=== PATIENT | female | born 1955 | race Caucasian/White ===

== ENCOUNTER 2020-03-01 13:52 | Inpatient (IN) | payer SELFPAY ==
--- NOTE | 2020-03-01 15:54 | CT_ITS ---
EXAMINATION: CT ABDOMEN AND PELVIS WITHOUT CONTRAST CLINICAL INFORMATION: Left-sided abdominal pain/flank pain. COMPARISON: None. TECHNIQUE: Multidetector volumetric imaging was performed from the superior aspect of the liver through the pubic symphysis. Sagittal and coronal reformatted images were obtained on the technologist's workstation. Lack of intravenous and oral contrast limits visceral evaluation. This CT examination was performed using dose optimization techniques as appropriate, variously including the following: *Automated exposure control *Adjustment of mA and/or kV according to patient size (this includes techniques or standardized protocols for targeted exams where dose is matched to indication/reason for exam; i.e. extremities or head) *Use of iterative reconstruction technique DLP: 430.12 mGy-cm FINDINGS: LUNG BASES: The visualized lung bases are unremarkable. LIVER, GALLBLADDER, AND BILIARY TREE: No hepatic abnormality. Status post cholecystectomy. PANCREAS: Unremarkable. SPLEEN: Unremarkable. ADRENAL GLANDS: Unremarkable. KIDNEYS AND URETERS: Mild left renal pelvicaliectasis is seen no left ureterectasis. No left nephrolithiasis. Small noncalcified fluid attenuation cysts are seen. A loss prevention representative exophytic cyst off of the upper pole measures 1.9 cm (image 43, series 5). The right kidney shows a 0.6 cm calculus in the upper pole. The right ureter is unremarkable. BLADDER: Incompletely distended without focal abnormality. GASTROINTESTINAL TRACT: The stomach is a very small hiatal hernia. The small bowel is unremarkable. The appendix is not visualized, but no evidence for acute inflammatory process in the right lower quadrant. The proximal descending colon shows a short segment of mural thickening with mild pericolonic infiltrative changes. No focal air or fluid collection is seen. The distal colon is unremarkable. ABDOMINAL WALL: No significant hernia is appreciated. LYMPH NODES: Normal. VASCULAR: Unremarkable. PELVIC VISCERA: Unremarkable. Mild free fluid is seen OSSEOUS STRUCTURES: L5-S1 mild degenerative disc disease. No suspicious abnormality. CT/CT abdomen pelvis wo con IMPRESSION: 1. Short segment mural thickening and pericolonic infiltrative changes in the proximal descending colon most consistent with acute diverticulitis or short segment colitis as a definitive diverticulum is not seen. 2. Mild left pelvocaliectasis without obstructing abnormality could be secondary to left ureteropelvic junction stenosis. Left renal cysts demonstrate benign features. Nonobstructing right upper pole intrarenal calculus. 3. Mild free fluid in the pelvis is presumed secondary to the colonic findings. 4. Very small hiatal hernia.
--- NOTE | 2020-03-01 15:58 | ED_ITS ---
HPI - Abdominal Pain General Chief Complaint: General Medical Stated Complaint: UTI Time Seen by Provider: 03/01/20 15:54 Source: patient Mode of arrival: ambulatory Limitations: no limitations History of Present Illness HPI narrative: 64-year-old female who reports that she has a history of diet- controlled diabetes presents ambulatory via triage from [facility] urgent care where she was referred from with a complaint of left-sided flank pain for the past couple of days prior to that she has had some dysuria with clotting of the urine and did notice very mild hematuria couple days ago. States he has had chi lls and subjective fever. States she does have remote history of UTI in the distant past but no history of frequent UTI. She denies any other symptoms. No vaginal discharge. No nausea vomiting or diarrhea. No recent travel or sick contacts. No URI symptoms. No chest pain or shortness of breath. States her pain has gotten progressively worse that trigger her to seek care today and pain is in the left side abdomen/flank. MD elicited complaint: flank pain Pertinent past history: past UTI Onset (ago): day(s) Pain Consistency: constant Location: L flank Severity: moderate Radiation: none Migration to: no migration Exacerbating factors: nothing Relieving factors: nothing Associated symptoms: denies other symptoms Related Data Home Medications Medication Instructions Recorded Confirmed No Known Home Meds 03/01/20 03/01/20 Allergies Allergy/AdvReac Type Severity Reaction Status Date / Time demerol Allergy Unknown swelling Uncoded 12/25/18 00:00 From DEMEROL Allergy Unknown UNKNOWN Uncoded 01/23/20 16:15 Review of Systems Review of Systems Constitutional: No Weight loss, Subjective Fever, Chills, No Night Sweats, No Fatigue, No Malaise ENT/Mouth: No Hearing loss, No Ear Pain, No Nasal Congestion, No Sinus Pain, No Hoarseness, No sore throat, No Rhinorrhea, No Swallowing Difficulty Eyes: No Eye Pain, No Swelling, No Redness, No Foreign Body, No Discharge, No Vision Changes Cardiovascular: No Chest Pain, No SOB, No Dyspnea on Exertion, No Orthopnea, No Edema, No Palpitations Respiratory: No Cough, No Sputum, No Wheezing, No Smoke Exposure, No Dyspnea Gastrointestinal: No Nausea, No Vomiting, No Diarrhea, No Constipation, + abdo vandana Pain, No Hematochezia, No Melena Genitourinary: no irregular bleeding, + Dysuria, No Urinary Frequency, No Hematuria, No Urinary Incontinence, No Urgency, + Flank Pain, No Urinary Flow Changes, No Hesitancy Musculoskeletal: No joint pain, No Myalgias, No Joint Swelling Skin: No Skin Lesions, No rash Neuro: No Weakness, No Numbness, No Paresthesias, No Loss of Consciousness, No Dizziness, No Headache Psych: No Anxiety/Panic, No Social Issues Heme/Lymph: No Bruising, No Bleeding,No Lymphadenopathy Endocrine: No Polyuria, No Polydipsia, No Temperature Intolerance Yes all other systems are reviewed and are negative Physical Exam Vital Signs: Vital Signs: Vital Signs Temp Pulse Resp BP Pulse Ox 03/01/20 19:51 99.9 F 104 H 15 135/60 98 03/01/20 18:35 99.1 F 03/01/20 16:07 100.0 F 118 H 16 135/61 98 Body Mass Index 24.0 Reviewed Const: General: cooperative and healthy appearing; No acute distress or intoxicated appearing Nutritional Appearance: average body habitus Orientation/consciousness: patient oriented x3 HENMT: Head: Yes normal to inspection Ears: hearing grossly normal bilaterally Eyes: General: appearance normal, both eyes and all related structures Visual Nieves: normal visual nieves by confrontation Neck: Neck: Yes normal visual inspection and No tender Thyroid: Thyroid normal Chest: Chest palpation & inspection: normal inspection of the chest Resp: Effort & Inspection: normal respiratory effort Cardio: Jugular venous distension: no JVD GI: Other: no peritonitis/ TTP Inspection: Yes normal to inspection Percussion: Yes normal to percussion Auscultation: normal bowel sounds : General: Yes CVA tenderness ( left-sided mild ) Back/Spine/Pelvis: Back: CVA tenderness ( left-sided mild ) Skin: General skin exam: no rashes or lesions noted Neuro: General: patient oriented x3 Extrem: General: Yes normal to inspection Course Course Course Narrative: 1600 interview 64-year-old female with history of dietary controlled diabetes presenting with dysuria and now left flank pain with subjective fever and chills for past 5 days referred from the urgent care. Hemodynamically stable. Afebrile / non tachy. will need labs, UA, abdominal CT r/o renal calculi/ obstructive process. Differential diagnosis include but not limited to urinary tract infection, renal calculi, hydro, pyelonephritis, urosepsis though not evident at this time. Lactic acid as well as blood cultures were also ordered. Reevaluation(s) Reevaluation #1: UA overtly infected. CT consistent with acute diverticulitis. No leukocytosis /no lactic acidosis. Low-grade temp. She was given ceftriaxone already. Given Flagyl case discussed with hospitalist for admission. Consultations Consultation #1: Hospitalist MDM - Abdominal Pain Differential Diagnosis Differential diagnosis: Likely abdominal pain, calculus of kidney, diverticulitis, gastroenteritis and renal colic; Unlikely aortic dissection, acute appendicitis, bowel perforation, constipation, endometriosis, gastritis, mesenteric ischemia, ovarian cyst, pancreatitis, peptic ulcer disease and small bowel obstruction Lab Data Result diagrams: 03/01/20 16:18 03/01/20 16:18 Labs: Lab Results 03/01/20 03/01/20 03/01/20 Range/Units 16:18 16:18 16:18 WBC 6.5 (4.8-10.8) X10*3/uL RBC 4.09 L (4.20-5.50) X10*6/uL Hgb 12.6 (12.0-16.0) g/dl Hct 37.5 (37-47) % MCV 91.7 (80-98) fL MCH 30.8 (27.0-33.0) pg MCHC 33.6 (31.0-35.0) g/dl RDW 11.9 (11.0-16.0) % Plt Count 89 L (160-400) X10*3/uL MPV 10.8 (9.4-12.3) fL Immature Gran % (Auto) 0.3 (0.0-0.4) % Neut % (Auto) 90.6 H (45-73) % Lymph % (Auto) 2.8 L (20-40) % [place] % (Auto) 6.3 (2-11) % Eos % (Auto) 0.0 (0-4) % Baso % (Auto) 0.0 (0-2) % Lymph # (Auto) 0.2 L (1.2-4.9) X10*3/uL [place] # (Auto) 0.4 (0.1-1.2) X10*3/uL Eos # (Auto) 0.0 (0.0-0.4) X10*3/uL Baso # (Auto) 0.0 (0.0-0.2) X10*3/uL Abs Immat Gran (auto) 0.02 (0.00-0.03) X10*3/uL Absolute Neuts (auto) 5.9 (2.0-8.3) X10*3/uL Absolute Nucleated RBC 0.000 (0.0-0.012) X10*3/uL Nucleated RBC % (auto) 0.0 (0.0-0.2) /100WBC Smear Tech's Comments VERIFIED Sodium 134 L (135-145) mmol/L Potassium 3.9 (3.3-5.1) mmol/l Chloride 97 (96-108) mmol/L Carbon Dioxide 21 L (22-29) mmol/L Anion Gap 20 (12-20) BUN 15 (9-16) mg/dL Creatinine 0.98 (0.5-1.4) mg/dL Estim Creat Clear Calc 50.1 Estimated GFR 57 Random Glucose 305 H (60-115) mg/dL Lactic Acid (0.5-2.0) mmol/L Calcium 9.3 (8.4-10.2) mg/dL Total Bilirubin 1.0 (0.0-1.0) mg/dL AST 27 (5-31) U/L ALT 17 (0-31) U/L Alkaline Phosphatase 92 (39-117) U/L Total Protein 6.8 (6.5-8.0) g/dL Albumin 4.0 (3.5-5.0) g/dL Urine Color YELLOW Urine Appearance CLOUDY Urine pH 5.5 (5.0-8.0) Ur Specific [place] >= 1.030 H (1.005-1.025) Urine Protein 2+ H (NEG-TRACE) MG/DL Urine Glucose (UA) 500 H (NEG) MG/DL Urine Ketones >=80 (NEG) MG/DL Urine Blood 2+ H (NEG) Urine Nitrite POS H (NEG) Ur Leukocyte Esterase NEG (NEG) Urine RBC 30-49 H (0) /HPF Urine WBC 15-29 H (0-4) /HPF Ur Squamous Epith Cells 2+ /LPF Urine Bacteria 2+ /LPF Coronavirus (PCR) (Negative) 03/01/20 03/01/20 Range/Units 16:53 19:18 WBC (4.8-10.8) X10*3/uL RBC (4.20-5.50) X10*6/uL Hgb (12.0-16.0) g/dl Hct (37-47) % MCV (80-98) fL MCH (27.0-33.0) pg MCHC (31.0-35.0) g/dl RDW (11.0-16.0) % Plt Count (160-400) X10*3/uL MPV (9.4-12.3) fL Immature Gran % (Auto) (0.0-0.4) % Neut % (Auto) (45-73) % Lymph % (Auto) (20-40) % [place] % (Auto) (2-11) % Eos % (Auto) (0-4) % Baso % (Auto) (0-2) % Lymph # (Auto) (1.2-4.9) X10*3/uL [place] # (Auto) (0.1-1.2) X10*3/uL Eos # (Auto) (0.0-0.4) X10*3/uL Baso # (Auto) (0.0-0.2) X10*3/uL Abs Immat Gran (auto) (0.00-0.03) X10*3/uL Absolute Neuts (auto) (2.0-8.3) X10*3/uL Absolute Nucleated RBC (0.0-0.012) X10*3/uL Nucleated RBC % (auto) (0.0-0.2) /100WBC Smear Tech's Comments Sodium (135-145) mmol/L Potassium (3.3-5.1) mmol/l Chloride (96-108) mmol/L Carbon Dioxide (22-29) mmol/L Anion Gap (12-20) BUN (9-16) mg/dL Creatinine (0.5-1.4) mg/dL Estim Creat Clear Calc Estimated GFR Random Glucose (60-115) mg/dL Lactic Acid 1.6 (0.5-2.0) mmol/L Calcium (8.4-10.2) mg/dL Total Bilirubin (0.0-1.0) mg/dL AST (5-31) U/L ALT (0-31) U/L Alkaline Phosphatase (39-117) U/L Total Protein (6.5-8.0) g/dL Albumin (3.5-5.0) g/dL Urine Color Urine Appearance Urine pH (5.0-8.0) Ur Specific [place] (1.005-1.025) Urine Protein (NEG-TRACE) MG/DL Urine Glucose (UA) (NEG) MG/DL Urine Ketones (NEG) MG/DL Urine Blood (NEG) Urine Nitrite (NEG) Ur Leukocyte Esterase (NEG) Urine RBC (0) /HPF Urine WBC (0-4) /HPF Ur Squamous Epith Cells /LPF Urine Bacteria /LPF Coronavirus (PCR) NEGATIVE (Negative) Discharge Plan Discharge Clinical Impression: Diverticulitis, UTI (urinary tract infection), Diabetes Patient Disposition: Admitted As Inpatient Prescriptions: No Action No Known Home Meds RF: 0 PMFSH Past Medical History Attestation statement: The following information was validated with the patient. Medical History (Updated 03/01/20 @ 21:00 by Lee Engle NP) Diabetes Family History Family History (Updated 03/01/20 @ 19:49 by Stacy Villanueva NP) Father Pancreatic cancer Social History Social History (Updated 03/01/20 @ 19:49 by Stacy Villanueva NP) Household Members: Spouse and Children Smoked in Last 30 Days: No Use of substances other than those prescribed or required for medical reasons: No Advance Directives: No Advance Directives Information Provided: Yes
[2020-03-01 16:07] VITALS: BP 135/61; PULSE 118; RESP 16; TEMP 37.8; O2SAT 98; BMI 24.0
[2020-03-01 16:32] LABS: MANUAL DIFF FLAG SCAN; Mean Corpuscular HGB Conc 33.6 g/dl (31.0-35.0); Mean Corpuscular Hemoglobin 30.8 pg (27.0-33.0); Mean Corpuscular Volume 91.7 fL (80-98); PLT CLUMP 1; Red Cell Distribution Width 11.9 % (11.0-16.0); SCAN SMEAR FLAG 1
[2020-03-01 16:34] LABS: Hematocrit 37.5 % (37-47); Hemoglobin 12.6 g/dl (12.0-16.0); Imm Gran Abs Auto 0.02 X10*3/uL (0.00-0.03); Imm Gran Pct Auto 0.3 % (0.0-0.4); Lymphocytes Absolute Auto 0.2 X10*3/uL (1.2-4.9); Lymphocytes Percent Auto 2.8 % (20-40); Mean Platelet Volume 10.8 fL (9.4-12.3); Monocytes Absolute Auto 0.4 X10*3/uL (0.1-1.2); Monocytes Percent Auto 6.3 % (2-11); Neutrophils Absolute Auto 5.9 X10*3/uL (2.0-8.3); Neutrophils Percent Auto 90.6 % (45-73); Red Blood Count 4.09 X10*6/uL (4.20-5.50); White Blood Count 6.5 X10*3/uL (4.8-10.8)
[2020-03-01 16:40] LABS: Glucose Urine UA 500 MG/DL (NEG); Leukocyte Esterase Urine NEG (NEG); Nitrite Urine POS (NEG); PH 5.5 (5.0-8.0); Specific Gravity - Urine >= 1.030 (1.005-1.025); Urine Blood 2+ (NEG); Urine Ketones >=80 MG/DL (NEG); Urine Protein 2+ MG/DL (NEG-TRACE)
[2020-03-01 16:43] LABS: Appearance Urine CLOUDY; Color Urine YELLOW
[2020-03-01 16:50] LABS: Platelet Count 89 X10*3/uL (160-400)
[2020-03-01 16:51] LABS: SLIDE REVIEW VERIFIED
[2020-03-01 16:56] LABS: RBC Urine 30-49 /HPF (0)
[2020-03-01 16:57] LABS: Bacteria Urine 2+ /LPF; Squamous Epithelial Cell Urine 2+ /LPF
[2020-03-01] MEDS: 0.9 % Sodium Chloride 500 ML 1000 ML IV (17:01)
[2020-03-01] MEDS: Acetaminophen 325 MG TABLET 650 MG PO ×2 (17:06→22:16)
[2020-03-01 17:22] LABS: Alanine Aminotransferase 17 U/L (0-31); Alkaline Phosphatase 92 U/L (39-117); Anion Gap 20 (12-20); Aspartate Amino Transferase 27 U/L (5-31); Blood Urea Nitrogen 15 mg/dL (9-16); Calcium 9.3 mg/dL (8.4-10.2); Carbon Dioxide 21 mmol/L (22-29); Chloride 97 mmol/L (96-108); Creatinine Clr Calc Pharmacy 50.1; Estimated Glomerular Filt Rate 57; Glucose Random 305 mg/dL (60-115); Potassium 3.9 mmol/l (3.3-5.1); Sodium 134 mmol/L (135-145); Total Protein 6.8 g/dL (6.5-8.0)
[2020-03-01 17:25] LABS: Lactic Acid 1.6 mmol/L (0.5-2.0)
[2020-03-01] MEDS: cefTRIAXone sodium 1 GM in 0.9 % Sodium Chloride 50 ML IV (17:32)
[2020-03-01 18:35] VITALS: TEMP 37.3
--- NOTE | 2020-03-01 19:43 | PM.IMHP ---
History of Present Illness Date of Service: 03/01/20 <Stacy Villanueva NP - Last Filed: 03/01/20 19:55> Chief Complaint: Abdominal pain <Stacy Villanueva NP - Last Filed: 03/01/20 19:55> 64-year-old woman presenting to the ER with complaints of abdominal pain. She reports she has had abdominal pain for the last 4 days with nausea, vomiting but denies diarrhea. She reported that she has felt unwell with poor appetite and developed fever and chills at home. She denied any recent travel or improperly cooked foods or any history of IBD. Abdominal CT is showing acute diverticulitis. She is not noted to have elevated white blood cell count , she had a low-grade temperature of a 100.0 degrees. Urinalysis was positive. She was given IV fluids, Tylenol, Rocephin while in the ER. She will be admitted for further management treatment of acute diverticulitis and UTI. <Stacy Villanueva NP - Last Filed: 03/01/20 19:55> Review of Systems Review of Systems: Reports fever and poor appetite respiratory denies any shortness of breath coverage production cardiovascular is adjustment of any PND or edema gastrointestinal see above genitourinary reports hematuria musculoskeletal denies any joint pain or swelling neuropsych denies any weakness or seizures all other systems reviewed are negative <DIGNA Miller Last Filed: 03/01/20 19:55> [facility] Medical History: Medical History Diabetes History of cellulitis <DIGNA Miller Last Filed: 03/01/20 19:55> Functional capacity: independent ambulation <Stacy Villanueva NP - Last Filed: 03/01/20 19:55> Family History: Family History Father Pancreatic cancer Mother NHL (non-Hodgkin's lymphoma) <DIGNA Miller Last Filed: 03/01/20 19:55> Surgical History: Surgical History H/O tubal ligation Hx of tonsillectomy S/P cholecystectomy (~1988) S/P right knee arthroscopy (~2002) <DIGNA Miller Last Filed: 03/01/20 19:55> Social History: Social History Household Members: Spouse and Children Housing: House Smoking Status: Never smoker Second Hand Smoke Exposure: No service: No Current occupational status: unemployed and previously employed 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 <Stacy Villanueva NP - Last Filed: 03/01/20 19:55> Meds Allergies/Adverse reactions: Allergies Allergy/AdvReac Type Severity Reaction Status Date / Time demerol Allergy Unknown swelling Uncoded 12/25/18 00:00 From DEMEROL Allergy Unknown UNKNOWN Uncoded 01/23/20 16:15 <Stacy Villanueva NP - Last Filed: 03/01/20 19:55> Physical Exam Vital Signs and Narrative: Vital Signs: Last Vital Signs Temp 99.1 F 03/01/20 18:35 Pulse 118 H 03/01/20 16:07 Resp 16 03/01/20 16:07 BP 135/61 03/01/20 16:07 Pulse Ox 98 03/01/20 16:07 Body Mass Index 24.0 <Stacy Villanueva NP - Last Filed: 03/01/20 19:55> Appearing in no acute distress head is normocephalic atraumatic eyes pupils are PERRLA sclera is anicteric mouth throat mucous membranes are intact and moist neck is supple no lymphadenopathy, no JVD noted lung sounds are clear to auscultation heart regular rate rhythm, clear S1, S2 positive bowel sounds. lower abdominal pain neuro patient is alert x3, no focal deficits <Stacy Villanueva NP - Last Filed: 03/01/20 19:55> Results Labs Labs: Laboratory Tests 03/01/20 03/01/20 03/01/20 16:18 16:18 16:18 WBC 6.5 RBC 4.09 L Hgb 12.6 Hct 37.5 MCV 91.7 MCH 30.8 MCHC 33.6 RDW 11.9 Plt Count 89 L MPV 10.8 Immature Gran % (Auto) 0.3 Neut % (Auto) 90.6 H Lymph % (Auto) 2.8 L [place] % (Auto) 6.3 Eos % (Auto) 0.0 Baso % (Auto) 0.0 Lymph # (Auto) 0.2 L [place] # (Auto) 0.4 Eos # (Auto) 0.0 Baso # (Auto) 0.0 Abs Immat Gran (auto) 0.02 Absolute Neuts (auto) 5.9 Absolute Nucleated RBC 0.000 Nucleated RBC % (auto) 0.0 Smear Tech's Comments VERIFIED Sodium 134 L Potassium 3.9 Chloride 97 Carbon Dioxide 21 L Anion Gap 20 BUN 15 Creatinine 0.98 Estim Creat Clear Calc 50.1 Estimated GFR 57 Random Glucose 305 H Lactic Acid Calcium 9.3 Total Bilirubin 1.0 AST 27 ALT 17 Alkaline Phosphatase 92 Total Protein 6.8 Albumin 4.0 Urine Color YELLOW Urine Appearance CLOUDY Urine pH 5.5 Ur Specific [place] >= 1.030 H Urine Protein 2+ H Urine Glucose (UA) 500 H Urine Ketones >=80 Urine Blood 2+ H Urine Nitrite POS H Ur Leukocyte Esterase NEG Urine RBC 30-49 H Urine WBC 15-29 H Ur Squamous Epith Cells 2+ Urine Bacteria 2+ 03/01/20 16:53 WBC RBC Hgb Hct MCV MCH MCHC RDW Plt Count MPV Immature Gran % (Auto) Neut % (Auto) Lymph % (Auto) [place] % (Auto) Eos % (Auto) Baso % (Auto) Lymph # (Auto) [place] # (Auto) Eos # (Auto) Baso # (Auto) Abs Immat Gran (auto) Absolute Neuts (auto) Absolute Nucleated RBC Nucleated RBC % (auto) Smear Tech's Comments Sodium Potassium Chloride Carbon Dioxide Anion Gap BUN Creatinine Estim Creat Clear Calc Estimated GFR Random Glucose Lactic Acid 1.6 Calcium Total Bilirubin AST ALT Alkaline Phosphatase Total Protein Albumin Urine Color Urine Appearance Urine pH Ur Specific [place] Urine Protein Urine Glucose (UA) Urine Ketones Urine Blood Urine Nitrite Ur Leukocyte Esterase Urine RBC Urine WBC Ur Squamous Epith Cells Urine Bacteria <Stacy Villanueva NP - Last Filed: 03/01/20 19:55> Assessment and Plan (1) Diverticulitis: Problem details: Most likely diverticultis rather than UTI but hematuria concerning <Stacy Villanueva NP - Last Filed: 03/01/20 19:55> Status: Acute <Stacy Villanueva NP - Last Filed: 03/01/20 19:55> (2) UTI (urinary tract infection): Status: Acute <Stacy Villanueva NP - Last Filed: 03/01/20 19:55> (3) Diabetes: Status: Acute <Stacy Villanueva NP - Last Filed: 03/01/20 19:55> 64-year-old woman admitted with acute diverticulitis and urinary tract infection. She has no history of diverticulitis in the past. She reports that she only has a history of diabetes. Acute diverticulitis. GI consultation, IV fluids, clears for now. Will treat with Rocephin and Flagyl for now. UTI. Continue Rocephin, follow urine cultures. Diabetes mellitus. Sliding scale, clear diet for now and advance to ADA diet /Vegan diet DVT prophylaxis with heparin Case discussed with Dr. Collier Full code <Stacy Villanueva NP - Last Filed: 03/01/20 19:55>
[2020-03-01 19:51] VITALS: BP 135/60; PULSE 104; RESP 15; TEMP 37.7; O2SAT 98
[2020-03-01] MEDS: metroNIDAZOLE/NS 500 MG/100 ML PIGGYBACK 100 MG IV (20:01)
[2020-03-01 20:18] LABS: SARS COV2 PCR INHOUSE NEGATIVE (Negative)
[2020-03-01] MEDS: ondansetron HCL 4 MG/2 ML VIAL IVPUSH (20:55)
[2020-03-01] MEDS: Morphine Sulfate 4 MG/ML CARTRIDGE IVPUSH (20:55)
--- NOTE | 2020-03-01 21:04 | PC.NURSE ---
{Report called to give to floor. Glenn Zimmerman will call back for report
[2020-03-01 22:07] VITALS: BP 132/60; PULSE 132; RESP 18; TEMP 38.8; O2SAT 94
[2020-03-01 22:11] LABS: Glucose, Whole Blood 255 mg/dL (60-115)
[2020-03-01] MEDS: 0.9 % Sodium Chloride 1,000 ML 100 ML IVCONT (22:17)
[2020-03-01] MEDS: Heparin Sodium,Porcine 5,000 UNIT/ML VIAL 5000 UNIT SUBCUT (22:17)
[2020-03-01 22:35] VITALS: BP 132/60; PULSE 134; RESP 18; TEMP 38.8; O2SAT 94
[2020-03-01 23:47] VITALS: BP 111/49; PULSE 100; RESP 19; TEMP 37.9; O2SAT 96
[2020-03-02] MEDS: metroNIDAZOLE/NS 500 MG/100 ML PIGGYBACK 100 MG IV ×3 (03:46→19:23)
[2020-03-02 03:54] VITALS: BP 117/56; PULSE 99; RESP 18; TEMP 37.4; O2SAT 96
[2020-03-02] MEDS: Acetaminophen 325 MG TABLET 650 MG PO ×3 (04:18→19:23)
[2020-03-02 06:13] LABS: PLT CLUMP 1; Red Cell Distribution Width 11.9 % (11.0-16.0)
[2020-03-02 06:15] LABS: Hematocrit 30.8 % (37-47); Hemoglobin 10.1 g/dl (12.0-16.0); Mean Corpuscular HGB Conc 32.8 g/dl (31.0-35.0); Mean Corpuscular Hemoglobin 30.1 pg (27.0-33.0); Mean Corpuscular Volume 91.7 fL (80-98); Mean Platelet Volume 10.8 fL (9.4-12.3); Platelet Count 77 X10*3/uL (160-400); Red Blood Count 3.36 X10*6/uL (4.20-5.50); White Blood Count 4.6 X10*3/uL (4.8-10.8)
[2020-03-02 06:39] LABS: Anion Gap 17 (12-20); Blood Urea Nitrogen 16 mg/dL (9-16); Calcium 8.2 mg/dL (8.4-10.2); Carbon Dioxide 21 mmol/L (22-29); Chloride 101 mmol/L (96-108); Creatinine Clr Calc Pharmacy 66.3; Estimated Glomerular Filt Rate > 60; Glucose Random 236 mg/dL (60-115); Potassium 3.5 mmol/l (3.3-5.1); Sodium 135 mmol/L (135-145)
[2020-03-02 07:40] LABS: Band Neutrophils Percent 12 % (3-5); Lymphocytes Percent Manual 1 % (20-40); Metamyelocytes Percent 1 %; Monocytes Absolute Manual 0.3 X10*3/uL (0.0-1.2); Monocytes Percent Manual 7 % (2-11); Neutrophils Absolute Manual 4.2 X10*3/uL (2.2-7.9); Neutrophils Percent Manual 79 % (45-73); Platelet Estimate DECREASED (NORMAL); Platelet Morphology Comment NORMAL
[2020-03-02 07:41] LABS: RBC Morphology NORMAL
[2020-03-02] MEDS: Heparin Sodium,Porcine 5,000 UNIT/ML VIAL 5000 UNIT SUBCUT ×2 (07:46→21:16)
[2020-03-02] MEDS: 0.9 % Sodium Chloride 1,000 ML 100 ML IVCONT ×2 (07:46→16:26)
--- NOTE | 2020-03-02 07:48 | P.CNGI_ITS ---
History of Present Illness Data of Consult Service Date: 03/02/20 Requesting physician: Stacy Villanueva Primary Care Provider: MD WILL Coto Reason for consult: Diverticulitis 64 YF with DM seen at [facility] on 03/01/20 with 3 day hx of left flank pain and dysurea. Abd pain was accompanied by decreased appetite, nausea and an episode of vomiting on 02/28/[address] scan showed: 1. Short segment mural thickening and pericolonic infiltrative changes in the proximal descending colon most consistent with acute diverticulitis or short segment colitis as a definitive diverticulum is not seen. 2. Mild left pelvocaliectasis without obstructing abnormality could be secondary to left ureteropelvic junction stenosis. Left renal cysts demonstrate benign features. Nonobstructing right upper pole intrarenal calculus. 3. Mild free fluid in the pelvis is presumed secondary to the colonic findings. 4. Very small hiatal hernia. Pt was started on IV antibiotics and admitted for further management. She notes improvement in abd pain from 02/14 on admission to 08/15 today. She complains of heartburn and odynophagia since yesterday. Patient admits to taking ibuprofen p.r.n. for a back pain. Patient denies major cardiac or pulmonary problems. She notes some snoring but denies obstructive sleep apnea. She denies problems with anesthesia in the past. Review of Systems Constitutional: Constitutional: Reports fever(s), Denies headache(s) and Denies weight loss Eyes: Eyes: Denies eye discharge and Denies irritation ENT: Reports Normal hearing present, Denies dysphagia, Denies dizziness, Denie s headache(s) and Reports odynophagia Cardiovascular: Cardiovascular: Reports chest pain, Denies leg edema and Denies dyspnea on exertion Respiratory: Respiratory: Denies cough and Denies dyspnea on exertion Gastrointestinal: Gastrointestinal: Reports abdominal pain, Denies change in bowel habits, Denies dysphagia, Reports heartburn, Reports diarrhea, Reports nausea, Reports odynophagia and Reports vomiting Genitourinary: Genitourinary: Denies difficulty voiding, Reports dysuria and Reports flank pain Musculoskeletal: Musculoskeletal: Denies back pain and Denies arthralgias Integumentary/Breasts: Skin/Breast: Denies pruritus, Denies rash and Denies jaundice Neurologic: Reports Normal hearing present, Denies Abnormal speech present, Denies dizziness, Denies headache(s) and Denies seizure-like activity Psychiatric: Psychiatric: Denies anxiety, Denies depression and Denies panic attacks Endocrine: Endocrine: Denies cold intolerance, Denies flushing and Denies heat intolerance Hematologic/Lymphatic: Hematologic/Lymphatic: Denies easy bleeding and Denies easy bruising PMFSH Past Medical History Medical History Diabetes History of cellulitis Functional capacity: independent ambulation Family History Family History Father Pancreatic cancer Mother NHL (non-Hodgkin's lymphoma) Surgical History Surgical History H/O tubal ligation Hx of tonsillectomy S/P cholecystectomy (~1988) S/P right knee arthroscopy (~2002) Social History Social History Household Members: Spouse and Children Housing: House Smoking Status: Never smoker Second Hand Smoke Exposure: No service: No Current occupational status: unemployed and previously employed 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 Allergy/AdvReac Type Severity Reaction Status Date / Time demerol Allergy Unknown swelling Uncoded 12/25/18 00:00 From DEMEROL Allergy Unknown UNKNOWN Uncoded 01/23/20 16:15 Physical Exam Vital Signs: Vital Signs: Vital Signs Temp Pulse Resp BP Pulse Ox 03/02/20 03:54 99.3 F 99 18 117/56 L 96 03/01/20 23:47 100.2 F 100 19 111/49 L 96 03/01/20 22:35 101.9 F H 134 H 18 132/60 94 03/01/20 22:07 101.9 F H 132 H 18 132/60 94 03/01/20 19:51 99.9 F 104 H 15 135/60 98 03/01/20 18:35 99.1 F 03/01/20 16:07 100.0 F 118 H 16 135/61 98 Body Mass Index 24.0 Const: General: no acute distress and ill appearing Nutritional Appearance: average body habitus Orientation/consciousness: patient oriented x3 Eyes: General: appearance normal, both eyes and all related structures Neck: Neck: Yes normal visual inspection Resp: Auscultation: clear to auscultation bilaterally Cardio: Rhythm: regular rhythm Heart sounds: S1 normal heart sound present, S2 normal heart sound present and no murmurs GI: Palpation (GI): Tenderness to palpation present (GI) (LLQ and lt flank) Auscultation: normal bowel sounds Rectal Exam - Female: deferred Neuro: General: patient oriented x3 Cranial nerves: Yes Normal hearing present Speech: No Abnormal speech present Results Labs CBC & Chem 7: 03/04/20 06:09 03/05/20 05:38 Labs: Short CBC 03/01/20 03/02/20 Range/Units 16:18 05:35 WBC 6.5 4.6 L (4.8-10.8) X10*3/uL Hgb 12.6 10.1 L (12.0-16.0) g/dl Hct 37.5 30.8 L (37-47) % Plt Count 89 L 77 L (160-400) X10*3/uL BMP 03/01/20 03/02/20 16:18 05:35 Sodium 134 L 135 Potassium 3.9 3.5 Chloride 97 101 Carbon Dioxide 21 L 21 L BUN 15 16 Creatinine 0.98 0.74 Calcium 9.3 8.2 L Liver Function 03/01/20 Range/Units 16:18 Total Bilirubin 1.0 (0.0-1.0) mg/dL AST 27 (5-31) U/L ALT 17 (0-31) U/L Alkaline Phosphatase 92 (39-117) U/L Albumin 4.0 (3.5-5.0) g/dL Urine 03/01/20 Range/Units 16:18 Urine Color YELLOW Urine Appearance CLOUDY Urine pH 5.5 (5.0-8.0) Ur Specific Trout >= 1.030 H (1.005-1.025) Urine Protein 2+ H (NEG-TRACE) MG/DL Urine Glucose (UA) 500 H (NEG) MG/DL Microbiology Microbiology Results: Microbiology 03/01/20 16:18 Blood - Venous Blood Culture - Preliminary 03/01/20 16:53 Blood - Venous Blood Culture - Preliminary Assessment and Plan (1) Diverticulitis: Problem details: Most likely diverticultis rather than UTI but hematuria concerning Status: Acute (2) UTI (urinary tract infection): Status: Acute 64 YF from [facility] ([facility]) with DM admitted with fever, LLQ/left flank pain, nausea and vomiting. Lab evaluation showed UTI and preliminary blood culture results showed Gram-negative rods - likely bacteremia from UTI. Abdominal CT scan showed changes in the descending colon suggestive of diverticulitis. Patient notes improvement in her abdominal pain. Pt denies past evaluation with a colonoscopy. She complains of heartburn and odynophagia. RECOMMENDATIONS: 1. Continue IV antibiotics until abdominal pain improves. 2. Start PO Omeprazole for heartburn and odynophagia - order placed. 3. Pt will be scheduled for an EGD and Colonoscopy as an outpatient in 5-6 weeks (after diverticulitis resolves)
[2020-03-02 07:52] VITALS: BP 118/57; PULSE 88; RESP 18; TEMP 36.8; O2SAT 96
[2020-03-02 07:56] LABS: Glucose, Whole Blood 213 mg/dL (60-115)
--- NOTE | 2020-03-02 08:36 | MHC.CM.PN ---
pt lives c her in their home. she reports that she is independent but if she needs help then her can help her, this will include a ride home at dc. pt denies the need for vna at this time. pt is presenting c no insurance, a ref. has been made to financial svcs. for this . dc plan is home no svcs. cm to cont. to follow.
[2020-03-02 12:00] VITALS: BP 131/63; PULSE 95; RESP 20; TEMP 37.7; O2SAT 96
[2020-03-02 12:07] LABS: Glucose, Whole Blood 190 mg/dL (60-115)
[2020-03-02 15:32] VITALS: BP 118/57; PULSE 84; RESP 18; TEMP 36.9; O2SAT 96
--- NOTE | 2020-03-02 15:44 | HO.PM.IMPN ---
Subjective Subjective Date of Service: 03/02/20 Interval History: patient seen and examined at bedside patient reported abdominal pain Physical Exam Vital Signs: Vital Signs: Vital Signs Temp Pulse Resp BP Pulse Ox 03/02/20 15:32 98.5 F 84 18 118/57 L 96 03/02/20 12:00 99.9 F 95 20 131/63 96 03/02/20 07:52 98.2 F 88 18 118/57 L 96 03/02/20 03:54 99.3 F 99 18 117/56 L 96 03/01/20 23:47 100.2 F 100 19 111/49 L 96 03/01/20 22:35 101.9 F H 134 H 18 132/60 94 03/01/20 22:07 101.9 F H 132 H 18 132/60 94 03/01/20 19:51 99.9 F 104 H 15 135/60 98 03/01/20 18:35 99.1 F 03/01/20 16:07 100.0 F 118 H 16 135/61 98 Body Mass Index 24.0 Appearing in no acute distress neck is supple no lymphadenopathy, no JVD noted lung sounds are clear to auscultation heart regular rate rhythm, clear S1, S2 positive bowel sounds. lower abdominal tenderness neuro patient is alert x3, no focal deficits Objective Data Current Medications Generic Name Dose Route Start Last Admin Trade Name Christa PRN Reason Stop Dose Admin Acetaminophen 650 mg 03/01/20 21:17 03/02/20 12:20 Acetaminophen 325 Mg Tablet PO 650 mg Q6H PRN Administration Pain, Mild (Pain Scale 1-3) Heparin Sodium (Porcine) 5,000 unit 03/01/20 21:17 03/02/20 07:46 Heparin Sodium,Porcine 5,000 Unit/Ml Vial SUBCUT 5,000 unit Q12H KHRIS Administration Sodium Chloride 1,000 mls @ 100 mls/hr 03/01/20 21:17 03/02/20 07:46 Ns IVCONT 100 mls/hr .Q10H KHRIS Administration Ceftriaxone Sodium 1 gm/ 50 mls @ 100 mls/hr 03/01/20 17:00 03/01/20 21:29 Sodium Chloride IV Not Given Q24H KHRIS Metronidazole 500 mg in 100 mls @ 100 mls/hr 03/02/20 04:00 03/02/20 13:26 Flagyl IV Infused Q8H KHRIS Infusion Insulin Human Lispro 0 unit 03/02/20 07:30 03/02/20 12:13 Insulin Lispro 100 Unit/Ml 3 Ml Vial SUBCUT Not Given QIDACHS [facility] Protocol Ondansetron HCl 4 mg 03/01/20 21:17 Ondansetron Hcl 4 Mg/2 Ml Vial IVPUSH Q8H PRN Nausea and Vomiting Sodium Chloride 3 ml 03/02/20 00:00 03/02/20 15:27 0.9 % Sodium Chloride Flush 3 Ml Syringe IVFLUSH Not Given QSHIFT [facility] Labs CBC & Chem 7: 03/02/20 05:35 03/02/20 05:35 Microbiology Microbiology Results: Microbiology 03/01/20 17:00 Urine clean catch - Clean Catch Midstream Urine Culture - Final 03/01/20 16:18 Blood - Venous Blood Culture - Preliminary 03/01/20 16:53 Blood - Venous Blood Culture - Preliminary Assessment and Plan (1) Diverticulitis: Status: Acute (2) UTI (urinary tract infection): Status: Acute (3) Diabetes: Status: Acute Assessment and Plan: 64-year-old woman admitted with acute diverticulitis and urinary tract infection. She has no history of diverticulitis in the past. She reports that she only has a history of diabetes. Acute diverticulitis. still complaining of abdominal pain continue Rocephin and Flagyl continue IV fluid continue clear liquids UTI. Continue Rocephin, follow urine cultures. Diabetes mellitus. continue Sliding scale monitor blood glucose DVT prophylaxis with heparin
[2020-03-02] MEDS: cefTRIAXone sodium 1 GM in 0.9 % Sodium Chloride 50 ML IV (16:26)
[2020-03-02 16:28] LABS: Glucose, Whole Blood 212 mg/dL (60-115)
[2020-03-02 19:15] VITALS: BP 123/57; PULSE 94; RESP 20; TEMP 37.9; O2SAT 95
[2020-03-02] MEDS: ondansetron HCL 4 MG/2 ML VIAL IVPUSH (19:23)
[2020-03-02 21:45] LABS: Glucose, Whole Blood 232 mg/dL (60-115)
[2020-03-02 23:52] VITALS: BP 128/61; PULSE 90; RESP 19; TEMP 37.5; O2SAT 94
[2020-03-03] MEDS: 0.9 % Sodium Chloride 1,000 ML 100 ML IVCONT ×2 (03:00→12:13)
[2020-03-03 03:06] VITALS: BP 131/61; PULSE 88; RESP 19; TEMP 37.2; O2SAT 96
[2020-03-03] MEDS: metroNIDAZOLE/NS 500 MG/100 ML PIGGYBACK 100 MG IV ×3 (03:33→20:30)
[2020-03-03] MEDS: Omeprazole 20 MG CAPSULE.DR PO ×2 (05:30→17:01)
[2020-03-03 07:28] VITALS: BP 145/67; PULSE 82; RESP 18; TEMP 37.3; O2SAT 95
[2020-03-03 07:29] LABS: Glucose, Whole Blood 183 mg/dL (60-115)
[2020-03-03] MEDS: Insulin Lispro 100 UNIT/ML 3 ML VIAL SUBCUT ×3 (07:36→17:02)
[2020-03-03] MEDS: Heparin Sodium,Porcine 5,000 UNIT/ML VIAL 5000 UNIT SUBCUT ×2 (07:36→20:30)
[2020-03-03] MEDS: 0.9 % Sodium Chloride Flush 3 ML SYRINGE IVFLUSH ×2 (07:37→17:01)
[2020-03-03 11:44] LABS: Glucose, Whole Blood 180 mg/dL (60-115)
[2020-03-03 12:00] VITALS: BP 137/62; PULSE 82; RESP 20; TEMP 37.6; O2SAT 96
[2020-03-03 15:38] VITALS: BP 127/60; PULSE 77; RESP 18; TEMP 37.3; O2SAT 95
[2020-03-03 16:36] LABS: Glucose, Whole Blood 215 mg/dL (60-115)
[2020-03-03] MEDS: cefTRIAXone sodium 1 GM in 0.9 % Sodium Chloride 50 ML IV (17:01)
--- NOTE | 2020-03-03 17:03 | P.PNIM_ITS ---
Subjective Subjective Date of Service: 03/03/20 Interval History: UTI Review of Systems denies any abd pain or sob or chest pains Physical Exam Vital Signs: Vital Signs: Vital Signs Temp Pulse Resp BP Pulse Ox 03/03/20 15:38 99.1 F 77 18 127/60 95 03/03/20 12:00 99.6 F 82 20 137/62 96 03/03/20 07:28 99.1 F 82 18 145/67 H 95 03/03/20 03:06 98.9 F 88 19 131/61 96 03/02/20 23:52 99.5 F 90 19 128/61 94 03/02/20 19:15 100.3 F 94 20 123/57 L 95 Body Mass Index 24.0 Physical exam: Cvs: rrr, [id number] , no murmur res: clear to auscultation ,no rhonchii or wheezing abd: no rebound or guarding ,nt, bs present. ext pulses present , no cyanosis neuro: axo3 , nonfocal. Objective Data Current Medications Generic Name Dose Route Start Last Admin Trade Name Rashaunq PRN Reason Stop Dose Admin Acetaminophen 650 mg 03/01/20 21:17 03/02/20 19:23 Acetaminophen 325 Mg Tablet PO 650 mg Q6H PRN Administration Pain, Mild (Pain Scale 1-3) Heparin Sodium (Porcine) 5,000 unit 03/01/20 21:17 03/03/20 07:36 Heparin Sodium,Porcine 5,000 Unit/Ml Vial SUBCUT 5,000 unit Q12H KHRIS Administration Sodium Chloride 1,000 mls @ 100 mls/hr 03/01/20 21:17 03/03/20 12:13 Ns IVCONT 100 mls/hr .Q10H KHRIS Administration Ceftriaxone Sodium 1 gm/ 50 mls @ 100 mls/hr 03/01/20 17:00 03/02/20 16:56 Sodium Chloride IV Infused Q24H KHRIS Infusion Metronidazole 500 mg in 100 mls @ 100 mls/hr 03/02/20 04:00 03/03/20 13:26 Flagyl IV Infused Q8H KHRIS Infusion Insulin Human Lispro 0 unit 03/02/20 07:30 03/03/20 12:12 Insulin Lispro 100 Unit/Ml 3 Ml Vial SUBCUT 2 unit QIDACHS KHRIS Administration Protocol Omeprazole 20 mg 03/03/20 06:30 03/03/20 05:30 Omeprazole 20 Mg Capsule. PO 20 mg BID@3564,1710 [facility] Administration Ondansetron HCl 4 mg 03/01/20 21:17 03/02/20 19:23 Ondansetron Hcl 4 Mg/2 Ml Vial IVPUSH 4 mg Q8H PRN Administration Nausea and Vomiting Ondansetron HCl 4 mg 03/03/20 10:16 Ondansetron Hcl 4 Mg/2 Ml Vial IVPUSH Q8H PRN Nausea Sodium Chloride 3 ml 03/02/20 00:00 03/03/20 07:37 0.9 % Sodium Chloride Flush 3 Ml Syringe IVFLUSH 3 ml QSHIFT [facility] Administration Labs CBC & Chem 7: 03/02/20 05:35 03/02/20 05:35 Microbiology Microbiology Results: Microbiology 03/01/20 16:53 Blood - Venous Blood Culture - Preliminary Gram negative constantine 03/01/20 16:18 Blood - Venous Blood Culture - Preliminary Gram negative constantine 03/01/20 17:00 Urine clean catch - Clean Catch Midstream Urine Culture - Final Assessment and Plan (1) Diverticulitis: Status: Acute (2) UTI (urinary tract infection): Status: Acute (3) Diabetes: Status: Acute Assessment and Plan: 64-year-old woman admitted with acute diverticulitis and urinary tract infection. She has no history of diverticulitis in the past. She reports that she only has a history of diabetes. 1.Acute diverticulitis. still complaining of abdominal pain continue Rocephin and Flagyl continue IV fluid continue clear liquids stool studies , advance diet to full liq 2.UTI. Continue Rocephin, follow urine cultures. 3.Diabetes mellitus. continue Sliding scale monitor blood glucose DVT prophylaxis with heparin
[2020-03-03 20:00] VITALS: BP 136/63; PULSE 80; RESP 20; TEMP 37.8; O2SAT 95
[2020-03-03 20:33] LABS: Glucose, Whole Blood 172 mg/dL (60-115)
[2020-03-03] MEDS: Acetaminophen 325 MG TABLET 650 MG PO (21:39)
[2020-03-03 23:17] VITALS: BP 125/53; PULSE 69; RESP 19; TEMP 36; O2SAT 96
[2020-03-04 03:21] VITALS: BP 112/57; PULSE 74; RESP 19; TEMP 36.7; O2SAT 95
[2020-03-04] MEDS: metroNIDAZOLE/NS 500 MG/100 ML PIGGYBACK 100 MG IV ×3 (04:27→20:48)
[2020-03-04] MEDS: Omeprazole 20 MG CAPSULE.DR PO ×2 (05:31→17:10)
[2020-03-04] MEDS: 0.9 % Sodium Chloride 1,000 ML 100 ML IVCONT ×3 (06:02→16:00)
[2020-03-04 06:42] LABS: Hematocrit 30.1 % (37-47); Hemoglobin 10.3 g/dl (12.0-16.0); Mean Corpuscular HGB Conc 34.2 g/dl (31.0-35.0); Mean Corpuscular Hemoglobin 30.7 pg (27.0-33.0); Mean Corpuscular Volume 89.6 fL (80-98); Mean Platelet Volume 10.1 fL (9.4-12.3); Platelet Count 109 X10*3/uL (160-400); Red Blood Count 3.36 X10*6/uL (4.20-5.50); Red Cell Distribution Width 11.8 % (11.0-16.0)
[2020-03-04 07:19] LABS: Glucose, Whole Blood 169 mg/dL (60-115)
[2020-03-04 07:34] VITALS: BP 143/71; PULSE 78; RESP 18; TEMP 36.8; O2SAT 95
[2020-03-04 08:03] LABS: Anion Gap 13 (12-20); Blood Urea Nitrogen 9 mg/dL (9-16); Calcium 7.6 mg/dL (8.4-10.2); Carbon Dioxide 25 mmol/L (22-29); Chloride 101 mmol/L (96-108); Creatinine Clr Calc Pharmacy 75.5; Estimated Glomerular Filt Rate > 60; Glucose Random 208 mg/dL (60-115); Potassium 2.7 mmol/l (3.3-5.1); Sodium 136 mmol/L (135-145)
[2020-03-04] MEDS: Insulin Lispro 100 UNIT/ML 3 ML VIAL SUBCUT ×4 (08:14→20:51)
[2020-03-04] MEDS: Heparin Sodium,Porcine 5,000 UNIT/ML VIAL 5000 UNIT SUBCUT ×2 (08:15→20:48)
--- NOTE | 2020-03-04 08:30 | MHC.CM.PN ---
dc plan is home no svcs at this time. cm to cont. to follow.
[2020-03-04 08:56] LABS: Magnesium 1.8 mg/dL (1.6-2.6)
[2020-03-04] MEDS: Potassium Chloride ER 20 MEQ TAB.ER.PRT PO ×2 (10:29→20:47)
[2020-03-04] MEDS: Potassium Chloride/H20 10 MEQ/100 ML PIGGYBACK 100 MEQ IV ×4 (10:30→13:44)
[2020-03-04 11:11] LABS: Glucose, Whole Blood 252 mg/dL (60-115)
[2020-03-04 11:21] VITALS: BP 150/75; PULSE 78; RESP 18; TEMP 36.4; O2SAT 97
[2020-03-04 15:57] VITALS: BP 141/68; PULSE 85; RESP 18; TEMP 36.4; O2SAT 98
[2020-03-04 16:27] LABS: Glucose, Whole Blood 196 mg/dL (60-115)
--- NOTE | 2020-03-04 17:10 | P.PNIM_ITS ---
Subjective Subjective Date of Service: 03/04/20 Interval History: Diverticulitis Review of Systems Still has abdominal pain , stool frequency improving Physical Exam Vital Signs: Vital Signs: Vital Signs Temp Pulse Resp BP Pulse Ox 03/04/20 15:57 97.6 F 85 18 141/68 H 98 03/04/20 11:21 97.6 F 78 18 150/75 H 97 03/04/20 07:34 98.2 F 78 18 143/71 H 95 03/04/20 03:21 98.0 F 74 19 112/57 L 95 03/03/20 23:17 96.8 F 69 19 125/53 L 96 03/03/20 20:00 100.0 F 80 20 136/63 95 Body Mass Index 24.0 Physical exam: Cvs: rrr, [id number] , no murmur res: clear to auscultation ,no rhonchii or wheezing abd: no rebound or guarding ,still has discomfort inleft lower abd, bs present. ext pulses present , no cyanosis neuro: axo3 , nonfocal. Objective Data Current Medications Generic Name Dose Route Start Last Admin Trade Name Freq PRN Reason Stop Dose Admin Acetaminophen 650 mg 03/01/20 21:17 03/03/20 21:39 Acetaminophen 325 Mg Tablet PO 650 mg Q6H PRN Administration Pain, Mild (Pain Scale 1-3) Heparin Sodium (Porcine) 5,000 unit 03/01/20 21:17 03/04/20 08:15 Heparin Sodium,Porcine 5,000 Unit/Ml Vial SUBCUT 5,000 unit Q12H KHRIS Administration Sodium Chloride 1,000 mls @ 100 mls/hr 03/01/20 21:17 03/04/20 16:00 Ns IVCONT 100 mls/hr .Q10H KHRIS Administration Ceftriaxone Sodium 1 gm/ 50 mls @ 100 mls/hr 03/01/20 17:00 03/03/20 17:33 Sodium Chloride IV Infused Q24H KHRIS Infusion Metronidazole 500 mg in 100 mls @ 100 mls/hr 03/02/20 04:00 03/04/20 14:46 Flagyl IV 100 mls/hr Q8H KHRIS Administration Insulin Human Lispro 0 unit 03/02/20 07:30 03/04/20 11:39 Insulin Lispro 100 Unit/Ml 3 Ml Vial SUBCUT 6 unit QIDACHS K[facility]IS Administration Protocol Omeprazole 20 mg 03/03/20 06:30 03/04/20 05:31 Omeprazole 20 Mg Capsule. PO 20 mg BID@0630,9900 [facility] Administration Ondansetron HCl 4 mg 03/01/20 21:17 03/02/20 19:23 Ondansetron Hcl 4 Mg/2 Ml Vial IVPUSH 4 mg Q8H PRN Administration Nausea and Vomiting Ondansetron HCl 4 mg 03/03/20 10:16 Ondansetron Hcl 4 Mg/2 Ml Vial IVPUSH Q8H PRN Nausea Potassium Chloride 20 meq 03/04/20 09:00 03/04/20 10:29 Potassium Chloride Er 20 Meq Tab.Er.Prt PO 20 meq BID KHRIS Administration Sodium Chloride 3 ml 03/02/20 00:00 03/04/20 08:16 0.9 % Sodium Chloride Flush 3 Ml Syringe IVFLUSH Not Given QSHIFT [facility] Labs CBC & Chem 7: 03/04/20 06:09 03/04/20 06:09 Microbiology Microbiology Results: Microbiology 03/01/20 16:53 Blood - Venous Blood Culture - Final Escherichia coli 03/01/20 16:18 Blood - Venous Blood Culture - Final Escherichia coli 03/01/20 17:00 Urine clean catch - Clean Catch Midstream Urine Culture - Final Assessment and Plan (1) Diverticulitis: Status: Acute (2) UTI (urinary tract infection): Status: Acute (3) Diabetes: Status: Acute Assessment and Plan: 64-year-old woman admitted with acute diverticulitis and urinary tract inf ection. She has no history of diverticulitis in the past. She reports that she only has a history of diabetes. 1.Acute diverticulitis. still complaining of abdominal pain continue Rocephin and Flagyl continue IV fluid continue clear liquids stool studies , advance diet to full liq GI saw the patient: Recommended to continue IV antibiotic, add omeprazole for heartburn, Outpatient need schedule for an EGD and Colonoscopy as an outpatient in 5-6 weeks (after diverticulitis resolves) 2.UTI. Continue Rocephin, Urine culture-E coli, blood culture 1/2 is E coli also id eval . 3.Diabetes mellitus. continue Sliding scale monitor blood glucose DVT prophylaxis with heparin
[2020-03-04] MEDS: cefTRIAXone sodium 1 GM in 0.9 % Sodium Chloride 50 ML IV (17:23)
[2020-03-04 17:44] LABS: OBS Int Ctl Valid YES; OBS1 NEG (NEG)
[2020-03-04 18:40] LABS: Leukocytes Stool Qualitative NEGATIVE (NEGATIVE)
[2020-03-04 19:26] VITALS: BP 128/64; PULSE 76; RESP 18; TEMP 36.8; O2SAT 96
[2020-03-04 20:51] LABS: Glucose, Whole Blood 211 mg/dL (60-115)
[2020-03-05] VITALS (7 sets, daily range): BP systolic 126–148; BP diastolic 63–70; PULSE 79–85; RESP 18–20; TEMP 36.6–37.5; O2SAT 94–97
[2020-03-05] MEDS: metroNIDAZOLE/NS 500 MG/100 ML PIGGYBACK 100 MG IV ×3 (04:03→21:23)
[2020-03-05] MEDS: Omeprazole 20 MG CAPSULE.DR PO ×2 (05:48→16:45)
[2020-03-05 06:55] LABS: Anion Gap 13 (12-20); Blood Urea Nitrogen 6 mg/dL (9-16); Calcium 7.6 mg/dL (8.4-10.2); Carbon Dioxide 26 mmol/L (22-29); Chloride 102 mmol/L (96-108); Creatinine Clr Calc Pharmacy 84.6; Estimated Glomerular Filt Rate > 60; Glucose Random 193 mg/dL (60-115); Potassium 3.3 mmol/l (3.3-5.1); Sodium 138 mmol/L (135-145)
[2020-03-05 08:24] LABS: Glucose, Whole Blood 172 mg/dL (60-115)
[2020-03-05] MEDS: Potassium Chloride ER 20 MEQ TAB.ER.PRT PO ×2 (09:04→21:23)
[2020-03-05] MEDS: Insulin Lispro 100 UNIT/ML 3 ML VIAL SUBCUT ×4 (09:04→21:24)
[2020-03-05] MEDS: Heparin Sodium,Porcine 5,000 UNIT/ML VIAL 5000 UNIT SUBCUT ×2 (09:04→21:23)
[2020-03-05] MEDS: 0.9 % Sodium Chloride Flush 3 ML SYRINGE IVFLUSH ×3 (09:05→21:24)
--- NOTE | 2020-03-05 14:05 | PM.DS ---
DS: Providers Provider Date of admission: 03/01/20 20:01 Primary care physician: None Physician Consults: 03/01/20 21:17 Consult to Gastroenterology Routine Consulting Provider: Master Fields Reason for consultation: acute diverticulitis Has provider been notified: No 03/04/20 17:14 Consult to Infectious Diseases Routine Consulting Provider: Luisana Chavez Reason for consultation: UTI/BACTEREMIA Has provider been notified: No DS: Diagnosis Discharge Diagnosis (1) Diverticulitis: Status: Acute Problem details: Most likely diverticultis rather than UTI but hematuria concerning (2) UTI (urinary tract infection): Status: Acute (3) Diabetes: Status: Acute DS: Summary Hospital Course Hospital Course: Date of service and discharge: 03/06/20. 64-year-old woman admitted with acute diverticulitis and urinary tract infection. She has no history of diverticulitis in the past. She reports that she only has a history of diabetes. 1.Acute diverticulitis. Patient was started on ceftriaxone and Flagyl -abdominal pain and diarrhea improved, Going home with Levaquin and Flagyl Seen by GI: Outpatient need schedule for an EGD and Colonoscopy as an outpatient in 5-6 weeks (after diverticulitis resolves): fu with Dr Master Fields. 2.UTI. Initially was patient started on Rocephin and subsequently her blood culture came back E coli sensitive to levofloxacin, discussed the case with ID Dr. Chavez and subsequently patient was flu switched to p.o. Levaquin upon discharge. In addition patient was seen by Urology : Recommended outpatient workup, patient will follow-up with Dr. smith outpatient, patient was given phone number of Dr. smith is clinic. Above management discussed with the patient in detail length she understand and in agreement with the above plan, time spent 50 minutes and 50% time spent on counseling. Significant findings: As above. Procedures performed: None. Treatment and response: As above. Complications: None. Time Spent with Patient Time attestation: Total time spent providing and/or coordinating discharge services: Physical Exam Vital Signs: Vital Signs: Vital Signs Temp Pulse Resp BP Pulse Ox 03/05/20 11:38 97.9 F 83 18 145/70 H 96 03/05/20 07:22 98.4 F 81 18 148/68 H 94 03/05/20 04:01 98.7 F 85 18 140/68 H 97 03/05/20 00:00 98.8 F 80 18 144/65 H 94 03/04/20 19:26 98.3 F 76 18 128/64 96 03/04/20 15:57 97.6 F 85 18 141/68 H 98 Body Mass Index 24.0 Physical exam: Cvs: rrr, [id number] , no murmur res: clear to auscultation ,no rhonchii or wheezing abd: no rebound or guarding ,nt, bs present. ext pulses present , no cyanosis neuro: axo3 , nonfocal. DS: Data Data Completed and Pending Labs on day of discharge: Labs from last 24 hours 03/05/20 03/05/20 03/04/20 07:21 05:38 20:42 Sodium 138 Potassium 3.3 D Chloride 102 Carbon Dioxide 26 Anion Gap 13 BUN 6 L Creatinine 0.58 Estim Creat Clear Calc 84.6 Estimated GFR > 60 POC Glucose 172 H 211 H Random Glucose 193 H Calcium 7.6 L Stool Occult Blood Stool Leukocytes, Qual 03/04/20 03/04/20 03/04/20 16:20 14:45 14:45 Sodium Potassium Chloride Carbon Dioxide Anion Gap BUN Creatinine Estim Creat Clear Calc Estimated GFR POC Glucose 196 H Random Glucose Calcium Stool Occult Blood NEG Stool Leukocytes, Qual NEGATIVE Preliminary micro results at discharge 03/04/20 14:45 Stool Culture - Preliminary Stool Culture in progress. Discharge Plan Discharge Patient Disposition: Home, Self-Care Referrals: Physician,None [Primary Care Provider] - Discharge Medications: New omeprazole 20 mg Capsule,Delayed Release(Dr/Ec) 20 mg PO DAILY Qty: 30 RF: 0 levofloxacin 500 mg tablet 500 mg PO DAILY Qty: 13 RF: 0 metronidazole [Flagyl] 500 mg tablet 500 mg PO BID Qty: 10 RF: 0 potassium citrate 10 mEq (1,080 mg) tablet extended release 10 meq PO DAILY Qty: 10 RF: 0 Discharge Orders: Discharge Order (Routine); Ordered 03/05/20 Ordered By: Kelechi Longoria Diet: diabetic diet Activity on Discharge: As tolerated Visit Report Forms: Patient Portal Discharge page Care Plan Goals: Patient was started on IV antibiotic for abdominal:: Infection seems improving, will switch her to p.o. levaquin/flagyl upon discharge, follow-up with PCP for further management and if continue to have symptom consider outpatient GI evaluation as per PCP. Diabetic: Her fingersticks are mostly in 170-200 range, monitor hemoglobin A1c with PCP and further management outpatient as per PCP. Currently her diet diabetes is diet controlled as per patient. she also has mild anemia and leukopenia//thrombocytopenia: Patient is to monitor CBC with PCP and further management as per PCP. Hypokalemia repleted and seems improved: Will add limited potassium supply, monitor renal function and electrolytes outpatient with PCP and further management according to PCP. Health Concerns: As above. Plan of Treatment: As above.
--- NOTE | 2020-03-05 14:27 | MHC.CM.PN ---
Patient will be discharged home today no services. Patient's will provide transportation.
[2020-03-05 16:24] LABS: Glucose, Whole Blood 218 mg/dL (60-115)
[2020-03-05] MEDS: cefTRIAXone sodium 1 GM in 0.9 % Sodium Chloride 50 ML IV (16:43)
[2020-03-05] MEDS: levoFLOXacin 500 MG TABLET PO (16:45)
--- NOTE | 2020-03-05 18:02 | HO.PM.IMPN ---
Subjective Subjective Date of Service: 03/05/20 Interval History: Patient abdominal discomfort seems improving, has bacteremia E coli, no fever Review of Systems Denies any abdominal pain or nausea vomiting or diarrhea Physical Exam Vital Signs: Vital Signs: Vital Signs Temp Pulse Resp BP Pulse Ox 03/05/20 15:14 98.9 F 80 18 133/63 97 03/05/20 11:38 97.9 F 83 18 145/70 H 96 03/05/20 07:22 98.4 F 81 18 148/68 H 94 03/05/20 04:01 98.7 F 85 18 140/68 H 97 03/05/20 00:00 98.8 F 80 18 144/65 H 94 03/04/20 19:26 98.3 F 76 18 128/64 96 Body Mass Index 24.0 Physical exam Cvs: rrr, [id number] , no murmur res: clear to auscultation ,no rhonchii or wheezing abd: no rebound or guarding ,nt, bs present. ext pulses present , no cyanosis neuro: axo3 , nonfocal. Objective Data Current Medications Generic Name Dose Route Start Last Admin Trade Name Freq PRN Reason Stop Dose Admin Acetaminophen 650 mg 03/01/20 21:17 03/03/20 21:39 Acetaminophen 325 Mg Tablet PO 650 mg Q6H PRN Administration Pain, Mild (Pain Scale 1-3) Heparin Sodium (Porcine) 5,000 unit 03/01/20 21:17 03/05/20 09:04 Heparin Sodium,Porcine 5,000 Unit/Ml Vial SUBCUT 5,000 unit Q12H KHRIS Administration Ceftriaxone Sodium 1 gm/ 50 mls @ 100 mls/hr 03/01/20 17:00 03/05/20 17:38 Sodium Chloride IV Infused Q24H KHRIS Infusion Metronidazole 500 mg in 100 mls @ 100 mls/hr 03/02/20 04:00 03/05/20 12:35 Flagyl IV Infused Q8H KHRIS Infusion Insulin Human Lispro 0 unit 03/02/20 07:30 03/05/20 16:44 Insulin Lispro 100 Unit/Ml 3 Ml Vial SUBCUT 4 unit QIDACHS KHRIS Administration Protocol Omeprazole 20 mg 03/03/20 06:30 03/05/20 16:45 Omeprazole 20 Mg Capsule. PO 20 mg BID@0630,1630 KHRIS Administration Ondansetron HCl 4 mg 03/01/20 21:17 03/02/20 19:23 Ondansetron Hcl 4 Mg/2 Ml Vial IVPUSH 4 mg Q8H PRN Administration Nausea and Vomiting Ondansetron HCl 4 mg 03/03/20 10:16 Ondansetron Hcl 4 Mg/2 Ml Vial IVPUSH Q8H PRN Nausea Potassium Chloride 20 meq 03/04/20 09:00 03/05/20 09:04 Potassium Chloride Er 20 Meq Tab.Er.Prt PO 20 meq BID KHRIS Administration Sodium Chloride 3 ml 03/02/20 00:00 03/05/20 16:44 0.9 % Sodium Chloride Flush 3 Ml Syringe IVFLUSH 3 ml QSHIFT KHRIS Administration Labs CBC & Chem 7: 03/04/20 06:09 03/05/20 05:38 Microbiology Microbiology Results: Microbiology 03/04/20 14:45 Stool Stool Culture - Preliminary Culture in progress. 03/01/20 16:53 Blood - Venous Blood Culture - Final Escherichia coli 03/01/20 16:18 Blood - Venous Blood Culture - Final Escherichia coli 03/01/20 17:00 Urine clean catch - Clean Catch Midstream Urine Culture - Final Assessment and Plan (1) Diverticulitis: Problem details: Most likely diverticultis rather than UTI but hematuria concerning Status: Acute (2) UTI (urinary tract infection): Status: Acute (3) Diabetes: Status: Acute Assessment and Plan: 64-year-old woman admitted with acute diverticulitis and urinary tract infection. She has no history of diverticulitis in the past. She reports that she only has a history of diabetes. 1.Acute diverticulitis. Patient abdominal pain improving Currently on IV ceftriaxone and Flagyl Blood culture growing E coli which are sensitive to cefazolin Id evaluation-receomed urology eval due to uti , question of hematuria GI saw the patient: Recommended to continue IV antibiotic, add omeprazole for heartburn, Outpatient need schedule for an EGD and Colonoscopy as an outpatient in 5-6 weeks (after diverticulitis resolves) 2.UTI. Continue Rocephin, Urine culture-E coli, blood culture 1/2 is E coli also id eval . 3.Diabetes mellitus. continue Sliding scale monitor blood glucose DVT prophylaxis with heparin
--- NOTE | 2020-03-05 18:38 | PC.NURSE ---
Discharge on hold per Dr Longoria. pending dr Chavez consult.
[2020-03-05 21:20] LABS: Glucose, Whole Blood 211 mg/dL (60-115)
[2020-03-06] MEDS: metroNIDAZOLE/NS 500 MG/100 ML PIGGYBACK 100 MG IV ×2 (03:52→12:19)
[2020-03-06 04:00] VITALS: BP 140/65; PULSE 78; RESP 20; TEMP 37.2; O2SAT 96
[2020-03-06] MEDS: Omeprazole 20 MG CAPSULE.DR PO ×2 (07:37→17:40)
[2020-03-06] MEDS: 0.9 % Sodium Chloride Flush 3 ML SYRINGE IVFLUSH ×2 (07:37→17:40)
[2020-03-06 08:00] VITALS: BP 155/70; PULSE 76; RESP 20; TEMP 36.9; O2SAT 98
[2020-03-06 08:27] LABS: Glucose, Whole Blood 174 mg/dL (60-115)
--- NOTE | 2020-03-06 08:27 | MHC.CM.PN ---
Patient will be discharged home today no services. Family will provide transportation.
[2020-03-06] MEDS: Heparin Sodium,Porcine 5,000 UNIT/ML VIAL 5000 UNIT SUBCUT (09:08)
[2020-03-06] MEDS: Insulin Lispro 100 UNIT/ML 3 ML VIAL SUBCUT ×3 (09:09→17:40)
[2020-03-06] MEDS: Potassium Chloride ER 20 MEQ TAB.ER.PRT PO (09:09)
[2020-03-06 11:57] LABS: Glucose, Whole Blood 233 mg/dL (60-115)
[2020-03-06 12:00] VITALS: BP 131/62; PULSE 93; RESP 20; TEMP 37.1; O2SAT 97
--- NOTE | 2020-03-06 12:46 | MHC.CM.PN ---
Patients discharge placed on hold r/t positive blood cultures. Patient's discharge plan was home no services. Patient might need home IV ABT therapy. Will continue to follow for follow up blood cultures. CM will continue to follow patient for discharge needs.
[2020-03-06 15:21] VITALS: BP 171/80; PULSE 82; RESP 16; TEMP 36.9; O2SAT 96
[2020-03-06 16:48] LABS: Glucose, Whole Blood 234 mg/dL (60-115)
--- NOTE | 2020-03-06 16:49 | W.PM.IDCN ---
History of Present Illness Data of Consult Service Date: 03/06/20 Requesting physician: Kelechi Longoria Primary Care Provider: None Physician HPI Reason for consult: bacteremia,E coli She has 6/10 abdominal pain for 2 days radiating from flank to back Review of Systems Constitutional: Constitutional: Denies headache(s) ENT: Reports Normal hearing present, Denies dizziness and Denies headache(s) Neurologic: Reports Normal hearing present, Denies Abnormal speech present, Denies dizziness, Denies headache(s) and Denies seizure-like activity PMFSH Past Medical History Medical History Diabetes History of cellulitis Functional capacity: independent ambulation Family History Family History Father Pancreatic cancer Mother NHL (non-Hodgkin's lymphoma) Surgical History Surgical History H/O tubal ligation Hx of tonsillectomy S/P cholecystectomy (~1988) S/P right knee arthroscopy (~2002) Social History Social History Household Members: Spouse and Children Housing: House Smoking Status: Never smoker Second Hand Smoke Exposure: No service: No Current occupational status: unemployed and previously employed 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 Allergy/AdvReac Type Severity Reaction Status Date / Time demerol Allergy Unknown swelling Uncoded 12/25/18 00:00 From DEMEROL Allergy Unknown UNKNOWN Uncoded 01/23/20 16:15 Physical Exam Vital Signs: Vital Signs: Vital Signs Temp Pulse Resp BP Pulse Ox 03/06/20 15:21 98.4 F 82 16 171/80 H 96 03/06/20 12:00 98.7 F 93 20 131/62 97 03/06/20 08:00 98.5 F 76 20 155/70 H 98 03/06/20 04:00 98.9 F 78 20 140/65 H 96 03/05/20 23:19 99.5 F 83 20 126/63 95 03/05/20 20:00 98.6 F 79 18 139/63 97 Body Mass Index 24.0 Const: General: cooperative Eyes: General: appearance normal, both eyes and all related structures Resp: Effort & Inspection: normal respiratory effort Cardio: Rate: regular rate Rhythm: regular rhythm GI: Palpation (GI): Tenderness to palpation present (GI) (LLQ) Neuro: Cranial nerves: Yes Normal hearing present Speech: No Abnormal speech present Assessment and Plan (1) Diverticulitis: Problem details: Most likely diverticultis rather than UTI but hematuria concerning Status: Acute Continue antibiotic Ceftin finish 14 d if sensitive F/U colonoscopy evaluate for possible fistula with Urology (2) Diabetes: Status: Acute Results Labs CBC & Chem 7: 03/04/20 06:09 03/05/20 05:38 Microbiology Microbiology Results: Microbiology 03/04/20 14:45 Stool Stool Culture - Preliminary Culture in progress. 03/01/20 16:53 Blood - Venous Blood Culture - Final Escherichia coli 03/01/20 16:18 Blood - Venous Blood Culture - Final Escherichia coli 03/01/20 17:00 Urine clean catch - Clean Catch Midstream Urine Culture - Final
--- NOTE | 2020-03-06 17:10 | PM.UROCN ---
History of Present Illness Consult details Narrative: 64-year-old woman presenting to the ER with complaints of abdominal pain. She reports she has had abdominal pain for the last 4 days with nausea, vomiting but denies diarrhea. She reported that she has felt unwell with poor appetite and developed fever and chills at home. She denied any recent travel or improperly cooked foods or any history of IBD. Abdominal CT is showing acute diverticulitis. She is not noted to have elevated white blood cell count , she had a low-grade temperature of a 100.0 degrees. Urinalysis was positive. - admit for diverticulitis - UC negative - on history no UTI or pneumouria - can d/c home Review of Systems Constitutional: Constitutional: Denies headache(s) ENT: Reports Normal hearing present, Denies dizziness and Denies headache(s) Neurologic: Reports Normal hearing present, Denies Abnormal speech present, Denies dizziness, Denies headache(s) and Denies seizure-like activity PMFSH Past Medical History Medical History Diabetes History of cellulitis Functional capacity: independent ambulation Family History Family History Father Pancreatic cancer Mother NHL (non-Hodgkin's lymphoma) Surgical History Surgical History H/O tubal ligation Hx of tonsillectomy S/P cholecystectomy (~1988) S/P right knee arthroscopy (~2002) Social History Social History Household Members: Spouse and Children Housing: House Do you presently have visiting nurse or other home services: No Smoking Status: Never smoker Smoked in Last 30 Days: No Second Hand Smoke Exposure: No Use of substances other than those prescribed or required for medical reasons: No Currently Displaying Signs/Symptoms of Drug Intoxication Withdrawal: No Have you been hit, kicked, punched, or otherwise hurt by someone within the past year? 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 Allergy/AdvReac Type Severity Reaction Status Date / Time demerol Allergy Unknown swelling Uncoded 12/25/18 00:00 From DEMEROL Allergy Unknown UNKNOWN Uncoded 01/23/20 16:15 Physical Exam Vital Signs: Vital Signs: Vital Signs Temp Pulse Resp BP Pulse Ox 03/06/20 15:21 98.4 F 82 16 171/80 H 96 03/06/20 12:00 98.7 F 93 20 131/62 97 03/06/20 08:00 98.5 F 76 20 155/70 H 98 03/06/20 04:00 98.9 F 78 20 140/65 H 96 03/05/20 23:19 99.5 F 83 20 126/63 95 03/05/20 20:00 98.6 F 79 18 139/63 97 Body Mass Index 24.0 Const: General: cooperative, healthy appearing, comfortable and no acute distress Nutritional Appearance: average body habitus Orientation/consciousness: oriented to person, oriented to place and oriented to time Eyes: General: appearance normal, both eyes and all related structures Chest: Chest palpation & inspection: normal inspection of the chest Resp: Effort & Inspection: normal respiratory effort Cardio: Rate: regular rate GI: Inspection: Yes normal to inspection Skin: Hair: normal Neuro: General: oriented to person, oriented to place and oriented to time Cranial nerves: Yes Normal hearing present Speech: No Abnormal speech present Extrem: General: Yes normal to inspection Results Labs Result diagrams: 03/04/20 06:09 03/05/20 05:38 Labs: Abnormal lab results 03/05/20 03/06/20 03/06/20 Range/Units 21:16 07:36 11:34 POC Glucose 211 H 174 H 233 H (60-115) mg/dL 03/06/20 Range/Units 16:42 POC Glucose 234 H (60-115) mg/dL Urine 03/01/20 Range/Units 16:18 Urine Color YELLOW Urine Appearance CLOUDY Urine pH 5.5 (5.0-8.0) Ur Specific [place] >= 1.030 H (1.005-1.025) Urine Protein 2+ H (NEG-TRACE) MG/DL Urine Glucose (UA) 500 H (NEG) MG/DL All other labs normal. Assessment and Plan (1) UTI (urinary tract infection): Status: Acute Fluids manage constipation
[2020-03-06] MEDS: levoFLOXacin 500 MG TABLET PO (17:41)
== END 2020-03-06 17:52 | disposition home or self-care (01) | DRG 392 ==
LOC: HO.ED 21:06 → HO.IMC 21:10
PROVIDERS: Internal Medicine; Nurse Practitioner Acute Care; Nurse Practitioner Primary Care; Admitting Provider Internal Medicine; Emergency Provider Emergency Medicine; Visit Provider Internal Medicine
DX: K57.92 Diverticulitis of intestine, part unspecified, without perforation or abscess without bleeding (principal); R78.81 Bacteremia; E11.9 Type 2 diabetes mellitus without complications; Z20.828 Contact with and (suspected) exposure to other viral communicable diseases; R31.9 Hematuria, unspecified; B96.20 Unspecified Escherichia coli [E. coli] as the cause of diseases classified elsewhere; Z88.5 Allergy status to narcotic agent; Z79.899 Other long term (current) drug therapy
CPT/HCPCS: 36415; 74176; 80048; 80053; 81001; 82272; 82947; 83605; 83735; 85007; 85025; 85027; 87040; 87045; 87046; 87077; 87086; 87186; 87635; 89055; 96365; 96367; 96375; 99285; J0696; J2270; J2405

== ENCOUNTER 2020-04-24 10:35 | Day surgery (SDC) | payer OTHER, SELFPAY ==
[2020-04-20 10:54] VITALS: BMI 24.0
--- NOTE | 2020-04-23 08:51 | HO.ANESPROP2 ---
Documented by User: Isha Carbajal 04/23/20 08:57 HPI - Anesthesia Eval Consult details Narrative: 64yo [place] for [place] Endoscopy [place] [facility] [place] with divertic PMFSH Past Medical History Medical History Diabetes History of cellulitis Hx of diverticulitis of colon Lab test negative for COVID-19 virus Family History Family History Father Pancreatic cancer Mother NHL (non-Hodgkin's lymphoma) Surgical History Surgical History H/O tubal ligation Hx of tonsillectomy S/P cholecystectomy (~1988) S/P right knee arthroscopy (~2002) Social History Social History Household Members: Spouse and Children Housing: House Smoking Status: Never smoker Second Hand Smoke Exposure: No Use of substances other than those prescribed or required for medical reasons: No Have you been hit, kicked, punched, or otherwise hurt by someone within the past year? 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 Allergy/AdvReac Type Severity Reaction Status Date / Time meperidine [From Demerol] Allergy Severe Swelling Verified 04/20/20 10:58 Home Medications Medication Instructions Recorded Confirmed Type No Known Home Meds 04/20/20 04/20/20 History Exam Exam Date and Time: April 23, 2020 0851 Height,Weight and Vital Signs: Height 5 ft 4 in Weight 63.503 kg Pertinent Lab Results Pertinent Lab Results: Laboratory Tests 03/04/20 03/05/20 06:09 05:38 WBC 3.0 L Hgb 10.3 L Hct 30.1 L Plt Count 109 L D Sodium 138 Potassium 3.3 D Chloride 102 Carbon Dioxide 26 BUN 6 L Creatinine 0.58 Plts chronically low. ? etiology Assessment and Plan Assessment Anesthesia Assessment: Chart Reviewed Documented by User: Za Krause 04/24/20 12:24 PMFSH Past Medical History Medical History Diabetes History of cellulitis Hx of diverticulitis of colon Lab test negative for COVID-19 virus Family History Family History Father Pancreatic cancer Mother NHL (non-Hodgkin's lymphoma) Surgical History Surgical History H/O tubal ligation Hx of tonsillectomy S/P cholecystectomy (~1988) S/P right knee arthroscopy (~2002) Social History Social History Household Members: Spouse and Children Housing: House Smoking Status: Never smoker Second Hand Smoke Exposure: No Use of substances other than those prescribed or required for medical reasons: No Have you been hit, kicked, punched, or otherwise hurt by someone within the past year? 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
[2020-04-24 11:41] VITALS: BP 146/68; PULSE 77; RESP 16; TEMP 36.9; O2SAT 100
[2020-04-24 11:43] LABS: Glucose, Whole Blood 190 mg/dL (60-115)
--- NOTE | 2020-04-24 12:11 | W.PM.OPN ---
Operative Note Operative Note Date of Service: 04/24/20 Narrative: Pre-op diagnosis: COLON CANCER SCREENING, RECENT EPISODE OF DIVERTICULITIS, HEARTBURN AND ODYNOPHAGIA Post-op diagnosis: other (Esophagitis, gastritis, colon polyp, diverticulosis) Procedure: FLEXIBLE TRANSORAL UPPER GASTROINTESTINAL ENDOSCOPY WITH BIOPSIES AND COLONOSCOPY TO CECUM WITH BIOPSIES UPPER ENDOSCOPY Consent: Indications for the procedure and potential complications of bleeding, perforation, reaction to medications and missed diagnosis were discussed with the patient and informed consent was obtained. Instrument: Olympus GIF H 190 mid size upper endoscope Monitoring: Vital signs and clinical assessment, continuous EKG monitoring, Pulse oximetry, Carbon Dioxide monitoring and blood pressure monitoring were done throughout the procedure. Procedure: The patient was placed in the left lateral decubitis position and pre-procedure medications were administered and a bite block was placed. The endoscope was inserted into the mouth and advanced under direct vision to the third part of duodenum. A careful inspection was made as the upper endoscope was withdrawn including a retroflexed examination of the proximal stomach; Findings and interventions are described below. Findings: Larynx: Normal Esophagus: Circular folds in the esophagus - biopsies obtained from proximal esophagus to check for EOE. GE junction at 36 cms with 1 cms focal area of erosions and ulcers at the GE junction.. Stomach: A 2 cms focal area of edematous folds with sub-mucosal hemorrhages in gastric body along lesser curvature - biopsies were obtained. Mild gastric erythema with antral erosions.. Biopsies were obtained. Grade 2 flap valve on retroflexed examination of the cardia. Duodenum: Normal bulb and descending duodenum Intervention: Biopsies as noted above COLONOSCOPY PROCEDURE NOTE Consent: Indications for the procedure and potential complications of bleeding, perforation, reaction to medications and missed diagnosis were discussed with the patient and informed consent was obtained. Instrument: Olympus PCF H 190 L variable stiffness pediatric colonoscope Monitoring: Vital signs and clinical assessment, intermittent blood pressure monitoring, continuous EKG monitoring, Pulse oximetry and Carbon Dioxide monitoring were done throughout the procedure. Colon withdrawl time was 15 minutes. Procedure: The patient was placed in the left lateral decubitis position and pre-procedure medications were administered. After a digital rectal examination of the ano-rectum, the video colonoscope was inserted into the rectum and advanced through the colon to the cecum. The colonoscope was slowly withdrawn in a retrograde panoramic fashion and the colon mucosa was carefully examined including a retroflexed view of the rectum. Findings and interventions are described below. Procedure Difficulty: LLQ pressure applied to intubate the transverse colon/cecum Findings: Terminal Ileum: Not evaluated Cecum: Normal Ascending Colon: Normal Transverse Colon: Normal Descending Colon: Moderate diverticulosis Sigmoid Colon: Moderate diverticulosis Rectum: A 4-5 mm sessile polyp removed with a cold biopsy Ano-rectum: Decreased anal sphincter tone Colon preparation: Good after some irrigation Impression and Post Procedure Diagnosis: Endoscopy Findings: ESOPHAGUS: Circular folds in the esophagus - biopsies obtained from proximal esophagus to check for EOE. GE junction at 36 cms with 1 cms focal area of erosions and ulcers at the GE junction.. STOMACH: A 2 cms focal area of edematous folds with submucosal hemorrhages in gastric body along lesser curvature - biopsies were obtained. Mild gastric erythema with antral erosions.. Biopsies were obtained. Colonoscopy Findings: One small polyp removed Moderate diverticulosis seen in the left colon Plan: Await pathology results Patient has an appointment on 05/14/20 in the GI Clinic with Master Fields M.D. Repeat Colonoscopy interval based on path results - in 5 years if polyp is adenomatous and 10 years if polyp is hyperplastic. Above findings were reviewed with the patient and GERD, colon polyps and diverticulosis handouts were given in the discharge area Surgeon: Master Fields MD Anesthesia: MAC (RU [place]) Estimated blood loss (mL): 0 Pathology: other (A. Gastric antrum, B. Gastric body, C. Proximal esophagus, D. Rt Colon, E. Left colon, F. rectal polyp) Condition: stable Disposition: PACU
--- NOTE | 2020-04-24 12:11 | MHC.SHP ---
Pre-Procedural Eval Section A The patient is an INPATIENT: No The History & Physical has been completed within 30 days and I have reviewed it.: No Section B Chief Complaint: gerd Details of Present Illness: screening, hx of diverticulitis, GERD, Odynphagia Relevant Family History (Specify if Yes): No Present Medications: see Short Stay Collaborative assessment Medical History: Significant History (Diabetes History of cellulitis) History of Previous Operations: Relevant previous surgery/procedure and date(s) (status post cholecystectomy) Allergies: Allergies Allergy/AdvReac Type Severity Reaction Status Date / Time meperidine [From Demerol] Allergy Severe Swelling Verified 04/20/20 10:58 Review of Systems Sugical H&P ROS: Negative: Constitution, Cardiovascular, Respiratory and Gastrointestinal Exam Surgical H&P Exam: Normal: Heart, Normal: Lungs, Normal: Extremities and Normal: Abdomen Plan Diagnosis/Plan: Unchanged I have reviewed the history and physical and performed a pertinent physical examination on my patient. No changes have occurred unless specified.
[2020-04-24 12:35] VITALS: BP 121/66; PULSE 71; RESP 14; O2SAT 100
[2020-04-24 13:20] VITALS: BP 102/52; PULSE 79; RESP 16; TEMP 35.9; O2SAT 99
[2020-04-24 13:35] VITALS: BP 121/66; PULSE 71; RESP 14; O2SAT 100
[2020-04-24 13:50] VITALS: BP 136/67; PULSE 78; RESP 14; TEMP 35.9; O2SAT 100
--- NOTE | 2020-04-24 14:29 | HO.POSTANES ---
Post Anesthesia Evaluation Post Anesthesia Evaluation Vital Signs: Vital Signs Temp Pulse Resp BP Pulse Ox 04/24/20 13:50 96.7 F L 78 14 136/67 100 04/24/20 13:35 71 14 121/66 100 04/24/20 13:20 96.6 F L 79 16 102/52 L 99 04/24/20 12:35 71 14 121/66 100 04/24/20 11:41 98.4 F 77 16 146/68 H 100 Anesthesia: Monitored Mental Status: Awake Pain Control: Satisfactory Nausea/Vomiting: None Hydration: Adequate Anesthesia-Related Issues: No Anes. Related Issues
== END 2020-04-24 14:46 | disposition home or self-care (01) ==
PROVIDERS: Visit Provider Internal Medicine Gastroenterology
PROC: (CPT 45380; principal; 2020-04-24 12:00)
DX: Z12.11 Encounter for screening for malignant neoplasm of colon (principal); K63.5 Polyp of colon; K57.30 Diverticulosis of large intestine without perforation or abscess without bleeding; R13.10 Dysphagia, unspecified; K21.00 Gastro-esophageal reflux disease with esophagitis, without bleeding; K29.70 Gastritis, unspecified, without bleeding
CPT/HCPCS: 45380; 43239; 82947; 88305; 88341; 88342; 88344; 88360

== ENCOUNTER → 2020-05-11 07:36 | Outpatient (BNV) | payer MEDICARE, OTHER, SELFPAY | PROVIDERS: PCP Internal Medicine; Referring Provider Internal Medicine Gastroenterology; Visit Provider Internal Medicine Medical Oncology | DX: C16.9 Malignant neoplasm of stomach, unspecified (principal) | CPT/HCPCS: 99202; 99204; 99212; 99213; 99214 ==

== ENCOUNTER 2020-05-11 09:27 | Outpatient (REF) | payer OTHER, SELFPAY ==
--- NOTE | 2020-05-11 09:33 | MM_ITS ---
EXAMINATION: MM SCREENING DIGITAL BREAST TOMOSYNTHESIS, BILATERAL CLINICAL INFORMATION: Screening. Asymptomatic. Age 64. Prior mammography performed over 30 [place] ago [place] The lifetime risk of breast cancer based on the Tyrer-Cuzick Model is 6%. COMPARISON: None (current study represents new baseline exam). TECHNIQUE: Digital breast tomosynthesis is performed in both the craniocaudal and mediolateral oblique views along with computer-aided detection (CAD). Synthesized 2D images are generated from the tomosynthesis. FINDINGS: The breasts are heterogeneously dense, which may obscure small masses (ACR BI-RADS breast composition Category c). There are scattered bilateral benign-appearing fibroglandular parenchymal asymmetries. There is no significant mass or architectural abnormality. No abnormal calcifications. This exam serves as new baseline. MM/MM tomosynthesis screening BI IMPRESSION: No mammographic evidence of malignancy. ASSESSMENT: BI-RADS 2: Benign RECOMMENDATION: Routine annual mammography screening. This patient's information was entered into a reminder system with a target due date for their next mammogram.
== END 2020-05-11 09:28 | disposition home or self-care (01) ==
LOC: HO.MAMMO 09:27
PROVIDERS: Absent Provider Internal Medicine Gastroenterology; PCP Internal Medicine; Visit Provider Internal Medicine Medical Oncology
DX: Z12.31 Encounter for screening mammogram for malignant neoplasm of breast (principal)
CPT/HCPCS: 77063; 77067

== ENCOUNTER → 2020-05-14 15:22 | Outpatient (BNVA) | payer OTHER, SELFPAY | PROVIDERS: PCP Internal Medicine; Visit Provider Internal Medicine Gastroenterology | DX: Z76.89 Persons encountering health services in other specified circumstances (principal) ==

== ENCOUNTER 2020-05-19 08:36 | Outpatient (REF) | payer OTHER, SELFPAY ==
--- NOTE | 2020-05-19 07:47 | PE_ITS ---
EXAMINATION: Fluorine-18 FDG PET/CT Scan CLINICAL INDICATION: Initial treatment management. Stomach cancer, initial staging. PROCEDURE: 72 minutes following the intravenous administration of 18.3 mCi of fluorine 18 FDG, images from the base of the skull to the mid thighs were obtained using a combined PET/CT scanner with CT scan based attenuation correction. No intravenous contrast was administered. No oral contrast was administered. Transverse, coronal, sagittal, and volume reconstruction projections were obtained. The patient's blood glucose as determined by a finger stick, was 245 mg/dl immediately prior to injection. Total CT exam dose-length product 290.66 mGy-cm * These CT images were obtained using dose optimization techniques as appropriate, variously including the following: Automated exposure control * Adjustment of mA and/or kV according to patient size (this includes techniques or standardized protocols for targeted exams where dose is matched to indication/reason for exam; i.e. extremities or head) * Use of iterative reconstruction technique COMPARISON: No previous PET/CT scan is available for comparison. The diagnostic CT scan of the abdomen and pelvis, dated 03/01/2020, is available for comparison. FINDINGS: (Slice numbers described in this report are numbered superiorly to inferiorly with slice #1 in the head) NECK AND VISUALIZED HEAD: No foci of abnormal FDG activity are noted. The distribution of FDG activity is physiological. There is no cervical lymphadenopathy. THORAX: There are no foci of abnormal FDG activity. No pulmonary nodules are visualized. There is no pleural or pericardial fluid or pneumothorax. There is no mediastinal, supraclavicular, or axillary lymphadenopathy. ABDOMEN AND PELVIS: No foci of abnormal FDG activity are present in the abdomen or pelvis. There is mild FDG activity present throughout the gastrointestinal tract without a suspicious focal component. There is diverticulosis without evidence of diverticulitis. The hollow viscera are otherwise unremarkable. The liver and spleen are unremarkable. The gallbladder has been resected and multiple metallic surgical clips are present in the gallbladder bed. There is a poorly delineated 1.6 cm exophytic cyst anterolaterally in the upper pole of the left kidney with no associated abnormal FDG activity, unchanged from and better visualized on the 03/01/2020 CT scan. A nonobstructing 0.6 cm calculus is present in the upper pole of the right kidney. The kidneys are otherwise unremarkable. The adrenal glands and pancreas are unremarkable. The pelvic organs are unremarkable. There is no retroperitoneal, mesenteric, pelvic or inguinal lymphadenopathy. MUSCULOSKELETAL: No foci of abnormal FDG activity are present in the osseous structures. There are mild degenerative changes in the spine, predominantly in the mid and lower thoracic spine. No suspicious sclerotic or lytic lesions are visualized. VASCULAR: Vascular calcifications including coronary are noted. PET/PET CT fusion skull to thigh IMPRESSION: No foci of abnormal FDG activity are visualized. There are no abnormalities visualized suspicious for metastatic or other malignant lesions.
== END 2020-05-19 08:37 | disposition home or self-care (01) ==
LOC: HO.PET 08:36
PROVIDERS: Visit Provider Internal Medicine Medical Oncology
DX: Z13.89 Encounter for screening for other disorder (principal)

== ENCOUNTER 2020-07-13 08:45 | Day surgery (SDC) | payer OTHER, SELFPAY ==
[2020-07-13] VITALS (9 sets, daily range): BP systolic 117–143; BP diastolic 50–80; PULSE 64–75; RESP 18–20; TEMP 36.6; O2SAT 99–100; BMI 23.1
--- NOTE | ~2020-07-13 | IR_ITS ---
PROCEDURE: IR INSERTION OF TUNNEL CATHETER CLINICAL INFORMATION: Gastric cancer. Needs long-term chemotherapy. COMPARISON: CT PET exam 05/19/2020. TECHNIQUE: Following explaining ultrasound and fluoroscopy-guided placement of a tunneled catheter procedure, benefits and risks, a written consent was obtained. Patient was placed supine on angiography table and preliminary ultrasound imaging was obtained. An optimal site was selected along the right anterolateral neck and marked. All elements of maximal sterile barrier technique followed including use of cap, mask, sterile gown, sterile gloves, a sterile full body drape and hand hygiene. Also followed skin preparation with 2% chlorhexidine for cutaneous antisepsis, and sterile ultrasound preparation with sterile gel and probe cover when applicable. The marked site was infiltrated with 1% lidocaine. Under sterile ultrasound guidance, a single wall needle was advanced through the skin and the right jugular vein was punctured anterolaterally. After obtaining venous return, a thin guidewire was advanced and placed in the SVC and needle withdrawn. A 5 Tajik sheath was subsequently advanced over the guidewire. Approximately 1 gauze length away from the right anterior neck incision, 1% lidocaine was injected along the right anterior chest wall. A small skin incision was performed along the anterior chest wall. Subcutaneous blunt dissection was performed along the anterior chest wall through the incision and a pocket was created. A trial was performed to place the port chamber. 1% lidocaine was then inserted subcutaneously from the right anterior chest wall through the right neck incision. A blunt tunneler attached to a catheter was then inserted subcutaneously from the chest wall incision to the right neck incision and the tunneler and catheter were pulled out. The four-chamber was then secured into the pocket and sutured with 3-0 nonabsorbable nylon sutures. Initially the catheter was connected to the port chamber and secured tightly. The port chamber was flushed with saline to ensure patency. The catheter was sized. At the neck, the 5 Tajik dilator and wire were removed and a 0.35 J-wire was introduced under fluoroscopy guidance into the IVC and the dilator removed. A 7 Tajik dilator with sheath was then introduced over the guidewire. The guidewire and the dilator was removed and precut catheter was then advanced through the peel-away sheath. As the peel-away sheath was removed, the catheter was advanced. Finally the catheter was secured to the right anterior neck incision. Under fluoroscopy, a single image was obtained to document position of the catheter. The skin incision along the right anterior neck and the right anterior chest wall was secured with 3-0 absorbable sutures. Steri-Strips were placed at both incisions followed by sterile dressing. Patient tolerated the procedure extremely well. Conscious sedation with IV Versed and fentanyl was administered during the exam for 30 minutes. FINDINGS: On initial ultrasound imaging, there is widely patent right jugular vein. Ultrasound and fluoroscopy-guided placement of a 6.6 Tajik long right tunneled catheter/PORT. The tip of the catheter lies in the [id number] SVC. It is ready for use. IR/IR cvc insert tunnel w prt/fish filleter IMPRESSION: Successful ultrasound and fluoroscopy-guided placement of 21 cm long 6.6 Tajik catheter with its tip in the [id number] SVC. FLUOROSCOPY TIME: 0.3 minutes. IMAGES: 1 image. DOSE AREA PRODUCT: 38.
--- NOTE | ~2020-07-13 | IR_ITS ---
PROCEDURE: IR INSERTION OF TUNNEL CATHETER CLINICAL INFORMATION: Gastric cancer. Needs long-term chemotherapy. COMPARISON: CT PET exam 05/19/2020. TECHNIQUE: Following explaining ultrasound and fluoroscopy-guided placement of a tunneled catheter procedure, benefits and risks, a written consent was obtained. Patient was placed supine on angiography table and preliminary ultrasound imaging was obtained. An optimal site was selected along the right anterolateral neck and marked. All elements of maximal sterile barrier technique followed including use of cap, mask, sterile gown, sterile gloves, a sterile full body drape and hand hygiene. Also followed skin preparation with 2% chlorhexidine for cutaneous antisepsis, and sterile ultrasound preparation with sterile gel and probe cover when applicable. The marked site was infiltrated with 1% lidocaine. Under sterile ultrasound guidance, a single wall needle was advanced through the skin and the right jugular vein was punctured anterolaterally. After obtaining venous return, a thin guidewire was advanced and placed in the SVC and needle withdrawn. A 5 Montenegrin sheath was subsequently advanced over the guidewire. Approximately 1 gauze length away from the right anterior neck incision, 1% lidocaine was injected along the right anterior chest wall. A small skin incision was performed along the anterior chest wall. Subcutaneous blunt dissection was performed along the anterior chest wall through the incision and a pocket was created. A trial was performed to place the port chamber. 1% lidocaine was then inserted subcutaneously from the right anterior chest wall through the right neck incision. A blunt tunneler attached to a catheter was then inserted subcutaneously from the chest wall incision to the right neck incision and the tunneler and catheter were pulled out. The four-chamber was then secured into the pocket and sutured with 3-0 nonabsorbable nylon sutures. Initially the catheter was connected to the port chamber and secured tightly. The port chamber was flushed with saline to ensure patency. The catheter was sized. At the neck, the 5 Montenegrin dilator and wire were removed and a 0.35 J-wire was introduced under fluoroscopy guidance into the IVC and the dilator removed. A 7 Montenegrin dilator with sheath was then introduced over the guidewire. The guidewire and the dilator was removed and precut catheter was then advanced through the peel-away sheath. As the peel-away sheath was removed, the catheter was advanced. Finally the catheter was secured to the right anterior neck incision. Under fluoroscopy, a single image was obtained to document position of the catheter. The skin incision along the right anterior neck and the right anterior chest wall was secured with 3-0 absorbable sutures. Steri-Strips were placed at both incisions followed by sterile dressing. Patient tolerated the procedure extremely well. Conscious sedation with IV Versed and fentanyl was administered during the exam for 30 minutes. FINDINGS: On initial ultrasound imaging, there is widely patent right jugular vein. Ultrasound and fluoroscopy-guided placement of a 6.6 Montenegrin long right tunneled catheter/PORT. The tip of the catheter lies in the [id number] SVC. It is ready for use. IR/IR us guide venous access IMPRESSION: Successful ultrasound and fluoroscopy-guided placement of 21 cm long 6.6 Montenegrin catheter with its tip in the ify-es-[id number] SVC. FLUOROSCOPY TIME: 0.3 minutes. IMAGES: 1 image. DOSE AREA PRODUCT: 38.
[2020-07-13 09:09] LABS: Glucose, Whole Blood 92 mg/dL (60-115)
[2020-07-13 09:21] LABS: Prothrombin Time 12.1 SEC (10.8-13.0)
[2020-07-13 09:24] LABS: Partial Thromboplastin Time 33.8 SEC (24.1-38.0)
== END 2020-07-13 15:38 | disposition home or self-care (01) ==
PROVIDERS: Radiology Diagnostic Radiology; PCP Internal Medicine; Visit Provider Radiology Diagnostic Radiology
DX: C16.9 Malignant neoplasm of stomach, unspecified (principal); Z80.0 Family history of malignant neoplasm of digestive organs; Z90.49 Acquired absence of other specified parts of digestive tract; E11.65 Type 2 diabetes mellitus with hyperglycemia; Z79.4 Long term (current) use of insulin; Z80.7 Family history of other malignant neoplasms of lymphoid, hematopoietic and related tissues
CPT/HCPCS: 36415; 36561; 76937; 82947; 85610; 85730; 99152; 99153; C1769; C1788; J0690; J1642; J2250; J3010

== ENCOUNTER 2020-07-20 09:17 | Outpatient (REF) | payer OTHER, SELFPAY ==
[2020-07-20 09:53] LABS: MANUAL DIFF FLAG NO
[2020-07-20 09:55] LABS: Basophils Percent Auto 0.3 % (0-2); Eosinophils Absolute Auto 0.1 X10*3/uL (0.0-0.4); Eosinophils Percent Auto 2.5 % (0-4); Hemoglobin 11.9 g/dl (12.0-16.0); Lymphocytes Absolute Auto 1.3 X10*3/uL (1.2-4.9); Lymphocytes Percent Auto 39.1 % (20-40); Mean Corpuscular HGB Conc 33.1 g/dl (31.0-35.0); Mean Corpuscular Hemoglobin 30.6 pg (27.0-33.0); Mean Corpuscular Volume 92.5 fL (80-98); Mean Platelet Volume 10.7 fL (9.4-12.3); Monocytes Absolute Auto 0.2 X10*3/uL (0.1-1.2); Monocytes Percent Auto 6.8 % (2-11); Neutrophils Absolute Auto 1.7 X10*3/uL (2.0-8.3); Neutrophils Percent Auto 51.3 % (45-73); Platelet Count 159 X10*3/uL (160-400); Red Blood Count 3.89 X10*6/uL (4.20-5.50); Red Cell Distribution Width 12.6 % (11.0-16.0); White Blood Count 3.2 X10*3/uL (4.8-10.8)
[2020-07-20 10:29] LABS: Alanine Aminotransferase 12 U/L (0-31); Albumin Level 4.6 g/dL (3.5-5.0); Alkaline Phosphatase 76 U/L (39-117); Anion Gap 12 (12-20); Aspartate Amino Transferase 18 U/L (5-31); Bilirubin Total 0.3 mg/dL (0.0-1.0); Blood Urea Nitrogen 15 mg/dL (9-16); Calcium 9.9 mg/dL (8.4-10.2); Carbon Dioxide 31 mmol/L (22-29); Chloride 102 mmol/L (96-108); Cholesterol 172 mg/dL; Estimated Glomerular Filt Rate > 60; Glucose Random 119 mg/dL (60-115); HDL Cholesterol 63 mg/dL; LDL Cholesterol Calculated 99 mg/dl; Potassium 3.9 mmol/L (3.3-5.1); Sodium 141 mmol/L (135-145); Total Protein 7.1 g/dL (6.5-8.0); Triglycerides 51 mg/dL
[2020-07-20 10:38] LABS: Free T4 (Free Thyroxine) 0.93 ng/dL (0.71-1.85); Thyroid Stimulating Hormone 1.93 uIU/mL (0.32-4.0)
[2020-07-20 10:50] LABS: Creatinine Urine 65.78 mg/dL; Microalbum/Creatinine Ratio Ur 16.7 ug/mg cr
[2020-07-20 11:02] LABS: Folate > 20.0 ng/mL (> or = 4.0); Vitamin B12 281 pg/mL (200-900)
== END 2020-07-20 09:18 | disposition home or self-care (01) ==
LOC: HO.LAB 09:17
PROVIDERS: PCP Internal Medicine; Visit Provider Internal Medicine
DX: E11.65 Type 2 diabetes mellitus with hyperglycemia (principal); E78.00 Pure hypercholesterolemia, unspecified
CPT/HCPCS: 36415; 80053; 80061; 82043; 82306; 82607; 82746; 84439; 84443; 85025

== ENCOUNTER → 2020-08-31 11:27 | Outpatient (BNVA) | payer OTHER, SELFPAY | PROVIDERS: PCP Internal Medicine; Visit Provider Internal Medicine ==

== ENCOUNTER 2020-10-19 08:51 | Outpatient (REF) | payer OTHER, SELFPAY ==
--- NOTE | ~2020-10-19 | CT_ITS ---
EXAMINATION: CT CHEST, ABDOMEN AND PELVIS WITH CONTRAST CLINICAL INFORMATION: Gastric CA. Status post chemotherapy. Preop. COMPARISON: PET/CT 05/20/2020. CT abdomen and pelvic exam 03/01/2020. TECHNIQUE: 5 mm thin and reformatted 3 mm thin sagittal and coronal images of chest, abdomen and pelvis were obtained following IV 100 mL Omnipaque 350. DLP 389 mGy-cm. FINDINGS: Chest: The lungs are well-expanded and clear of acute pneumonic process. There are no pulmonary nodules, mass or consolidation. No atelectatic changes seen. The thyroid lobes are symmetrical and normal. The central trachea and the bronchi are widely patent. Heart size and the great vessels are normal caliber. No abnormal sized mediastinal lymph nodes or mass seen. The thyroid lobes are symmetrical and normal. A right central venous port with its tip in distal SVC is noted. There is no pericardial effusion. There is no pleural effusion, thickening or calcification. The axilla and chest wall appear unremarkable. Abdomen and Pelvis: The liver is homogeneous in density, normal size and normal contour. There is mild attenuation seen but no focal lesion seen. No intrahepatic ductal dilatation. The gallbladder has been surgically removed. The spleen, pancreas and bilateral adrenal glands are unremarkable. A prominent pancreatic duct measuring 4 mm noted. Both kidneys are normal size, shape. There is mild lobulation along the anterior cortex lower pole left kidney. No radiopaque renal calculi or hydronephrosis seen. There are bilateral extrarenal kidney pelvises. The abdominal aorta is of normal caliber with mild atherosclerotic calcification. No retroperitoneal lymph nodes or mass seen. No abnormal retroperitoneal lymph nodes or mass seen. There is a moderate sized hiatal hernia. The stomach is nondistended and appears unremarkable. Oral contrast opacified small bowel loops are normal caliber. There is a large amount of stool in the colon without any significant distention. The appendix is not visualized, however, there is no inflammatory process in the right lower quadrant. The abdominal aorta is of normal caliber. No retroperitoneal lymph nodes seen. The abdominal wall appears unremarkable. Imaging through the pelvis reveals a distended urinary bladder. The uterus is anteverted. There is no free fluid. Small shotty bilateral inguinal lymph nodes seen measuring 7 mm on the right and 9 mm on the left. Bone windows reveal no lytic or sclerotic process. CT/CT abdomen pelvis w con IMPRESSION: Unremarkable CT chest with no pulmonary nodule or mass. Right central venous port tip is in the distal SVC. Moderate sized hiatal hernia. There is a large stool in the colon suggestive of severe constipation. No abnormal sized abdominal lymph nodes seen. Distended urinary bladder.
[2020-10-19] MEDS: iohexoL 350 MG/ML 100 ML INFUS..BTL IV (11:58)
== END 2020-10-19 08:52 | disposition home or self-care (01) ==
LOC: HO.CT 08:51
PROVIDERS: PCP Internal Medicine; Visit Provider Internal Medicine Medical Oncology
DX: C16.9 Malignant neoplasm of stomach, unspecified (principal)
CPT/HCPCS: 71260; 74177; Q9967

== ENCOUNTER → 2020-11-05 14:41 | Outpatient (BNVA) | payer OTHER, SELFPAY | PROVIDERS: PCP Internal Medicine; Referring Provider Internal Medicine; Visit Provider Internal Medicine Gastroenterology | DX: R13.10 Dysphagia, unspecified (principal); C16.9 Malignant neoplasm of stomach, unspecified; Z88.6 Allergy status to analgesic agent; Z79.4 Long term (current) use of insulin; Z79.899 Other long term (current) drug therapy | CPT/HCPCS: 99212 ==

== ENCOUNTER 2020-11-20 06:46 | Day surgery (SDC) | payer MEDICARE, OTHER, SELFPAY ==
--- NOTE | ~2020-11-20 | IR_ITS ---
PROCEDURE: REMOVAL OF OLD TUNNELED CATHETER. IR INSERTION OF NEW TUNNEL CATHETER CLINICAL INFORMATION: Exposure 4 chamber of the catheter to the skin. Needs to be removed. New insertion of port catheter for chemotherapy treatment. COMPARISON: I are insertion of tunneled catheter 07/25/2020. TECHNIQUE: Following explaining removal of existing tunneled catheter and insertion of a new tunneled catheter procedure, benefits and risk, a written consent was obtained from the patient. Patient was placed supine on fluoroscopy table in anterior neck and anterior chest wall was cleaned bilaterally in a usual sterile manner. 1% lidocaine was injected around the existing right anterior chest wall four-chamber. The port was dissected bluntly with 2 sutures were removed and the port was easily removed without complications. Absorbable 3 0 sutures were placed and the incision was closed. Sterile dressing applied post procedure. Preliminary ultrasound imaging was then performed from the left anterior neck and optimal site was selected and marked along the anterolateral neck. 1% lidocaine was injected at puncture site. Under sterile ultrasound guidance a single wall needle was advanced and left jugular vein was punctured. After observing venous return 18 guidewire was advanced and needle withdrawn. A 3 Kiswahili centimeters advanced over the guidewire. Both the guidewire and the dilator were anchored to the great with hemostats. Approximately 1 was length inferior and lateral to the neck incision 1% lidocaine was inserted. A small skin incision was performed and at small pocket was dissected bluntly. The port was trialed in and out of the pocket several times. The four-chamber was then: 2 the catheter and placed in the newly created pocket and anchored with 3 0 nonabsorbable nylon sutures on the right and left side of the Port. A blunt the liver at this the catheter was then inserted subcutaneously from the chest wall incision to the right neck incision with the common catheter pulled out. The catheter was sized to 28 cm. The guidewire placed along the left anterior neck was removed and a long. 0.035 J-wire was introduced under fluoroscopy advanced into the IVC and the dilator removed. A 7 Kiswahili dilator and sheath was advanced over the guidewire. The dilator and the guidewire was removed. A precut 5 Kiswahili catheter was then advanced through the peel-away sheath. The peel-away sheath was removed and the catheter was held in firmly in position second clinical research assistant. Both incisions were sutured with 430 absorbable sutures. Steri-Strips were applied at both incision sites. The port was accessed with a Gupta needle and flushed with heparinized saline. Conscious sedation was utilized during the exam. Patient tolerated procedure extremely well. All elements of maximal sterile barrier technique followed including use of cap, mask, sterile gown, sterile gloves, a sterile full body drape and hand hygiene. Also followed skin preparation with 2% chlorhexidine for cutaneous antisepsis, and sterile ultrasound preparation with sterile gel and probe cover when applicable. FINDINGS: Successful removal of right portacatheter with sutures placed along the anterior chest wall. Successful insertion of a left portacatheter under fluoroscopy and ultrasound guidance. The catheter is 28 cm long with its tip at the aortocaval junction. IR/IR us guide venous access IMPRESSION: Successful removal of right Port-A-Cath. Successful insertion of a left Port-A-Cath with its tip at the atrial caval junction. Bony FLUOROSCOPY TIME: 0.8 minutes. DOSE AREA PRODUCT: 82 cGy/CM2
--- NOTE | ~2020-11-20 | IR_ITS ---
PROCEDURE: REMOVAL OF OLD TUNNELED CATHETER. IR INSERTION OF NEW TUNNEL CATHETER CLINICAL INFORMATION: Exposure 4 chamber of the catheter to the skin. Needs to be removed. New insertion of port catheter for chemotherapy treatment. COMPARISON: I are insertion of tunneled catheter 07/25/2020. TECHNIQUE: Following explaining removal of existing tunneled catheter and insertion of a new tunneled catheter procedure, benefits and risk, a written consent was obtained from the patient. Patient was placed supine on fluoroscopy table in anterior neck and anterior chest wall was cleaned bilaterally in a usual sterile manner. 1% lidocaine was injected around the existing right anterior chest wall four-chamber. The port was dissected bluntly with 2 sutures were removed and the port was easily removed without complications. Absorbable 3 0 sutures were placed and the incision was closed. Sterile dressing applied post procedure. Preliminary ultrasound imaging was then performed from the left anterior neck and optimal site was selected and marked along the anterolateral neck. 1% lidocaine was injected at puncture site. Under sterile ultrasound guidance a single wall needle was advanced and left jugular vein was punctured. After observing venous return 18 guidewire was advanced and needle withdrawn. A 3 Sami centimeters advanced over the guidewire. Both the guidewire and the dilator were anchored to the great with hemostats. Approximately 1 was length inferior and lateral to the neck incision 1% lidocaine was inserted. A small skin incision was performed and at small pocket was dissected bluntly. The port was trialed in and out of the pocket several times. The four-chamber was then: 2 the catheter and placed in the newly created pocket and anchored with 3 0 nonabsorbable nylon sutures on the right and left side of the Port. A blunt the liver at this the catheter was then inserted subcutaneously from the chest wall incision to the right neck incision with the common catheter pulled out. The catheter was sized to 28 cm. The guidewire placed along the left anterior neck was removed and a long. 0.035 J-wire was introduced under fluoroscopy advanced into the IVC and the dilator removed. A 7 Sami dilator and sheath was advanced over the guidewire. The dilator and the guidewire was removed. A precut 5 Sami catheter was then advanced through the peel-away sheath. The peel-away sheath was removed and the catheter was held in firmly in position second assistant guest services manager. Both incisions were sutured with 430 absorbable sutures. Steri-Strips were applied at both incision sites. The port was accessed with a Gupta needle and flushed with heparinized saline. Conscious sedation was utilized during the exam. Patient tolerated procedure extremely well. All elements of maximal sterile barrier technique followed including use of cap, mask, sterile gown, sterile gloves, a sterile full body drape and hand hygiene. Also followed skin preparation with 2% chlorhexidine for cutaneous antisepsis, and sterile ultrasound preparation with sterile gel and probe cover when applicable. FINDINGS: Successful removal of right portacatheter with sutures placed along the anterior chest wall. Successful insertion of a left portacatheter under fluoroscopy and ultrasound guidance. The catheter is 28 cm long with its tip at the aortocaval junction. IR/IR cvc remove tunnel w prt/cytologist IMPRESSION: Successful removal of right Port-A-Cath. Successful insertion of a left Port-A-Cath with its tip at the atrial caval junction. Bony FLUOROSCOPY TIME: 0.8 minutes. DOSE AREA PRODUCT: 82 cGy/CM2
--- NOTE | ~2020-11-20 | IR_ITS ---
PROCEDURE: REMOVAL OF OLD TUNNELED CATHETER. IR INSERTION OF NEW TUNNEL CATHETER CLINICAL INFORMATION: Exposure 4 chamber of the catheter to the skin. Needs to be removed. New insertion of port catheter for chemotherapy treatment. COMPARISON: I are insertion of tunneled catheter 07/25/2020. TECHNIQUE: Following explaining removal of existing tunneled catheter and insertion of a new tunneled catheter procedure, benefits and risk, a written consent was obtained from the patient. Patient was placed supine on fluoroscopy table in anterior neck and anterior chest wall was cleaned bilaterally in a usual sterile manner. 1% lidocaine was injected around the existing right anterior chest wall four-chamber. The port was dissected bluntly with 2 sutures were removed and the port was easily removed without complications. Absorbable 3 0 sutures were placed and the incision was closed. Sterile dressing applied post procedure. Preliminary ultrasound imaging was then performed from the left anterior neck and optimal site was selected and marked along the anterolateral neck. 1% lidocaine was injected at puncture site. Under sterile ultrasound guidance a single wall needle was advanced and left jugular vein was punctured. After observing venous return 18 guidewire was advanced and needle withdrawn. A 3 Indonesian centimeters advanced over the guidewire. Both the guidewire and the dilator were anchored to the great with hemostats. Approximately 1 was length inferior and lateral to the neck incision 1% lidocaine was inserted. A small skin incision was performed and at small pocket was dissected bluntly. The port was trialed in and out of the pocket several times. The four-chamber was then: 2 the catheter and placed in the newly created pocket and anchored with 3 0 nonabsorbable nylon sutures on the right and left side of the Port. A blunt the liver at this the catheter was then inserted subcutaneously from the chest wall incision to the right neck incision with the common catheter pulled out. The catheter was sized to 28 cm. The guidewire placed along the left anterior neck was removed and a long. 0.035 J-wire was introduced under fluoroscopy advanced into the IVC and the dilator removed. A 7 Indonesian dilator and sheath was advanced over the guidewire. The dilator and the guidewire was removed. A precut 5 Indonesian catheter was then advanced through the peel-away sheath. The peel-away sheath was removed and the catheter was held in firmly in position second medical assistant float. Both incisions were sutured with 430 absorbable sutures. Steri-Strips were applied at both incision sites. The port was accessed with a Gupta needle and flushed with heparinized saline. Conscious sedation was utilized during the exam. Patient tolerated procedure extremely well. All elements of maximal sterile barrier technique followed including use of cap, mask, sterile gown, sterile gloves, a sterile full body drape and hand hygiene. Also followed skin preparation with 2% chlorhexidine for cutaneous antisepsis, and sterile ultrasound preparation with sterile gel and probe cover when applicable. FINDINGS: Successful removal of right portacatheter with sutures placed along the anterior chest wall. Successful insertion of a left portacatheter under fluoroscopy and ultrasound guidance. The catheter is 28 cm long with its tip at the aortocaval junction. IR/IR cvc insert tunnel w prt/cupola man IMPRESSION: Successful removal of right Port-A-Cath. Successful insertion of a left Port-A-Cath with its tip at the atrial caval junction. Bony FLUOROSCOPY TIME: 0.8 minutes. DOSE AREA PRODUCT: 82 cGy/CM2
[2020-11-20 07:09] VITALS: BMI 23.1
[2020-11-20 07:26] LABS: Glucose, Whole Blood 76 mg/dL (60-115)
[2020-11-20 07:37] LABS: MANUAL DIFF FLAG NO
[2020-11-20 07:39] LABS: Basophils Percent Auto 0.2 % (0-2); Eosinophils Percent Auto 0.2 % (0-4); Hematocrit 29.7 % (37-47); Hemoglobin 9.5 g/dl (12.0-16.0); Imm Gran Abs Auto 0.03 X10*3/uL (0.00-0.03); Imm Gran Pct Auto 0.5 % (0.0-0.4); Lymphocytes Absolute Auto 1.3 X10*3/uL (1.2-4.9); Lymphocytes Percent Auto 23.7 % (20-40); Mean Corpuscular Hemoglobin 30.6 pg (27.0-33.0); Mean Corpuscular Volume 95.8 fL (80-98); Mean Platelet Volume 9.8 fL (9.4-12.3); Monocytes Absolute Auto 0.4 X10*3/uL (0.1-1.2); Monocytes Percent Auto 7.7 % (2-11); Neutrophils Absolute Auto 3.8 X10*3/uL (2.0-8.3); Neutrophils Percent Auto 67.7 % (45-73); Platelet Count 160 X10*3/uL (160-400); Red Cell Distribution Width 15.5 % (11.0-16.0); White Blood Count 5.6 X10*3/uL (4.8-10.8)
[2020-11-20 07:44] LABS: Prothrombin Time 11.5 SEC (9.9-13.0)
[2020-11-20 07:46] LABS: Partial Thromboplastin Time 33.8 SEC (24.1-38.0)
[2020-11-20] MEDS: Lidocaine HCl 1 % MPF 5 ML VIAL SUBCUT (10:32)
[2020-11-20] MEDS: Heparin Sodium,Porcine Flush 500 UNIT/5 ML SYRINGE IVFLUSH (10:32)
[2020-11-20 10:45] VITALS: BP 138/64; PULSE 80; RESP 16; TEMP 36.6; O2SAT 97
[2020-11-20 11:00] VITALS: BP 142/72; PULSE 76; RESP 18; O2SAT 97
[2020-11-20] MEDS: Acetaminophen 325 MG TABLET 650 MG PO (11:02)
[2020-11-20] MEDS: oxyCODONE HCl Immed Release 5 MG TABLET PO (11:03)
[2020-11-20 11:30] VITALS: BP 122/58; PULSE 72; RESP 16; O2SAT 99
[2020-11-20 12:00] VITALS: BP 112/54; PULSE 80; RESP 18; O2SAT 100
[2020-11-20 12:45] VITALS: BP 117/59; PULSE 74; RESP 16; O2SAT 99
[2020-11-20 13:20] VITALS: BP 120/63; PULSE 79; RESP 18; TEMP 36.4; O2SAT 99
== END 2020-11-20 13:33 | disposition home or self-care (01) ==
PROVIDERS: PCP Internal Medicine; Visit Provider Radiology Diagnostic Radiology
DX: C16.2 Malignant neoplasm of body of stomach (principal); E11.65 Type 2 diabetes mellitus with hyperglycemia; K22.10 Ulcer of esophagus without bleeding; Z87.19 Personal history of other diseases of the digestive system; Z87.891 Personal history of nicotine dependence
CPT/HCPCS: 36415; 36561; 36590; 76937; 82947; 85025; 85610; 85730; C1769; C1788; J0690; J1642; J2250; J3010

== ENCOUNTER 2021-06-21 12:36 | Day surgery (SDC) | payer MEDICARE, SELFPAY ==
--- NOTE | 2021-06-18 13:09 | P.CONAN_ITS ---
Documented by User: Isha Carbajal NP 06/18/21 13:13 HPI - Anesthesia Eval Consult details Narrative: 65yo F for Upper Endoscopy and Colonoscopy Gastric cancer s/p total gastrectomy lymphadenectomy and omentectomy, Melyssa-en-Y reconstruction with end-to-side esophagojejunostomy(retro colic.) 12/2018 Current chemo (last 06/17/21) PRN opioids PMFSH Active Problems Active Problems: All Active Problems (Updated 02/01/21 @ 10:59 by June Cisneros MD) History of gastrectomy (Acute) History of gastrectomy (Acute) Loose bowel movements (Acute) Hypercholesterolemia (Acute) Coarse tremors (Acute) Type 2 diabetes mellitus with hyperglycemia (Acute) Diverticulitis (Acute) UTI (urinary tract infection) (Acute) Erosive esophagitis (Acute) Gastric cancer (Acute) Past Medical History Medical History History of cellulitis Hx of diverticulitis of colon Hypercholesterolemia Lab test negative for COVID-19 virus Type 2 diabetes mellitus with hyperglycemia Family History Family History Father Pancreatic cancer Mother NHL (non-Hodgkin's lymphoma) Maternal Grandfather Prostate cancer Maternal Grandmother Diabetes Heart disease Paternal Grandfather Diabetes Son Asthma Surgical History Surgical History H/O tubal ligation History of esophagogastroduodenoscopy (EGD) History of gastrectomy Hx of appendectomy Hx of colonoscopy Hx of tonsillectomy S/P cholecystectomy (~1988) S/P right knee arthroscopy (~2002) Social History Social History Household Members: Spouse and Children Housing: House Are you a primary intensive care ambulance paramedic to a significant other at home: No Do you presently have visiting nurse or other home services: No Alcohol intake: current Alcohol intake frequency: does not drink Patient Tobacco Use Status: Never used Tobacco Second Hand Smoke Exposure: No Use of substances other than those prescribed or required for medical reasons: No Are you DNR?: No Advance Directives: No Advance Directives Information Provided: Yes Advance Directives on File: No service: No Current occupational status: unemployed and previously employed 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 Allergy/AdvReac Type Severity Reaction Status Date / Time meperidine [From Demerol] Allergy Severe Swelling Verified 05/06/21 11:05 Home Medications Medication Instructions Recorded Confirmed Last Taken Type multivitamin 1 tab PO DAILY 05/11/20 06/10/21 Unknown History Exam Exam Date and Time: June 18, 2021 1309 Pertinent Lab Results Pertinent Lab Results: Laboratory Tests 06/17/21 06/17/21 09:00 09:00 WBC 3.4 L Hgb 9.4 L Hct 29.3 L Plt Count 187 D Sodium 138 Potassium 3.9 Chloride 104 Carbon Dioxide 28 BUN 9 Creatinine 0.54 Assessment and Plan Assessment Anesthesia Assessment: Chart Reviewed Documented by User: Laquita Rodriguez MD 06/21/21 15:12 [facility] Past Medical History Medical History History of cellulitis Hx of diverticulitis of colon Hypercholesterolemia Lab test negative for COVID-19 virus Type 2 diabetes mellitus with hyperglycemia Family History Family History Father Pancreatic cancer Mother NHL (non-Hodgkin's lymphoma) Maternal Grandfather Prostate cancer Maternal Grandmother Diabetes Heart disease Paternal Grandfather Diabetes Son Asthma Family history of problems with anesthesia: No Surgical History Surgical History H/O tubal ligation History of esophagogastroduodenoscopy (EGD) History of gastrectomy Hx of appendectomy Hx of colonoscopy Hx of tonsillectomy S/P cholecystectomy (~1988) S/P right knee arthroscopy (~2002) History of Problems with Anesthesia: No Social History Social History Household Members: Spouse and Children Housing: House Are you a primary intensive care ambulance paramedic to a significant other at home: No Do you presently have visiting nurse or other home services: No Alcohol intake: current Alcohol intake frequency: does not drink Patient Tobacco Use Status: Never used Tobacco Second Hand Smoke Exposure: No Use of substances other than those prescribed or required for medical reasons: No Are you DNR?: No Advance Directives: No Advance Directives Information Provided: Yes Advance Directives on File: No service: No Current occupational status: unemployed and previously employed 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 Allergy/AdvReac Type Severity Reaction Status Date / Time meperidine [From Demerol] Allergy Severe Swelling Verified 05/06/21 11:05 Home Medications Medication Instructions Recorded Confirmed Last Taken Type multivitamin 1 tab PO DAILY 05/11/20 06/10/21 Unknown History Exam Airway Mallampati Class: II TM Dist: >3cm Neck ROM: Full Denture: Upper and Lower Heart: rrr Lungs: cta Assessment and Plan Assessment Anesthesia Assessment: Anesthesia Plan Discussed and Chart Reviewed Final Anesthetic Review Family History of Problems with Anesthesia: No History of Problems with Anesthesia: No NPO: Yes ASA Class: III Final Preanesthetic Review: No Changes in Pt Med Stat, Meds/Allgs Chart Reviewed and Consent Obtained/Reviewed Patient Risk: Intermediate Procedure Risk: Intermediate Anesthetic Plan Anesthetic Plan: MAC: Disposition: Standard PACU
[2021-06-21 14:11] VITALS: BP 156/66; PULSE 75; RESP 16; TEMP 36.1; O2SAT 97; BMI 18.0
[2021-06-21] MEDS: Lactated Ringers 1,000 ML 100 ML IVCONT (14:30)
[2021-06-21 14:37] LABS: Glucose, Whole Blood 28 mg/dL (60-115)
[2021-06-21] MEDS: Dextrose 50 % 25 GM/50 ML SYRINGE IVPUSH (14:49)
--- NOTE | 2021-06-21 14:49 | PC.NURSE ---
Addendum entered by Pérez Javed RN 06/21/21 15:06: rechecked POC 144 @1505 Original Note: pt POC 28. pt A&Ox3 conversing with this RN. pt denies any dizziness/lightheadedness at this time. pt tremulous at baseline per pt. pt states blood sugar has been as low as 40-50's in the past. Dextrose 50% 25gm IVP given per hyperglycemia protocal and ordered by Dr. Villagomez. will recheck POC.
[2021-06-21 15:07] LABS: Glucose, Whole Blood 144 mg/dL (60-115)
--- NOTE | 2021-06-21 15:12 | P.HPSUR_ITS ---
Pre-Procedural Eval Section A Date of Service: 06/21/21 The patient is an INPATIENT: No The History & Physical has been completed within 30 days and I have reviewed it.: No Section B Chief Complaint: abdominal pain, wt loss, fU gastric cancer Details of Present Illness: FU gastric cancer Relevant Family History (Specify if Yes): Yes Present Medications: see Short Stay Collaborative assessment Medical History: Significant History (History of cellulitis Hx of diverticulitis of colon Hypercholesterolemia Lab test negative for COVID-19 virus Type 2 diabet es mellitus with hyperglycemia) History of Previous Operations: Relevant previous surgery/procedure and date(s) (H/O tubal ligation History of esophagogastroduodenoscopy (EGD) History of gastrectomy Hx of appendectomy Hx of colonoscopy Hx of tonsillectomy S/P cholecystectomy Onset Date: ~1988 S/P right knee arthroscopy Onset Date: ~2002) Allergies: Allergies Allergy/AdvReac Type Severity Reaction Status Date / Time meperidine [From Demerol] Allergy Severe Swelling Verified 05/06/21 11:05 Review of Systems Sugical H&P ROS: Negative: Constitution, Cardiovascular and Respiratory and Yes, Specify: Gastrointestinal (wt loss, dysphagia) Exam Surgical H&P Exam: Normal: Heart, Normal: Lungs, Normal: Extremities and Normal: Abdomen Plan Diagnosis/Plan: Unchanged I have reviewed the history and physical and performed a pertinent physical examination on my patient. No changes have occurred unless specified.
--- NOTE | 2021-06-21 15:24 | PM.OP ---
Brief Operative Note Date of Service: 06/21/21 Pre-op diagnosis: Abdominal pain, poor PO intake, dysphagia, wt loss. Pt is status post total gastrectomy with reconstruction, omentectomy, esophago-jejunostomy with Melyssa en Y reconstruction for Gastric cancer in 12/2020 Post-op diagnosis: same Procedure: FLEXIBLE TRANSORAL UPPER GASTROINTESTINAL ENDOSCOPY WITH BIOPSIES AND BALLOON DILATION OF ESOPHAGO-JEJUNAL ANASTOMOSIS Consent: Indications for the procedure and potential complications of bleeding, perforation, reaction to medications and missed diagnosis were discussed with the patient and informed consent was obtained. Instrument: Olympus GIF H 190 mid size upper endoscope Monitoring: Vital signs and clinical assessment, continuous EKG monitoring, Pulse oximetry, Carbon Dioxide monitoring and blood pressure monitoring were done throughout the procedure. Procedure: The patient was placed in the left lateral decubitis position and pre-procedure medications were administered and a bite block was placed. The endoscope was inserted into the mouth and advanced under direct vision to the third part of duodenum. A careful inspection was made as the upper endoscope was withdrawn including a retroflexed examination of the proximal stomach; Findings and interventions are described below. Findings: Larynx: Normal Esophagus: Tortuous esophagus with increased tertiary contractions without stricture or ring. Normal appearing anastomosis in the distal esophagus with a 2 cms patch of columner epithelium - biopsied. Empiric baloon dilation of esophago-jejunal anstomosis with an 18 mm (54F) CRE balloon x 60 seconds. Stomach: surgically removed Jejunum: Afferent and efferent limbs of melyssa loop were examined and appeared normal - jejunal biopsies were obtained to check for celiac sprue Intervention: Biopsies and baloon dilation as noted above Impression and Post Procedure Diagnosis: Endoscopy Findings: ESOPHAGUS: Tortuous esophagus with increased tertiary contractions without stricture or ring. Normal appearing anastomosis in the distal esophagus with a 2 cms patch of columner epithelium - biopsied. Empiric baloon dilation of esophago-jejunal anstomosis with an 18 mm (54F) CRE balloon x 60 seconds. JEJUNUM: Afferent and efferent limbs of melyssa loop were examined and appeared normal - jejunal biopsies were obtained to check for celiac sprue Plan: Await pathology results. Schedule a bariums swallow with SBFT to evaluated distal small bowel anastomosis. Patient has an appointment on 07/01/21 in the Oncology Clinic with Dr Cisneros. Above findings were reviewed with the patient. BIOPSIES SHOWED: A.? Small bowel, biopsy:? Small intestinal mucosa within normal limits; negative for celiac disease. B.? Anastomosis, biopsy: - Squamocolumnar mucosa with moderate chronic active inflammation. - Detached fragment of intestinal/intestinalized mucosa with active inflammation. Surgeon: Master Fields MD Anesthesia: MAC (Dr Ortiz) Was an Corporate Learning Consultant used for this Procedure?: No Corporate Learning Consultant: Danna Yates Estimated blood loss (mL): 0 Pathology: other (A. small bowel bxs, R/O celiac B. anastomosis bxs) Condition: stable Disposition: PACU
[2021-06-21 15:45] VITALS: BP 103/59; PULSE 71; RESP 16; TEMP 36.4; O2SAT 100
--- NOTE | 2021-06-21 15:45 | P.OP_ITS ---
Operative Note Operative Note Date of Service: 06/21/21 Narrative: Pre-op diagnosis: Abdominal pain, poor PO intake, dysphagia, wt loss. Pt is status post total gastrectomy with reconstruction, omentectomy, esophago- jejunostomy with Melyssa en Y reconstruction for Gastric cancer in 12/2020 Post-op diagnosis:?same Procedure: FLEXIBLE TRANSORAL UPPER GASTROINTESTINAL ENDOSCOPY WITH BIOPSIES AND BALLOON DILATION OF ESOPHAGO-JEJUNAL ANASTOMOSIS Consent:?Indications for the procedure and potential complications of bleeding, perforation, reaction to medications and missed diagnosis were discussed with the patient and informed consent was obtained. Instrument:?Olympus GIF H 190 mid size upper endoscope Monitoring: Vital signs and clinical assessment, continuous EKG monitoring, Pulse oximetry, Carbon Dioxide monitoring and blood pressure monitoring were done throughout the procedure. Procedure:?The patient was placed in the left lateral decubitis position and pre-procedure medications were administered and a bite block was placed. The endoscope was inserted into the mouth and advanced under direct vision to the third part of duodenum. A careful inspection was made as the upper endoscope was withdrawn including a retroflexed examination of the proximal stomach; Findings and interventions are described below. Findings: Larynx:? Normal Esophagus:? Tortuous esophagus with increased tertiary contractions without stricture or ring. Normal appearing anastomosis in the distal esophagus with a 2 cms patch of columner epithelium - biopsied.? Empiric baloon dilation of esophago-jejunal anstomosis with an 18 mm (54F) CRE balloon x 60 seconds. Stomach: surgically removed Jejunum: Afferent and efferent limbs of melyssa loop were examined and appeared normal - jejunal biopsies were obtained to check for celiac sprue Intervention: Biopsies and baloon dilation as noted above Impression and Post Procedure Diagnosis: Endoscopy Findings: ESOPHAGUS: Tortuous esophagus with increased tertiary contractions without stricture or ring. Normal appearing anastomosis in the distal esophagus with a 2 cms patch of columner epithelium - biopsied.? Empiric baloon dilation of esophago-jejunal anstomosis with an 18 mm (54F) CRE balloon x 60 seconds. JEJUNUM: Afferent and efferent limbs of melyssa loop were examined and appeared normal - jejunal biopsies were obtained to check for celiac sprue Plan: Await pathology results. Schedule a bariums swallow with SBFT to evaluated distal small bowel anastomosis. Patient has an appointment on 07/01/21 in the Oncology Clinic with Dr Cisneros. Repeat EGD in 6 months. Above findings were reviewed with the patient. BIOPSIES SHOWED: A.? Small bowel, biopsy:? Small intestinal mucosa within normal limits; negative for celiac disease. B.? Anastomosis, biopsy: - Squamocolumnar mucosa with moderate chronic active inflammation. - Detached fragment of intestinal/intestinalized mucosa with active inflammation. Surgeon: Master Fields MD Anesthesia:?MAC (Dr Ortiz) Was an Certified Surgical Technician used for this Procedure?:?No Certified Surgical Technician:?Danna Yates Estimated blood loss (mL):?0 Pathology:?other (A. small bowel bxs, R/O celiac? B. anastomosis bxs) Condition:?stable Disposition:?PACU
[2021-06-21 15:55] LABS: Glucose, Whole Blood 83 mg/dL (60-115)
[2021-06-21 16:00] VITALS: BP 119/65; PULSE 69; RESP 16; O2SAT 100
[2021-06-21 16:15] VITALS: BP 135/66; PULSE 70; RESP 16; TEMP 36.4; O2SAT 100
== END 2021-06-21 16:37 | disposition home or self-care (01) ==
PROVIDERS: PCP Internal Medicine; Visit Provider Internal Medicine Gastroenterology
PROC: 0DJ08ZZ Inspection of Upper Intestinal Tract, Via Natural or Artificial Opening Endoscopic (ICD-10-PCS; CPT 43235; principal; 2021-06-21 14:00)
DX: R10.9 Unspecified abdominal pain (principal); R63.8 Other symptoms and signs concerning food and fluid intake; R13.10 Dysphagia, unspecified; R63.4 Abnormal weight loss; K22.10 Ulcer of esophagus without bleeding; C16.2 Malignant neoplasm of body of stomach; Z90.3 Acquired absence of stomach [part of]; Z79.52 Long term (current) use of systemic steroids; Z79.899 Other long term (current) drug therapy; E78.00 Pure hypercholesterolemia, unspecified; E11.65 Type 2 diabetes mellitus with hyperglycemia; Z79.4 Long term (current) use of insulin; R19.5 Other fecal abnormalities; Z87.19 Personal history of other diseases of the digestive system; Z80.0 Family history of malignant neoplasm of digestive organs; Z80.7 Family history of other malignant neoplasms of lymphoid, hematopoietic and related tissues; Z87.891 Personal history of nicotine dependence
CPT/HCPCS: 43245; 43239; 82947; 88305; C1726

== ENCOUNTER 2021-07-12 08:46 | Outpatient (REF) | payer MEDICARE, SELFPAY ==
--- NOTE | ~2021-07-12 | CT_ITS ---
EXAMINATION: CT CHEST WITH CONTRAST CLINICAL INFORMATION: Gastric cancer. On chemotherapy. Assess response to treatment. COMPARISON: Previous chest CT October 2020. TECHNIQUE: Multidetector volumetric CT imaging of the chest was obtained after the administration of 85 mL of Omnipaque 350 intravenous contrast without immediate adverse reactions. Axial MIP volume rendering provided. Sagittal and coronal reformatted images were obtained. This CT examination was performed using dose optimization techniques as appropriate, variously including the following: *Automated exposure control *Adjustment of mA and/or kV according to patient size (this includes techniques or standardized protocols for targeted exams where dose is matched to indication/reason for exam; i.e. extremities or head) *Use of iterative reconstruction technique DLP: 91 mGy-cm FINDINGS: LUNGS: The lungs are clear. MEDIASTINUM: There are no enlarged hilar or mediastinal lymph nodes. The thyroid gland is unremarkable. The heart does not appear enlarged. There is no pericardial effusion. The thoracic aorta is normal in caliber. There is a left subclavian port with tip projecting over the SVC. The esophagus is slightly dilated and filled with oral contrast. Postsurgical changes of the distal esophagus/upper stomach. There is circumferential wall thickening seen in this region. There may be a small esophageal hernia. PLEURA: There is no pleural effusion. No pleural mass or thickening. AXILLA: No lymphadenopathy. UPPER ABDOMEN: See abdominal and pelvic CT report from the same day. OSSEOUS STRUCTURES: Unremarkable. CT/CT chest w con IMPRESSION: No evidence of metastatic disease. Distended contrast-filled stomach. Question postsurgical change to the distal esophagus/proximal stomach. There is circumferential wall thickening of the GE junction region. There may be a small esophageal hernia. Fleischner guidelines were followed.
--- NOTE | ~2021-07-12 | CT_ITS ---
EXAMINATION: CT ABDOMEN AND PELVIS WITH CONTRAST CLINICAL INFORMATION: Gastric cancer on chemotherapy. Assess response to treatment. COMPARISON: Previous CT of the abdomen and pelvis October 2020 TECHNIQUE: Multidetector volumetric images were obtained from the superior aspect of the liver through the pubic symphysis following administration 85 mL of Omnipaque 350 intravenous contrast. Sagittal and coronal reformatted images were obtained on the technologist's workstation. Oral contrast: Yes This CT examination was performed using dose optimization techniques as appropriate, variously including the following: *Automated exposure control *Adjustment of mA and/or kV according to patient size (this includes techniques or standardized protocols for targeted exams where dose is matched to indication/reason for exam; i.e. extremities or head) *Use of iterative reconstruction technique DLP: 195 mGy-cm FINDINGS: LUNG BASES: The visualized lung bases are unremarkable. LIVER, GALLBLADDER, AND BILIARY TREE: The liver is normal in size, shape, and attenuation. There are small calcifications in the liver. No focal hepatic lesion or biliary ductal dilatation is present. The gallbladder has been removed. PANCREAS: Unremarkable. SPLEEN: Unremarkable. ADRENAL GLANDS: Unremarkable. KIDNEYS AND URETERS: The kidneys are normal in size, shape, and attenuation. No hydronephrosis, hydroureter, or calculi seen. No perinephric stranding. BLADDER: Not optimally distended. GASTROINTESTINAL TRACT: There is stool throughout the colon suggestive of mild constipation. There is mild wall thickening of the cecum. Small and large bowel is otherwise unremarkable. There may be postsurgical changes to the stomach and esophageal hernia. No gastric mass is appreciated.. ABDOMINAL WALL: No significant hernia is appreciated. LYMPH NODES: Normal. VASCULAR: Unremarkable. PELVIC VISCERA: Unremarkable. OSSEOUS STRUCTURES: The bones may be osteopenic. There is degenerative changes at L5-S1 and the left hip joint. No focal bone lesion or fracture is seen. CT/CT abdomen pelvis w con IMPRESSION: Question postsurgical change to the stomach and small esophageal hernia. No definite mass appreciated. No enlarged lymph nodes. Stool throughout the colon suggestive of constipation. Question mild wall thickening or colitis of the cecum. Fleischner guidelines were followed.
[2021-07-12] MEDS: iohexoL 350 MG/ML 100 ML INFUS..BTL IV (11:35)
== END 2021-07-12 08:47 | disposition home or self-care (01) ==
LOC: HO.CT 08:46
PROVIDERS: Visit Provider Internal Medicine Medical Oncology
DX: C16.9 Malignant neoplasm of stomach, unspecified (principal)
CPT/HCPCS: 71260; 74177; Q9967

== ENCOUNTER → 2021-09-16 07:17 | Outpatient (BNVA) | payer MEDICARE, SELFPAY | PROVIDERS: PCP Internal Medicine; Referring Provider Internal Medicine Medical Oncology; Visit Provider Internal Medicine Gastroenterology | DX: K57.92 Diverticulitis of intestine, part unspecified, without perforation or abscess without bleeding (principal); K22.10 Ulcer of esophagus without bleeding; R13.14 Dysphagia, pharyngoesophageal phase; C16.9 Malignant neoplasm of stomach, unspecified; Z90.3 Acquired absence of stomach [part of] | CPT/HCPCS: 99212 ==

== ENCOUNTER 2021-09-21 11:27 | Day surgery (SDC) | payer MEDICARE, SELFPAY ==
--- NOTE | 2021-09-20 10:32 | P.CONAN_ITS ---
Documented by User: Isha Carbajal NP 09/20/21 10:34 HPI - Anesthesia Eval Consult details Narrative: 65yo F for Upper Endoscopy s/p EGD 06/2021 with MAC Gastric cancer s/p total gastrectomy lymphadenectomy and omentectomy, Melyssa-en-Y reconstruction with end-to-side esophagojejunostomy(retro colic.) 12/2018 Current chemo (last 06/17/21) PRN opioids PMFSH Active Problems Active Problems: All Active Problems (Updated 06/21/21 @ 16:05 by Master Fields MD) Dysphagia, pharyngoesophageal phase (Acute) History of gastrectomy (Acute) History of gastrectomy (Acute) Loose bowel movements (Acute) Hypercholesterolemia (Acute) Coarse tremors (Acute) Type 2 diabetes mellitus with hyperglycemia (Acute) Diverticulitis (Acute) UTI (urinary tract infection) (Acute) Erosive esophagitis (Acute) Gastric cancer (Acute) Past Medical History Medical History (Updated 06/21/21 @ 16:05 by Master Fields MD) History of cellulitis Hx of diverticulitis of colon Hypercholesterolemia Lab test negative for COVID-19 virus Type 2 diabetes mellitus with hyperglycemia Family History Family History Father Pancreatic cancer Mother NHL (non-Hodgkin's lymphoma) Maternal Grandfather Prostate cancer Maternal Grandmother Diabetes Heart disease Paternal Grandfather Diabetes Son Asthma Family history of problems with anesthesia: No Surgical History Surgical History H/O tubal ligation History of esophagogastroduodenoscopy (EGD) History of gastrectomy Hx of appendectomy Hx of colonoscopy Hx of tonsillectomy S/P cholecystectomy (~1988) S/P right knee arthroscopy (~2002) History of Problems with Anesthesia: No Social History Social History Household Members: Spouse and Children Housing: House Are you a primary skin care therapist to a significant other at home: No Do you presently have visiting nurse or other home services: No Alcohol intake: current Alcohol intake frequency: does not drink Patient Tobacco Use Status: Never used Tobacco Second Hand Smoke Exposure: No Are you DNR?: No Advance Directives: No Advance Directives Information Provided: Yes Recently lost weight without trying: Yes service: No Current occupational status: unemployed and previously employed 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 Allergy/AdvReac Type Severity Reaction Status Date / Time meperidine [From Demerol] Allergy Severe Swelling Verified 09/16/21 07:36 Home Medications Medication Instructions Recorded Confirmed Last Taken Type multivitamin 1 tab PO DAILY 05/11/20 06/10/21 Unknown History sucralfate 1 gram tablet 1 g PO TID 09/16/21 Unknown History Exam Exam Date and Time: September 20, 2021 1032 Pertinent Lab Results Pertinent Lab Results: Laboratory Tests 09/09/21 09/09/21 09:37 09:50 WBC 2.7 L Hgb 8.8 L Hct 27.8 L Plt Count 151 L Sodium 140 Potassium 3.6 Chloride 106 Carbon Dioxide 27 BUN 10 Creatinine 0.47 L Assessment and Plan Assessment Anesthesia Assessment: Chart Reviewed Final Anesthetic Review Family History of Problems with Anesthesia: No History of Problems with Anesthesia: No Documented by User: Hemanth Marquez MD 09/21/21 14:11 HPI - Anesthesia Eval Consult details Narrative: 65yo F for Upper Endoscopy s/p EGD 06/2021 with MAC Gastric cancer s/p total gastrectomy lymphadenectomy and omentectomy, Melyssa-en-Y reconstruction with end-to-side esophagojejunostomy(retro colic.) 12/2018 Current chemo (last 06/17/21) PRN opioids Preop BS 22; D5W given 500cc, f/u 72. Will plan to proceed and continue D5W intraop PMFSH Past Medical History Medical History (Updated 06/21/21 @ 16:05 by Master Fields MD) History of cellulitis Hx of diverticulitis of colon Hypercholesterolemia Lab test negative for COVID-19 virus Type 2 diabetes mellitus with hyperglycemia Family History Family History Father Pancreatic cancer Mother NHL (non-Hodgkin's lymphoma) Maternal Grandfather Prostate cancer Maternal Grandmother Diabetes Heart disease Paternal Grandfather Diabetes Son Asthma Family history of problems with anesthesia: No Surgical History Surgical History H/O tubal ligation History of esophagogastroduodenoscopy (EGD) History of gastrectomy Hx of appendectomy Hx of colonoscopy Hx of tonsillectomy S/P cholecystectomy (~1988) S/P right knee arthroscopy (~2002) History of Problems with Anesthesia: No Social History Social History Household Members: Spouse and Children Housing: House Are you a primary skin care therapist to a significant other at home: No Do you presently have visiting nurse or other home services: No Alcohol intake: current Alcohol intake frequency: does not drink Patient Tobacco Use Status: Never used Tobacco Second Hand Smoke Exposure: No Are you DNR?: No Advance Directives: No Advance Directives Information Provided: Yes Recently lost weight without trying: Yes service: No Current occupational status: unemployed and previously employed 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 Allergy/AdvReac Type Severity Reaction Status Date / Time meperidine [From Demerol] Allergy Severe Swelling Verified 09/16/21 07:36 Home Medications Medication Instructions Recorded Confirmed Last Taken Type multivitamin 1 tab PO DAILY 05/11/20 06/10/21 Unknown History sucralfate 1 gram tablet 1 g PO TID 09/16/21 Unknown History Exam Airway Mallampati Class: I TM Dist: >3cm Neck ROM: Full Loose/Missing/Broken Teeth: Yes Assessment and Plan Assessment Anesthesia Assessment: Anesthesia Plan Discussed Final Anesthetic Review Family History of Problems with Anesthesia: No History of Problems with Anesthesia: No NPO: Yes ASA Class: III Final Preanesthetic Review: No Changes in Pt Med Stat, Meds/Allgs Chart Reviewed, Consent Obtained/Reviewed and Anes Risks/Benef Reviewed Patient Risk: Low Procedure Risk: Low Anesthetic Plan Anesthetic Plan: MAC: Disposition: Standard PACU
[2021-09-21 11:48] VITALS: BMI 18.5
[2021-09-21 12:08] VITALS: BP 162/59; PULSE 66; RESP 18; TEMP 36.6; O2SAT 96
[2021-09-21] MEDS: Dextrose 5 % 500 ML IV ×2 (12:30→13:27)
--- NOTE | 2021-09-21 12:41 | PC.NURSE ---
prt poc at 1220 [address] farooq aware dextrose 500ml infuse now. started at 1230. pt a/o x3 sts had bs that low only feeling shaky neuros intact only took lantus last night
--- NOTE | 2021-09-21 12:42 | MHC.SHP ---
Pre-Procedural Eval Section A Date of Service: 09/21/21 Section B Chief Complaint: dysphagia,ulcer of esophagus w/o bleed Relevant Family History (Specify if Yes): No Relevant Social History: None Present Medications: see Short Stay Collaborative assessment Medical History: Significant History (History of cellulitis Hx of diverticulitis of colon Hypercholesterolemia Lab test negative for COVID-19 virus Type 2 diabetes mellitus with hyperglycemia) History of Previous Operations: Relevant previous surgery/procedure and date(s) (H/O tubal ligation History of esophagogastroduodenoscopy (EGD) History of gastrectomy Hx of appendectomy Hx of colonoscopy Hx of tonsillectomy S/P cholecystectomy (~1988) S/P right knee arthroscopy (~2002)) Allergies: Allergies Allergy/AdvReac Type Severity Reaction Status Date / Time meperidine [From Demerol] Allergy Severe Swelling Verified 09/16/21 07:36 Review of Systems Sugical H&P ROS: Negative: Constitution, Cardiovascular, Respiratory, Neurological, Psychiatric, Hem-Onc, Allergic/Immunologic, Gastrointestinal, Genitourinary, Musculoskeletal, Integumentary, Endocrine and Eyes/Ears/Nose/Throat Exam Surgical H&P Exam: Normal: HEENT, Normal: Heart, Normal: Lungs, Normal: Extremities, Normal: Abdomen, Normal: Skin and Normal: Neurological Plan Diagnosis/Plan: Unchanged I have reviewed the history and physical and performed a pertinent physical examination on my patient. No changes have occurred unless specified.
--- NOTE | 2021-09-21 12:48 | PC.NURSE ---
pt a/ox3 denies pain dr boateng at bedside and dr corey savage
--- NOTE | 2021-09-21 12:50 | PC.NURSE ---
bs 74 pt sts feeling better nad pwd a/ox3
--- NOTE | 2021-09-21 12:55 | PC.NURSE ---
pt sts not feeling shaky pwd denies dizziness will recheck bs again in 10mins anesthesia aware of recent poc
[2021-09-21 12:57] VITALS: BP 154/87; PULSE 67; RESP 19; TEMP 36.1; O2SAT 96
[2021-09-21 13:01] LABS: Glucose, Whole Blood 74 mg/dL (60-115)
[2021-09-21 13:01] LABS: Glucose, Whole Blood 22 mg/dL (60-115)
[2021-09-21 13:01] LABS: Glucose, Whole Blood 31 mg/dL (60-115)
--- NOTE | 2021-09-21 13:04 | PC.NURSE ---
repeat bs 54pt sts not feeling shaky tiger dr nicole
[2021-09-21 13:09] LABS: Glucose, Whole Blood 55 mg/dL (60-115)
[2021-09-21 13:18] VITALS: BP 154/74; PULSE 61; RESP 17; TEMP 36.1; O2SAT 96
--- NOTE | 2021-09-21 13:23 | PC.NURSE ---
bs 72 pt sts feeling no symptoms pwd nad no dizziness a/ox3 speaking in full sentences dr nicole aware no new orders
[2021-09-21 13:24] LABS: Glucose, Whole Blood 72 mg/dL (60-115)
--- NOTE | 2021-09-21 13:33 | PC.NURSE ---
2nd bag 500ml dextrose by dr nicole pt verbalized understanding of careplan nad
--- NOTE | 2021-09-21 13:54 | P.BOP_ITS ---
Brief Operative Note Date of Service: 09/21/21 Pre-op diagnosis: dysphagia Post-op diagnosis: same Procedure: see op note Surgeon: Albino Kay MD Anesthesia: MAC Was an Splicing Machine Operator Automatic used for this Procedure?: No Estimated blood loss (mL): 0 Condition: stable Disposition: PACU
--- NOTE | 2021-09-21 13:55 | W.PM.OPN ---
Operative Note Operative Note Date of Service: 09/21/21 Narrative: Procedure Description: EGD Indication: dysphagia Anesthesia: MAC FLEXIBLE TRANSORAL UPPER GASTROINTESTINAL ENDOSCOPY UPPER ENDOSCOPY Consent: Indications for the procedure and potential complications of bleeding, perforation, reaction to medications and missed diagnosis were discussed with the patient and informed consent was obtained. Instrument: Olympus GIF H 190 J mid size upper endoscope Monitoring: Vital signs and clinical assessment, continuous EKG monitoring, Pulse oximetry, Carbon Dioxide monitoring and blood pressure monitoring were done throughout the procedure. Procedure: The patient was placed in the left lateral decubitis position and pre-procedure medications were administered and a bite block was placed. The endoscope was inserted into the mouth and advanced under direct vision to the third part of duodenum. A careful inspection was made as the upper endoscope was withdrawn including a retroflexed examination of the proximal stomach; Findings and interventions are described below. Findings: Larynx:? Normal Esophagus:? Tortuous esophagus with minimal contractions with retained food noted. fibrotic ring noted at esophagojejunal anastomosis.? Empiric baloon dilation of esophago-jejunal anstomosis with an 19 mm CRE balloon with no tear noted. Upper esophagus then dilated to 18 mm with resistance felt and superficial tear noted with heme. Stomach: surgically removed Jejunum: Afferent and efferent limbs of jamse loop were examined and appeared normal. 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
[2021-09-21 14:05] VITALS: BP 134/77; PULSE 67; RESP 16; TEMP 36.1; O2SAT 100
[2021-09-21 14:19] VITALS: BP 133/65; PULSE 62; RESP 12; TEMP 36.6; O2SAT 100
[2021-09-21 14:34] VITALS: BP 138/71; PULSE 62; RESP 19; TEMP 36.2; O2SAT 98
[2021-09-21 14:41] LABS: Glucose, Whole Blood 85 mg/dL (60-115)
[2021-09-21 14:41] LABS: Glucose, Whole Blood 107 mg/dL (60-115)
== END 2021-09-21 15:27 | disposition home or self-care (01) ==
PROVIDERS: PCP Internal Medicine; Visit Provider Internal Medicine Gastroenterology
PROC: 0DJ08ZZ Inspection of Upper Intestinal Tract, Via Natural or Artificial Opening Endoscopic (ICD-10-PCS; CPT 43235; principal; 2021-09-21 13:40)
DX: R13.14 Dysphagia, pharyngoesophageal phase (principal); K22.2 Esophageal obstruction; K22.4 Dyskinesia of esophagus; Z87.19 Personal history of other diseases of the digestive system; Z90.3 Acquired absence of stomach [part of]; Z98.0 Intestinal bypass and anastomosis status; E78.00 Pure hypercholesterolemia, unspecified; E11.65 Type 2 diabetes mellitus with hyperglycemia; Z79.4 Long term (current) use of insulin; Z79.899 Other long term (current) drug therapy; Z88.8 Allergy status to other drugs, medicaments and biological substances; Z79.891 Long term (current) use of opiate analgesic; Z90.49 Acquired absence of other specified parts of digestive tract; Z86.19 Personal history of other infectious and parasitic diseases
CPT/HCPCS: 43249; 82947; C1726; J3300

== ENCOUNTER 2021-09-28 10:58 | Outpatient (REF) | payer MEDICARE, SELFPAY ==
--- NOTE | ~2021-09-28 | PE_ITS ---
EXAMINATION: Fluorine-18 FDG PET/CT Scan CLINICAL INDICATION: Subsequent treatment management. Gastric cancer, restaging. PROCEDURE: 58 minutes following the intravenous administration of 15.0 mCi of fluorine 18 FDG, images from the base of the skull to the mid thighs were obtained using a combined PET/CT scanner with CT scan based attenuation correction. No oral contrast was administered. No intravenous contrast was administered. Transverse, coronal, sagittal, and volume reconstruction projections were obtained. The patient's blood glucose as determined by a finger stick, was 41 mg/dl immediately prior to injection. Total CT exam dose-length product 214.56 mGy-cm * These CT images were obtained using dose optimization techniques as appropriate, variously including the following: Automated exposure control * Adjustment of mA and/or kV according to patient size (this includes techniques or standardized protocols for targeted exams where dose is matched to indication/reason for exam; i.e. extremities or head) * Use of iterative reconstruction technique COMPARISON: The previous PET CT scan dated 05/19/2020 is available for comparison. The diagnostic CT scan of the chest, abdomen, and pelvis, dated 07/12/2021, is available for comparison. FINDINGS: (Slice numbers described in this report are numbered superiorly to inferiorly with slice #1 in the head) NECK AND VISUALIZED HEAD: There is a focus of moderately increased FDG activity present in the right anterior lateral aspect of the tongue, SUVmax 6.3, slice 26/267, with no corresponding CT abnormality. There are no additional foci of abnormal FDG activity in the neck or visualized head. All the other activity appears physiological. There is no cervical lymphadenopathy. Some mucosal thickening is present in both maxillary sinuses with no associated abnormal FDG activity. THORAX: There are no foci of abnormal FDG activity. No pulmonary nodules are visualized. There is no pleural or pericardial fluid or pneumothorax. There is no mediastinal, supraclavicular, or axillary lymphadenopathy. A left-sided chest port with internal jugular catheter terminating in the superior vena cava is noted. This was not present on the 05/19/2020 prior PET/CT scan but was present on the more recent 07/12/2021 CT scan. There are postsurgical changes at the gastroesophageal junction with no associated abnormal FDG activity, and these were not present on 05/19/2020, but were present 07/12/2021. ABDOMEN AND PELVIS: There is diffuse FDG activity of varying intensities throughout the gastrointestinal tract, without a suspicious focal component and probably physiological. There is some diverticulosis without evidence of diverticulitis. The hollow viscera are otherwise unremarkable. The liver and spleen are unremarkable. The gallbladder has been resected and there are multiple metallic surgical clips present in the gallbladder bed. Additional calyx sutures are present in the left upper quadrant, with no suspicious foci of FDG activity associated with any of the suture lines. The kidneys, adrenal glands, and pancreas are unremarkable. The pelvic organs are unremarkable. There is no retroperitoneal, mesenteric, pelvic or inguinal lymphadenopathy. MUSCULOSKELETAL: There is diffusely increased activity in the bone marrow, likely due to bone marrow stimulating chemotherapy such as Neulasta. This is homogeneous without a suspicious focal component. There are no suspicious sclerotic or lytic lesions present. VASCULAR: Diffuse vascular calcifications including coronary are noted. PET/PET CT fusion skull to thigh IMPRESSION: 1. There is a focus of increased FDG activity in the right anterior aspect of the tongue with no associated CT abnormality. The finding is nonspecific, but was not present on the prior PET CT scan. This could be physiological muscular activity in the tongue, but the asymmetry and intensity is suspicious for a lesion at this site. Correlation with direct visualization is recommended for initial follow-up. This could also be further characterized with IV contrast enhanced CT scan of the neck soft tissues. 2. No other abnormalities suspicious for metastatic or other malignant lesions are noted. 3. Diffuse vascular calcifications including coronary.
== END 2021-09-28 10:59 | disposition home or self-care (01) ==
LOC: HO.PET 10:58
PROVIDERS: PCP Internal Medicine; Visit Provider Internal Medicine Medical Oncology
DX: Z13.89 Encounter for screening for other disorder (principal)

== ENCOUNTER → 2021-10-22 10:02 | Outpatient (BNVA) | payer MEDICARE, SELFPAY | PROVIDERS: PCP Internal Medicine; Visit Provider Internal Medicine Gastroenterology | DX: K14.0 Glossitis (principal); C16.9 Malignant neoplasm of stomach, unspecified; Z90.3 Acquired absence of stomach [part of] | CPT/HCPCS: 99212 ==

== ENCOUNTER 2022-02-16 15:39 | Inpatient (IN) | payer MEDICARE, SELFPAY ==
--- NOTE | ~2022-02-16 | FL_ITS ---
EXAMINATION: XR UPPER GI SERIES WITH SMALL BOWEL CLINICAL INFORMATION: SBO. COMPARISON: None. TECHNIQUE: Routine upper GI Gastrografin study was performed. Initially KUB was performed. FINDINGS: Initial KUB reveals minimal scattered stool in the left colon. There is an enteric tube in the proximal stomach. There are surgical amber in the right upper quadrant, likely from cholecystectomy and gastrectomy. There is a radiopaque metallic pin along the right mid abdomen, but its exact position is not known. Following oral administration of 50-50 dilution of Gastrografin there is normal propagation of bolus from the oral cavity through the pharynx, esophagus, into stomach without obstruction, narrowing or stricture. There is a total gastrectomy with esophageal small bowel end-to-side anastomosis. The tip of enteric tube appears to be in the distal esophagus. There is normal progression of Gastrografin through the proximal small bowel to the ileocecal junction by 30 minutes. No obstruction, narrowing or stricture seen. Visualized ascending colon is normal caliber. FLUOROSCOPY TIME: 4.3 minutes DOSE AREA PRODUCT: 31.357 uGy-m2 (microgray-meter squared) FL/FL upper GI small bowel IMPRESSION: KUB reveals a radiopaque pin anteverted L-shaped in the right mid abdomen. Its location is not known. There is enteric tube in the distal esophagus. Total gastrectomy changes are present. The esophagus appears widely patent. The end-to-side anastomosis of esophagus to small bowel is patent. There is normal progression of small bowel by 30 minutes to ileocecal junction. No obstruction, narrowing or stricture seen.
--- NOTE | ~2022-02-16 | CT_ITS ---
EXAMINATION: CT ABDOMEN AND PELVIS WITH CONTRAST CLINICAL INFORMATION: Reason for Exam COMPARISON: 07/12/2021 TECHNIQUE: Multidetector volumetric imaging was performed from the superior aspect of the liver through the pubic symphysis following administration of 100 mL Omnipaque 300 intravenous contrast. Sagittal and coronal reformatted images were obtained on the technologist workstation.. This CT examination was performed using dose optimization techniques as appropriate, variously including the following: *Automated exposure control *Adjustment of mA and/or kV according to patient size (this includes techniques or standardized protocols for targeted exams where dose is matched to indication/reason for exam; i.e. extremities or head) *Use of iterative reconstruction technique DLP: 327 mGy-cm FINDINGS: LUNG BASES: The visualized lung bases are unremarkable. Fluid is seen within the visualized distal esophagus LIVER, GALLBLADDER, AND BILIARY TREE: The liver is normal in size, shape, and attenuation. No focal hepatic lesion or biliary ductal dilatation is present. The gallbladder surgically absent. PANCREAS: Unremarkable. SPLEEN: Unremarkable. ADRENAL GLANDS: Mild fullness to the left adrenal gland but no discrete nodule KIDNEYS AND URETERS: The kidneys are normal in size, shape, and attenuation. No hydronephrosis, hydroureter, or calculi seen. No perinephric stranding. BLADDER: Unremarkable. GASTROINTESTINAL TRACT: Stool and air seen within the colon. Few scattered colonic diverticula are noted. I do not appreciate any colonic wall thickening or pericolonic inflammatory changes. Examination of the small bowel demonstrates a focal dilatation and small bowel stool in the proximal jejunum with a focal transition point in the left midabdomen near small bowel anastomotic staple line. Small bowel distal to this area is decompressed and postoperative changes in the stomach likely related to prior gastrectomy. ABDOMINAL WALL: No significant hernia is appreciated. LYMPHOVASCULAR STRUCTURES: No lymphadenopathy. The aorta is unremarkable. PELVIC VISCERA: Small fundal fibroid incidentally noted. Small volume of ascites in the dependent abdomen OSSEOUS STRUCTURES: Unremarkable. CT/CT abdomen pelvis w IV con IMPRESSION: Status post gastrectomy. There is dilatation to the proximal jejunal loops with small bowel stool up to a focal transition point in the region of small bowel anastomotic staple line in the left midabdomen. Bowel distal to this area is decompressed. Appearance would be consistent with an early or partial small bowel obstruction with stool and air still seen within the colon.
--- NOTE | ~2022-02-16 | XR_ITS ---
EXAMINATION: XR CHEST CLINICAL INFORMATION: Post NG tube COMPARISON: 07/12/2021 TECHNIQUE: Frontal view of the chest was obtained. FINDINGS: Enteric tube tip lies approximately 3 cm below the level of the hiatus. Left IJ port catheter tip lies in the region of the cavoatrial junction. Lung volumes are symmetric. No focal consolidation is seen. No evidence of pneumothorax, pleural effusion, or pulmonary edema. The cardiomediastinal contour is unremarkable. Excreted contrast material noted in the pelvicalyceal systems. No acute osseous findings are seen. XR/XR chest 1V IMPRESSION: Enteric tube tip extends approximately 3 cm below the level of the hiatus.
[2022-02-16 16:57] VITALS: BP 150/70; PULSE 72; RESP 16; TEMP 36.2; O2SAT 99; BMI 23.2
[2022-02-16 17:22] LABS: MANUAL DIFF FLAG NO
[2022-02-16 17:34] LABS: Basophils Percent Auto 0.2 % (0-2); Eosinophils Percent Auto 0.7 % (0-4); Hematocrit 37.6 % (37.0-47.0); Hemoglobin 12.4 g/dl (12.0-16.0); Imm Gran Abs Auto 0.02 X10*3/uL (0.00-0.03); Imm Gran Pct Auto 0.3 % (0.0-0.4); Lymphocytes Absolute Auto 1.1 X10*3/uL (1.2-4.9); Lymphocytes Percent Auto 17.9 % (20-40); Mean Corpuscular Hemoglobin 31.2 pg (27.0-33.0); Mean Corpuscular Volume 94.7 fL (80.0-98.0); Mean Platelet Volume 9.9 fL (9.4-12.3); Monocytes Absolute Auto 0.4 X10*3/uL (0.1-1.2); Monocytes Percent Auto 5.8 % (2-11); Neutrophils Absolute Auto 4.5 x10*3/uL (2.0-8.3); Neutrophils Percent Auto 75.1 % (45-73); Platelet Count 151 X10*3/uL (160-400); Red Blood Count 3.97 X10*6/uL (4.20-5.50); Red Cell Distribution Width 13.4 % (11.0-16.0)
[2022-02-16 17:42] LABS: Alanine Aminotransferase 17 U/L (0-31); Albumin Level 4.6 g/dL (3.5-5.0); Alkaline Phosphatase 123 U/L (39-117); Anion Gap 16 (12-20); Aspartate Amino Transferase 26 U/L (5-31); Bilirubin Total 0.7 mg/dL (0.0-1.0); Blood Urea Nitrogen 10 mg/dL (9-16); Calcium 9.9 mg/dL (8.4-10.2); Carbon Dioxide 30 mmol/L (22-29); Chloride 100 mmol/L (96-108); Creatinine Clr Calc Pharmacy 55.2; Estimated Glomerular Filt Rate > 60; Glucose Random 148 mg/dL (60-115); Lipase 9 U/L (8-78); Potassium 4.1 mmol/L (3.3-5.1); Sodium 142 mmol/L (135-145); Total Protein 7.1 g/dL (6.5-8.0)
--- NOTE | 2022-02-16 20:21 | ED_ITS ---
HPI - Abdominal Pain General Chief Complaint: Abdominal Pain Stated Complaint: Abdominal Pain Vomiting Time Seen by Provider: 02/16/22 20:01 Source: patient and family () Mode of arrival: ambulatory Limitations: no limitations History of Present Illness HPI narrative: 66-year-old female who presents emergency department for evaluation of abdominal pain and vomiting. The patient was diagnosed with stomach cancer 12/25/2020, she has had a gastrectomy and is receiving chemotherapy. She states that yesterday at 19:00 hours she developed a cramping sensation. She points to her umbilical area when asked to localize this pain. She states that the pain was 10/10. The pain was constant but waxes and wanes in intensity. The patient states that she had nausea and vomiting and after vomiting she did feel better. She states she took off code own but was not able to hold down secondary to vomiting. She states that she finally fell asleep at around 01:00 hours when she woke up this morning she continued to have abdominal pain and again tried to taking oxycodone but was able to hold down she states that her pain at the time of my evaluation was 6/10. Patient states that she has a bowel movement daily. Her last bowel movement was yesterday and she had no bowel movement today. Patient states that she has been having dysphagia and has had balloon dilatation of her esophagus twice in the past. She does not feel like food is stuck in her esophagus at this time but she believes that her esophagus getting narrow and needs to be dilated again. MD elicited complaint: abdominal pain Pertinent past history: other (Stomach cancer 12/2020, gastrectomy) Onset (ago): day(s) (2) Pain Consistency: constant (Waxes and wanes in intensity) Location: periumbilical Severity: severe Pain scale (0-10): 10 Quality: cramping Radiation: none Exacerbating factors: eating Relieving factors: nothing Associated symptoms: nausea and vomiting Related Data Home Medications Medication Instructions Recorded Confirmed multivitamin 1 tab PO DAILY 05/11/20 02/04/22 sucralfate 1 gram tablet 1 tab PO TID 11/05/21 02/04/22 Previous Rx's Medication Instructions Recorded pen needle, diabetic 31 gauge x #100 ea 06/15/2016 (BD Ultra-Fine Mini Pen Needle) insulin glargine 100 unit/mL (3 12 unit (0.12 mL) subcut QPM #15 mL 11/20/20 mL) subcutaneous pen (Lantus Solostar U-100 Insulin) pegfilgrastim-cbqv 6 mg/0.6 mL 6 mg (0.6 mL) subcut Q7D #4 mL 04/22/21 subcutaneous syringe (Udenyca) ondansetron 8 mg disintegrating 8 mg PO Q8H #60 tabs 07/15/21 tablet flash glucose scanning reader #1 ea 09/22/21 (FreeStyle Michele 14 Day [place]) zinc gluconate 50 mg tablet 50 mg PO DAILY #90 tabs 10/22/21 oxycodone 5 mg capsule 5 mg PO Q6H PRN Breakthrough Pain, 11/05/21 Moderate #60 caps oxycodone 5 mg tablet 5 mg PO Q6H PRN Breakthrough Pain, 02/04/22 Mild #60 tabs Allergies Allergy/AdvReac Type Severity Reaction Status Date / Time meperidine [From Demerol] Allergy Severe Swelling Verified 02/04/22 10:49 Review of Systems Review of Systems Yes all other systems are reviewed and are negative [facility] Past Medical History [facility] Narrative: Social history: Patient lives with her who is here in the emergency department with her. She denies tobacco, alcohol and drug use. Medical History History of cellulitis Hx of diverticulitis of colon Hypercholesterolemia Lab test negative for COVID-19 virus Type 2 diabetes mellitus with hyperglycemia Surgical History H/O tubal ligation History of esophagogastroduodenoscopy (EGD) History of gastrectomy Hx of appendectomy Hx of colonoscopy Hx of tonsillectomy S/P cholecystectomy (~1988) S/P right knee arthroscopy (~2002) Family History Family History Father Pancreatic cancer Mother NHL (non-Hodgkin's lymphoma) Maternal Grandfather Prostate cancer Maternal Grandmother Diabetes Heart disease Paternal Grandfather Diabetes Son Asthma Social History Social History Household Members: Spouse and Children Housing: House Are you a primary home care assistant to a significant other at home: No Do you presently have visiting nurse or other home services: No Alcohol intake: current Alcohol intake frequency: does not drink Patient Tobacco Use Status: Never used Tobacco Second Hand Smoke Exposure: No Advance Directives: No Advance Directives Information Provided: No service: No Current occupational status: unemployed and previously employed 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 Physical Exam ED Vital Signs: Vital Signs - 24 hr 02/16/22 16:57 Temperature 97.1 F Pulse Rate 72 Respiratory Rate 16 Blood Pressure 150/70 H Pulse Oximetry 99 Oxygen Delivery Method Room Air BMI result Body Mass Index 23.2 Const General: cooperative and no acute distress Orientation/consciousness: oriented to person and oriented to place Limitations: no limitations HENMT Head: Yes normal to inspection, Yes normocephalic and Yes atraumatic Ears: external ears normal General nose exam: Normal external nose present Face and sinus: Yes normal facial exam Mouth: Normal oral and palatal mucosa present Throat: Yes posterior oropharynx normal Eyes General: appearance normal, both eyes and all related structures Pupils: Equal, round and reactive pupils present Neck Neck: Yes normal visual inspection, Yes no lymphadenopathy, Yes trachea midline and Yes supple Chest Chest palpation & inspection: normal inspection of the chest and normal palpation of entire chest wall Resp Effort & Inspection: normal respiratory effort and able to speak in complete sentences Auscultation: clear to auscultation bilaterally Cardio Rate: regular rate Rhythm: regular rhythm Heart sounds: S1 normal heart sound present, S2 normal heart sound present and no murmurs GI Inspection: Yes normal to inspection Palpation (GI): Soft to palpation, Tenderness to palpation present (GI) in the epigastrum ([id number]) and periumbilically (Moderate) and no guarding Auscultation: Hyperactive bowel sounds present General: Yes no CVA tenderness Back/Spine/Pelvis Back: no CVA tenderness Skin General skin exam: no rashes or lesions noted Neuro General: oriented to person and oriented to place Cranial nerves: Yes CN's II-XII intact bilaterally and Yes Equal, round and reactive pupils present Cognition (Neuro): normal cognition Motor exam (neuro): 5/5 motor strength present throughout Extrem General: Yes normal to inspection Psych Appearance: grossly normal Speech and movement: Normal speech and movement present Affect: normal affect Attitude: cooperative Thought process: Normal thought process present Thought content: Normal thought content present Course Course Course Narrative: 66-year-old female with a history of gastric cancer diagnosed December 2020 status post gastrectomy who presents emergency department for evaluation of constant, cramp like abdominal pain x2 days associated with nausea and vomiting . Patient had a bowel movement yesterday but no bowel movement today. Patient's pain was severe and was 10/10. Vital signs revealed an elevated blood pressure of 150/70 otherwise were unremarkable. Patient's examination did reveal periumbilical and epigastric tenderness with hyperactive bowel sounds. At this time a concerned the patient may have a partial bowel obstruction as the cause of her symptoms. Laboratory evaluation was ordered from triage. I ordered a CT scan of the abdomen pelvis with IV contrast. Patient will be treated with morphine 4 mg IV, Zofran 4 mg IV and normal saline x1 L. Laboratory evaluation: WBC normal 6000 glucose elevated 148. CO2 elevated 30. Alk-phos elevated 123. 2131: At the end of my shift, the patient's CT scan of the abdomen pelvis reading is pending. The patient has just been medicated with the above medications. The patient's care was turned over to my colleague, Dr. Darya Keene. MDM - Abdominal Pain Lab Data Result diagrams: 02/16/22 17:18 02/16/22 17:18 Labs: Lab Results 02/16/22 02/16/22 Range/Units 17:18 17:18 WBC 6.0 (4.8-10.8) X10*3/uL RBC 3.97 L (4.20-5.50) X10*6/uL Hgb 12.4 D (12.0-16.0) g/dl Hct 37.6 (37.0-47.0) % MCV 94.7 (80.0-98.0) fL MCH 31.2 (27.0-33.0) pg MCHC 33.0 (31.0-35.0) g/dl RDW 13.4 (11.0-16.0) % Plt Count 151 L (160-400) X10*3/uL MPV 9.9 (9.4-12.3) fL Immature Gran % (Auto) 0.3 (0.0-0.4) % Neut % (Auto) 75.1 H (45-73) % Lymph % (Auto) 17.9 L (20-40) % [place] % (Auto) 5.8 (2-11) % Eos % (Auto) 0.7 (0-4) % Baso % (Auto) 0.2 (0-2) % Lymph # (Auto) 1.1 L (1.2-4.9) X10*3/uL [place] # (Auto) 0.4 (0.1-1.2) X10*3/uL Eos # (Auto) 0.0 (0.0-0.4) X10*3/uL Baso # (Auto) 0.0 (0.0-0.2) X10*3/uL Abs Immat Gran (auto) 0.02 (0.00-0.03) X10*3/uL Absolute Neuts (auto) 4.5 (2.0-8.3) x10*3/uL Absolute Nucleated RBC 0.000 (0.0-0.012) X10*3/uL Nucleated RBC % (auto) 0.0 (0.0-0.2) /100WBC Sodium 142 (135-145) mmol/L Potassium 4.1 (3.3-5.1) mmol/L Chloride 100 (96-108) mmol/L Carbon Dioxide 30 H (22-29) mmol/L Anion Gap 16 (12-20) BUN 10 (9-16) mg/dL Creatinine 0.72 (0.5-1.4) mg/dL Estim Creat Clear Calc 55.2 Estimated GFR > 60 Random Glucose 148 H (60-115) mg/dL Calcium 9.9 D (8.4-10.2) mg/dL Total Bilirubin 0.7 (0.0-1.0) mg/dL Direct Bilirubin 0.3 (0.0-0.5) mg/dL AST 26 (5-31) U/L ALT 17 (0-31) U/L Alkaline Phosphatase 123 H D (39-117) U/L Total Protein 7.1 (6.5-8.0) g/dL Albumin 4.6 (3.5-5.0) g/dL Lipase 9 (8-78) U/L Discharge Plan Discharge Clinical Impression: Abdominal pain, Nausea & vomiting Patient Disposition: Still a Patient Prescriptions: No Action Sptus Malloryostar U-100 Insulin 100 unit/mL (3 mL) insulin pen 12 unit subcut QPM Qty: 15 1RF (DME) FreeStyle Michele 14 Day [place] Misc See Rx Instructions .ROUTE .MEDSUPPLY Qty: 1 0RF Rx Instructions: As directed multivitamin Tablet 1 tab PO DAILY Udenyca 6 mg/0.6 mL Syringe 6 mg SUBCUT Q7D Qty: 4 6RF ondansetron 8 mg Tablet,Disintegrating 8 mg PO Q8H Qty: 60 4RF sucralfate 1 gram tablet 1 tab PO TID oxycodone 5 mg Capsule 5 mg PO Q6H PRN (Reason: Breakthrough Pain, Moderate) Qty: 60 0RF oxycodone 5 mg Tablet 5 mg PO Q6H PRN (Reason: Breakthrough Pain, Mild) Qty: 60 0RF Rx Instructions: Partial Fill upon patient request. (DME) pen needle, diabetic [BD Ultra-Fine Mini Pen Needle] 31 gauge x 3/16 needle See Rx Instructions .ROUTE .MEDSUPPLY Qty: 100 3RF Rx Instructions: As directed Inject 10 U lantus QD zinc gluconate 50 mg tablet 50 mg PO DAILY Qty: 90 0RF
[2022-02-16 20:44] LABS: Bilirubin Direct 0.3 mg/dL (0.0-0.5)
[2022-02-16] MEDS: 0.9 % Sodium Chloride 1,000 ML 999 ML IV (21:01)
[2022-02-16] MEDS: Morphine Sulfate 4 MG/ML CARTRIDGE IVPUSH (21:01)
[2022-02-16] MEDS: ondansetron HCL 4 MG/2 ML VIAL IVPUSH (21:01)
[2022-02-16] MEDS: iohexoL 350 MG/ML 100 ML INFUS..BTL IV (21:21)
[2022-02-16 23:53] VITALS: BP 123/61; PULSE 72; RESP 16; O2SAT 98
[2022-02-17] MEDS: Enoxaparin Sodium 40 MG/0.4 ML SYRINGE SUBCUT (00:55)
[2022-02-17] MEDS: 0.9 % Sodium Chloride 1,000 ML 100 ML IVCONT ×2 (00:55→10:10)
[2022-02-17] MEDS: Morphine Sulfate 4 MG/ML CARTRIDGE IVPUSH ×2 (01:08→18:08)
[2022-02-17 01:19] VITALS: BP 124/54; PULSE 65; RESP 16; O2SAT 95
--- NOTE | 2022-02-17 01:35 | PC.NURSE ---
Patient alert and oriented x 3. vital signs stable. Patient c/o abdominal pain medicated with morphine with some relief. Patient has a portacath that this RN accessed with power port. Patient also needed an NG tube placed a 16 Fr to low wall suction with light brown vomit noted. X-ray confirmed placement. Patient tolerated procedure well. Will continue to monitor.
[2022-02-17 05:33] LABS: Anion Gap 13 (12-20); Blood Urea Nitrogen 9 mg/dL (9-16); Calcium 8.6 mg/dL (8.4-10.2); Carbon Dioxide 27 mmol/L (22-29); Chloride 104 mmol/L (96-108); Estimated Glomerular Filt Rate > 60; Glucose Random 81 mg/dL (60-115); Magnesium 1.9 mg/dL (1.6-2.6); Potassium 3.4 mmol/L (3.3-5.1); Sodium 141 mmol/L (135-145)
--- NOTE | 2022-02-17 07:29 | PHA.MEDREC ---
Pharmacy Consult ? Medication Reconciliation Pharmacy has completed the medication reconciliation. Checked med rec done overnight
[2022-02-17 07:47] VITALS: BP 132/57; PULSE 68; RESP 14; O2SAT 100
--- NOTE | 2022-02-17 07:56 | PC.NURSE ---
Pt is alert/oriented. NG tube to right nare, minimal output approx 50ml in canister of brown frothy contents. Intermittent suction continues. Pt reports feeling better pain 3/10 at this time. VSS. Up to bedside commode to void. Skin pwd. NS infusing at 100ml/hr via left chest port
--- NOTE | 2022-02-17 08:27 | P.HPGS_ITS ---
History of Present Illness History of Present Illness Date of Service: 02/17/22 <Debra Mistry PA-C - Last Filed: 02/17/22 09:31> 02/18/22 <Andrew Mao MD - Last Filed: 02/18/22 16:14> Chief complaint: Abdominal Pain Vomiting <Debra Mistry PA-C - Last Filed: 02/17/22 09:31> Narrative: Sheryl Espinoza is a 66 year old female who presents to the ED with vomiting. She has an extensive medical history significant for gastric CA s/p gastrectomy lymphadenectomy and omentectomy, Melyssa-en-Y reconstruction with end-to-side esophagojejunostomy (retro colic) in 12/26 and is further being managed by Dr. Cisneros and undergoing chemotherapy (currently on hold). She has had two EGDs with dilatation for dysphagia, last 09/26, with improvement in her symptoms. No recurrent CA on biopsies 06/29 endoscopy. She comes in with c/o umbilical pain that started Monday. The pain is crampy in nature. She then began vomiting. She denies flatus or BM since Monday morning. She denies fever, chills, diarrhea, coffee ground emesis, hematemesis. Work up in the ED included a CT scan which showed focal dilatation of the small bowel in the proximal jejunum with a focal transition point in the left midabdomen near small bowel anastomotic staple line with distal small bowel decompressed and air in the colon. CBC, BMP all WNL. An NGT was inserted in the ED and admission to the surgical service requested. She reports feeling a little better with improvement in her pain since NGT insertion. She also reports that she has had difficulty and painful swallowing since November. She saw Dr. Cisneros at the end of January who referred her back to GI for repeat endoscopy. <Debra Mistry PA-C - Last Filed: 02/17/22 09:31> Review of Systems Constitutional: Constitutional: Denies chills, Denies fever(s) and Denies weight loss <GREGORY Robison Last Filed: 02/17/22 09:31> ENT: Denies dizziness <GREGORY Robison Last Filed: 02/17/22 09:31> Cardiovascular: Cardiovascular: Denies chest pain, Denies palpitations and Denies dyspnea <Debra Mistry PA-C - Last Filed: 02/17/22 09:31> Respiratory: Respiratory: Denies cough and Denies dyspnea <Debra Mistry PA-C - Last Filed: 02/17/22 09:31> Gastrointestinal: Gastrointestinal: Reports as per HPI, Denies melena, Denies bloating, Denies hematochezia and Denies diarrhea <Debra Mistry PA-C - Last Filed: 02/17/22 09:31> Genitourinary: Genitourinary: Denies hematuria and Denies dysuria <Debra Mistry PA-C - Last Filed: 02/17/22 09:31> Musculoskeletal: Musculoskeletal: Denies numbness <JUAN Robison - Last Filed: 02/17/22 09:31> Integumentary/Breasts: Skin/Breast: Denies rash <Debra Mistry PA-C - Last Filed: 02/17/22 09:31> Neurologic: Denies dizziness and Denies numbness <Debra Mistry PA-C - Last Filed: 02/17/22 09:31> Endocrine: Endocrine: Denies palpitations <Debra Mistry PA-C - Last Filed: 02/17/22 09:31> PMFSH Past Medical History Medical History: Medical History History of cellulitis Hx of diverticulitis of colon Hypercholesterolemia Lab test negative for COVID-19 virus Type 2 diabetes mellitus with hyperglycemia <GREGORY Robison Last Filed: 02/17/22 09:31> Family History Family History: Family History Father Pancreatic cancer Mother NHL (non-Hodgkin's lymphoma) Maternal Grandfather Prostate cancer Maternal Grandmother Diabetes Heart disease Paternal Grandfather Diabetes Son Asthma <GREGORY Robison Last Filed: 02/17/22 09:31> Surgical History Surgical History: Surgical History H/O tubal ligation History of esophagogastroduodenoscopy (EGD) History of gastrectomy Hx of appendectomy Hx of colonoscopy Hx of tonsillectomy S/P cholecystectomy (~1988) S/P right knee arthroscopy (~2002) <Debra Mistry PA-C - Last Filed: 02/17/22 09:31> Social History Social History: Social History Household Members: Spouse Housing: House Are you a primary pharmacy care coordinator to a significant other at home: No Do you presently have visiting nurse or other home services: No Alcohol intake: current Alcohol intake frequency: does not drink Patient Tobacco Use Status: Never used Tobacco Second Hand Smoke Exposure: No service: No Current occupational status: unemployed and previously employed 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 <Debra Mistry PA-C - Last Filed: 02/17/22 09:31> Meds Allergies/Adverse reactions: Allergies Allergy/AdvReac Type Severity Reaction Status Date / Time meperidine [From Demerol] Allergy Severe Swelling Verified 02/04/22 10:49 <Debra Mistry PA-C - Last Filed: 02/17/22 09:31> Active Medications: Current Medications Enoxaparin Sodium (Enoxaparin Sodium 40 Mg/0.4 Ml Syringe) 40 mg SUBCUT Q24H COUNT INCLUDES THE [facility] Last Admin: 02/17/22 00:55 Dose: 40 mg Sodium Chloride (Ns) 1,000 mls @ 100 mls/hr IVCONT .Q10H COUNT INCLUDES THE [facility] Last Admin: 02/17/22 00:55 Dose: 100 mls/hr Morphine Sulfate (Morphine Sulfate 4 Mg/Ml Cartridge) 4 mg IVPUSH Q4H PRN; Protocol PRN Reason: Pain, Severe (Pain Scale 7-10) Last Admin: 02/17/22 01:08 Dose: 4 mg Ondansetron HCl (Ondansetron Hcl 4 Mg/2 Ml Vial) 4 mg IVPUSH Q8H PRN PRN Reason: Nausea and Vomiting Sodium Chloride (0.9 % Sodium Chloride Flush 3 Ml Syringe) 3 ml IVFLUSH QSHIFT COUNT INCLUDES THE [facility] Last Admin: 02/17/22 07:45 Dose: Not Given <GREGORY Robison Last Filed: 02/17/22 09:31> Home medications: Home Medications Medication Instructions Recorded Confirmed Last Taken Type multivitamin 1 tab PO DAILY 05/11/20 02/17/22 Unknown History famotidine 20 mg tablet 1 tab PO DAILY 02/17/22 02/17/22 Unknown History insulin glargine 100 unit/mL (3 10 unit subcut QPM 02/17/22 02/17/22 Unknown History mL) subcutaneous pen (Lantus Solostar U-100 Insulin) sucralfate 1 gram tablet 1 tab PO TID 02/17/22 02/17/22 Unknown History <GREGORY Robison Last Filed: 02/17/22 09:31> Physical Exam Vital Signs: Vital Signs: Last Vital Signs Temp 97.1 F 02/16/22 16:57 Pulse 68 02/17/22 07:47 Resp 14 02/17/22 07:47 BP 132/57 L 02/17/22 07:47 Pulse Ox 100 02/17/22 07:47 O2 Del Method 02/17/22 07:47 BMI result Body Mass Index 23.2 <GREGORY Robison Last Filed: 02/17/22 09:31> Const: General: comfortable, no acute distress and alert <GREGORY Robison Last Filed: 02/17/22 09:31> Orientation/consciousness: patient oriented x3 <GREGORY Robison Last Filed: 02/17/22 09:31> HEENT: Other: NGT in place <GREGORY Robison Last Filed: 02/17/22 09:31> Resp: Effort & Inspection: normal respiratory effort <GREGORY Robison Last Filed: 02/17/22 09:31> Cardio: Rate: regular rate <GREGORY Robison Last Filed: 02/17/22 09:31> GI: Inspection: Yes distended (mild) and Yes scar (midline from xyphoid to umbilicus, multiple small scars RUQ) <GREGORY Robison Last Filed: 02/17/22 09:31> Palpation (GI): Soft to palpation, Tenderness to palpation present (GI) (left site) periumbilically; with no rebound tenderness, no guarding and not rigid <GREGORY Robison Last Filed: 02/17/22 09:31> Percussion: Yes tympanic to percussion <GREGORY Robison Last Filed: 02/17/22 09:31> Skin: General skin exam: no rashes or lesions noted <GREGORY Robison Last Filed: 02/17/22 09:31> Neuro: General: patient oriented x3 and moves all extremities <GREGORY Robison Last Filed: 02/17/22 09:31> Extrem: General: Yes no clubbing, cyanosis or edema <GREGORY Robison Last Filed: 02/17/22 09:31> Results Results Labs: Short CBC 02/16/22 Range/Units 17:18 WBC 6.0 (4.8-10.8) X10*3/uL Hgb 12.4 D (12.0-16.0) g/dl Hct 37.6 (37.0-47.0) % Plt Count 151 L (160-400) X10*3/uL BMP 02/16/22 02/17/22 17:18 04:59 Sodium 142 141 Potassium 4.1 3.4 Chloride 100 104 Carbon Dioxide 30 H 27 BUN 10 9 Creatinine 0.72 0.56 Calcium 9.9 D 8.6 D Liver Function 02/16/22 Range/Units 17:18 Total Bilirubin 0.7 (0.0-1.0) mg/dL Direct Bilirubin 0.3 (0.0-0.5) mg/dL AST 26 (5-31) U/L ALT 17 (0-31) U/L Alkaline Phosphatase 123 H D (39-117) U/L Albumin 4.6 (3.5-5.0) g/dL <GREGORY Robison Last Filed: 02/17/22 09:31> Assessment and Plan (1) Gastric cancer: Qualifiers: Malignant neoplasm of stomach location: unspecified location Qualified Code(s): C16.9 - Malignant neoplasm of stomach, unspecified <Debra Mistry PA-C - Last Filed: 02/17/22 09:31> Status: Acute <Debra Mistry PA-C - Last Filed: 02/17/22 09:31> (2) Partial bowel obstruction: Status: Acute <Debra Mistry PA-C - Last Filed: 02/17/22 09:31> History reviewed - had total gastrectomy with the Melyssa limb in 2019 for gastric cancer Had abdominal pain yesterday CT scan suggests partial small-bowel obstruction in the mid abdomen She says that she feels better this morning, much less pain Abdomen soft, some tenderness in the left side, no guarding rebound NG tube in place - actually into the jejunum past the esophago jejunal anastomosis Transition point seems to be near the Melyssa limb anastomosis Okay to proceed with contrast study with Gastrografin Exam otherwise benign Patient being seen by Dr. Cisneros of Oncology as well Patient undergoes a dilation of the esophago-jejunal anastomosis with Dr. Kay Explained to the patient above Seen and examined independently Agree with KELLIE Mistry <Andrew Mao MD - Last Filed: 02/18/22 16:14> (3) History of gastrectomy: Status: Acute <Debra Mistry PA-C - Last Filed: 02/17/22 09:31> Sheryl Espinoza is a 66 year old female with gastric CA s/p gastrectomy lymphadenectomy and omentectomy, Melyssa-en-Y reconstruction with end-to-side esophagojejunostomy (retro colic) in 12/26 who presents with abdominal pain, vomiting and obstipation with CT scan showing dilated SB loops with transition point in the left midabdomen. History consistent with SBO, likely partial given air in colon. She was admitted to the surgical service for further treatment of the PSBO. An NGT was inserted in the ED with some improvement in symptoms. She is well appearing with a benign abdominal exam. Will continue NPO status, IVF, PRN IV analgesics and antiemetics. Encouraged OOB and to ambulate to stimulate GI function. Consider small bowel series with gastrograffin tomorrow if no further improvement. If she does not improve with supportive measures, transfer to [facility] may need to be considered as she may need revision of the Y limb anastomosis given the transition point is surrounding this. GI has also been consulted given her history and recurrent dysphagia symptoms for possible endoscopy/dilatation while she is here. Oncology has also been consulted. <Debra Mistry PA-C - Last Filed: 02/17/22 09:31> Quality Stroke Does the patient have a stroke diagnosis?: No <Debra Mistry PA-C - Last Filed: 02/17/22 09:31> VTE Prior VTE?: No <Debra Mistry PA-C - Last Filed: 02/17/22 09:31> VTE Risk Level:: Medical - moderate - high <GREGORY Robison Last Filed: 02/17/22 09:31> VTE Device Contraindication: N/A - Device Ordered <Debra Mistry PA-C - Last Filed: 02/17/22 09:31> VTE Drug Contraindication: N/A - Med Ordered <Debra Mistry PA-C - Last Filed: 02/17/22 09:31> Procedures Date of Service Date of Service: 02/17/22 <Debra Mistry PA-C - Last Filed: 02/17/22 09:31>
[2022-02-17] MEDS: Famotidine/PF 20 MG/2 ML VIAL IVPUSH (08:40)
[2022-02-17 09:22] VITALS: BP 134/63; PULSE 72; RESP 20; TEMP 36.8; O2SAT 97
--- NOTE | 2022-02-17 10:33 | PM.GICN ---
History of Present Illness Data of Consult Service Date: 02/17/22 Requesting physician: Debra Mistry Primary Care Provider: Zachary Clark MD [facility] Reason for consult: Anastomotic stricture This is a 66-year-old female with past medical history of gastric adenocarcinoma with omental involvement status post total gastrectomy with Melyssa-en-Y esophageal esophagojejunal retrocolic anastomosis and omentectomy 12/2020 (Dr Rajan, [facility] – [place]), on neoadjuvant FLOT chemotherapy (Dr Cisneros, [facility] – [place]), who presented to the hospital yesterday for abdominal pain, nausea and vomiting and is found to have partial small bowel obstruction. Gastroenterology has been consulted for possible small bowel anastomotic stricture causing the SBO. History was obtained from the patient who states that starting Monday, she started developing abdominal cramping that was 0 seated with decreased appetite. She threw up everything that she ate on Monday and Monday morning. And since then has not been able to tolerate any p.o. Denies any fevers, chills, shortness of breath. Has not passed any bowel movement or gas since Monday evening. Currently feels better with NGT in place. Of note, she also endorses a background of dysphagia that has been ongoing for a couple months. She has undergone balloon dilation of EJ anastomosis earlier this year with good effect. Recent endoscopy: EGD 09/2021: Tortuous esophagus. Fibrotic ring at EJ anastomosis status post balloon dilation with 19 mm CRE balloon. Status post balloon dilation to 18 mm in upper esophagus with heme noted. Normal afferent and efferent jejunal limbs. EGD 06/2021: Tortuous esophagus with increased tertiary contractions. Normal appearing anastomosis with 2 cm of columnar epithelium status post biopsy. Empiric dilation of EJ anastomosis with 18 mm CRE balloon. Normal afferent and efferent jejunal limbs. Path: Normal small bowel. Squamocolumnar mucosa with moderate chronic active inflammation. Review of Systems Review of Systems: Yes all other systems are reviewed and are negative PMFSH Past Medical History Medical History History of cellulitis Hx of diverticulitis of colon Hypercholesterolemia Lab test negative for COVID-19 virus Type 2 diabetes mellitus with hyperglycemia Family History Family History Father Pancreatic cancer Mother NHL (non-Hodgkin's lymphoma) Maternal Grandfather Prostate cancer Maternal Grandmother Diabetes Heart disease Paternal Grandfather Diabetes Son Asthma Surgical History Surgical History H/O tubal ligation History of esophagogastroduodenoscopy (EGD) History of gastrectomy Hx of appendectomy Hx of colonoscopy Hx of tonsillectomy S/P cholecystectomy (~1988) S/P right knee arthroscopy (~2002) Social History Social History Household Members: Spouse and Children Housing: House Are you a primary rn intensive care unit to a significant other at home: No Do you presently have visiting nurse or other home services: No Alcohol intake: current Alcohol intake frequency: does not drink Patient Tobacco Use Status: Never used Tobacco Second Hand Smoke Exposure: No Use of substances other than those prescribed or required for medical reasons: No Advance Directives: No Advance Directives Information Provided: No service: No Current occupational status: unemployed and previously employed 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 Allergy/AdvReac Type Severity Reaction Status Date / Time meperidine [From Demerol] Allergy Severe Swelling Verified 02/04/22 10:49 Active Medications: Current Medications Enoxaparin Sodium (Enoxaparin Sodium 40 Mg/0.4 Ml Syringe) 40 mg SUBCUT Q24H [facility] Last Admin: 02/17/22 00:55 Dose: 40 mg Famotidine (Famotidine/Pf 20 Mg/2 Ml Vial) 20 mg IVPUSH DAILY [facility] Last Admin: 02/17/22 08:40 Dose: 20 mg Sodium Chloride (Ns) 1,000 mls @ 100 mls/hr IVCONT .Q10H [facility] Last Admin: 02/17/22 10:10 Dose: 100 mls/hr Morphine Sulfate (Morphine Sulfate 4 Mg/Ml Cartridge) 4 mg IVPUSH Q4H PRN; Protocol PRN Reason: Pain, Severe (Pain Scale 7-10) Last Admin: 02/17/22 01:08 Dose: 4 mg Ondansetron HCl (Ondansetron Hcl 4 Mg/2 Ml Vial) 4 mg IVPUSH Q8H PRN PRN Reason: Nausea and Vomiting Sodium Chloride (0.9 % Sodium Chloride Flush 3 Ml Syringe) 3 ml IVFLUSH QSHIFT [facility] Last Admin: 02/17/22 07:45 Dose: Not Given Home Medications Medication Instructions Recorded Confirmed Last Taken Type multivitamin 1 tab PO DAILY 05/11/20 02/17/22 Unknown History famotidine 20 mg tablet 1 tab PO DAILY 02/17/22 02/17/22 Unknown History insulin glargine 100 unit/mL (3 10 unit subcut QPM 02/17/22 02/17/22 Unknown History mL) subcutaneous pen (Lantus Solostar U-100 Insulin) sucralfate 1 gram tablet 1 tab PO TID 02/17/22 02/17/22 Unknown History Physical Exam Vital Signs: Vital Signs: Last Vital Signs Temp 98.3 F 02/17/22 09:22 Pulse 72 02/17/22 09:22 Resp 20 02/17/22 09:22 BP 134/63 02/17/22 09:22 Pulse Ox 97 02/17/22 09:22 O2 Del Method 02/17/22 09:22 BMI result Body Mass Index 23.2 Gen appear: No acute distress, well nourished HEENT: NG in place, <100cc of drainage in cannister Chest: No overt resp distress CVS: S1/S2, regular Abd: soft, nontender, nondistended Psych: Stable affect, answering questions appropriately Neuro: A/Ox3 noted to move all extremities spontaneously Ext: no peripheral edema Results Labs CBC & Chem 7: 02/16/22 17:18 02/17/22 04:59 Labs: Short CBC 02/16/22 Range/Units 17:18 WBC 6.0 (4.8-10.8) X10*3/uL Hgb 12.4 D (12.0-16.0) g/dl Hct 37.6 (37.0-47.0) % Plt Count 151 L (160-400) X10*3/uL BMP 02/16/22 02/17/22 17:18 04:59 Sodium 142 141 Potassium 4.1 3.4 Chloride 100 104 Carbon Dioxide 30 H 27 BUN 10 9 Creatinine 0.72 0.56 Calcium 9.9 D 8.6 D Liver Function 02/16/22 Range/Units 17:18 Total Bilirubin 0.7 (0.0-1.0) mg/dL Direct Bilirubin 0.3 (0.0-0.5) mg/dL AST 26 (5-31) U/L ALT 17 (0-31) U/L Alkaline Phosphatase 123 H D (39-117) U/L Albumin 4.6 (3.5-5.0) g/dL Imaging CT scan - abdomen: Attestation: I personally reviewed and interpreted this imaging study as follows: My impression: -mild thickening noted at the level of EJ anastomosis -dilated proximal small bowel with sudden transition point in left mid abdomen -fecal loading Assessment and Plan (1) Partial bowel obstruction: Status: Acute (2) History of gastrectomy: Status: Acute (3) Dysphagia, pharyngoesophageal phase: Status: Acute (4) Gastric cancer: Qualifiers: Malignant neoplasm of stomach location: unspecified location Qualified Code(s): C16.9 - Malignant neoplasm of stomach, unspecified Status: Acute Plan Clinically consistent with complete bowel obstruction since patient is obstipated for 48 hours now. Differentials include anastomotic stricture, ring, adhesive disease, mass. Will plan for push enteroscopy +/- dilation today. My concern is that the entero-enteric anastomosis may be too far down and not reachable through push endoscopy alone. This was reviewed with the patient as well. If that does bottom turning lathe turner to be the case, may need re-evaluation with enteroscopy. Please keep NPO Agree with NGT for decompression IV fluids OOB as tolerated Procedures Date of Service Date of Service: 02/17/22
[2022-02-17 10:34] LABS: COVID-19 Test Negative (Negative)
[2022-02-17 13:15] VITALS: BP 163/72; PULSE 74; RESP 18; TEMP 36.6; O2SAT 97
--- NOTE | 2022-02-17 14:51 | HO.ANESPROP2 ---
[facility] Active Problems Active Problems: All Active Problems (Updated 02/17/22 @ 00:39 by Vinicius Keene MD) Partial bowel obstruction (Acute) Mouth ulcer (Acute) Dysphagia, pharyngoesophageal phase (Acute) History of gastrectomy (Acute) History of gastrectomy (Acute) Loose bowel movements (Acute) Hypercholesterolemia (Acute) Coarse tremors (Acute) Type 2 diabetes mellitus with hyperglycemia (Acute) Diverticulitis (Acute) UTI (urinary tract infection) (Acute) Erosive esophagitis (Acute) Gastric cancer (Acute) Past Medical History Medical History History of cellulitis Hx of diverticulitis of colon Hypercholesterolemia Lab test negative for COVID-19 virus Type 2 diabetes mellitus with hyperglycemia Functional capacity: independent ambulation Patient : No Family History Family History Father Pancreatic cancer Mother NHL (non-Hodgkin's lymphoma) Maternal Grandfather Prostate cancer Maternal Grandmother Diabetes Heart disease Paternal Grandfather Diabetes Son Asthma Family history of problems with anesthesia: No Surgical History Surgical History H/O tubal ligation History of esophagogastroduodenoscopy (EGD) History of gastrectomy Hx of appendectomy Hx of colonoscopy Hx of tonsillectomy S/P cholecystectomy (~1988) S/P right knee arthroscopy (~2002) History of Problems with Anesthesia: No Social History Social History Household Members: Spouse Housing: House Are you a primary hemodialysis patient care specialist to a significant other at home: No Do you presently have visiting nurse or other home services: No Alcohol intake: current Alcohol intake frequency: does not drink Patient Tobacco Use Status: Never used Tobacco Second Hand Smoke Exposure: No Use of substances other than those prescribed or required for medical reasons: No Have you been hit, kicked, punched, or otherwise hurt by someone within the past year? If so, by whom?: No Do you feel safe in your current relationship?: Yes Is there a partner from a previous relationship who is making you feel unsafe now?: No Are you made to feel afraid or neglected: No Advance Directives: No Advance Directives Information Provided: No Do you have thoughts of harming others: None Recently lost weight without trying: Yes How much weight loss: 2-13 pounds Eating poorly because of decreased appetite: Yes Nutrition screen score: 4 Nutrition Risks: Poor intake 0-25% >4 days Patient : No : No Poor oral hygiene: No service: No Current occupational status: unemployed and previously employed 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 Allergy/AdvReac Type Severity Reaction Status Date / Time meperidine [From Demerol] Allergy Severe Swelling Verified 02/04/22 10:49 Active Medications: Current Medications Enoxaparin Sodium (Enoxaparin Sodium 40 Mg/0.4 Ml Syringe) 40 mg SUBCUT Q24H [facility] Last Admin: 02/17/22 00:55 Dose: 40 mg Famotidine (Famotidine/Pf 20 Mg/2 Ml Vial) 20 mg IVPUSH DAILY [facility] Last Admin: 02/17/22 08:40 Dose: 20 mg Sodium Chloride (Ns) 1,000 mls @ 100 mls/hr IVCONT .Q10H [facility] Last Admin: 02/17/22 10:10 Dose: 100 mls/hr Morphine Sulfate (Morphine Sulfate 4 Mg/Ml Cartridge) 4 mg IVPUSH Q4H PRN; Protocol PRN Reason: Pain, Severe (Pain Scale 7-10) Last Admin: 02/17/22 01:08 Dose: 4 mg Ondansetron HCl (Ondansetron Hcl 4 Mg/2 Ml Vial) 4 mg IVPUSH Q8H PRN PRN Reason: Nausea and Vomiting Sodium Chloride (0.9 % Sodium Chloride Flush 3 Ml Syringe) 3 ml IVFLUSH QSHIFT [facility] Last Admin: 02/17/22 07:45 Dose: Not Given Home Medications Medication Instructions Recorded Confirmed Last Taken Type multivitamin 1 tab PO DAILY 05/11/20 02/17/22 Unknown History famotidine 20 mg tablet 1 tab PO DAILY 02/17/22 02/17/22 Unknown History insulin glargine 100 unit/mL (3 10 unit subcut QPM 02/17/22 02/17/22 Unknown History mL) subcutaneous pen (Lantus Solostar U-100 Insulin) sucralfate 1 gram tablet 1 tab PO TID 02/17/22 02/17/22 Unknown History Exam Exam Date and Time: February 17, 2022 1451 Height,Weight and Vital Signs: Height 5 ft Weight 53.977 kg Last Vital Signs Temp 97.8 F 02/17/22 13:15 Pulse 74 02/17/22 13:15 Resp 18 02/17/22 13:15 BP 163/72 H 02/17/22 13:15 Pulse Ox 97 02/17/22 13:15 O2 Del Method 02/17/22 13:15 Pertinent Lab Results Pertinent Lab Results: Laboratory Tests 02/16/22 02/16/22 02/17/22 17:18 17:18 04:59 WBC 6.0 RBC 3.97 L Hgb 12.4 D Hct 37.6 MCV 94.7 MCH 31.2 MCHC 33.0 RDW 13.4 Plt Count 151 L MPV 9.9 Immature Gran % (Auto) 0.3 Neut % (Auto) 75.1 H Lymph % (Auto) 17.9 L [place] % (Auto) 5.8 Eos % (Auto) 0.7 Baso % (Auto) 0.2 Lymph # (Auto) 1.1 L [place] # (Auto) 0.4 Eos # (Auto) 0.0 Baso # (Auto) 0.0 Abs Immat Gran (auto) 0.02 Absolute Neuts (auto) 4.5 Absolute Nucleated RBC 0.000 Nucleated RBC % (auto) 0.0 Sodium 142 141 Potassium 4.1 3.4 Chloride 100 104 Carbon Dioxide 30 H 27 Anion Gap 16 13 BUN 10 9 Creatinine 0.72 0.56 Estim Creat Clear Calc 55.2 71.0 Estimated GFR > 60 > 60 Random Glucose 148 H 81 Calcium 9.9 D 8.6 D Magnesium 1.9 Total Bilirubin 0.7 Direct Bilirubin 0.3 AST 26 ALT 17 Alkaline Phosphatase 123 H D Total Protein 7.1 Albumin 4.6 Lipase 9 COVID-19 (DERECK) COVID-19 Clin Com 02/17/22 10:09 WBC RBC Hgb Hct MCV MCH MCHC RDW Plt Count MPV Immature Gran % (Auto) Neut % (Auto) Lymph % (Auto) [place] % (Auto) Eos % (Auto) Baso % (Auto) Lymph # (Auto) [place] # (Auto) Eos # (Auto) Baso # (Auto) Abs Immat Gran (auto) Absolute Neuts (auto) Absolute Nucleated RBC Nucleated RBC % (auto) Sodium Potassium Chloride Carbon Dioxide Anion Gap BUN Creatinine Estim Creat Clear Calc Estimated GFR Random Glucose Calcium Magnesium Total Bilirubin Direct Bilirubin AST ALT Alkaline Phosphatase Total Protein Albumin Lipase COVID-19 (DERECK) Negative COVID-19 Clin Com See Note Assessment and Plan Final Anesthetic Review Family History of Problems with Anesthesia: No History of Problems with Anesthesia: No
[2022-02-17 15:19] VITALS: BP 149/66; PULSE 73; RESP 16; TEMP 36.1; O2SAT 97
--- NOTE | 2022-02-17 16:32 | PM.EVENT ---
Event Note Date of Service: 02/18/22 Event Note: Patient feeling better Abdominal pain much improved Abdomen soft, still with some tenderness on the left side CT reviewed again - difficult to clearly define anatomy especially where fecalization is seen I would go for contrast study before doing any enteroscopy Use Gastrografin Patient remains stable and comfortable at this time NPO with IV fluids
[2022-02-17 17:23] LABS: Glucose, Whole Blood 48 mg/dL (60-115)
[2022-02-17] MEDS: Dextrose 50 % 25 GM/50 ML SYRINGE IVPUSH (17:39)
[2022-02-17 18:05] LABS: Glucose, Whole Blood 146 mg/dL (60-115)
[2022-02-17] MEDS: ondansetron HCL 4 MG/2 ML VIAL IVPUSH (18:08)
[2022-02-17 19:11] VITALS: BP 148/64; PULSE 70; RESP 18; TEMP 37; O2SAT 97
[2022-02-17] MEDS: Dextrose 5 % and 0.9 % NaCl 1,000 ML 100 ML IVCONT (20:11)
[2022-02-17] MEDS: 0.9 % Sodium Chloride Flush 3 ML SYRINGE IVFLUSH (20:13)
[2022-02-18] VITALS (7 sets, daily range): BP systolic 142–155; BP diastolic 59–68; PULSE 71–89; RESP 16–18; TEMP 36.2–37.2; O2SAT 96–98; BMI 23.2
[2022-02-18] MEDS: Enoxaparin Sodium 40 MG/0.4 ML SYRINGE SUBCUT
[2022-02-18] MEDS: Dextrose 5 % and 0.9 % NaCl 1,000 ML 100 ML IVCONT ×2 (06:10→20:40)
[2022-02-18 07:46] LABS: Glucose, Whole Blood 148 mg/dL (60-115)
--- NOTE | 2022-02-18 08:21 | PM.PNGS ---
Subjective Subjective Date of Service: 02/18/22 <Debra Mistry PA-C - Last Filed: 02/18/22 08:30> 02/18/22 <Andrew Mao MD - Last Filed: 02/18/22 14:50> Interval history: Feels better overall this morning; pain but much improved. C/o throat pain. Passes flatus once. Has been OOB to bathroom. <Debra Mistry PA-C - Last Filed: 02/18/22 08:30> Physical Exam Vital Signs: Vital Signs: Last Vital Signs Temp 97.5 F 02/18/22 07:30 Pulse 76 02/18/22 07:30 Resp 17 02/18/22 07:30 BP 145/68 H 02/18/22 07:30 Pulse Ox 96 02/18/22 07:30 O2 Del Method 02/18/22 07:30 BMI result Body Mass Index 23.2 <Debra Mistry PA-C - Last Filed: 02/18/22 08:30> Const: General: no acute distress and alert <Debra Mistry PA-C - Last Filed: 02/18/22 08:30> Orientation/consciousness: patient oriented x3 <GREGORY Robison Last Filed: 02/18/22 08:30> HEENT: Other: NGT in place <Debra Mistry PA-C - Last Filed: 02/18/22 08:30> Resp: Effort & Inspection: normal respiratory effort <Debra Mistry PA-C - Last Filed: 02/18/22 08:30> Cardio: Rate: regular rate <Debra Mistry PA-C - Last Filed: 02/18/22 08:30> GI: Inspection: No distended <GREGORY Robison Last Filed: 02/18/22 08:30> Palpation (GI): Soft to palpation, Tenderness to palpation present (GI) (mild, left sided), no guarding and not rigid <GREGORY Robison Last Filed: 02/18/22 08:30> Percussion: Yes normal to percussion <Debra Mistry PA-C - Last Filed: 02/18/22 08:30> Skin: General skin exam: no rashes or lesions noted <GREGORY Robison Last Filed: 02/18/22 08:30> Neuro: General: patient oriented x3 <Debra Mistry PA-C - Last Filed: 02/18/22 08:30> Extrem: General: Yes no clubbing, cyanosis or edema <Debra Mistry PA-C - Last Filed: 02/18/22 08:30> Objective Data Active Medications Dextrose (Dextrose 50 % 25 Gm/50 Ml Syringe) 25 gm IVPUSH Q15M PRN; Protocol PRN Reason: per Hypoglycemia Standing Ord. Enoxaparin Sodium (Enoxaparin Sodium 40 Mg/0.4 Ml Syringe) 40 mg SUBCUT Q24H [facility] Last Admin: 02/18/22 00:00 Dose: 40 mg Documented By: DEB Famotidine (Famotidine/Pf 20 Mg/2 Ml Vial) 20 mg IVPUSH DAILY [facility] Last Admin: 02/17/22 08:40 Dose: 20 mg Documented By: ALVARO Glucose (Glucose Gel 15 Gm Gel..Gram.) 15 gm PO Q15M PRN; Protocol PRN Reason: per Hypoglycemia Standing Ord. Dextrose/Sodium Chloride (D5ns) 1,000 mls @ 100 mls/hr IVCONT .Q10H [facility] Last Admin: 02/18/22 06:10 Dose: 100 mls/hr Documented By: DEB Insulin Human Lispro (Insulin Lispro 100 Unit/Ml 3 Ml Vial) 0 unit SUBCUT QIDACHS [facility]; Protocol Stop: 02/19/22 05:48 Last Admin: 02/18/22 07:49 Dose: Not Given Documented By: ANNA Non-Admin Reason: No Insulin Coverage Morphine Sulfate (Morphine Sulfate 4 Mg/Ml Cartridge) 4 mg IVPUSH Q4H PRN; Protocol PRN Reason: Pain, Severe (Pain Scale 7-10) Last Admin: 02/17/22 18:08 Dose: 4 mg Documented By: DILAN Ondansetron HCl (Ondansetron Hcl 4 Mg/2 Ml Vial) 4 mg IVPUSH Q8H PRN PRN Reason: Nausea and Vomiting Last Admin: 02/17/22 18:08 Dose: 4 mg Documented By: DILAN Sodium Chloride (0.9 % Sodium Chloride Flush 3 Ml Syringe) 3 ml IVFLUSH QSHIFT [facility] Last Admin: 02/18/22 07:15 Dose: Not Given Documented By: ANNA Non-Admin Reason: IV Running <Debra Mistry PA-C - Last Filed: 02/18/22 08:30> Labs CBC & Chem 7: : 02/16/22 17:18 02/17/22 04:59 <Debra Mistry PA-C - Last Filed: 02/18/22 08:30> Labs: Laboratory Results - last 24 hr 02/17/22 02/17/22 02/17/22 10:09 17:14 18:01 POC Glucose 48 L* 146 H COVID-19 (DERECK) Negative COVID-19 Clin Com See Note 02/18/22 07:28 POC Glucose 148 H COVID-19 (DERECK) COVID-19 Clin Com <Debra Mistry PA-C - Last Filed: 02/18/22 08:30> Procedures Date of Service Date of Service: 02/18/22 <Debra Mistry PA-C - Last Filed: 02/18/22 08:30> Progress Note: A&P Assessment and plan (1) Partial bowel obstruction: Status: Acute <Debra Mistry PA-C - Last Filed: 02/18/22 08:30> (2) Gastric cancer: Status: Acute <Debra Mistry PA-C - Last Filed: 02/18/22 08:30> (3) History of gastrectomy: Status: Acute <Debra Mistry PA-C - Last Filed: 02/18/22 08:30> Assessment and Plan: feels much better denies pain passing flatus says she ahd watery BMs not much from NGT abd soft, nondistended, no tenderness now SB series - contrast has advanced through distal small bowel much improved plan to dc NGT tomorrow, then start clear liquids enteroscopy canceled- dw GI above dw at bedside seen and examined independently - agree w/ KELLIE Mistry <Andrew Mao MD - Last Filed: 02/18/22 14:50> Assessment and Plan: Sheryl Espinoza is a 66 year old female with gastric CA s/p gastrectomy lymphadenectomy and omentectomy, Melyssa-en-Y reconstruction with end-to-side esophagojejunostomy (retro colic) in 12/2020 who presents with abdominal pain, vomiting and obstipation with CT scan showing dilated SB loops with transition point in the left midabdomen. She was admitted to the medical service for further treatment of the SBO. She is improved symptomatically with some evidence of return of GI function. VSS. Abd- soft, non distended, mild left sided tenderness. Plan for upper GI series with gastrograffin through NGT today to define anatomy prior to enteroscopy by GI. 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 Will continue supportive measures of NPO, NGT, IVF. Oncology following. <Debra Mistry PA-C - Last Filed: 02/18/22 08:30> Time Spent With Patient Time: Total time spent is greater than 50% in coordination of care (as documented) at patient's floor/unit and/or counseling patient: <Debra Mistry PA-C - Last Filed: 02/18/22 08:30> Quality Stroke Does the patient have a stroke diagnosis?: No <Debra Mistry PA-C - Last Filed: 02/18/22 08:30> VTE Prior VTE?: No <Debra Mistry PA-C - Last Filed: 02/18/22 08:30> VTE Risk Level:: Medical - moderate - high <Debra Mistry PA-C - Last Filed: 02/18/22 08:30> VTE Device Contraindication: N/A - Device Ordered <Debra Mistry PA-C - Last Filed: 02/18/22 08:30> VTE Drug Contraindication: N/A - Med Ordered <Debra Mistry PA-C - Last Filed: 02/18/22 08:30>
[2022-02-18 11:29] LABS: Glucose, Whole Blood 172 mg/dL (60-115)
[2022-02-18] MEDS: Insulin Lispro 100 UNIT/ML 3 ML VIAL SUBCUT ×2 (11:49→16:36)
--- NOTE | 2022-02-18 12:41 | MHC.CLN ---
NUTRITION PATIENT WITH PARTIAL SBO AND NPO STATUS. IF UNABLE TO ADVANCE DIET, RECOMMEND TPN. PATIENT WITH CENTRAL LINE. DAY 1: TPN D15AA5@ 30 ML PER HOUR. PROVIDES 511 KCALS, 36 G PROTEIN. REPLETE LYTES NEEDED. DAY 2: TPN D15AA5@ 41.67 ML PER HOUR. PROVIDES 710 KCALS, 50 G PROTEIN. REPLETE LYTES NEEDED. CHECK TRIGLYCERIDES. DAY 3: MAX GOAL RATE. TPN D15AA5@ 55 ML PER HOUR. ADD LIPIDS 17 ML PER HOUR OF 20% LIPIDS. PROVIDES 1345 KCALS (24.9 KCALS/KG), 66 G PROTEIN (1.22 G/KG) REPLETE LYTES NEEDED. FOLLOW LABS, PPN, AND DIET ADVANCEMENT. SEE CLINICAL NUTRITION ASSESSMENT 02/18/22.
--- NOTE | 2022-02-18 12:58 | MHC.CM.PN ---
IMM 02/18/22 Female DX SBO She lives with her . She is independent with all functional mobility. HCP on file. She has been vaccinated 1x. DP Home self care, family transport. She is currantly NPO with an NG tube to gravity at the time of the CM assessment interview.
--- NOTE | 2022-02-18 13:02 | PM.GIPN ---
Subjective Subjective Date of Service: 02/18/22 Interval History: Underwent gastrograffin follow through this morning - contrast opacifying small bowel distal to the original transition point noted on CT. Pt herself reports feeling better. Cont to have some abdominal cramping but now passing flatus and had a BM earlier. Critical Care Time (minutes): 0 Physical Exam Vital Signs: Vital Signs: Last Vital Signs Temp 97.5 F 02/18/22 12:00 Pulse 86 02/18/22 12:00 Resp 16 02/18/22 12:00 BP 142/67 H 02/18/22 12:00 Pulse Ox 98 02/18/22 12:00 O2 Del Method 02/18/22 12:00 BMI result Body Mass Index 23.2 Gen appear: No acute distress, HEENT: NGT in place, cannister with <250cc drainage Chest: No overt resp distress CVS: S1/S2, regular Abd: soft, nontender, nondistended, bowel sounds + Psych: Stable affect, answering questions appropriately Neuro: A/Ox3 noted to move all extremities spontaneously Ext: no peripheral edema Objective Data Labs CBC & Chem 7: 02/16/22 17:18 02/17/22 04:59 Labs: Laboratory Results - last 24 hr 02/17/22 02/17/22 02/18/22 17:14 18:01 07:28 POC Glucose 48 L* 146 H 148 H 02/18/22 11:19 POC Glucose 172 H Procedures Date of Service Date of Service: 02/18/22 Progress Note: A&P Assessment and plan (1) Partial bowel obstruction: Status: Acute (2) Dysphagia, pharyngoesophageal phase: Status: Acute (3) History of gastrectomy: Status: Acute (4) Gastric cancer: Status: Acute Plan Clinical and radiographic evidence of resolving pSBO. Will defer push enteroscopy at this time. Patient continues with dysphagia however. Started ~ 1-2 months after last dilation. Will set up repeat EGD for balloon dil (possibly with intralesional steroid inj). This can not be done today due to risk of gastrograffin aspiration and will be set up as outpatient as per her preference. Time Spent With Patient Time: Total time spent is greater than 50% in coordination of care (as documented) at patient's floor/unit and/or counseling patient: Quality Stroke Does the patient have a stroke diagnosis?: No VTE Prior VTE?: No VTE Risk Level:: Medical - moderate - high VTE Device Contraindication: N/A - Device Ordered VTE Drug Contraindication: N/A - Med Ordered
[2022-02-18 14:55] LABS: Albumin Level 3.7 g/dL (3.5-5.0); Anion Gap 14 (12-20); Blood Urea Nitrogen 8 mg/dL (9-16); Calcium 8.8 mg/dL (8.4-10.2); Carbon Dioxide 28 mmol/L (22-29); Chloride 105 mmol/L (96-108); Estimated Glomerular Filt Rate > 60; Glucose Random 166 mg/dL (60-115); Magnesium 1.8 mg/dL (1.6-2.6); Phosphorus 2.8 mg/dL (2.7-4.5); Potassium 3.1 mmol/L (3.3-5.1); Sodium 144 mmol/L (135-145)
--- NOTE | 2022-02-18 16:00 | PC.NURSE ---
Pt seen by Dr. Campbell, Per Dr. Campbell clamp NGT for one hour and then check residual to determine further need, NGT clamped at 12:15, Residual checked at 1:15, Residual amount 10ml, Reported to Dr Campbell who advised to pass along to general surgery for decision to remove NGT, NGT to remain per Dr Mao and Debra HOPKINS.
[2022-02-18 16:01] LABS: Glucose, Whole Blood 156 mg/dL (60-115)
--- NOTE | 2022-02-18 16:14 | PM.EVENT ---
Event Note Date of Service: 02/18/22 Event Note: She continues to feel better Denies significant abdominal pain Abdomen soft, nondistended, no guarding rebound She says she is passing flatus and had loose BMs Plan to DC NG tube tomorrow after completion of small-bowel series Replace potassium Hospitalist consult for diabetes Much improved
[2022-02-18] MEDS: Potassium Chloride Packet 20 MEQ PACKET 40 MEQ PO ×2 (16:36→21:17)
[2022-02-18 19:32] LABS: Glucose, Whole Blood 129 mg/dL (60-115)
[2022-02-18] MEDS: 0.9 % Sodium Chloride Flush 3 ML SYRINGE IVFLUSH (20:38)
[2022-02-18] MEDS: Morphine Sulfate 4 MG/ML CARTRIDGE IVPUSH (22:31)
[2022-02-19] VITALS: BP 129/60; PULSE 84; RESP 18; TEMP 36.7; O2SAT 97
[2022-02-19] MEDS: Enoxaparin Sodium 40 MG/0.4 ML SYRINGE SUBCUT (00:23)
[2022-02-19 04:00] VITALS: BP 123/60; PULSE 79; RESP 18; TEMP 36.4; O2SAT 96
[2022-02-19] MEDS: Dextrose 5 % and 0.9 % NaCl 1,000 ML 100 ML IVCONT (04:33)
[2022-02-19 07:32] VITALS: BP 135/63; PULSE 78; RESP 18; TEMP 37.6; O2SAT 96
[2022-02-19 07:48] LABS: Glucose, Whole Blood 129 mg/dL (60-115)
[2022-02-19] MEDS: Famotidine/PF 20 MG/2 ML VIAL IVPUSH (08:22)
--- NOTE | 2022-02-19 08:24 | HO.PM.IMCN ---
History of Present Illness Data of Consult Service Date: 02/19/22 Requesting physician: Andrew Mao Primary Care Provider: Zachary Clark MD HPI 66 year old female with hx of gastric CA s/p gastrectomy lymphadenectomy and omentectomy, Melyssa-en-Y reconstruction with end-to-side esophagojejunostomy (retro colic) in 12/26 who presents with abdominal pain, vomiting and obstipation with CT scan showing dilated SB loops with transition point in the left mid abdomen. She had NGT placed. She was admitted by general surgery. She is currently hemodynamically stable with no acute complaints. Review of Systems Review of Systems: Denies any recent fever chills or decrease in appetite respiratory denies any shortness of breath coverage production cardiovascular Denies chest pain gastrointestinal denies any dysphagia abdominal pain nausea vomiting or diarrhea genitourinary denies any dysuria frequency or hematuria musculoskeletal denies any joint pain or swelling neuropsych denies any weakness or seizures all other systems reviewed are negative [facility] History History of cellulitis Hx of diverticulitis of colon Hypercholesterolemia Lab test negative for COVID-19 virus Type 2 diabetes mellitus with hyperglycemia Functional capacity: independent ambulation Family History Father Pancreatic cancer Mother NHL (non-Hodgkin's lymphoma) Maternal Grandfather Prostate cancer Maternal Grandmother Diabetes Heart disease Paternal Grandfather Diabetes Son Asthma Surgical History H/O tubal ligation History of esophagogastroduodenoscopy (EGD) History of gastrectomy Hx of appendectomy Hx of colonoscopy Hx of tonsillectomy S/P cholecystectomy (~1988) S/P right knee arthroscopy (~2002) Social History Household Members: Spouse Housing: House Are you a primary primary care physician to a significant other at home: No Do you presently have visiting nurse or other home services: No Alcohol intake: current Alcohol intake frequency: does not drink Patient Tobacco Use Status: Never used Tobacco Second Hand Smoke Exposure: No service: No Current occupational status: unemployed and previously employed 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 Enoxaparin Sodium (Enoxaparin Sodium 40 Mg/0.4 Ml Syringe) 40 mg SUBCUT Q24H [facility] Last Admin: 02/19/22 00:23 Dose: 40 mg Famotidine (Famotidine/Pf 20 Mg/2 Ml Vial) 20 mg IVPUSH DAILY [facility] Last Admin: 02/19/22 08:22 Dose: 20 mg Glucose (Glucose Gel 15 Gm Gel..Gram.) 15 gm PO Q15M PRN; Protocol PRN Reason: per Hypoglycemia Standing Ord. Dextrose/Sodium Chloride (D5ns) 1,000 mls @ 100 mls/hr IVCONT .Q10H [facility] Last Admin: 02/19/22 04:33 Dose: 100 mls/hr Morphine Sulfate (Morphine Sulfate 4 Mg/Ml Cartridge) 4 mg IVPUSH Q4H PRN; Protocol PRN Reason: Pain, Severe (Pain Scale 7-10) Last Admin: 02/18/22 22:31 Dose: 4 mg Ondansetron HCl (Ondansetron Hcl 4 Mg/2 Ml Vial) 4 mg IVPUSH Q8H PRN PRN Reason: Nausea and Vomiting Last Admin: 02/17/22 18:08 Dose: 4 mg Sodium Chloride (0.9 % Sodium Chloride Flush 3 Ml Syringe) 3 ml IVFLUSH QSHIFT [facility] Last Admin: 02/19/22 07:16 Dose: Not Given Home Medications Medication Instructions Recorded Confirmed Last Taken Type multivitamin 1 tab PO DAILY 05/11/20 02/17/22 Unknown History famotidine 20 mg tablet 1 tab PO DAILY 02/17/22 02/17/22 Unknown History insulin glargine 100 unit/mL (3 10 unit subcut QPM 02/17/22 02/17/22 Unknown History mL) subcutaneous pen (Lantus Solostar U-100 Insulin) sucralfate 1 gram tablet 1 tab PO TID 02/17/22 02/17/22 Unknown History Physical Exam Vital Signs and Narrative: Vital Signs: Last Vital Signs Temp 99.7 F 02/19/22 07:32 Pulse 78 02/19/22 07:32 Resp 18 02/19/22 07:32 BP 135/63 02/19/22 07:32 Pulse Ox 96 02/19/22 07:32 O2 Del Method 02/19/22 07:32 BMI result Body Mass Index 23.2 Appearing in no acute distress head is normocephalic atraumatic eyes pupils are PERRLA sclera is anicteric mouth throat mucous membranes are intact and moist neck is supple no lymphadenopathy, no JVD noted lung sounds are clear to auscultation heart regular rate rhythm, clear S1, S2 positive bowel sounds, abdomen is soft, nontender neuro patient is alert x3, no focal deficits Results Labs CBC and Chem 7: 02/16/22 17:18 02/18/22 14:16 Labs: Laboratory Results - last 24 hr 02/18/22 02/18/22 02/18/22 11:19 14:16 15:52 Anion Gap 14 Estim Creat Clear Calc 71.0 Estimated GFR > 60 POC Glucose 172 H 156 H Random Glucose 166 H Calcium 8.8 Phosphorus 2.8 Magnesium 1.8 Albumin 3.7 02/18/22 02/19/22 18:57 07:32 Anion Gap Estim Creat Clear Calc Estimated GFR POC Glucose 129 H 129 H Random Glucose Calcium Phosphorus Magnesium Albumin Assessment and Plan (1) Partial bowel obstruction: Status: Acute Plan 66 year old women admittted by general surgery due to SBO with hx of gastric CA Partial SBO NGT removed passing flatus, +BM advanced to clear liquids Diabetes Sliding scale Hx of gastric cancer Follow up with hematology outpatient DVT prophylaxis Lovenox Attending Dr. Dugan Full code
--- NOTE | 2022-02-19 09:27 | PM.PNGS ---
Subjective Subjective Date of Service: 02/19/22 Interval history: passing flatus denies nausea or vomiting despite NG tube being clamped all night feels well denies abdominal pain Physical Exam Vital Signs: Vital Signs: Last Vital Signs Temp 99.7 F 02/19/22 07:32 Pulse 78 02/19/22 07:32 Resp 18 02/19/22 07:32 BP 135/63 02/19/22 07:32 Pulse Ox 96 02/19/22 07:32 O2 Del Method 02/19/22 07:32 BMI result Body Mass Index 23.2 Const: General: comfortable and no acute distress Resp: Effort & Inspection: normal respiratory effort Cardio: Rate: regular rate GI: Palpation (GI): Soft to palpation, not firm, nontender and no guarding Objective Data Active Medications Dextrose (Dextrose 50 % 25 Gm/50 Ml Syringe) 25 gm IVPUSH Q15M PRN; Protocol PRN Reason: per Hypoglycemia Standing Ord. Enoxaparin Sodium (Enoxaparin Sodium 40 Mg/0.4 Ml Syringe) 40 mg SUBCUT Q24H [facility] Last Admin: 02/19/22 00:23 Dose: 40 mg Documented By: IVONNE Famotidine (Famotidine/Pf 20 Mg/2 Ml Vial) 20 mg IVPUSH DAILY [facility] Last Admin: 02/19/22 08:22 Dose: 20 mg Documented By: DCO Glucose (Glucose Gel 15 Gm Gel..Gram.) 15 gm PO Q15M PRN; Protocol PRN Reason: per Hypoglycemia Standing Ord. Dextrose/Sodium Chloride (D5ns) 1,000 mls @ 100 mls/hr IVCONT .Q10H [facility] Last Admin: 02/19/22 04:33 Dose: 100 mls/hr Documented By: IVONNE Morphine Sulfate (Morphine Sulfate 4 Mg/Ml Cartridge) 4 mg IVPUSH Q4H PRN; Protocol PRN Reason: Pain, Severe (Pain Scale 7-10) Last Admin: 02/18/22 22:31 Dose: 4 mg Documented By: IVONNE Ondansetron HCl (Ondansetron Hcl 4 Mg/2 Ml Vial) 4 mg IVPUSH Q8H PRN PRN Reason: Nausea and Vomiting Last Admin: 02/17/22 18:08 Dose: 4 mg Documented By: DILAN Sodium Chloride (0.9 % Sodium Chloride Flush 3 Ml Syringe) 3 ml IVFLUSH QSHIFT [facility] Last Admin: 02/19/22 07:16 Dose: Not Given Documented By: DOC Non-Admin Reason: IV Running Labs CBC & Chem 7: 02/16/22 17:18 02/18/22 14:16 Labs: Laboratory Results - last 24 hr 02/18/22 02/18/22 02/18/22 11:19 14:16 15:52 Anion Gap 14 Estim Creat Clear Calc 71.0 Estimated GFR > 60 POC Glucose 172 H 156 H Random Glucose 166 H Calcium 8.8 Phosphorus 2.8 Magnesium 1.8 Albumin 3.7 02/18/22 02/19/22 18:57 07:32 Anion Gap Estim Creat Clear Calc Estimated GFR POC Glucose 129 H 129 H Random Glucose Calcium Phosphorus Magnesium Albumin Procedures Date of Service Date of Service: 02/19/22 Progress Note: A&P Assessment and plan (1) Partial bowel obstruction: Status: Acute Assessment and Plan: symptoms resolved contrast study was progression of contrast distally NG tube removed okay to have clear liquids out of bed to chair/ ambulate looks well Time Spent With Patient Time: Total time spent is greater than 50% in coordination of care (as documented) at patient's floor/unit and/or counseling patient: Quality Stroke Does the patient have a stroke diagnosis?: No VTE Prior VTE?: No VTE Risk Level:: Medical - moderate - high VTE Device Contraindication: N/A - Device Ordered VTE Drug Contraindication: N/A - Med Ordered
--- NOTE | 2022-02-19 11:29 | MHC.CLN ---
F/U DIET ADVANCED TO CLEAR LIQUIDS TODAY. ADDING ENSURE CLEAR TID TO PROMOTE NUTRITIONAL INTAKE.
[2022-02-19 11:34] LABS: Glucose, Whole Blood 154 mg/dL (60-115)
[2022-02-19 11:48] VITALS: BP 140/63; PULSE 74; RESP 18; TEMP 37.2; O2SAT 100
--- NOTE | 2022-02-19 13:01 | PM.HEMONCCN ---
Subjective - Subjective Chief complaint: gastric cancer Patient: new to practice Consult date: 02/19/22 Primary Care Provider: Zachary Clark MD HPI - Consult Narrative Reason for consult: gastric cancer Narrative: Sheryl Espinoza is a 66 year old female who had surgery yesterday for probable gastric cancer. Pathology results are pending. She has been see by Dr. Cisneros in the past. Review of Systems - Constitutional Reports weight loss - Eyes Reports other - ENT Reports other - Cardiovascular Reports shortness of breath with activity - Respiratory Reports dyspnea on exertion - Gastrointestinal Reports abdominal pain - Genitourinary Reports urinary urgency - Musculoskeletal Reports muscle weakness - Neurologic Denies numbness PMFSH Medical History: Medical History (Last Reviewed 02/17/22 @ 14:53 by Stacey Krause MD) History of cellulitis Hx of diverticulitis of colon Hypercholesterolemia Lab test negative for COVID-19 virus Type 2 diabetes mellitus with hyperglycemia Functional capacity: independent ambulation Family History: Family History (Last Reviewed 02/17/22 @ 14:53 by Stacey Krause MD) Father Pancreatic cancer Mother NHL (non-Hodgkin's lymphoma) Maternal Grandfather Prostate cancer Maternal Grandmother Diabetes Heart disease Paternal Grandfather Diabetes Son Asthma Surgical History: Surgical History (Last Reviewed 02/17/22 @ 14:54 by Stacey Krause MD) H/O tubal ligation History of esophagogastroduodenoscopy (EGD) History of gastrectomy Hx of appendectomy Hx of colonoscopy Hx of tonsillectomy S/P cholecystectomy Onset Date: ~1988 S/P right knee arthroscopy Onset Date: ~2002 Social History: Social History (Last Reviewed 02/17/22 @ 14:54 by Stacey Krause MD) Living Situation History: Household Members: Spouse Housing: House Are you a primary acute care clinical nurse specialist to a significant other at home: No Do you presently have visiting nurse or other home services: No Tobacco History: Patient Tobacco Use Status: Never used Tobacco Second Hand Smoke Exposure: No Occupation Assessmet: service: No Current occupational status: unemployed Current occupational status: previously employed 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 Enoxaparin Sodium (Enoxaparin Sodium 40 Mg/0.4 Ml Syringe) 40 mg SUBCUT Q24H [facility] Last Admin: 02/19/22 00:23 Dose: 40 mg Famotidine (Famotidine/Pf 20 Mg/2 Ml Vial) 20 mg IVPUSH DAILY [facility] Last Admin: 02/19/22 08:22 Dose: 20 mg Glucose (Glucose Gel 15 Gm Gel..Gram.) 15 gm PO Q15M PRN; Protocol PRN Reason: per Hypoglycemia Standing Ord. Dextrose/Sodium Chloride (D5ns) 1,000 mls @ 60 mls/hr IVCONT .[id number] [facility] Last Infusion: 02/19/22 09:48 Dose: 60 mls/hr Morphine Sulfate (Morphine Sulfate 4 Mg/Ml Cartridge) 4 mg IVPUSH Q4H PRN; Protocol PRN Reason: Pain, Severe (Pain Scale 7-10) Last Admin: 02/18/22 22:31 Dose: 4 mg Ondansetron HCl (Ondansetron Hcl 4 Mg/2 Ml Vial) 4 mg IVPUSH Q8H PRN PRN Reason: Nausea and Vomiting Last Admin: 02/17/22 18:08 Dose: 4 mg Sodium Chloride (0.9 % Sodium Chloride Flush 3 Ml Syringe) 3 ml IVFLUSH QSHIFT [facility] Last Admin: 02/19/22 07:16 Dose: Not Given Home Medications Medication Instructions Recorded Confirmed Type multivitamin 1 tab PO DAILY 05/11/20 02/17/22 History famotidine 20 mg tablet 1 tab PO DAILY 02/17/22 02/17/22 History insulin glargine 100 unit/mL (3 10 unit subcut QPM 02/17/22 02/17/22 History mL) subcutaneous pen (Lantus Solostar U-100 Insulin) sucralfate 1 gram tablet 1 tab PO TID 02/17/22 02/17/22 History Allergies Allergy/AdvReac Type Severity Reaction Status Date / Time meperidine [From Demerol] Allergy Severe Swelling Verified 02/04/22 10:49 Physical Exam Vital signs: Vital Signs Temp 99.0 F 02/19/22 11:48 Pulse 74 02/19/22 11:48 Resp 18 02/19/22 11:48 BP 140/63 H 02/19/22 11:48 Pulse Ox 100 02/19/22 11:48 O2 Del Method 02/19/22 11:48 Intake & Output 02/18/22 02/19/22 02/19/22 18:59 06:59 18:59 Intake Total 1088.334 / 1876.667 788.333 / 1876.667 525 / 525 Balance 1088.334 / 1876.667 788.333 / 1876.667 525 / 525 Intake: Intake, IV Amount 1088.334 / 1876.667 788.333 / 1876.667 525 / 525 0.9 % Sodium Chloride 1,000 ml 88.334 / 88.334 @ 100 mls/hr IVCONT .Q10H [facility] Rx#:[id number] Dextrose 5 % and 0.9 % NaCl 1, 1000 / 1788.333 788.333 / 1788.333 525 / 525 000 ml @ 100 mls/hr IVCONT . Q10H [facility] Rx#:[id number] Other: Meal Refused No No NPO Yes Yes Number of Unmeasured Voids 2 1 Number of Bowel Movements 4 Urine Bathroom Bathroom Urine Color Yellow Last Bowel Movement 02/18/22 Stool Bathroom Stool Amount Large Stool Color Yellow Stool Consistency Liquid Weight 53.977 kg Weight 53.977 kg - Constitutional Present: no acute distress - Routine HEENT Exam Head: Present: atraumatic - Routine Neck Exam Present: supple, full ROM - Routine Respiratory Exam Present: decreased breath sounds - Routine Abdominal Exam Present: diminished bowel sounds - Routine Extremities Exam Present: nontender Hem/Onc Consult Result - Labs CBC & Chem 7: 02/16/22 17:18 02/18/22 14:16 Labs: BMP 02/18/22 14:16 Sodium 144 Potassium 3.1 L Chloride 105 Carbon Dioxide 28 BUN 8 L Creatinine 0.56 Calcium 8.8 Liver Function 02/18/22 Range/Units 14:16 Albumin 3.7 (3.5-5.0) g/dL Assessment and Plan Patient Active problem list reviewed?: Yes (1) History of gastrectomy Start date: 02/19/22 Problem details: Gastrectomy, omentectomy, esophagojejunostomy, Melyssa-en-Y for gastric cancer Dr. Rajan December 2020 Status: Acute Assessment and plan: Will await pathologyat this time. She remains quite stalbe. - Time Spent With Patient Time Spent with Patient (in minutes): 25
[2022-02-19 15:39] VITALS: BP 148/68; PULSE 71; RESP 17; TEMP 37.1; O2SAT 98
[2022-02-19 15:57] LABS: Glucose, Whole Blood 131 mg/dL (60-115)
[2022-02-19] MEDS: Dextrose 5 % and 0.9 % NaCl 1,000 ML 60 ML IVCONT (16:47)
[2022-02-19 19:52] VITALS: BP 153/72; PULSE 69; RESP 17; TEMP 36.3; O2SAT 99
[2022-02-19 19:59] LABS: Glucose, Whole Blood 114 mg/dL (60-115)
[2022-02-20] VITALS: BP 143/65; PULSE 65; RESP 18; TEMP 36.2; O2SAT 99
[2022-02-20] MEDS: Enoxaparin Sodium 40 MG/0.4 ML SYRINGE SUBCUT (00:50)
[2022-02-20 04:00] VITALS: BP 133/63; PULSE 69; RESP 18; TEMP 36.1; O2SAT 97
[2022-02-20] MEDS: Dextrose 5 % and 0.9 % NaCl 1,000 ML 60 ML IVCONT (06:12)
[2022-02-20 07:46] VITALS: BP 137/62; PULSE 66; RESP 18; TEMP 36.7; O2SAT 99
[2022-02-20 07:55] LABS: Glucose, Whole Blood 106 mg/dL (60-115)
[2022-02-20] MEDS: Famotidine/PF 20 MG/2 ML VIAL IVPUSH (08:18)
--- NOTE | 2022-02-20 09:13 | PM.PNGS ---
Subjective Subjective Date of Service: 02/20/22 Interval history: feels well denies pain good PO intake with clears Physical Exam Vital Signs: Vital Signs: Last Vital Signs Temp 98.0 F 02/20/22 07:46 Pulse 66 02/20/22 07:46 Resp 18 02/20/22 07:46 BP 137/62 02/20/22 07:46 Pulse Ox 99 02/20/22 07:46 O2 Del Method 02/20/22 07:46 BMI result Body Mass Index 23.2 Const: General: comfortable and no acute distress Resp: Effort & Inspection: normal respiratory effort Cardio: Rate: regular rate GI: Palpation (GI): Soft to palpation, not firm and nontender Objective Data Active Medications Dextrose (Dextrose 50 % 25 Gm/50 Ml Syringe) 25 gm IVPUSH Q15M PRN; Protocol PRN Reason: per Hypoglycemia Standing Ord. Dextrose (Dextrose 50 % 25 Gm/50 Ml Syringe) 25 gm IVPUSH Q15M PRN; Protocol PRN Reason: per Hypoglycemia Standing Ord. Enoxaparin Sodium (Enoxaparin Sodium 40 Mg/0.4 Ml Syringe) 40 mg SUBCUT Q24H [facility]S INCLUDE 234 BEDS AT [facility] Last Admin: 02/20/22 00:50 Dose: 40 mg Documented By: SO Famotidine (Famotidine/Pf 20 Mg/2 Ml Vial) 20 mg IVPUSH DAILY [facility] 234 BEDS AT [facility] Last Admin: 02/20/22 08:18 Dose: 20 mg Documented By: DOC Glucose (Glucose Gel 15 Gm Gel..Gram.) 15 gm PO Q15M PRN; Protocol PRN Reason: per Hypoglycemia Standing Ord. Glucose (Glucose Gel 15 Gm Gel..Gram.) 15 gm PO Q15M PRN; Protocol PRN Reason: per Hypoglycemia Standing Ord. Dextrose/Sodium Chloride (D5ns) 1,000 mls @ 60 mls/hr IVCONT .[id number] [facility]S [facility]CLUDE 234 BEDS AT THE [facility] Last Admin: 02/20/22 06:12 Dose: 60 mls/hr Documented By: SO Insulin Human Lispro (Insulin Lispro 100 Unit/Ml 3 Ml Vial) 0 unit SUBCUT QIDACHS COUNTS INCLUDE 234 BEDS AT THE [facility]; Protocol Last Admin: 02/20/22 07:57 Dose: Not Given Documented By: DOC Non-Admin Reason: No Insulin Coverage Morphine Sulfate (Morphine Sulfate 4 Mg/Ml Cartridge) 4 mg IVPUSH Q4H PRN; Protocol PRN Reason: Pain, Severe (Pain Scale 7-10) Last Admin: 02/18/22 22:31 Dose: 4 mg Documented By: IVONNE Ondansetron HCl (Ondansetron Hcl 4 Mg/2 Ml Vial) 4 mg IVPUSH Q8H PRN PRN Reason: Nausea and Vomiting Last Admin: 02/17/22 18:08 Dose: 4 mg Documented By: DILAN Sodium Chloride (0.9 % Sodium Chloride Flush 3 Ml Syringe) 3 ml IVFLUSH [facility] Last Admin: 02/20/22 07:11 Dose: Not Given Documented By: DOC Non-Admin Reason: IV Running Labs CBC & Chem 7: 02/16/22 17:18 02/18/22 14:16 Labs: Laboratory Results - last 24 hr 02/19/22 02/19/22 02/19/22 11:22 15:43 19:54 POC Glucose 154 H 131 H 114 02/20/22 07:44 POC Glucose 106 Procedures Date of Service Date of Service: 02/20/22 Progress Note: A&P Assessment and plan (1) Partial bowel obstruction: Status: Acute Assessment and Plan: sumptoms resolved diet as tolerated abd soft good oral intake with passage of stools and flatus likely dc home later today Time Spent With Patient Time: Total time spent is greater than 50% in coordination of care (as documented) at patient's floor/unit and/or counseling patient: Quality Stroke Does the patient have a stroke diagnosis?: No VTE Prior VTE?: No VTE Risk Level:: Medical - moderate - high VTE Device Contraindication: N/A - Device Ordered VTE Drug Contraindication: N/A - Med Ordered
--- NOTE | 2022-02-20 11:03 | PM.HEMONCPN ---
Medical Summary - Medical Summary Date of Service: 02/20/22 Interval History Interval history: Sheryl Espinoza is a 66 year old female who had surgery 2 days ago for probable gastric cancer. Pathology results are pending. She has been see by Dr. Cisneros in the past.She feels well and denies pain. Review of Systems - Neurologic Denies numbness PMFSH Medical History: Medical History (Last Reviewed 02/17/22 @ 14:53 by Stacey Krause MD) History of cellulitis Hx of diverticulitis of colon Hypercholesterolemia Lab test negative for COVID-19 virus Type 2 diabetes mellitus with hyperglycemia Functional capacity: independent ambulation Family History: Family History (Last Reviewed 02/17/22 @ 14:53 by Stacey Krause MD) Father Pancreatic cancer Mother NHL (non-Hodgkin's lymphoma) Maternal Grandfather Prostate cancer Maternal Grandmother Diabetes Heart disease Paternal Grandfather Diabetes Son Asthma Surgical History: Surgical History (Last Reviewed 02/17/22 @ 14:54 by Stacey Krause MD) H/O tubal ligation History of esophagogastroduodenoscopy (EGD) History of gastrectomy Hx of appendectomy Hx of colonoscopy Hx of tonsillectomy S/P cholecystectomy Onset Date: ~1988 S/P right knee arthroscopy Onset Date: ~2002 Social History: Social History (Last Reviewed 02/17/22 @ 14:54 by Stacey Krause MD) Living Situation History: Household Members: Spouse Housing: House Are you a primary acute care assistant to a significant other at home: No Do you presently have visiting nurse or other home services: No Tobacco History: Patient Tobacco Use Status: Never used Tobacco Second Hand Smoke Exposure: No Occupation Assessmet: service: No Current occupational status: unemployed Current occupational status: previously employed 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 Dextrose (Dextrose 50 % 25 Gm/50 Ml Syringe) 25 gm IVPUSH Q15M PRN; Protocol PRN Reason: per Hypoglycemia Standing Ord. Enoxaparin Sodium (Enoxaparin Sodium 40 Mg/0.4 Ml Syringe) 40 mg SUBCUT Q24H [facility] Last Admin: 02/20/22 00:50 Dose: 40 mg Famotidine (Famotidine/Pf 20 Mg/2 Ml Vial) 20 mg IVPUSH DAILY [facility] Last Admin: 02/20/22 08:18 Dose: 20 mg Glucose (Glucose Gel 15 Gm Gel..Gram.) 15 gm PO Q15M PRN; Protocol PRN Reason: per Hypoglycemia Standing Ord. Glucose (Glucose Gel 15 Gm Gel..Gram.) 15 gm PO Q15M PRN; Protocol PRN Reason: per Hypoglycemia Standing Ord. Dextrose/Sodium Chloride (D5ns) 1,000 mls @ 60 mls/hr IVCONT .[id number] [facility] Last Admin: 02/20/22 06:12 Dose: 60 mls/hr Insulin Human Lispro (Insulin Lispro 100 Unit/Ml 3 Ml Vial) 0 unit SUBCUT QIDACHS [facility]; Protocol Last Admin: 02/20/22 07:57 Dose: Not Given Morphine Sulfate (Morphine Sulfate 4 Mg/Ml Cartridge) 4 mg IVPUSH Q4H PRN; Protocol PRN Reason: Pain, Severe (Pain Scale 7-10) Last Admin: 02/18/22 22:31 Dose: 4 mg Ondansetron HCl (Ondansetron Hcl 4 Mg/2 Ml Vial) 4 mg IVPUSH Q8H PRN PRN Reason: Nausea and Vomiting Last Admin: 02/17/22 18:08 Dose: 4 mg Sodium Chloride (0.9 % Sodium Chloride Flush 3 Ml Syringe) 3 ml IVFLUSH QSHIFT [facility] Last Admin: 02/20/22 07:11 Dose: Not Given Home Medications Medication Instructions Recorded Confirmed Type multivitamin 1 tab PO DAILY 05/11/20 02/17/22 History famotidine 20 mg tablet 1 tab PO DAILY 02/17/22 02/17/22 History insulin glargine 100 unit/mL (3 10 unit subcut QPM 02/17/22 02/17/22 History mL) subcutaneous pen (Lantus Solostar U-100 Insulin) sucralfate 1 gram tablet 1 tab PO TID 02/17/22 02/17/22 History Allergies Allergy/AdvReac Type Severity Reaction Status Date / Time meperidine [From Demerol] Allergy Severe Swelling Verified 02/04/22 10:49 Exam Vital signs: Vital Signs Temp 98.0 F 02/20/22 07:46 Pulse 66 10/16/22 07:46 Resp 18 02/20/22 07:46 BP 137/62 02/20/22 07:46 Pulse Ox 99 02/20/22 07:46 O2 Del Method 02/20/22 07:46 Intake & Output 02/19/22 02/20/22 02/20/22 18:59 06:59 18:59 Intake Total 1184 / 2229 1045 / 2229 Balance 1184 / 2229 1045 / 2229 Intake: Intake, Oral Amount 240 / 480 240 / 480 Intake, IV Amount 944 / 1749 805 / 1749 Dextrose 5 % and 0.9 % NaCl 1, 944 / 1749 805 / 1749 000 ml @ 60 mls/hr IVCONT . [id number] [facility] Rx#:[id number] Other: NPO No Lunch % Eaten 100% Number of Unmeasured Voids 3 2 Urine Bathroom Bathroom Last Bowel Movement 02/19/22 Weight 53.977 kg BMI result Body Mass Index 23.2 - Constitutional Present: no acute distress - Routine HEENT Exam Head: Present: atraumatic ENT: Present: normal exam - Routine Neck Exam Present: full ROM - Routine Respiratory Exam Present: decreased breath sounds - Routine Cardiovascular Exam Cardiovascular: Present: RRR - Routine Abdominal Exam Present: diminished bowel sounds - Routine Extremities Exam Present: nontender - Routine Back/Spine/Pelvis Exam Back/Spine: Present: no CVA tenderness Data - Labs CBC & Chem 7: 02/16/22 17:18 02/18/22 14:16 Labs: 02/16/22 17:18 Bilirubin Direct Stat Complete Blood Count Auto Diff Stat Comprehensive Met. Panel Stat Lipase Stat 02/16/22 20:19 0.9 % Sodium Chloride [Ns] 1,000 ml IV 999 mls/hr Morphine Sulfate 4 mg IVPUSH ONCE STA ondansetron HCL [Zofran] 4 mg IVPUSH ONCE ONE 02/16/22 20:20 CT abdomen pelvis w IV con Stat 02/16/22 21:21 iohexoL 350 MG/ML [Omnipaque 350 MG/ML] 100 ml IV ONCE ONE 02/16/22 23:24 NG/OG Tube Insert/Maintain NOW 02/17/22 00:25 NPO Diet 02/17/22 00:30 0.9 % Sodium Chloride [Ns] 1,000 ml IVCONT 100 mls/hr 02/17/22 00:35 XR chest 1V Stat 02/17/22 04:59 Basic Metabolic Panel DAILY@0600 Magnesium DAILY@0600 02/17/22 10:09 COVID-19 ID NOW ([place]) Stat 02/17/22 15:01 Lidocaine HCl 2 % MPF [Xylocaine 2 % MPF] 2 ml .ROUTE .STK-MED ONE propofoL [Diprivan] 200 mg IVPUSH .STK-MED ONE 02/17/22 17:14 Glucose, Whole Blood Routine 02/17/22 17:34 Dextrose 50 % [D50] 25 gm IVPUSH .STK-MED ONE 02/17/22 17:35 Dextrose 50 % [D50] 25 gm IVPUSH ONCE ONE 02/17/22 18:01 Glucose, Whole Blood Routine 02/18/22 [place] upper GI small bowel Routine 02/18/22 07:28 Glucose, Whole Blood Routine 02/18/22 07:30 Insulin Lispro [Humalog] See Protocol SUBCUT QIDACHS 02/18/22 11:19 Glucose, Whole Blood Routine 02/18/22 11:28 Lidocaine HCl 1 % MPF [Xylocaine 1 % MPF] 2 ml .ROUTE .STK-MED ONE Sugammadex Sodium [[place]] 200 mg IVPUSH .STK-MED ONE propofoL [Diprivan] 200 mg IVPUSH .STK-MED ONE 02/18/22 11:30 Rocuronium [place] [Zemuron] 100 mg IV .STK-MED ONE 02/18/22 14:16 Albumin Level Stat Basic Metabolic Panel Stat Magnesium Stat Phosphorus Stat 02/18/22 15:52 Glucose, Whole Blood Routine 02/18/22 16:30 Potassium Chloride Packet [Klor-Con Packet] 40 meq PO Q4H 02/18/22 18:57 Glucose, Whole Blood Routine 02/19/22 07:32 Glucose, Whole Blood Routine 02/19/22 09:29 Clear Liquid Diet 02/19/22 11:22 Glucose, Whole Blood Routine 02/19/22 15:43 Glucose, Whole Blood Routine 02/19/22 19:54 Glucose, Whole Blood Routine 02/20/22 07:44 Glucose, Whole Blood Routine 02/20/22 09:07 Regular Diet Laboratory Last Values WBC 6.0 X10*3/uL (4.8-10.8) 02/16/22 17:18 RBC 3.97 X10*6/uL (4.20-5.50) L 02/16/22 17:18 Hgb 12.4 g/dl (12.0-16.0) D 02/16/22 17:18 Hct 37.6 % (37.0-47.0) 02/16/22 17:18 MCV 94.7 fL (80.0-98.0) 02/16/22 17:18 MCH 31.2 pg (27.0-33.0) 02/16/22 17:18 MCHC 33.0 g/dl (31.0-35.0) 02/16/22 17:18 RDW 13.4 % (11.0-16.0) 02/16/22 17:18 Plt Count 151 X10*3/uL (160-400) L 02/16/22 17:18 MPV 9.9 fL (9.4-12.3) 02/16/22 17:18 Immature Gran % (Auto) 0.3 % (0.0-0.4) 02/16/22 17:18 Neut % (Auto) 75.1 % (45-73) H 02/16/22 17:18 Lymph % (Auto) 17.9 % (20-40) L 02/16/22 17:18 Morgan % (Auto) 5.8 % (2-11) 02/16/22 17:18 Eos % (Auto) 0.7 % (0-4) 02/16/22 17:18 Baso % (Auto) 0.2 % (0-2) 02/16/22 17:18 Lymph # (Auto) 1.1 X10*3/uL (1.2-4.9) L 02/16/22 17:18 Morgan # (Auto) 0.4 X10*3/uL (0.1-1.2) 02/16/22 17:18 Eos # (Auto) 0.0 X10*3/uL (0.0-0.4) 02/16/22 17:18 Baso # (Auto) 0.0 X10*3/uL (0.0-0.2) 02/16/22 17:18 Abs Immat Gran (auto) 0.02 X10*3/uL (0.00-0.03) 02/16/22 17:18 Absolute Neuts (auto) 4.5 x10*3/uL (2.0-8.3) 02/16/22 17:18 Absolute Nucleated RBC 0.000 X10*3/uL (0.0-0.012) 02/16/22 17:18 Nucleated RBC % (auto) 0.0 /100WBC (0.0-0.2) 02/16/22 17:18 Sodium 144 mmol/L (135-145) 02/18/22 14:16 Potassium 3.1 mmol/L (3.3-5.1) L 02/18/22 14:16 Chloride 105 mmol/L (96-108) 02/18/22 14:16 Carbon Dioxide 28 mmol/L (22-29) 02/18/22 14:16 Anion Gap 14 (12-20) 02/18/22 14:16 BUN 8 mg/dL (9-16) L 02/18/22 14:16 Creatinine 0.56 mg/dL (0.5-1.4) 02/18/22 14:16 Estim Creat Clear Calc 71.0 02/18/22 14:16 Estimated GFR > 60 02/18/22 14:16 POC Glucose 106 mg/dL (60-115) 02/20/22 07:44 Random Glucose 166 mg/dL (60-115) H 02/18/22 14:16 Calcium 8.8 mg/dL (8.4-10.2) 02/18/22 14:16 Phosphorus 2.8 mg/dL (2.7-4.5) 02/18/22 14:16 Magnesium 1.8 mg/dL (1.6-2.6) 02/18/22 14:16 Total Bilirubin 0.7 mg/dL (0.0-1.0) 02/16/22 17:18 Direct Bilirubin 0.3 mg/dL (0.0-0.5) 02/16/22 17:18 AST 26 U/L (5-31) 02/16/22 17:18 ALT 17 U/L (0-31) 02/16/22 17:18 Alkaline Phosphatase 123 U/L (39-117) H D 02/16/22 17:18 Total Protein 7.1 g/dL (6.5-8.0) 02/16/22 17:18 Albumin 3.7 g/dL (3.5-5.0) 02/18/22 14:16 Lipase 9 U/L (8-78) 02/16/22 17:18 COVID-19 (DERECK) Negative (Negative) 02/17/22 10:09 COVID-19 Clin Com See Note 02/17/22 10:09 - Imaging Radiologist's impression: ITS Impressions Abdomen/Pelvis CT 02/16/22 21:22 IMPRESSION: Status post gastrectomy. There is dilatation to the proximal jejunal loops with small bowel stool up to a focal transition point in the region of small bowel anastomotic staple line in the left midabdomen. Bowel distal to this area is decompressed. Appearance would be consistent with an early or partial small bowel obstruction with stool and air still seen within the colon. Chest X-Ray 02/17/22 00:47 IMPRESSION: Enteric tube tip extends approximately 3 cm below the level of the hiatus. Upper GI and Small Bowel X-Ray 02/18/22 10:55 IMPRESSION: KUB reveals a radiopaque pin anteverted L-shaped in the right mid abdomen. Its location is not known. There is enteric tube in the distal esophagus. Total gastrectomy changes are present. The esophagus appears widely patent. The end-to-side anastomosis of esophagus to small bowel is patent. There is normal progression of small bowel by 30 minutes to ileocecal junction. No obstruction, narrowing or stricture seen. Assessment and Plan Patient Active problem list reviewed?: Yes (1) History of gastrectomy Start date: 02/19/22 Problem details: Gastrectomy, omentectomy, esophagojejunostomy, Melyssa-en-Y for gastric cancer Dr. Rajan December 2020 Status: Acute Assessment and plan: Will await pathologyat this time. She remains quite stable. Wants to go home. - Time Spent With Patient Time Spent with Patient (in minutes): 15
[2022-02-20 11:26] VITALS: BP 145/65; PULSE 60; RESP 18; TEMP 36; O2SAT 99
[2022-02-20 11:40] LABS: Glucose, Whole Blood 188 mg/dL (60-115)
[2022-02-20] MEDS: Insulin Lispro 100 UNIT/ML 3 ML VIAL SUBCUT (12:05)
--- NOTE | 2022-02-20 13:56 | MHC.CM.PN ---
Patient has been medically cleared for dc to home today, self care. Last IMM addressed on 02/18/22.
[2022-02-20] MEDS: Heparin Sodium,Porcine Flush 500 UNIT/5 ML SYRINGE IVFLUSH (14:48)
[2022-02-20 15:45] VITALS: BP 128/60; PULSE 71; RESP 17; TEMP 36.3; O2SAT 99
--- NOTE | 2022-02-24 12:58 | PM.DS ---
DS: Providers Provider Date of Service: 02/20/22 Date of admission: 02/17/22 00:43 Primary care physician: Zachary Clark MD Attending physician on admission: Hiwot Alex Jenn Consults: 02/17/22 08:22 Consult to Gastroenterology Routine Consulting Provider: Albino Kay Reason for consultation: pt known to you, gastric CA s/p gastrectomy, SBO Consult to Hematology / Oncology Routine Consulting Provider: June Cisneros Reason for consultation: SBO, gastric CA s/p gastrectomy 02/18/22 16:03 Consult to Hospitalist Routine Consulting Provider: Hospitalist Reason For Exam: DM Attending physician on discharge: Andrew Mao DS: Diagnosis Discharge Diagnosis (1) Partial bowel obstruction: Status: Acute DS: Summary Hospital Course Hospital Course: BRIEF HPI: Sheryl Espinoza is a 66 year old female who presents to the ED with vomiting. She has an extensive medical history significant for gastric CA s/p gastrectomy lymphadenectomy and omentectomy, Melyssa-en-Y reconstruction with end-to-side esophagojejunostomy (retro colic) in 12/26 and is further being managed by Dr. Cisneros and undergoing chemotherapy (currently on hold). She has had two EGDs with dilatation for dysphagia, last 09/26, with improvement in her symptoms. No recurrent CA on biopsies 06/29 endoscopy. She comes in with c/o umbilical pain that started Monday. The pain is crampy in nature. She then began vomiting. She denies flatus or BM since Monday morning. She denies fever, chills, diarrhea, coffee ground emesis, hematemesis. Work up in the ED included a CT scan which showed focal dilatation of the small bowel in the proximal jejunum with a focal transition point in the left midabdomen near small bowel anastomotic staple line with distal small bowel decompressed and air in the colon. CBC, BMP all WNL. An NGT was inserted in the ED and admission to the surgical service requested. She reports feeling a little better with improvement in her pain since NGT insertion. She also reports that she has had difficulty and painful swallowing since November. She saw Dr. Cisneros at the end of January who referred her back to GI for repeat endoscopy. HOSPITAL COURSE: The patient was admitted to the surgical service for further treatment of the SBO. A GI and heme/onc consult was obtained given her gastric CA and gastrectomy history. Hospitalist consult was obtained for management of her diabetes mellitus. She had an uncomplicated hospital course. She continued to improve symptomatically with supportive measures. It was difficult to clearly define her anatomy on CT scan especially where the fecalization was seen and therefore upper GI series was ordered with gastrograffin prior to enteroscopy intervention. She actually began to pass flatus and have bowel movements prior to this. Her NGT was clamped following the initial series and overnight and she remained asymptomatic. Completion of the GI series showed progression of contrast distally and past the original suspected transition point. The NGT was removed the following day and she was started on clear liquids. She was tolerating liquids and her diet was advanced to solids. She remained asymptomatic throughout this time and was tolerating a solid diet with good GI function. She felt well and back to baseline. Her abdomen was soft, non distended and non tender. Given her dysphagia, GI set up repeat EGD for balloon dilatation with possible intralesional steroid inj to be scheduled as outpatient. The patient felt ready for discharge. She was discharged to home on 02/20/22 in stable condition. She is to follow up with GI and her PCP upon discharge. Status at Discharge Functional status at discharge: independent ambulation Overall status at discharge: patient is back to baseline Time Spent with Patient Time attestation: Total time spent providing and/or coordinating discharge services: Discharge coordination time: Greater than 30 minutes Quality: Safe Use of Opioids Does Pt have an Active Cancer Diagnosis on the Problem List?: Yes Opioid Measure Date for [facility] Report: 01/26/22 Opioid Measure Time for [facility] Report: 10:01 Quality: Stroke Does the patient have a stroke diagnosis?: No Physical Exam Vital Signs: Vital Signs: Last Vital Signs Temp 97.4 F 02/20/22 15:45 Pulse 71 02/20/22 15:45 Resp 17 02/20/22 15:45 BP 128/60 02/20/22 15:45 Pulse Ox 99 02/20/22 15:45 O2 Del Method 02/20/22 15:45 BMI result Body Mass Index 23.2 Const: General: comfortable, no acute distress and alert Nutritional Appearance: thin Orientation/consciousness: patient oriented x3 Resp: Effort & Inspection: normal respiratory effort GI: Inspection: No distended Palpation (GI): Soft to palpation, nontender and no guarding Skin: General skin exam: no rashes or lesions noted Neuro: General: patient oriented x3 and moves all extremities Discharge Plan Discharge Anticipated Discharge Date/Time: 02/20/22 10:12 Patient Disposition: Home, Self-Care Discharge Diagnosis: small bowel obstruction Referrals: Zachary Clark MD [Primary Care Provider] - 1 Week Grazyna Campbell MD [Physician] - 1 Week Discharge Medications: Continued (DME) FreeStyle Michele 14 Day [place] Misc See Rx Instructions .ROUTE .MEDSUPPLY Qty: 1 0RF Rx Instructions: As directed multivitamin Tablet 1 tab PO DAILY ondansetron 8 mg Tablet,Disintegrating 8 mg PO Q8H Qty: 60 4RF oxycodone 5 mg Tablet 5 mg PO Q6H PRN (Reason: Breakthrough Pain, Mild) Qty: 60 0RF Rx Instructions: Partial Fill upon patient request. sucralfate 1 gram tablet 1 tab PO TID famotidine 20 mg tablet 1 tab PO DAILY insulin glargine [Lantus Solostar U-100 Insulin] 100 unit/mL (3 mL) insulin pen 10 unit subcut QPM (DME) pen needle, diabetic [BD Ultra-Fine Mini Pen Needle] 31 gauge x 3/16 needle See Rx Instructions .ROUTE .MEDSUPPLY Qty: 100 3RF Rx Instructions: As directed Inject 10 U lantus QD zinc gluconate 50 mg tablet 50 mg PO DAILY Qty: 90 0RF Discharge Orders: Discharge Order (Routine); Ordered 02/20/22 Ordered By: Andrew Mao Activity on Discharge: As tolerated Stand Alone Forms: Patient Portal Discharge page Care Plan Goals: continue treatment for gastric ca Health Concerns: hx of gastric ca dysphagia Plan of Treatment: ffup with GI ffup with oncology Assessment: doing well Discharge Date/Time: 02/20/22 16:11
== END 2022-02-20 16:11 | disposition home or self-care (01) | DRG 390 ==
LOC: HO.ED 02-17 00:38 → HO.EDOVER 02-17 00:48 → HO.S3 02-17 11:10
PROVIDERS: Emergency Medicine Emergency Medical Services; Physician Assistant Surgical; Admitting Provider Surgery; Emergency Provider Internal Medicine; PCP Internal Medicine; Visit Provider Surgery
DX: K56.600 Partial intestinal obstruction, unspecified as to cause (principal); R13.14 Dysphagia, pharyngoesophageal phase; E11.9 Type 2 diabetes mellitus without complications; Z20.822 Contact with and (suspected) exposure to COVID-19; Z98.0 Intestinal bypass and anastomosis status; Z85.028 Personal history of other malignant neoplasm of stomach; Z56.0 Unemployment, unspecified; Z90.3 Acquired absence of stomach [part of]; Z79.4 Long term (current) use of insulin; Z79.899 Other long term (current) drug therapy
CPT/HCPCS: 36415; 71045; 74177; 74240; 74248; 80048; 80053; 82040; 82248; 82947; 83690; 83735; 84100; 85025; 87635; 99285; J1642; J1650; J2270; J2405; Q9967

== ENCOUNTER 2022-02-25 12:34 | Day surgery (SDC) | payer MEDICARE, SELFPAY ==
[2022-02-25 12:55] VITALS: BMI 19.7
[2022-02-25 13:11] VITALS: BP 137/65; PULSE 63; RESP 15; TEMP 36.3; O2SAT 99
[2022-02-25 13:14] LABS: Glucose, Whole Blood 81 mg/dL (60-115)
[2022-02-25] MEDS: Lactated Ringers 1,000 ML 100 ML IVCONT (13:30)
--- NOTE | 2022-02-25 13:51 | MHC.SHP ---
Pre-Procedural Eval Section A Date of Service: 02/25/22 The patient is an INPATIENT: No Changes since office visit: Yes Patient answered all questions; No Cold of Flu in the past 2 weeks, No New Medical Problems and No Changes in Medication The History & Physical has been completed within 30 days and I have reviewed it.: Yes Section B Chief Complaint: Dysphagia, Details of Present Illness: dysphagia Relevant Family History (Specify if Yes): Yes Relevant Social History: None Present Medications: see Short Stay Collaborative assessment Medical History: Significant History (History of cellulitis Hx of diverticulitis of colon Hypercholesterolemia Lab test negative for COVID-19 virus Type 2 diabetes mellitus with hyperglycemia) History of Previous Operations: Relevant previous surgery/procedure and date(s) (H/O tubal ligation History of esophagogastroduodenoscopy (EGD) History of gastrectomy Hx of appendectomy Hx of colonoscopy Hx of tonsillectomy S/P cholecystectomy (~1988) S/P right knee arthroscopy (~2002)) Allergies: Allergies Allergy/AdvReac Type Severity Reaction Status Date / Time meperidine [From Demerol] Allergy Severe Swelling Verified 02/04/22 10:49 Plan I have reviewed the history and physical and performed a pertinent physical examination on my patient. No changes have occurred unless specified.
--- NOTE | 2022-02-25 13:59 | W.PM.OPN ---
Operative Note Operative Note Date of Service: 02/25/22 Narrative: Pre-op diagnosis: dysphagia, Pt is status post total gastrectomy with end to side esophago-jejunal anastomsis Post-op diagnosis:?same Procedure: FLEXIBLE TRANSORAL UPPER GASTROINTESTINAL ENDOSCOPY WITH BIOPSIES AND ESOPHAGEAL BALLOON DILATION Consent:?Indications for the procedure and potential complications of bleeding, perforation, reaction to medications and missed diagnosis were discussed with the patient and informed consent was obtained. Instrument:?Olympus GIF H 190 mid size upper endoscope Monitoring: Vital signs and clinical assessment, continuous EKG monitoring, Pulse oximetry, Carbon Dioxide monitoring and blood pressure monitoring were done throughout the procedure. Procedure:?The patient was placed in the left lateral decubitis position and pre-procedure medications were administered and a bite block was placed. The endoscope was inserted into the mouth and advanced under direct vision to the third part of duodenum. A careful inspection was made as the upper endoscope was withdrawn including a retroflexed examination of the proximal stomach; Findings and interventions are described below. Findings: Larynx:? Normal Esophagus: Tortuous esophagus with increased tertiary contractions without stricture or ring. Normal appearing anastomosis and a fibrotic ring noted at the anastomotic site without narrowing - biopsied.? Empiric balloon dilation of esophago-jejunal anstomosis with a 20 mm (60F) CRE balloon x 60 seconds and no tear noted. Stomach:? Surgically removed Jejunum: Afferent and efferent limbs of james loop were examined and appeared normal. Intervention: Biopsies and balloon dilation as noted above Impression and Post Procedure Diagnosis: Endoscopy Findings: ESOPHAGUS: Tortuous esophagus with increased tertiary contractions without stricture or ring. Normal appearing anastomosis and a fibrotic ring noted at the anastomotic site without narrowing - biopsied.? Empiric baloon dilation of esophago-jejunal anstomosis with a 20 mm (60F) CRE balloon x 60 seconds and no tear noted. STOMACH: surgically removed Plan: Await pathology results Patient was advised to call the GI clinic if she had recurrent dysphagia. Above findings were reviewed with the patient. Surgeon: Master Fields MD Anesthesia:?MAC (Dr Krause) Was an Timber Skidder used for this Procedure?:?Yes Timber Skidder:?Danna Yates Estimated blood loss (mL):?0 Pathology:?other ( A. esophageal-duodenal anastomosis bxs) Condition:?stable Disposition:?PACU
[2022-02-25 14:29] VITALS: BP 113/47; PULSE 68; RESP 13; TEMP 36.2; O2SAT 100
[2022-02-25 14:44] VITALS: BP 123/66; PULSE 65; RESP 16; TEMP 36.2; O2SAT 100
== END 2022-02-25 15:11 | disposition home or self-care (01) ==
PROVIDERS: PCP Internal Medicine; Visit Provider Internal Medicine Gastroenterology
PROC: (CPT 43249; principal; 2022-02-25 14:00)
DX: R13.10 Dysphagia, unspecified (principal); K22.89 Other specified disease of esophagus; Z87.19 Personal history of other diseases of the digestive system; Z90.3 Acquired absence of stomach [part of]; Z98.0 Intestinal bypass and anastomosis status; E11.65 Type 2 diabetes mellitus with hyperglycemia; Z79.4 Long term (current) use of insulin; Z79.899 Other long term (current) drug therapy; Z90.49 Acquired absence of other specified parts of digestive tract
CPT/HCPCS: 43249; 43239; 82947; 88305; C1726

== ENCOUNTER 2023-02-02 07:16 | Outpatient (AMB) | payer MEDICARE, SELFPAY ==
--- NOTE | 2023-02-02 07:30 | A.OFFVIS_ITS ---
Intake Vital Signs 02/02/23 07:38 02/02/23 08:09 Height 5 ft 4 in Weight 130 lb BMI 22.3 BP 170/79 H 164/76 H Blood Pressure Location Lt brachial Lt brachial Position Sitting Sitting Pulse 74 Intake Visit Reasons: follow up Intake Note: Patient follow up for dysphagia, Diverticulitis and Endoscopy results. Patient cc: swallowing problems with both solid and liquid with Esophagus pain. 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 Pt was seen by Dr Cisneros on 12/22/22: Assessment and plan: CEA 3.90. On 11/05 it was 3.70. Since the CT scan, upper endoscopy and PET scan, are negative, she wanted to take a break from chemotherapy. I referred her to Dr. Kay to look at the tongue lesion. He referred her for ENT consultation. ENT appointment is in March. Meanwhile to try zinc. I gave her Magic mouthwash to see if it is some sort of an infectious lesion. That has resolved. She is doing well however has had recurrence of her intermittent dysphagia. She even has occasional vomiting. CEA level: 3.50 today, previously, 4.1, before that it was 3. She underwent an upper endoscopy with dilatation on 02/25/22. That helped. Fortunately no residual carcinoma was seen in the stomach. She has been getting dysphagia more frequently. CEA: 3.60. PLAN: She would like to proceed with an endoscopy with dilatation - will call GI. She will continue to be monitored. She will continue to focus on nutrition to keep her strength up, in the meantime. She will return in 3 months for a follow up. ?IMAGING STUDIES:? 10/19/[address] SCAN SHOWED: Unremarkable CT chest with no pulmonary nodule or mass. Right central venous port tip is in the distal SVC. ?Moderate sized hiatal hernia. There is a large stool in the colon suggestive of severe constipation. ?No abnormal sized abdominal lymph nodes seen. ?Distended urinary bladder. ENDOSCOPIC STUDIES: 06/21/21 EGD SHOWED: ESOPHAGUS: Tortuous esophagus with increased tertiary contractions without stricture or ring. Normal appearing anastomosis in the distal esophagus with a 2 cms patch of c olumner epithelium - biopsied.? Empiric baloon dilation of esophago-jejunal anstomosis with an 18 mm (54F) CRE balloon x 60 seconds. JEJUNUM: Afferent and efferent limbs of james loop were examined and appeared normal - jejunal biopsies were obtained to check for celiac sprue Plan: Schedule a bariums swallow with SBFT to evaluated distal small bowel anastomosis. Above findings were reviewed with the patient. BIOPSIES SHOWED: A.? Small bowel, biopsy:? Small intestinal mucosa within normal limits; negative for celiac disease. B.? Anastomosis, biopsy: - Squamocolumnar mucosa with moderate ch ronic active inflammation. - Detached fragment of intestinal/intest inalized mucosa with active inflammation. 04/24/20 EGD showed: ESOPHAGUS: Circular folds in the esophagus - biopsies obtained from proximal esophagus to check for EOE.? GE junction at 36 cms with 1 cms focal area of erosions and ulcers at the GE junction.. STOMACH: A 2 cms focal area of edematous folds with submucosal hemorrhages in gastric body along lesser curvature - biopsies were obtained.? Mild gastric erythema with antral erosions.. Biopsies were obtained. Colonoscopy Findings:? One small polyp removed Moderate diverticulosis seen in the left colon Plan:? Repeat Colonoscopy interval based on path results - in 5 years if polyp is adenomatous and 10 years if polyp is hyperplastic. Above findings were reviewed with the patient and GERD, colon polyps and diverticulosis handouts were given in the discharge area BIOPSIES SHOWED: A.? Stomach, biopsy:? Antral-type mucosa with moderate chronic erosive inflammation and surface hyperplastic changes; no Helicobacter organisms seen. B.? Stomach, body, biopsy:? Poorly differentiated carcinoma.? See description a nd comment. C.? Esophagus, proximal, biopsy:? Squamous epithelium within normal limits; no inflammation seen. D.? Colon, random right, biopsy:? Colonic mucosa within normal limits. E.? Colon, random left, biopsy:? Colonic mucosa within normal limits. F.? Rectum, polypectomy:? Hyperplastic mucosal polyp. Pt called with EGD and Colon bx results.? Gastric bx show poorly diffrentiated carcinoma - ? metastatic breast Ca. Pt denies a hx of breast cancer or feeling a breast mass. Advised to schedule a Mammogram and see Oncology TODAY'S VISIT: Pt is accompanied by her SO Recurrent dysphagia for the past 2-3 months - mostly solids and if she drinks liquids too fast. Notes pain at the breast bone when food is stuck. Can have regurgitation with dysphagia If she is able to burp she notes relief of pain Denies constipation or diarrhea. PAST VISITS: Elizabeth better after last EGD and noted recurrent symptoms after 2 weeks. Notes dysphagia to solids Sometimes she has to burp or regurgitate the food back up. Sucralfate is helping - taking three times a day. Has been taking Ensure 1 can a day. Loosing weight Not feeling to good Chemo is on hold Scheduled for a EUS on 11/25/[address] Blanco. Abdominal pain has improved. Appetite fluctuates. Takes Omeprazole prn 2 times a week when she notes heartburn. Has 3 soft BMs daily usually in the am and none the rest of the day. Noted some sharp intermittent abdominal pain yesterday when she woke up - none today Weighed 140 lbs before the chemo Wt fluctuates between 132 to 135 lbs. Family history: Dad had pancreatic cancer at the age of 67. Mom had non-Hodgkin's lymphoma. 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 She has 3 children.? She smoked as a teenager.? She rarely drinks. PAST GI HISTORY BY REVIEW OF MEDICAL RECORDS: 03/02/20 patient was seen in consultatio n during hospitalization at [facility] [place] 64 YF with DM seen at [facility] ED on 03/01/20 with 3 day hx of left flank pain and dysurea. Abd pain was accompanied by decreased appetite, nausea and an episode of vomiting on 02/28/[address] scan showed: 1. Short segment mural thickening and pe ricolonic infiltrative changes in the proximal descending colon most consistent with acute diverticulitis or short segment colitis as a definitive diverticulum is not seen. 2. Mild left pelvocaliectasis without ob structing abnormality could be secondary to left ureteropelvic junction stenosis. Left renal cysts demonstrate benign features. Nonobstructing right upper pole intrarenal calculus. 3. Mild free fluid in the pelvis is pres umed secondary to the colonic findings. 4. Very small hiatal hernia. Pt was started on IV antibiotics and admitted for further management. She notes improvement in abd pain from 02/14 on admission to 08/15 today. She complains of heartburn and odynophagia since yesterday. Patient admits to taking ibuprofen p.r.n. for a back pain. Patient denies major cardiac or pulmonary problems. She notes some snoring but denies obstructive sleep apnea. She denies problems with anesthesia in the past. ?? 64 [facility]F from [facility]) with DM admitted with fever, LLQ/left flank pain, nausea and vomiting.? Lab evaluation showed UTI and preliminary blood culture results showed Gram-negative rods -? likely bacteremia from UTI. Abdominal CT scan showed changes in the descending colon suggestive of diverticulitis.? ? Patient notes improvement in her abdominal pain. Pt denies past evaluation with a colonoscopy. She complains of heartburn and odynophagia. RECOMMENDATIONS: 1.? ? Continue IV antibiotics until abdo vandana pain improves. 2.? ? Start PO Omeprazole for heartburn and odynophagia - order placed. 3. ? Pt will be scheduled for an EGD and Colonoscopy as an outpatient in 5-6 weeks (after diverticulitis resolves) [facility] Medical History (Updated 01/17/23 @ 11:27 by Trover) Type 2 diabetes mellitus with hyperglycemia Lab test negative for COVID-19 virus Hx of diverticulitis of colon History of cellulitis Surgical History Hx of endoscopy History of gastrectomy Hx of colonoscopy History of esophagogastroduodenoscopy (EGD) Hx of appendectomy S/P right knee arthroscopy (~2002) Hx of tonsillectomy H/O tubal ligation S/P cholecystectomy (~1988) Family History Father Pancreatic cancer Mother NHL (non-Hodgkin's lymphoma) Maternal Grandfather Prostate cancer Maternal Grandmother Diabetes Heart disease Paternal Grandfather Diabetes Son Asthma Social History Household Members: Spouse Housing: House Are you a primary child care worker to a significant other at home: No Do you presently have visiting nurse or other home services: No Alcohol intake: current Alcohol intake frequency: does not drink Patient Tobacco Use Status: Never used Tobacco e-Cigarette/Vaping Use: Never Used Second Hand Smoke Exposure: No service: No Current occupational status: unemployed and previously employed 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 Cognitive needs: No Hearing needs: No Vision needs: Yes (glasses) Review of Systems Const All systems reviewed & are unremarkable except as noted in HPI and below Physical Exam Vital Signs: Last Vital Signs Pulse 74 02/02/23 07:38 BP 164/76 H 02/02/23 08:09 BMI result Body Mass Index 22.3 Const General: healthy appearing and no acute distress Nutritional Appearance: average body habitus Orientation/consciousness: patient oriented x3 Limitations: no limitations HEENT Head: Yes normal to inspection Ears: hearing grossly normal bilaterally Eyes Sclerae: sclerae normal Pupils: Equal, round and reactive pupils present Neck Neck: Yes normal visual inspection Chest Chest palpation & inspection: normal inspection of the chest Resp Effort & Inspection: normal respiratory effort Auscultation: clear to auscultation bilaterally Cardio Palpation: normal PMI Rate: regular rate Rhythm: regular rhythm Heart sounds: S1 normal heart sound present, S2 normal heart sound present and no murmurs GI Inspection: Yes scar (midline scar of past gastrectomy) Palpation (GI): Soft to palpation, nontender and No hepatosplenomegaly present Auscultation: normal bowel sounds Rectal Exam - Female: deferred Skin General skin exam: no rashes or lesions noted Neuro General: patient oriented x3, gait normal and moves all extremities Cranial nerves: Yes Equal, round and reactive pupils present Psych Appearance: grossly normal Mental Status: mental status grossly normal Assessment & Plan Assessment & Plan (1) Diverticulitis: Comment: Most likely diverticultis rather than UTI but hematuria concerning Code(s): K57.92 - Diverticulitis of intestine, part unspecified, without perforation or abscess without bleeding (2) Erosive esophagitis: Comment: Continue omeprazole 20 mg daily Code(s): K22.10 - Ulcer of esophagus without bleeding (3) Gastric cancer: Comment: Gastrectomy, omentectomy, esophagojejunostomy, James-en-Y for gastric cancer Code(s): C16.9 - Malignant neoplasm of stomach, unspecified Qualifiers: Malignant neoplasm of stomach location: unspecified location Qualified Code(s): C16.9 - Malignant neoplasm of stomach, unspecified (4) History of gastrectomy: Comment: Gastrectomy, omentectomy, esophagojejunostomy, James-en-Y for gastric cancer Dr. Rajan December 2020 Code(s): Z90.3 - Acquired absence of stomach [part of] Plan 67 YF from [facility]) with DM admitted to [facility] in 02/24 with acute diverticulitis.? Lab evaluation showed UTI and preliminary blood culture results showed Gram- negative rods -? likely bacteremia from UTI. Abdominal CT scan showed changes in the descending colon suggestive of diverticulitis.? 04/24/20 EGD showed 1 cms focal area of erosions and ulcers at the GE junction and a 2 cms focal area of edematous folds with submucosal hemorrhages in gastric body along lesser curvature - biopsies showed poorly differentiated adeno- carcinoma. She then underwent surgery by Dr. Rajan. 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 ?Tumor site:? Residual tumor most prominent along the greater curvature. ?Tumor size:? A distinct tumor mass is not identified grossly.? 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 Patient is being followed by Dr. Cisneros in Oncology Clinic for management of gastric ca. 06/21/21 Pt had an EGD with dilation for dysphagia followed by improvement in her symptoms. No recurrent ca on biopsies. 02/02/23 Pt advised to schedule repeat EGD with dilation in 1-2 weeks. Coding Level of Care Code Est Pt Level 3 (63577) Diagnoses Diverticulitis K57.92 Erosive esophagitis K22.10 Malignant neoplasm of stomach, unspecified location C16.9 Malignant neoplasm of stomach location: unspecified location History of gastrectomy Z90.3 Time Spent (min) 18
[2023-02-02 07:38] VITALS: BP 170/79; PULSE 74; BMI 22.3
[2023-02-02 08:09] VITALS: BP 164/76
== END 2023-02-02 09:01 | disposition home or self-care (01) ==
PROVIDERS: PCP Internal Medicine; Visit Provider Internal Medicine Gastroenterology
DX: K57.92 Diverticulitis of intestine, part unspecified, without perforation or abscess without bleeding (principal); K22.10 Ulcer of esophagus without bleeding; C16.9 Malignant neoplasm of stomach, unspecified; Z90.3 Acquired absence of stomach [part of]
CPT/HCPCS: 99213

== ENCOUNTER → 2023-02-02 07:16 | Outpatient (BNVA) | payer MEDICARE, SELFPAY | PROVIDERS: PCP Internal Medicine; Visit Provider Internal Medicine Gastroenterology | DX: K57.92 Diverticulitis of intestine, part unspecified, without perforation or abscess without bleeding (principal); K22.10 Ulcer of esophagus without bleeding; Z85.028 Personal history of other malignant neoplasm of stomach; Z79.899 Other long term (current) drug therapy; Z90.3 Acquired absence of stomach [part of] | CPT/HCPCS: 99212 ==

== ENCOUNTER 2023-02-03 13:50 | Day surgery (SDC) | payer MEDICARE, SELFPAY ==
--- NOTE | 2023-02-03 14:57 | P.CONAN_ITS ---
[facility] Active Problems Active Problems: All Active Problems (Updated 01/17/23 @ 11:27 by [place] DEPT. [place]) Diverticulitis (Acute) UTI (urinary tract infection) (Acute) Erosive esophagitis (Acute) Gastric cancer (Acute) Coarse tremors (Acute) Loose bowel movements (Acute) History of gastrectomy (Acute) Mouth ulcer (Acute) History of gastrectomy (Acute) Hypercholesterolemia (Acute) Type 2 diabetes mellitus with hyperglycemia (Acute) Past Medical History Medical History Type 2 diabetes mellitus with hyperglycemia Lab test negative for COVID-19 virus Hx of diverticulitis of colon History of cellulitis Family History Family History Father Pancreatic cancer Mother NHL (non-Hodgkin's lymphoma) Maternal Grandfather Prostate cancer Maternal Grandmother Diabetes Heart disease Paternal Grandfather Diabetes Son Asthma Family history of problems with anesthesia: No Surgical History Surgical History Hx of endoscopy History of gastrectomy Hx of colonoscopy History of esophagogastroduodenoscopy (EGD) Hx of appendectomy S/P right knee arthroscopy (~2002) Hx of tonsillectomy H/O tubal ligation S/P cholecystectomy (~1988) History of Problems with Anesthesia: No Social History Social History Household Members: Spouse Housing: House Are you a primary certified social workers in health care to a significant other at home: No Do you presently have visiting nurse or other home services: No Alcohol intake: current Alcohol intake frequency: holidays/special occasions only Patient Tobacco Use Status: Never used Tobacco e-Cigarette/Vaping Use: Never Used Second Hand Smoke Exposure: No Use of substances other than those prescribed or required for medical reasons: No Are you DNR?: No Advance Directives: No Advance Directives Information Provided: Yes Recently lost weight without trying: No Nutrition Risks: No Nutritional Risk service: No Current occupational status: unemployed and previously employed 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 Cognitive needs: No Hearing needs: No Vision needs: Yes (glasses) Meds Allergies Allergy/AdvReac Type Severity Reaction Status Date / Time meperidine [From Demerol] Allergy Severe Swelling Verified 02/02/23 07:28 Home Medications Medication Instructions Recorded Confirmed Last Taken Type multivitamin 1 tab PO DAILY 05/11/20 02/02/23 Unknown History mecobalamin (vitamin B12) 500 mcg mcg PO 02/02/23 02/02/23 Unknown History chewable tablet Exam Exam Date and Time: February 03, 2023 1457 Airway Mallampati Class: III TM Dist: >3cm Neck ROM: Full Partial: Upper and Lower Loose/Missing/Broken Teeth: Yes, Upper and Lower Heart: RRR Lungs: CTA Assessment and Plan Assessment Anesthesia Assessment: Anesthesia Plan Discussed Final Anesthetic Review Family History of Problems with Anesthesia: No History of Problems with Anesthesia: No NPO: Yes ASA Class: III Final Preanesthetic Review: Meds/Allgs Chart Reviewed, Consent Obtained/Reviewed and Anes Risks/Benef Reviewed Patient Risk: Intermediate Procedure Risk: Intermediate Anesthetic Plan Anesthetic Plan: MAC: Disposition: Standard PACU
[2023-02-03 15:03] VITALS: BP 177/68; PULSE 71; RESP 18; TEMP 36.4; O2SAT 100; BMI 22.3
[2023-02-03 15:27] VITALS: BP 167/69
[2023-02-03 15:27] LABS: Glucose, Whole Blood 60 mg/dL (60-115)
--- NOTE | 2023-02-03 16:30 | MHC.SHP ---
Pre-Procedural Eval Section A Date of Service: 02/03/23 The patient is an INPATIENT: No Changes since office visit: Yes Patient answered all questions; No Cold of Flu in the past 2 weeks, No New Medical Problems and No Changes in Medication The History & Physical has been completed within 30 days and I have reviewed it.: Yes Section B Chief Complaint: Ulcer of esophagus without bleeding,diverticulitis Allergies: Allergies Allergy/AdvReac Type Severity Reaction Status Date / Time meperidine [From Demerol] Allergy Severe Swelling Verified 02/02/23 07:28 Plan Diagnosis/Plan: Unchanged I have reviewed the history and physical and performed a pertinent physical examination on my patient. No changes have occurred unless specified. Time Spent With Patient Time: Total time managing care of this patient today ____ minutes.
--- NOTE | 2023-02-03 16:30 | W.PM.OPN ---
Operative Note Operative Note Date of Service: 02/03/23 Narrative: FLEXIBLE TRANSORAL UPPER GASTROINTESTINAL ENDOSCOPY WITH BIOPSIES AND ESOPHAGEAL BALLOON DILATION Pre-op diagnosis: dysphagia, hx of total gastrectomy for gastric cancer Post-op diagnosis: same Endoscopist:? Master Fields MD Anesthesia:?MAC Consent: Indications for the procedure and potential complications of bleeding, perforation, reaction to medications and missed diagnosis were discussed with the patient and informed consent was obtained. Instrument: Olympus GIF H 190 mid size upper endoscope Monitoring: Vital signs and clinical assessment, continuous EKG monitoring, Pulse oximetry, Carbon Dioxide monitoring and blood pressure monitoring were done throughout the procedure. Procedure: The patient was placed in the left lateral decubitis position and pre-procedure medications were administered and a bite block was placed. The endoscope was inserted into the mouth and advanced under direct vision to the third part of duodenum. A careful inspection was made as the upper endoscope was withdrawn including a retroflexed examination of the proximal stomach; Findings and interventions are described below. Findings: Larynx: Normal Esophagus: Tortuous esophagus with increased tertiary contractions without stricture or ring. Normal appearing anastomosis and a fibrotic ring noted at the anastomotic site without narrowing - biopsied.? Empiric balloon dilation of esophago-jejunal anstomosis with a 20 mm (60F) CRE balloon x 60 seconds and no tear noted. Stomach: Surgically removed Jejunum: Afferent and efferent limbs of james loop were examined and appeared normal. Intervention: Biopsies and balloon dilation as noted above Impression and Post Procedure Diagnosis: Endoscopy Findings: ESOPHAGUS: Tortuous esophagus with increased tertiary contractions without stricture or ring. Normal appearing anastomosis and a fibrotic ring noted at the anastomotic site without narrowing - biopsied.? Empiric baloon dilation of esophago-jejunal anstomosis with a 20 mm (60F) CRE balloon x 60 seconds and no tear noted. STOMACH: surgically removed Plan: Await pathology results Patient has an appointment on 04/13/23 in the GI Clinic with Master Fields M.D. Further evaluation with a barium swallow if pt continues to have dysphagia symptoms. Above findings were reviewed with the patient.
--- NOTE | 2023-02-03 16:33 | PC.NURSE ---
Dr. Martino notified patient preop poc-60. new orders anesthesia hanging d5w 250 ml. patient reports asymptomatic hypoglycemia.
[2023-02-03 17:00] VITALS: BP 114/53; PULSE 75; RESP 20; TEMP 36.4; O2SAT 100
[2023-02-03 17:15] VITALS: BP 127/61; PULSE 70; RESP 20; O2SAT 100
--- NOTE | 2023-02-03 17:16 | PC.NURSE ---
PATIENT TAKING PO FLUIDS SWALLOWING WITHOUT ISSUE
--- NOTE | 2023-02-03 17:31 | PC.NURSE ---
PER ANTI D5W GIVEN DURING CASE. PATIENT CONTINUES TO REPORT ASYMPTOMATIC NO SIGNS HYPOGLYCEMIA. TAKING PO FLUIDS AND GIVEN SMALL SNACK.
== END 2023-02-03 17:39 | disposition home or self-care (01) ==
PROVIDERS: PCP Internal Medicine; Visit Provider Internal Medicine Gastroenterology
PROC: (CPT 43249; principal; 2023-02-03 14:30)
DX: K22.10 Ulcer of esophagus without bleeding (principal); K57.30 Diverticulosis of large intestine without perforation or abscess without bleeding; R13.10 Dysphagia, unspecified; C16.9 Malignant neoplasm of stomach, unspecified; Z90.3 Acquired absence of stomach [part of]; E11.65 Type 2 diabetes mellitus with hyperglycemia; Z87.19 Personal history of other diseases of the digestive system; Z98.51 Tubal ligation status; Z90.49 Acquired absence of other specified parts of digestive tract; Z79.899 Other long term (current) drug therapy; Z88.8 Allergy status to other drugs, medicaments and biological substances
CPT/HCPCS: 43249; 43239; 82947; 88305; C1726

== ENCOUNTER → 2023-02-03 13:50 | Outpatient (BNV) | payer MEDICARE, SELFPAY | PROVIDERS: PCP Internal Medicine; Visit Provider Internal Medicine Gastroenterology | DX: R13.10 Dysphagia, unspecified (principal); Z85.028 Personal history of other malignant neoplasm of stomach; Z90.3 Acquired absence of stomach [part of] | CPT/HCPCS: 43239; 43249 ==

== ENCOUNTER 2023-02-23 08:12 | Outpatient (AMB) | payer MEDICARE, SELFPAY ==
--- NOTE | 2023-02-23 08:48 | MHC.PC.OV ---
Vital Signs 02/23/23 08:50 02/23/23 09:24 02/23/23 09:25 Height 5 ft 4 in Weight 130 lb 4 oz BMI 22.4 BP 110/72 138/80 130/74 Blood Pressure Location Lt brachial Rt brachial Lt brachial Position Sitting Sitting Sitting Pulse 88 Pulse Source Pulse Oximeter Pulse Oximetry (%) 98 Oxygen Delivery Method Room Air Intake Visit Reasons: Annual Physical Intake Note: Patient is here today for a physical. 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 ([employer]dis[employer] Michele 14 Day [place]) As directed lisinopril 10 mg PO DAILY mecobalamin (vitamin B12) mcg PO metformin 500 mg PO DAILY multivitamin 1 tab PO DAILY oxycodone 5 mg PO Q6H PRN pen needle, diabetic (BD Ultra-Fine Mini Pen Needle) As directed Inject 10 U lantus QD Tobacco use date assessed: 02/23/23 Fall risk assessment: No Falls in past year Last assessed Fall Risk: 02/23/23 Dental Screening Dental Screen Date: 02/23/23 Did you have a dental visit in the last 12 months?: Yes Did you have a dental problem in the last 6 months where you did not have access to dental care?: No Was dental information given to patient?: Patient has dentist HPI Annual Physical HPI Details 67-year-old female presents to the office requesting an annual physical. Patient was seen at her oncologist her blood pressure was markedly elevated. She is reporting no symptoms of headaches, blurred vision, nausea or vomiting. Patient has also not been taking medications for diabetes. She was taking insulin in the past which she has discontinued. [facility] Medical History (Updated 02/23/23 @ 09:43 by Gabriel Woodard MD) Essential hypertension Type 2 diabetes mellitus with hyperglycemia Lab test negative for COVID-19 virus Hx of diverticulitis of colon History of cellulitis Surgical History Hx of endoscopy History of gastrectomy Hx of colonoscopy History of esophagogastroduodenoscopy (EGD) Hx of appendectomy S/P right knee arthroscopy (~2002) Hx of tonsillectomy H/O tubal ligation S/P cholecystectomy (~1988) Family History Father Pancreatic cancer Mother NHL (non-Hodgkin's lymphoma) Maternal Grandfather Prostate cancer Maternal Grandmother Diabetes Heart disease Paternal Grandfather Diabetes Son Asthma Social History Household Members: Spouse Housing: House Are you a primary child day care provider to a significant other at home: No Do you presently have visiting nurse or other home services: No Alcohol intake: current Alcohol intake frequency: holidays/special occasions only Patient Tobacco Use Status: Never used Tobacco e-Cigarette/Vaping Use: Never Used Second Hand Smoke Exposure: No service: No Current occupational status: unemployed and previously employed 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 Wesly Fontenot, Shannen Don, Francisco Yoder and colleagues, with an educational eamon from [employer]. Physical exam (Primary Care) Vital Signs: Last Vital Signs Pulse 88 02/23/23 08:50 BP 130/74 02/23/23 09:25 Pulse Ox 98 02/23/23 08:50 Oxygen Delivery Method Room Air 02/23/23 08:50 Care Plan Goal for BP management: Blood pressure is elevated. Lisinopril has been started today. BMI result Body Mass Index 22.4 Tobacco/Smoking Status: Tobacco use Status Tobacco use date assessed 02/23/23 02/23/23 08:59 Patient Tobacco Use Status Never used Tobacco 02/23/23 08:49 e-Cigarette/Vaping Use Never Used 02/23/23 08:49 Thrive Assessment: Date of Thrive Assessment Date Thrive assessed 08/11/22 02/23/23 08:49 Advance Care Planning discussion: Exists, not on file Date of discussion: 02/23/23 Who was present: Patient and her . Forms completed: Health Care Proxy Const General: cooperative and healthy appearing Nutritional Appearance: well nourished Orientation/consciousness: patient oriented x3 Limitations: no limitations HENMT Head: Yes normal to inspection Eyes General: appearance normal, both eyes and all related structures Neck Neck: Yes normal visual inspection Chest Chest palpation & inspection: normal palpation of entire chest wall Resp Effort & Inspection: normal respiratory effort Neuro General: patient oriented x3 Results AMB Hemoglobin A1c AMB Hemoglobin A1c 6.8 % Last Edit by PARTH Eldridge on 02/23/23 09:12 Results Reviewed Results Reviewed: Laboratory Last Values Hgb A1c (Clinic) 6.8 % (4.0-6.0) H 02/23/23 09:11 Assessment and Plan Assessment & Plan (1) Screening for breast cancer: Code(s): Z12.39 - Encounter for other screening for malignant neoplasm of breast Plan: Screening mammogram has been ordered. (2) Type 2 diabetes mellitus with hyperglycemia: Code(s): E11.65 - Type 2 diabetes mellitus with hyperglycemia Qualifiers: Diabetes mellitus skilled nursing insulin use: without skilled nursing use Qualified Code(s): E11.65 - Type 2 diabetes mellitus with hyperglycemia Plan: A1c is 6.8. I encouraged the patient to start metformin again. Prescription has been called in. (3) Essential hypertension: Code(s): I10 - Essential (primary) hypertension Plan: Blood pressure is elevated. Lisinopril has been started today. Will check in 1 month for blood pressure it reduction. (4) Annual physical exam: Code(s): Z00.00 - Encounter for general adult medical examination without abnormal findings Plan: Screening mammogram has been ordered. Patient has declined flu vaccination. Orders: Orders AMB Hemoglobin A1c Today E11.65 - Type 2 diabetes mellitus with hyperglycemia MM screening mammo BI Today Z12.31 - Encounter for screening mammogram for malignant neoplasm of breast Medications: New lisinopril 10 mg PO DAILY 90 tabs 1RF metformin 500 mg PO DAILY 90 tabs 1RF Coding Level of Care Code Est Pt Level 3 (83201) Est Pt Prev Care >65y(96834) Diagnoses Screening for breast cancer Z12.39 Type 2 diabetes mellitus with hyperglycemia, without long-term current use of insulin E11.65 Diabetes mellitus skilled nursing insulin use: without buttermaker helper use Essential hypertension I10 Annual physical exam Z00.00 Additional Codes Vital Signs *Quality* - Advance Care Planning discussion: Exists, not on file ([id number])
[2023-02-23 08:50] VITALS: BP 110/72; PULSE 88; O2SAT 98; BMI 22.4
[2023-02-23 09:24] VITALS: BP 138/80
[2023-02-23 09:25] VITALS: BP 130/74
== END 2023-02-23 09:31 | disposition home or self-care (01) ==
PROVIDERS: PCP Internal Medicine; Visit Provider Internal Medicine
DX: Z00.00 Encounter for general adult medical examination without abnormal findings (principal); Z12.39 Encounter for other screening for malignant neoplasm of breast; E11.65 Type 2 diabetes mellitus with hyperglycemia; I10 Essential (primary) hypertension
CPT/HCPCS: 1123F; 83036; 99397

== ENCOUNTER 2023-03-23 12:40 | Outpatient (REF) | payer MEDICARE, SELFPAY ==
--- NOTE | ~2023-03-23 | MM_ITS ---
EXAMINATION: MM SCREENING DIGITAL BREAST TOMOSYNTHESIS, BILATERAL CLINICAL INFORMATION: Screening. Asymptomatic. COMPARISON: Mammography: This study is compared with prior exams dating back to 2020. TECHNIQUE: Digital breast tomosynthesis is performed in both the craniocaudal and mediolateral oblique views along with computer-aided detection (CAD). Synthesized 2D images are generated from the tomosynthesis. FINDINGS: The breasts are heterogeneously dense, which may obscure small masses (ACR BI-RADS breast composition Category c). There is a central venous access port over the left breast. There are no significant masses, abnormal calcifications, or other abnormalities. MM/MM tomosynthesis screening BI IMPRESSION: No mammographic evidence of malignancy. ASSESSMENT: BI-RADS BI-RADS 1 - Negative RECOMMENDATION: Routine annual mammography screening. 1 year F/U This examination should not preclude the clinical evaluation of a suspicious palpable abnormality. This patient's information was entered into a reminder system with a target due date for their next mammogram.
== END 2023-03-23 12:41 | disposition home or self-care (01) ==
LOC: HO.MAMMO 12:40
PROVIDERS: PCP Internal Medicine; Visit Provider Internal Medicine
DX: Z12.31 Encounter for screening mammogram for malignant neoplasm of breast (principal)
CPT/HCPCS: 77063; 77067

== ENCOUNTER → 2023-03-23 13:00 | Outpatient (BNV) | payer MEDICARE, SELFPAY | PROVIDERS: PCP Internal Medicine; Visit Provider Radiology Diagnostic Radiology | DX: Z12.31 Encounter for screening mammogram for malignant neoplasm of breast (principal) | CPT/HCPCS: 77063; 77067 ==

== ENCOUNTER 2023-04-06 10:41 | Outpatient (AMB) | payer MEDICARE, SELFPAY ==
--- NOTE | 2023-04-06 11:06 | A.OFFPC_ITS ---
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 She is not been checking her blood pressures at all at home. She is curious to know her mammogram result. [facility] Medical History (Updated 04/07/23 @ 09:42 by Gabriel Woodard MD) Gastric cancer Essential hypertension Type 2 diabetes mellitus with hyperglycemia Lab test negative for COVID-19 virus Hx of diverticulitis of colon History of cellulitis Surgical History Hx of endoscopy History of gastrectomy Hx of colonoscopy History of esophagogastroduodenoscopy (EGD) Hx of appendectomy S/P right knee arthroscopy (~2002) Hx of tonsillectomy H/O tubal ligation S/P cholecystectomy (~1988) Family History Father Pancreatic cancer Mother NHL (non-Hodgkin's lymphoma) Maternal Grandfather Prostate cancer Maternal Grandmother Diabetes Heart disease Paternal Grandfather Diabetes Son Asthma Social History Household Members: Spouse Housing: House Are you a primary acute care nurse practitioner to a significant other at home: No Do you presently have visiting nurse or other home services: No Alcohol intake: current Alcohol intake frequency: holidays/special occasions only Comment: decreasing fever Patient Tobacco Use Status: Never used Tobacco e-Cigarette/Vaping Use: Never Used Second Hand Smoke Exposure: No service: No Current occupational status: unemployed and previously employed 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 Wesly Fontenot, Shannen Don, Francisco Yoder and colleagues, with an educational eamon from [employer]. Physical exam (Primary Care) Vital Signs: Last Vital Signs Pulse 70 04/06/23 11:07 BP 170/72 H 04/06/23 11:07 Pulse Ox 99 04/06/23 11:07 Oxygen Delivery Method Room Air 04/06/23 11:07 Care Plan Goal for BP management: Blood pressure is elevated. Second agent is added. BMI result Body Mass Index 21.1 Tobacco/Smoking Status: Tobacco use Status Tobacco use date assessed 02/23/23 04/06/23 11:06 Patient Tobacco Use Status Never used Tobacco 04/06/23 11:06 e-Cigarette/Vaping Use Never Used 04/06/23 11:06 Thrive Assessment: Date of Thrive Assessment Date Thrive assessed 08/11/22 04/06/23 11:06 Assessment and Plan Assessment & Plan (1) Gastric cancer: Comment: Gastrectomy, omentectomy, esophagojejunostomy, Melyssa-en-Y for gastric cancer Code(s): C16.9 - Malignant neoplasm of stomach, unspecified Qualifiers: Malignant neoplasm of stomach location: unspecified location Qualified Code(s): C16.9 - Malignant neoplasm of stomach, unspecified Plan: This condition is stable can she is being followed by her oncologist. (2) Essential hypertension: Code(s): I10 - Essential (primary) hypertension Plan: Blood pressure continues to be elevated. Hydrochlorothiazide added to the regimen. Patient was encouraged to check her blood pressure often at home. An appointment in 3 weeks has been given and she will bring in her blood pressure log. Coding Level of Care Code Est Pt Level 4 (51408) Diagnoses Malignant neoplasm of stomach, unspecified location C16.9 Malignant neoplasm of stomach location: unspecified location Essential hypertension I10
[2023-04-06 11:07] VITALS: BP 170/72; PULSE 70; O2SAT 99; BMI 21.1
== END 2023-04-06 11:35 | disposition home or self-care (01) ==
PROVIDERS: PCP Internal Medicine; Visit Provider Internal Medicine
DX: C16.9 Malignant neoplasm of stomach, unspecified (principal); I10 Essential (primary) hypertension
CPT/HCPCS: 99214

== ENCOUNTER 2023-04-13 09:16 | Outpatient (AMB) | payer MEDICARE, SELFPAY ==
--- NOTE | 2023-04-13 09:21 | MHC.OFFVIS ---
Intake Vital Signs 04/13/23 09:24 Height 5 ft 4 in Weight 117 lb 8 oz BMI 20.2 BP 117/58 L Blood Pressure Location Lt brachial Position Sitting Pulse 85 Intake Visit Reasons: pt req appointment Intake Note: Patient follow up for Diverticulitis. Patient cc: urine retention x 1 weeks, nauseas, abdominal pain, and some constipation. Denies any other GI issues. 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 Pt was seen by Dr Cisneros on 12/22/22: Assessment and plan: CEA 3.90. On 11/05 it was 3.70. Since the CT scan, upper endoscopy and PET scan, are negative, she wanted to take a break from chemotherapy. I referred her to Dr. Kay to look at the tongue lesion. He referred her for ENT consultation. ENT appointment is in March. Meanwhile to try zinc. I gave her Magic mouthwash to see if it is some sort of an infectious lesion. That has resolved. She is doing well however has had recurrence of her intermittent dysphagia. She even has occasional vomiting. CEA level: 3.50 today, previously, 4.1, before that it was 3. She underwent an upper endoscopy with dilatation on 02/25/22. That helped. Fortunately no residual carcinoma was seen in the stomach. She has been getting dysphagia more frequently. CEA: 3.60. PLAN: She would like to proceed with an endoscopy with dilatation - will call GI. She will continue to be monitored. She will continue to focus on nutrition to keep her strength up, in the meantime. She will return in 3 months for a follow up. ?IMAGING STUDIES:? 10/19/[address] SCAN SHOWED: Unremarkable CT chest with no pulmonary nodule or mass. Right central venous port tip is in the distal SVC. ?Moderate sized hiatal hernia. There is a large stool in the colon suggestive of severe constipation. ?No abnormal sized abdominal lymph nodes seen. ?Distended urinary bladder. ENDOSCOPIC STUDIES: 02/03/23 EGD SHOWED: ESOPHAGUS: Tortuous esophagus with increased tertiary contractions without stricture or ring. Normal appearing anastomosis and a fibrotic ring noted at the anastomotic site without narrowing - biopsied.? Empiric baloon dilation of esophago-jejunal anstomosis with a 20 mm (60F) CRE balloon x 60 seconds and no tear noted. STOMACH: surgically removed Plan: Further evaluation with a barium swallow if pt continues to have dysphagia symptoms. 06/21/21 EGD SHOWED: ESOPHAGUS: Tortuous esophagus with increased tertiary contractions without stricture or ring. Normal appearing anastomosis in the distal esophagus with a 2 cms patch of columner epithelium - biopsied.? Empiric baloon dilation of esophago-jejunal anstomosis with an 18 mm (54F) CRE balloon x 60 seconds. JEJUNUM: Afferent and efferent limbs of james loop were examined and appeared normal - jejunal biopsies were obtained to check for celiac sprue Plan: Schedule a bariums swallow with SBFT to evaluated distal small bowel anastomosis. Above findings were reviewed with the patient. BIOPSIES SHOWED: A.? Small bowel, biopsy:? Small intestinal mucosa within normal limits; negative for celiac disease. B.? Anastomosis, biopsy: - Squamocolumnar mucosa with moderate chronic active inflammation. - Detached fragment of intestinal/intestinalized mucosa with active inflammation. 04/24/20 EGD showed:ESOPHAGUS: Circular folds in the esophagus - biopsies obtained from proximal esophagus to check for EOE.? GE junction at 36 cms with 1 cms focal area of erosions and ulcers at the GE junction.. STOMACH: A 2 cms focal area of edematous folds with submucosal hemorrhages in gastric body along lesser curvature - biopsies were obtained.? Mild gastric erythema with antral erosions.. Biopsies were obtained. Colonoscopy Findings:? One small polyp removed Moderate diverticulosis seen in the left colon Plan:? Repeat Colonoscopy interval based on path results - in 5 years if polyp is adenomatous and 10 years if polyp is hyperplastic. Above findings were reviewed with the patient and GERD, colon polyps and diverticulosis handouts were given in the discharge area BIOPSIES SHOWED: A.? Stomach, biopsy:? Antral-type mucosa with moderate chronic erosive inflammation and surface hyperplastic changes; no Helicobacter organisms seen. B.? Stomach, body, biopsy:? Poorly differentiated carcinoma.? See description and comment. C.? Esophagus, proximal, biopsy:? Squamous epithelium within normal limits; no inflammation seen. D.? Colon, random right, biopsy:? Colonic mucosa within normal limits. E.? Colon, random left, biopsy:? Colonic mucosa within normal limits. F.? Rectum, polypectomy:? Hyperplastic mucosal polyp. Pt called with EGD and Colon bx results.? Gastric bx show poorly diffrentiated carcinoma - ? metastatic breast Ca. Pt denies a hx of breast cancer or feeling a breast mass. Advised to schedule a Mammogram and see Oncology TODAY'S VISIT: Pt is accompanied by her SO Patient cc: urine retention x 1 weeks, nauseas, abdominal pain, and some constipation. Denies any other GI issues. Reports she was started on HCTz on 04/06/23. Has been passing very little urine since then. Feels her bladder is full Denies dysuria. Intermittent upper abdominal - had two episodes. - some times radiates to the back PO intake has been less and has been loosing wt. Also noted dark urine and stool. Denies fever or chills and notes dizziness No BM x 2 days Dysphagia improved since EGD and dilation GB removed at age 21 yrs for gallstones PAST VISITS: Recurrent dysphagia for the past 2-3 months - mostly solids and if she drinks liquids too fast. Notes pain at the breast bone when food is stuck. Can have regurgitation with dysphagia If she is able to burp she notes relief of pain Denies constipation or diarrhea. Suring better after last EGD and noted recurrent symptoms after 2 weeks. Notes dysphagia to solids Sometimes she has to burp or regurgitate the food back up. Sucralfate is helping - taking three times a day. Has been taking Ensure 1 can a day. Loosing weight Not feeling to good Chemo is on hold Scheduled for a EUS on 11/25/[address] Blanco. Abdominal pain has improved. Appetite fluctuates. Takes Omeprazole prn 2 times a week when she notes heartburn. Has 3 soft BMs daily usually in the am and none the rest of the day. Noted some sharp intermittent abdominal pain yesterday when she woke up - none today Weighed 140 lbs before the chemo Wt fluctuates between 132 to 135 lbs. Family history: Dad had pancreatic cancer at the age of 67. Mom had non-Hodgkin's lymphoma. 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 She has 3 children.? She smoked as a teenager.? She rarely drinks. PAST GI HISTORY BY REVIEW OF MEDICAL RECORDS: 03/02/20 patient was seen in consultation during hospitalization at [facility] colon 64 YF with DM seen at [facility] ED on 03/01/20 with 3 day hx of left flank pain and dysurea.Abd pain was accompanied by decreased appetite, nausea and an episode of vomiting on 02/28/[address] scan showed: 1. Short segment mural thickening and pericolonic infiltrative changesin the proximal descending colon most consistent with acute diverticulitis or short segment colitis as a definitive diverticulum is not seen. 2. Mild left pelvocaliectasis without obstructing abnormality could besecondary to left ureteropelvic junction stenosis. Left renal cysts demonstrate benign features. Nonobstructing right upper pole intrarenal calculus. 3. Mild free fluid in the pelvis is presumed secondary to the colonic findings. 4. Very small hiatal hernia. Pt was started on IV antibiotics and admitted for further management. She notes improvement in abd pain from 02/14 on admission to 08/15 today. She complains of heartburn and odynophagia since yesterday. Patient admits to taking ibuprofen p.r.n. for a back pain. Patient denies major cardiac or pulmonary problems. She notes some snoring but denies obstructive sleep apnea. She denies problems with anesthesia in the past. ?? 64 YF from [facility]) with DM admitted with fever, LLQ/left flank pain, nausea and vomiting.? Lab evaluation showed UTI and preliminary blood culture results showed Gram-negative rods -? likely bacteremia from UTI. Abdominal CT scan showed changes in the descending colon suggestive of diverticulitis.? ? Patient notes improvement in her abdominal pain. Pt denies past evaluation with a colonoscopy. She complains of heartburn and odynophagia. RECOMMENDATIONS: 1.? ? Continue IV antibiotics until abdominal pain improves. 2.? ? Start PO Omeprazole for heartburn and odynophagia - order placed. 3. ? Pt will be scheduled for an EGD and Colonoscopy as an outpatient in 5-6 weeks (after diverticulitis resolves) [facility] Medical History (Updated 04/13/23 @ 09:31 by Master Fields MD) Gastric cancer Essential hypertension Type 2 diabetes mellitus with hyperglycemia Lab test negative for COVID-19 virus Hx of diverticulitis of colon History of cellulitis Surgical History Hx of endoscopy History of gastrectomy Hx of colonoscopy History of esophagogastroduodenoscopy (EGD) Hx of appendectomy S/P right knee arthroscopy (~2002) Hx of tonsillectomy H/O tubal ligation S/P cholecystectomy (~1988) Family History Father Pancreatic cancer Mother NHL (non-Hodgkin's lymphoma) Maternal Grandfather Prostate cancer Maternal Grandmother Diabetes Heart disease Paternal Grandfather Diabetes Son Asthma Social History Household Members: Spouse Housing: House Are you a primary medicare coordinator to a significant other at home: No Do you presently have visiting nurse or other home services: No Alcohol intake: current Alcohol intake frequency: holidays/special occasions only Comment: decreasing fever Patient Tobacco Use Status: Never used Tobacco e-Cigarette/Vaping Use: Never Used Second Hand Smoke Exposure: No service: No Current occupational status: unemployed and previously employed 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 urinary retention) Physical Exam Vital Signs: Last Vital Signs Pulse 85 04/13/23 09:24 BP 117/58 L 04/13/23 09:24 BMI result Body Mass Index 21.8 Const General: healthy appearing and no acute distress Nutritional Appearance: average body habitus Orientation/consciousness: patient oriented x3 Limitations: no limitations HEENT Head: Yes normal to inspection Ears: hearing grossly normal bilaterally Mouth: Normal oral and palatal mucosa present Eyes Sclerae: sclerae normal Pupils: Equal, round and reactive pupils present Neck Neck: Yes normal visual inspection Chest Chest palpation & inspection: normal inspection of the chest Resp Effort & Inspection: normal respiratory effort Auscultation: clear to auscultation bilaterally Cardio Palpation: normal PMI Rate: regular rate Rhythm: regular rhythm Heart sounds: S1 normal heart sound present, S2 normal heart sound present and no murmurs GI Palpation (GI): Soft to palpation, nontender and No hepatosplenomegaly present Auscultation: normal bowel sounds Rectal Exam - Female: deferred Skin General skin exam: no rashes or lesions noted Neuro General: patient oriented x3, gait normal and moves all extremities Cranial nerves: Yes Equal, round and reactive pupils present Psych Appearance: grossly normal Mental Status: mental status grossly normal Assessment & Plan Assessment & Plan (1) Gastric cancer: Comment: Gastrectomy, omentectomy, esophagojejunostomy, James-en-Y for gastric cancer Code(s): C16.9 - Malignant neoplasm of stomach, unspecified Qualifiers: Malignant neoplasm of stomach location: unspecified location Qualified Code(s): C16.9 - Malignant neoplasm of stomach, unspecified (2) Diverticulitis: Comment: Most likely diverticultis rather than UTI but hematuria concerning Code(s): K57.92 - Diverticulitis of intestine, part unspecified, without perforation or abscess without bleeding (3) Erosive esophagitis: Comment: Continue omeprazole 20 mg daily Code(s): K22.10 - Ulcer of esophagus without bleeding (4) History of gastrectomy: Comment: Gastrectomy, omentectomy, esophagojejunostomy, James-en-Y for gastric cancer Dr. Rajan December 2020 Code(s): Z90.3 - Acquired absence of stomach [part of] Plan 67 [facility]F from [facility] with DM admitted to [facility] in 02/24 with acute diverticulitis.? Lab evaluation showed UTI and preliminary blood culture results showed Gram-negative rods -? likely bacteremia from UTI. Abdominal CT scan showed changes in the descending colon suggestive of diverticulitis.? 04/24/20 EGD showed 1 cms focal area of erosions and ulcers at the GE junction and a 2 cms focal area of edematous folds with submucosal hemorrhages in gastric body along lesser curvature - biopsies showed poorly differentiated adeno- carcinoma. She then underwent surgery by Dr. Rajan. 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 ?Tumor site:? Residual tumor most prominent along the greater curvature. ?Tumor size:? A distinct tumor mass is not identified grossly.? 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 Patient is being followed by Dr. Cisneros in Oncology Clinic for management of gastric ca. 06/21/21 Pt had an EGD with dilation for dysphagia followed by improvement in her symptoms. No recurrent ca on biopsies. 02/03/23 EGD was performed and results as noted above. 04/13/23 Patient cc: urine retention x 1 weeks, nauseas, abdominal pain, and some constipation. Denies any other GI issues. Reports she was started on HCTz on 04/06/23. Has been passing very little urine since then. Feels her bladder is full Denies dysuria. Intermittent upper abdominal - had two episodes. - some times radiates to the back PO intake has been less and has been loosing wt. Also noted dark urine and stool. Denies fever or chills and notes dizziness No BM x 2 days Dysphagia improved since EGD and dilation GB removed at age 21 yrs for gallstones Pt was advised to go to the ED for evaluation of urinary retention and elevated LFTs with repeat labs and imaging with CT scan with IV contrast. Coding Level of Care Code Est Pt Level 4 (98816) Diagnoses Malignant neoplasm of stomach, unspecified location C16.9 Malignant neoplasm of stomach location: unspecified location Diverticulitis K57.92 Erosive esophagitis K22.10 History of gastrectomy Z90.3 Time Spent (min) 21
[2023-04-13 09:24] VITALS: BP 117/58; PULSE 85; BMI 20.2
== END 2023-04-13 10:16 | disposition home or self-care (01) ==
PROVIDERS: PCP Internal Medicine; Visit Provider Internal Medicine Gastroenterology
DX: C16.9 Malignant neoplasm of stomach, unspecified (principal); K57.92 Diverticulitis of intestine, part unspecified, without perforation or abscess without bleeding; K22.10 Ulcer of esophagus without bleeding; Z90.3 Acquired absence of stomach [part of]
CPT/HCPCS: 99214

== ENCOUNTER → 2023-04-13 09:16 | Outpatient (BNVA) | payer MEDICARE, SELFPAY | PROVIDERS: PCP Internal Medicine; Visit Provider Internal Medicine Gastroenterology ==

== ENCOUNTER 2023-04-13 10:09 | Emergency (ER) | payer MEDICARE, SELFPAY ==
--- NOTE | ~2023-04-13 | CT_ITS ---
EXAMINATION: CT ABDOMEN AND PELVIS WITH CONTRAST CLINICAL INFORMATION: Jaundice. Abdominal pain. COMPARISON: 02/16/2022 TECHNIQUE: Multidetector volumetric images were obtained from the superior aspect of the liver through the pubic symphysis following administration 85 mL of Omnipaque 350 intravenous contrast. Sagittal and coronal reformatted images were obtained on the technologist's workstation. Oral contrast: No This CT examination was performed using dose optimization techniques as appropriate, variously including the following: *Automated exposure control *Adjustment of mA and/or kV according to patient size (this includes techniques or standardized protocols for targeted exams where dose is matched to indication/reason for exam; i.e. extremities or head) *Use of iterative reconstruction technique DLP: 315 mGy-cm FINDINGS: LUNG BASES: The visualized lung bases are unremarkable. LIVER, GALLBLADDER, AND BILIARY TREE: The liver is decreased in attenuation. There is marked intrahepatic and extrahepatic biliary ductal dilatation. The common duct measures up to 1.7 cm at the joel hepatis. No discrete intraductal filling defects are seen. Hepatic vasculature is patent. The gallbladder is not visualized. PANCREAS: Dilatation and tortuosity of the main pancreatic duct. The main pancreatic duct measures up to 5 mm. There are several cystic lesions throughout the pancreas incompletely characterized but possibly dilated side branches. SPLEEN: Not enlarged. ADRENAL GLANDS: Obscured. KIDNEYS AND URETERS: Severe bilateral hydroureteronephrosis due to obstruction. There is differential enhancement of the kidneys. No perinephric fluid collection. BLADDER: Marked irregular wall thickening at the bladder dome. Not decompressed despite Simeon catheter placement. GASTROINTESTINAL TRACT: Postsurgical changes of the stomach. Marked wall thickening of the cecum to the splenic flexure. Wall thickening of the duodenum inclusive of the ampulla. ABDOMINAL WALL: No significant hernia is appreciated. LYMPH NODES: Soft tissue mass centered around the right renal vein and right renal artery with severe attenuation of the vessels as well as of the SVC. There is soft tissue surrounding the SMA. Abnormal soft tissue in the gastrohepatic ligament. VASCULAR: No abdominal aortic aneurysm. PELVIC VISCERA: Soft tissue thickening in the presacral space. Irregular enhancing soft tissue mass right pelvis most likely contiguous with the bladder dome measures at least 7.3 x 3.2 cm transverse dimension. There are multiple additional enhancing nodules in the vesicouterine space and at the base of the urinary bladder. Possible enhancing fibroid measuring 1 cm. Small ascites. OSSEOUS STRUCTURES: Diffuse heterogeneity of the bone marrow. CT/CT abdomen pelvis w IV con IMPRESSION: Progression of disease with extensive soft tissue masses throughout the abdomen and pelvis resulting in severe biliary tract obstruction, urinary tract obstruction and severe attenuation of the right renal artery/right renal vein, left renal vein and IVC. Marked wall thickening of the cecum to the splenic flexure. Marked wall thickening of the duodenum including the ampulla. Enhancing soft tissue masses in the right pelvis and at the base of the urinary bladder. Diffuse heterogeneity of the bone marrow. Advise correlation with nuclear medicine bone scan. Findings were reviewed and discussed with Kulwinder HOPKINS at 3:00 PM on 04/13/2023.
[2023-04-13 10:22] VITALS: BP 140/89; PULSE 83; RESP 18; TEMP 36.6; O2SAT 98; BMI 19.5
--- NOTE | 2023-04-13 11:50 | ED_ITS ---
HPI - Female Genitourinary General Chief complaint: Urogenital-Female Stated complaint: Referred by PCP for ultrasound Time Seen by Provider: 04/13/23 11:22 Source: patient Mode of arrival: ambulatory Limitations: no limitations History of Present Illness HPI Narrative: 67-year-old female with past medical history of gastric cancer ( was on chemo last session September 2021) s/p total gastrectomy w/ Melyssa en Y reconstruction, hypertension, and type II diabetes presents today per request of Dr. Fields for evaluation of jaundice, elevated LFTs, and urinary retention. She reports increased difficulty with urination characterized by sensation of bladder fullness and decreased urine output despite adequate PO hydration. She notes that she started on HCTZ last week. She reports left flank pain discomfort and right upper quadrant pain. She has not had a bowel movement in 2 days not normal for her. . She reports nausea but no vomiting. She reports palpitations but no chest pain or shortness of breath. Slight changes in skin color, yellowing of skin but shes not sure if her skin looked strange due to the light. She denies fevers and chills. She has a surgical history of gastrectomy w lymphadenectomy and omentectomy, Melyssa-en-Y reconstruction with end-to-side esophagojejunostomy, an appendectomy, and cholecystectomy. Related Data Home Medications Medication Instructions Recorded Confirmed multivitamin 1 tab PO DAILY 05/11/20 04/13/23 cholecalciferol (vitamin D3) 25 25 mcg PO DAILY 04/13/23 04/13/23 mcg (1,000 unit) tablet cyanocobalamin (vitamin B-12) 5,000 mcg sublingual DAILY 04/13/23 04/13/23 5,000 mcg sublingual tablet hydrochlorothiazide 25 mg tablet 25 mg PO DAILY@2100 04/13/23 04/13/23 lisinopril 10 mg tablet 10 mg PO DAILY@2300 04/13/23 04/13/23 metformin 500 mg tablet 500 mg PO DAILY@1500 04/13/23 04/13/23 Previous Rx's Medication Instructions Recorded pen needle, diabetic 31 gauge x #100 ea 06/15/20/16 (BD Ultra-Fine Mini Pen Needle) flash glucose scanning reader #1 ea 09/11/22 (FreeStyle Michele 14 Day [place]) oxycodone 5 mg tablet 5 mg PO Q6H PRN Breakthrough Pain, 11/20/23 Mild #60 tabs Allergies Allergy/AdvReac Type Severity Reaction Status Date / Time meperidine [From Demerol] Allergy Severe Swelling Verified 04/13/23 09:20 Review of Systems 2 Review of Systems: Constitutional : No Weight loss, No Fever, No Chills Eyes: No Swelling, No Redness Cardiovascular : No Chest Pain, No SOB, No Edema +Palpitations Respiratory : No Cough, No Sputum, No Wheezing Gastrointestinal : Positive Nausea, No Vomiting, No Diarrhea, positive abdominal Pain, Positive constipation, No Hematochezia, No Melena Genitourinary : No Dysuria, No Urinary Frequency, No Hematuria, No Urgency +Urinary retention +Suprapubic tenderness +Flank pain Musculoskeletal : No joint pain, No Myalgias, No Joint Swelling Skin : No Skin Lesions, No rash Neuro : No Weakness, No Numbness, No Dizziness, No Headache Psych : No Anxiety/Panic, No Depression All other systems reviewed and are negative. Yes all other systems are reviewed and are negative [facility] Past Medical History Attestation statement: The following information was validated with the patient. Source: old records reviewed and nursing notes reviewed Medical History (Updated 04/13/23 @ 19:23 by KELLIE Xie) Gastric cancer Essential hypertension Type 2 diabetes mellitus with hyperglycemia Lab test negative for COVID-19 virus Hx of diverticulitis of colon History of cellulitis Surgical History Hx of endoscopy History of gastrectomy Hx of colonoscopy History of esophagogastroduodenoscopy (EGD) Hx of appendectomy S/P right knee arthroscopy (~2002) Hx of tonsillectomy H/O tubal ligation S/P cholecystectomy (~1988) Family History Family History Father Pancreatic cancer Mother NHL (non-Hodgkin's lymphoma) Maternal Grandfather Prostate cancer Maternal Grandmother Diabetes Heart disease Paternal Grandfather Diabetes Son Asthma Social History Social History Household Members: Spouse Housing: House Are you a primary career information specialist to a significant other at home: No Do you presently have visiting nurse or other home services: No Alcohol intake: never Comment: decreasing fever Patient Tobacco Use Status: Never used Tobacco Smoked in Last 30 Days: No e-Cigarette/Vaping Use: Never Used Second Hand Smoke Exposure: No Use of substances other than those prescribed or required for medical reasons: No Advance Directives: Yes Advance Directives on File: Yes Advance Directives Date on File: 08/11/20 service: No Current occupational status: unemployed and previously employed 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 Oriented X3.? No acute distress.?Jaundiced and cachectic. Head: Normocephalic, atraumatic, no step-offs or deformities Eyes: Pupils equal, round and reactive to light.? Neck: Normal inspection.? Neck supple.? CVS: Normal heart rate and rhythm.? Pulses normal.? Respiratory: No respiratory distress.? Breath sounds normal.? Abdomen: Soft and nondistended. Normoactive bowel sounds in all 4 quadrants. Right upper quadrant pain with palpation. No masses noted on exam. Suprapubic tenderness with palpation. Skin: Skin warm and dry.? Jaundiced.? Normal skin turgor.? Extremities: No lower extremity edema.? No calf ttp. 5/5 strength to bilateral upper and lower extremities Back: No midline tenderness, no C-spine tenderness, full range of motion, no CVA tenderness bilaterally Neuro: Oriented X 3.? No motor deficit.? No sensory deficit. CN 2-12 intact Course Reevaluation(s) Reevaluation #1: CBC appears to be around patient's baseline with a normocytic anemia. Chemistry with low sodium IV fluids will be ordered, BUN 26, creatinine 0.94 likely secondary to poor p.o. intake/dehydration. Patient is noted to have elevated transaminases and alk-phos around her baseline bilirubin however has increased 5.6 concerns for biliary tract involvement, and likely reason why patient is home jaundice. Slightly elevated lipase. UA without infection. Time: 12:40 Reevaluation #2: Delay and imaging due to back up with radiology however now resulted CT abdomen pelvis with progression of disease with extensive soft tissue masses throughout the abdomen and pelvis resulting in severe biliary tract obstruction, urinary tract obstruction and severe 10 UA porras of the right renal artery and vein, left renal vein and IVC marked wall thickening of the cecum to the splenic flexure and marked wall thickening of the duodenum including the ambulate. Enhancing soft tissue masses in the right pelvis and base of the urinary bladder. Diffuse heterogenicity in the bone marrow. I did inform patient of these results. Time: 15:00 Reevaluation #3: Discussed this case w/ Dr. Cisneros will follow in the hospital would like patient admitted to the hospital. Discussed this case w/ Dr. Schwartz recommends ornelas cath which is already in place. Retroperitoneal obstruction likely. No need for stent at this time. Would like her admitted. Urology to follow in the hospital Time: 16:15 Additional Reevaluation(s): Spoke to Dr. Fields who recommends admission maybe a candidate for a billiary stent depending on overall plan and picture of care. And patient may been PTCA by IR 1800 Initially hospitalist okay with admitting this however IR is not available until early next week, to do potential PTCA on this patient. Hospitalist informed me that Hematology would prefer this procedure be done sooner, this would require transfer to a tertiary center that can perform this procedure and has a higher level of care. Will inform family of this. 1804 [facility] is closed to transfers due to capacity 1807 [facility] closed due to capacity 1809 Call out to [facility] in [place] for potential transfer will call back if beds are available. ( long discussion w/ family about transferring across state lines and how I am not certain if insurance would cover this verbalize understanding of this both and ) 1922 Patient has been aware potential transfer to [place]. [address] [facility] [place] likely accepting transfer 1999 Patient states last chemo September 2021. [address].James [facility] [place] who will call back and accept admission if PTCA is available at his facility Sign out to Shw[facility] patient should be put up for dischrge when ambulance arrives. 21:[address] Scott at [facility] in [place], [place], will go to oncology floor, [place] [id number]. RN provided with number for nurse to nurse report. Transport arranged. Medications Administered Discontinued Medications Generic Name Dose Route Start Last Admin Trade Name Christa PRN Reason Stop Dose Admin Sodium Chloride 1,000 mls @ 999 mls/hr 04/13/23 16:45 04/13/23 19:47 Ns IV 04/13/23 17:45 Infused .Q1H1M KHRIS Infusion Iohexol 100 ml 04/13/23 13:38 04/13/23 13:38 Iohexol 350 Mg/Ml 100 Ml Infus..Btl IV 04/13/23 13:39 85 ml ONCE ONE Administration Medical Decision Making Medical Decision Making [facility] Narrative: 67-year-old female presents today from the office of Dr. Donnie WHITFIELD for evaluation of jaundice, elevated LFTs, and urinary retention x 1 week. She reports right upper quadrant pain, suprapubic tenderness, and left flank pain as well.. Physical exam revealed jaundiced skin and right upper quadrant pain with palpation Likely acute hepatitis, metastases, pancreatitis, UTI, nephrolithiasis, choledocolithiasis, bladder obstruction, biliary obstruction. Unlikely acute abdomen, large bowel obstruction, small bowel obstruction, pyelonephritis, AR, PE, pleural effusion, aortic dissection, arrhythmia , cauda equina and cord compression Plan labs, CT, UA, EKG Specialty consult Differential Diagnosis Differential Diagnoses: The differential diagnosis associated with the presentation includes Likely acute hepatitis, metastases, pancreatitis, UTI, nephrolithiasis, choledocolithiasis bladder obstruction, biliary obstruction. Unlikely acute abdomen, large bowel obstruction, small bowel obstruction, pyelonephritis cauda equina and cord compression Admission/Observation Consideration of admission/observation: Escalation of care including admission/observation considered Likely Consult Healthcare Provider Management of the patient was discussed with: Recovery Operator Helper (GI, Hematology, Urology ) Lab Data [facility] Lab Attestation statement: I reviewed the patient's lab results. 04/13/23 11:57 04/13/23 11:57 Labs: Lab Results 04/13/23 04/13/23 Range/Units 11:57 12:44 WBC 3.3 L (4.8-10.8) X10*3/uL RBC 3.63 L (4.20-5.50) X10*6/uL Hgb 11.1 L (12.0-16.0) g/dl Hct 34.1 L (37.0-47.0) % MCV 93.9 (80.0-98.0) fL MCH 30.6 (27.0-33.0) pg MCHC 32.6 (31.0-35.0) g/dl RDW 13.6 (11.0-16.0) % Plt Count 169 (160-400) X10*3/uL MPV 11.5 (9.4-12.3) fL Immature Gran % (Auto) 0.3 (0.0-0.4) % Neut % (Auto) 74.2 H (45-73) % Lymph % (Auto) 16.3 L (20-40) % [place] % (Auto) 8.9 (2-11) % Eos % (Auto) 0.0 (0-4) % Baso % (Auto) 0.3 (0-2) % Lymph # (Auto) 0.5 L (1.2-4.9) X10*3/uL [place] # (Auto) 0.3 (0.1-1.2) X10*3/uL Eos # (Auto) 0.0 (0.0-0.4) X10*3/uL Baso # (Auto) 0.0 (0.0-0.2) X10*3/uL Abs Immat Gran (auto) 0.01 (0.00-0.03) X10*3/uL Absolute Neuts (auto) 2.4 (2.0-8.3) x10*3/uL Absolute Nucleated RBC 0.000 (0.0-0.012) X10*3/uL Nucleated RBC % (auto) 0.0 (0.0-0.2) /100WBC PT 11.4 (11.1-13.3) SEC INR 0.9 (0.9-1.1) Sodium 133 L (135-145) mmol/L Potassium 3.9 (3.3-5.1) mmol/L Chloride 94 L (96-108) mmol/L Carbon Dioxide 28 (22-29) mmol/L Anion Gap 15 (12-20) BUN 26 H (9-16) mg/dL Creatinine 0.94 (0.5-1.4) mg/dL Estim Creat Clear Calc 48.6 Estimated GFR 59 Random Glucose 281 H (60-115) mg/dL Calcium 10.1 (8.4-10.2) mg/dL Total Bilirubin 5.6 H (0.0-1.0) mg/dL AST 139 H (5-31) U/L ALT 126 H (0-31) U/L Alkaline Phosphatase 697 H (39-117) U/L Total Protein 7.0 (6.5-8.0) g/dL Albumin 3.8 (3.5-5.0) g/dL Lipase 80 H (8-78) U/L Carcinoembryonic Ag 7.00 ng/mL Urine Color Dark Yellow Urine Appearance Clear Urine pH 5.0 (5.0-9.0) Ur Specific [place] 1.015 (1.005-1.025) Urine Protein Trace (Neg-Trace) mg/dL Urine Glucose (UA) 100 H (Negative) mg/dL Urine Ketones Trace (Negative) mg/dL Urine Blood Negative (Negative) Urine Nitrite Negative (Negative) Ur Leukocyte Esterase Trace H (Negative) Urine RBC 0-2 (0-2) /HPF Urine WBC 0-5 (0-5) /HPF Ur Squamous Epith Cells 3-5 (0-2) /HPF Urine Bacteria None Seen (None Seen) Hyaline Casts 3-5 (0-2) /LPF Independent Interpretation I performed an independent interpretation of an: CT Scan Radiology Impression Discussion of test interpretation with radiology: I have reviewed the radiologist's reading. Independent Historian Clinical information obtained from an independent historian. History obtained from or confirmed by: Spouse External Record Review External record reviewed: Inpatient record, Office record, Outpatient record, Prior outpatient labs, Prior outpatient radiology, Primary care record and Outside ED record Chronic Conditions Patient?s care impacted by: Hypertension and Other (gastric cancer ) Critical Care Time Critical Care Time Critical Care Time: Yes Total Critical Care Time: 90 Attestation: I attest to this time spent taking care of the patient, obtaining history, physical, reviewing labs, imaging, speaking to my attending, speaking to specialist. Discharge Plan Discharge Clinical Impression: Metastasis from gastric cancer, Obstruction of urinary tract, Biliary tract obstruction, Jaundice, Hyperbilirubinemia Patient Disposition: Xfer LTC Transfer Details: [facility] Prescriptions: No Action (DME) FreeStyle Michele 14 Day [place] Misc See Rx Instructions .ROUTE .MEDSUPPLY Qty: 1 0RF Rx Instructions: As directed multivitamin Tablet 1 tab PO DAILY oxycodone 5 mg Tablet 5 mg PO Q6H PRN (Reason: Breakthrough Pain, Mild) Qty: 60 0RF Rx Instructions: Partial Fill upon patient request. cholecalciferol (vitamin D3) 25 mcg (1,000 unit) Tablet 25 mcg PO DAILY cyanocobalamin (vitamin B-12) 5,000 mcg Tablet, Sublingual 5,000 mcg SUBLINGUAL DAILY metformin 500 mg tablet 500 mg PO DAILY@1500 lisinopril 10 mg tablet 10 mg PO DAILY@2300 hydrochlorothiazide 25 mg tablet 25 mg PO DAILY@2100 (DME) pen needle, diabetic [BD Ultra-Fine Mini Pen Needle] 31 gauge x 3/16 needle See Rx Instructions .ROUTE .MEDSUPPLY Qty: 100 3RF Rx Instructions: As directed Inject 10 U lantus QD
[2023-04-13 12:01] LABS: MANUAL DIFF FLAG NO
[2023-04-13 12:04] LABS: Basophils Percent Auto 0.3 % (0-2); Hematocrit 34.1 % (37.0-47.0); Hemoglobin 11.1 g/dl (12.0-16.0); Imm Gran Abs Auto 0.01 X10*3/uL (0.00-0.03); Imm Gran Pct Auto 0.3 % (0.0-0.4); Lymphocytes Absolute Auto 0.5 X10*3/uL (1.2-4.9); Lymphocytes Percent Auto 16.3 % (20-40); Mean Corpuscular HGB Conc 32.6 g/dl (31.0-35.0); Mean Corpuscular Hemoglobin 30.6 pg (27.0-33.0); Mean Corpuscular Volume 93.9 fL (80.0-98.0); Mean Platelet Volume 11.5 fL (9.4-12.3); Monocytes Absolute Auto 0.3 X10*3/uL (0.1-1.2); Monocytes Percent Auto 8.9 % (2-11); Neutrophils Absolute Auto 2.4 x10*3/uL (2.0-8.3); Neutrophils Percent Auto 74.2 % (45-73); Platelet Count 169 X10*3/uL (160-400); Red Blood Count 3.63 X10*6/uL (4.20-5.50); Red Cell Distribution Width 13.6 % (11.0-16.0); White Blood Count 3.3 X10*3/uL (4.8-10.8)
[2023-04-13 12:13] LABS: INTERNATIONAL NORM RATIO 0.9 (0.9-1.1); Prothrombin Time 11.4 SEC (11.1-13.3)
[2023-04-13 12:15] LABS: Lipase 80 U/L (8-78)
[2023-04-13 12:19] LABS: Alanine Aminotransferase 126 U/L (0-31); Albumin Level 3.8 g/dL (3.5-5.0); Alkaline Phosphatase 697 U/L (39-117); Anion Gap 15 (12-20); Aspartate Amino Transferase 139 U/L (5-31); Bilirubin Total 5.6 mg/dL (0.0-1.0); Blood Urea Nitrogen 26 mg/dL (9-16); Calcium 10.1 mg/dL (8.4-10.2); Carbon Dioxide 28 mmol/L (22-29); Chloride 94 mmol/L (96-108); Creatinine Clr Calc Pharmacy 48.6; Estimated Glomerular Filt Rate 59; Glucose Random 281 mg/dL (60-115); Potassium 3.9 mmol/L (3.3-5.1); Sodium 133 mmol/L (135-145)
--- NOTE | 2023-04-13 12:19 | ECG_ITS ---
Test Reason : palpitations Blood Pressure : / mmHG Vent. Rate : 063 BPM Atrial Rate : 063 BPM P-R Int : 144 ms QRS Dur : 072 ms QT Int : 412 ms P-R-T Axes : 041 030 052 degrees QTc Int : 421 ms Normal sinus rhythm Normal ECG When compared with ECG of 02-JAN-2012 01:38, No significant change was found Referred By: Kulwinder Gonzalez Electronically Signed By:JOSELIN CALLE
[2023-04-13 12:49] LABS: Appearance Urine Clear; Color Urine Dark Yellow; Glucose Urine UA 100 mg/dL (Negative); Leukocyte Esterase Urine Trace (Negative); Nitrite Urine Negative (Negative); Specific Gravity - Urine 1.015 (1.005-1.025); UMIC TRIGGER UACC YES; Urine Blood Negative (Negative); Urine Ketones Trace mg/dL (Negative); Urine Protein Trace mg/dL (Neg-Trace)
[2023-04-13 12:51] LABS: Bacteria Urine None Seen (None Seen); RBC Urine 0-2 /HPF (0-2); WBC Urine 0-5 /HPF (0-5)
[2023-04-13] MEDS: iohexoL 350 MG/ML 100 ML INFUS..BTL IV (13:38)
[2023-04-13 16:00] VITALS: BP 147/66; PULSE 74; RESP 20; O2SAT 97
--- NOTE | 2023-04-13 16:49 | PHA.MEDREC ---
Pharmacy Consult ? Medication Reconciliation Pharmacy has completed the medication reconciliation. Patient reported medications. Sherry Govea, DarbyD
[2023-04-13] MEDS: 0.9 % Sodium Chloride 1,000 ML 999 ML IV (17:38)
--- NOTE | 2023-04-13 19:17 | MHC.EDTECH ---
CALLED [facility] TRANSFER LINE AT 704PM, SPOKE TO PARRISH WHO SAID THEY ARE CLOSED FOR TRANSFERS DUE TO THEM BEING AT FULL CAPACITY. CALLED [facility] TRANSFER LINE AT 706PM AND SPOKE TO ANNETTE WHO SAID THEY ARE ONLY OPEN FOR PEDI, STROKE AND OBGYN TRANSFERS. CALLED [facility] TRANSFER LINE AT 709PM. GAVE THE CALL TO NUBIA WHO SPOKE WITH PT PLACEMENT FOR TRANSFER.
[2023-04-13 20:33] VITALS: BP 160/66; PULSE 64; TEMP 37.1; O2SAT 96
--- NOTE | 2023-04-13 21:34 | PC.NURSE ---
report given to rn at [facility]
== END 2023-04-13 22:19 | disposition short-term general hospital (02) ==
PROVIDERS: Internal Medicine Medical Oncology; Physician Assistant; Emergency Provider Emergency Medicine Emergency Medical Services; PCP Internal Medicine
DX: C16.9 Malignant neoplasm of stomach, unspecified (principal); C79.89 Secondary malignant neoplasm of other specified sites; K83.1 Obstruction of bile duct; N13.8 Other obstructive and reflux uropathy; R17 Unspecified jaundice; E80.6 Other disorders of bilirubin metabolism; R33.9 Retention of urine, unspecified; E11.9 Type 2 diabetes mellitus without complications; I10 Essential (primary) hypertension; E78.00 Pure hypercholesterolemia, unspecified; Z92.21 Personal history of antineoplastic chemotherapy; Z79.84 Long term (current) use of oral hypoglycemic drugs; Z79.899 Other long term (current) drug therapy; Z90.3 Acquired absence of stomach [part of]
CPT/HCPCS: 36415; 51702; 51798; 74177; 80053; 81001; 82378; 83690; 85025; 85610; 93005; 96360; 96361; 99212; 99285; Q9967

== ENCOUNTER → 2023-04-13 12:19 | Outpatient (BNV) | payer MEDICARE, SELFPAY | PROVIDERS: Emergency Provider Emergency Medicine Emergency Medical Services; PCP Internal Medicine; Visit Provider Internal Medicine | DX: R00.2 Palpitations (principal) | CPT/HCPCS: 93010 ==

== ENCOUNTER 2023-04-24 10:09 | Inpatient (IN) | payer MEDICARE, SELFPAY ==
--- NOTE | ~2023-04-24 | IR_ITS ---
Cholangiogram Common bile duct stent placement INDICATIONS: Obstructive jaundice secondary to metastatic gastric cancer status post biliary drainage with internal/external biliary drainage catheter in place. After informed and written consent was obtained an official timeout was performed immediately prior to the procedure. Medications for conscious sedation: The patient received intravenous conscious sedation under my direct supervision. A registered nurse monitored the patient and the patient's vital signs throughout the procedure. The total sedation was 45 minutes utilizing fentanyl and Versed with good effect. PROCEDURE: The biliary drainage catheter appears to be in good position. Proximal ends of 2 indwelling double-J ureteral stents are seen. Upon injection of contrast there is moderate dilatation of the intrahepatic as well as common hepatic duct. The patient is status post cholecystectomy. The biliary drainage catheter extends across an area of stricture in the mid to inferior aspect of the common bile duct with the pigtail portion of the catheter within the duodenum. The stricture measures approximately 4 cm in length. 1% lidocaine was administered. The catheter hub was cut and a 0.035 Amplatz wire was inserted. The tube was removed over the wire and a 10 [place] sheath was placed. The initial measurements were confirmed by placing a marking pigtail catheter across the common bile duct and injecting contrast through the sheath. A 10 mm x 6 cm [place] Viabil stent was then deployed in the mid to distal common bile duct extending approximately 1 cm into the duodenum. The stent was postdilated with an 8 mm x 6 cm balloon. Cholangiogram demonstrates widely patent stent with spontaneous drainage of the contrast from the intrahepatic biliary ducts into the duodenum. The sheath was removed and hemostasis was readily achieved with minimal compression. A sterile dressing was applied. IR/IR stent venous IMPRESSION: Redemonstration of 4 cm malignant stricture in the distal common bile duct. Placement of a covered stent in the mid to distal common bile duct across the region of stricture. The stent was demonstrated to be widely patent with spontaneous drainage of bile. We therefore elected to pull the sheath and not leave any external drainage catheter in place.
--- NOTE | ~2023-04-24 | IR_ITS ---
Biliary Tube check INDICATIONS: Jaundice status post biliary drainage After informed and written consent was obtained an official timeout was performed immediately prior to the procedure. PROCEDURE: The biliary drainage catheter appears to be in good position. Upon injection of contrast there is moderate dilatation of the intrahepatic as well as common hepatic duct. The patient is status post cholecystectomy. The biliary drainage catheter extends across an area of stricture in the mid to inferior aspect of the common bile duct with the pigtail portion of the catheter within the duodenum. The stricture measures approximately 4 cm in length. The patient has bilateral nephrostomy tube placement which appear to be in good position. IR/IR cva device check w fluoro IMPRESSION: The biliary drainage catheter is in good position across an area of stricture in the mid to inferior aspect of the common bile duct which again measures approximately 4 cm in length. Moderate dilatation of the intrahepatic as well as common hepatic duct as noted. Bilateral nephrostomy tubes noted. The Patient is status post cholecystectomy.
--- NOTE | ~2023-04-24 | FL_ITS ---
EXAMINATION: XR FLUOROSCOPY WITH IMAGES CLINICAL INFORMATION: Cystoscopy with bilateral retrograde stents. COMPARISON: CT abdomen of 04/13/2023. TECHNIQUE: Fluoroscopy Supervised By: Dr. Shukri Manzo. Fluoroscopy Time: 29.4 seconds. Cumulative Dose: 4.03 mGy. Images: 10. FINDINGS: Intraoperative C-arm images at first demonstrate bilateral nephrostomy tubes in place and with one of 2 catheters on the right having the appearance of a nephroureteral stent with distal loop appearing in location expected to represent the mid right ureter. On final images, the left nephrostomy tube appears to be removed with a left ureteral stent in place. On the right, there is a new right ureteral stent seen. FL/FL guidance in OR IMPRESSION: Intraoperative fluoroscopy for urological procedure.
[2023-04-24 10:33] VITALS: BP 91/52; PULSE 105; RESP 20; TEMP 36; O2SAT 95; BMI 28.3
--- NOTE | 2023-04-24 11:39 | ED_ITS ---
HPI - General Adult General Chief complaint: Failure to Thrive Stated complaint: ca pt sent in by pcp Time Seen by Provider: 04/24/23 11:39 Source: patient and family () Mode of arrival: ambulatory Limitations: no limitations History of Present Illness HPI narrative: Patient is a 67-year-old female with history of metastatic gastric adenocarcinoma s/p total gastrectomy w/ Melyssa en Y reconstruction, HTN, T2DM presenting to the ED from Dr. Cisneros's office for concern of difficulty managing nephrostomy tubes. Patient was seen in this ED on 04/13, and transferred to [facility] in [place] for further management of significant biliary tract and urinary tract obstruction. Patient was discharged home from [facility] on , was told to change dressings around biliary and nephrostomy drains after 3 days. states that [facility] has not been to their home yet to address this. Patient complains of chronic right upper quadrant abdominal pain as well as nausea. She denies vomiting or diarrhea. She denies fevers. She denies chest pain, palpitations, shortness of breath. Patient and state that she is tolerating small amounts of p.o. fluids but has not been eating. Patient reports that the long-term plan is additional chemotherapy. She is currently on oxycodone to manage her pain, states current pain is 4/10. She last took oxycodone around 10:00 a.m.. states all drains have been functioning properly and reports that he drained all 4 bags this morning. States that he felt her biliary drain appeared [place] in color this morning but appears normal now. MD complaint: drain issue Onset (ago): day(s) Location: back and abdomen Severity scale (1-10): 4 Quality: aching Pain Consistency: constant Associated symptoms: loss of appetite and nausea/vomiting Treatments prior to arrival: none Related Data Home Medications Medication Instructions Recorded Confirmed multivitamin 1 tab PO DAILY 05/11/20 04/13/23 cholecalciferol (vitamin D3) 25 25 mcg PO DAILY 04/13/23 04/13/23 mcg (1,000 unit) tablet cyanocobalamin (vitamin B-12) 5,000 mcg sublingual DAILY 04/13/23 04/13/23 5,000 mcg sublingual tablet hydrochlorothiazide 25 mg tablet 25 mg PO DAILY@2100 04/13/23 04/13/23 lisinopril 10 mg tablet 10 mg PO DAILY@2300 04/13/23 04/13/23 metformin 500 mg tablet 500 mg PO DAILY@1500 04/13/23 04/13/23 Previous Rx's Medication Instructions Recorded pen needle, diabetic 31 gauge x #100 ea 06/15/2007/21 (BD Ultra-Fine Mini Pen Needle) flash glucose scanning reader #1 ea 09/11/22 (FreeStyle Michele 14 Day [place]) oxycodone 5 mg tablet 5 mg PO Q6H PRN Breakthrough Pain, 03/27/23 Mild #60 tabs Allergies Allergy/AdvReac Type Severity Reaction Status Date / Time meperidine [From Demerol] Allergy Severe Swelling Verified 04/13/23 09:20 Review of Systems 2 Review of Systems: As per HPI. Yes all other systems are reviewed and are negative Constitutional: Constitutional: Reports as per HPI [facility] Past Medical History Medical History (Updated 04/24/23 @ 16:16 by Mini Short NP) Gastric cancer Essential hypertension Type 2 diabetes mellitus with hyperglycemia Lab test negative for COVID-19 virus Hx of diverticulitis of colon History of cellulitis Surgical History Hx of endoscopy History of gastrectomy Hx of colonoscopy History of esophagogastroduodenoscopy (EGD) Hx of appendectomy S/P right knee arthroscopy (~2002) Hx of tonsillectomy H/O tubal ligation S/P cholecystectomy (~1988) Family History Family History Father Pancreatic cancer Mother NHL (non-Hodgkin's lymphoma) Maternal Grandfather Prostate cancer Maternal Grandmother Diabetes Heart disease Paternal Grandfather Diabetes Son Asthma Social History Social History Household Members: Spouse Housing: House Are you a primary certified caregiver to a significant other at home: No Do you presently have visiting nurse or other home services: No Alcohol intake: never Comment: decreasing fever Patient Tobacco Use Status: Never used Tobacco Smoked in Last 30 Days: No e-Cigarette/Vaping Use: Never Used Second Hand Smoke Exposure: No Use of substances other than those prescribed or required for medical reasons: No Advance Directives: Yes Advance Directives on File: Yes Advance Directives Date on File: 08/11/20 service: No Current occupational status: unemployed and previously employed 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 Blood pressure low. Heart rate slightly tachycardic. Respiratory rate normal. Temperature normal. Oxygen saturation normal. Const General: cooperative, no acute distress and tired appearing Nutritional Appearance: thin Orientation/consciousness: oriented to person, oriented to place, oriented to time and patient oriented x3 Limitations: no limitations HENMT Head: Yes normocephalic and Yes atraumatic Ears: external ears normal General nose exam: Normal external nose present Face and sinus: Yes face symmetric Mouth: oropharynx normal and moist mucous membranes abnormal (dry) Throat: Yes uvula midline Eyes Pupils: Equal, round and reactive pupils present Neck Neck: Yes normal visual inspection and Yes supple Resp Effort & Inspection: normal respiratory effort and able to speak in complete sentences Auscultation: clear to auscultation bilaterally Cardio Rate: regular rate Rhythm: regular rhythm Heart sounds: S1 normal heart sound present and S2 normal heart sound present GI Inspection: No normal to inspection (biliary drain present RUQ/lateral) Palpation (GI): Soft to palpation, Tenderness to palpation present (GI) in the RUQ, no guarding and No Rebound tenderness present Auscultation: Hypoactive bowel sounds present Other: Bilateral nephrostomy tubes as well as indwelling urinary catheter in place Skin General skin exam: elasticity normal, turgor normal and jaundice Neuro General: oriented to person, oriented to place, oriented to time, patient oriented x3, tone normal, moves all extremities, Normal light touch and pain sensation, no focal motor deficits, CN's II-XI intact bilaterally and deep tendon reflexes 2+ bilaterally Cranial nerves: Yes Equal, round and reactive pupils present Cognition (Neuro): normal cognition Extrem General: Yes full ROM, Yes no pedal edema and Yes no calf tenderness Psych Mental Status: mental status grossly normal Affect: normal affect Thought process: Normal thought process present Medications Administered Discontinued Medications Generic Name Dose Route Start Last Admin Trade Name Christa PRN Reason Stop Dose Admin Sodium Chloride 1,000 mls @ 999 mls/hr 04/24/23 12:15 04/24/23 13:54 Ns IV 04/24/23 13:15 Infused .Q1H1M KHRIS Infusion Oxycodone HCl 5 mg 04/24/23 14:22 04/24/23 14:34 Oxycodone Hcl Immed Release 5 Mg Tablet PO 04/24/23 14:23 5 mg ONCE ONE Administration Medical Decision Making Medical Decision Making MDM Narrative: Patient is a 67-year-old female with history of metastatic gastric adenocarcinoma s/p total gastrectomy w/ Melyssa en Y reconstruction, HTN, T2DM presenting to the ED from Dr. Cisneros's office for concern of difficulty managing nephrostomy tubes. Patient was seen in this ED on 04/13, and transferred to [facility] in [place] for further management of significant biliary tract and urinary tract obstruction. Patient is hypotensive, mildly tachycardic, dry mucous membranes and reports drinking only small amounts of water since discharge from [facility]. Spoke with Dr. Cisneros via telephone who states that she spoke with Dr. Manzo (urology) and was wants patient admitted so that he can internalize her nephrostomy drains. She recommends obtaining basic labs. Discussed case with Dr. Cuevas who also saw patient at bedside, recommends IV fluids as patient appears dehydrated. 04/24/23 13:[address] Manzo via [place] [employer] who is requesting urinalysis from each source (bilat nephrostomies and ornelas) and admission to medicine. No leukocytosis, mild stable anemia, mild hyponatremia, IV NS ordered, BUN elevated likely due to poor p.o. intake. 15:30 UA positive for 2+ leukocytes, 3+ blood, greater than 50 wbc's, 4+ bacteria. Discussed with who agrees with antibiotics. IV ceftriaxone ordered. Admission accepted by Dr. Mayo. Differential Diagnosis Differential Diagnoses: The differential diagnosis associated with the presentation includes dehydration, UTI Admission/Observation Consideration of admission/observation: Escalation of care including admission/observation considered Consult Healthcare Provider Management of the patient was discussed with: Hospitalist and Bingo Clerk (Dr. Cisneros, Dr. Manzo) Lab Data [facility] Lab Attestation statement: I reviewed the patient's lab results. As per MDM. 04/24/23 13:21 04/24/23 12:37 Labs: Lab Results 04/24/23 04/24/23 12 Range/Units 12:37 13:21 14:18 WBC 7.7 (4.8-10.8) X10*3/uL RBC 3.49 L (4.20-5.50) X10*6/uL Hgb 11.2 L (12.0-16.0) g/dl Hct 33.2 L (37.0-47.0) % MCV 95.1 (80.0-98.0) fL MCH 32.1 (27.0-33.0) pg MCHC 33.7 (31.0-35.0) g/dl RDW 13.0 (11.0-16.0) % Plt Count 188 (160-400) X10*3/uL MPV 12.4 H (9.4-12.3) fL Immature Gran % (Auto) Cancelled Neut % (Auto) Cancelled Lymph % (Auto) Cancelled [place] % (Auto) Cancelled Eos % (Auto) Cancelled Baso % (Auto) Cancelled Lymph # (Auto) Cancelled [place] # (Auto) Cancelled Eos # (Auto) Cancelled Baso # (Auto) Cancelled Abs Immat Gran (auto) Cancelled Absolute Neuts (auto) Cancelled Absolute Nucleated RBC 0.100 H (0.0-0.012) X10*3/uL Nucleated RBC % (auto) 1.3 H (0.0-0.2) /100WBC Neutrophils % (Manual) 78 H (45-73) % Band Neutrophils % 3 (3-5) % Lymphocytes % (Manual) 10 L (20-40) % Monocytes % (Manual) 9 (2-11) % Abs Neuts (Manual) 6.2 (2.0-8.3) X10*3/uL Lymphocytes # (Manual) 0.8 L (1.2-4.9) X10*3/uL Monocytes # (Manual) 0.7 (0.1-1.2) X10*3/uL Toxic Vacuolation PRESENT Platelet Estimate NORMAL (NORMAL) Plt Morphology Comment NORMAL RBC Morphology NORMAL Sodium 133 L (135-145) mmol/L Potassium 4.3 (3.3-5.1) mmol/L Chloride 97 (96-108) mmol/L Carbon Dioxide 23 (22-29) mmol/L Anion Gap 17 (12-20) BUN 37 H (9-16) mg/dL Creatinine 0.86 (0.5-1.4) mg/dL Estim Creat Clear Calc 65.1 Estimated GFR > 60 Random Glucose 200 H (60-115) mg/dL Calcium 9.3 D (8.4-10.2) mg/dL Total Bilirubin 4.3 H (0.0-1.0) mg/dL AST 49 H (5-31) U/L ALT 63 H (0-31) U/L Alkaline Phosphatase 346 H (39-117) U/L Total Protein 6.1 L (6.5-8.0) g/dL Albumin 3.1 L (3.5-5.0) g/dL Urine Color DK YELLOW Urine Appearance Cloudy Urine pH 5.5 (5.0-9.0) Ur Specific [place] 1.025 (1.005-1.025) Urine Protein 300 (3+) H (Neg-Trace) mg/dL Urine Glucose (UA) Negative (Negative) mg/dL Urine Ketones 15 (Negative) mg/dL Urine Blood Large (3+) H (Negative) Urine Nitrite Negative (Negative) Ur Leukocyte Esterase Small (1+) H (Negative) Urine RBC >20 H (0-2) /HPF Urine WBC >50 H (0-5) /HPF Urine WBC Clumps Ur Squamous Epith Cells 6-10 (0-2) /HPF Urine Bacteria None Seen (None Seen) Hyaline Casts 11-20 (0-2) /LPF Granular Casts Present Urine Yeast 04/24/23 04/24/23 04/24/23 Range/Units Unknown Unknown Unknown WBC (4.8-10.8) X10*3/uL RBC (4.20-5.50) X10*6/uL Hgb (12.0-16.0) g/dl Hct (37.0-47.0) % MCV (80.0-98.0) fL MCH (27.0-33.0) pg MCHC (31.0-35.0) g/dl RDW (11.0-16.0) % Plt Count (160-400) X10*3/uL MPV (9.4-12.3) fL Immature Gran % (Auto) Neut % (Auto) Lymph % (Auto) [place] % (Auto) Eos % (Auto) Baso % (Auto) Lymph # (Auto) [place] # (Auto) Eos # (Auto) Baso # (Auto) Abs Immat Gran (auto) Absolute Neuts (auto) Absolute Nucleated RBC (0.0-0.012) X10*3/uL Nucleated RBC % (auto) (0.0-0.2) /100WBC Neutrophils % (Manual) (45-73) % Band Neutrophils % (3-5) % Lymphocytes % (Manual) (20-40) % Monocytes % (Manual) (2-11) % Abs Neuts (Manual) (2.0-8.3) X10*3/uL Lymphocytes # (Manual) (1.2-4.9) X10*3/uL Monocytes # (Manual) (0.1-1.2) X10*3/uL Toxic Vacuolation Platelet Estimate (NORMAL) Plt Morphology Comment RBC Morphology Sodium (135-145) mmol/L Potassium (3.3-5.1) mmol/L Chloride (96-108) mmol/L Carbon Dioxide (22-29) mmol/L Anion Gap (12-20) BUN (9-16) mg/dL Creatinine (0.5-1.4) mg/dL Estim Creat Clear Calc Estimated GFR Random Glucose (60-115) mg/dL Calcium (8.4-10.2) mg/dL Total Bilirubin (0.0-1.0) mg/dL AST (5-31) U/L ALT (0-31) U/L Alkaline Phosphatase (39-117) U/L Total Protein (6.5-8.0) g/dL Albumin (3.5-5.0) g/dL Urine Color DK YELLOW DK YELLOW Urine Appearance Cloudy Cloudy Urine pH 6.5 (5.0-9.0) Ur Specific [place] (1.005-1.025) Urine Protein (Neg-Trace) mg/dL Urine Glucose (UA) (Negative) mg/dL Urine Ketones (Negative) mg/dL Urine Blood (Negative) Urine Nitrite (Negative) Ur Leukocyte Esterase (Negative) Urine RBC (0-2) /HPF Urine WBC (0-5) /HPF Urine WBC Clumps Ur Squamous Epith Cells (0-2) /HPF Urine Bacteria (None Seen) Hyaline Casts (0-2) /LPF Granular Casts Urine Yeast 04/24/23 04/24/23 04/24/23 Range/Units Unknown Unknown Unknown WBC (4.8-10.8) X10*3/uL RBC (4.20-5.50) X10*6/uL Hgb (12.0-16.0) g/dl Hct (37.0-47.0) % MCV (80.0-98.0) fL MCH (27.0-33.0) pg MCHC (31.0-35.0) g/dl RDW (11.0-16.0) % Plt Count (160-400) X10*3/uL MPV (9.4-12.3) fL Immature Gran % (Auto) Neut % (Auto) Lymph % (Auto) [place] % (Auto) Eos % (Auto) Baso % (Auto) Lymph # (Auto) [place] # (Auto) Eos # (Auto) Baso # (Auto) Abs Immat Gran (auto) Absolute Neuts (auto) Absolute Nucleated RBC (0.0-0.012) X10*3/uL Nucleated RBC % (auto) (0.0-0.2) /100WBC Neutrophils % (Manual) (45-73) % Band Neutrophils % (3-5) % Lymphocytes % (Manual) (20-40) % Monocytes % (Manual) (2-11) % Abs Neuts (Manual) (2.0-8.3) X10*3/uL Lymphocytes # (Manual) (1.2-4.9) X10*3/uL Monocytes # (Manual) (0.1-1.2) X10*3/uL Toxic Vacuolation Platelet Estimate (NORMAL) Plt Morphology Comment RBC Morphology Sodium (135-145) mmol/L Potassium (3.3-5.1) mmol/L Chloride (96-108) mmol/L Carbon Dioxide (22-29) mmol/L Anion Gap (12-20) BUN (9-16) mg/dL Creatinine (0.5-1.4) mg/dL Estim Creat Clear Calc Estimated GFR Random Glucose (60-115) mg/dL Calcium (8.4-10.2) mg/dL Total Bilirubin (0.0-1.0) mg/dL AST (5-31) U/L ALT (0-31) U/L Alkaline Phosphatase (39-117) U/L Total Protein (6.5-8.0) g/dL Albumin (3.5-5.0) g/dL Urine Color Urine Appearance Urine pH 5.5 (5.0-9.0) Ur Specific [place] 1.025 1.025 (1.005-1.025) Urine Protein 300 (3+) H 300 (3+) H (Neg-Trace) mg/dL Urine Glucose (UA) Negative (Negative) mg/dL Urine Ketones (Negative) mg/dL Urine Blood (Negative) Urine Nitrite (Negative) Ur Leukocyte Esterase (Negative) Urine RBC (0-2) /HPF Urine WBC (0-5) /HPF Urine WBC Clumps Ur Squamous Epith Cells (0-2) /HPF Urine Bacteria (None Seen) Hyaline Casts (0-2) /LPF Granular Casts Urine Yeast 04/24/23 04/24/23 04/24/23 Range/Units Unknown Unknown Unknown WBC (4.8-10.8) X10*3/uL RBC (4.20-5.50) X10*6/uL Hgb (12.0-16.0) g/dl Hct (37.0-47.0) % MCV (80.0-98.0) fL MCH (27.0-33.0) pg MCHC (31.0-35.0) g/dl RDW (11.0-16.0) % Plt Count (160-400) X10*3/uL MPV (9.4-12.3) fL Immature Gran % (Auto) Neut % (Auto) Lymph % (Auto) [place] % (Auto) Eos % (Auto) Baso % (Auto) Lymph # (Auto) [place] # (Auto) Eos # (Auto) Baso # (Auto) Abs Immat Gran (auto) Absolute Neuts (auto) Absolute Nucleated RBC (0.0-0.012) X10*3/uL Nucleated RBC % (auto) (0.0-0.2) /100WBC Neutrophils % (Manual) (45-73) % Band Neutrophils % (3-5) % Lymphocytes % (Manual) (20-40) % Monocytes % (Manual) (2-11) % Abs Neuts (Manual) (2.0-8.3) X10*3/uL Lymphocytes # (Manual) (1.2-4.9) X10*3/uL Monocytes # (Manual) (0.1-1.2) X10*3/uL Toxic Vacuolation Platelet Estimate (NORMAL) Plt Morphology Comment RBC Morphology Sodium (135-145) mmol/L Potassium (3.3-5.1) mmol/L Chloride (96-108) mmol/L Carbon Dioxide (22-29) mmol/L Anion Gap (12-20) BUN (9-16) mg/dL Creatinine (0.5-1.4) mg/dL Estim Creat Clear Calc Estimated GFR Random Glucose (60-115) mg/dL Calcium (8.4-10.2) mg/dL Total Bilirubin (0.0-1.0) mg/dL AST (5-31) U/L ALT (0-31) U/L Alkaline Phosphatase (39-117) U/L Total Protein (6.5-8.0) g/dL Albumin (3.5-5.0) g/dL Urine Color Urine Appearance Urine pH (5.0-9.0) Ur Specific [place] (1.005-1.025) Urine Protein (Neg-Trace) mg/dL Urine Glucose (UA) Negative (Negative) mg/dL Urine Ketones 40 40 (Negative) mg/dL Urine Blood Large (3+) H Large (3+) H (Negative) Urine Nitrite Positive H (Negative) Ur Leukocyte Esterase (Negative) Urine RBC (0-2) /HPF Urine WBC (0-5) /HPF Urine WBC Clumps Ur Squamous Epith Cells (0-2) /HPF Urine Bacteria (None Seen) Hyaline Casts (0-2) /LPF Granular Casts Urine Yeast 04/24/23 04/24/23 04/24/23 Range/Units Unknown Unknown Unknown WBC (4.8-10.8) X10*3/uL RBC (4.20-5.50) X10*6/uL Hgb (12.0-16.0) g/dl Hct (37.0-47.0) % MCV (80.0-98.0) fL MCH (27.0-33.0) pg MCHC (31.0-35.0) g/dl RDW (11.0-16.0) % Plt Count (160-400) X10*3/uL MPV (9.4-12.3) fL Immature Gran % (Auto) Neut % (Auto) Lymph % (Auto) [place] % (Auto) Eos % (Auto) Baso % (Auto) Lymph # (Auto) [place] # (Auto) Eos # (Auto) Baso # (Auto) Abs Immat Gran (auto) Absolute Neuts (auto) Absolute Nucleated RBC (0.0-0.012) X10*3/uL Nucleated RBC % (auto) (0.0-0.2) /100WBC Neutrophils % (Manual) (45-73) % Band Neutrophils % (3-5) % Lymphocytes % (Manual) (20-40) % Monocytes % (Manual) (2-11) % Abs Neuts (Manual) (2.0-8.3) X10*3/uL Lymphocytes # (Manual) (1.2-4.9) X10*3/uL Monocytes # (Manual) (0.1-1.2) X10*3/uL Toxic Vacuolation Platelet Estimate (NORMAL) Plt Morphology Comment RBC Morphology Sodium (135-145) mmol/L Potassium (3.3-5.1) mmol/L Chloride (96-108) mmol/L Carbon Dioxide (22-29) mmol/L Anion Gap (12-20) BUN (9-16) mg/dL Creatinine (0.5-1.4) mg/dL Estim Creat Clear Calc Estimated GFR Random Glucose (60-115) mg/dL Calcium (8.4-10.2) mg/dL Total Bilirubin (0.0-1.0) mg/dL AST (5-31) U/L ALT (0-31) U/L Alkaline Phosphatase (39-117) U/L Total Protein (6.5-8.0) g/dL Albumin (3.5-5.0) g/dL Urine Color Urine Appearance Urine pH (5.0-9.0) Ur Specific [place] (1.005-1.025) Urine Protein (Neg-Trace) mg/dL Urine Glucose (UA) (Negative) mg/dL Urine Ketones (Negative) mg/dL Urine Blood (Negative) Urine Nitrite Negative (Negative) Ur Leukocyte Esterase Small (1+) H Moderate (2+) H (Negative) Urine RBC >20 H >20 H (0-2) /HPF Urine WBC >50 H (0-5) /HPF Urine WBC Clumps Ur Squamous Epith Cells (0-2) /HPF Urine Bacteria (None Seen) Hyaline Casts (0-2) /LPF Granular Casts Urine Yeast 04/24/23 04/24/23 04/24/23 Range/Units Unknown Unknown Unknown WBC (4.8-10.8) X10*3/uL RBC (4.20-5.50) X10*6/uL Hgb (12.0-16.0) g/dl Hct (37.0-47.0) % MCV (80.0-98.0) fL MCH (27.0-33.0) pg MCHC (31.0-35.0) g/dl RDW (11.0-16.0) % Plt Count (160-400) X10*3/uL MPV (9.4-12.3) fL Immature Gran % (Auto) Neut % (Auto) Lymph % (Auto) [place] % (Auto) Eos % (Auto) Baso % (Auto) Lymph # (Auto) [place] # (Auto) Eos # (Auto) Baso # (Auto) Abs Immat Gran (auto) Absolute Neuts (auto) Absolute Nucleated RBC (0.0-0.012) X10*3/uL Nucleated RBC % (auto) (0.0-0.2) /100WBC Neutrophils % (Manual) (45-73) % Band Neutrophils % (3-5) % Lymphocytes % (Manual) (20-40) % Monocytes % (Manual) (2-11) % Abs Neuts (Manual) (2.0-8.3) X10*3/uL Lymphocytes # (Manual) (1.2-4.9) X10*3/uL Monocytes # (Manual) (0.1-1.2) X10*3/uL Toxic Vacuolation Platelet Estimate (NORMAL) Plt Morphology Comment RBC Morphology Sodium (135-145) mmol/L Potassium (3.3-5.1) mmol/L Chloride (96-108) mmol/L Carbon Dioxide (22-29) mmol/L Anion Gap (12-20) BUN (9-16) mg/dL Creatinine (0.5-1.4) mg/dL Estim Creat Clear Calc Estimated GFR Random Glucose (60-115) mg/dL Calcium (8.4-10.2) mg/dL Total Bilirubin (0.0-1.0) mg/dL AST (5-31) U/L ALT (0-31) U/L Alkaline Phosphatase (39-117) U/L Total Protein (6.5-8.0) g/dL Albumin (3.5-5.0) g/dL Urine Color Urine Appearance Urine pH (5.0-9.0) Ur Specific [place] (1.005-1.025) Urine Protein (Neg-Trace) mg/dL Urine Glucose (UA) (Negative) mg/dL Urine Ketones (Negative) mg/dL Urine Blood (Negative) Urine Nitrite (Negative) Ur Leukocyte Esterase (Negative) Urine RBC (0-2) /HPF Urine WBC >50 H (0-5) /HPF Urine WBC Clumps Present Ur Squamous Epith Cells 0-2 3-5 (0-2) /HPF Urine Bacteria 1+ 4+ (None Seen) Hyaline Casts 11-20 (0-2) /LPF Granular Casts Urine Yeast 12/18/23 Range/Units Unknown WBC (4.8-10.8) X10*3/uL RBC (4.20-5.50) X10*6/uL Hgb (12.0-16.0) g/dl Hct (37.0-47.0) % MCV (80.0-98.0) fL MCH (27.0-33.0) pg MCHC (31.0-35.0) g/dl RDW (11.0-16.0) % Plt Count (160-400) X10*3/uL MPV (9.4-12.3) fL Immature Gran % (Auto) Neut % (Auto) Lymph % (Auto) [place] % (Auto) Eos % (Auto) Baso % (Auto) Lymph # (Auto) [place] # (Auto) Eos # (Auto) Baso # (Auto) Abs Immat Gran (auto) Absolute Neuts (auto) Absolute Nucleated RBC (0.0-0.012) X10*3/uL Nucleated RBC % (auto) (0.0-0.2) /100WBC Neutrophils % (Manual) (45-73) % Band Neutrophils % (3-5) % Lymphocytes % (Manual) (20-40) % Monocytes % (Manual) (2-11) % Abs Neuts (Manual) (2.0-8.3) X10*3/uL Lymphocytes # (Manual) (1.2-4.9) X10*3/uL Monocytes # (Manual) (0.1-1.2) X10*3/uL Toxic Vacuolation Platelet Estimate (NORMAL) Plt Morphology Comment RBC Morphology Sodium (135-145) mmol/L Potassium (3.3-5.1) mmol/L Chloride (96-108) mmol/L Carbon Dioxide (22-29) mmol/L Anion Gap (12-20) BUN (9-16) mg/dL Creatinine (0.5-1.4) mg/dL Estim Creat Clear Calc Estimated GFR Random Glucose (60-115) mg/dL Calcium (8.4-10.2) mg/dL Total Bilirubin (0.0-1.0) mg/dL AST (5-31) U/L ALT (0-31) U/L Alkaline Phosphatase (39-117) U/L Total Protein (6.5-8.0) g/dL Albumin (3.5-5.0) g/dL Urine Color Urine Appearance Urine pH (5.0-9.0) Ur Specific [place] (1.005-1.025) Urine Protein (Neg-Trace) mg/dL Urine Glucose (UA) (Negative) mg/dL Urine Ketones (Negative) mg/dL Urine Blood (Negative) Urine Nitrite (Negative) Ur Leukocyte Esterase (Negative) Urine RBC (0-2) /HPF Urine WBC (0-5) /HPF Urine WBC Clumps Ur Squamous Epith Cells (0-2) /HPF Urine Bacteria (None Seen) Hyaline Casts 0-2 (0-2) /LPF Granular Casts Present Urine Yeast Present External Record Review External record reviewed: Inpatient record, Office record and Outpatient record Prescription Management I considered prescription management with: Antibiotic Discharge Plan Discharge Clinical Impression: Urinary tract infection, Gastric cancer
[2023-04-24 11:49] VITALS: O2SAT 100
[2023-04-24] MEDS: 0.9 % Sodium Chloride 1,000 ML 999 ML IV (12:51)
[2023-04-24 13:02] LABS: Alanine Aminotransferase 63 U/L (0-31); Albumin Level 3.1 g/dL (3.5-5.0); Alkaline Phosphatase 346 U/L (39-117); Anion Gap 17 (12-20); Aspartate Amino Transferase 49 U/L (5-31); Bilirubin Total 4.3 mg/dL (0.0-1.0); Blood Urea Nitrogen 37 mg/dL (9-16); Calcium 9.3 mg/dL (8.4-10.2); Carbon Dioxide 23 mmol/L (22-29); Chloride 97 mmol/L (96-108); Creatinine Clr Calc Pharmacy 65.1; Estimated Glomerular Filt Rate > 60; Glucose Random 200 mg/dL (60-115); Potassium 4.3 mmol/L (3.3-5.1); Sodium 133 mmol/L (135-145); Total Protein 6.1 g/dL (6.5-8.0)
[2023-04-24 14:24] LABS: Hematocrit 33.2 % (37.0-47.0); Hemoglobin 11.2 g/dl (12.0-16.0); Mean Corpuscular HGB Conc 33.7 g/dl (31.0-35.0); Mean Corpuscular Hemoglobin 32.1 pg (27.0-33.0); Mean Corpuscular Volume 95.1 fL (80.0-98.0); Mean Platelet Volume 12.4 fL (9.4-12.3); PLT CLUMP 1; Red Blood Count 3.49 X10*6/uL (4.20-5.50)
[2023-04-24 14:30] LABS: NRBC Pct Auto 1.3 /100WBC (0.0-0.2)
[2023-04-24 14:34] VITALS: BP 133/68; PULSE 90; RESP 15; O2SAT 98
[2023-04-24] MEDS: oxyCODONE HCl Immed Release 5 MG TABLET PO (14:34)
[2023-04-24 14:51] LABS: Appearance Urine Cloudy; Color Urine DK YELLOW; Glucose Urine UA Negative (Negative); Leukocyte Esterase Urine Small (1+) (Negative); Nitrite Urine Negative (Negative); PH 5.5 (5.0-9.0); Specific Gravity - Urine 1.025 (1.005-1.025); UMIC TRIGGER UACC YES; Urine Blood Large (3+) (Negative); Urine Ketones 15 mg/dL (Negative); Urine Protein 300 (3+) mg/dL (Neg-Trace)
[2023-04-24 14:51] LABS: Appearance Urine Cloudy; Color Urine DK YELLOW; Glucose Urine UA Negative (Negative); Leukocyte Esterase Urine Moderate (2+) (Negative); Leukocyte Esterase Urine Small (1+) (Negative); Nitrite Urine Negative (Negative); Nitrite Urine Positive (Negative); PH 5.5 (5.0-9.0); PH 6.5 (5.0-9.0); Specific Gravity - Urine 1.025 (1.005-1.025); UMIC TRIGGER UACC YES; Urine Blood Large (3+) (Negative); Urine Ketones 40 mg/dL (Negative); Urine Protein 300 (3+) mg/dL (Neg-Trace)
[2023-04-24 15:13] LABS: RBC Urine >20 /HPF (0-2); UACC Culture Trigger YES; WBC Urine >50 /HPF (0-5)
[2023-04-24 15:14] LABS: Bacteria Urine 4+ (None Seen); Hyaline Casts Urine 0-2 /LPF (0-2); WBC Clumps Urine Present
[2023-04-24 15:16] LABS: Bacteria Urine None Seen (None Seen); Granular Casts Urine Present; RBC Urine >20 /HPF (0-2); UACC Culture Trigger YES; WBC Urine >50 /HPF (0-5)
[2023-04-24 15:19] LABS: Bacteria Urine 1+ (None Seen); Granular Casts Urine Present; RBC Urine >20 /HPF (0-2); Squamous Epithelial Cell Urine 0-2 /HPF (0-2); UACC Culture Trigger YES; WBC Urine >50 /HPF (0-5)
[2023-04-24 15:36] LABS: Band Neutrophils Percent 3 % (3-5); Lymphocytes Percent Manual 10 % (20-40); Monocytes Percent Manual 9 % (2-11); Neutrophils Percent Manual 78 % (45-73)
[2023-04-24 15:37] LABS: Platelet Estimate NORMAL (NORMAL); Platelet Morphology Comment NORMAL; RBC Morphology NORMAL; Toxic Vacuolation PRESENT
[2023-04-24 15:38] LABS: Lymphocytes Absolute Manual 0.8 X10*3/uL (1.2-4.9); Monocytes Absolute Manual 0.7 X10*3/uL (0.1-1.2); Neutrophils Absolute Manual 6.2 X10*3/uL (2.0-8.3); Platelet Count 188 X10*3/uL (160-400); White Blood Count 7.7 X10*3/uL (4.8-10.8)
--- NOTE | 2023-04-24 16:49 | PHA.MEDREC ---
Pharmacy Consult ? Medication Reconciliation Pharmacy has completed the medication reconciliation. Patient reported medications. Reports no longer on HCTZ. Sherry Govea, DarbyD
[2023-04-24 17:09] VITALS: BP 118/60; PULSE 99; RESP 18; O2SAT 97
[2023-04-24] MEDS: Lactated Ringers 1,000 ML 100 ML IVCONT (17:32)
[2023-04-24] MEDS: cefTRIAXone sodium 1 GM in 0.9 % Sodium Chloride 50 ML IV (17:33)
[2023-04-24] MEDS: Enoxaparin Sodium 40 MG/0.4 ML SYRINGE SUBCUT (17:33)
[2023-04-24 18:16] LABS: Glucose, Whole Blood 163 mg/dL (60-115)
[2023-04-24] MEDS: Insulin Lispro 100 UNIT/ML 3 ML VIAL SUBCUT (18:41)
--- NOTE | 2023-04-24 18:41 | PM.IMHP ---
History of Present Illness Date of Service: 04/24/23 Chief Complaint: Dehydration 67-year-old female with history of metastatic gastric adenocarcinoma s/p total gastrectomy w/ Melyssa en Y reconstruction, HTN, T2DM presenting to the ED from Dr. Cisneros's office for concern of difficulty managing nephrostomy tubes. Patient was seen in this ED on 04/13, and transferred to [facility] in [place] for further management of significant biliary tract and urinary tract obstruction. Patient was discharged home from [facility] on , was told to change dressings around biliary and nephrostomy drains after 3 days. states that [facility] has not been to their home yet to address this. Patient complains of chronic right upper quadrant abdominal pain as well as nausea. She denies vomiting or diarrhea. She denies fevers. She denies chest pain, palpitations, shortness of breath. Patient and state that she is tolerating small amounts of p.o. fluids but has not been eating. Patient reports that the long-term plan is additional chemotherapy. She is currently on oxycodone to manage her pain, ER course ER discussed with Urology who recommended admit to Medicine with cultures and will see in a.m.; given a g ceftriaxone after cultures obtained. Admit for further management Review of Systems Review of Systems: Denies chest pain Denies shortness of breath Denies nausea vomiting diarrhea Denies fever chills [facility] Medical History (Updated 04/24/23 @ 18:44 by Mamadou Mayo DO) Dehydration fever Gastric cancer Essential hypertension Type 2 diabetes mellitus with hyperglycemia Lab test negative for COVID-19 virus Hx of diverticulitis of colon History of cellulitis Family History Father Pancreatic cancer Mother NHL (non-Hodgkin's lymphoma) Maternal Grandfather Prostate cancer Maternal Grandmother Diabetes Heart disease Paternal Grandfather Diabetes Son Asthma Surgical History Hx of endoscopy History of gastrectomy Hx of colonoscopy History of esophagogastroduodenoscopy (EGD) Hx of appendectomy S/P right knee arthroscopy (~2002) Hx of tonsillectomy H/O tubal ligation S/P cholecystectomy (~1988) Social History Household Members: Spouse Housing: House Are you a primary associate director career services to a significant other at home: No Do you presently have visiting nurse or other home services: No Alcohol intake: never Comment: decreasing fever Patient Tobacco Use Status: Never used Tobacco Smoked in Last 30 Days: No e-Cigarette/Vaping Use: Never Used Second Hand Smoke Exposure: No Use of substances other than those prescribed or required for medical reasons: No Advance Directives: Yes Advance Directives on File: Yes Advance Directives Date on File: 08/11/20 Nutrition Risks: Anorexia service: No Current occupational status: unemployed and previously employed 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 Enoxaparin Sodium (Enoxaparin Sodium 40 Mg/0.4 Ml Syringe) 40 mg SUBCUT Q24H [facility] Last Admin: 04/24/23 17:33 Dose: 40 mg Glucose (Glucose Gel 15 Gm Gel..Gram.) 15 gm PO Q15M PRN; Protocol PRN Reason: per Hypoglycemia Standing Ord. Lactated Ringer's (Lr) 1,000 mls @ 100 mls/hr IVCONT .Q10H [facility] Last Admin: 04/24/23 17:32 Dose: 100 mls/hr Ceftriaxone Sodium 1 gm/ (Sodium Chloride) 50 mls @ 100 mls/hr IV Q24H [facility] Insulin Human Lispro (Insulin Lispro 100 Unit/Ml 3 Ml Vial) 0 unit SUBCUT QIDACHS [facility]; Protocol Morphine Sulfate (Morphine Sulfate 4 Mg/Ml Cartridge) 4 mg IVPUSH Q4H PRN; Protocol PRN Reason: Pain, Severe (Pain Scale 7-10) Ondansetron HCl (Ondansetron Hcl 4 Mg/2 Ml Vial) 4 mg IVPUSH Q8H PRN PRN Reason: Nausea and Vomiting Oxycodone HCl (Oxycodone Hcl Immed Release 5 Mg Tablet) 5 mg PO Q4H PRN PRN Reason: Pain, Moderate(Pain Scale 4-6) Sodium Chloride (0.9 % Sodium Chloride Flush 3 Ml Syringe) [facility] Medication Instructions Recorded Confirmed Last Taken Type multivitamin 1 tab PO DAILY 05/11/20 04/24/23 04/13/23 History cholecalciferol (vitamin D3) 25 25 mcg PO DAILY 04/13/23 04/24/23 04/13/23 History mcg (1,000 unit) tablet cyanocobalamin (vitamin B-12) 5,000 mcg sublingual DAILY 04/13/23 04/24/23 04/13/23 History 5,000 mcg sublingual tablet lisinopril 10 mg tablet 10 mg PO DAILY@2300 04/13/23 04/24/23 04/24/23 History metformin 500 mg tablet 500 mg PO DAILY@1500 04/13/23 04/24/23 04/24/23 History Physical Exam Vital Signs and Narrative: Vital Signs: Last Vital Signs Temp 96.8 F 04/24/23 10:33 Pulse 99 04/24/23 17:09 Resp 18 04/24/23 17:09 BP 118/60 04/24/23 17:09 Pulse Ox 97 04/24/23 17:09 O2 Del Method Room Air 04/24/23 17:09 BMI result Body Mass Index 28.3 Const: Other: Ill-appearing female resting comfortably in bed Resp: Other: Clear to auscultation bilaterally no rales rhonchi or wheezes Cardio: Other: No S4; positive S1-S2; no S3 murmurs rubs or gallops GI: Other: Soft nontender nondistended normoactive bowel sounds Back/Spine/Pelvis: Other: Bilateral percutaneous nephrostomy tubes Extrem: Other: No edema bilaterally Results Labs 04/24/23 13:21 04/24/23 12:37 Labs: Laboratory Results - last 24 hr 04/24/23 04/24/23 04/24/23 12:37 13:21 14:18 MCV 95.1 MCH 32.1 MCHC 33.7 RDW 13.0 Plt Count 188 MPV 12.4 H Immature Gran % (Auto) Cancelled Neut % (Auto) Cancelled Lymph % (Auto) Cancelled Gordon % (Auto) Cancelled Eos % (Auto) Cancelled Baso % (Auto) Cancelled Lymph # (Auto) Cancelled Gordon # (Auto) Cancelled Eos # (Auto) Cancelled Baso # (Auto) Cancelled Abs Immat Gran (auto) Cancelled Absolute Neuts (auto) Cancelled Absolute Nucleated RBC 0.100 H Nucleated RBC % (auto) 1.3 H Neutrophils % (Manual) 78 H Band Neutrophils % 3 Lymphocytes % (Manual) 10 L Monocytes % (Manual) 9 Abs Neuts (Manual) 6.2 Lymphocytes # (Manual) 0.8 L Monocytes # (Manual) 0.7 Toxic Vacuolation PRESENT Platelet Estimate NORMAL Plt Morphology Comment NORMAL RBC Morphology NORMAL Anion Gap 17 Estim Creat Clear Calc 65.1 Estimated GFR > 60 POC Glucose Random Glucose 200 H Calcium 9.3 D Total Bilirubin 4.3 H AST 49 H ALT 63 H Alkaline Phosphatase 346 H Total Protein 6.1 L Albumin 3.1 L Urine Color DK YELLOW Urine Appearance Cloudy Urine pH 5.5 Ur Specific Hoffman 1.025 Urine Protein 300 (3+) H Urine Glucose (UA) Negative Urine Ketones 15 Urine Blood Large (3+) H Urine Nitrite Negative Ur Leukocyte Esterase Small (1+) H Urine RBC >20 H Urine WBC >50 H Urine WBC Clumps Ur Squamous Epith Cells 6-10 Urine Bacteria None Seen Hyaline Casts 11-20 Granular Casts Present Urine Yeast 04/24/23 04/24/23 04/24/23 18:12 Unknown Unknown MCV MCH MCHC RDW Plt Count MPV Immature Gran % (Auto) Neut % (Auto) Lymph % (Auto) Gordon % (Auto) Eos % (Auto) Baso % (Auto) Lymph # (Auto) Gordon # (Auto) Eos # (Auto) Baso # (Auto) Abs Immat Gran (auto) Absolute Neuts (auto) Absolute Nucleated RBC Nucleated RBC % (auto) Neutrophils % (Manual) Band Neutrophils % Lymphocytes % (Manual) Monocytes % (Manual) Abs Neuts (Manual) Lymphocytes # (Manual) Monocytes # (Manual) Toxic Vacuolation Platelet Estimate Plt Morphology Comment RBC Morphology Anion Gap Estim Creat Clear Calc Estimated GFR POC Glucose 163 H Random Glucose Calcium Total Bilirubin AST ALT Alkaline Phosphatase Total Protein Albumin Urine Color DK YELLOW DK YELLOW Urine Appearance Cloudy Urine pH Ur Specific Hoffman Urine Protein Urine Glucose (UA) Urine Ketones Urine Blood Urine Nitrite Ur Leukocyte Esterase Urine RBC Urine WBC Urine WBC Clumps Ur Squamous Epith Cells Urine Bacteria Hyaline Casts Granular Casts Urine Yeast 04/24/23 04/24/23 04/24/23 Unknown Unknown Unknown MCV MCH MCHC RDW Plt Count MPV Immature Gran % (Auto) Neut % (Auto) Lymph % (Auto) Gordon % (Auto) Eos % (Auto) Baso % (Auto) Lymph # (Auto) Gordon # (Auto) Eos # (Auto) Baso # (Auto) Abs Immat Gran (auto) Absolute Neuts (auto) Absolute Nucleated RBC Nucleated RBC % (auto) Neutrophils % (Manual) Band Neutrophils % Lymphocytes % (Manual) Monocytes % (Manual) Abs Neuts (Manual) Lymphocytes # (Manual) Monocytes # (Manual) Toxic Vacuolation Platelet Estimate Plt Morphology Comment RBC Morphology Anion Gap Estim Creat Clear Calc Estimated GFR POC Glucose Random Glucose Calcium Total Bilirubin AST ALT Alkaline Phosphatase Total Protein Albumin Urine Color Urine Appearance Cloudy Urine pH 6.5 5.5 Ur Specific Hoffman 1.025 1.025 Urine Protein 300 (3+) H Urine Glucose (UA) Urine Ketones Urine Blood Urine Nitrite Ur Leukocyte Esterase Urine RBC Urine WBC Urine WBC Clumps Ur Squamous Epith Cells Urine Bacteria Hyaline Casts Granular Casts Urine Yeast 04/24/23 04/24/23 04/24/23 Unknown Unknown Unknown MCV MCH MCHC RDW Plt Count MPV Immature Gran % (Auto) Neut % (Auto) Lymph % (Auto) Gordon % (Auto) Eos % (Auto) Baso % (Auto) Lymph # (Auto) Gordon # (Auto) Eos # (Auto) Baso # (Auto) Abs Immat Gran (auto) Absolute Neuts (auto) Absolute Nucleated RBC Nucleated RBC % (auto) Neutrophils % (Manual) Band Neutrophils % Lymphocytes % (Manual) Monocytes % (Manual) Abs Neuts (Manual) Lymphocytes # (Manual) Monocytes # (Manual) Toxic Vacuolation Platelet Estimate Plt Morphology Comment RBC Morphology Anion Gap Estim Creat Clear Calc Estimated GFR POC Glucose Random Glucose Calcium Total Bilirubin AST ALT Alkaline Phosphatase Total Protein Albumin Urine Color Urine Appearance Urine pH Ur Specific Hoffman Urine Protein 300 (3+) H Urine Glucose (UA) Negative Negative Urine Ketones 40 40 Urine Blood Large (3+) H Urine Nitrite Ur Leukocyte Esterase Urine RBC Urine WBC Urine WBC Clumps Ur Squamous Epith Cells Urine Bacteria Hyaline Casts Granular Casts Urine Yeast 04/24/23 04/24/23 04/24/23 Unknown Unknown Unknown MCV [facility] MCHC RDW Plt Count MPV Immature Gran % (Auto) Neut % (Auto) Lymph % (Auto) Gordon % (Auto) Eos % (Auto) Baso % (Auto) Lymph # (Auto) Gordon # (Auto) Eos # (Auto) Baso # (Auto) Abs Immat Gran (auto) Absolute Neuts (auto) Absolute Nucleated RBC Nucleated RBC % (auto) Neutrophils % (Manual) Band Neutrophils % Lymphocytes % (Manual) Monocytes % (Manual) Abs Neuts (Manual) Lymphocytes # (Manual) Monocytes # (Manual) Toxic Vacuolation Platelet Estimate Plt Morphology Comment RBC Morphology Anion Gap Estim Creat Clear Calc Estimated GFR POC Glucose Random Glucose Calcium Total Bilirubin AST ALT Alkaline Phosphatase Total Protein Albumin Urine Color Urine Appearance Urine pH Ur Specific Hoffman Urine Protein Urine Glucose (UA) Urine Ketones Urine Blood Large (3+) H Urine Nitrite Positive H Negative Ur Leukocyte Esterase Small (1+) H Moderate (2+) H Urine RBC >20 H Urine WBC Urine WBC Clumps Ur Squamous Epith Cells Urine Bacteria Hyaline Casts Granular Casts Urine Yeast 04/24/23 04/24/23 04/24/23 Unknown Unknown Unknown MCV [facility] MCHC RDW Plt Count MPV Immature Gran % (Auto) Neut % (Auto) Lymph % (Auto) Gordon % (Auto) Eos % (Auto) Baso % (Auto) Lymph # (Auto) Gordon # (Auto) Eos # (Auto) Baso # (Auto) Abs Immat Gran (auto) Absolute Neuts (auto) Absolute Nucleated RBC Nucleated RBC % (auto) Neutrophils % (Manual) Band Neutrophils % Lymphocytes % (Manual) Monocytes % (Manual) Abs Neuts (Manual) Lymphocytes # (Manual) Monocytes # (Manual) Toxic Vacuolation Platelet Estimate Plt Morphology Comment RBC Morphology Anion Gap Estim Creat Clear Calc Estimated GFR POC Glucose Random Glucose Calcium Total Bilirubin AST ALT Alkaline Phosphatase Total Protein Albumin Urine Color Urine Appearance Urine pH Ur Specific Hoffman Urine Protein Urine Glucose (UA) Urine Ketones Urine Blood Urine Nitrite Ur Leukocyte Esterase Urine RBC >20 H Urine WBC >50 H >50 H Urine WBC Clumps Present Ur Squamous Epith Cells 0-2 3-5 Urine Bacteria 1+ Hyaline Casts Granular Casts Urine Yeast 04/24/23 04/24/23 Unknown Unknown MCV MCH MCHC RDW Plt Count MPV Immature Gran % (Auto) Neut % (Auto) Lymph % (Auto) Gordon % (Auto) Eos % (Auto) Baso % (Auto) Lymph # (Auto) Gordon # (Auto) Eos # (Auto) Baso # (Auto) Abs Immat Gran (auto) Absolute Neuts (auto) Absolute Nucleated RBC Nucleated RBC % (auto) Neutrophils % (Manual) Band Neutrophils % Lymphocytes % (Manual) Monocytes % (Manual) Abs Neuts (Manual) Lymphocytes # (Manual) Monocytes # (Manual) Toxic Vacuolation Platelet Estimate Plt Morphology Comment RBC Morphology Anion Gap Estim Creat Clear Calc Estimated GFR POC Glucose Random Glucose Calcium Total Bilirubin AST ALT Alkaline Phosphatase Total Protein Albumin Urine Color Urine Appearance Urine pH Ur Specific Hoffman Urine Protein Urine Glucose (UA) Urine Ketones Urine Blood Urine Nitrite Ur Leukocyte Esterase Urine RBC Urine WBC Urine WBC Clumps Ur Squamous Epith Cells Urine Bacteria 4+ Hyaline Casts 11-20 0-2 Granular Casts Present Urine Yeast Present Assessment and Plan (1) Gastric cancer: Qualifiers: Malignant neoplasm of stomach location: unspecified location Qualified Code(s): C16.9 - Malignant neoplasm of stomach, unspecified Status: Acute (2) Dehydration fever: Status: Acute (3) Essential hypertension: Status: Acute (4) Type 2 diabetes mellitus with hyperglycemia: Qualifiers: Diabetes mellitus poultry scientist insulin use: without poultry scientist use Qualified Code(s): E11.65 - Type 2 diabetes mellitus with hyperglycemia Status: Acute Plan 67-year-old female with history of metastatic gastric adenocarcinoma s/p total gastrectomy w/ Melyssa en Y reconstruction, HTN, T2DM presenting to the ED from Dr. Cisneros's office for concern of difficulty managing nephrostomy tubes. also describes decline over the last several weeks with essentially no p.o. intake over the last week. 1. Metastatic gastric adenocarcinoma -slowly declining .... Essentially no intake x1 week -volume repletion with lactated Ringer's -nutritional consult in a.m. -consult Dr. Cisneros 2. Dehydration (backdrop of newly placed bilateral nephrostomy tubes) -volume repletion as above -urology consult regarding nephrostomy tubes -follow renals/divalents 3.HTN -acceptable control. . . Poor p.o. intake -hold oral agents -restart when clinically appropriate 4. Diabetes type 2 -acceptable control off therapies -lispro correctional scale -Adjust as indicated DNR/DNI Lovenox Patient will require 48 hours of inpatient stay to assure volume repletion and management of nephrostomy tubes. She will require specialist consult with urology/oncology. This cannot be achieved in a lesser acute setting Quality Stroke Does the patient have a stroke diagnosis?: No VTE Prior VTE?: No VTE Risk Level:: Medical - moderate - high VTE Device Contraindication: Treatment Not Indicated VTE Drug Contraindication: N/A - Med Ordered
[2023-04-24] MEDS: Morphine Sulfate 4 MG/ML CARTRIDGE IVPUSH (20:04)
[2023-04-24] MEDS: 0.9 % Sodium Chloride Flush 3 ML SYRINGE IVFLUSH (20:04)
[2023-04-24 20:06] VITALS: BMI 18.2
[2023-04-24 20:12] VITALS: BP 142/65; PULSE 93; RESP 16; TEMP 36.4; O2SAT 97
[2023-04-24 20:25] LABS: Glucose, Whole Blood 166 mg/dL (60-115)
[2023-04-25] VITALS (9 sets, daily range): BP systolic 106–151; BP diastolic 56–67; PULSE 67–98; RESP 15–18; TEMP 36.1–36.8; O2SAT 96–99; BMI 19.4
[2023-04-25] MEDS: Lactated Ringers 1,000 ML 100 ML IVCONT ×3 (02:51→18:44)
[2023-04-25] MEDS: Morphine Sulfate 4 MG/ML CARTRIDGE IVPUSH ×3 (05:33→19:34)
[2023-04-25 06:03] LABS: MANUAL DIFF FLAG NO
[2023-04-25 06:20] LABS: Basophils Percent Auto 0.2 % (0-2); Eosinophils Percent Auto 0.4 % (0-4); Hematocrit 30.7 % (37.0-47.0); Hemoglobin 10.1 g/dl (12.0-16.0); Imm Gran Abs Auto 0.01 X10*3/uL (0.00-0.03); Imm Gran Pct Auto 0.2 % (0.0-0.4); Lymphocytes Absolute Auto 0.6 X10*3/uL (1.2-4.9); Lymphocytes Percent Auto 13.5 % (20-40); Mean Corpuscular HGB Conc 32.9 g/dl (31.0-35.0); Mean Corpuscular Hemoglobin 31.6 pg (27.0-33.0); Mean Corpuscular Volume 95.9 fL (80.0-98.0); Mean Platelet Volume 11.1 fL (9.4-12.3); Monocytes Absolute Auto 0.5 X10*3/uL (0.1-1.2); Monocytes Percent Auto 10.9 % (2-11); Neutrophils Absolute Auto 3.5 x10*3/uL (2.0-8.3); Neutrophils Percent Auto 74.8 % (45-73); Platelet Count 268 X10*3/uL (160-400); Red Cell Distribution Width 12.6 % (11.0-16.0); White Blood Count 4.7 X10*3/uL (4.8-10.8)
[2023-04-25 06:24] LABS: Alanine Aminotransferase 52 U/L (0-31); Albumin Level 2.9 g/dL (3.5-5.0); Alkaline Phosphatase 333 U/L (39-117); Anion Gap 14 (12-20); Aspartate Amino Transferase 50 U/L (5-31); Bilirubin Total 3.6 mg/dL (0.0-1.0); Blood Urea Nitrogen 25 mg/dL (9-16); Calcium 9.5 mg/dL (8.4-10.2); Carbon Dioxide 28 mmol/L (22-29); Chloride 99 mmol/L (96-108); Creatinine Clr Calc Pharmacy 61.8; Estimated Glomerular Filt Rate > 60; Glucose Fasting 130 mg/dL (60-99); Potassium 4.2 mmol/L (3.3-5.1); Sodium 137 mmol/L (135-145); Total Protein 5.7 g/dL (6.5-8.0)
[2023-04-25 07:24] LABS: Glucose, Whole Blood 129 mg/dL (60-115)
--- NOTE | 2023-04-25 08:35 | P.CNHO_ITS ---
Subjective - Subjective Chief complaint: Consult for: Gastric carcinoma. Patient: new to practice Consult date: 04/25/23 Primary Care Provider: MD Maria Esther Medical Summary: DIAGNOSIS: METASTATIC GASTRIC CARCINOMA. HPI - Consult Narrative Reason for consult: Consult for: Recurrent gastric carcinoma. Narrative: Sheryl Espinoza is a 67 year old unfortunately lady, with the history of gastric carcinoma diagnosed in 2019. HPI: She had presented to the hospital on 04/13 with abdominal pain, elevated LFTs and urinary retention. She had a Simeon placed. CT scan of the abdomen revealed: Progression of disease with extensive soft tissue masses throughout the abdomen and pelvis resulting in severe biliary tract obstruction, urinary tract obstruction and severe attenuation of the right renal artery/right renal vein, left renal vein and IVC. Marked wall thickening of the cecum to the splenic flexure. Marked wall thickening of the duodenum including the ampulla. Enhancing soft tissue masses in the right pelvis and at the base of the urinary bladder. Diffuse heterogeneity of the bone marrow. Advise correlation with nuclear medicine bone scan. She was transferred to [facility] in [place] to facilitate percutaneous transhepatic biliary drainage. She had that placed on 04/17. She also had nephrostomy tubes placed on account of the urinary tract obstruction. She is now admitted for further management and placement of internal urinary stent. Past Medical History Medical History: Gastric cancer Essential hypertension Type 2 diabetes mellitus with hyperglycemia Lab test negative for COVID-19 virus Hx of diverticulitis of colon History of cellulitis Surgical History: Hx of endoscopy History of gastrectomy Hx of colonoscopy History of esophagogastroduodenoscopy (EGD) Hx of appendectomy S/P right knee arthroscopy (~2002) Hx of tonsillectomy H/O tubal ligation S/P cholecystectomy (~1988) Family History: Father Pancreatic cancer Mother NHL (non-Hodgkin's lymphoma) Maternal Grandfather Prostate cancer Maternal Grandmother Diabetes Heart disease Paternal Grandfather Diabetes Son Asthma Social History: Household Members: Spouse Housing: House Are you a primary healthcare analyst to a significant other at home: No Do you presently have visiting nurse or other home services: No Alcohol intake: never Comment: decreasing fever Patient Tobacco Use Status: Never used Tobacco Smoked in Last 30 Days: No e-Cigarette/Vaping Use: Never Used Second Hand Smoke Exposure: No Use of substances other than those prescribed or required for medical reasons: No Review of Systems - Constitutional Reports system reviewed and no additional complaints, except as documented - Eyes Reports system reviewed and no additional complaints, except as documented - ENT Reports system reviewed and no additional complaints, except as documented - Cardiovascular Reports system reviewed and no additional complaints, except as documented - Respiratory Reports no additional respiratory complaints - Gastrointestinal Reports system reviewed and no additional complaints, except as documented - Genitourinary Reports no additional female genitourinary complaints - Musculoskeletal Reports system reviewed and no additional complaints, except as documented - Integumentary/Breasts Skin/Breast: Reports no additional skin complaints - Neurologic Reports system reviewed and no additional complaints, except as documented - Psychiatric Reports system reviewed and no additional complaints, except as documented - Endocrine Reports no additional endocrine complaints - Hematologic/Lymphatic Reports system reviewed and no additional complaints, except as documented - Allergic/Immunologic Reports system reviewed and no additional complaints, except as documented Oncology Screenings - ECOG Performance Status ECOG Performance Status: 2 [facility] Medical History: Medical History (Last Updated 04/24/23 @ 18:44 by Mamadou Mayo DO) Dehydration fever Essential hypertension Gastric cancer History of cellulitis Hx of diverticulitis of colon Lab test negative for COVID-19 virus Type 2 diabetes mellitus with hyperglycemia Functional capacity: wheelchair bound Patient : No Family History: Family History (Last Reviewed 04/24/23 @ 18:43 by Mamadou Maoy DO) Father Pancreatic cancer Mother NHL (non-Hodgkin's lymphoma) Maternal Grandfather Prostate cancer Maternal Grandmother Diabetes Heart disease Paternal Grandfather Diabetes Son Asthma Surgical History: Surgical History (Last Reviewed 04/24/23 @ 18:43 by Mamadou Mayo DO) H/O tubal ligation History of esophagogastroduodenoscopy (EGD) History of gastrectomy Hx of appendectomy Hx of colonoscopy Hx of endoscopy Hx of tonsillectomy S/P cholecystectomy Onset Date: ~1988 S/P right knee arthroscopy Onset Date: ~2002 Social History: Social History (Last Reviewed 04/24/23 @ 18:43 by Mamadou Mayo DO) Living Situation History: Household Members: Family Housing: House Are you a primary healthcare analyst to a significant other at home: No Do you presently have visiting nurse or other home services: Yes Do you presently have visiting nurse or other home services comment: VNA's and home health. 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 Enoxaparin Sodium (Enoxaparin Sodium 40 Mg/0.4 Ml Syringe) 40 mg SUBCUT Q24H [facility] Last Admin: 04/24/23 17:33 Dose: 40 mg Glucose (Glucose Gel 15 Gm Gel..Gram.) 15 gm PO Q15M PRN; Protocol PRN Reason: per Hypoglycemia Standing Ord. Lactated Ringer's (Lr) 1,000 mls @ 100 mls/hr IVCONT .Q10H [facility] Last Admin: 04/25/23 02:51 Dose: 100 mls/hr Ceftriaxone Sodium 1 gm/ (Sodium Chloride) 50 mls @ 100 mls/hr IV Q24H [facility] Insulin Human Lispro (Insulin Lispro 100 Unit/Ml 3 Ml Vial) 0 unit SUBCUT QIDACHS [facility]; Protocol Last Admin: 04/25/23 07:30 Dose: Not Given Morphine Sulfate (Morphine Sulfate 4 Mg/Ml Cartridge) 4 mg IVPUSH Q4H PRN; Protocol PRN Reason: Pain, Severe (Pain Scale 7-10) Last Admin: 04/25/23 05:33 Dose: 4 mg Ondansetron HCl (Ondansetron Hcl 4 Mg/2 Ml Vial) 4 mg IVPUSH Q8H PRN PRN Reason: Nausea and Vomiting Oxycodone HCl (Oxycodone Hcl Immed Release 5 Mg Tablet) 5 mg PO Q4H PRN PRN Reason: Pain, Moderate(Pain Scale 4-6) Sodium Chloride (0.9 % Sodium Chloride Flush 3 Ml Syringe) 3 ml IVFLUSH QSHIFT [facility] Last Admin: 04/24/23 20:04 Dose: 3 ml Home Medications Medication Instructions Recorded Confirmed Type multivitamin 1 tab PO DAILY 05/11/20 04/24/23 History cholecalciferol (vitamin D3) 25 25 mcg PO DAILY 04/13/23 04/24/23 History mcg (1,000 unit) tablet cyanocobalamin (vitamin B-12) 5,000 mcg sublingual DAILY 04/13/23 04/24/23 History 5,000 mcg sublingual tablet lisinopril 10 mg tablet 10 mg PO DAILY@2300 04/13/23 04/24/23 History metformin 500 mg tablet 500 mg PO DAILY@1500 04/13/23 04/24/23 History Allergies Allergy/AdvReac Type Severity Reaction Status Date / Time meperidine [From Demerol] Allergy Severe Swelling Verified 04/13/23 09:20 Physical Exam Vital signs: Vital Signs Temp 96.9 F 04/25/23 07:27 Pulse 88 04/25/23 07:27 Resp 16 04/25/23 07:27 BP 118/60 04/25/23 07:27 Pulse Ox 98 04/25/23 07:27 O2 Del Method Room Air 04/25/23 07:27 Intake & Output 04/24/23 04/25/23 04/25/23 18:59 06:59 18:59 Intake Total 1050 / 2031.667 981.667 / 2031.667 Output Total 700 / 700 Balance 1050 / 1331.667 281.667 / 1331.667 Urine Output (Average ml/kg/hr) 0.00 Intake: Intake, Oral Amount 50 / 50 Intake, IV Amount 1050 / 1981.667 931.667 / 1981.667 0.9 % Sodium Chloride 1,000 ml 1000 / 1000 @ 999 mls/hr IV .Q1H1M [facility] Rx#: [id number] cefTRIAXone sodium 1 gm In 0.9 50 / 50 % Sodium Chloride 50 ml @ 100 mls/hr IV ONCE ONE Rx#: [id number] Lactated Ringers 1,000 ml @ 100 931.667 / 931.667 mls/hr IVCONT .Q10H [facility] Rx#: [id number] Output: Output, Tube Amount 700 / 700 Left Nephrostomy 200 / 200 Right Billiary 200 / 200 Right Nephrostomy 300 / 300 Output, Urine Amount (Catheter) 0 / 0 Urethral 0 / 0 Other: NPO No: ice chips Weight 77.111 kg 49.5 kg Weight in Grams 74609 Weight 49.5 kg - Constitutional Present: moderate distress - Routine HEENT Exam Head: Present: normal inspection, normocephalic ENT: Present: mucous membranes moist - Routine Neck Exam Present: supple - Routine Respiratory Exam Present: CTAB - Routine Cardiovascular Exam Cardiovascular: Present: RRR, S1, S2 - Routine Abdominal Exam Present: normal bowel sounds, tenderness. Absent: nontender - Routine Extremities Exam Present: nontender - Routine Skin Exam Present: intact - Routine Neurological Exam Present: alert, oriented X3, moving all extremities, normal speech - Routine Psychiatric Exam Present: depressed Hem/Onc Consult Result - Labs CBC & Chem 7: 04/25/23 05:47 04/25/23 05:47 Labs: Short CBC 04/24/23 04/25/23 Range/Units 13:21 05:47 WBC 7.7 4.7 L (4.8-10.8) X10*3/uL Hgb 11.2 L 10.1 L (12.0-16.0) g/dl Hct 33.2 L 30.7 L (37.0-47.0) % Plt Count 188 268 D (160-400) X10*3/uL BMP 04/24/23 04/25/23 12:37 05:47 Sodium 133 L 137 Potassium 4.3 4.2 Chloride 97 99 Carbon Dioxide 23 28 BUN 37 H 25 H Creatinine 0.86 0.69 Calcium 9.3 D 9.5 Liver Function 04/24/23 04/25/23 Range/Units 12:37 05:47 Total Bilirubin 4.3 H 3.6 H (0.0-1.0) mg/dL AST 49 H 50 H (5-31) U/L ALT 63 H 52 H (0-31) U/L Alkaline Phosphatase 346 H 333 H (39-117) U/L Albumin 3.1 L 2.9 L (3.5-5.0) g/dL Urine 04/24/23 04/24/23 04/24/23 Range/Units 14:18 Unknown Unknown Urine Color DK YELLOW DK YELLOW DK YELLOW Urine Appearance Cloudy Cloudy Urine pH 5.5 (5.0-9.0) Ur Specific [place] 1.025 (1.005-1.025) Urine Protein 300 (3+) H (Neg-Trace) mg/dL Urine Glucose (UA) Negative (Negative) mg/dL 04/24/23 04/24/23 04/24/23 Range/Units Unknown Unknown Unknown Urine Color Urine Appearance Cloudy Urine pH 6.5 5.5 (5.0-9.0) Ur Specific [place] 1.025 1.025 (1.005-1.025) Urine Protein 300 (3+) H (Neg-Trace) mg/dL Urine Glucose (UA) (Negative) mg/dL 04/24/23 04/24/23 Range/Units Unknown Unknown Urine Color Urine Appearance Urine pH (5.0-9.0) Ur Specific [place] (1.005-1.025) Urine Protein 300 (3+) H (Neg-Trace) mg/dL Urine Glucose (UA) Negative Negative (Negative) mg/dL Assessment and Plan Patient Active problem list reviewed?: Yes (1) Gastric cancer Problem details: Gastrectomy, omentectomy, esophagojejunostomy, Melyssa-en-Y for gastric cancer Status: Acute Assessment and plan: This is a pleasant 67-year-old lady with a history of diabetes and diverticulosis. She had epigastric pain, was started on omeprazole. In February of 2020, she was admitted with a bout of diverticulitis. CT scan of the abdomen revealed: 1. Short segment mural thickening and pericolonic infiltrative changes in the proximal descending colon most consistent with acute diverticulitis or short segment colitis as a definitive diverticulum is not seen. 2. Mild left pelvocaliectasis without obstructing abnormality could be secondary to left ureteropelvic junction stenosis. Left renal cysts demonstrate benign features. Nonobstructing right upper pole intrarenal calculus. 3. Mild free fluid in the pelvis is presumed secondary to the colonic findings. 4. Very small hiatal hernia. An upper endoscopy and colonoscopy were done on 04/24/[address] Fields. Uper endoscopy revealed: Poorly differentiated carcinoma, in the stomach. Possibility of metastatic lobular carcinoma of the breast was raised. Baseline labs, including the tumor markers: CEA 5.1, Ca 27.29 103. a PET scan was done for staging. This revealed: No foci of abnormal FDG activity are visualized. There are no abnormalities visualized suspicious for metastatic or other malignant lesions. She had endoscopic ultrasound for pathological staging. This was done at [facility], by Dr. Blanco. The area of abnormality was very subtle. Biopsies came back positive. She had FLOT chemotherapy in the neoadjuvant setting. CT scan of the chest abdomen pelvis on 10/19/20 revealed: Un remarkable CT chest with no pulmonary nodule or mass. Right central venous port tip is in the distal SVC. Moderate sized hiatal hernia. There is a large stool in the colon suggestive of severe constipation. No abnormal sized abdominal lymph nodes seen. Distended urinary bladder. She underwent endoscopic ultrasound This was done on November by Dr. Blanco. There were no lesions seen. The random biopsies of the stomach lining were negative. She then underwent surgery on 12/[address] Rajan. 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 Tumor site: Residual tumor most prominent along the greater curvature. She then received palliative chemotherapy, in the second-line setting, as delineated in the [place] trial. According to NCCN guidelines preferred regimen include: Paclitaxel 80 mg, on days 1, 8 and 15 + Ramucirumab 8 mg/kg, week 1 and 15 Q 28 days. l tried to see if I can substitute Abraxane for the paclitaxel. However unfortunately Abraxane was not available, then, from the corporate quality manager. She had a CT scan of the chest abdomen pelvis on 07/12/21: Question postsurgical change to the stomach and small esophageal hernia. No definite mass appreciated. No enlarged lymph nodes. Stool throughout the colon suggestive of constipation. Question mild wall thickening or colitis of the cecum. She had an upper endoscopy on 06/21/[address] Fields which revealed: Small bowel biopsy: Normal limits, negative for celiac disease. Anastomotic biopsy: Squamocolumnar mucosa with moderate chronic active inflammation. There was no evidence for residual carcinoma. This is encouraging. She had her cycle 6 day 15, on 09/09/21. She had noticed some trouble swallowing. She was referred to GI for upper endoscopy with dilatation. She had that done on 09/21/[address] Kay: Balloon dilatation of esophageal jejunal anastomosis with a 19 mm CRE balloon was done. Upper esophagus then dilated to 18 mm with resistance felt and superficial tears noted with heme. No evidence for tumor in the gastric remnant. She had a PET scan on 09/29/21: 1. There is a focus of increased FDG activity in the right anterior aspect of the tongue with no associated CT abnormality. The finding is nonspecific, but was not present on the prior PET CT scan. This could be physiological muscular activity in the tongue, but the asymmetry and intensity is suspicious for a lesion at this site. Correlation with direct visualization is recommended for initial follow-up. This could also be further characterized with IV contrast enhanced CT scan of the neck soft tissues. 2. No other abnormalities suspicious for metastatic or other malignant lesions are noted. 3. Diffuse vascular calcifications including coronary. Since then she has had EGDs, every 3-6 months which have been negative. She would require dilatation of the esophagus from time to time. She had presented to the hospital on 04/13 with abdominal pain, elevated LFTs and urinary retention. She had a Simeon placed. CT scan of the abdomen revealed: Progression of disease with extensive soft tissue masses throughout the abdomen and pelvis resulting in severe biliary tract obstruction, urinary tract obstruction and severe attenuation of the right renal artery/right renal vein, left renal vein and IVC. Marked wall thickening of the cecum to the splenic flexure. Marked wall thickening of the duodenum including the ampulla. Enhancing soft tissue masses in the right pelvis and at the base of the urinary bladder. Diffuse heterogeneity of the bone marrow. Advise correlation with nuclear medicine bone scan. She was transferred to [facility] in [place] to facilitate percutaneous transhepatic biliary drainage. She had that placed on 04/17. Her LFTs have normalized. She also had nephrostomy tubes placed on account of the urinary tract obstruction. PLAN: She will have the cyst urinary stents placed today by Dr. Manzo. IR will be able to internalize the biliary drainage catheter and placed stent. I have requested records from [facility] to review. Will follow her labs carefully. Requested pathology to check immuno stains to see if she has any actionable mutation i.e. PDL1 etc. Will continue to institute pain control. Thank you Cc: Dr. Fields - Time Spent With Patient Time Spent with Patient (in minutes): 30
--- NOTE | 2023-04-25 09:03 | MHC.CM.PN ---
IMM 04/25 PT LIVES WITH SPOUSE. PT IS INDEPENDENT AT BASELINE. WAS JUST RECENTLY DC [facility] AND SET UP WITH A VNA. PT STATES THEY HAVE NOT SEEN HER YET AND DOES NOT RECALL THE NAME OF THE AGENCY. PT IS OPEN TO A NEW VNA REFERRAL AND WOULD LIKE [facility]. +HCP (COPY REQUESTED) [place] [facility] [place] ESTRADA. DP: HOME WITH NEW VNA. PT CHOOSES [facility]. PT WOULD LIKE TO GO HOME VS. REHAB IF REC. [facility] WILL TRANSPORT HOME. CM WILL CONTINUE TO FOLLOW FOR ANY CHANGE IN DC PLAN/NEEDS
[2023-04-25] MEDS: oxyCODONE HCl Immed Release 5 MG TABLET PO (09:23)
--- NOTE | 2023-04-25 10:03 | PM.UROCN ---
History of Present Illness Consult details Consult date: 04/25/23 Narrative: CC: Bilateral PCN drains 67-year-old female History of gastric carcinoma with gastrectomy and Melyssa-en-Y Had presented with difficulty managing nephrostomy tubes Recently seen and diagnosed bilateral hydronephrosis Had been transferred to [facility] for PCN placement Difficulty managing PCN tube since discharge. Unable to sleep since tubes and back Discussed stent internalization This will be organized Review of Systems Constitutional: Constitutional: Denies chills and Denies fever(s) Cardiovascular: Cardiovascular: Reports no additional cardiovascular complaints and Denies syncope Respiratory: Respiratory: Denies cough Gastrointestinal: Gastrointestinal: Denies abdominal pain and Denies heartburn Genitourinary: Genitourinary: Reports as per HPI and Denies change in libido Neurologic: Denies syncope Psychiatric: Psychiatric: Denies change in libido Endocrine: Endocrine: Denies change in libido [facility] Past Medical History Medical History (Updated 04/25/23 @ 16:09 by Shukri Manzo MD) Dehydration fever Gastric cancer Essential hypertension Type 2 diabetes mellitus with hyperglycemia Lab test negative for COVID-19 virus Hx of diverticulitis of colon History of cellulitis Family History Family History Father Pancreatic cancer Mother NHL (non-Hodgkin's lymphoma) Maternal Grandfather Prostate cancer Maternal Grandmother Diabetes Heart disease Paternal Grandfather Diabetes Son Asthma Surgical History Surgical History Hx of endoscopy History of gastrectomy Hx of colonoscopy History of esophagogastroduodenoscopy (EGD) Hx of appendectomy S/P right knee arthroscopy (~2002) Hx of tonsillectomy H/O tubal ligation S/P cholecystectomy (~1988) Social History Social History Household Members: Family Housing: House Are you a primary care management coordinator to a significant other at home: No Do you presently have visiting nurse or other home services: Yes (VNA's and home health.) Alcohol intake: never Comment: decreasing fever Patient Tobacco Use Status: Never used Tobacco e-Cigarette/Vaping Use: Never Used Second Hand Smoke Exposure: No Advance Directives Date on File: 08/11/20 service: No Current occupational status: unemployed and previously employed 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 Enoxaparin Sodium (Enoxaparin Sodium 40 Mg/0.4 Ml Syringe) 40 mg SUBCUT Q24H [facility] Last Admin: 04/24/23 17:33 Dose: 40 mg Glucose (Glucose Gel 15 Gm Gel..Gram.) 15 gm PO Q15M PRN; Protocol PRN Reason: per Hypoglycemia Standing Ord. Lactated Ringer's (Lr) 1,000 mls @ 100 mls/hr IVCONT .Q10H [facility] Last Admin: 04/25/23 02:51 Dose: 100 mls/hr Ceftriaxone Sodium 1 gm/ (Sodium Chloride) 50 mls @ 100 mls/hr IV Q24H [facility] Insulin Human Lispro (Insulin Lispro 100 Unit/Ml 3 Ml Vial) 0 unit SUBCUT QIDACHS [facility]; Protocol Last Admin: 04/25/23 07:30 Dose: Not Given Morphine Sulfate (Morphine Sulfate 4 Mg/Ml Cartridge) 4 mg IVPUSH Q4H PRN; Protocol PRN Reason: Pain, Severe (Pain Scale 7-10) Last Admin: 04/25/23 05:33 Dose: 4 mg Ondansetron HCl (Ondansetron Hcl 4 Mg/2 Ml Vial) 4 mg IVPUSH Q8H PRN PRN Reason: Nausea and Vomiting Oxycodone HCl (Oxycodone Hcl Immed Release 5 Mg Tablet) 5 mg PO Q4H PRN PRN Reason: Pain, Moderate(Pain Scale 4-6) Last Admin: 04/25/23 09:23 Dose: 5 mg Sodium Chloride (0.9 % Sodium Chloride Flush 3 Ml Syringe) [facility] Admin: 04/25/23 09:24 Dose: Not Given Home Medications Medication Instructions Recorded Confirmed Last Taken Type multivitamin 1 tab PO DAILY 05/11/20 04/24/23 04/13/23 History cholecalciferol (vitamin D3) 25 25 mcg PO DAILY 04/13/23 04/24/23 04/13/23 History mcg (1,000 unit) tablet cyanocobalamin (vitamin B-12) 5,000 mcg sublingual DAILY 04/13/23 04/24/23 04/13/23 History 5,000 mcg sublingual tablet lisinopril 10 mg tablet 10 mg PO DAILY@2300 04/13/23 04/24/23 04/24/23 History metformin 500 mg tablet 500 mg PO DAILY@1500 04/13/23 04/24/23 04/24/23 History Physical Exam Vital Signs: Vital Signs: Last Vital Signs Temp 96.9 F 04/25/23 07:27 Pulse 88 04/25/23 07:27 Resp 16 04/25/23 07:27 BP 118/60 04/25/23 07:27 Pulse Ox 98 04/25/23 07:27 O2 Del Method Room Air 04/25/23 07:27 BMI result Body Mass Index 18.2 Const: General: cooperative, healthy appearing, comfortable and no acute distress Orientation/consciousness: patient oriented x3 HEENT: Face and sinus: Yes normal facial exam Mouth: moist mucous membranes Neck: Neck: Yes normal visual inspection, Yes full ROM and Yes trachea midline Chest: Chest palpation & inspection: normal inspection of the chest Resp: Effort & Inspection: normal respiratory effort, able to speak in complete sentences and no respiratory distress GI: Inspection: Yes normal to inspection Back/Spine/Pelvis: Cervical Spine: normal cervical lordosis Thoracic/Lumbar Spine: thoracic and lumbar spine normal to inspection Skin: General skin exam: no rashes or lesions noted Neuro: General: patient oriented x3, gait normal, tone normal and moves all extremities Extrem: General: Yes normal to inspection and Yes capillary refill normal Results Labs 04/25/23 05:47 04/25/23 05:47 Labs: Abnormal lab results 04/24/23 04/24/23 04/24/23 Range/Units 12:37 13:21 14:18 WBC (4.8-10.8) X10*3/uL RBC 3.49 L (4.20-5.50) X10*6/uL Hgb 11.2 L (12.0-16.0) g/dl Hct 33.2 L (37.0-47.0) % MPV 12.4 H (9.4-12.3) fL Neut % (Auto) (45-73) % Lymph % (Auto) (20-40) % Lymph # (Auto) (1.2-4.9) X10*3/uL Absolute Nucleated RBC 0.100 H (0.0-0.012) X10*3/uL Nucleated RBC % (auto) 1.3 H (0.0-0.2) /100WBC Neutrophils % (Manual) 78 H (45-73) % Lymphocytes % (Manual) 10 L (20-40) % Lymphocytes # (Manual) 0.8 L (1.2-4.9) X10*3/uL Sodium 133 L (135-145) mmol/L BUN 37 H (9-16) mg/dL POC Glucose (60-115) mg/dL Random Glucose 200 H (60-115) mg/dL Fasting Glucose (60-99) mg/dL Total Bilirubin 4.3 H (0.0-1.0) mg/dL AST 49 H (5-31) U/L ALT 63 H (0-31) U/L Alkaline Phosphatase 346 H (39-117) U/L Total Protein 6.1 L (6.5-8.0) g/dL Albumin 3.1 L (3.5-5.0) g/dL Urine Protein 300 (3+) H (Neg-Trace) mg/dL Urine Blood Large (3+) H (Negative) Urine Nitrite (Negative) Ur Leukocyte Esterase Small (1+) H (Negative) Urine RBC >20 H (0-2) /HPF Urine WBC >50 H (0-5) /HPF 04/24/23 04/24/23 04/24/23 Range/Units 18:12 20:14 Unknown WBC (4.8-10.8) X10*3/uL RBC (4.20-5.50) X10*6/uL Hgb (12.0-16.0) g/dl Hct (37.0-47.0) % MPV (9.4-12.3) fL Neut % (Auto) (45-73) % Lymph % (Auto) (20-40) % Lymph # (Auto) (1.2-4.9) X10*3/uL Absolute Nucleated RBC (0.0-0.012) X10*3/uL Nucleated RBC % (auto) (0.0-0.2) /100WBC Neutrophils % (Manual) (45-73) % Lymphocytes % (Manual) (20-40) % Lymphocytes # (Manual) (1.2-4.9) X10*3/uL Sodium (135-145) mmol/L BUN (9-16) mg/dL POC Glucose 163 H 166 H (60-115) mg/dL Random Glucose (60-115) mg/dL Fasting Glucose (60-99) mg/dL Total Bilirubin (0.0-1.0) mg/dL AST (5-31) U/L ALT (0-31) U/L Alkaline Phosphatase (39-117) U/L Total Protein (6.5-8.0) g/dL Albumin (3.5-5.0) g/dL Urine Protein 300 (3+) H (Neg-Trace) mg/dL Urine Blood (Negative) Urine Nitrite (Negative) Ur Leukocyte Esterase (Negative) Urine RBC (0-2) /HPF Urine WBC (0-5) /HPF 04/24/23 04/24/23 04/24/23 Range/Units Unknown Unknown Unknown WBC (4.8-10.8) X10*3/uL RBC (4.20-5.50) X10*6/uL Hgb (12.0-16.0) g/dl Hct (37.0-47.0) % MPV (9.4-12.3) fL Neut % (Auto) (45-73) % Lymph % (Auto) (20-40) % Lymph # (Auto) (1.2-4.9) X10*3/uL Absolute Nucleated RBC (0.0-0.012) X10*3/uL Nucleated RBC % (auto) (0.0-0.2) /100WBC Neutrophils % (Manual) (45-73) % Lymphocytes % (Manual) (20-40) % Lymphocytes # (Manual) (1.2-4.9) X10*3/uL Sodium (135-145) mmol/L BUN (9-16) mg/dL POC Glucose (60-115) mg/dL Random Glucose (60-115) mg/dL Fasting Glucose (60-99) mg/dL Total Bilirubin (0.0-1.0) mg/dL AST (5-31) U/L ALT (0-31) U/L Alkaline Phosphatase (39-117) U/L Total Protein (6.5-8.0) g/dL Albumin (3.5-5.0) g/dL Urine Protein 300 (3+) H (Neg-Trace) mg/dL Urine Blood Large (3+) H Large (3+) H (Negative) Urine Nitrite Positive H (Negative) Ur Leukocyte Esterase Small (1+) H Moderate (2+) H (Negative) Urine RBC >20 H (0-2) /HPF Urine WBC (0-5) /HPF 04/24/23 04/24/23 04/25/23 Range/Units Unknown Unknown 05:47 WBC 4.7 L (4.8-10.8) X10*3/uL RBC 3.20 L (4.20-5.50) X10*6/uL Hgb 10.1 L (12.0-16.0) g/dl Hct 30.7 L (37.0-47.0) % MPV (9.4-12.3) fL Neut % (Auto) 74.8 H (45-73) % Lymph % (Auto) 13.5 L (20-40) % Lymph # (Auto) 0.6 L (1.2-4.9) X10*3/uL Absolute Nucleated RBC (0.0-0.012) X10*3/uL Nucleated RBC % (auto) (0.0-0.2) /100WBC Neutrophils % (Manual) (45-73) % Lymphocytes % (Manual) (20-40) % Lymphocytes # (Manual) (1.2-4.9) X10*3/uL Sodium (135-145) mmol/L BUN 25 H (9-16) mg/dL POC Glucose (60-115) mg/dL Random Glucose (60-115) mg/dL Fasting Glucose 130 H (60-99) mg/dL Total Bilirubin 3.6 H (0.0-1.0) mg/dL AST 50 H (5-31) U/L ALT 52 H (0-31) U/L Alkaline Phosphatase 333 H (39-117) U/L Total Protein 5.7 L (6.5-8.0) g/dL Albumin 2.9 L (3.5-5.0) g/dL Urine Protein (Neg-Trace) mg/dL Urine Blood (Negative) Urine Nitrite (Negative) Ur Leukocyte Esterase (Negative) Urine RBC >20 H (0-2) /HPF Urine WBC >50 H >50 H (0-5) /HPF 04/25/23 Range/Units 07:11 WBC (4.8-10.8) X10*3/uL RBC (4.20-5.50) X10*6/uL Hgb (12.0-16.0) g/dl Hct (37.0-47.0) % MPV (9.4-12.3) fL Neut % (Auto) (45-73) % Lymph % (Auto) (20-40) % Lymph # (Auto) (1.2-4.9) X10*3/uL Absolute Nucleated RBC (0.0-0.012) X10*3/uL Nucleated RBC % (auto) (0.0-0.2) /100WBC Neutrophils % (Manual) (45-73) % Lymphocytes % (Manual) (20-40) % Lymphocytes # (Manual) (1.2-4.9) X10*3/uL Sodium (135-145) mmol/L BUN (9-16) mg/dL POC Glucose 129 H (60-115) mg/dL Random Glucose (60-115) mg/dL Fasting Glucose (60-99) mg/dL Total Bilirubin (0.0-1.0) mg/dL AST (5-31) U/L ALT (0-31) U/L Alkaline Phosphatase (39-117) U/L Total Protein (6.5-8.0) g/dL Albumin (3.5-5.0) g/dL Urine Protein (Neg-Trace) mg/dL Urine Blood (Negative) Urine Nitrite (Negative) Ur Leukocyte Esterase (Negative) Urine RBC (0-2) /HPF Urine WBC (0-5) /HPF Short CBC 04/24/23 04/25/23 Range/Units 13:21 05:47 WBC 7.7 4.7 L (4.8-10.8) X10*3/uL Hgb 11.2 L 10.1 L (12.0-16.0) g/dl Hct 33.2 L 30.7 L (37.0-47.0) % Plt Count 188 268 D (160-400) X10*3/uL BMP 04/24/23 04/25/23 12:37 05:47 Sodium 133 L 137 Potassium 4.3 4.2 Chloride 97 99 Carbon Dioxide 23 28 BUN 37 H 25 H Creatinine 0.86 0.69 Calcium 9.3 D 9.5 Liver Function 04/24/23 04/25/23 Range/Units 12:37 05:47 Total Bilirubin 4.3 H 3.6 H (0.0-1.0) mg/dL AST 49 H 50 H (5-31) U/L ALT 63 H 52 H (0-31) U/L Alkaline Phosphatase 346 H 333 H (39-117) U/L Albumin 3.1 L 2.9 L (3.5-5.0) g/dL Urine 04/24/23 04/24/23 04/24/23 Range/Units 14:18 Unknown Unknown Urine Color DK YELLOW DK YELLOW DK YELLOW Urine Appearance Cloudy Cloudy Urine pH 5.5 (5.0-9.0) Ur Specific Fay 1.025 (1.005-1.025) Urine Protein 300 (3+) H (Neg-Trace) mg/dL Urine Glucose (UA) Negative (Negative) mg/dL 04/24/23 04/24/23 04/24/23 Range/Units Unknown Unknown Unknown Urine Color Urine Appearance Cloudy Urine pH 6.5 5.5 (5.0-9.0) Ur Specific Fay 1.025 1.025 (1.005-1.025) Urine Protein 300 (3+) H (Neg-Trace) mg/dL Urine Glucose (UA) (Negative) mg/dL 04/24/23 04/24/23 Range/Units Unknown Unknown Urine Color Urine Appearance Urine pH (5.0-9.0) Ur Specific Fay (1.005-1.025) Urine Protein 300 (3+) H (Neg-Trace) mg/dL Urine Glucose (UA) Negative Negative (Negative) mg/dL All other labs normal. Assessment and Plan (1) Urinary tract infection: Status: Acute (2) Hydronephrosis: Status: Acute Plan Risks, benefits and alternatives to therapy were discussed. These include but are not limited to infection, bleeding, damage to local organs and tissues, need for further interventions. Anesthetic risks regarding cardiac arrhythmia, blood clots, and potential mortality were discussed. The patient understands the typical recovery time and the outpatient nature of the procedure. After consideration of these risks the patient gives full informed consent and they wish to move ahead with the procedure. Cystoscopy, bilateral retrograde, bilateral stent placement, removal PCN Procedures Date of Service Date of Service: 04/25/23
--- NOTE | 2023-04-25 10:46 | MHC.CLN ---
RE: CONSULT PT WITH INCREASED RISK FOR MALNUTRITION R/T HX GASTRIC CA WITH TOTAL GASTRECTOMY RECONSTRUCTIVE SX. 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 PT STATED SHE LOST 15# SINCE GASTRIC SX X 2 YEARS AGO (NONSIGNIFICANT) DIET RX: REGULAR-APPROPRIATE PT RECEPTIVE TO DRINKING SUPPLEMENT HOWEVER PT FOLLOWS VEGAN DIET. MONITOR PO INTAKE CLOSELY AND ENCOURAGE PO SEE ALSO FULL CLINICAL NUTRITION ASSESSMENT
[2023-04-25 11:24] LABS: Glucose, Whole Blood 157 mg/dL (60-115)
[2023-04-25] MEDS: Insulin Lispro 100 UNIT/ML 3 ML VIAL SUBCUT (11:41)
[2023-04-25] MEDS: 0.9 % Sodium Chloride Flush 3 ML SYRINGE IVFLUSH (15:29)
--- NOTE | 2023-04-25 15:47 | P.CONAN_ITS ---
HPI - Anesthesia Eval Consult details Narrative: 67 yo female patient for Cysto, Bilateral ureteroscopies, anterogrades, stent PMFSH Active Problems Active Problems: All Active Problems (Updated 04/25/23 @ 15:48 by Karla Jernigan MD) Dehydration fever (Acute) Gastric cancer (Acute) Urinary tract infection (Acute) Essential hypertension (Acute) Diverticulitis (Acute) UTI (urinary tract infection) (Acute) Erosive esophagitis (Acute) Coarse tremors (Acute) Loose bowel movements (Acute) Mouth ulcer (Acute) History of gastrectomy (Acute) Hypercholesterolemia (Acute) Type 2 diabetes mellitus with hyperglycemia (Acute) Past Medical History Medical History Dehydration fever Gastric cancer Essential hypertension Type 2 diabetes mellitus with hyperglycemia Lab test negative for COVID-19 virus Hx of diverticulitis of colon History of cellulitis Functional capacity: wheelchair bound Family History Family History Father Pancreatic cancer Mother NHL (non-Hodgkin's lymphoma) Maternal Grandfather Prostate cancer Maternal Grandmother Diabetes Heart disease Paternal Grandfather Diabetes Son Asthma Family history of problems with anesthesia: No Surgical History Surgical History Hx of endoscopy History of gastrectomy Hx of colonoscopy History of esophagogastroduodenoscopy (EGD) Hx of appendectomy S/P right knee arthroscopy (~2002) Hx of tonsillectomy H/O tubal ligation S/P cholecystectomy (~1988) History of Problems with Anesthesia: No Social History Social History Household Members: Family Housing: House Are you a primary critical care rn to a significant other at home: No Do you presently have visiting nurse or other home services: Yes (VNA's and home health.) Alcohol intake: never Comment: decreasing fever Patient Tobacco Use Status: Never used Tobacco e-Cigarette/Vaping Use: Never Used Second Hand Smoke Exposure: No Advance Directives Date on File: 08/11/20 service: No Current occupational status: unemployed and previously employed 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 Enoxaparin Sodium (Enoxaparin Sodium 40 Mg/0.4 Ml Syringe) 40 mg SUBCUT Q24H [facility] Last Admin: 04/24/23 17:33 Dose: 40 mg Glucose (Glucose Gel 15 Gm Gel..Gram.) 15 gm PO Q15M PRN; Protocol PRN Reason: per Hypoglycemia Standing Ord. Lactated Ringer's (Lr) 1,000 mls @ 100 mls/hr IVCONT .Q10H [facility] Last Admin: 04/25/23 12:37 Dose: 100 mls/hr Ceftriaxone Sodium 1 gm/ (Sodium Chloride) 50 mls @ 100 mls/hr IV Q24H [facility] Insulin Human Lispro (Insulin Lispro 100 Unit/Ml 3 Ml Vial) 0 unit SUBCUT QIDACHS [facility]; Protocol Last Admin: 04/25/23 11:41 Dose: 2 unit Morphine Sulfate (Morphine Sulfate 4 Mg/Ml Cartridge) 4 mg IVPUSH Q4H PRN; Protocol PRN Reason: Pain, Severe (Pain Scale 7-10) Last Admin: 04/25/23 13:51 Dose: 4 mg Ondansetron HCl (Ondansetron Hcl 4 Mg/2 Ml Vial) 4 mg IVPUSH Q8H PRN PRN Reason: Nausea and Vomiting Oxycodone HCl (Oxycodone Hcl Immed Release 5 Mg Tablet) 5 mg PO Q4H PRN PRN Reason: Pain, Moderate(Pain Scale 4-6) Last Admin: 04/25/23 09:23 Dose: 5 mg Sodium Chloride (0.9 % Sodium Chloride Flush 3 Ml Syringe) 3 ml IVFLUSH QSHIFT [facility] Last Admin: 04/25/23 15:29 Dose: 3 ml Home Medications Medication Instructions Recorded Confirmed Last Taken Type multivitamin 1 tab PO DAILY 05/11/20 04/24/23 04/13/23 History cholecalciferol (vitamin D3) 25 25 mcg PO DAILY 04/13/23 04/24/23 04/13/23 History mcg (1,000 unit) tablet cyanocobalamin (vitamin B-12) 5,000 mcg sublingual DAILY 04/13/23 04/24/23 04/13/23 History 5,000 mcg sublingual tablet lisinopril 10 mg tablet 10 mg PO DAILY@2300 04/13/23 04/24/23 04/24/23 History metformin 500 mg tablet 500 mg PO DAILY@1500 04/13/23 04/24/23 04/24/23 History Exam Height,Weight and Vital Signs: Height 5 ft 5 in Weight 53 kg Last Vital Signs Temp 96.9 F 04/25/23 07:27 Pulse 88 04/25/23 07:27 Resp 16 04/25/23 07:27 BP 118/60 04/25/23 07:27 Pulse Ox 98 04/25/23 07:27 O2 Del Method Room Air 04/25/23 07:27 Vital Signs Temp Pulse Resp BP Pulse Ox O2 Del Method 04/25/23 16:15 98.2 F 98 18 106/63 96 Room Air 04/25/23 07:27 96.9 F 88 16 118/60 98 Room Air 04/25/23 03:59 97.3 F 95 16 114/56 L 99 Room Air 04/24/23 20:12 97.6 F 93 16 142/65 H 97 Room Air 04/24/23 17:09 99 18 118/60 97 Room Air Pertinent Lab Results Pertinent Lab Results: Laboratory Tests 04/24/23 04/24/23 04/24/23 12:37 13:21 14:18 WBC 7.7 RBC 3.49 L Hgb 11.2 L Hct 33.2 L MCV 95.1 MCH 32.1 MCHC 33.7 RDW 13.0 Plt Count 188 MPV 12.4 H Immature Gran % (Auto) Cancelled Neut % (Auto) Cancelled Lymph % (Auto) Cancelled Walsh % (Auto) Cancelled Eos % (Auto) Cancelled Baso % (Auto) Cancelled Lymph # (Auto) Cancelled Walsh # (Auto) Cancelled Eos # (Auto) Cancelled Baso # (Auto) Cancelled Abs Immat Gran (auto) Cancelled Absolute Neuts (auto) Cancelled Absolute Nucleated RBC 0.100 H Nucleated RBC % (auto) 1.3 H Neutrophils % (Manual) 78 H Band Neutrophils % 3 Lymphocytes % (Manual) 10 L Monocytes % (Manual) 9 Abs Neuts (Manual) 6.2 Lymphocytes # (Manual) 0.8 L Monocytes # (Manual) 0.7 Toxic Vacuolation PRESENT Platelet Estimate NORMAL Plt Morphology Comment NORMAL RBC Morphology NORMAL Sodium 133 L Potassium 4.3 Chloride 97 Carbon Dioxide 23 Anion Gap 17 BUN 37 H Creatinine 0.86 Estim Creat Clear Calc 65.1 Estimated GFR > 60 POC Glucose Random Glucose 200 H Fasting Glucose Calcium 9.3 D Total Bilirubin 4.3 H AST 49 H ALT 63 H Alkaline Phosphatase 346 H Total Protein 6.1 L Albumin 3.1 L Urine Color DK YELLOW Urine Appearance Cloudy Urine pH 5.5 Ur Specific Mcgill 1.025 Urine Protein 300 (3+) H Urine Glucose (UA) Negative Urine Ketones 15 Urine Blood Large (3+) H Urine Nitrite Negative Ur Leukocyte Esterase Small (1+) H Urine RBC >20 H Urine WBC >50 H Urine WBC Clumps Ur Squamous Epith Cells 6-10 Urine Bacteria None Seen Hyaline Casts 11-20 Granular Casts Present Urine Yeast 04/24/23 04/24/23 04/24/23 18:12 20:14 Unknown WBC RBC Hgb Hct MCV MCH MCHC RDW Plt Count MPV Immature Gran % (Auto) Neut % (Auto) Lymph % (Auto) Walsh % (Auto) Eos % (Auto) Baso % (Auto) Lymph # (Auto) Walsh # (Auto) Eos # (Auto) Baso # (Auto) Abs Immat Gran (auto) Absolute Neuts (auto) Absolute Nucleated RBC Nucleated RBC % (auto) Neutrophils % (Manual) Band Neutrophils % Lymphocytes % (Manual) Monocytes % (Manual) Abs Neuts (Manual) Lymphocytes # (Manual) Monocytes # (Manual) Toxic Vacuolation Platelet Estimate Plt Morphology Comment RBC Morphology Sodium Potassium Chloride Carbon Dioxide Anion Gap BUN Creatinine Estim Creat Clear Calc Estimated GFR POC Glucose 163 H 166 H Random Glucose Fasting Glucose Calcium Total Bilirubin AST ALT Alkaline Phosphatase Total Protein Albumin Urine Color DK YELLOW Urine Appearance Urine pH Ur Specific Mcgill Urine Protein Urine Glucose (UA) Urine Ketones Urine Blood Urine Nitrite Ur Leukocyte Esterase Urine RBC Urine WBC Urine WBC Clumps Ur Squamous Epith Cells Urine Bacteria Hyaline Casts Granular Casts Urine Yeast 04/24/23 04/24/23 04/24/23 Unknown Unknown Unknown WBC RBC Hgb Hct MCV MCH MCHC RDW Plt Count MPV Immature Gran % (Auto) Neut % (Auto) Lymph % (Auto) Walsh % (Auto) Eos % (Auto) Baso % (Auto) Lymph # (Auto) Walsh # (Auto) Eos # (Auto) Baso # (Auto) Abs Immat Gran (auto) Absolute Neuts (auto) Absolute Nucleated RBC Nucleated RBC % (auto) Neutrophils % (Manual) Band Neutrophils % Lymphocytes % (Manual) Monocytes % (Manual) Abs Neuts (Manual) Lymphocytes # (Manual) Monocytes # (Manual) Toxic Vacuolation Platelet Estimate Plt Morphology Comment RBC Morphology Sodium Potassium Chloride Carbon Dioxide Anion Gap BUN Creatinine Estim Creat Clear Calc Estimated GFR POC Glucose Random Glucose Fasting Glucose Calcium Total Bilirubin AST ALT Alkaline Phosphatase Total Protein Albumin Urine Color DK YELLOW Urine Appearance Cloudy Cloudy Urine pH 6.5 5.5 Ur Specific Mcgill 1.025 Urine Protein Urine Glucose (UA) Urine Ketones Urine Blood Urine Nitrite Ur Leukocyte Esterase Urine RBC Urine WBC Urine WBC Clumps Ur Squamous Epith Cells Urine Bacteria Hyaline Casts Granular Casts Urine Yeast 04/24/23 04/24/23 04/24/23 Unknown Unknown Unknown WBC RBC Hgb Hct MCV MCH MCHC RDW Plt Count MPV Immature Gran % (Auto) Neut % (Auto) Lymph % (Auto) Walsh % (Auto) Eos % (Auto) Baso % (Auto) Lymph # (Auto) Walsh # (Auto) Eos # (Auto) Baso # (Auto) Abs Immat Gran (auto) Absolute Neuts (auto) Absolute Nucleated RBC Nucleated RBC % (auto) Neutrophils % (Manual) Band Neutrophils % Lymphocytes % (Manual) Monocytes % (Manual) Abs Neuts (Manual) Lymphocytes # (Manual) Monocytes # (Manual) Toxic Vacuolation Platelet Estimate Plt Morphology Comment RBC Morphology Sodium Potassium Chloride Carbon Dioxide Anion Gap BUN Creatinine Estim Creat Clear Calc Estimated GFR POC Glucose Random Glucose Fasting Glucose Calcium Total Bilirubin AST ALT Alkaline Phosphatase Total Protein Albumin Urine Color Urine Appearance Urine pH Ur Specific Mcgill 1.025 Urine Protein 300 (3+) H 300 (3+) H Urine Glucose (UA) Negative Negative Urine Ketones 40 Urine Blood Urine Nitrite Ur Leukocyte Esterase Urine RBC Urine WBC Urine WBC Clumps Ur Squamous Epith Cells Urine Bacteria Hyaline Casts Granular Casts Urine Yeast 04/24/23 04/24/23 04/24/23 Unknown Unknown Unknown WBC RBC Hgb Hct MCV MCH MCHC RDW Plt Count MPV Immature Gran % (Auto) Neut % (Auto) Lymph % (Auto) Walsh % (Auto) Eos % (Auto) Baso % (Auto) Lymph # (Auto) Walsh # (Auto) Eos # (Auto) Baso # (Auto) Abs Immat Gran (auto) Absolute Neuts (auto) Absolute Nucleated RBC Nucleated RBC % (auto) Neutrophils % (Manual) Band Neutrophils % Lymphocytes % (Manual) Monocytes % (Manual) Abs Neuts (Manual) Lymphocytes # (Manual) Monocytes # (Manual) Toxic Vacuolation Platelet Estimate Plt Morphology Comment RBC Morphology Sodium Potassium Chloride Carbon Dioxide Anion Gap BUN Creatinine Estim Creat Clear Calc Estimated GFR POC Glucose Random Glucose Fasting Glucose Calcium Total Bilirubin AST ALT Alkaline Phosphatase Total Protein Albumin Urine Color Urine Appearance Urine pH Ur Specific Mcgill Urine Protein Urine Glucose (UA) Urine Ketones 40 Urine Blood Large (3+) H Large (3+) H Urine Nitrite Positive H Negative Ur Leukocyte Esterase Small (1+) H Urine RBC Urine WBC Urine WBC Clumps Ur Squamous Epith Cells Urine Bacteria Hyaline Casts Granular Casts Urine Yeast 04/24/23 04/24/23 04/24/23 Unknown Unknown Unknown WBC RBC Hgb Hct MCV MCH MCHC RDW Plt Count MPV Immature Gran % (Auto) Neut % (Auto) Lymph % (Auto) Walsh % (Auto) Eos % (Auto) Baso % (Auto) Lymph # (Auto) Walsh # (Auto) Eos # (Auto) Baso # (Auto) Abs Immat Gran (auto) Absolute Neuts (auto) Absolute Nucleated RBC Nucleated RBC % (auto) Neutrophils % (Manual) Band Neutrophils % Lymphocytes % (Manual) Monocytes % (Manual) Abs Neuts (Manual) Lymphocytes # (Manual) Monocytes # (Manual) Toxic Vacuolation Platelet Estimate Plt Morphology Comment RBC Morphology Sodium Potassium Chloride Carbon Dioxide Anion Gap BUN Creatinine Estim Creat Clear Calc Estimated GFR POC Glucose Random Glucose Fasting Glucose Calcium Total Bilirubin AST ALT Alkaline Phosphatase Total Protein Albumin Urine Color Urine Appearance Urine pH Ur Specific Mcgill Urine Protein Urine Glucose (UA) Urine Ketones Urine Blood Urine Nitrite Ur Leukocyte Esterase Moderate (2+) H Urine RBC >20 H >20 H Urine WBC >50 H >50 H Urine WBC Clumps Present Ur Squamous Epith Cells 0-2 Urine Bacteria Hyaline Casts Granular Casts Urine Yeast 04/24/23 04/24/23 04/24/23 Unknown Unknown Unknown WBC RBC Hgb Hct MCV MCH MCHC RDW Plt Count MPV Immature Gran % (Auto) Neut % (Auto) Lymph % (Auto) Walsh % (Auto) Eos % (Auto) Baso % (Auto) Lymph # (Auto) Walsh # (Auto) Eos # (Auto) Baso # (Auto) Abs Immat Gran (auto) Absolute Neuts (auto) Absolute Nucleated RBC Nucleated RBC % (auto) Neutrophils % (Manual) Band Neutrophils % Lymphocytes % (Manual) Monocytes % (Manual) Abs Neuts (Manual) Lymphocytes # (Manual) Monocytes # (Manual) Toxic Vacuolation Platelet Estimate Plt Morphology Comment RBC Morphology Sodium Potassium Chloride Carbon Dioxide Anion Gap BUN Creatinine Estim Creat Clear Calc Estimated GFR POC Glucose Random Glucose Fasting Glucose Calcium Total Bilirubin AST ALT Alkaline Phosphatase Total Protein Albumin Urine Color Urine Appearance Urine pH Ur Specific Mcgill Urine Protein Urine Glucose (UA) Urine Ketones Urine Blood Urine Nitrite Ur Leukocyte Esterase Urine RBC Urine WBC Urine WBC Clumps Ur Squamous Epith Cells 3-5 Urine Bacteria 1+ 4+ Hyaline Casts 11-20 0-2 Granular Casts Present Urine Yeast Present 04/25/23 04/25/23 04/25/23 05:47 07:11 11:14 WBC 4.7 L RBC 3.20 L Hgb 10.1 L Hct 30.7 L MCV 95.9 MCH 31.6 MCHC 32.9 RDW 12.6 Plt Count 268 D MPV 11.1 Immature Gran % (Auto) 0.2 Neut % (Auto) 74.8 H Lymph % (Auto) 13.5 L Walsh % (Auto) 10.9 Eos % (Auto) 0.4 Baso % (Auto) 0.2 Lymph # (Auto) 0.6 L Walsh # (Auto) 0.5 Eos # (Auto) 0.0 Baso # (Auto) 0.0 Abs Immat Gran (auto) 0.01 Absolute Neuts (auto) 3.5 Absolute Nucleated RBC 0.000 Nucleated RBC % (auto) 0.0 Neutrophils % (Manual) Band Neutrophils % Lymphocytes % (Manual) Monocytes % (Manual) Abs Neuts (Manual) Lymphocytes # (Manual) Monocytes # (Manual) Toxic Vacuolation Platelet Estimate Plt Morphology Comment RBC Morphology Sodium 137 Potassium 4.2 Chloride 99 Carbon Dioxide 28 Anion Gap 14 BUN 25 H Creatinine 0.69 Estim Creat Clear Calc 61.8 Estimated GFR > 60 POC Glucose 129 H 157 H Random Glucose Fasting Glucose 130 H Calcium 9.5 Total Bilirubin 3.6 H AST 50 H ALT 52 H Alkaline Phosphatase 333 H Total Protein 5.7 L Albumin 2.9 L Urine Color Urine Appearance Urine pH Ur Specific Mcgill Urine Protein Urine Glucose (UA) Urine Ketones Urine Blood Urine Nitrite Ur Leukocyte Esterase Urine RBC Urine WBC Urine WBC Clumps Ur Squamous Epith Cells Urine Bacteria Hyaline Casts Granular Casts Urine Yeast Airway Mallampati Class: II TM Dist: >3cm Neck ROM: Full Partial: Upper and Lower Heart: RRR Lungs: CTAB Assessment and Plan Assessment Anesthesia Assessment: Anesthesia Plan Discussed and Chart Reviewed Final Anesthetic Review Family History of Problems with Anesthesia: No History of Problems with Anesthesia: No NPO: Yes ASA Class: III and Emergency Final Preanesthetic Review: No Changes in Pt Med Stat, Meds/Allgs Chart Reviewed, Consent Obtained/Reviewed, Anes Risks/Benef Reviewed and DNR Form (If Appl.) Patient Risk: Intermediate Procedure Risk: Low Assessment/Block/Sedation in SS: Assess/Block/Sedation- Anesthetic Plan Anesthetic Plan: GA Disposition: Standard PACU and Inp. Admit - Standard Bed
[2023-04-25 16:17] LABS: Glucose, Whole Blood 90 mg/dL (60-115)
--- NOTE | 2023-04-25 16:19 | HO.PM.IMPN ---
Subjective Subjective Date of Service: 04/25/23 Interval History: Some improvement with volume overnight. No acute issues Review of Systems Denies chest pain Denies shortness of breath Denies nausea vomiting diarrhea Denies fever chills Physical Exam Vital Signs: Vital Signs: Last Vital Signs Temp 96.9 F 04/25/23 07:27 Pulse 88 04/25/23 07:27 Resp 16 04/25/23 07:27 BP 118/60 04/25/23 07:27 Pulse Ox 98 04/25/23 07:27 O2 Del Method Room Air 04/25/23 07:27 BMI result Body Mass Index 19.4 Const: Other: Ill-appearing female resting comfortably in bed Resp: Other: Clear to auscultation bilaterally no rales rhonchi or wheezes Cardio: Other: No S4; positive S1-S2; no S3 murmurs rubs or gallops GI: Other: Soft nontender nondistended normoactive bowel sounds Back/Spine/Pelvis: Other: Bilateral percutaneous nephrostomy tubes Extrem: Other: No edema bilaterally Objective Data Active Medications Acetaminophen (Acetaminophen 325 Mg Tablet) 650 mg PO Q6H PRN PRN Reason: Pain, Mild (Pain Scale 1-3) Dextrose (Dextrose 50 % 25 Gm/50 Ml Syringe) 25 gm IVPUSH Q15M PRN; Protocol PRN Reason: per Hypoglycemia Standing Ord. Enoxaparin Sodium (Enoxaparin Sodium 40 Mg/0.4 Ml Syringe) 40 mg SUBCUT Q24H [facility] Last Admin: 04/24/23 17:33 Dose: 40 mg Documented By: [facility] Glucose (Glucose Gel 15 Gm Gel..Gram.) 15 gm PO Q15M PRN; Protocol PRN Reason: per Hypoglycemia Standing Ord. Lactated Ringer's (Lr) 1,000 mls @ 100 mls/hr IVCONT .Q10H [facility] Last Admin: 04/25/23 12:37 Dose: 100 mls/hr Documented By: TAMMY Ceftriaxone Sodium 1 gm/ (Sodium Chloride) 50 mls @ 100 mls/hr IV Q24H [facility] Insulin Human Lispro (Insulin Lispro 100 Unit/Ml 3 Ml Vial) 0 unit SUBCUT QIDACHS [facility]; Protocol Last Admin: 04/25/23 11:41 Dose: 2 unit Documented By: TAMMY Morphine Sulfate (Morphine Sulfate 4 Mg/Ml Cartridge) 4 mg IVPUSH Q4H PRN; Protocol PRN Reason: Pain, Severe (Pain Scale 7-10) Last Admin: 04/25/23 13:51 Dose: 4 mg Documented By: TAMMY Ondansetron HCl (Ondansetron Hcl 4 Mg/2 Ml Vial) 4 mg IVPUSH Q8H PRN PRN Reason: Nausea and Vomiting Oxycodone HCl (Oxycodone Hcl Immed Release 5 Mg Tablet) 5 mg PO Q4H PRN PRN Reason: Pain, Moderate(Pain Scale 4-6) Last Admin: 04/25/23 09:23 Dose: 5 mg Documented By: TAMMY Sodium Chloride (0.9 % Sodium Chloride Flush 3 Ml Syringe) 3 ml IVFLUSH [facility] Last Admin: 04/25/23 15:29 Dose: 3 ml Documented By: CHELITA Labs 04/25/23 05:47 04/25/23 05:47 Labs: Laboratory Results - last 24 hr 04/24/23 04/24/23 04/25/23 18:12 20:14 05:47 MCV 95.9 MCH 31.6 MCHC 32.9 RDW 12.6 Plt Count 268 D MPV 11.1 Immature Gran % (Auto) 0.2 Neut % (Auto) 74.8 H Lymph % (Auto) 13.5 L [place] % (Auto) 10.9 Eos % (Auto) 0.4 Baso % (Auto) 0.2 Lymph # (Auto) 0.6 L [place] # (Auto) 0.5 Eos # (Auto) 0.0 Baso # (Auto) 0.0 Abs Immat Gran (auto) 0.01 Absolute Neuts (auto) 3.5 Absolute Nucleated RBC 0.000 Nucleated RBC % (auto) 0.0 Anion Gap 14 Estim Creat Clear Calc 61.8 Estimated GFR > 60 POC Glucose 163 H 166 H Fasting Glucose 130 H Calcium 9.5 Total Bilirubin 3.6 H AST 50 H ALT 52 H Alkaline Phosphatase 333 H Total Protein 5.7 L Albumin 2.9 L 04/25/23 04/25/23 04/25/23 07:11 11:14 16:13 MCV MCH MCHC RDW Plt Count MPV Immature Gran % (Auto) Neut % (Auto) Lymph % (Auto) [place] % (Auto) Eos % (Auto) Baso % (Auto) Lymph # (Auto) [place] # (Auto) Eos # (Auto) Baso # (Auto) Abs Immat Gran (auto) Absolute Neuts (auto) Absolute Nucleated RBC Nucleated RBC % (auto) Anion Gap Estim Creat Clear Calc Estimated GFR POC Glucose 129 H 157 H 90 Fasting Glucose Calcium Total Bilirubin AST ALT Alkaline Phosphatase Total Protein Albumin Microbiology Microbiology Results: Microbiology 04/24/23 Unknown Urine Culture - Preliminary Urine Catheterized - Simeon Catheter Enterococcus/Streptococcus sp Assessment and Plan (1) Gastric cancer: Status: Acute (2) Hydronephrosis: Status: Acute Plan 67-year-old female with history of metastatic gastric adenocarcinoma s/p total gastrectomy w/ Melyssa en Y reconstruction, HTN, T2DM presenting to the ED from Dr. Cisneros's office for concern of difficulty managing nephrostomy tubes. also describes decline over the last several weeks with essentially no p.o. intake over the last week. 1. Metastatic gastric adenocarcinoma -improved with volume -volume repletion with lactated Ringer's -nutritional consult in a.m. 2. Dehydration (backdrop of newly placed bilateral nephrostomy tubes) -volume repletion as above -urology consult regarding nephrostomy tubes... For stents in a.m. -follow renals/divalents 3.HTN -acceptable control. . . Poor p.o. intake -hold oral agents -restart when clinically appropriate 4. Diabetes type 2 -acceptable control off therapies -lispro correctional scale -Adjust as indicated DNR/DNI Lovenox Requires ongoing hospitalization for specialist care relating to stenting and removal of urostomy tubes Quality Stroke Does the patient have a stroke diagnosis?: No VTE Prior VTE?: No VTE Risk Level:: Medical - moderate - high VTE Device Contraindication: Treatment Not Indicated VTE Drug Contraindication: N/A - Med Ordered
--- NOTE | 2023-04-25 16:42 | MHC.SHP ---
Pre-Procedural Eval Section A Date of Service: 04/25/23 The patient is an INPATIENT: Yes Changes since office visit: No Cold of Flu in the past 2 weeks, No New Medical Problems, No Changes in Medication and No Patient answered all questions The History & Physical has been completed within 30 days and I have reviewed it.: Yes Section B Chief Complaint: Dehydration BILARY STENT PLACEMENT Details of Present Illness: Bilateral ureteric stent internalization Allergies: Allergies Allergy/AdvReac Type Severity Reaction Status Date / Time meperidine [From Demerol] Allergy Severe Swelling Verified 04/13/23 09:20 Plan I have reviewed the history and physical and performed a pertinent physical examination on my patient. No changes have occurred unless specified. Time Spent With Patient Time: Total time managing care of this patient today ____ minutes.
--- NOTE | 2023-04-25 17:50 | W.PM.OPN ---
Operative Note Operative Note Date of Service: 04/25/23 Narrative: PreOperative Diagnosis: Bilateral hydronephrosis with indwelling PCN bilateral Post Operative Diagnosis: Bilateral hydronephrosis Procedure: Cystoscopy, bilateral retrograde, bilateral stent change, bilateral PCN removal - modifier 22 for difficulty finding the right ureteric orifice which took approximately 20 minutes this is 10 times longer than typical. Surgeon: Dr Shukri Manzo Anesthesia: LMA Indications for procedure: Bilateral PCN placed for bilateral hydronephrosis in setting of metastatic disease. Procedure: After informed consent was verified the patient was brought to the operating room and placed in a supine position. Anesthesia was administered per protocol. The patient was placed in modified dorsal lithotomy position and prepped and draped in a sterile fashion. A safety pause time-out was performed. Laterality of procedure and antibiotics were confirmed, appropriate imaging was available A 22 Colombian cystoscope was introduced per urethra. No abnormality was noted of urethra or bladder. Left ureteric orifice visible. Right ureteric orifice difficult to discern against background of inflammation across that side of the bladder. The left ureter was cannulated with an open ended catheter and a retrograde examination was performed. Hydronephrosis seen with left PCN in place. . A Sensor guidewire was placed under fluoroscopy and a good coil was seen within the renal pelvis. A 7 Colombian by 24 cm double J stent was advanced over the wire and up to the level of the renal pelvis under fluoroscopic and direct visualization. The stent was seen with appropriate coil within the renal pelvis and in the bladder after deployment. The right ureter was difficult to discern. There was inflammation around. Using an angled Glidewire with an Alberannz bridge with 70 degree lens the area of the trigone was examined. No clear opening was seen. Starting toward the midline an attempt was made to place the angled Glidewire along various grooves of the inflamed right ureteric orifice area. After 10 minutes of attempting we were fortunate that the angled Glidewire is slid into a small opening. We were then able to place the open-ended catheter. Retrograde examination was performed. Hydronephrosis was seen as was the left PCN A Sensor guidewire was placed under fluoroscopy and a good coil was seen within the renal pelvis. A 7 Colombian by 24 cm double J stent was advanced over the wire and up to the level of the renal pelvis under fluoroscopic and direct visualization. The stent was seen with appropriate coil within the renal pelvis and in the bladder after deployment. Sixteen Colombian Simeon catheter was placed to drain the bladder. Both PCN drains were removed under fluoroscopy to ensure they did not interact with the double-J stents that had been placed from below. The patient tolerated the procedure well and was transferred in a stable condition to the recovery area. Pathology: Bilateral hydronephrosis secondary to metastatic disease Drains: Bilateral PCN, Simeon catheter
[2023-04-25] MEDS: cefTRIAXone sodium 1 GM in 0.9 % Sodium Chloride 50 ML IV (18:43)
[2023-04-25 20:51] LABS: Glucose, Whole Blood 95 mg/dL (60-115)
[2023-04-26] MEDS: Morphine Sulfate 4 MG/ML CARTRIDGE IVPUSH ×2 (01:09→09:21)
[2023-04-26] MEDS: Lactated Ringers 1,000 ML 100 ML IVCONT ×2 (01:12→11:04)
[2023-04-26 03:46] VITALS: BP 111/60; PULSE 97; RESP 14; TEMP 35.9; O2SAT 97
[2023-04-26] MEDS: oxyCODONE HCl Immed Release 5 MG TABLET PO ×4 (04:05→19:36)
[2023-04-26 06:31] LABS: MANUAL DIFF FLAG NO
[2023-04-26 06:36] LABS: Basophils Percent Auto 0.2 % (0-2); Eosinophils Percent Auto 0.3 % (0-4); Hematocrit 31.8 % (37.0-47.0); Hemoglobin 10.5 g/dl (12.0-16.0); Imm Gran Abs Auto 0.02 X10*3/uL (0.00-0.03); Imm Gran Pct Auto 0.3 % (0.0-0.4); Lymphocytes Absolute Auto 0.8 X10*3/uL (1.2-4.9); Lymphocytes Percent Auto 12.7 % (20-40); Mean Corpuscular Hemoglobin 31.8 pg (27.0-33.0); Mean Corpuscular Volume 96.4 fL (80.0-98.0); Mean Platelet Volume 10.8 fL (9.4-12.3); Monocytes Absolute Auto 0.6 X10*3/uL (0.1-1.2); Monocytes Percent Auto 9.3 % (2-11); Neutrophils Absolute Auto 4.9 x10*3/uL (2.0-8.3); Neutrophils Percent Auto 77.2 % (45-73); Platelet Count 270 X10*3/uL (160-400); Red Cell Distribution Width 12.5 % (11.0-16.0); White Blood Count 6.3 X10*3/uL (4.8-10.8)
[2023-04-26 06:56] LABS: INTERNATIONAL NORM RATIO 1.3 (0.9-1.1); Prothrombin Time 16.4 SEC (11.1-13.3)
[2023-04-26 06:57] LABS: Alanine Aminotransferase 46 U/L (0-31); Albumin Level 2.9 g/dL (3.5-5.0); Alkaline Phosphatase 315 U/L (39-117); Anion Gap 14 (12-20); Aspartate Amino Transferase 56 U/L (5-31); Bilirubin Total 3.4 mg/dL (0.0-1.0); Blood Urea Nitrogen 19 mg/dL (9-16); Calcium 9.4 mg/dL (8.4-10.2); Carbon Dioxide 27 mmol/L (22-29); Chloride 100 mmol/L (96-108); Creatinine Clr Calc Pharmacy 64.3; Estimated Glomerular Filt Rate > 60; Glucose Fasting 102 mg/dL (60-99); Potassium 4.3 mmol/L (3.3-5.1); Sodium 137 mmol/L (135-145); Total Protein 5.6 g/dL (6.5-8.0)
[2023-04-26 07:02] VITALS: BP 103/58; PULSE 95; RESP 16; TEMP 36.7; O2SAT 97
[2023-04-26 07:09] LABS: Glucose, Whole Blood 101 mg/dL (60-115)
--- NOTE | 2023-04-26 10:40 | HO.POSTANES ---
Post Anesthesia Evaluation Post Anesthesia Evaluation Date of Service: 04/26/23 Vital Signs: Vital Signs Temp Pulse Resp BP Pulse Ox O2 Del Method 04/26/23 07:02 98.1 F 95 16 103/58 L 97 Room Air 04/26/23 03:46 96.7 F L 97 14 111/60 97 Room Air Anesthesia: General Mental Status: Awake Pain Control: Satisfactory Nausea/Vomiting: None Hydration: Adequate Anesthesia-Related Issues: No Anes. Related Issues
[2023-04-26 10:58] LABS: Glucose, Whole Blood 119 mg/dL (60-115)
--- NOTE | 2023-04-26 11:17 | MHC.CLN ---
Addendum entered by Ana Chen, RD 04/26/23 13:48: NUTRITION CONSULT FOR METASTATIC CANCER WITH POOR APPETITE. PATIENT FOLLOWS VEGAN DIET. NO PLANT BASED SUPPLEMENTS AVAILABLE. ABLE TO SELECT OWN FOODS. ENCOURAGE PO INTAKE ABLE. Original Note: F/U DIET RX: REGULAR-APPROPRIATE. PT FOLLOWS VEGAN DIET. RECENT HX POOR INTAKE. MONITOR PO INTAKE CLOSELY AND ENCOURAGE PO ABLE.
--- NOTE | 2023-04-26 12:40 | MHC.CM.PN ---
EMR REVIEWED. PER MD ROUNDS PT NOT MEDICALLY CLEARED FOR DC AT THIS TIME. CM WILL CONTINUE TO FOLLOW.
--- NOTE | 2023-04-26 13:23 | P.PNIM_ITS ---
Subjective Subjective Date of Service: 04/26/23 Interval History: Overall improved with IV fluids. Percutaneous tubes removed yesterday; stents placed by Dr. Manzo. Overall feels much better Review of Systems Denies chest pain Denies shortness of breath Denies nausea vomiting diarrhea Denies fever chills Physical Exam 2 Vital Signs: Vital Signs: Last Vital Signs Temp 98.1 F 04/26/23 07:02 Pulse 95 04/26/23 07:02 Resp 16 04/26/23 07:02 BP 103/58 L 04/26/23 07:02 Pulse Ox 97 04/26/23 07:02 O2 Del Method Room Air 04/26/23 07:02 BMI result Body Mass Index 19.4 Const: Other: Ill-appearing female resting comfortably in bed Resp: Other: Clear to auscultation bilaterally no rales rhonchi or wheezes Cardio: Other: No S4; positive S1-S2; no S3 murmurs rubs or gallops GI: Other: Soft nontender nondistended normoactive bowel sounds Back/Spine/Pelvis: Other: Bilateral percutaneous nephrostomy tubes Extrem: Other: No edema bilaterally Objective Data Active Medications Acetaminophen (Acetaminophen 325 Mg Tablet) 650 mg PO Q6H PRN PRN Reason: Pain, Mild (Pain Scale 1-3) Dextrose (Dextrose 50 % 25 Gm/50 Ml Syringe) 25 gm IVPUSH Q15M PRN; Protocol PRN Reason: per Hypoglycemia Standing Ord. Enoxaparin Sodium (Enoxaparin Sodium 40 Mg/0.4 Ml Syringe) 40 mg SUBCUT Q24H [facility] Last Admin: 04/25/23 18:11 Dose: Not Given Documented By: CHELITA Non-Admin Reason: Off Unit: Surgery Fentanyl (Fentanyl Citrate/Pf 100 Mcg/2 Ml Vial) 12.5 mcg IVPUSH Q5M PRN; Protocol PRN Reason: Pain, Moderate(Pain Scale 4-6) Glucose (Glucose Gel 15 Gm Gel..Gram.) 15 gm PO Q15M PRN; Protocol PRN Reason: per Hypoglycemia Standing Ord. Lactated Ringer's (Lr) 1,000 mls @ 100 mls/hr IVCONT .Q10H [facility] Last Admin: 04/26/23 11:04 Dose: 100 mls/hr Documented By: CELIA Ceftriaxone Sodium 1 gm/ (Sodium Chloride) 50 mls @ 100 mls/hr IV Q24H [facility] Last Infusion: 04/25/23 19:53 Dose: Infused Documented By: HAYDER Acetaminophen (irmev) 1,000 mg in 100 mls @ 400 mls/hr IV ONCE PRN PRN Reason: Pain, Moderate(Pain Scale 4-6) Insulin Human Lispro (Insulin Lispro 100 Unit/Ml 3 Ml Vial) 0 unit SUBCUT QIDACHS [facility]; Protocol Last Admin: 04/26/23 11:07 Dose: Not Given Documented By: CELIA Non-Admin Reason: No Insulin Coverage Morphine Sulfate (Morphine Sulfate 4 Mg/Ml Cartridge) 4 mg IVPUSH Q4H PRN; Protocol PRN Reason: Pain, Severe (Pain Scale 7-10) Last Admin: 04/26/23 09:21 Dose: 4 mg Documented By: CELIA Ondansetron HCl (Ondansetron Hcl 4 Mg/2 Ml Vial) 4 mg IVPUSH Q8H PRN PRN Reason: Nausea and Vomiting Ondansetron HCl (Ondansetron Hcl 4 Mg/2 Ml Vial) 4 mg IVPUSH ONCE PRN PRN Reason: Nausea and Vomiting Oxycodone HCl (Oxycodone Hcl Immed Release 5 Mg Tablet) 5 mg PO Q4H PRN PRN Reason: Pain, Moderate(Pain Scale 4-6) Last Admin: 04/26/23 04:05 Dose: 5 mg Documented By: IDALIA Oxycodone HCl (Oxycodone Hcl Immed Release 5 Mg Tablet) 5 mg PO ONCE PRN PRN Reason: Pain, Severe (Pain Scale 7-10) Sodium Chloride (0.9 % Sodium Chloride Flush 3 Ml Syringe) [facility] Last Admin: 04/26/23 09:12 Dose: Not Given Documented By: CELIA Non-Admin Reason: IV Running Labs 04/26/23 06:22 04/26/23 06:22 Labs: Laboratory Results - last 24 hr 04/25/23 04/25/23 04/26/23 16:13 20:42 06:22 MCV 96.4 MCH 31.8 MCHC 33.0 RDW 12.5 Plt Count 270 MPV 10.8 Immature Gran % (Auto) 0.3 Neut % (Auto) 77.2 H Lymph % (Auto) 12.7 L [place] % (Auto) 9.3 Eos % (Auto) 0.3 Baso % (Auto) 0.2 Lymph # (Auto) 0.8 L [place] # (Auto) 0.6 Eos # (Auto) 0.0 Baso # (Auto) 0.0 Abs Immat Gran (auto) 0.02 Absolute Neuts (auto) 4.9 Absolute Nucleated RBC 0.000 Nucleated RBC % (auto) 0.0 PT 16.4 H D INR 1.3 H Anion Gap 14 Estim Creat Clear Calc 64.3 Estimated GFR > 60 POC Glucose 90 95 Fasting Glucose 102 H Calcium 9.4 Total Bilirubin 3.4 H AST 56 H ALT 46 H Alkaline Phosphatase 315 H Total Protein 5.6 L Albumin 2.9 L 04/26/23 04/26/23 07:05 10:53 MCV MCH MCHC RDW Plt Count MPV Immature Gran % (Auto) Neut % (Auto) Lymph % (Auto) [place] % (Auto) Eos % (Auto) Baso % (Auto) Lymph # (Auto) [place] # (Auto) Eos # (Auto) Baso # (Auto) Abs Immat Gran (auto) Absolute Neuts (auto) Absolute Nucleated RBC Nucleated RBC % (auto) PT INR Anion Gap Estim Creat Clear Calc Estimated GFR POC Glucose 101 119 H Fasting Glucose Calcium Total Bilirubin AST ALT Alkaline Phosphatase Total Protein Albumin Microbiology Microbiology Results: Microbiology 04/24/23 Unknown Urine Culture - Final Urine Catheterized - Simeon Catheter Enterococcus faecalis 04/24/23 17:21 Blood Culture - Preliminary Blood - Venous No growth after 24 hours. 04/24/23 17:13 Blood Culture - Preliminary Blood - Venous No growth after 24 hours. Assessment and Plan (1) Gastric cancer: Status: Acute (2) Hydronephrosis: Status: Acute Plan 67-year-old female with history of metastatic gastric adenocarcinoma s/p total gastrectomy w/ Melyssa en Y reconstruction, HTN, T2DM presenting to the ED from Dr. Cisneros's office for concern of difficulty managing nephrostomy tubes. also describes decline over the last several weeks with essentially no p.o. intake over the last week. 1. Metastatic gastric adenocarcinoma -improved with volume -volume repletion with lactated Ringer's -nutritional consult in a.m. -IR to internalize bile drain today 2. Dehydration (backdrop of newly placed bilateral nephrostomy tubes) -volume repletion as above -urology placed stents 04/25/2023 with improvement in patient's pain -follow renals/divalents 3.HTN -acceptable control. . . Poor p.o. intake -hold oral agents -restart when clinically appropriate 4. Diabetes type 2 -acceptable control off therapies -lispro correctional scale -Adjust as indicated DNR/DNI Refugiox Requires ongoing hospitalization for specialist care relating to stenting and removal of urostomy tubes Quality Stroke Does the patient have a stroke diagnosis?: No VTE Prior VTE?: No VTE Risk Level:: Medical - moderate - high VTE Device Contraindication: Treatment Not Indicated VTE Drug Contraindication: N/A - Med Ordered
--- NOTE | 2023-04-26 14:34 | P.CDIM_ITS ---
PROVIDER RESPONSE TEXT: To clarify, the appropriate diagnosis supported by the clinical indicators: (_UTI remains a known or suspected condition: Based on active sediment in the urine QUERY TEXT: PHYSICIAN'S DOCUMENTATION REQUEST Date of Query: 04/26/2023 08:08 AM EST Patient Name: Sheryl Espinoza Admit Date: 04/24/2023 Dear Mamadou Mayo, A review of the medical record indicates additional documentation may be needed. Please review below and update the documentation accordingly. The purpose of this query is for consistency of a documented medical diagnosis within the medical rec ord: Clinical Indicators: Ed: Clinical impression: Urinary tract infection Leukocyte 2+ Blood 3+ Bacteria positive Urine RBC >20 H Urine WBC >50 H IV Ceftriaxone Patient is dehydrated, loss of appetite and nausea and vomiting. Please clarify the documentation of (include the diagnosis): (_UTI remains a known or suspected condition possible, probable, suspected etc. UTI has been ruled out Other (explain) Clinically unable to determine (explain) Thank you, Raysa Bush, CCS, CDIS Use of terms such as suspected, likely, concern for, or probable (associated with a specific diagnosi s that is being evaluated, monitored, or treated as if it exists) are acceptable and can be coded in the inpatient se tting, when documented at the time of discharge. Please use your independent medical judgment in providing your response. THIS QUERY IS PART OF THE PERMANENT MEDICAL RECORD
[2023-04-26 15:12] VITALS: BP 111/59; PULSE 92; RESP 18; TEMP 36.2; O2SAT 98
[2023-04-26 16:17] LABS: Glucose, Whole Blood 134 mg/dL (60-115)
[2023-04-26 19:18] VITALS: BP 111/64; PULSE 100; RESP 16; TEMP 36.2; O2SAT 98
[2023-04-26] MEDS: cefTRIAXone sodium 1 GM in 0.9 % Sodium Chloride 50 ML IV (19:35)
[2023-04-26 20:00] LABS: Glucose, Whole Blood 152 mg/dL (60-115)
[2023-04-26] MEDS: 0.9 % Sodium Chloride Flush 3 ML SYRINGE IVFLUSH (23:47)
[2023-04-27] VITALS (11 sets, daily range): BP systolic 103–136; BP diastolic 59–76; PULSE 94–117; RESP 16–18; TEMP 35.6–36.8; O2SAT 96–98
[2023-04-27] MEDS: Morphine Sulfate 4 MG/ML CARTRIDGE IVPUSH ×4 (00:28→19:36)
[2023-04-27] MEDS: oxyCODONE HCl Immed Release 5 MG TABLET PO ×2 (03:36→23:40)
[2023-04-27 06:20] LABS: MANUAL DIFF FLAG NO
[2023-04-27 06:27] LABS: Basophils Percent Auto 0.2 % (0-2); Eosinophils Percent Auto 0.9 % (0-4); Hemoglobin 10.4 g/dl (12.0-16.0); Imm Gran Abs Auto 0.02 X10*3/uL (0.00-0.03); Imm Gran Pct Auto 0.4 % (0.0-0.4); Lymphocytes Absolute Auto 0.7 X10*3/uL (1.2-4.9); Mean Corpuscular HGB Conc 33.5 g/dl (31.0-35.0); Mean Corpuscular Hemoglobin 31.6 pg (27.0-33.0); Mean Corpuscular Volume 94.2 fL (80.0-98.0); Mean Platelet Volume 10.7 fL (9.4-12.3); Monocytes Absolute Auto 0.4 X10*3/uL (0.1-1.2); Monocytes Percent Auto 8.6 % (2-11); Neutrophils Absolute Auto 3.5 x10*3/uL (2.0-8.3); Neutrophils Percent Auto 75.9 % (45-73); Platelet Count 262 X10*3/uL (160-400); Red Blood Count 3.29 X10*6/uL (4.20-5.50); Red Cell Distribution Width 12.6 % (11.0-16.0); White Blood Count 4.7 X10*3/uL (4.8-10.8)
[2023-04-27 06:52] LABS: Alanine Aminotransferase 37 U/L (0-31); Albumin Level 2.8 g/dL (3.5-5.0); Alkaline Phosphatase 284 U/L (39-117); Anion Gap 13 (12-20); Aspartate Amino Transferase 51 U/L (5-31); Bilirubin Total 3.1 mg/dL (0.0-1.0); Blood Urea Nitrogen 15 mg/dL (9-16); Calcium 9.2 mg/dL (8.4-10.2); Carbon Dioxide 28 mmol/L (22-29); Chloride 99 mmol/L (96-108); Creatinine Clr Calc Pharmacy 68.2; Estimated Glomerular Filt Rate > 60; Glucose Fasting 112 mg/dL (60-99); Sodium 136 mmol/L (135-145); Total Protein 5.3 g/dL (6.5-8.0)
[2023-04-27 07:45] LABS: Glucose, Whole Blood 107 mg/dL (60-115)
[2023-04-27] MEDS: 0.9 % Sodium Chloride Flush 3 ML SYRINGE IVFLUSH ×2 (09:36→15:48)
[2023-04-27 10:49] LABS: Glucose, Whole Blood 100 mg/dL (60-115)
--- NOTE | 2023-04-27 11:02 | HO.PM.IMPN ---
Subjective Subjective Date of Service: 04/27/23 Interval History: c/o RUQ pain, lightheadedness no N/V no fever NPO for biliary stent internalization Review of Systems Review of Systems: Yes all other systems are reviewed and are negative Physical Exam Vital Signs: Vital Signs: Last Vital Signs Temp 98.3 F 04/27/23 07:17 Pulse 104 H 04/27/23 07:17 Resp 16 04/27/23 07:17 BP 103/64 04/27/23 07:17 Pulse Ox 97 04/27/23 07:17 O2 Del Method Room Air 04/27/23 07:17 BMI result Body Mass Index 19.4 Gen: in no acute distress HEENT: icetric sclera, moist mucus membranes Neck: supple Lungs: clear to auscultation bilaterally Heart: regular rate and rhythm, no murmurs Abd: soft, RUQ tender with biliary drain, Simeon with blood-tinged urine Ext: no edema Skin: warm/well-perfused Neuro: alert and oriented x3, no focal findings Psych: appropriate affect Objective Data Active Medications Acetaminophen (Acetaminophen 325 Mg Tablet) 650 mg PO Q6H PRN PRN Reason: Pain, Mild (Pain Scale 1-3) Dextrose (Dextrose 50 % 25 Gm/50 Ml Syringe) 25 gm IVPUSH Q15M PRN; Protocol PRN Reason: per Hypoglycemia Standing Ord. Enoxaparin Sodium (Enoxaparin Sodium 40 Mg/0.4 Ml Syringe) 40 mg SUBCUT Q24H [facility] Last Admin: 04/26/23 15:45 Dose: Not Given Documented By: ALBERTO Non-Admin Reason: Patient Refused Fentanyl (Fentanyl Citrate/Pf 100 Mcg/2 Ml Vial) 12.5 mcg IVPUSH Q5M PRN; Protocol PRN Reason: Pain, Moderate(Pain Scale 4-6) Glucose (Glucose Gel 15 Gm Gel..Gram.) 15 gm PO Q15M PRN; Protocol PRN Reason: per Hypoglycemia Standing Ord. Ceftriaxone Sodium 1 gm/ (Sodium Chloride) 50 mls @ 100 mls/hr IV Q24H [facility] Last Infusion: 04/26/23 20:17 Dose: Infused Documented By: ALBERTO Acetaminophen (Ofirmev) 1,000 mg in 100 mls @ 400 mls/hr IV ONCE PRN PRN Reason: Pain, Moderate(Pain Scale 4-6) Dextrose/Lactated Ringer's (D5lr) 1,000 mls @ 80 mls/hr IVCONT .[id number] [facility] Insulin Human Lispro (Insulin Lispro 100 Unit/Ml 3 Ml Vial) 0 unit SUBCUT QIDACHS [facility]; Protocol Last Admin: 04/27/23 08:18 Dose: Not Given Documented By: MARY Non-Admin Reason: No Insulin Coverage Morphine Sulfate (Morphine Sulfate 4 Mg/Ml Cartridge) 4 mg IVPUSH Q4H PRN; Protocol PRN Reason: Pain, Severe (Pain Scale 7-10) Last Admin: 04/27/23 09:35 Dose: 4 mg Documented By: MARY Ondansetron HCl (Ondansetron Hcl 4 Mg/2 Ml Vial) 4 mg IVPUSH Q8H PRN PRN Reason: Nausea and Vomiting Ondansetron HCl (Ondansetron Hcl 4 Mg/2 Ml Vial) 4 mg IVPUSH ONCE PRN PRN Reason: Nausea and Vomiting Oxycodone HCl (Oxycodone Hcl Immed Release 5 Mg Tablet) 5 mg PO Q4H PRN PRN Reason: Pain, Moderate(Pain Scale 4-6) Last Admin: 04/27/23 03:36 Dose: 5 mg Documented By: CASTILVirgilio Sodium Chloride (0.9 % Sodium Chloride Flush 3 Ml Syringe) 3 ml IVFLUSH [facility] Last Admin: 04/27/23 09:36 Dose: 3 ml Documented By: MARY Labs 04/27/23 05:45 04/27/23 05:45 Labs: Laboratory Results - last 24 hr 04/26/23 04/26/23 04/27/23 16:12 19:39 05:45 MCV 94.2 MCH 31.6 MCHC 33.5 RDW 12.6 Plt Count 262 MPV 10.7 Immature Gran % (Auto) 0.4 Neut % (Auto) 75.9 H Lymph % (Auto) 14.0 L [place] % (Auto) 8.6 Eos % (Auto) 0.9 Baso % (Auto) 0.2 Lymph # (Auto) 0.7 L [place] # (Auto) 0.4 Eos # (Auto) 0.0 Baso # (Auto) 0.0 Abs Immat Gran (auto) 0.02 Absolute Neuts (auto) 3.5 Absolute Nucleated RBC 0.000 Nucleated RBC % (auto) 0.0 Anion Gap 13 Estim Creat Clear Calc 68.2 Estimated GFR > 60 POC Glucose 134 H 152 H Fasting Glucose 112 H Calcium 9.2 Total Bilirubin 3.1 H AST 51 H ALT 37 H Alkaline Phosphatase 284 H Total Protein 5.3 L Albumin 2.8 L 04/27/23 04/27/23 07:41 10:45 MCV MCH MCHC RDW Plt Count MPV Immature Gran % (Auto) Neut % (Auto) Lymph % (Auto) [place] % (Auto) Eos % (Auto) Baso % (Auto) Lymph # (Auto) [place] # (Auto) Eos # (Auto) Baso # (Auto) Abs Immat Gran (auto) Absolute Neuts (auto) Absolute Nucleated RBC Nucleated RBC % (auto) Anion Gap Estim Creat Clear Calc Estimated GFR POC Glucose 107 100 Fasting Glucose Calcium Total Bilirubin AST ALT Alkaline Phosphatase Total Protein Albumin Microbiology Microbiology Results: Microbiology 04/24/23 17:21 Blood Culture - Preliminary Blood - Venous No growth after 48 hours. 04/24/23 17:13 Blood Culture - Preliminary Blood - Venous No growth after 48 hours. 04/24/23 Unknown Urine Culture - Final Urine Catheterized - Simeon Catheter Enterococcus faecalis Assessment and Plan (1) Gastric cancer: Status: Acute (2) Hydronephrosis: Status: Acute Plan d4 67yo F with metastatic gastric adenoCA s/p Melyssa-en-Y, HTN, DM2 recent percutaneous transhepatic biliary drainage 04/17/23 at [facility] in [place], [place] for malignant biliary obstruction; also bilateral nephrostomy tubes for malignant ureteral obstruction sent in with difficulty managing nephrostomy tubes + failure to thrive metastatic gastric adenoCA with malignant biliary + urinary obstruction - IR to internalize biliary drain today - s/p bilateral nephrostomy tube removal and ureteral stent change 04/25/[address] Manzo - will give IV fluids while NPO complicated UTI - has been on ceftriaxone since 04/24/23 but UCx growing Enterococcus faecalis, will change to ampicillin 04/27/23-05/07/23 and can switch to PO amoxicillin upon discharge home HTN - hold lisinopril DM2 - hold MTF, give lisseth-dose lispro VTE ppx - hold LMWH for biliary stent change dispo - eventual home In my clinical judgment, the patient requires continued inpatient hospitalization for the following reasons: biliary stent change, IV fluids/ABX Total time managing care of this patient today: 35 minutes. Quality Stroke Does the patient have a stroke diagnosis?: No VTE Prior VTE?: No VTE Risk Level:: Medical - moderate - high VTE Device Contraindication: Treatment Not Indicated VTE Drug Contraindication: N/A - Med Ordered
[2023-04-27] MEDS: Ampicillin Sodium 1 GM in 0.9 % Sodium Chloride 100 ML IV ×2 (15:06→19:37)
[2023-04-27] MEDS: Dextrose 5 % and Lactated Ring 1,000 ML 80 ML IVCONT (15:41)
[2023-04-27 16:20] LABS: Glucose, Whole Blood 141 mg/dL (60-115)
[2023-04-27 20:29] LABS: Glucose, Whole Blood 208 mg/dL (60-115)
[2023-04-27] MEDS: Insulin Lispro 100 UNIT/ML 3 ML VIAL SUBCUT (21:30)
[2023-04-28] VITALS (7 sets, daily range): BP systolic 104–140; BP diastolic 59–73; PULSE 100–114; RESP 16–18; TEMP 36.2–37; O2SAT 94–100
[2023-04-28] MEDS: Ampicillin Sodium 1 GM in 0.9 % Sodium Chloride 100 ML IV ×4 (02:07→19:50)
[2023-04-28] MEDS: Dextrose 5 % and Lactated Ring 1,000 ML 80 ML IVCONT (02:07)
[2023-04-28] MEDS: Morphine Sulfate 4 MG/ML CARTRIDGE IVPUSH ×4 (02:47→20:35)
[2023-04-28 07:21] LABS: Hemoglobin 10.4 g/dl (12.0-16.0); Mean Corpuscular HGB Conc 32.5 g/dl (31.0-35.0); Mean Corpuscular Volume 95.2 fL (80.0-98.0); Mean Platelet Volume 10.4 fL (9.4-12.3); Platelet Count 253 X10*3/uL (160-400); Red Blood Count 3.36 X10*6/uL (4.20-5.50); Red Cell Distribution Width 12.8 % (11.0-16.0); White Blood Count 5.6 X10*3/uL (4.8-10.8)
[2023-04-28 07:22] LABS: Glucose, Whole Blood 211 mg/dL (60-115)
[2023-04-28] MEDS: ondansetron HCL 4 MG/2 ML VIAL IVPUSH (07:37)
[2023-04-28] MEDS: 0.9 % Sodium Chloride Flush 3 ML SYRINGE IVFLUSH ×3 (07:37→19:51)
[2023-04-28 07:38] LABS: Alanine Aminotransferase 37 U/L (0-31); Albumin Level 2.7 g/dL (3.5-5.0); Alkaline Phosphatase 297 U/L (39-117); Anion Gap 13 (12-20); Aspartate Amino Transferase 57 U/L (5-31); Bilirubin Total 4.3 mg/dL (0.0-1.0); Blood Urea Nitrogen 15 mg/dL (9-16); Calcium 8.9 mg/dL (8.4-10.2); Carbon Dioxide 28 mmol/L (22-29); Chloride 99 mmol/L (96-108); Creatinine Clr Calc Pharmacy 68.2; Estimated Glomerular Filt Rate > 60; Glucose Random 234 mg/dL (60-115); Potassium 3.8 mmol/L (3.3-5.1); Sodium 136 mmol/L (135-145); Total Protein 5.3 g/dL (6.5-8.0)
[2023-04-28] MEDS: Insulin Lispro 100 UNIT/ML 3 ML VIAL SUBCUT (07:42)
[2023-04-28] MEDS: Acetaminophen 325 MG TABLET 650 MG PO (07:42)
--- NOTE | 2023-04-28 09:52 | HO.PM.IMPN ---
Subjective Subjective Date of Service: 04/28/23 Interval History: External biliary drain removed; stent patent C/o RUQ pain, severe Review of Systems Review of Systems: Yes all other systems are reviewed and are negative Physical Exam Vital Signs: Vital Signs: Last Vital Signs Temp 98.3 F 04/28/23 07:01 Pulse 112 H 04/28/23 08:21 Resp 16 04/28/23 07:40 BP 140/73 H 04/28/23 08:21 Pulse Ox 100 04/28/23 08:21 O2 Del Method Room Air 04/28/23 07:01 BMI result Body Mass Index 19.4 Gen: in no acute distress HEENT: icetric sclera, moist mucus membranes Neck: supple Lungs: clear to auscultation bilaterally Heart: regular rate and rhythm, no murmurs Abd: soft, RUQ tender, Simeon with dark urine Ext: no edema Skin: warm/well-perfused Neuro: alert and oriented x3, no focal findings Psych: appropriate affect Objective Data Active Medications Acetaminophen (Acetaminophen 325 Mg Tablet) 650 mg PO Q6H PRN PRN Reason: Pain, Mild (Pain Scale 1-3) Last Admin: 04/28/23 07:42 Dose: 650 mg Documented By: MARY Dextrose (Dextrose 50 % 25 Gm/50 Ml Syringe) 25 gm IVPUSH Q15M PRN; Protocol PRN Reason: per Hypoglycemia Standing Ord. Enoxaparin Sodium (Enoxaparin Sodium 40 Mg/0.4 Ml Syringe) 40 mg SUBCUT Q24H [facility] Last Admin: 04/26/23 15:45 Dose: Not Given Documented By: ALBERTO Non-Admin Reason: Patient Refused Fentanyl (Fentanyl Citrate/Pf 100 Mcg/2 Ml Vial) 12.5 mcg IVPUSH Q5M PRN; Protocol PRN Reason: Pain, Moderate(Pain Scale 4-6) Glucose (Glucose Gel 15 Gm Gel..Gram.) 15 gm PO Q15M PRN; Protocol PRN Reason: per Hypoglycemia Standing Ord. Ampicillin Sodium 1 gm/ Sodium (Chloride) 100 mls @ 200 mls/hr IV Q6H [facility] Last Infusion: 04/28/23 08:25 Dose: Infused Documented By: MARY Insulin Human Lispro (Insulin Lispro 100 Unit/Ml 3 Ml Vial) 0 unit SUBCUT QIDACHS [facility]; Protocol Last Admin: 04/28/23 07:42 Dose: 4 unit Documented By: MARY Morphine Sulfate (Morphine Sulfate 4 Mg/Ml Cartridge) 4 mg IVPUSH Q2H PRN; Protocol PRN Reason: Pain, Severe (Pain Scale 7-10) Ondansetron HCl (Ondansetron Hcl 4 Mg/2 Ml Vial) 4 mg IVPUSH Q8H PRN PRN Reason: Nausea and Vomiting Last Admin: 04/28/23 07:37 Dose: 4 mg Documented By: MARY Ondansetron HCl (Ondansetron Hcl 4 Mg/2 Ml Vial) 4 mg IVPUSH ONCE PRN PRN Reason: Nausea and Vomiting Oxycodone HCl (Oxycodone Hcl Immed Release 5 Mg Tablet) 10 mg PO Q4H PRN PRN Reason: Pain, Moderate(Pain Scale 4-6) Sodium Chloride (0.9 % Sodium Chloride Flush 3 Ml Syringe) 3 ml IVFSH [facility] Last Admin: 04/28/23 07:37 Dose: 3 ml Documented By: MARY Labs 04/28/23 06:53 04/28/23 06:53 Labs: Laboratory Results - last 24 hr 04/27/23 04/27/23 04/27/23 10:45 16:05 20:10 MCV MCH MCHC RDW Plt Count MPV Absolute Nucleated RBC Nucleated RBC % (auto) Anion Gap Estim Creat Clear Calc Estimated GFR POC Glucose 100 141 H 208 H Random Glucose Calcium Total Bilirubin AST ALT Alkaline Phosphatase Total Protein Albumin 04/28/23 04/28/23 06:53 07:02 MCV 95.2 MCH 31.0 MCHC 32.5 RDW 12.8 Plt Count 253 MPV 10.4 Absolute Nucleated RBC 0.000 Nucleated RBC % (auto) 0.0 Anion Gap 13 Estim Creat Clear Calc 68.2 Estimated GFR > 60 POC Glucose 211 H Random Glucose 234 H Calcium 8.9 Total Bilirubin 4.3 H AST 57 H ALT 37 H Alkaline Phosphatase 297 H Total Protein 5.3 L Albumin 2.7 L Impressions Peripheral Stent Insertion 04/27/23 12:30 IMPRESSION: Redemonstration of 4 cm malignant stricture in the distal common bile duct. Placement of a covered stent in the mid to distal common bile duct across the region of stricture. The stent was demonstrated to be widely patent with spontaneous drainage of bile. We therefore elected to pull the sheath and not leave any external drainage catheter in place. Assessment and Plan (1) Gastric cancer: Status: Acute (2) Hydronephrosis: Status: Acute Plan d5 67yo F with metastatic gastric adenoCA s/p Melyssa-en-Y, HTN, DM2 recent percutaneous transhepatic biliary drainage 04/17/23 at [facility] in [place], [place] for malignant biliary obstruction; also bilateral nephrostomy tubes for malignant ureteral obstruction sent in with difficulty managing nephrostomy tubes + failure to thrive metastatic gastric adenoCA with malignant biliary + urinary obstruction - 04/27/23: biliary stent patent per IR; external drain removed - s/p bilateral nephrostomy tube removal and ureteral stent change 04/25/[address] Manzo CA-associated pain - got 25 mg oxycodone + 20 mg IV morphine in last 24h. Will start MSSR 15 mg bid for basal pain control. complicated UTI - has been on ceftriaxone since 04/24/23 but UCx growing Enterococcus faecalis; changed to ampicillin 04/27/23-05/07/23 and can switch to PO amoxicillin upon discharge home HTN - lisinopril held due to soft BPs DM2 - hold MTF, give lisseth-dose lispro VTE ppx - held LMWH for biliary stent change dispo - eventual home with VNA; PT eval done today In my clinical judgment, the patient requires continued inpatient hospitalization for the following reasons: IV ABX, pain contrl Total time managing care of this patient today: 35 minutes. Quality Stroke Does the patient have a stroke diagnosis?: No VTE Prior VTE?: No VTE Risk Level:: Medical - moderate - high VTE Device Contraindication: Treatment Not Indicated VTE Drug Contraindication: N/A - Med Ordered
--- NOTE | 2023-04-28 10:23 | MHC.CM.PN ---
EMR reviewed. Per MD rounds patient is not medically cleared for DC r/t uncontrolled pain. Anticipate DC tomorrow, home w/ new [facility]NA. CM will continue to follow.
--- NOTE | 2023-04-28 10:23 | MHC.CLN ---
F/U PATIENT FOLLOWS VEGAN DIET. ABLE TO SELECT OWN FOODS. DX GASTRIC CANCER WITH METS. RECENT HX POOR INTAKE. MOST RECENT INTAKE 1 MEALS X 50%L 1 MEAL X 75%. MONITOR PO INTAKE CLOSELY AND ENCOURAGE PO ABLE.
[2023-04-28 11:07] LABS: Glucose, Whole Blood 103 mg/dL (60-115)
[2023-04-28] MEDS: Morphine Sulfate ER 15 MG TABLET.ER PO ×2 (11:09→22:06)
[2023-04-28 16:14] LABS: Glucose, Whole Blood 104 mg/dL (60-115)
[2023-04-29] MEDS: Ampicillin Sodium 1 GM in 0.9 % Sodium Chloride 100 ML IV ×4 (02:06→19:23)
[2023-04-29 04:00] VITALS: BP 112/66; PULSE 86; RESP 19; TEMP 36.7; O2SAT 98
[2023-04-29 07:02] LABS: Alanine Aminotransferase 37 U/L (0-31); Albumin Level 2.7 g/dL (3.5-5.0); Alkaline Phosphatase 316 U/L (39-117); Anion Gap 13 (12-20); Aspartate Amino Transferase 66 U/L (5-31); Bilirubin Total 5.2 mg/dL (0.0-1.0); Blood Urea Nitrogen 15 mg/dL (9-16); Calcium 9.3 mg/dL (8.4-10.2); Carbon Dioxide 31 mmol/L (22-29); Chloride 99 mmol/L (96-108); Estimated Glomerular Filt Rate > 60; Glucose Random 114 mg/dL (60-115); Potassium 3.8 mmol/L (3.3-5.1); Sodium 139 mmol/L (135-145); Total Protein 5.4 g/dL (6.5-8.0)
[2023-04-29 07:35] VITALS: BP 118/65; PULSE 118; RESP 18; TEMP 37; O2SAT 96
[2023-04-29 07:39] LABS: Bilirubin Direct 4.3 mg/dL (0.0-0.5)
[2023-04-29] MEDS: Morphine Sulfate 4 MG/ML CARTRIDGE IVPUSH ×2 (07:46→22:14)
[2023-04-29 07:51] LABS: Glucose, Whole Blood 105 mg/dL (60-115)
[2023-04-29] MEDS: 0.9 % Sodium Chloride Flush 3 ML SYRINGE IVFLUSH ×3 (08:43→22:14)
--- NOTE | 2023-04-29 09:28 | P.PNIM_ITS ---
Subjective Subjective Date of Service: 04/29/23 Interval History: c/o RUQ pain Tbili creeping up dry mouth Review of Systems Review of Systems: Yes all other systems are reviewed and are negative Physical Exam 2 Vital Signs: Vital Signs: Last Vital Signs Temp 98.6 F 04/29/23 07:35 Pulse 118 H 04/29/23 07:35 Resp 18 04/29/23 07:35 BP 118/65 04/29/23 07:35 Pulse Ox 96 04/29/23 07:35 O2 Del Method Room Air 04/29/23 07:35 Oxygen Flow Rate 4.0 04/28/23 17:00 BMI result Body Mass Index 19.4 Gen: in no acute distress HEENT: icetric sclera, moist mucus membranes Neck: supple Lungs: clear to auscultation bilaterally Heart: regular rate and rhythm, no murmurs Abd: soft, RUQ tender, Simeon with dark urine Ext: no edema Skin: warm/well-perfused Neuro: alert and oriented x3, no focal findings Psych: appropriate affect Objective Data Active Medications Acetaminophen (Acetaminophen 325 Mg Tablet) 650 mg PO Q6H PRN PRN Reason: Pain, Mild (Pain Scale 1-3) Last Admin: 04/28/23 07:42 Dose: 650 mg Documented By: MARY Dextrose (Dextrose 50 % 25 Gm/50 Ml Syringe) 25 gm IVPUSH Q15M PRN; Protocol PRN Reason: per Hypoglycemia Standing Ord. Enoxaparin Sodium (Enoxaparin Sodium 40 Mg/0.4 Ml Syringe) 40 mg SUBCUT Q24H [facility] Last Admin: 04/26/23 15:45 Dose: Not Given Documented By: ALBERTO Non-Admin Reason: Patient Refused Fentanyl (Fentanyl Citrate/Pf 100 Mcg/2 Ml Vial) 12.5 mcg IVPUSH Q5M PRN; Protocol PRN Reason: Pain, Moderate(Pain Scale 4-6) Glucose (Glucose Gel 15 Gm Gel..Gram.) 15 gm PO Q15M PRN; Protocol PRN Reason: per Hypoglycemia Standing Ord. Ampicillin Sodium 1 gm/ Sodium (Chloride) 100 mls @ 200 mls/hr IV Q6H [facility] Last Infusion: 04/29/23 08:31 Dose: Infused Documented By: JOYCE Insulin Human Lispro (Insulin Lispro 100 Unit/Ml 3 Ml Vial) 0 unit SUBCUT QIDACHS [facility]; Protocol Last Admin: 04/29/23 07:37 Dose: Not Given Documented By: JOYCE Non-Admin Reason: No Insulin Coverage Morphine Sulfate (Morphine Sulfate 4 Mg/Ml Cartridge) 4 mg IVPUSH Q2H PRN; Protocol PRN Reason: Pain, Severe (Pain Scale 7-10) Last Admin: 04/29/23 07:46 Dose: 4 mg Documented By: JOYCE Morphine Sulfate (Morphine Sulfate Er 15 Mg Tablet.Er) 15 mg PO Q12H [facility] Last Admin: 04/28/23 22:06 Dose: 15 mg Documented By: ROASMARIA Ondansetron HCl (Ondansetron Hcl 4 Mg/2 Ml Vial) 4 mg IVPUSH Q8H PRN PRN Reason: Nausea and Vomiting Last Admin: 04/28/23 07:37 Dose: 4 mg Documented By: MARY Ondansetron HCl (Ondansetron Hcl 4 Mg/2 Ml Vial) 4 mg IVPUSH ONCE PRN PRN Reason: Nausea and Vomiting Oxycodone HCl (Oxycodone Hcl Immed Release 5 Mg Tablet) 10 mg PO Q4H PRN PRN Reason: Pain, Moderate(Pain Scale 4-6) Sodium Chloride (0.9 % Sodium Chloride Flush 3 Ml Syringe) 3 ml IVFLUSH [facility] Last Admin: 04/29/23 08:43 Dose: 3 ml Documented By: JOYCE Labs 04/28/23 06:53 04/29/23 05:54 Labs: Laboratory Results - last 24 hr 04/28/23 04/28/23 04/29/23 10:58 16:11 05:54 Hold Purple Top SEE NOTE Anion Gap 13 Estim Creat Clear Calc 83.0 Estimated GFR > 60 POC Glucose 103 104 Random Glucose 114 Calcium 9.3 Total Bilirubin 5.2 H Direct Bilirubin 4.3 H AST 66 H ALT 37 H Alkaline Phosphatase 316 H Total Protein 5.4 L Albumin 2.7 L 04/29/23 07:34 Hold Purple Top Anion Gap Estim Creat Clear Calc Estimated GFR POC Glucose 105 Random Glucose Calcium Total Bilirubin Direct Bilirubin AST ALT Alkaline Phosphatase Total Protein Albumin Assessment and Plan (1) Gastric cancer: Status: Acute (2) Hydronephrosis: Status: Acute Plan d6 67yo F with metastatic gastric adenoCA s/p Melyssa-en-Y, HTN, DM2 recent percutaneous transhepatic biliary drainage 04/17/23 at [facility] in [place], [place] for malignant biliary obstruction; also bilateral nephrostomy tubes for malignant ureteral obstruction sent in with difficulty managing nephrostomy tubes + failure to thrive metastatic gastric adenoCA with malignant biliary + urinary obstruction - 04/27/23: biliary stent patent per IR; external drain removed. Follow LFTs. - s/p bilateral nephrostomy tube removal and ureteral stent change 04/25/[address] Manzo CA-associated pain - got 25 mg oxycodone + 20 mg IV morphine in last 24h. increase MSSR 15 mg q12h -> q8h for improved basal pain control complicated UTI - has been on ceftriaxone since 04/24/23 but UCx growing Enterococcus faecalis; changed to ampicillin 04/27/23-05/07/23 and can switch to PO amoxicillin upon discharge home HTN - lisinopril held due to soft BPs DM2 - hold MTF, give lisseth-dose lispro VTE ppx - held LMWH for biliary stent change dispo - eventual home with VNA per PT eval In my clinical judgment, the patient requires continued inpatient hospitalization for the following reasons: IV ABX, pain control, worsening Tbili Total time managing care of this patient today: 35 minutes. Quality Stroke Does the patient have a stroke diagnosis?: No VTE Prior VTE?: No VTE Risk Level:: Medical - moderate - high VTE Device Contraindication: Treatment Not Indicated VTE Drug Contraindication: N/A - Med Ordered
[2023-04-29] MEDS: Lactated Ringers 1,000 ML 80 ML IVCONT ×2 (11:12→22:15)
[2023-04-29] MEDS: Morphine Sulfate ER 15 MG TABLET.ER PO ×2 (11:12→17:40)
[2023-04-29 11:34] LABS: Glucose, Whole Blood 99 mg/dL (60-115)
[2023-04-29 15:01] VITALS: BP 113/65; PULSE 114; RESP 17; TEMP 36.4; O2SAT 95
[2023-04-29 16:31] LABS: Glucose, Whole Blood 121 mg/dL (60-115)
[2023-04-29 17:00] VITALS: O2SAT 95
[2023-04-29 19:13] VITALS: BP 109/62; PULSE 110; RESP 16; TEMP 36.3; O2SAT 96
[2023-04-29 21:21] LABS: Glucose, Whole Blood 132 mg/dL (60-115)
[2023-04-30] MEDS: Morphine Sulfate ER 15 MG TABLET.ER PO ×3 (02:21→17:15)
[2023-04-30] MEDS: Ampicillin Sodium 1 GM in 0.9 % Sodium Chloride 100 ML IV ×4 (02:23→19:34)
[2023-04-30 04:18] VITALS: BP 116/63; PULSE 107; RESP 14; TEMP 36.7; O2SAT 96
[2023-04-30 06:54] LABS: Alanine Aminotransferase 36 U/L (0-31); Albumin Level 2.7 g/dL (3.5-5.0); Alkaline Phosphatase 334 U/L (39-117); Anion Gap 13 (12-20); Aspartate Amino Transferase 73 U/L (5-31); Bilirubin Direct 4.7 mg/dL (0.0-0.5); Bilirubin Total 5.8 mg/dL (0.0-1.0); Blood Urea Nitrogen 13 mg/dL (9-16); Calcium 9.1 mg/dL (8.4-10.2); Carbon Dioxide 31 mmol/L (22-29); Chloride 99 mmol/L (96-108); Creatinine Clr Calc Pharmacy 87.8; Estimated Glomerular Filt Rate > 60; Glucose Random 98 mg/dL (60-115); Potassium 3.7 mmol/L (3.3-5.1); Sodium 139 mmol/L (135-145); Total Protein 5.3 g/dL (6.5-8.0)
[2023-04-30 07:21] VITALS: BP 121/59; PULSE 104; RESP 18; TEMP 36.4; O2SAT 93
[2023-04-30 07:44] LABS: Glucose, Whole Blood 90 mg/dL (60-115)
[2023-04-30] MEDS: Lactated Ringers 1,000 ML 80 ML IVCONT (09:23)
--- NOTE | 2023-04-30 09:25 | P.PNIM_ITS ---
Subjective Subjective Date of Service: 04/30/23 Interval History: pain improved on MSSR q8h Review of Systems Review of Systems: Yes all other systems are reviewed and are negative Physical Exam 2 Vital Signs: Vital Signs: Last Vital Signs Temp 97.6 F 04/30/23 07:21 Pulse 104 H 04/30/23 07:21 Resp 18 04/30/23 07:21 BP 121/59 L 04/30/23 07:21 Pulse Ox 93 04/30/23 07:21 O2 Del Method Room Air 04/30/23 07:21 Oxygen Flow Rate 4.0 04/28/23 17:00 BMI result Body Mass Index 19.4 Gen: in no acute distress HEENT: icetric sclera, moist mucus membranes Neck: supple Lungs: clear to auscultation bilaterally Heart: regular rate and rhythm, no murmurs Abd: soft, RUQ tender, Simeon with dark urine Ext: no edema Skin: warm/well-perfused Neuro: alert and oriented x3, no focal findings Psych: appropriate affect Objective Data Active Medications Acetaminophen (Acetaminophen 325 Mg Tablet) 650 mg PO Q6H PRN PRN Reason: Pain, Mild (Pain Scale 1-3) Last Admin: 04/28/23 07:42 Dose: 650 mg Documented By: MARY Dextrose (Dextrose 50 % 25 Gm/50 Ml Syringe) 25 gm IVPUSH Q15M PRN; Protocol PRN Reason: per Hypoglycemia Standing Ord. Enoxaparin Sodium (Enoxaparin Sodium 40 Mg/0.4 Ml Syringe) 40 mg SUBCUT Q24H [facility] Last Admin: 04/26/23 15:45 Dose: Not Given Documented By: ALBERTO Non-Admin Reason: Patient Refused Fentanyl (Fentanyl Citrate/Pf 100 Mcg/2 Ml Vial) 12.5 mcg IVPUSH Q5M PRN; Protocol PRN Reason: Pain, Moderate(Pain Scale 4-6) Glucose (Glucose Gel 15 Gm Gel..Gram.) 15 gm PO Q15M PRN; Protocol PRN Reason: per Hypoglycemia Standing Ord. Ampicillin Sodium 1 gm/ Sodium (Chloride) 100 mls @ 200 mls/hr IV Q6H [facility] Last Admin: 04/30/23 09:24 Dose: 200 mls/hr Documented By: JOYCE Lactated Ringer's (Lr) 1,000 mls @ 80 mls/hr IVCONT .[id number] [facility] Last Admin: 04/30/23 09:23 Dose: 80 mls/hr Documented By: JOYCE Insulin Human Lispro (Insulin Lispro 100 Unit/Ml 3 Ml Vial) 0 unit SUBCUT QIDACHS [facility]; Protocol Last Admin: 04/30/23 08:05 Dose: Not Given Documented By: JOYCE Non-Admin Reason: No Insulin Coverage Morphine Sulfate (Morphine Sulfate 4 Mg/Ml Cartridge) 4 mg IVPUSH Q2H PRN; Protocol PRN Reason: Pain, Severe (Pain Scale 7-10) Last Admin: 04/29/23 22:14 Dose: 4 mg Documented By: ROSAMARIA Morphine Sulfate (Morphine Sulfate Er 15 Mg Tablet.Er) 15 mg PO Q8H [facility] Last Admin: 04/30/23 09:20 Dose: 15 mg Documented By: JOYCE Ondansetron HCl (Ondansetron Hcl 4 Mg/2 Ml Vial) 4 mg IVPUSH Q8H PRN PRN Reason: Nausea and Vomiting Last Admin: 04/28/23 07:37 Dose: 4 mg Documented By: MARY Ondansetron HCl (Ondansetron Hcl 4 Mg/2 Ml Vial) 4 mg IVPUSH ONCE PRN PRN Reason: Nausea and Vomiting Oxycodone HCl (Oxycodone Hcl Immed Release 5 Mg Tablet) 10 mg PO Q4H PRN PRN Reason: Pain, Moderate(Pain Scale 4-6) Sodium Chloride (0.9 % Sodium Chloride Flush 3 Ml Syringe) 3 ml IVFLUSH QSHIFT [facility] Last Admin: 04/30/23 08:34 Dose: Not Given Documented By: JOYCE Non-Admin Reason: IV Running Labs 04/28/23 06:53 04/30/23 06:06 Labs: Laboratory Results - last 24 hr 04/29/23 04/29/23 04/29/23 11:20 16:18 20:37 Hold Purple Top Anion Gap Estim Creat Clear Calc Estimated GFR POC Glucose 99 121 H 132 H Random Glucose Calcium Total Bilirubin Direct Bilirubin AST ALT Alkaline Phosphatase Total Protein Albumin 04/30/23 04/30/23 06:06 07:38 Hold Purple Top SEE NOTE Anion Gap 13 Estim Creat Clear Calc 87.8 Estimated GFR > 60 POC Glucose 90 Random Glucose 98 Calcium 9.1 Total Bilirubin 5.8 H Direct Bilirubin 4.7 H AST 73 H ALT 36 H Alkaline Phosphatase 334 H Total Protein 5.3 L Albumin 2.7 L Microbiology Microbiology Results: Microbiology 04/24/23 17:21 Blood Culture - Final Blood - Venous No growth after 5 days. 04/24/23 17:13 Blood Culture - Final Blood - Venous No growth after 5 days. Assessment and Plan (1) Gastric cancer: Status: Acute (2) Hydronephrosis: Status: Acute Plan d7 67yo F with metastatic gastric adenoCA s/p Melyssa-en-Y, HTN, DM2 recent percutaneous transhepatic biliary drainage 04/17/23 at [facility] in [place], [place] for malignant biliary obstruction; also bilateral nephrostomy tubes for malignant ureteral obstruction sent in with difficulty managing nephrostomy tubes + failure to thrive metastatic gastric adenoCA with malignant biliary + urinary obstruction - 04/27/23: biliary stent patent per IR; external drain removed. Follow LFTs. - s/p bilateral nephrostomy tube removal and ureteral stent change 04/25/[address] Manzo CA-associated pain - increased MSSR 15 mg q12h -> q8h for improved basal pain control, encourage use of oxycodone for breakthrough pain complicated UTI - has been on ceftriaxone since 04/24/23 but UCx growing Enterococcus faecalis; changed to ampicillin 04/27/23-05/07/23 and can switch to PO amoxicillin upon discharge home HTN - lisinopril held due to soft BPs DM2 - hold MTF, give lisseth-dose lispro VTE ppx - held LMWH for biliary stent change dispo - eventual home with VNA per PT eval In my clinical judgment, the patient requires continued inpatient hospitalization for the following reasons: IV ABX, pain control, worsening Tbili Total time managing care of this patient today: 35 minutes. Quality Stroke Does the patient have a stroke diagnosis?: No VTE Prior VTE?: No VTE Risk Level:: Medical - moderate - high VTE Device Contraindication: Treatment Not Indicated VTE Drug Contraindication: N/A - Med Ordered
[2023-04-30 11:34] LABS: Glucose, Whole Blood 91 mg/dL (60-115)
--- NOTE | 2023-04-30 13:37 | MHC.CM.PN ---
PT IS EXPECTED TO DC HOME TOMORROW WITH VNA PTS CONCERNED PHARMACY WILL NOT BE OPEN CM CALLED NILAY, THE PHARMACY WILL BE OPEN UNTIL 1700 HOURS TODAY PTS RX WAS SENT ELECTRONICALLY, AND A PAPER RX WAS PROVIDED FOR PTS PAIN MED PTS WILL LOG GETTER THE MEDS TODAY IN ANTICIPATION OF DC TOMORROW VNA REFERRAL OUT
[2023-04-30 15:20] VITALS: BP 114/60; PULSE 104; RESP 17; TEMP 36.5; O2SAT 97
[2023-04-30 16:11] LABS: Glucose, Whole Blood 90 mg/dL (60-115)
[2023-04-30] MEDS: 0.9 % Sodium Chloride Flush 3 ML SYRINGE IVFLUSH ×2 (16:27→19:34)
[2023-04-30 17:00] VITALS: O2SAT 97
[2023-04-30 19:28] VITALS: BP 120/59; PULSE 103; RESP 18; TEMP 36.7; O2SAT 93
[2023-04-30 20:42] LABS: Glucose, Whole Blood 100 mg/dL (60-115)
[2023-05-01] MEDS: Morphine Sulfate ER 15 MG TABLET.ER PO ×2 (01:57→09:32)
[2023-05-01] MEDS: Ampicillin Sodium 1 GM in 0.9 % Sodium Chloride 100 ML IV ×2 (01:58→07:45)
[2023-05-01 04:00] VITALS: BP 119/64; PULSE 107; RESP 18; TEMP 36.6; O2SAT 95
[2023-05-01 06:45] LABS: Alanine Aminotransferase 34 U/L (0-31); Albumin Level 2.4 g/dL (3.5-5.0); Alkaline Phosphatase 337 U/L (39-117); Anion Gap 12 (12-20); Aspartate Amino Transferase 75 U/L (5-31); Bilirubin Total 6.1 mg/dL (0.0-1.0); Blood Urea Nitrogen 9 mg/dL (9-16); Calcium 8.7 mg/dL (8.4-10.2); Carbon Dioxide 31 mmol/L (22-29); Chloride 100 mmol/L (96-108); Creatinine Clr Calc Pharmacy 99.3; Estimated Glomerular Filt Rate > 60; Glucose Random 67 mg/dL (60-115); Potassium 3.3 mmol/L (3.3-5.1); Sodium 140 mmol/L (135-145); Total Protein 4.8 g/dL (6.5-8.0)
[2023-05-01 07:08] VITALS: BP 136/73; PULSE 101; RESP 16; TEMP 36.9; O2SAT 95
[2023-05-01 07:10] LABS: Glucose, Whole Blood 64 mg/dL (60-115)
[2023-05-01 07:21] LABS: Glucose, Whole Blood 70 mg/dL (60-115)
[2023-05-01 07:38] LABS: Glucose, Whole Blood 83 mg/dL (60-115)
[2023-05-01] MEDS: 0.9 % Sodium Chloride Flush 3 ML SYRINGE IVFLUSH (07:45)
--- NOTE | 2023-05-01 09:01 | W.MHC.F2F ---
Service Date Service Date: 05/01/23 Encounter Date of encounter: 05/01/23 Reasons for Services Signs and symptoms assessed: cancer-associated pain Reason for penitentiary: medication management, medication treatment and teach disease management Reason for physical therapy: home safety and mobility, therapeutic exercises, gait/transfer training, assess need for DME, ADL training and energy conservation MD Overseeing Care: Gabriel Woodard Homebound: Leaving the home is medically contraindicated at this time without the asist of a device and/or another person due th the listed conditions above and below. Reason homebound: unsteady gait / fall risk and weakness related to hospital stay Certification: Based on the above findings, I certify that this patient is confined to the home and needs intermittent penitentiary care, physical therapy and/or speech therapy, or continues to need occupational therapy. The patient is under my care, and I have initiated the establishment of the plan of care. The patient will be followed by a physician who will periodically review the plan of care. Time Spent With Patient Time: Total time managing care of this patient today ____ minutes.
--- NOTE | 2023-05-01 09:02 | PM.DS ---
DS: Providers Provider Date of Service: 05/01/23 Date of admission: 04/24/23 16:15 Primary care physician: June Cisneros MD Consults: 04/24/23 18:40 Consult to Hematology / Oncology Routine Consulting Provider: June Cisneros Reason for consultation: Metastatic gastric adenocarcinoma Has provider been notified: No Consult to Urology Routine Consulting Provider: Shukri Manzo Reason for consultation: evaluate nephrostomy tubes Has provider been notified: No DS: Diagnosis Discharge Diagnosis (1) Gastric cancer: Status: Acute (2) Hydronephrosis: Status: Acute (3) Malignant biliary obstruction: Status: Acute (4) Cancer associated pain: Status: Acute (5) Complicated UTI (urinary tract infection): Status: Acute DS: Summary Hospital Course Hospital Course: From the history and physical by the admitting hospitalist, Mamadou Mayo DO, 04/24/23: 67-year-old female with history of metastatic gastric adenocarcinoma s/p total gastrectomy w/ Melyssa en Y reconstruction, HTN, T2DM presenting to the ED from Dr. Cisneros's office for concern of difficulty managing nephrostomy tubes. Patient was seen in this ED on 04/13, and transferred to [facility] for further management of significant biliary tract and urinary tract obstruction. Patient was discharged home from [facility] on , was told to change dressings around biliary and nephrostomy drains after 3 days. states that VNA has not been to their home yet to address this. Patient complains of chronic right upper quadrant abdominal pain as well as nausea. She denies vomiting or diarrhea. She denies fevers. She denies chest pain, palpitations, shortness of breath. Patient and state that she is tolerating small amounts of p.o. fluids but has not been eating. Patient reports that the long-term plan is additional chemotherapy. She is currently on oxycodone to manage her pain, ER course ER discussed with Urology who recommended admit to Medicine with cultures and will see in a.m.; given a g ceftriaxone after cultures obtained. Admit for further management 67yo F with metastatic gastric adenoCA s/p Melyssa-en-Y, HTN, and DM2 with recent percutaneous transhepatic biliary drainage 04/17/[address] [facility] in [place], [place] for malignant biliary obstruction; also had bilateral nephrostomy tubes for malignant ureteral obstruction. She was sent in with difficulty managing nephrostomy tubes + failure to thrive. Hospital course by problem: metastatic gastric adenoCA with malignant biliary + urinary obstruction - 04/25/23: bilateral nephrostomy tube removal and ureteral stent change by Urology. - 04/27/23: biliary stent patent per IR; external drain removed. Monitoring LFTs and should recheck on 05/03/23. CA-associated pain - Start MSSR 15 mg q8h, oxycodone 5 mg q4h for breakthrough pain. Prescriptions provided upon discharge. complicated UTI - Ceftriaxone given 04/24/23-04/27/23, but UCx grew Enterococcus faecalis. Changed to ampicillin 04/27/23 and discharged om amoxicillin, total course 10 days. She was discharged home with VNA services and will need to follow up with [facility] later this week. Time Attestation Total time managing care of this patient today: 40 mintues. Discharge coordination time: Greater than 30 minutes Quality: Safe Use of Opioids Does Pt have an Active Cancer Diagnosis on the Problem List?: No Quality: Stroke Does the patient have a stroke diagnosis?: No Physical Exam Vital Signs: Vital Signs: Last Vital Signs Temp 98.4 F 05/01/23 07:08 Pulse 101 H 05/01/23 07:08 Resp 16 05/01/23 07:08 BP 136/73 05/01/23 07:08 Pulse Ox 95 05/01/23 07:08 O2 Del Method Room Air 05/01/23 07:08 Oxygen Flow Rate 4.0 04/28/23 17:00 BMI result Body Mass Index 19.4 Gen: in no acute distress HEENT: icetric sclera, moist mucus membranes Neck: supple Lungs: clear to auscultation bilaterally Heart: regular rate and rhythm, no murmurs Abd: soft, RUQ tender, Simeon with dark urine Ext: no edema Skin: warm/well-perfused Neuro: alert and oriented x3, no focal findings Psych: appropriate affect DS: Data Data Completed and Pending Completed studies during hospitalization [Text1]: Laboratory Results WBC 5.6 X10*3/uL (4.8-10.8) 04/28/23 06:53 RBC 3.36 X10*6/uL (4.20-5.50) L 04/28/23 06:53 Hgb 10.4 g/dl (12.0-16.0) L 04/28/23 06:53 Hct 32.0 % (37.0-47.0) L 04/28/23 06:53 MCV 95.2 fL (80.0-98.0) 04/28/23 06:53 MCH 31.0 pg (27.0-33.0) 04/28/23 06:53 MCHC 32.5 g/dl (31.0-35.0) 04/28/23 06:53 RDW 12.8 % (11.0-16.0) 04/28/23 06:53 Plt Count 253 X10*3/uL (160-400) 04/28/23 06:53 MPV 10.4 fL (9.4-12.3) 04/28/23 06:53 Immature Gran % (Auto) 0.4 % (0.0-0.4) 04/27/23 05:45 Neut % (Auto) 75.9 % (45-73) H 04/27/23 05:45 Lymph % (Auto) 14.0 % (20-40) L 04/27/23 05:45 White % (Auto) 8.6 % (2-11) 04/27/23 05:45 Eos % (Auto) 0.9 % (0-4) 04/27/23 05:45 Baso % (Auto) 0.2 % (0-2) 04/27/23 05:45 Lymph # (Auto) 0.7 X10*3/uL (1.2-4.9) L 04/27/23 05:45 White # (Auto) 0.4 X10*3/uL (0.1-1.2) 04/27/23 05:45 Eos # (Auto) 0.0 X10*3/uL (0.0-0.4) 04/27/23 05:45 Baso # (Auto) 0.0 X10*3/uL (0.0-0.2) 04/27/23 05:45 Abs Immat Gran (auto) 0.02 X10*3/uL (0.00-0.03) 04/27/23 05:45 Absolute Neuts (auto) 3.5 x10*3/uL (2.0-8.3) 04/27/23 05:45 Absolute Nucleated RBC 0.000 X10*3/uL (0.0-0.012) 04/28/23 06:53 Nucleated RBC % (auto) 0.0 /100WBC (0.0-0.2) 04/28/23 06:53 Neutrophils % (Manual) 78 % (45-73) H 04/24/23 13:21 Band Neutrophils % 3 % (3-5) 04/24/23 13:21 Lymphocytes % (Manual) 10 % (20-40) L 04/24/23 13:21 Monocytes % (Manual) 9 % (2-11) 04/24/23 13:21 Abs Neuts (Manual) 6.2 X10*3/uL (2.0-8.3) 04/24/23 13:21 Lymphocytes # (Manual) 0.8 X10*3/uL (1.2-4.9) L 04/24/23 13:21 Monocytes # (Manual) 0.7 X10*3/uL (0.1-1.2) 04/24/23 13:21 Toxic Vacuolation PRESENT 04/24/23 13:21 Platelet Estimate NORMAL (NORMAL) 04/24/23 13:21 Plt Morphology Comment NORMAL 04/24/23 13:21 RBC Morphology NORMAL 04/24/23 13:21 Hold Purple Top SEE NOTE 04/30/23 06:06 PT 16.4 SEC (11.1-13.3) H D 04/26/23 06:22 INR 1.3 (0.9-1.1) H 04/26/23 06:22 Sodium 140 mmol/L (135-145) 05/01/23 06:01 Potassium 3.3 mmol/L (3.3-5.1) 05/01/23 06:01 Chloride 100 mmol/L (96-108) 05/01/23 06:01 Carbon Dioxide 31 mmol/L (22-29) H 05/01/23 06:01 Anion Gap 12 (12-20) 05/01/23 06:01 BUN 9 mg/dL (9-16) 05/01/23 06:01 Creatinine 0.46 mg/dL (0.5-1.4) L 05/01/23 06:01 Estim Creat Clear Calc 99.3 05/01/23 06:01 Estimated GFR > 60 05/01/23 06:01 POC Glucose 83 mg/dL (60-115) 05/01/23 07:34 Random Glucose 67 mg/dL (60-115) 05/01/23 06:01 Fasting Glucose 112 mg/dL (60-99) H 04/27/23 05:45 Calcium 8.7 mg/dL (8.4-10.2) 05/01/23 06:01 Total Bilirubin 6.1 mg/dL (0.0-1.0) H 05/01/23 06:01 Direct Bilirubin 5.0 mg/dL (0.0-0.5) H 05/01/23 06:01 AST 75 U/L (5-31) H 05/01/23 06:01 ALT 34 U/L (0-31) H 05/01/23 06:01 Alkaline Phosphatase 337 U/L (39-117) H 05/01/23 06:01 Total Protein 4.8 g/dL (6.5-8.0) L 05/01/23 06:01 Albumin 2.4 g/dL (3.5-5.0) L 05/01/23 06:01 Urine Color DK YELLOW 04/24/23 Unknown Urine Color DK YELLOW 04/24/23 Unknown Urine Appearance Cloudy 04/24/23 Unknown Urine Appearance Cloudy 04/24/23 Unknown Urine pH 5.5 (5.0-9.0) 04/24/23 Unknown Urine pH 6.5 (5.0-9.0) 04/24/23 Unknown Ur Specific Mckinnon 1.025 (1.005-1.025) 04/24/23 Unknown Ur Specific Mckinnon 1.025 (1.005-1.025) 04/24/23 Unknown Urine Protein 300 (3+) mg/dL (Neg-Trace) H 04/24/23 Unknown Urine Protein 300 (3+) mg/dL (Neg-Trace) H 04/24/23 Unknown Urine Glucose (UA) Negative mg/dL (Negative) 04/24/23 Unknown Urine Glucose (UA) Negative mg/dL (Negative) 04/24/23 Unknown Urine Ketones 40 mg/dL (Negative) 04/24/23 Unknown Urine Ketones 40 mg/dL (Negative) 04/24/23 Unknown Urine Blood Large (3+) (Negative) H 04/24/23 Unknown Urine Blood Large (3+) (Negative) H 04/24/23 Unknown Urine Nitrite Negative (Negative) 04/24/23 Unknown Urine Nitrite Positive (Negative) H 04/24/23 Unknown Ur Leukocyte Esterase Moderate (2+) (Negative) H 04/24/23 Unknown Ur Leukocyte Esterase Small (1+) (Negative) H 04/24/23 Unknown Urine RBC >20 /HPF (0-2) H 04/24/23 Unknown Urine RBC >20 /HPF (0-2) H 04/24/23 Unknown Urine WBC >50 /HPF (0-5) H 04/24/23 Unknown Urine WBC >50 /HPF (0-5) H 04/24/23 Unknown Urine WBC Clumps Present 04/24/23 Unknown Ur Squamous Epith Cells 0-2 /HPF (0-2) 04/24/23 Unknown Ur Squamous Epith Cells 3-5 /HPF (0-2) 04/24/23 Unknown Urine Bacteria 1+ (None Seen) 04/24/23 Unknown Urine Bacteria 4+ (None Seen) 04/24/23 Unknown Hyaline Casts 0-2 /LPF (0-2) 04/24/23 Unknown Hyaline Casts 11-20 /LPF (0-2) 04/24/23 Unknown Granular Casts Present 04/24/23 Unknown Urine Yeast Present 04/24/23 Unknown Impressions Guidance Fluoroscopy 04/25/23 17:46 IMPRESSION: Intraoperative fluoroscopy for urological procedure. Peripheral Stent Insertion 04/27/23 12:30 IMPRESSION: Redemonstration of 4 cm malignant stricture in the distal common bile duct. Placement of a covered stent in the mid to distal common bile duct across the region of stricture. The stent was demonstrated to be widely patent with spontaneous drainage of bile. We therefore elected to pull the sheath and not leave any external drainage catheter in place. Discharge Plan Discharge Anticipated Discharge Date/Time: 04/30/23 13:22 Patient Disposition: Home Health Service Discharge Diagnosis: metastatic gastric cancer with malignant ureteral and biliary strictures urinary tract infection Referrals: June Cisneros MD [Primary Care Provider] - 1 Week Gabriel Woodard MD [Physician] - 1 Week Discharge Medications: New morphine 15 mg Tablet Extended Release 15 mg PO Q8H Qty: 90 0RF Rx Instructions: Partial Fill upon patient request. amoxicillin 500 mg tablet 500 mg PO TID Qty: 21 0RF Continued (DME) FreeStyle Michele 14 Day [place] [facility] [place] See Rx Instructions .ROUTE .MEDSUPPLY Qty: 1 0RF Rx Instructions: As directed multivitamin Tablet 1 tab PO DAILY cholecalciferol (vitamin D3) 25 mcg (1,000 unit) Tablet 25 mcg PO DAILY cyanocobalamin (vitamin B-12) 5,000 mcg Tablet, Sublingual 5,000 mcg SUBLINGUAL DAILY metformin 500 mg tablet 500 mg PO DAILY@1500 lisinopril 10 mg tablet 10 mg PO DAILY@2300 (DME) pen needle, diabetic [BD Ultra-Fine Mini Pen Needle] 31 gauge x 3/16 needle See Rx Instructions .ROUTE .MEDSUPPLY Qty: 100 3RF Rx Instructions: As directed Inject 10 U lantus QD Changed oxycodone 5 mg Tablet 5 mg PO Q4H PRN (Reason: Breakthrough Pain, Mild) Qty: 60 0RF Rx Instructions: Partial Fill upon patient request. Discharge Orders: Discharge Order (Routine); Ordered 05/01/23 Ordered By: Rossy Goff Diet: Advance to usual diet Activity on Discharge: As tolerated Stand Alone Forms: Patient Portal Discharge page Care Plan Goals: pain control palliation of cancer symptoms Health Concerns: metastatic gastric cancer with malignant ureteral and biliary strictures urinary tract infection Plan of Treatment: recheck labs on Monday05/03/23 (CMP) and follow up with Dr Cisneros from [facility] within 1 week as well take morphine sulfate sustained-release 15 mg 3x a day for pain control. for breakthrough pain, take oxycodone 5 mg every 4 hours as needed. eat lots of protein. take amoxicillin 500 mg 3x a day for 7 days Please follow up with your primary care doctor within 1 week. Return to the hospital if you experience recurrent or worsening symptoms. Assessment: See Discharge Summary.
--- NOTE | 2023-05-01 09:20 | MHC.CM.PN ---
IMM 05/01/23 Patient is discharged to home today. [facility] will provide home services. The agency has been notified of the discharge today. Patients spouse is providing transportation home.
== END 2023-05-01 11:33 | disposition home health service (06) | DRG 660 ==
LOC: HO.ED 16:16 → HO.EDOVER 16:28 → HO.S3 18:44
PROVIDERS: Registered Nurse Emergency; Student in an Organized Health Care Education/Training Program; Urology; Admitting Provider Hospitalist; Emergency Provider Emergency Medicine; PCP Internal Medicine Medical Oncology; Visit Provider Family Medicine
PROC: 0T788DZ Dilation of Bilateral Ureters with Intraluminal Device, Via Natural or Artificial Opening Endoscopic (ICD-10-PCS; principal; 2023-04-25 16:30)
PROC: 0F793DZ Dilation of Common Bile Duct with Intraluminal Device, Percutaneous Approach (ICD-10-PCS; principal; 2023-04-27 11:00)
DX: N13.6 Pyonephrosis (principal); C16.9 Malignant neoplasm of stomach, unspecified; C78.89 Secondary malignant neoplasm of other digestive organs; Z68.1 Body mass index [BMI] 19.9 or less, adult; B95.2 Enterococcus as the cause of diseases classified elsewhere; E11.65 Type 2 diabetes mellitus with hyperglycemia; E86.0 Dehydration; G89.3 Neoplasm related pain (acute) (chronic); R62.7 Adult failure to thrive; I10 Essential (primary) hypertension; Z66 Do not resuscitate; Z79.84 Long term (current) use of oral hypoglycemic drugs; Z79.899 Other long term (current) drug therapy
CPT/HCPCS: 36415; 36598; 37238; 47538; 80053; 81001; 82248; 82947; 85007; 85025; 85027; 85610; 87040; 87086; 87088; 87186; 97161; 99152; 99153; 99285; C1725; C1758; C1769; C1874; C2617; J0290; J0696; J1642; J1650; J2250; J2270; J2371; J2405; J2704; J3010; J7120; Q9967

== ENCOUNTER 2023-04-24 16:15 | Outpatient (BNV) | payer MEDICARE, SELFPAY | END 2023-04-27 11:00 | PROVIDERS: Admitting Provider Hospitalist; Emergency Provider Emergency Medicine; PCP Internal Medicine Medical Oncology; Visit Provider Student in an Organized Health Care Education/Training Program | DX: C24.9 Malignant neoplasm of biliary tract, unspecified (principal) | CPT/HCPCS: 47538; 99152 ==

== ENCOUNTER 2023-04-24 16:15 | Outpatient (BNV) | payer MEDICARE, SELFPAY | END 2023-04-25 14:50 | PROVIDERS: Admitting Provider Hospitalist; Emergency Provider Emergency Medicine; PCP Internal Medicine Medical Oncology; Visit Provider Radiology Vascular & Interventional Radiology | DX: Z96.89 Presence of other specified functional implants (principal); C16.9 Malignant neoplasm of stomach, unspecified | CPT/HCPCS: 36598 ==

== ENCOUNTER → 2023-04-24 16:15 | Outpatient (BNV) | payer MEDICARE, SELFPAY | PROVIDERS: Admitting Provider Hospitalist; Emergency Provider Emergency Medicine; PCP Internal Medicine Medical Oncology; Visit Provider Hospitalist | DX: C16.9 Malignant neoplasm of stomach, unspecified (principal); N13.30 Unspecified hydronephrosis; K83.1 Obstruction of bile duct; C80.1 Malignant (primary) neoplasm, unspecified; G89.3 Neoplasm related pain (acute) (chronic); N39.0 Urinary tract infection, site not specified | CPT/HCPCS: 99222; 99223; 99232; 99233; 99239; G0180 ==

== ENCOUNTER → 2023-04-24 16:15 | Outpatient (BNV) | payer MEDICARE, SELFPAY | PROVIDERS: Admitting Provider Hospitalist; Emergency Provider Emergency Medicine; PCP Internal Medicine Medical Oncology; Visit Provider Internal Medicine Medical Oncology | DX: C16.9 Malignant neoplasm of stomach, unspecified (principal) | CPT/HCPCS: 99222 ==

== ENCOUNTER → 2023-04-24 16:15 | Outpatient (BNV) | payer MEDICARE, SELFPAY | PROVIDERS: Admitting Provider Hospitalist; Emergency Provider Emergency Medicine; PCP Internal Medicine Medical Oncology; Visit Provider Urology | DX: N39.0 Urinary tract infection, site not specified (principal); N13.30 Unspecified hydronephrosis; Z93.6 Other artificial openings of urinary tract status | CPT/HCPCS: 50389; 52332; 74420; 99222 ==

== ENCOUNTER 2023-05-16 09:00 | Outpatient (RCR) | payer MEDICARE, OTHER, SELFPAY ==
[2020-05-11 07:50] VITALS: BP 166/73; PULSE 81; RESP 18; TEMP 36.2; O2SAT 100; BMI 24.0
--- NOTE | 2020-05-11 08:37 | P.CNHO_ITS ---
Subjective - Subjective Patient: new to practice Consult date: 05/11/20 Requesting Physician: Donnie Primary Care Provider: Zachary Clark MD Medical Summary: DIAGNOSIS: GASTRIC CARCINOMA. HPI - Consult Narrative Narrative: Sheryl Espinoza is a pleasant 64 year old lady who was admitted to the hospital back towards the end of February, with symptoms of acute diverticulitis and UTI. She had presented with 3 days history of left flank pain and dysuria. Abdominal pain was accompanied by decreased appetite nausea and 1 episode of vomiting on 02/27. CT scan of the abdomen revealed: 1.Short segment mural thickening and pericolonic infiltrative changes in the proximal descending colon most consistent with acute diverticulitis or short segment colitis. 2. Mild left pelvo- caliectasis, without obstructing abnormality could be secondary to left ureteropelvic junction stenosis. Left renal cyst demonstrated benign features. Nonobstructing right upper pole intrarenal calculus. 3. mild free fluid in the pelvis is presumed secondary to colonic findings. 4. Very small hiatus hernia. Patient was started on IV antibiotics and admitted. In addition she was noted to have a urinary tract infection. Blood cultures showed Gram-negative rods, likely bacteremia from the UTI. She did note improvement from abdominal pain from 10/10 to 4/10 the following day. She also complained of heartburn and odynophagia of for a few days. She was seen by GI. Recommendation was to continue IV antibiotics until abdominal pain improves. Start oral omeprazole for heartburn and odynophagia. To be scheduled for an upper endoscopy and colonoscopy, in 5-6 weeks time, after resolution of the diverticulitis. This was done on 04/24. Pathology revealed: Stomach body biopsy: Poorly differentiated carcinoma. Morphology and immunophenotype are not 100% specific but raise the possibility of metastatic lobular carcinoma of the breast. Other primary sources include gastric and other upper GI locations. She is now here for further recommendations. ROS: She denies easy fatigability. Her appetite is good. She has lost some weight. One hundred fifty down to 135 lb. Denies headache no dizziness. No chest pain or trouble breathing. No cough nor shortness of breath no chest pain. She had some dyspepsia type symptoms when she was in house. The omeprazole has taken care of these. Occasional cramping prior to bowel movement. Denies diarrhea. Denies gross blood in the stools. She never had a previous colonoscopy. She had recent UTI symptoms. These have resolved. She has arthritis involving her knees. Denies any focal weakness. No depression/anxiety. Family history: Dad had pancreatic cancer at the age of 67. Mom had non-Hodgkin's lymphoma. 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 She has 3 children. She smoked as a teenager. She rarely drinks. Review of Systems - Constitutional Reports system reviewed and no additional complaints, except as documented, Denies fatigue - Eyes Reports system reviewed and no additional complaints, except as documented - ENT Reports system reviewed and no additional complaints, except as documented - Cardiovascular Reports system reviewed and no additional complaints, except as documented - Respiratory Reports no additional respiratory complaints - Gastrointestinal Reports system reviewed and no additional complaints, except as documented - Genitourinary Reports no additional female genitourinary complaints - Musculoskeletal Reports system reviewed and no additional complaints, except as documented - Integumentary/Breasts Skin/Breast: Reports no additional skin complaints - Neurologic Reports system reviewed and no additional complaints, except as documented - Psychiatric Reports system reviewed and no additional complaints, except as documented - Endocrine Reports no additional endocrine complaints - Hematologic/Lymphatic Reports system reviewed and no additional complaints, except as documented - Allergic/Immunologic Reports system reviewed and no additional complaints, except as documented PMFSH Medical History: Medical History (Last Updated 05/14/20 @ 19:38 by Master Fields MD) Diabetes History of cellulitis Hx of diverticulitis of colon Lab test negative for COVID-19 virus Functional capacity: independent ambulation Patient : No Family History: Family History (Last Updated 05/11/20 @ 08:02 by Laquita Gaytan) Father Pancreatic cancer Mother NHL (non-Hodgkin's lymphoma) Maternal Grandfather Prostate cancer Maternal Grandmother Diabetes Heart disease Paternal Grandfather Diabetes Son Asthma Surgical History: Surgical History (Last Updated 05/14/20 @ 13:21 by PARTH Monzon) H/O tubal ligation History of esophagogastroduodenoscopy (EGD) Hx of appendectomy Hx of colonoscopy Hx of tonsillectomy S/P cholecystectomy Onset Date: ~1988 S/P right knee arthroscopy Onset Date: ~2002 Smoking status: Never smoker Home Medications and Allergies Home Medications Medication Instructions Recorded Confirmed Type multivitamin 1 tab PO DAILY 05/11/20 05/14/20 History Allergies Allergy/AdvReac Type Severity Reaction Status Date / Time meperidine [From Demerol] Allergy Severe Swelling Verified 04/20/20 10:58 Physical Exam Vital signs: Vital Signs Temp 97.2 F 05/11/20 07:50 Pulse 81 05/11/20 07:50 Resp 18 05/11/20 07:50 BP 166/73 H 05/11/20 07:50 Pulse Ox 100 05/11/20 07:50 Intake & Output 05/10/20 05/11/20 05/11/20 18:59 06:59 18:59 Other: Weight 63.4 kg Weight 63.4 kg - Constitutional Present: no acute distress - Routine HEENT Exam Head: Present: normal inspection ENT: Present: mucous membranes moist - Routine Neck Exam Present: supple - Routine Cardiovascular Exam Cardiovascular: Present: RRR, S1, S2 - Routine Abdominal Exam Present: soft, nontender - Routine Rectal Exam Patient deferred: digital exam - Routine Skin Exam Present: intact - Routine Neurological Exam Present: alert, oriented X3, vision grossly intact - Detailed Neurological Exam: Coma Scale Eye Opening: Spontaneous (4) Verbal Response: Oriented (5) Motor Response: Obeys commands (6) Clarinda Coma Scale Total: 15 - Routine Psychiatric Exam Present: normal affect Hem/Onc Consult Result - Labs CBC & Chem 7: 05/11/20 09:12 05/11/20 09:12 Assessment and Plan (1) Gastric cancer Status: Inactive This is a pleasant 64-year-old lady with a history of diabetes and divertic ulosis. She had epigastric pain off and on for a few months. She tells me she had GERD symptoms however she stopped eating she sweets and those resolved. This was about 13 years ago. She was started on omeprazole recently which has been helping. Back in February she was admitted with a bout of diverticulitis. Subsequently an upper endoscopy and colonoscopy was arranged. This was done on 04/[address] Fields. Colonoscopy was negative however upper endoscopy revealed: Poorly differentiated carcinoma. Possibility of metastatic lobular carcinoma of the breast was raised. Her breast exam was normal however, she tells me she has not had a mammogram in about 20 years. As per NCCN guidelines workup for gastric carcinoma that is recommended includes: PET scan. Endoscopic ultrasound to determine if disease is early versus locally advanced stage. PLAN: She was sent over to the [facility] to have a mammogram: No mammographic evidence of malignancy. Will proceed with a PET scan for staging. Will request endoscopic ultrasound for exact pathological staging. This will be scheduled at [facility]. I will check baseline labs, including the tumor markers, today: CEA 5.1, Ca 27.29 103. She will return in a couple of weeks for a follow-up visit. Will make treatment plans in the light of above workup. Thank you, CC: Dr. Clark. Dr. Fields. Dr. De Leon.
[2020-05-11 09:14] LABS: MANUAL DIFF FLAG NO
--- NOTE | 2020-05-11 09:28 | MHC.HEMONCMA ---
Patient came in for a consult of gastic cancer, she states that she is doing well, keeps having flares from the diverticulitis. Dr Cisneros would like to see her in 2 weeks for a follow up. Dr Cisneros would like for her to have a PET scan, an endoscopic ultrasound which are only done at [facility], and she is going to get a mammogram since she has not ever had one.
[2020-05-11 09:49] LABS: Basophils Percent Auto 0.2 % (0-2); Eosinophils Absolute Auto 0.1 X10*3/uL (0.0-0.4); Eosinophils Percent Auto 1.6 % (0-4); Hematocrit 36.7 % (37-47); Hemoglobin 11.8 g/dl (12.0-16.0); Lymphocytes Absolute Auto 1.3 X10*3/uL (1.2-4.9); Lymphocytes Percent Auto 30.5 % (20-40); Mean Corpuscular HGB Conc 32.2 g/dl (31.0-35.0); Mean Corpuscular Hemoglobin 29.6 pg (27.0-33.0); Mean Platelet Volume 10.2 fL (9.4-12.3); Monocytes Absolute Auto 0.2 X10*3/uL (0.1-1.2); Monocytes Percent Auto 5.6 % (2-11); Neutrophils Absolute Auto 2.7 X10*3/uL (2.0-8.3); Neutrophils Percent Auto 62.1 % (45-73); Platelet Count 189 X10*3/uL (160-400); Red Blood Count 3.99 X10*6/uL (4.20-5.50); Red Cell Distribution Width 12.8 % (11.0-16.0); White Blood Count 4.3 X10*3/uL (4.8-10.8)
--- NOTE | 2020-05-11 10:00 | MHC.HEMONC ---
Mammogram - Screening Mammogram ordered by Dr. Cisneros, placed in Order Senior Hardware Engineer, and confirmed w centralized scheduling. Dr. Cisneros sent pt across the street to have completed today. Recent gastric bx denoting poorly differentiated carcinoma. Per pt. never had mammogram in the past. GI Consult - Called into [facility] GI group, spoke w Shorty in call center @ [phone] w request: pt needs to be seen by GI for endoscopic US - gastric [place] [facility] [place] consistent w poorly differentiated carcinoma. Shorty tells me to fax all pertinent info to [facility] @ [phone] to ATTN: GI nurses. - this was completed. Shorty states I should here back w date w/in 48 hours. Pt aware of this plan.
[2020-05-11 10:10] LABS: Alanine Aminotransferase 14 U/L (0-31); Albumin Level 4.6 g/dL (3.5-5.0); Alkaline Phosphatase 89 U/L (39-117); Anion Gap 12 (12-20); Aspartate Amino Transferase 16 U/L (5-31); Bilirubin Total 0.4 mg/dL (0.0-1.0); Blood Urea Nitrogen 10 mg/dL (9-16); Calcium 9.8 mg/dL (8.4-10.2); Carbon Dioxide 32 mmol/L (22-29); Chloride 99 mmol/L (96-108); Creatinine Clr Calc Pharmacy 64.5; Estimated Glomerular Filt Rate > 60; Glucose Random 334 mg/dL (60-115); Potassium 4.5 mmol/l (3.3-5.1); Sodium 138 mmol/L (135-145); Total Protein 7.3 g/dL (6.5-8.0)
--- NOTE | 2020-05-11 14:25 | MHC.HEMONCSW ---
PA PET SCAN WENT TO [facility] MEDICAL REVIEW. CASE# [id number] WAIT DECISION.
--- NOTE | 2020-05-11 15:04 | MHC.HEMONCSW ---
PATIENT IS SEEN IN CONSULT ACCOMPANIED BY . A/OX4, ABLE TO MAKE NEEDS KNOWN, INDEPENDENT. DIAGNOSIS IS STOMACH CANCER, MEDICAL WORK UP CONTINUES. PREVIOUSLY HEALTHCARE PROXY COMPLETED WHICH WAS HER . BEHAVIOR IS CALM, SOFT SPOKEN, IS WORRIED ABOUT ILLNESS IS . PET SCAN PA WENT TO [facility] CLINICAL REVIEW, WAIT DECISION. 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 PATIENT SENT IMMEDIATELY FOR A MAMMO. DENIES PAST/PRESENT MENTAL ILLNESS AND SUBSTANCE ABUSE. HAS 3 GROWN SON, GOOD SUPPORT SYSTEM. DENIES BEING [employer] BUT MENTIONED OTHERWISE. REASSURANCE, EDUCATION, GUIDANCE AND SUPPORT PROVIDED. WILL FOLLOW FOR CONTINUITY OF CARE.
--- NOTE | 2020-05-12 09:02 | MHC.HEMONCSW ---
A# [id number] FOR [facility] PET SCAN. FAXED MD ORDER/CLINICALS TO [facility] FOR SCAN ON 05/19/20. THEY WILL CALL TO SCHEDULE PATIENT.
[2020-05-12 11:48] LABS: CA 27.29 103 U/mL (<38)
--- NOTE | 2020-05-14 16:54 | MHC.HEMONC ---
GI Consult - T/C to [facility] GI to f/up on original 05/11/20 call requesting Consult/appt for Endoscopic US - Spoke mike Proctor at front office assistant. She tells me she spoke mike Islas, RN and that records were received by them and they are working on review/scheduling pt tima. Will await call. Pt notified to answer calls of unknown numbers in case it is them. Agrees to POC. 05/11/20-Original call here ---> Called into [facility] GI group, spoke mike Oro in call center @ [phone] w request: pt needs to be seen by GI for endoscopic US - [place] [facility] [place] consistent w poorly differentiated carcinoma. Shorty tells me to fax all pertinent info to [facility] @ [phone] to ATTN: GI nurses. - this was completed. Shorty states I should here back w date w/in 48 hours. Pt aware of this plan. See previous note 05/11 for details.
--- NOTE | 2020-05-20 11:42 | MHC.HEMONCSW ---
VERIFIED WITH SVEN MATA THAT PATIENT HAS APPT. WITH [facility] ON 05/29/20 8:45AM.
--- NOTE | 2020-05-25 09:44 | MHC.HEMONCMA ---
Xiomara from Dr Crisostomo's office called, they stated that they do in fact take her insurance, it is just out of network so the patient would have a higher copay. I called and spoke with the patient, I let her know that she will have a higher copay, she is wondering how much. I tried to call the office, but they are closed due to the holiday. I let the patient know and she is ok with waiting until tomorrow.
--- NOTE | 2020-05-29 10:51 | MHC.HEMONCMA ---
Spoke with Dr Cisneros, I let her know that [facility] keeps going back and forth with their problems with the insurance. Dr Cisneros spoke with them and let them, they told her that she just needs a referral from her PCP for an out of network office. They will obtain both referrals for both the surgeon and Gasto. I called and spoke with the patient and let her know that if she does not hear back from them by Monday to call me.
--- NOTE | 2020-05-29 15:39 | MHC.HEMONC ---
[facility] called and said they haven't received referral (out of network) for pt to to be seen by GI and to have endoscopy. They are also looking for PET. I will fax PET to them and I told them Dr Cisneros has requested referral from Dr Clark who is her PCP. Dr Clark will make sure referral gets faxed. Leigh, at his office is the occupational therapy specialist and Dr Cisneros spoke with her this morning.
[2020-06-02 08:53] VITALS: BP 160/76; PULSE 76; RESP 18; TEMP 36.1; O2SAT 100; BMI 23.8
--- NOTE | 2020-06-02 09:50 | MHC.HEMONCMA ---
Spoke with [facility], they received the referral and are working on getting the patient in for the appt. [facility] will contact the patient for the appts, and they will also fax over a sheet with her appt times and dates. I let the patient know, and told her that if she does not hear back from them on to call me. Patient understands and agrees with the plan.
[2020-06-02 09:57] LABS: MANUAL DIFF FLAG NO
[2020-06-02 10:04] LABS: Basophils Percent Auto 0.6 % (0-2); Eosinophils Absolute Auto 0.1 X10*3/uL (0.0-0.4); Eosinophils Percent Auto 1.7 % (0-4); Hematocrit 36.7 % (37-47); Hemoglobin 12.1 g/dl (12.0-16.0); Imm Gran Abs Auto 0.01 X10*3/uL (0.00-0.03); Imm Gran Pct Auto 0.3 % (0.0-0.4); Lymphocytes Absolute Auto 1.2 X10*3/uL (1.2-4.9); Lymphocytes Percent Auto 32.5 % (20-40); Mean Corpuscular Hemoglobin 30.3 pg (27.0-33.0); Mean Corpuscular Volume 91.8 fL (80-98); Mean Platelet Volume 10.2 fL (9.4-12.3); Monocytes Absolute Auto 0.2 X10*3/uL (0.1-1.2); Monocytes Percent Auto 5.1 % (2-11); Neutrophils Absolute Auto 2.1 X10*3/uL (2.0-8.3); Neutrophils Percent Auto 59.8 % (45-73); Platelet Count 161 X10*3/uL (160-400); Red Cell Distribution Width 12.6 % (11.0-16.0); White Blood Count 3.5 X10*3/uL (4.8-10.8)
[2020-06-02 10:10] LABS: Prothrombin Time 11.7 SEC (10.8-13.0)
[2020-06-02 10:23] LABS: Alanine Aminotransferase 13 U/L (0-31); Albumin Level 4.6 g/dL (3.5-5.0); Alkaline Phosphatase 90 U/L (39-117); Anion Gap 11 (12-20); Aspartate Amino Transferase 17 U/L (5-31); Bilirubin Total 0.6 mg/dL (0.0-1.0); Blood Urea Nitrogen 9 mg/dL (9-16); Calcium 9.7 mg/dL (8.4-10.2); Carbon Dioxide 31 mmol/L (22-29); Chloride 102 mmol/L (96-108); Creatinine Clr Calc Pharmacy 60.5; Estimated Glomerular Filt Rate > 60; Glucose Random 306 mg/dL (60-115); Potassium 4.2 mmol/l (3.3-5.1); Sodium 140 mmol/L (135-145); Total Protein 7.3 g/dL (6.5-8.0)
--- NOTE | 2020-06-02 11:12 | P.PNHO_ITS ---
Medical Summary - Medical Summary Date of Service: 06/02/20 Medical Summary: DIAGNOSIS: GASTRIC CARCINOMA. Interval History Interval history: Sheryl Espinoza is a pleasant 64 year old lady here for a follow-up visit. She is feeling about the same. She has noticed stabbing pain in her right side, 2-3 times couple days ago. It radiated to under the armpit. Level was 8 on 1-10 scale. It happened while she was sitting down. Denies any chest pain or trouble with breathing. She does work out every day. She denies abdominal pain and nausea. She had dyspepsia but omeprazole has been helping. She denies diarrhea. Denies gross blood in the stools. She enjoys a good appetite. She has lost weight. Previous history: She was admitted to the hospital back towards the end of February, with symptoms of acute diverticulitis and UTI. She had presented with 3 days history of left flank pain and dysuria. Abdominal pain was accompanied by decreased appetite nausea and 1 episode of vomiting on 02/27. CT scan of the abdomen revealed: 1.Short segment mural thickening and pericolonic infiltrative changes in the proximal descending colon most consistent with acute diverticulitis or short segment colitis. 2. Mild left pelvo- caliectasis, without obstructing abnormality could be secondary to left ureteropelvic junction stenosis. Left renal cyst demonstrated benign features. Nonobstructing right upper pole intrarenal calculus. 3. mild free fluid in the pelvis is presumed secondary to colonic findings. 4. Very small hiatus hernia. Patient was started on IV antibiotics and admitted. In addition she was noted to have a urinary tract infection. Blood cultures showed Gram-negative rods, likely bacteremia from the UTI. She did note improvement from abdominal pain from 10/10 to 4/10 the following day. She also complained of heartburn and odynophagia of for a few days. She was seen by GI. Recommendation was to continue IV antibiotics until abdominal pain improves. Start oral omeprazole for heartburn and odynophagia. To be scheduled for an upper endoscopy and colonoscopy, in 5-6 weeks time, after resolution of the diverticulitis. This was done on 04/24. Pathology revealed: Stomach body biopsy: Poorly differentiated carcinoma. Morphology and immunophenotype are not 100% specific but raise the possibility of metastatic lobular carcinoma of the breast. Other primary sources include gastric and other upper GI locations. She is now here for further recommendations. ROS: She denies easy fatigability. Her appetite is good. She has lost some weight. One hundred fifty down to 135 lb. Denies headache no dizziness. No chest pain or trouble breathing. No cough nor shortness of breath no chest pain. She had some dyspepsia type symptoms when she was in house. The omeprazole has taken care of these. Occasional cramping prior to bowel movement. Denies diarrhea. Denies gross blood in the stools. She never had a previous colonoscopy. She had recent UTI symptoms. These have resolved. She has arthritis involving her knees. Denies any focal weakness. No depression/anxiety. Family history: Dad had pancreatic cancer at the age of 67. Mom had non-Hodgkin's lymphoma. 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 She has 3 children. She smoked as a teenager. She rarely drinks. Review of Systems - Constitutional Reports no additional constitutional complaints - Eyes Reports no additional eye complaints - ENT Reports no additional ear, nose, mouth, and throat complaints - Cardiovascular Reports no additional cardiovascular complaints - Respiratory Reports no additional respiratory complaints - Gastrointestinal Reports no additional gastrointestinal complaints - Genitourinary Reports no additional female genitourinary complaints - Musculoskeletal Reports no additional musculoskeletal complaints - Integumentary/Breasts Skin/Breast: Reports no additional skin complaints - Neurologic Reports no additional neurologic complaints - Psychiatric Reports no additional psychiatric complaints - Endocrine Reports no additional endocrine complaints - Hematologic/Lymphatic Reports no additional hematologic/lymphatic complaints - Allergic/Immunologic Reports no additional allergic/immunologic complaints [facility] Medical History: Medical History (Last Updated 05/14/20 @ 19:38 by Master Fields MD) Diabetes History of cellulitis Hx of diverticulitis of colon Lab test negative for COVID-19 virus Functional capacity: independent ambulation Patient : No Family History: Family History (Last Updated 05/11/20 @ 08:02 by Laquita Gaytan) Father Pancreatic cancer Mother NHL (non-Hodgkin's lymphoma) Maternal Grandfather Prostate cancer Maternal Grandmother Diabetes Heart disease Paternal Grandfather Diabetes Son Asthma Surgical History: Surgical History (Last Updated 05/14/20 @ 13:21 by PARTH Monzon) H/O tubal ligation History of esophagogastroduodenoscopy (EGD) Hx of appendectomy Hx of colonoscopy Hx of tonsillectomy S/P cholecystectomy Onset Date: ~1988 S/P right knee arthroscopy Onset Date: ~2002 Social History: Social History (Last Updated 05/14/20 @ 13:22 by PARTH Monzon) Living Situation History: Household Members: Spouse Household Members: Children Housing: House Are you a primary associate director career services to a significant other at home: No Alcohol History: Alcohol intake: current Alcohol History Details: Alcohol intake frequency: holiday/special occasion Tobacco History: Smoking Status: Never smoker Second Hand Smoke Exposure: No Substance Use History: Use of substances other than those prescribed or required for medical reasons : No Domestic Abuse History: Have you been hit, kicked, punched, or otherwise hurt by someone within the past year? 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 Smoking status: Never smoker Home Medications and Allergies Home Medications Medication Instructions Recorded Confirmed Type multivitamin 1 tab PO DAILY 05/11/20 05/14/20 History Allergies Allergy/AdvReac Type Severity Reaction Status Date / Time meperidine [From Demerol] Allergy Severe Swelling Verified 04/20/20 10:58 Exam Vital signs: Vital Signs Temp 97.0 F 06/02/20 08:53 Pulse 76 06/02/20 08:53 Resp 18 06/02/20 08:53 BP 160/76 H 06/02/20 08:53 Pulse Ox 100 06/02/20 08:53 Intake & Output 06/01/20 06/02/20 06/02/20 18:59 06:59 18:59 Other: Weight 63 kg Weight 63 kg Body Mass Index 23.8 - Constitutional Present: no acute distress - Routine HEENT Exam Head: Present: normal inspection Eye: Present: normal appearance ENT: Present: mucous membranes moist - Routine Neck Exam Present: full ROM - Routine Respiratory Exam Present: CTAB - Routine Cardiovascular Exam Cardiovascular: Present: RRR, S1, S2 - Routine Abdominal Exam Present: soft, nontender - Routine Rectal Exam Patient deferred: digital exam - Routine Extremities Exam Present: nontender - Routine Back/Spine/Pelvis Exam Back/Spine: Present: full ROM - Routine Skin Exam Present: intact - Routine Neurological Exam Present: alert, oriented X3, vision grossly intact - Detailed Neurological Exam: Coma Scale Eye Opening: Spontaneous (4) - Routine Psychiatric Exam Present: normal affect Data - Labs CBC & Chem 7: 06/02/20 09:52 06/02/20 09:52 Labs: 05/11/20 09:12 CA 27.29 Routine Carcinoembryonic Antigen Routine Complete Blood Count Auto Diff Routine Comprehensive Met. Panel Routine 06/02/20 09:52 CMP [Comprehensive Met. Panel] Routine Complete Blood Count Auto Diff Routine Prothrombin Time INR Routine Laboratory Last Values WBC 3.5 X10*3/uL (4.8-10.8) L 06/02/20 09:52 RBC 4.00 X10*6/uL (4.20-5.50) L 06/02/20 09:52 Hgb 12.1 g/dl (12.0-16.0) 06/02/20 09:52 Hct 36.7 % (37-47) L 06/02/20 09:52 MCV 91.8 fL (80-98) 06/02/20 09:52 MCH 30.3 pg (27.0-33.0) 06/02/20 09:52 MCHC 33.0 g/dl (31.0-35.0) 06/02/20 09:52 RDW 12.6 % (11.0-16.0) 06/02/20 09:52 Plt Count 161 X10*3/uL (160-400) 06/02/20 09:52 MPV 10.2 fL (9.4-12.3) 06/02/20 09:52 Immature Gran % (Auto) 0.3 % (0.0-0.4) 06/02/20 09:52 Neut % (Auto) 59.8 % (45-73) 06/02/20 09:52 Lymph % (Auto) 32.5 % (20-40) 06/02/20 09:52 Gaines % (Auto) 5.1 % (2-11) 06/02/20 09:52 Eos % (Auto) 1.7 % (0-4) 06/02/20 09:52 Baso % (Auto) 0.6 % (0-2) 06/02/20 09:52 Lymph # (Auto) 1.2 X10*3/uL (1.2-4.9) 06/02/20 09:52 Gaines # (Auto) 0.2 X10*3/uL (0.1-1.2) 06/02/20 09:52 Eos # (Auto) 0.1 X10*3/uL (0.0-0.4) 06/02/20 09:52 Baso # (Auto) 0.0 X10*3/uL (0.0-0.2) 06/02/20 09:52 Abs Immat Gran (auto) 0.01 X10*3/uL (0.00-0.03) 06/02/20 09:52 Absolute Neuts (auto) 2.1 X10*3/uL (2.0-8.3) 06/02/20 09:52 Absolute Nucleated RBC 0.000 X10*3/uL (0.0-0.012) 06/02/20 09:52 Nucleated RBC % (auto) 0.0 /100WBC (0.0-0.2) 06/02/20 09:52 PT 11.7 SEC (10.8-13.0) 06/02/20 09:52 INR 1.0 (0.9-1.1) 06/02/20 09:52 Sodium 140 mmol/L (135-145) 06/02/20 09:52 Potassium 4.2 mmol/l (3.3-5.1) 06/02/20 09:52 Chloride 102 mmol/L (96-108) 06/02/20 09:52 Carbon Dioxide 31 mmol/L (22-29) H 06/02/20 09:52 Anion Gap 11 (12-20) L 06/02/20 09:52 BUN 9 mg/dL (9-16) 06/02/20 09:52 Creatinine 0.81 mg/dL (0.5-1.4) 06/02/20 09:52 Estim Creat Clear Calc 60.5 06/02/20 09:52 Estimated GFR > 60 06/02/20 09:52 Random Glucose 306 mg/dL (60-115) H 06/02/20 09:52 Calcium 9.7 mg/dL (8.4-10.2) 06/02/20 09:52 Total Bilirubin 0.6 mg/dL (0.0-1.0) 06/02/20 09:52 AST 17 U/L (5-31) 06/02/20 09:52 ALT 13 U/L (0-31) 06/02/20 09:52 Alkaline Phosphatase 90 U/L (39-117) 06/02/20 09:52 Total Protein 7.3 g/dL (6.5-8.0) 06/02/20 09:52 Albumin 4.6 g/dL (3.5-5.0) 06/02/20 09:52 Carcinoembryonic Ag 5.10 mg/mL 05/11/20 09:12 CA 27-29 103 U/mL (<38) H 05/11/20 09:12 Progress Note: A/P (1) Gastric cancer Status: Inactive (2) Gastric cancer Status: Acute Assessment and plan: This is a pleasant 64-year-old lady with a history of diabetes and diverticulosis. She had epigastric pain off and on for a few months. She tells me she had GERD symptoms however she stopped eating she sweets and those resolved. This was about 13 years ago. She was started on omeprazole recently which has been helping. Back in February she was admitted with a bout of diverticulitis. Subsequently an upper endoscopy and colonoscopy was arranged. This was done on 04/[address] Fields. Colonoscopy was negative however upper endoscopy revealed: Poorly differentiated carcinoma. Possibility of metastatic lobular carcinoma of the breast was raised. Her breast exam was normal however, she tells me she has not had a mammogram in about 20 years. As per NCCN guidelines workup for gastric carcinoma that is recommended includes: PET scan. Endoscopic ultrasound to determine if disease is early versus locally advanced stage. [facility]: No mammographic evidence of malignancy. I will checked baseline labs, including the tumor markers: CEA 5.1, Ca 27.29 103. l proceeded with a PET scan for staging. This revealed: No foci of abnormal FDG activity are visualized. There are no abnormalities visualized suspicious for metastatic or other malignant lesions. PLAN: l requested endoscopic ultrasound for exact pathological staging. This will be scheduled at [facility]. She needed an out of planned referral which has been sent and approved by insurance. Dr. Tolentino's office will be calling her to set up the appointment. Also set up an appointment with Dr. Rajan to consider surgery by minimally invasive method. She will return in a couple of weeks for a follow-up visit. Will make treatment plans in the light of above workup. Thank you, CC: Dr. Clark. Dr. Fields. Dr. De Leon. Dr. Rajan - Time Spent With Patient Total time spent is greater than 50% in coordination of care (as documented) at patient's floor/unit and/or counseling patient: 25 - 35 minutes
--- NOTE | 2020-06-02 12:44 | MHC.HEMONC ---
Pt here for follow up with Dr Cisneros. 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 Pt states she has been feeling pain in left shoulder, to axilla, neck, and back. Also states has bump in right axilla. US ordered for lump, and pt referred to PT for lymphedema sleeve. Appointment scheduled in PT for Thursday 06/08, and pt will be called with appointment for US. Follow up with Dr Cisneros scheduled for 6 months.
--- NOTE | 2020-06-02 12:49 | MHC.HEMONC ---
Pt here for follow up with Dr Cisneros. States is feeling well, eating ok. Pt's insurance has approved for [place] [facility] [place] and referral called to Dr De Leon and Dr Crisostomo. Next follow up with Dr Cisneros scheduled for 2 weeks.
--- NOTE | 2020-06-02 16:35 | MHC.HEMONCSW ---
PATIENT HERE IN FOLLOW UP. REFERRAL MADE TO [facility]. DENIES STRESS, NO COMPLAINTS AT THIS TIME. PATIENT IS AWARE OF MY AVAILABILITY.
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
[2020-06-16 08:35] LABS: MANUAL DIFF FLAG NO
[2020-06-16 08:44] LABS: Basophils Percent Auto 0.2 % (0-2); Eosinophils Absolute Auto 0.1 X10*3/uL (0.0-0.4); Eosinophils Percent Auto 1.8 % (0-4); Hematocrit 38.6 % (37-47); Hemoglobin 12.8 g/dl (12.0-16.0); Lymphocytes Absolute Auto 1.5 X10*3/uL (1.2-4.9); Lymphocytes Percent Auto 33.9 % (20-40); Mean Corpuscular HGB Conc 33.2 g/dl (31.0-35.0); Mean Corpuscular Hemoglobin 30.5 pg (27.0-33.0); Mean Corpuscular Volume 92.1 fL (80-98); Mean Platelet Volume 9.9 fL (9.4-12.3); Monocytes Absolute Auto 0.2 X10*3/uL (0.1-1.2); Monocytes Percent Auto 5.3 % (2-11); Neutrophils Absolute Auto 2.6 X10*3/uL (2.0-8.3); Neutrophils Percent Auto 58.8 % (45-73); Platelet Count 175 X10*3/uL (160-400); Red Blood Count 4.19 X10*6/uL (4.20-5.50); Red Cell Distribution Width 12.7 % (11.0-16.0); White Blood Count 4.4 X10*3/uL (4.8-10.8)
[2020-06-16 08:48] VITALS: BP 163/73; PULSE 74; RESP 18; TEMP 36.2; O2SAT 100; BMI 23.8
--- NOTE | 2020-06-16 08:48 | P.PNHO_ITS ---
Medical Summary - Medical Summary Date of Service: 06/20/20 Chief complaint: Follow-up for: Gastric cancer. Medical Summary: DIAGNOSIS: GASTRIC CARCINOMA. Interval History Interval history: Sheryl Espinoza is a pleasant 64 year old lady here for a follow-up visit. She is feeling about the same. She gets a pain in her right side, below the breast, 2-3 times a day. Sometimes it radiates to under the armpit. Level is 8 on 1-10 scale. It happens while she was sitting down. Denies any chest pain or trouble with breathing. She does work out every day. She denies abdominal pain and nausea. She had dyspepsia but omeprazole has been helping. She denies diarrhea. Denies gross blood in the stools. She enjoys a good appetite, however she has noticed that she is unable to eat too much in one sitting. That makes her feel nauseous. It is not too bad. She has lost weight. She is in good spirits. Rest of the review of systems is unremarkable. Previous history: She was admitted to the hospital back towards the end of February, with symptoms of acute diverticulitis and UTI. She had presented with 3 days history of left flank pain and dysuria. Abdominal pain was accompanied by decreased appetite nausea and 1 episode of vomiting on 02/27. CT scan of the abdomen revealed: 1.Short segment mural thickening and pericolonic infiltrative changes in the proximal descending colon most consistent with acute diverticulitis or short segment colitis. 2. Mild left pelvo- caliectasis, without obstructing abnormality could be secondary to left ureteropelvic junction stenosis. Left renal cyst demonstrated benign features. Nonobstructing right upper pole intrarenal calculus. 3. mild free fluid in the pelvis is presumed secondary to colonic findings. 4. Very small hiatus hernia. Patient was started on IV antibiotics and admitted. In addition she was noted to have a urinary tract infection. Blood cultures s howed Gram-negative rods, likely bacteremia from the UTI. She did note improvement from abdominal pain from 10/10 to 4/10 the following day. She also complained of heartburn and odynophagia of for a few days. She was seen by GI. Recommendation was to continue IV antibiotics until abdominal pain improves. Start oral omeprazole for heartburn and odynophagia. To be scheduled for an upper endoscopy and colonoscopy, in 5-6 weeks time, after resolution of the diverticulitis. This was done on 04/24. Pathology revealed: Stomach body biopsy: Poorly differentiated carcinoma. Morphology and immunophenotype are not 100% specific but raise the possibility of metastatic lobular carcinoma of the breast . Other primary sources include gastric and other upper GI locations. She is now here for further recommendations. ROS: She denies easy fatigability. Her appetite is good. She has lost some weight. One hundred fifty down to 135 lb. Denies headache no dizziness. No chest pain or trouble breathing. No cough nor shortness of breath no chest pain. She had some dyspepsia type symptoms when she was in house. The omeprazole has taken care of these. Occasional cramping prior to bowel movement. Denies diarrhea. Denies gross blood in the stools. She never had a previous colonoscopy. She had recent UTI symptoms. These have resolved. She has arthritis involving her knees. Denies any focal weakness. No depression/anxiety. Family history: Dad had pancreatic cancer at the age of 67. Mom had non-Hodgkin's lymphoma. 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 She has 3 children. She smoked as a teenager. She rarely drinks. Review of Systems - Constitutional Reports system reviewed and no additional complaints, except as documented - Eyes Reports system reviewed and no additional complaints, except as documented - ENT Reports system reviewed and no additional complaints, except as documented - Cardiovascular Reports system reviewed and no additional complaints, except as documented - Respiratory Reports no additional respiratory complaints - Gastrointestinal Reports system reviewed and no additional complaints, except as documented, Reports bloating, Reports feeling full early, Reports dyspepsia - Genitourinary Reports no additional female genitourinary complaints - Musculoskeletal Reports system reviewed and no additional complaints, except as documented - Integumentary/Breasts Skin/Breast: Reports no additional skin complaints - Neurologic Reports system reviewed and no additional complaints, except as documented - Psychiatric Reports system reviewed and no additional complaints, except as documented - Endocrine Reports no additional endocrine complaints - Hematologic/Lymphatic Reports system reviewed and no additional complaints, except as documented - Allergic/Immunologic Reports system reviewed and no additional complaints, except as documented [facility] Medical History: Medical History (Last Updated 06/12/20 @ 20:20 by Zachary Clark MD) History of cellulitis Hx of diverticulitis of colon Lab test negative for COVID-19 virus Type 2 diabetes mellitus with hyperglycemia Functional capacity: independent ambulation Patient : No Family History: Family History (Last Updated 05/11/20 @ 08:02 by Laquita Gaytan) Father Pancreatic cancer Mother NHL (non-Hodgkin's lymphoma) Maternal Grandfather Prostate cancer Maternal Grandmother Diabetes Heart disease Paternal Grandfather Diabetes Son Asthma Surgical History: Surgical History (Last Updated 05/14/20 @ 13:21 by PARTH Monzon) H/O tubal ligation History of esophagogastroduodenoscopy (EGD) Hx of appendectomy Hx of colonoscopy Hx of tonsillectomy S/P cholecystectomy Onset Date: ~1988 S/P right knee arthroscopy Onset Date: ~2002 Social History: Social History (Last Updated 06/15/20 @ 16:43 by Zachary Clark MD) Living Situation History: Household Members: Spouse Household Members: Children Housing: House Are you a primary childcare center director to a significant other at home: No Alcohol History: Alcohol intake: current Alcohol History Details: Alcohol intake frequency: holiday/special occasion Tobacco History: Smoking Status: Never smoker Second Hand Smoke Exposure: No Substance Use History: Use of substances other than those prescribed or required for medical reasons : No Domestic Abuse History: Have you been hit, kicked, punched, or otherwise hurt by someone within the past year? 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 Smoking status: Never smoker Oncology Screenings - ECOG Performance Status ECOG Performance Status: 0 Home Medications and Allergies Home Medications Medication Instructions Recorded Confirmed Type multivitamin 1 tab PO DAILY 05/11/20 06/15/20 History Allergies Allergy/AdvReac Type Severity Reaction Status Date / Time meperidine [From Demerol] Allergy Severe Swelling Verified 06/16/20 08:52 Exam Vital signs: Vital Signs Temp 97.0 F 06/02/20 08:53 Pulse 76 06/02/20 08:53 Resp 18 06/02/20 08:53 BP 160/76 H 06/02/20 08:53 Pulse Ox 100 06/02/20 08:53 Weight 63 kg Body Mass Index 23.8 - Constitutional Present: no acute distress - Routine HEENT Exam Head: Present: normal inspection Eye: Present: normal appearance ENT: Present: mucous membranes moist - Routine Neck Exam Present: full ROM - Routine Respiratory Exam Present: CTAB - Routine Cardiovascular Exam Cardiovascular: Present: RRR, S1, S2 - Routine Abdominal Exam Present: soft, nontender - Routine Rectal Exam Patient deferred: digital exam - Routine Extremities Exam Present: nontender - Routine Back/Spine/Pelvis Exam Back/Spine: Present: full ROM - Routine Skin Exam Present: intact - Routine Neurological Exam Present: alert, oriented X3, vision grossly intact - Detailed Neurological Exam: Coma Scale Eye Opening: Spontaneous (4) - Routine Psychiatric Exam Present: normal affect Data - Labs CBC & Chem 7: 06/16/20 08:34 06/16/20 08:34 Labs: 05/11/20 09:12 CA 27.29 Routine Carcinoembryonic Antigen Routine Complete Blood Count Auto Diff Routine Comprehensive Met. Panel Routine 06/02/20 09:52 CMP [Comprehensive Met. Panel] Routine Complete Blood Count Auto Diff Routine Prothrombin Time INR Routine Laboratory Last Values WBC 3.5 X10*3/uL (4.8-10.8) L 06/02/20 09:52 RBC 4.00 X10*6/uL (4.20-5.50) L 06/02/20 09:52 Hgb 12.1 g/dl (12.0-16.0) 06/02/20 09:52 Hct 36.7 % (37-47) L 06/02/20 09:52 MCV 91.8 fL (80-98) 06/02/20 09:52 MCH 30.3 pg (27.0-33.0) 06/02/20 09:52 MCHC 33.0 g/dl (31.0-35.0) 06/02/20 09:52 RDW 12.6 % (11.0-16.0) 06/02/20 09:52 Plt Count 161 X10*3/uL (160-400) 06/02/20 09:52 MPV 10.2 fL (9.4-12.3) 06/02/20 09:52 Immature Gran % (Auto) 0.3 % (0.0-0.4) 06/02/20 09:52 Neut % (Auto) 59.8 % (45-73) 06/02/20 09:52 Lymph % (Auto) 32.5 % (20-40) 06/02/20 09:52 [place] % (Auto) 5.1 % (2-11) 06/02/20 09:52 Eos % (Auto) 1.7 % (0-4) 06/02/20 09:52 Baso % (Auto) 0.6 % (0-2) 06/02/20 09:52 Lymph # (Auto) 1.2 X10*3/uL (1.2-4.9) 06/02/20 09:52 [place] # (Auto) 0.2 X10*3/uL (0.1-1.2) 06/02/20 09:52 Eos # (Auto) 0.1 X10*3/uL (0.0-0.4) 06/02/20 09:52 Baso # (Auto) 0.0 X10*3/uL (0.0-0.2) 06/02/20 09:52 Abs Immat Gran (auto) 0.01 X10*3/uL (0.00-0.03) 06/02/20 09:52 Absolute Neuts (auto) 2.1 X10*3/uL (2.0-8.3) 06/02/20 09:52 Absolute Nucleated RBC 0.000 X10*3/uL (0.0-0.012) 06/02/20 09:52 Nucleated RBC % (auto) 0.0 /100WBC (0.0-0.2) 06/02/20 09:52 PT 11.7 SEC (10.8-13.0) 06/02/20 09:52 INR 1.0 (0.9-1.1) 06/02/20 09:52 Sodium 140 mmol/L (135-145) 06/02/20 09:52 Potassium 4.2 mmol/l (3.3-5.1) 06/02/20 09:52 Chloride 102 mmol/L (96-108) 06/02/20 09:52 Carbon Dioxide 31 mmol/L (22-29) H 06/02/20 09:52 Anion Gap 11 (12-20) L 06/02/20 09:52 BUN 9 mg/dL (9-16) 06/02/20 09:52 Creatinine 0.81 mg/dL (0.5-1.4) 06/02/20 09:52 Estim Creat Clear Calc 60.5 06/02/20 09:52 Estimated GFR > 60 06/02/20 09:52 Random Glucose 306 mg/dL (60-115) H 06/02/20 09:52 Calcium 9.7 mg/dL (8.4-10.2) 06/02/20 09:52 Total Bilirubin 0.6 mg/dL (0.0-1.0) 06/02/20 09:52 AST 17 U/L (5-31) 06/02/20 09:52 ALT 13 U/L (0-31) 06/02/20 09:52 Alkaline Phosphatase 90 U/L (39-117) 06/02/20 09:52 Total Protein 7.3 g/dL (6.5-8.0) 06/02/20 09:52 Albumin 4.6 g/dL (3.5-5.0) 06/02/20 09:52 Carcinoembryonic Ag 5.10 mg/mL 05/11/20 09:12 CA 27-29 103 U/mL (<38) H 05/11/20 09:12 Progress Note: A/P (1) Gastric cancer Status: Inactive (2) Gastric cancer Status: Acute Assessment and plan: This is a pleasant 64-year-old lady with a history of diabetes and diverticulosis. She had epigastric pain, off and on for a few months. She tells me she had GERD symptoms however she stopped eating sweets and those resolved. This was about 13 years ago. She was started on omeprazole recently which has been helping. Back in February she was admitted with a bout of diverticulitis. Subsequently an upper endoscopy and colonoscopy was arranged. This was done on 04/[address] Fields. Colonoscopy was negative however upper endoscopy revealed: Poorly differentiated carcinoma. Possibility of metastatic lobular carcinoma of the breast was raised. Her breast exam was normal however, she tells me she has not had a mammogram in about 20 years. As per NCCN guidelines workup for gastric carcinoma that is recommended includes: 1. PET scan. 2. Endoscopic ultrasound to determine if disease is early versus locally advanced stage. [facility]: No mammographic evidence of malignancy. I will checked baseline labs, including the tumor markers: CEA 5.1, Ca 27.29 103. l proceeded with a PET scan for staging. This revealed: No foci of abnormal FDG activity are visualized. There are no abnormalities visualized suspicious for metastatic or other malignant lesions. PLAN: michael requested endoscopic ultrasound for exact pathological staging. This will be scheduled at [facility]. She needed an out of planned referral which has been sent and approved by insurance. She is scheduled for it on , by Dr. Blanco. An appointment has also been set up with Dr. Rajan, for 06/30, to consider surgery by minimally invasive method. She will return in a month for a follow-up visit. Will make treatment plans in the light of above workup. Thank you, CC: Dr. Clark. Dr. Fields. Dr. De Leon. Dr. Rajan Addendum: I did talk to Dr. Blanco. He gave a very encouraging report. The area of abnormality was very subtle. He took several biopsies. He feels that she would be a surgical candidate. She will be seeing Dr. Rajan in the near future. - Time Spent With Patient Total time spent is greater than 50% in coordination of care (as documented) at patient's floor/unit and/or counseling patient: 25 - 35 minutes
[2020-06-16 09:09] LABS: Alanine Aminotransferase 12 U/L (0-31); Albumin Level 4.7 g/dL (3.5-5.0); Alkaline Phosphatase 92 U/L (39-117); Anion Gap 14 (12-20); Aspartate Amino Transferase 16 U/L (5-31); Bilirubin Total 0.5 mg/dL (0.0-1.0); Blood Urea Nitrogen 12 mg/dL (9-16); Calcium 10.1 mg/dL (8.4-10.2); Carbon Dioxide 30 mmol/L (22-29); Chloride 97 mmol/L (96-108); Creatinine Clr Calc Pharmacy 56.4; Estimated Glomerular Filt Rate > 60; Glucose Random 334 mg/dL (60-115); Potassium 4.2 mmol/L (3.3-5.1); Sodium 137 mmol/L (135-145); Total Protein 7.4 g/dL (6.5-8.0)
--- NOTE | 2020-06-16 09:35 | MHC.HEMONC ---
Exam, patient seeing Dr. Blanco at [facility] today and endoscopic U/S scheduled for 06/18/20. Intial consult booked with Dr. Rajan for 06/30/20 by Laquita Kaur Follow up in 1 month
[2020-06-17 11:07] LABS: CA 27.29 105 U/mL (<38)
--- NOTE | 2020-06-25 14:54 | MHC.HEMONCMA ---
Per Dr Cisneros, patient's endoscopic ultrasound showed with the random biopsies that her cancer is all over her stomach so the course of treatment now is adjuvant chemotherapy and radiation. I called and spoke with [facility] and they state that with her insurance and the type of treatment we are needing it would be best for her to go to [facility] since they are in contract with her insurance directly. I called [facility], they requested her records before they will schedule her. I also told them about [facility] and she states she will call there and get their records too for her file. I faxed over all the records they needed from our office and am awaiting an appt date and time for the patient.
--- NOTE | 2020-07-03 13:50 | HO.HEMONCPA ---
NO PA REQUIRED FOR 5FU,LEUCIVORIN,OXALIPLATIN,&TAXOTERE PER [facility]). MEDS COVER UNDER BUY&BILL
[2020-07-14 09:09] VITALS: BP 142/71; PULSE 80; RESP 18; TEMP 36.6; O2SAT 100; BMI 23.6
[2020-07-14 10:45] LABS: MANUAL DIFF FLAG NO
[2020-07-14 10:49] LABS: Eosinophils Absolute Auto 0.1 X10*3/uL (0.0-0.4); Eosinophils Percent Auto 1.3 % (0-4); Hematocrit 36.3 % (37-47); Imm Gran Abs Auto 0.01 X10*3/uL (0.00-0.03); Imm Gran Pct Auto 0.3 % (0.0-0.4); Lymphocytes Absolute Auto 0.9 X10*3/uL (1.2-4.9); Lymphocytes Percent Auto 24.5 % (20-40); Mean Corpuscular HGB Conc 33.1 g/dl (31.0-35.0); Mean Corpuscular Hemoglobin 30.2 pg (27.0-33.0); Mean Corpuscular Volume 91.4 fL (80-98); Mean Platelet Volume 10.3 fL (9.4-12.3); Monocytes Absolute Auto 0.3 X10*3/uL (0.1-1.2); Monocytes Percent Auto 6.7 % (2-11); Neutrophils Absolute Auto 2.5 X10*3/uL (2.0-8.3); Neutrophils Percent Auto 67.2 % (45-73); Platelet Count 155 X10*3/uL (160-400); Red Blood Count 3.97 X10*6/uL (4.20-5.50); Red Cell Distribution Width 12.5 % (11.0-16.0); White Blood Count 3.7 X10*3/uL (4.8-10.8)
[2020-07-14 11:15] LABS: Alanine Aminotransferase 11 U/L (0-31); Albumin Level 4.5 g/dL (3.5-5.0); Alkaline Phosphatase 79 U/L (39-117); Anion Gap 12 (12-20); Aspartate Amino Transferase 18 U/L (5-31); Bilirubin Total 0.4 mg/dL (0.0-1.0); Blood Urea Nitrogen 13 mg/dL (9-16); Calcium 9.8 mg/dL (8.4-10.2); Carbon Dioxide 27 mmol/L (22-29); Chloride 105 mmol/L (96-108); Creatinine Clr Calc Pharmacy 65.4; Estimated Glomerular Filt Rate > 60; Glucose Random 157 mg/dL (60-115); Potassium 4.3 mmol/L (3.3-5.1); Sodium 140 mmol/L (135-145); Total Protein 7.2 g/dL (6.5-8.0)
--- NOTE | 2020-07-14 11:16 | MHC.HEMONCMA ---
07/14/20 gave cesario garduno patient insurance information. has [facility] but account states workers compensation is primary. patient registration will need to fix information.
--- NOTE | 2020-07-14 15:04 | MHC.HEMONC ---
Pt here for MD agee and chemo teach on Taxotere/Lecovorin/Oxaliplatin and 5FU infusion over 24 hr. She was accompanied by her . I reviewed procedure for chemo administration via port, labs, pre-meds etc. I then explained the common side effects of each drug and when to call Clinic with sx. I will teach chemo pump once she comes for chemo. I answered all of her questions and Dr Cisneros saw pt as well. Labs drawn and are acceptable for treatment in a couple of weeks.
--- NOTE | 2020-07-28 08:50 | HO.HEMONCPA ---
DO NOT GIVE PATIENT EMEND UNTIL WE RECEIVE PA. Submitting for PA today
[2020-07-28 08:57] VITALS: BMI 23.8
[2020-07-28 08:58] VITALS: BP 157/85; PULSE 84; RESP 16; TEMP 36.6; O2SAT 100
[2020-07-28 09:29] LABS: MANUAL DIFF FLAG NO
[2020-07-28 09:31] LABS: Basophils Percent Auto 0.3 % (0-2); Eosinophils Absolute Auto 0.1 X10*3/uL (0.0-0.4); Eosinophils Percent Auto 1.7 % (0-4); Hematocrit 33.2 % (37-47); Hemoglobin 10.9 g/dl (12.0-16.0); Imm Gran Abs Auto 0.02 X10*3/uL (0.00-0.03); Imm Gran Pct Auto 0.6 % (0.0-0.4); Lymphocytes Absolute Auto 1.1 X10*3/uL (1.2-4.9); Lymphocytes Percent Auto 32.4 % (20-40); Mean Corpuscular HGB Conc 32.8 g/dl (31.0-35.0); Mean Corpuscular Hemoglobin 30.1 pg (27.0-33.0); Mean Corpuscular Volume 91.7 fL (80-98); Mean Platelet Volume 10.2 fL (9.4-12.3); Monocytes Absolute Auto 0.2 X10*3/uL (0.1-1.2); Monocytes Percent Auto 6.1 % (2-11); Neutrophils Percent Auto 58.9 % (45-73); Platelet Count 152 X10*3/uL (160-400); Red Blood Count 3.62 X10*6/uL (4.20-5.50); Red Cell Distribution Width 12.7 % (11.0-16.0); White Blood Count 3.4 X10*3/uL (4.8-10.8)
[2020-07-28] MEDS: ondansetron HCL/NS 16 MG/50 ML PIGGYBACK 200 MG IV (09:52)
[2020-07-28 09:57] LABS: Alanine Aminotransferase 9 U/L (0-31); Albumin Level 4.4 g/dL (3.5-5.0); Alkaline Phosphatase 68 U/L (39-117); Anion Gap 14 (12-20); Aspartate Amino Transferase 17 U/L (5-31); Bilirubin Total 0.6 mg/dL (0.0-1.0); Blood Urea Nitrogen 16 mg/dL (9-16); Calcium 9.4 mg/dL (8.4-10.2); Carbon Dioxide 27 mmol/L (22-29); Chloride 104 mmol/L (96-108); Creatinine Clr Calc Pharmacy 71.1; Estimated Glomerular Filt Rate > 60; Glucose Random 136 mg/dL (60-115); Potassium 3.9 mmol/L (3.3-5.1); Sodium 141 mmol/L (135-145); Total Protein 6.7 g/dL (6.5-8.0)
--- NOTE | 2020-07-28 10:06 | HO.HEMONCPA ---
PA REQUEST FOR IV EMEND CANCELLED PER RISHI JOHNSTON. PT WILL OBTAIN ORAL TABLETS FROM HER PHARMACY
--- NOTE | 2020-07-28 10:16 | MHC.HEMONC ---
Pt insurance covering Aprepitent po tripack for $25. No need for PA on IV EMEND per Dr Cisneros.
[2020-07-28] MEDS: dexAMETHasone sod phosphate/NS 12 MG/50 ML PIGGYBACK 200 MG IV (10:27)
[2020-07-28 15:02] VITALS: BP 143/70; PULSE 74; RESP 18; TEMP 36.5; O2SAT 98
--- NOTE | 2020-07-28 16:43 | MHC.HEMONC ---
Pt tolerated c1d1 FLOT chemo without problems. She was able to get Aprepitant po for days 1-3 and took 1st dose here. Labs WNL. She left with 5FU infusing via pump into port for next 24 hr. She and her were educated on pump features, troubleshooting and how to deal with a spill. She is aware of how to change the battery prn.
[2020-07-29 15:10] VITALS: BP 155/74; PULSE 65; RESP 16; TEMP 36.6; O2SAT 100
--- NOTE | 2020-07-29 15:11 | MHC.HEMONC ---
Pt olerated chemo and 5FU infusion. Did notice cold sensitivity. Taking all post chemo meds as prescribed. VSS.
[2020-08-04 09:57] LABS: MANUAL DIFF FLAG NO
[2020-08-04 10:10] LABS: Basophils Percent Auto 0.4 % (0-2); Eosinophils Absolute Auto 0.1 X10*3/uL (0.0-0.4); Eosinophils Percent Auto 2.2 % (0-4); Hematocrit 36.9 % (37-47); Hemoglobin 12.4 g/dl (12.0-16.0); Imm Gran Abs Auto 0.03 X10*3/uL (0.00-0.03); Imm Gran Pct Auto 1.1 % (0.0-0.4); Lymphocytes Absolute Auto 1.1 X10*3/uL (1.2-4.9); Lymphocytes Percent Auto 40.2 % (20-40); Mean Corpuscular HGB Conc 33.6 g/dl (31.0-35.0); Mean Corpuscular Hemoglobin 30.5 pg (27.0-33.0); Mean Corpuscular Volume 90.9 fL (80-98); Mean Platelet Volume 10.4 fL (9.4-12.3); Monocytes Absolute Auto 0.1 X10*3/uL (0.1-1.2); Monocytes Percent Auto 3.6 % (2-11); Neutrophils Absolute Auto 1.5 X10*3/uL (2.0-8.3); Neutrophils Percent Auto 52.5 % (45-73); Platelet Count 152 X10*3/uL (160-400); Red Blood Count 4.06 X10*6/uL (4.20-5.50); Red Cell Distribution Width 12.3 % (11.0-16.0); White Blood Count 2.8 X10*3/uL (4.8-10.8)
[2020-08-04 10:54] LABS: Alanine Aminotransferase 13 U/L (0-31); Albumin Level 4.4 g/dL (3.5-5.0); Alkaline Phosphatase 62 U/L (39-117); Anion Gap 15 (12-20); Aspartate Amino Transferase 18 U/L (5-31); Bilirubin Total 0.6 mg/dL (0.0-1.0); Blood Urea Nitrogen 13 mg/dL (9-16); Calcium 9.3 mg/dL (8.4-10.2); Carbon Dioxide 26 mmol/L (22-29); Chloride 102 mmol/L (96-108); Creatinine Clr Calc Pharmacy 67.2; Estimated Glomerular Filt Rate > 60; Glucose Random 169 mg/dL (60-115); Potassium 4.7 mmol/L (3.3-5.1); Sodium 138 mmol/L (135-145); Total Protein 6.8 g/dL (6.5-8.0)
--- NOTE | 2020-08-04 11:00 | MHC.HEMONC ---
Pt here for labs one week following c1d1 chemo. She was not seen but I am calling to report labs WNL. ANC low but acceptable.
[2020-08-10 09:47] LABS: MANUAL DIFF FLAG NO
[2020-08-10 09:52] LABS: Basophils Percent Auto 0.4 % (0-2); Eosinophils Percent Auto 0.7 % (0-4); Hematocrit 34.9 % (37-47); Hemoglobin 11.2 g/dl (12.0-16.0); Imm Gran Abs Auto 0.01 X10*3/uL (0.00-0.03); Imm Gran Pct Auto 0.4 % (0.0-0.4); Lymphocytes Absolute Auto 1.3 X10*3/uL (1.2-4.9); Lymphocytes Percent Auto 45.8 % (20-40); Mean Corpuscular HGB Conc 32.1 g/dl (31.0-35.0); Mean Corpuscular Hemoglobin 29.7 pg (27.0-33.0); Mean Corpuscular Volume 92.6 fL (80-98); Mean Platelet Volume 9.7 fL (9.4-12.3); Monocytes Absolute Auto 0.4 X10*3/uL (0.1-1.2); Monocytes Percent Auto 14.1 % (2-11); Neutrophils Absolute Auto 1.1 X10*3/uL (2.0-8.3); Neutrophils Percent Auto 38.6 % (45-73); Platelet Count 150 X10*3/uL (160-400); Red Blood Count 3.77 X10*6/uL (4.20-5.50); Red Cell Distribution Width 12.7 % (11.0-16.0); White Blood Count 2.8 X10*3/uL (4.8-10.8)
[2020-08-10 10:39] LABS: Alanine Aminotransferase 15 U/L (0-31); Albumin Level 4.3 g/dL (3.5-5.0); Alkaline Phosphatase 64 U/L (39-117); Anion Gap 13 (12-20); Aspartate Amino Transferase 19 U/L (5-31); Bilirubin Total 0.3 mg/dL (0.0-1.0); Blood Urea Nitrogen 17 mg/dL (9-16); Calcium 9.5 mg/dL (8.4-10.2); Carbon Dioxide 28 mmol/L (22-29); Chloride 104 mmol/L (96-108); Estimated Glomerular Filt Rate > 60; Glucose Random 143 mg/dL (60-115); Sodium 141 mmol/L (135-145); Total Protein 6.7 g/dL (6.5-8.0)
--- NOTE | 2020-08-10 11:56 | HO.HEMONCPA ---
Request for Manny tapia APPROVED. Auth#[id number], approved from 08/10/2020-08/10/2021. Will scan letter of approval into patient's chart upon arrival.
--- NOTE | 2020-08-10 12:13 | MHC.HEMONC ---
Pt labs reviewed. ANC still low 1100 so pt to get Neulasta day following chemo per Dr Cisneros. PA obtained. Will call pt to inform her.
[2020-08-11 08:50] VITALS: BP 140/68; PULSE 76; RESP 18; TEMP 36.2; O2SAT 98; BMI 23.6
[2020-08-11] MEDS: Acetaminophen 325 MG TABLET 650 MG PO (09:31)
[2020-08-11] MEDS: ondansetron HCL/NS 16 MG/50 ML PIGGYBACK 200 MG IV (09:31)
[2020-08-11] MEDS: dexAMETHasone sod phosphate/NS 12 MG/50 ML PIGGYBACK 200 MG IV (10:01)
[2020-08-11] MEDS: cephALEXin 500 MG CAPSULE PO (10:37)
--- NOTE | 2020-08-11 10:39 | MHC.HEMONCSW ---
MET WITH PATIENT WHO IS COPING WELL. CONTINUES TREATMENT. HAS NO COMMUNITY SERVICES AND NOT INTERESTED IN ANY. HEALTH CARE PROXY IS COMPLETED. EDUCATION AND SUPPORT PROVIDED.
[2020-08-11 11:30] VITALS: BP 145/69; PULSE 70; RESP 17; O2SAT 99
[2020-08-11] MEDS: Hydrocortisone Sod Succ/PF 100 MG VIAL IVPUSH (11:40)
[2020-08-11] MEDS: diphenhydrAMINE HCL 50 MG/ML VIAL 25 MG IVPUSH (11:41)
[2020-08-11 11:49] VITALS: BP 146/68; PULSE 64; O2SAT 99
--- NOTE | 2020-08-11 15:08 | MHC.HEMONC ---
Pt here for c#2 FLOT. She took Dex at home yesterday. Labs yesterday reviewed. ANC 1100 so she will get Neulasta tomorrow with pump takedown. Her port incision on chest and neck noted to be reddened and tender at times. No drainage no fevers. Seen by Dr Cisneros. Meri ordered and started here. Pt took dex at home yesterday. She had reaction of throat itching 10 minutes into docetaxel. Her vs and O 2 sat were WNL. She was given 100mh IV hydrocortisone and 25mg IV Benadryl with relief. Able to tahir remainder of chemo. She left with 5FU infusing via pump. Return tomorrow p.m.
[2020-08-12 15:52] VITALS: BP 135/64; PULSE 66; RESP 18; TEMP 36.8; O2SAT 98
--- NOTE | 2020-08-12 16:12 | MHC.HEMONC ---
pt here for 5FU takedown and Neulasta injection. She also had Covid vaccine this morning. She is feeling well. She is tahir po intake. She is taking dex a/o and EMEND as well as Keflex for reddened port incisions. She said she notes redness across cheeks and bridge of nose this morning which is now gone. She also sees a faint rash on left arm. She was told if this worsens at all since it could be from antibiotic. VSS. She will call prn.
[2020-08-18 10:50] LABS: Hematocrit 33.2 % (37-47); Hemoglobin 11.2 g/dl (12.0-16.0); Mean Corpuscular HGB Conc 33.7 g/dl (31.0-35.0); Mean Corpuscular Hemoglobin 30.8 pg (27.0-33.0); Mean Corpuscular Volume 91.2 fL (80-98); Mean Platelet Volume 10.3 fL (9.4-12.3); NRBC Pct Auto 0.2 /100WBC (0.0-0.2); Platelet Count 151 X10*3/uL (160-400); Red Blood Count 3.64 X10*6/uL (4.20-5.50); Red Cell Distribution Width 12.5 % (11.0-16.0); White Blood Count 9.1 X10*3/uL (4.8-10.8)
[2020-08-18 11:28] LABS: Alanine Aminotransferase 14 U/L (0-31); Alkaline Phosphatase 88 U/L (39-117); Anion Gap 11 (12-20); Aspartate Amino Transferase 16 U/L (5-31); Bilirubin Total 0.4 mg/dL (0.0-1.0); Blood Urea Nitrogen 9 mg/dL (9-16); Calcium 9.3 mg/dL (8.4-10.2); Carbon Dioxide 27 mmol/L (22-29); Chloride 105 mmol/L (96-108); Creatinine Clr Calc Pharmacy 76.7; Estimated Glomerular Filt Rate > 60; Glucose Random 165 mg/dL (60-115); Potassium 4.4 mmol/L (3.3-5.1); Sodium 139 mmol/L (135-145)
[2020-08-18 11:34] LABS: Band Neutrophils Percent 27 % (3-5); Basophils Abs Manual 0.1 X10*3/uL (0.0-0.3); Basophils Percent Manual 1 % (0-1); Eosinophils Absolute Manual 0.1 X10*3/UL (0.0-0.8); Eosinophils Percent Manual 1 % (0-4); Lymphocytes Absolute Manual 1.2 X10*3/uL (0.6-4.8); Lymphocytes Percent Manual 13 % (20-40); Metamyelocytes Absolute 0.1 X10*3/uL; Metamyelocytes Percent 1 %; Monocytes Absolute Manual 0.6 X10*3/uL (0.0-1.2); Monocytes Percent Manual 7 % (2-11); Neutrophils Absolute Manual 6.9 X10*3/uL (2.2-7.9); Neutrophils Percent Manual 49 % (45-73); Nucleated Red Blood Cells 1 /100WBC (0-0); Promyelocytes Absolute 0.1 X10*3/uL; Promyelocytes Percent 1 %
[2020-08-18 11:36] LABS: Acanthocytes 1+ (0-2) /OIF; Platelet Estimate SLIGHTLY DECREASED (NORMAL); Platelet Morphology Comment NORMAL; RBC Morphology NOTED
[2020-08-18 11:37] LABS: Dohle Bodies PRESENT; WBC Morphology Comment DYSMORPHIC
[2020-08-25 08:46] VITALS: BP 164/70; PULSE 84; RESP 18; TEMP 36.3; O2SAT 100; BMI 24.1
[2020-08-25 08:55] LABS: MANUAL DIFF FLAG NO
[2020-08-25 09:00] LABS: Basophils Percent Auto 0.2 % (0-2); Eosinophils Percent Auto 0.6 % (0-4); Hematocrit 34.6 % (37-47); Imm Gran Abs Auto 0.03 X10*3/uL (0.00-0.03); Imm Gran Pct Auto 0.6 % (0.0-0.4); Lymphocytes Absolute Auto 1.1 X10*3/uL (1.2-4.9); Lymphocytes Percent Auto 22.9 % (20-40); Mean Corpuscular HGB Conc 31.8 g/dl (31.0-35.0); Mean Corpuscular Hemoglobin 30.2 pg (27.0-33.0); Mean Corpuscular Volume 95.1 fL (80-98); Mean Platelet Volume 10.9 fL (9.4-12.3); Monocytes Absolute Auto 0.4 X10*3/uL (0.1-1.2); Monocytes Percent Auto 7.6 % (2-11); Neutrophils Absolute Auto 3.4 X10*3/uL (2.0-8.3); Neutrophils Percent Auto 68.1 % (45-73); Platelet Count 133 X10*3/uL (160-400); Red Blood Count 3.64 X10*6/uL (4.20-5.50); Red Cell Distribution Width 13.2 % (11.0-16.0)
[2020-08-25 09:25] LABS: Alanine Aminotransferase 13 U/L (0-31); Alkaline Phosphatase 75 U/L (39-117); Anion Gap 13 (12-20); Aspartate Amino Transferase 18 U/L (5-31); Bilirubin Total 0.5 mg/dL (0.0-1.0); Blood Urea Nitrogen 13 mg/dL (9-16); Carbon Dioxide 26 mmol/L (22-29); Chloride 107 mmol/L (96-108); Creatinine Clr Calc Pharmacy 74.3; Estimated Glomerular Filt Rate > 60; Glucose Random 122 mg/dL (60-115); Sodium 142 mmol/L (135-145); Total Protein 6.1 g/dL (6.5-8.0)
[2020-08-25] MEDS: ondansetron HCL/NS 16 MG/50 ML PIGGYBACK 200 MG IV (09:41)
[2020-08-25] MEDS: Famotidine/PF 20 MG/2 ML VIAL IVPUSH (09:41)
[2020-08-25] MEDS: dexAMETHasone sod phosphate/NS 12 MG/50 ML PIGGYBACK 200 MG IV (10:08)
[2020-08-25] MEDS: diphenhydrAMINE HCL 50 MG/ML VIAL IVPUSH (10:22)
--- NOTE | 2020-08-25 15:44 | PM.HEMONCPN ---
Medical Summary - Medical Summary Date of Service: 08/25/20 Chief complaint: Follow-up for: Gastric carcinoma. Medical Summary: DIAGNOSIS: GASTRIC CARCINOMA. CURRENT THERAPY: FLOT CHEMOTHERAPY, HERE FOR CYCLE 2, day 1. Interval History Interval history: Sheryl Espinoza is a pleasant 64 year old lady here for a follow-up visit. She is feeling reasonably well. She has been tolerating the chemotherapy quite well. She denies any significant nausea or vomiting, only today she felt nauseous after the IV Benadryl was given. She says she does get tired on the weekend after she completes the Decadron therapy. She used to have a pain in her right side, below the breast, 2-3 times a day. That has resolved. Denies any chest pain or trouble with breathing. She denies abdominal pain and nausea. She had dyspepsia but omeprazole has been helping. She denies diarrhea. Denies gross blood in the stools. She enjoys a good appetite, however she has noticed that she is unable to eat too much in one sitting. That makes her feel nauseous. It is not too bad. She has lost weight. She is in good spirits. Rest of the review of systems is unremarkable. She does try to work out every day. Previous history: She was admitted to the hospital back towards the end of February, with symptoms of acute diverticulitis and UTI. She had presented with 3 days history of left flank pain and dysuria. Abdominal pain was accompanied by decreased appetite nausea and 1 episode of vomiting on 02/27. CT scan of the abdomen revealed: 1.Short segment mural thickening and pericolonic infiltrative changes in the proximal descending colon most consistent with acute diverticulitis or short segment colitis. 2. Mild left pelvo- caliectasis, without obstructing abnormality could be secondary to left ureteropelvic junction stenosis. Left renal cyst demonstrated benign features. Nonobstructing right upper pole intrarenal calculus. 3. mild free fluid in the pelvis is presumed secondary to colonic findings. 4. Very small hiatus hernia. Patient was started on IV antibiotics and admitted. In addition she was noted to have a urinary tract infection. Blood cultures showed Gram-negative rods, likely bacteremia from the UTI. She did note improvement from abdominal pain from 10/10 to 4/10 the following day. She also complained of heartburn and odynophagia of for a few days. She was seen by GI. Recommendation was to continue IV antibiotics until abdominal pain improves. Start oral omeprazole for heartburn and odynophagia. To be scheduled for an upper endoscopy and colonoscopy, in 5-6 weeks time, after resolution of the diverticulitis. This was done on 04/24. Pathology revealed: Stomach body biopsy: Poorly differentiated carcinoma. Morphology and immunophenotype are not 100% specific but raise the possibility of metastatic lobular carcinoma of the breast. Other primary sources include gastric and other upper GI locations. ROS: She denies easy fatigability. Her appetite is good. She has lost some weight. One hundred fifty down to 135 lb. Denies headache no dizziness. No chest pain or trouble breathing. No cough nor shortness of breath no chest pain. She had some dyspepsia type symptoms when she was in house. The omeprazole has taken care of these. Occasional cramping prior to bowel movement. Denies diarrhea. Denies gross blood in the stools. She never had a previous colonoscopy. She had recent UTI symptoms. These have resolved. She has arthritis involving her knees. Denies any focal weakness. No depression/anxiety. Family history: Dad had pancreatic cancer at the age of 67. Mom had non-Hodgkin's lymphoma. 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 She has 3 children. She smoked as a teenager. She rarely drinks. Review of Systems - Constitutional Reports system reviewed and no additional complaints, except as documented - Eyes Reports system reviewed and no additional complaints, except as documented - ENT Reports system reviewed and no additional complaints, except as documented - Cardiovascular Reports system reviewed and no additional complaints, except as documented - Respiratory Reports no additional respiratory complaints - Gastrointestinal Reports system reviewed and no additional complaints, except as documented - Genitourinary Reports no additional female genitourinary complaints - Musculoskeletal Reports system reviewed and no additional complaints, except as documented - Integumentary/Breasts Skin/Breast: Reports no additional skin complaints - Neurologic Reports system reviewed and no additional complaints, except as documented - Psychiatric Reports system reviewed and no additional complaints, except as documented - Endocrine Reports no additional endocrine complaints - Hematologic/Lymphatic Reports system reviewed and no additional complaints, except as documented - Allergic/Immunologic Reports system reviewed and no additional complaints, except as documented [facility] Medical History: Medical History (Last Updated 06/22/20 @ 16:11 by Zachary Clark MD) History of cellulitis Hx of diverticulitis of colon Hypercholesterolemia Lab test negative for COVID-19 virus Type 2 diabetes mellitus with hyperglycemia Functional capacity: independent ambulation Patient : No Family History: Family History (Last Updated 05/11/20 @ 08:02 by Laquita Gaytan) Father Pancreatic cancer Mother NHL (non-Hodgkin's lymphoma) Maternal Grandfather Prostate cancer Maternal Grandmother Diabetes Heart disease Paternal Grandfather Diabetes Son Asthma Surgical History: Surgical History (Last Updated 05/14/20 @ 13:21 by PARTH Monzon) H/O tubal ligation History of esophagogastroduodenoscopy (EGD) Hx of appendectomy Hx of colonoscopy Hx of tonsillectomy S/P cholecystectomy Onset Date: ~1988 S/P right knee arthroscopy Onset Date: ~2002 Social History: Social History (Last Updated 06/15/20 @ 16:43 by Zachary Clark MD) Living Situation History: Household Members: Spouse Household Members: Children Housing: House Are you a primary farm or ranch animal caretaker to a significant other at home: No Alcohol History: Alcohol intake: current Alcohol History Details: Alcohol intake frequency: holiday/special occasion Tobacco History: Smoking Status: Never smoker Second Hand Smoke Exposure: No Substance Use History: Use of substances other than those prescribed or required for medical reasons: No Domestic Abuse History: Have you been hit, kicked, punched, or otherwise hurt by someone within the past year? 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 Smoking status: Never smoker Oncology Screenings - ECOG Performance Status ECOG Performance Status: 0 Home Medications and Allergies Current Medications: Current Medications Generic Name Dose Route Start Last Admin Trade Name Freq PRN Reason Stop Dose Admin Dexamethasone Sodium Phosphate 12 mg in 50 mls @ 200 mls/hr 08/25/20 00:00 08/25/20 10:22 Decadron IV 08/25/20 23:59 Infused ONCE [facility] Infusion Ondansetron HCl 16 mg in 50 mls @ 200 mls/hr 08/25/20 00:00 08/25/20 10:04 Zofran IV 08/25/20 23:59 Infused ONCE [facility] Infusion Docetaxel 80 mg/ Docetaxel 5 254.25 mls @ 254.25 mls/hr 08/25/20 00:00 08/25/20 12:20 mg/ Sodium Chloride IV 08/25/20 23:59 Infused ONCE [facility] Infusion Fluorouracil 4,375 mg/ Sodium 91.2 mls @ 3.8 mls/hr 08/25/20 00:00 08/25/20 14:44 Chloride IV 08/25/20 23:59 3.8 mls/hr ONCE [facility] Administration Leucovorin Calcium 340 mg/ 267 mls @ 133.5 mls/hr 08/25/20 00:00 08/25/20 14:31 Dextrose IV 08/25/20 23:59 Infused ONCE [facility] Infusion Oxaliplatin 100 mg/ 528 mls @ 264 mls/hr 08/25/20 00:00 08/25/20 14:41 Oxaliplatin 40 mg/ Dextrose IV 08/25/20 23:59 Infused ONCE [facility] Infusion Home Medications Medication Instructions Recorded Confirmed Type multivitamin 1 tab PO DAILY 05/11/20 07/14/20 History Allergies Allergy/AdvReac Type Severity Reaction Status Date / Time meperidine [From Demerol] Allergy Severe Swelling Verified 06/16/20 08:52 Exam Vital signs: Vital Signs Temp 97.4 F 08/25/20 08:46 Pulse 84 08/25/20 08:46 Resp 18 08/25/20 08:46 BP 164/70 H 08/25/20 08:46 Pulse Ox 100 08/25/20 08:46 Intake & Output 08/24/20 08/25/20 08/25/20 18:59 06:59 18:59 Intake Total 1149.25 / 1149.25 Balance 1149.25 / 1149.25 Intake: Intake, IV Amount 1149.25 / 1149.25 DOCEtaxeL 80 mg DOCEtaxeL 5 mg 254.25 / 254.25 In 0.9 % Sodium Chloride 250 ml @ 254.25 mls/hr IV ONCE [facility] Rx #:[id number] Leucovorin Calcium 340 mg In 267 / 267 Dextrose 5 % 250 ml @ 133.5 mls /hr IV ONCE [facility] Rx#:[id number] Oxaliplatin 100 mg Oxaliplatin 528 / 528 40 mg In Dextrose 5 % 500 ml @ 264 mls/hr IV ONCE [facility] Rx#: [id number] dexAMETHasone sod phosphate/NS 50 / 50 12 mg In 50 ml @ 200 mls/hr IV ONCE [facility] Rx#:[id number] ondansetron HCL/NS 16 mg In 50 50 / 50 ml @ 200 mls/hr IV ONCE [facility] Rx# :[id number] Other: Weight 63.9 kg [place] Weight in Grams 36566 Weight 63.9 kg Body Mass Index 24.1 - Constitutional Present: no acute distress - Routine HEENT Exam Head: Present: normal inspection Eye: Present: normal appearance ENT: Present: mucous membranes moist - Routine Neck Exam Present: full ROM - Routine Respiratory Exam Present: CTAB - Routine Cardiovascular Exam Cardiovascular: Present: RRR, S1, S2 - Routine Abdominal Exam Present: soft, nontender - Routine Rectal Exam Patient deferred: digital exam - Routine Extremities Exam Present: nontender - Routine Back/Spine/Pelvis Exam Back/Spine: Present: full ROM - Routine Skin Exam Present: intact - Routine Neurological Exam Present: alert, oriented X3, vision grossly intact - Detailed Neurological Exam: Coma Scale Eye Opening: Spontaneous (4) - Routine Psychiatric Exam Present: normal affect Data - Labs CBC & Chem 7: 08/25/20 08:40 08/25/20 08:40 Labs: 05/11/20 09:12 CA 27.29 Routine Carcinoembryonic Antigen Routine Complete Blood Count Auto Diff Routine Comprehensive Met. Panel Routine 06/02/20 09:52 CMP [Comprehensive Met. Panel] Routine Complete Blood Count Auto Diff Routine Prothrombin Time INR Routine Laboratory Last Values WBC 3.5 X10*3/uL (4.8-10.8) L 06/02/20 09:52 RBC 4.00 X10*6/uL (4.20-5.50) L 06/02/20 09:52 Hgb 12.1 g/dl (12.0-16.0) 06/02/20 09:52 Hct 36.7 % (37-47) L 06/02/20 09:52 MCV 91.8 fL (80-98) 06/02/20 09:52 MCH 30.3 pg (27.0-33.0) 06/02/20 09:52 MCHC 33.0 g/dl (31.0-35.0) 06/02/20 09:52 RDW 12.6 % (11.0-16.0) 06/02/20 09:52 Plt Count 161 X10*3/uL (160-400) 06/02/20 09:52 MPV 10.2 fL (9.4-12.3) 06/02/20 09:52 Immature Gran % (Auto) 0.3 % (0.0-0.4) 06/02/20 09:52 Neut % (Auto) 59.8 % (45-73) 06/02/20 09:52 Lymph % (Auto) 32.5 % (20-40) 06/02/20 09:52 [place] % (Auto) 5.1 % (2-11) 06/02/20 09:52 Eos % (Auto) 1.7 % (0-4) 06/02/20 09:52 Baso % (Auto) 0.6 % (0-2) 06/02/20 09:52 Lymph # (Auto) 1.2 X10*3/uL (1.2-4.9) 06/02/20 09:52 [place] # (Auto) 0.2 X10*3/uL (0.1-1.2) 06/02/20 09:52 Eos # (Auto) 0.1 X10*3/uL (0.0-0.4) 06/02/20 09:52 Baso # (Auto) 0.0 X10*3/uL (0.0-0.2) 06/02/20 09:52 Abs Immat Gran (auto) 0.01 X10*3/uL (0.00-0.03) 06/02/20 09:52 Absolute Neuts (auto) 2.1 X10*3/uL (2.0-8.3) 06/02/20 09:52 Absolute Nucleated RBC 0.000 X10*3/uL (0.0-0.012) 06/02/20 09:52 Nucleated RBC % (auto) 0.0 /100WBC (0.0-0.2) 06/02/20 09:52 PT 11.7 SEC (10.8-13.0) 06/02/20 09:52 INR 1.0 (0.9-1.1) 06/02/20 09:52 Sodium 140 mmol/L (135-145) 06/02/20 09:52 Potassium 4.2 mmol/l (3.3-5.1) 06/02/20 09:52 Chloride 102 mmol/L (96-108) 06/02/20 09:52 Carbon Dioxide 31 mmol/L (22-29) H 06/02/20 09:52 Anion Gap 11 (12-20) L 06/02/20 09:52 BUN 9 mg/dL (9-16) 06/02/20 09:52 Creatinine 0.81 mg/dL (0.5-1.4) 06/02/20 09:52 Estim Creat Clear Calc 60.5 06/02/20 09:52 Estimated GFR > 60 06/02/20 09:52 Random Glucose 306 mg/dL (60-115) H 06/02/20 09:52 Calcium 9.7 mg/dL (8.4-10.2) 06/02/20 09:52 Total Bilirubin 0.6 mg/dL (0.0-1.0) 06/02/20 09:52 AST 17 U/L (5-31) 06/02/20 09:52 ALT 13 U/L (0-31) 06/02/20 09:52 Alkaline Phosphatase 90 U/L (39-117) 06/02/20 09:52 Total Protein 7.3 g/dL (6.5-8.0) 06/02/20 09:52 Albumin 4.6 g/dL (3.5-5.0) 06/02/20 09:52 Carcinoembryonic Ag 5.10 mg/mL 05/11/20 09:12 CA 27-29 103 U/mL (<38) H 05/11/20 09:12 Progress Note: A/P (1) Gastric cancer Status: Inactive (2) Gastric cancer Status: Acute Assessment and plan: This is a pleasant 64-year-old lady with a history of diabetes and diverticulosis. She had epigastric pain, off and on for a few months. She tells me she had GERD symptoms however she stopped eating sweets and those resolved. This was about 13 years ago. She was started on omeprazole recently which has been helping. Back in February she was admitted with a bout of diverticulitis. CT scan of the abdomen revealed: 1. Short segment mural thickening and pericolonic infiltrative changes in the proximal descending colon most consistent with acute diverticulitis or short segment colitis as a definitive diverticulum is not seen. 2. Mild left pelvocaliectasis without obstructing abnormality could be secondary to left ureteropelvic junction stenosis. Left renal cysts demonstrate benign features. Nonobstructing right upper pole intrarenal calculus. 3. Mild free fluid in the pelvis is presumed secondary to the colonic findings. 4. Very small hiatal hernia. Subsequently an upper endoscopy and colonoscopy was arranged. This was done on 04/[address] Fields. Colonoscopy was negative however upper endoscopy revealed: Poorly differentiated carcinoma, in the stomach. Possibility of metastatic lobular carcinoma of the breast was raised. Her breast exam was normal however, she tells me she has not had a mammogram in about 20 years. As per NCCN guidelines workup for gastric carcinoma that is recommended includes: 1. PET scan. 2. Endoscopic ultrasound to determine if disease is early versus locally advanced stage. She was sent over to the [facility] to have a mammogram: No mammographic evidence of malignancy. I checked baseline labs, including the tumor markers: CEA 5.1, Ca 27.29 103. l proceeded with a PET scan for staging. This revealed: No foci of abnormal FDG activity are visualized. There are no abnormalities visualized suspicious for metastatic or other malignant lesions. l requested endoscopic ultrasound for exact pathological staging. This was scheduled at [facility], by Dr. Blanco. The area of abnormality was very subtle. He took several biopsies. Unfortunately they came back positive. She has seen Dr. Rajan, to consider surgery by minimally invasive method. It was decided to proceed with FLOT chemotherapy in the neoadjuvant setting. She was started on it about 6 weeks ago. She has tolerated it reasonably well. She is here for cycle 2 day 1. PLAN: To complete 3 cycles and then re-stage her. She will probably need endoscopy since imaging was not very helpful. She will return in a month for a follow-up visit. Hopefully she will have a complete remission with chemotherapy and will be able to proceed with surgery. Thank you, CC: Dr. Clark. Dr. Fields. Dr. De Leon. Dr. Rajan - Time Spent With Patient Total time spent is greater than 50% in coordination of care (as documented) at patient's floor/unit and/or counseling patient: 25 - 35 minutes
--- NOTE | 2020-08-25 15:48 | MHC.HEMONC ---
Pt here for c#3 chemo with FLOT. Pt labs reviewed and pt seen by Dr Cisneros. She seems to be holding up well and is tahir pos. Chemo tahir well. She got extra pre-meds due to mild reaction last cycle. She took her po Aprepitent as ordered for day#1. Left with 5FU pump infusing via port.
[2020-08-26 15:01] VITALS: BP 153/70; PULSE 83; RESP 18; TEMP 36.4; O2SAT 100; BMI 23.7
--- NOTE | 2020-08-26 16:14 | MHC.HEMONC ---
Pt here for pump take down. States feels good, just tired. States did a lot of things this morning. Port deaccessed. Neulasta given as ordered. Will return for labs in 1 week.
[2020-09-01 09:36] LABS: Hematocrit 34.6 % (37-47); Hemoglobin 11.2 g/dl (12.0-16.0); Mean Corpuscular HGB Conc 32.4 g/dl (31.0-35.0); Mean Corpuscular Hemoglobin 29.9 pg (27.0-33.0); Mean Corpuscular Volume 92.3 fL (80-98); Mean Platelet Volume 10.5 fL (9.4-12.3); NRBC Pct Auto 0.2 /100WBC (0.0-0.2); Platelet Count 153 X10*3/uL (160-400); Red Blood Count 3.75 X10*6/uL (4.20-5.50); Red Cell Distribution Width 12.9 % (11.0-16.0); White Blood Count 9.6 X10*3/uL (4.8-10.8)
[2020-09-01 10:03] LABS: Alanine Aminotransferase 15 U/L (0-31); Albumin Level 4.2 g/dL (3.5-5.0); Alkaline Phosphatase 111 U/L (39-117); Anion Gap 11 (12-20); Aspartate Amino Transferase 19 U/L (5-31); Bilirubin Total 0.3 mg/dL (0.0-1.0); Blood Urea Nitrogen 11 mg/dL (9-16); Calcium 9.3 mg/dL (8.4-10.2); Carbon Dioxide 28 mmol/L (22-29); Chloride 104 mmol/L (96-108); Creatinine Clr Calc Pharmacy 79.1; Estimated Glomerular Filt Rate > 60; Glucose Random 160 mg/dL (60-115); Sodium 139 mmol/L (135-145); Total Protein 6.3 g/dL (6.5-8.0)
--- NOTE | 2020-09-01 10:24 | MHC.HEMONC ---
Pt here for lab draw. She is c/o both hands being reddened and burning. Dr Cisnreos aware and assessed pt. She encouraged pt to use aquaphor, and pt is agreeable to try.
[2020-09-01 10:25] LABS: Band Neutrophils Percent 0 % (3-5); Lymphocytes Absolute Manual 1.2 X10*3/uL (0.6-4.8); Lymphocytes Percent Manual 12 % (20-40); Monocytes Percent Manual 10 % (2-11); Neutrophils Absolute Manual 7.5 X10*3/uL (2.2-7.9); Neutrophils Percent Manual 78 % (45-73); Ovalocytes 1+ (5-14) /OIF; Platelet Estimate NORMAL (NORMAL); Platelet Morphology Comment NORMAL; Polychromasia 1+ (0-2) /OIF; RBC Morphology NOTED
[2020-09-07 09:22] LABS: Basophils Percent Auto 0.1 % (0-2); Eosinophils Percent Auto 0.3 % (0-4)
[2020-09-07 09:24] LABS: Hematocrit 33.6 % (37-47); Hemoglobin 10.8 g/dl (12.0-16.0); Imm Gran Abs Auto 0.12 X10*3/uL (0.00-0.03); Imm Gran Pct Auto 1.8 % (0.0-0.4); Lymphocytes Absolute Auto 1.2 X10*3/uL (1.2-4.9); Lymphocytes Percent Auto 18.1 % (20-40); Mean Corpuscular HGB Conc 32.1 g/dl (31.0-35.0); Mean Corpuscular Hemoglobin 29.8 pg (27.0-33.0); Mean Corpuscular Volume 92.6 fL (80-98); Mean Platelet Volume 10.4 fL (9.4-12.3); Monocytes Absolute Auto 0.5 X10*3/uL (0.1-1.2); Monocytes Percent Auto 6.9 % (2-11); Neutrophils Percent Auto 72.8 % (45-73); Platelet Count 140 X10*3/uL (160-400); Red Blood Count 3.63 X10*6/uL (4.20-5.50); Red Cell Distribution Width 13.7 % (11.0-16.0); White Blood Count 6.9 X10*3/uL (4.8-10.8)
[2020-09-07 09:38] LABS: MANUAL DIFF FLAG NO
[2020-09-07 09:44] LABS: Alanine Aminotransferase 19 U/L (0-31); Alkaline Phosphatase 98 U/L (39-117); Anion Gap 10 (12-20); Aspartate Amino Transferase 23 U/L (5-31); Bilirubin Total 0.3 mg/dL (0.0-1.0); Blood Urea Nitrogen 12 mg/dL (9-16); Calcium 9.6 mg/dL (8.4-10.2); Carbon Dioxide 30 mmol/L (22-29); Chloride 104 mmol/L (96-108); Creatinine Clr Calc Pharmacy 74.3; Estimated Glomerular Filt Rate > 60; Glucose Random 111 mg/dL (60-115); Potassium 3.9 mmol/L (3.3-5.1); Sodium 140 mmol/L (135-145); Total Protein 6.1 g/dL (6.5-8.0)
--- NOTE | 2020-09-07 09:52 | MHC.HEMONC ---
pt here for labs - all WNL. I will call her with report.
[2020-09-08 08:51] VITALS: BP 139/63; PULSE 86; RESP 18; TEMP 36.1; O2SAT 100; BMI 23.6
[2020-09-08] MEDS: Famotidine/PF 20 MG/2 ML VIAL IVPUSH (09:30)
[2020-09-08] MEDS: ondansetron HCL/NS 16 MG/50 ML PIGGYBACK 200 MG IV (09:33)
[2020-09-08] MEDS: Acetaminophen 325 MG TABLET 650 MG PO (09:34)
[2020-09-08] MEDS: dexAMETHasone sod phosphate/NS 12 MG/50 ML PIGGYBACK 200 MG IV (09:51)
[2020-09-08] MEDS: diphenhydrAMINE HCL 50 MG/ML VIAL IVPUSH (10:13)
--- NOTE | 2020-09-08 16:13 | MHC.HEMONC ---
Pt here for C4 D1 of treatment. Labs done 09/07 and reviewed. Port accessed with good blood return noted. Premeds given as ordered. Treatment done and pt tolerated well. Home with infusion pump. Pt to return in 24 hrs for pump take down and neulasta.
[2020-09-09 13:52] VITALS: BP 145/65; PULSE 89; RESP 18; TEMP 36.2; O2SAT 100; BMI 23.2
--- NOTE | 2020-09-09 15:43 | MHC.HEMONC ---
Pt here for pump take down and neulasta injection. States she was very tired after treatment, and went home and slept 3 hours. Also states she has tingling in her hands, and has never felt it this bad. Does feel better today with gloves on. Neulast given as ordered and pt tolerated well. Scheduled to return in 1 week for labs.
[2020-09-15 10:21] LABS: MANUAL DIFF FLAG NO
[2020-09-15 10:27] LABS: Basophils Absolute Auto 0.1 X10*3/uL (0.0-0.2); Basophils Percent Auto 0.6 % (0-2); Eosinophils Percent Auto 0.2 % (0-4); Hematocrit 33.5 % (37-47); Hemoglobin 10.9 g/dl (12.0-16.0); Imm Gran Abs Auto 0.05 X10*3/uL (0.00-0.03); Imm Gran Pct Auto 0.6 % (0.0-0.4); Lymphocytes Absolute Auto 1.3 X10*3/uL (1.2-4.9); Lymphocytes Percent Auto 15.3 % (20-40); Mean Corpuscular HGB Conc 32.5 g/dl (31.0-35.0); Mean Corpuscular Volume 92.3 fL (80-98); Mean Platelet Volume 10.6 fL (9.4-12.3); Monocytes Absolute Auto 0.6 X10*3/uL (0.1-1.2); Monocytes Percent Auto 6.9 % (2-11); Neutrophils Absolute Auto 6.4 X10*3/uL (2.0-8.3); Neutrophils Percent Auto 76.4 % (45-73); Platelet Count 170 X10*3/uL (160-400); Red Blood Count 3.63 X10*6/uL (4.20-5.50); Red Cell Distribution Width 13.5 % (11.0-16.0); White Blood Count 8.3 X10*3/uL (4.8-10.8)
[2020-09-15 10:53] LABS: Alanine Aminotransferase 19 U/L (0-31); Albumin Level 4.1 g/dL (3.5-5.0); Alkaline Phosphatase 115 U/L (39-117); Anion Gap 11 (12-20); Aspartate Amino Transferase 20 U/L (5-31); Bilirubin Total 0.4 mg/dL (0.0-1.0); Blood Urea Nitrogen 7 mg/dL (9-16); Calcium 9.4 mg/dL (8.4-10.2); Carbon Dioxide 28 mmol/L (22-29); Chloride 103 mmol/L (96-108); Creatinine Clr Calc Pharmacy 76.7; Estimated Glomerular Filt Rate > 60; Glucose Random 184 mg/dL (60-115); Sodium 138 mmol/L (135-145); Total Protein 6.2 g/dL (6.5-8.0)
--- NOTE | 2020-09-15 12:53 | MHC.HEMONC ---
labs wnl today. I did not see pt.
[2020-09-21 10:14] LABS: MANUAL DIFF FLAG NO
[2020-09-21 10:18] LABS: Basophils Percent Auto 0.3 % (0-2); Eosinophils Percent Auto 0.5 % (0-4); Hematocrit 32.5 % (37-47); Hemoglobin 10.4 g/dl (12.0-16.0); Imm Gran Abs Auto 0.13 X10*3/uL (0.00-0.03); Lymphocytes Absolute Auto 1.3 X10*3/uL (1.2-4.9); Lymphocytes Percent Auto 19.6 % (20-40); Mean Corpuscular Hemoglobin 30.1 pg (27.0-33.0); Mean Corpuscular Volume 93.9 fL (80-98); Mean Platelet Volume 10.3 fL (9.4-12.3); Monocytes Absolute Auto 0.5 X10*3/uL (0.1-1.2); Monocytes Percent Auto 7.3 % (2-11); Neutrophils Absolute Auto 4.6 X10*3/uL (2.0-8.3); Neutrophils Percent Auto 70.3 % (45-73); Platelet Count 134 X10*3/uL (160-400); Red Blood Count 3.46 X10*6/uL (4.20-5.50); Red Cell Distribution Width 14.6 % (11.0-16.0); White Blood Count 6.5 X10*3/uL (4.8-10.8)
[2020-09-21 10:51] LABS: Alanine Aminotransferase 23 U/L (0-31); Albumin Level 3.9 g/dL (3.5-5.0); Alkaline Phosphatase 98 U/L (39-117); Anion Gap 14 (12-20); Aspartate Amino Transferase 27 U/L (5-31); Bilirubin Total 0.3 mg/dL (0.0-1.0); Blood Urea Nitrogen 9 mg/dL (9-16); Calcium 8.8 mg/dL (8.4-10.2); Carbon Dioxide 24 mmol/L (22-29); Chloride 107 mmol/L (96-108); Creatinine Clr Calc Pharmacy 83.1; Estimated Glomerular Filt Rate > 60; Glucose Random 88 mg/dL (60-115); Sodium 141 mmol/L (135-145); Total Protein 5.9 g/dL (6.5-8.0)
[2020-09-22 09:00] VITALS: BP 142/66; PULSE 85; RESP 18; TEMP 36.6; O2SAT 98; BMI 23.9
[2020-09-22] MEDS: Famotidine/PF 20 MG/2 ML VIAL IVPUSH (09:51)
[2020-09-22] MEDS: ondansetron HCL/NS 16 MG/50 ML PIGGYBACK 200 MG IV (09:53)
[2020-09-22] MEDS: Acetaminophen 325 MG TABLET 650 MG PO (09:54)
[2020-09-22] MEDS: dexAMETHasone sod phosphate/NS 12 MG/50 ML PIGGYBACK 200 MG IV (10:11)
[2020-09-22] MEDS: diphenhydrAMINE HCL 50 MG/ML VIAL IVPUSH (10:39)
--- NOTE | 2020-09-22 15:09 | MHC.HEMONC ---
Pt here for C5 D1 of treatment. Labs done 09/21 reviewed. Port accessed, good blood return. Pt premedicated with Benadryl, Zofran, and Dexamethasone IV, and Tylenol po as ordered. Pt took her own po emend from home. Pt states feels good. Only complaint is some burning in her fingertips. Continues to use moisturizer. Treatment done and pt tolerated well. Scheduled to return tomorrow for pump take down and Neulasta.
--- NOTE | 2020-09-23 15:32 | MHC.HEMONC ---
Pt here for pump take down, and neulasta. States feels fine after treatment. Port flushed with heparin and deaccessed. Neulasta injection given, pt tolerated well.
[2020-09-29 10:27] LABS: MANUAL DIFF FLAG NO
[2020-09-29 10:30] LABS: Basophils Percent Auto 0.3 % (0-2); Eosinophils Percent Auto 0.3 % (0-4); Hematocrit 33.2 % (37-47); Hemoglobin 10.9 g/dl (12.0-16.0); Imm Gran Abs Auto 0.03 X10*3/uL (0.00-0.03); Imm Gran Pct Auto 0.5 % (0.0-0.4); Lymphocytes Percent Auto 15.5 % (20-40); Mean Corpuscular HGB Conc 32.8 g/dl (31.0-35.0); Mean Corpuscular Hemoglobin 30.5 pg (27.0-33.0); Mean Platelet Volume 10.5 fL (9.4-12.3); Monocytes Absolute Auto 0.5 X10*3/uL (0.1-1.2); Monocytes Percent Auto 7.4 % (2-11); Neutrophils Absolute Auto 4.7 X10*3/uL (2.0-8.3); Platelet Count 179 X10*3/uL (160-400); Red Blood Count 3.57 X10*6/uL (4.20-5.50); Red Cell Distribution Width 14.4 % (11.0-16.0); White Blood Count 6.2 X10*3/uL (4.8-10.8)
[2020-09-29 10:59] LABS: Alanine Aminotransferase 23 U/L (0-31); Alkaline Phosphatase 119 U/L (39-117); Anion Gap 12 (12-20); Aspartate Amino Transferase 25 U/L (5-31); Bilirubin Total 0.5 mg/dL (0.0-1.0); Blood Urea Nitrogen 8 mg/dL (9-16); Calcium 9.2 mg/dL (8.4-10.2); Carbon Dioxide 26 mmol/L (22-29); Chloride 105 mmol/L (96-108); Estimated Glomerular Filt Rate > 60; Glucose Random 104 mg/dL (60-115); Sodium 139 mmol/L (135-145); Total Protein 6.1 g/dL (6.5-8.0)
[2020-10-06 08:41] VITALS: BP 143/70; PULSE 94; RESP 18; TEMP 36.3; O2SAT 96; BMI 23.8
[2020-10-06 09:46] LABS: Basophils Percent Auto 0.2 % (0-2); Eosinophils Percent Auto 0.3 % (0-4); Hematocrit 31.5 % (37-47); Hemoglobin 10.1 g/dl (12.0-16.0); Imm Gran Abs Auto 0.08 X10*3/uL (0.00-0.03); Imm Gran Pct Auto 1.4 % (0.0-0.4); Lymphocytes Absolute Auto 0.9 X10*3/uL (1.2-4.9); Lymphocytes Percent Auto 15.8 % (20-40); MANUAL DIFF FLAG NO; Mean Corpuscular HGB Conc 32.1 g/dl (31.0-35.0); Mean Corpuscular Hemoglobin 30.7 pg (27.0-33.0); Mean Corpuscular Volume 95.7 fL (80-98); Monocytes Absolute Auto 0.4 X10*3/uL (0.1-1.2); Monocytes Percent Auto 7.2 % (2-11); Neutrophils Absolute Auto 4.4 X10*3/uL (2.0-8.3); Neutrophils Percent Auto 75.1 % (45-73); Platelet Count 163 X10*3/uL (160-400); Red Blood Count 3.29 X10*6/uL (4.20-5.50); Red Cell Distribution Width 15.1 % (11.0-16.0); White Blood Count 5.8 X10*3/uL (4.8-10.8)
[2020-10-06 10:13] LABS: Alanine Aminotransferase 18 U/L (0-31); Albumin Level 3.8 g/dL (3.5-5.0); Alkaline Phosphatase 95 U/L (39-117); Anion Gap 13 (12-20); Aspartate Amino Transferase 25 U/L (5-31); Bilirubin Total 0.2 mg/dL (0.0-1.0); Blood Urea Nitrogen 9 mg/dL (9-16); Calcium 9.1 mg/dL (8.4-10.2); Carbon Dioxide 25 mmol/L (22-29); Chloride 107 mmol/L (96-108); Creatinine Clr Calc Pharmacy 87.6; Estimated Glomerular Filt Rate > 60; Glucose Random 100 mg/dL (60-115); Potassium 3.9 mmol/L (3.3-5.1); Sodium 141 mmol/L (135-145); Total Protein 5.9 g/dL (6.5-8.0)
[2020-10-06] MEDS: Famotidine/PF 20 MG/2 ML VIAL IVPUSH (10:31)
[2020-10-06] MEDS: ondansetron HCL/NS 16 MG/50 ML PIGGYBACK 200 MG IV (10:33)
[2020-10-06] MEDS: Acetaminophen 325 MG TABLET 650 MG PO (10:34)
[2020-10-06] MEDS: diphenhydrAMINE HCL 50 MG/ML VIAL IVPUSH (10:55)
[2020-10-06] MEDS: dexAMETHasone sod phosphate/NS 12 MG/50 ML PIGGYBACK 200 MG IV (11:17)
--- NOTE | 2020-10-06 15:42 | MHC.HEMONC ---
Pt here for C6 D1 of treatment. States feeling good after last treatment. Port accessed with good blood return noted. Labs drawn and reviewed. Premedicated as ordered. Pt also takes aprepitant brought in from home. Treatment done and pt tolerated well. Home with infusion pump. Will return in 24 hours for take down and neulasta.
[2020-10-07 15:26] VITALS: BP 126/61; PULSE 92; RESP 18; TEMP 36.7; O2SAT 99; BMI 23.5
--- NOTE | 2020-10-07 15:44 | MHC.HEMONC ---
Pump taken down, neulasta given as ordered. Pt states had a very good night. Scheduled to return for labs on Thursday 10/12
[2020-10-12 09:59] LABS: Hematocrit 31.1 % (37-47); Hemoglobin 10.1 g/dl (12.0-16.0); Mean Corpuscular HGB Conc 32.5 g/dl (31.0-35.0); Mean Corpuscular Hemoglobin 30.4 pg (27.0-33.0); Mean Corpuscular Volume 93.7 fL (80-98); Mean Platelet Volume 9.4 fL (9.4-12.3); Platelet Count 119 X10*3/uL (160-400); Red Blood Count 3.32 X10*6/uL (4.20-5.50); Red Cell Distribution Width 14.6 % (11.0-16.0); White Blood Count 7.6 X10*3/uL (4.8-10.8)
[2020-10-12 10:27] LABS: Alanine Aminotransferase 16 U/L (0-31); Albumin Level 3.9 g/dL (3.5-5.0); Alkaline Phosphatase 128 U/L (39-117); Anion Gap 11 (12-20); Aspartate Amino Transferase 27 U/L (5-31); Bilirubin Total 0.6 mg/dL (0.0-1.0); Blood Urea Nitrogen 6 mg/dL (9-16); Calcium 9.2 mg/dL (8.4-10.2); Carbon Dioxide 26 mmol/L (22-29); Chloride 106 mmol/L (96-108); Estimated Glomerular Filt Rate > 60; Glucose Random 132 mg/dL (60-115); Sodium 139 mmol/L (135-145); Total Protein 5.9 g/dL (6.5-8.0)
[2020-10-12 10:55] LABS: Band Neutrophils Percent 8 % (3-5); Lymphocytes Absolute Manual 1.3 X10*3/uL (0.6-4.8); Lymphocytes Percent Manual 17 % (20-40); Monocytes Absolute Manual 0.5 X10*3/uL (0.0-1.2); Monocytes Percent Manual 6 % (2-11); Neutrophils Absolute Manual 5.9 X10*3/uL (2.2-7.9); Neutrophils Percent Manual 69 % (45-73); Platelet Estimate DECREASED (NORMAL); Platelet Morphology Comment NORMAL
[2020-10-12 10:57] LABS: Ovalocytes 1+ (5-14) /OIF; RBC Morphology NOTED; Tear Drop Cells 1+ (0-2) /OIF
--- NOTE | 2020-10-13 16:43 | HO.HEMONCPA ---
PA FOR PET SCAN SUBMITTED ON 10/06/20 DENIED PER EVICORE.An alternative recommendation has been made for the following CPT codes: 91053-UA CHEST; with contrast, 18582-OC ABDOMEN and PELVIS; with contrast.
[2020-10-19 08:48] LABS: MANUAL DIFF FLAG NO
[2020-10-19 08:54] LABS: Basophils Percent Auto 0.3 % (0-2); Eosinophils Percent Auto 0.5 % (0-4); Hematocrit 36.1 % (37-47); Hemoglobin 11.4 g/dl (12.0-16.0); Imm Gran Abs Auto 0.17 X10*3/uL (0.00-0.03); Imm Gran Pct Auto 2.8 % (0.0-0.4); Lymphocytes Percent Auto 16.7 % (20-40); Mean Corpuscular HGB Conc 31.6 g/dl (31.0-35.0); Mean Corpuscular Hemoglobin 30.3 pg (27.0-33.0); Monocytes Absolute Auto 0.5 X10*3/uL (0.1-1.2); Neutrophils Absolute Auto 4.4 X10*3/uL (2.0-8.3); Neutrophils Percent Auto 71.7 % (45-73); Platelet Count 153 X10*3/uL (160-400); Red Blood Count 3.76 X10*6/uL (4.20-5.50); Red Cell Distribution Width 15.5 % (11.0-16.0); White Blood Count 6.2 X10*3/uL (4.8-10.8)
[2020-10-19 09:31] LABS: Alanine Aminotransferase 19 U/L (0-31); Albumin Level 4.2 g/dL (3.5-5.0); Alkaline Phosphatase 111 U/L (39-117); Anion Gap 13 (12-20); Aspartate Amino Transferase 30 U/L (5-31); Bilirubin Total 0.4 mg/dL (0.0-1.0); Blood Urea Nitrogen 7 mg/dL (9-16); Calcium 9.6 mg/dL (8.4-10.2); Carbon Dioxide 27 mmol/L (22-29); Chloride 106 mmol/L (96-108); Creatinine Clr Calc Pharmacy 83.1; Estimated Glomerular Filt Rate > 60; Glucose Random 82 mg/dL (60-115); Potassium 4.5 mmol/L (3.3-5.1); Sodium 141 mmol/L (135-145); Total Protein 6.4 g/dL (6.5-8.0)
[2020-10-20 08:54] VITALS: BP 122/71; PULSE 92; RESP 18; TEMP 36.6; O2SAT 97; BMI 23.4
[2020-10-20] MEDS: Famotidine/PF 20 MG/2 ML VIAL IVPUSH (10:01)
[2020-10-20] MEDS: ondansetron HCL/NS 16 MG/50 ML PIGGYBACK 200 MG IV (10:02)
[2020-10-20] MEDS: dexAMETHasone sod phosphate/NS 12 MG/50 ML PIGGYBACK 200 MG IV (10:20)
--- NOTE | 2020-10-20 14:55 | MHC.HEMONC ---
Pt here for Cycle 7 day 1 of Docetaxel/5 FU/Leucovorin/Oxaliplatin. Labs drawn yesterday reviewed. Port accessed with blood return noted. 0.9% NS infusing. Fingernails discolored, skin on fingers discolored, some peeling of skin noted. Pt pre medicated with oral emend, pepcid 20mg IV, Benadryl 50mg, Zofran 16mg IV, Decadron 12mg IV, tylenol 650mg orally.Docetaxel/Leucovorin/Oxaliplatin IV given as ordered-tolerated well. 5-FU infusing via home chemo pump. Discharge instructions, post chemo treatment care and follow up appointment given. Discharged home.
[2020-10-21 14:49] VITALS: BP 124/58; PULSE 85; RESP 18; TEMP 36.4; O2SAT 98; BMI 23.4
--- NOTE | 2020-10-21 15:18 | MHC.HEMONC ---
Pt here for 5FU takedown and Neulasta injection. She is tolerating meds well and received good news from her recent CT.
--- NOTE | 2020-10-29 11:52 | MHC.HEMONC ---
Janice from Dr. Blanco's office([facility]) called requesting for last CT scan reports, and 's visit report. Documents were faxed to Janice. Janice also informed me that Dr. Blanco will see the patient, his office is working on an appt. date & time.
--- NOTE | 2020-10-29 12:02 | MHC.HEMONCSW ---
Zahira Lovett called at [phone] regarding her Father's Prostate Cancer Funding. She recieved a notice stating funding was expiring on 11/13/20. I spoke with Zahira. She will be faxing me the document to complete.
[2020-11-02 10:06] LABS: MANUAL DIFF FLAG NO
[2020-11-02 10:10] LABS: Basophils Percent Auto 0.1 % (0-2); Eosinophils Percent Auto 0.3 % (0-4); Hemoglobin 10.8 g/dl (12.0-16.0); Imm Gran Pct Auto 1.4 % (0.0-0.4); Lymphocytes Absolute Auto 1.3 X10*3/uL (1.2-4.9); Lymphocytes Percent Auto 18.1 % (20-40); Mean Corpuscular HGB Conc 31.8 g/dl (31.0-35.0); Mean Corpuscular Hemoglobin 30.3 pg (27.0-33.0); Mean Corpuscular Volume 95.5 fL (80-98); Mean Platelet Volume 9.5 fL (9.4-12.3); Monocytes Absolute Auto 0.6 X10*3/uL (0.1-1.2); Monocytes Percent Auto 8.2 % (2-11); Neutrophils Percent Auto 71.9 % (45-73); Platelet Count 146 X10*3/uL (160-400); Red Blood Count 3.56 X10*6/uL (4.20-5.50); Red Cell Distribution Width 15.7 % (11.0-16.0)
[2020-11-02 10:46] LABS: Alanine Aminotransferase 13 U/L (0-31); Alkaline Phosphatase 109 U/L (39-117); Anion Gap 8 (12-20); Aspartate Amino Transferase 26 U/L (5-31); Bilirubin Total 0.5 mg/dL (0.0-1.0); Blood Urea Nitrogen 10 mg/dL (9-16); Calcium 9.3 mg/dL (8.4-10.2); Carbon Dioxide 29 mmol/L (22-29); Chloride 107 mmol/L (96-108); Creatinine Clr Calc Pharmacy 80.4; Estimated Glomerular Filt Rate > 60; Glucose Random 81 mg/dL (60-115); Potassium 4.7 mmol/L (3.3-5.1); Sodium 139 mmol/L (135-145); Total Protein 6.1 g/dL (6.5-8.0)
--- NOTE | 2020-11-02 13:05 | PM.HEMONCPN ---
Medical Summary - Medical Summary Date of Service: 11/02/20 Chief complaint: follow-up for gastric carcinoma. Medical Summary: DIAGNOSIS: GASTRIC CARCINOMA. CURRENT THERAPY: FLOT CHEMOTHERAPY, CYCLE 4, day 15, Tomorrow. Interval History Interval history: Sheryl Espinoza is a pleasant 64 year old lady here for labs and an unscheduled visit. She is not been feeling too well. Her fingernails hurt. Especially the left thumb. she has a throbbing constant pain, there. It is tender. The nails themselves are discolored and disfigured. Same with the toenails. Prior to this, she has been tolerating the chemotherapy quite well. She denies any significant nausea or vomiting. She says she does get tired on the weekend after she completes the Decadron therapy. The right-sided chest pain has resolved. Denies any chest pain or trouble with breathing. She denies abdominal pain, nor nausea. She had dyspepsia but omeprazole has been helping. She denies diarrhea. Denies gross blood in the stools. She enjoys a good appetite, however she has noticed that she feels a full if she tries to eat a lot, in one sitting. It makes her feel nauseous. She has lost weight. She is in good spirits. Rest of the review of systems is unremarkable. She does try to work out every day. Previous history: She was admitted to the hospital back towards the end of February,, with symptoms of acute diverticulitis and UTI. She had presented with 3 days history of left flank pain and dysuria. Abdominal pain was accompanied by decreased appetite nausea and 1 episode of vomiting on 02/27. CT scan of the abdomen revealed: 1.Short segment mural thickening and pericolonic infiltrative changes in the proximal descending colon most consistent with acute diverticulitis or short segment colitis. 2. Mild left pelvo- caliectasis, without obstructing abnormality could be secondary to left ureteropelvic junction stenosis. Left renal cyst demonstrated benign features. Nonobstructing right upper pole intrarenal calculus. 3. mild free fluid in the pelvis is presumed secondary to colonic findings. 4. Very small hiatus hernia. Patient was started on IV antibiotics and admitted. In addition she was noted to have a urinary tract infection. Blood cultures showed Gram-negative rods, likely bacteremia from the UTI. She did note improvement from abdominal pain from 10/10 to 4/10 the following day. She also complained of heartburn and odynophagia of for a few days. She was seen by GI. Recommendation was to continue IV antibiotics until abdominal pain improves. Start oral omeprazole for heartburn and odynophagia. To be scheduled for an upper endoscopy and colonoscopy, in 5-6 weeks time, after resolution of the diverticulitis. This was done on 04/24. Pathology revealed: Stomach body biopsy: Poorly differentiated carcinoma. Morphology and immunophenotype are not 100% specific but raise the possibility of metastatic lobular carcinoma of the breast. Other primary sources include gastric and other upper GI locations. ROS: She denies easy fatigability. Her appetite is good. She has lost some weight. One hundred fifty down to 135 lb. Denies headache no dizziness. No chest pain or trouble breathing. No cough nor shortness of breath no chest pain. She had some dyspepsia type symptoms when she was in house. The omeprazole has taken care of these. Occasional cramping prior to bowel movement. Denies diarrhea. Denies gross blood in the stools. She never had a previous colonoscopy. She had recent UTI symptoms. These have resolved. She has arthritis involving her knees. Denies any focal weakness. No depression/anxiety. Family history: Dad had pancreatic cancer at the age of 67. Mom had non-Hodgkin's lymphoma. 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 She has 3 children. She smoked as a teenager. She rarely drinks. Review of Systems - Constitutional Reports no additional constitutional complaints, Reports lack of energy, Reports malaise, Reports weight loss - Eyes Reports no additional eye complaints, Denies blurry vision - ENT Reports no additional ear, nose, mouth, and throat complaints, Reports hearing normal - Cardiovascular Reports no additional cardiovascular complaints, Denies bluish discoloration of hand/feet, Denies chest pain - Respiratory Reports no additional respiratory complaints - Gastrointestinal Reports no additional gastrointestinal complaints - Genitourinary Reports no additional female genitourinary complaints - Musculoskeletal Reports no additional musculoskeletal complaints - Integumentary/Breasts Skin/Breast: Reports no additional skin complaints, Reports nail changes - Neurologic Reports no additional neurologic complaints - Psychiatric Reports no additional psychiatric complaints - Endocrine Reports no additional endocrine complaints - Hematologic/Lymphatic Reports no additional hematologic/lymphatic complaints - Allergic/Immunologic Reports no additional allergic/immunologic complaints [facility] Medical History: Medical History (Last Updated 06/22/20 @ 16:11 by Zachary Clark MD) History of cellulitis Hx of diverticulitis of colon Hypercholesterolemia Lab test negative for COVID-19 virus Type 2 diabetes mellitus with hyperglycemia Functional capacity: independent ambulation Patient : No Family History: Family History (Last Updated 05/11/20 @ 08:02 by Laquita Gaytan) Father Pancreatic cancer Mother NHL (non-Hodgkin's lymphoma) Maternal Grandfather Prostate cancer Maternal Grandmother Diabetes Heart disease Paternal Grandfather Diabetes Son Asthma Surgical History: Surgical History (Last Updated 05/14/20 @ 13:21 by PARTH Monzon) H/O tubal ligation History of esophagogastroduodenoscopy (EGD) Hx of appendectomy Hx of colonoscopy Hx of tonsillectomy S/P cholecystectomy Onset Date: ~1988 S/P right knee arthroscopy Onset Date: ~2002 Social History: Social History (Last Updated 06/15/20 @ 16:43 by Zachary Clark MD) Living Situation History: Household Members: Spouse Household Members: Children Housing: House Are you a primary pet care assistant to a significant other at home: No Do you presently have visiting nurse or other home services: No Alcohol History: Alcohol intake: current Alcohol History Details: Alcohol intake frequency: holiday/special occasion Tobacco History: Second Hand Smoke Exposure: No Substance Use History: Use of substances other than those prescribed or required for medical reasons: No Domestic Abuse History: Have you been hit, kicked, punched, or otherwise hurt by someone within the past year? 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 Performance Status ECOG Performance Status: 0 Home Medications and Allergies Home Medications Medication Instructions Recorded Confirmed Type multivitamin 1 tab PO DAILY 05/11/20 08/31/20 History Allergies Allergy/AdvReac Type Severity Reaction Status Date / Time meperidine [From Demerol] Allergy Severe Swelling Verified 08/31/20 15:21 Exam Vital signs: Vital Signs Temp 97.6 F 10/21/20 14:49 Pulse 85 10/21/20 14:49 Resp 18 10/21/20 14:49 BP 124/58 L 10/21/20 14:49 Pulse Ox 98 10/21/20 14:49 Weight 62 kg Body Mass Index 23.4 - Constitutional Present: no acute distress - Routine HEENT Exam Head: Present: normal inspection Eye: Present: normal appearance ENT: Present: mucous membranes moist - Routine Neck Exam Present: full ROM - Routine Respiratory Exam Present: CTAB - Routine Cardiovascular Exam Cardiovascular: Present: RRR, S1, S2 - Routine Abdominal Exam Present: soft, nontender - Routine Rectal Exam Patient deferred: digital exam - Routine Extremities Exam Present: nontender - Routine Back/Spine/Pelvis Exam Back/Spine: Present: full ROM - Routine Skin Exam Present: intact Comments: Nails are discolored and disfigured. Left thumb nail is elevated and tender. Concern is underlying nail bed infection. - Routine Neurological Exam Present: alert, oriented X3, vision grossly intact - Detailed Neurological Exam: Coma Scale Eye Opening: Spontaneous (4) - Routine Psychiatric Exam Present: normal affect Data - Labs CBC & Chem 7: 11/02/20 09:58 11/02/20 09:58 Labs: 05/11/20 09:12 CA 27.29 Routine Carcinoembryonic Antigen Routine Complete Blood Count Auto Diff Routine Comprehensive Met. Panel Routine 06/02/20 09:52 CMP [Comprehensive Met. Panel] Routine Complete Blood Count Auto Diff Routine Prothrombin Time INR Routine Laboratory Last Values WBC 3.5 X10*3/uL (4.8-10.8) L 06/02/20 09:52 RBC 4.00 X10*6/uL (4.20-5.50) L 06/02/20 09:52 Hgb 12.1 g/dl (12.0-16.0) 06/02/20 09:52 Hct 36.7 % (37-47) L 06/02/20 09:52 MCV 91.8 fL (80-98) 06/02/20 09:52 MCH 30.3 pg (27.0-33.0) 06/02/20 09:52 MCHC 33.0 g/dl (31.0-35.0) 06/02/20 09:52 RDW 12.6 % (11.0-16.0) 06/02/20 09:52 Plt Count 161 X10*3/uL (160-400) 06/02/20 09:52 MPV 10.2 fL (9.4-12.3) 06/02/20 09:52 Immature Gran % (Auto) 0.3 % (0.0-0.4) 06/02/20 09:52 Neut % (Auto) 59.8 % (45-73) 06/02/20 09:52 Lymph % (Auto) 32.5 % (20-40) 06/02/20 09:52 Cochran % (Auto) 5.1 % (2-11) 06/02/20 09:52 Eos % (Auto) 1.7 % (0-4) 06/02/20 09:52 Baso % (Auto) 0.6 % (0-2) 06/02/20 09:52 Lymph # (Auto) 1.2 X10*3/uL (1.2-4.9) 06/02/20 09:52 Cochran # (Auto) 0.2 X10*3/uL (0.1-1.2) 06/02/20 09:52 Eos # (Auto) 0.1 X10*3/uL (0.0-0.4) 06/02/20 09:52 Baso # (Auto) 0.0 X10*3/uL (0.0-0.2) 06/02/20 09:52 Abs Immat Gran (auto) 0.01 X10*3/uL (0.00-0.03) 06/02/20 09:52 Absolute Neuts (auto) 2.1 X10*3/uL (2.0-8.3) 06/02/20 09:52 Absolute Nucleated RBC 0.000 X10*3/uL (0.0-0.012) 06/02/20 09:52 Nucleated RBC % (auto) 0.0 /100WBC (0.0-0.2) 06/02/20 09:52 PT 11.7 SEC (10.8-13.0) 06/02/20 09:52 INR 1.0 (0.9-1.1) 06/02/20 09:52 Sodium 140 mmol/L (135-145) 06/02/20 09:52 Potassium 4.2 mmol/l (3.3-5.1) 06/02/20 09:52 Chloride 102 mmol/L (96-108) 06/02/20 09:52 Carbon Dioxide 31 mmol/L (22-29) H 06/02/20 09:52 Anion Gap 11 (12-20) L 06/02/20 09:52 BUN 9 mg/dL (9-16) 06/02/20 09:52 Creatinine 0.81 mg/dL (0.5-1.4) 06/02/20 09:52 Estim Creat Clear Calc 60.5 06/02/20 09:52 Estimated GFR > 60 06/02/20 09:52 Random Glucose 306 mg/dL (60-115) H 06/02/20 09:52 Calcium 9.7 mg/dL (8.4-10.2) 06/02/20 09:52 Total Bilirubin 0.6 mg/dL (0.0-1.0) 06/02/20 09:52 AST 17 U/L (5-31) 06/02/20 09:52 ALT 13 U/L (0-31) 06/02/20 09:52 Alkaline Phosphatase 90 U/L (39-117) 06/02/20 09:52 Total Protein 7.3 g/dL (6.5-8.0) 06/02/20 09:52 Albumin 4.6 g/dL (3.5-5.0) 06/02/20 09:52 Carcinoembryonic Ag 5.10 mg/mL 05/11/20 09:12 CA 27-29 103 U/mL (<38) H 05/11/20 09:12 Progress Note: A/P (1) Gastric cancer Status: Inactive (2) Gastric cancer Status: Acute Assessment and plan: This is a pleasant 64-year-old lady with a history of diabetes and diverticulosis. She had epigastric pain, off and on for a few months. She tells me she had GERD symptoms however she stopped eating sweets and those resolved. This was about 13 years ago. She was started on omeprazole recently which has been helping. Back in February she was admitted with a bout of diverticulitis. CT scan of the abdomen revealed: 1. Short segment mural thickening and pericolonic infiltrative changes in the proximal descending colon most consistent with acute diverticulitis or short segment colitis as a definitive diverticulum is not seen. 2. Mild left pelvocaliectasis without obstructing abnormality could be secondary to left ureteropelvic junction stenosis. Left renal cysts demonstrate benign features. Nonobstructing right upper pole intrarenal calculus. 3. Mild free fluid in the pelvis is presumed secondary to the colonic findings. 4. Very small hiatal hernia. Subsequently an upper endoscopy and colonoscopy was arranged. This was done on 04/[address] Fields. Colonoscopy was negative however upper endoscopy revealed: Poorly differentiated carcinoma, in the stomach. Possibility of metastatic lobular carcinoma of the breast was raised. Her breast exam was normal however, she tells me she has not had a mammogram in about 20 years. As per NCCN guidelines workup for gastric carcinoma that is recommended includes: 1. PET scan. 2. Endoscopic ultrasound to determine if disease is early versus locally advanced stage. She was sent over to the [facility] to have a mammogram: No mammographic evidence of malignancy. I checked baseline labs, including the tumor markers: CEA 5.1, Ca 27.29 103. l proceeded with a PET scan for staging. This revealed: No foci of abnormal FDG activity are visualized. There are no abnormalities visualized suspicious for metastatic or other malignant lesions. l requested endoscopic ultrasound for exact pathological staging. This was scheduled at [facility], by Dr. Blanco. The area of abnormality was very subtle. He took several biopsies. Unfortunately they came back positive. She has seen Dr. Rajan, to consider surgery by minimally invasive method. It was decided to proceed with FLOT chemotherapy in the neoadjuvant setting. She was started on it a few months ago. She has tolerated it reasonably well. She had a CT scan of the chest abdomen pelvis on 10/19 which revealed: remarkable CT chest with no pulmonary nodule or mass. Right central venous port tip is in the distal SVC. Moderate sized hiatal hernia. There is a large stool in the colon suggestive of severe constipation. No abnormal sized abdominal lymph nodes seen. Distended urinary bladder. She is here for labs with chemo due tomorrow. 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 She has had nail bed infection of the left thumb. PLAN: I will give her a course of antibiotic: Keflex for 7-10 days, till it clears. She will probably need endoscopic since imaging was not very helpful. This has been scheduled on November [address] Blanco. Will make further plans based upon the findings, on the above exam. Hopefully she will have a complete remission with chemotherapy and will be able to proceed with surgery. She will return in a month for a follow-up visit. Thank you, CC: Dr. Clark. Dr. Fields. Dr. De Leon. Dr. Rajan - Time Spent With Patient 25 - 35 minutes
[2020-11-03 08:03] VITALS: BP 123/65; PULSE 83; RESP 18; TEMP 36.7; O2SAT 98; BMI 23.3
--- NOTE | 2020-11-03 09:32 | MHC.HEMONC ---
Pt here for Cycle 8 day 1 Docetaxel/Oxaliplatin/Leucovorin/5-FU. Port noted to have pink edges-open skin in center with clear disc center. Dr Cisneros notified of port appearance. Dr Cisneros into see pt. Pt escorted to Dr Mata office for port visualization. Pt returned to unit-Okay to use port per Dr Mata. Plan for IV Ancef 1GM now and possible closure of skin around port per Dr Mata. Port accessed with blood return. Labs drawn yesterday reviewed. I GM Ancef IV started as ordered. Finger nails and toenails thick and discolored, skin on fingers discolored. Pt states fingers are painful-takes tylenol and motrin for discomfort.
[2020-11-03] MEDS: Famotidine/PF 20 MG/2 ML VIAL IVPUSH (10:03)
[2020-11-03] MEDS: ondansetron HCL/NS 16 MG/50 ML PIGGYBACK 200 MG IV (10:05)
[2020-11-03] MEDS: diphenhydrAMINE HCL 50 MG/ML VIAL 25 MG IVPUSH (10:30)
[2020-11-03] MEDS: dexAMETHasone sod phosphate/NS 12 MG/50 ML PIGGYBACK 200 MG IV (10:52)
--- NOTE | 2020-11-03 15:16 | MHC.HEMONC ---
Pt here for C8 D1 of treatment. Labs done 11/02 reviewed. See previous note regarding port. Pre meds given as ordered. Pt took own oral emend. Treatment done and pt tolerated well. Home with infusion pump. Will return 11/04 for take down and neulasta.
--- NOTE | 2020-11-04 15:23 | MHC.HEMONC ---
Pt here for pump take down and neulasta. States tolerated treatment well. Port deaccessed. Area covered, and pt to apply neosporin ointment. Neulasta given as ordered. Will return in 1 week for lab draw.
[2020-11-10 11:26] LABS: MANUAL DIFF FLAG NO
[2020-11-10 11:35] LABS: Basophils Percent Auto 0.3 % (0-2); Eosinophils Percent Auto 0.2 % (0-4); Hematocrit 31.7 % (37-47); Hemoglobin 10.3 g/dl (12.0-16.0); Imm Gran Abs Auto 0.04 X10*3/uL (0.00-0.03); Imm Gran Pct Auto 0.7 % (0.0-0.4); Lymphocytes Absolute Auto 0.7 X10*3/uL (1.2-4.9); Lymphocytes Percent Auto 12.6 % (20-40); Mean Corpuscular HGB Conc 32.5 g/dl (31.0-35.0); Mean Corpuscular Hemoglobin 30.7 pg (27.0-33.0); Mean Corpuscular Volume 94.3 fL (80-98); Mean Platelet Volume 10.5 fL (9.4-12.3); Monocytes Absolute Auto 0.4 X10*3/uL (0.1-1.2); Monocytes Percent Auto 6.1 % (2-11); Neutrophils Absolute Auto 4.7 X10*3/uL (2.0-8.3); Neutrophils Percent Auto 80.1 % (45-73); Platelet Count 112 X10*3/uL (160-400); Red Blood Count 3.36 X10*6/uL (4.20-5.50); White Blood Count 5.9 X10*3/uL (4.8-10.8)
[2020-11-10 12:17] LABS: Alanine Aminotransferase 14 U/L (0-31); Albumin Level 3.7 g/dL (3.5-5.0); Alkaline Phosphatase 116 U/L (39-117); Anion Gap 11 (12-20); Aspartate Amino Transferase 26 U/L (5-31); Bilirubin Total 0.4 mg/dL (0.0-1.0); Blood Urea Nitrogen 5 mg/dL (9-16); Carbon Dioxide 26 mmol/L (22-29); Chloride 104 mmol/L (96-108); Creatinine Clr Calc Pharmacy 83.1; Estimated Glomerular Filt Rate > 60; Glucose Random 153 mg/dL (60-115); Potassium 3.9 mmol/L (3.3-5.1); Sodium 137 mmol/L (135-145); Total Protein 5.8 g/dL (6.5-8.0)
--- NOTE | 2020-11-10 13:02 | MHC.HEMONC ---
Pt here for lab draw. Skin around port continues to be reddened. No drainage noted. Port exposed. Pt brought to radiology, and port assessed by Dr Ann. Will need to have port removed, and new port placed. Pt to continue to take antibiotics until procedure done. Radiology to schedule and will call pt.
--- NOTE | 2020-12-23 11:53 | MHC.HEMONC ---
pt called to report that she is having partial gastrectomy tomorrow by Dr Rajan.
--- NOTE | 2021-01-18 09:45 | MHC.HEMONC ---
I called pt to see how she was doing post gastrectomy. She has less pain and conts to tahir po but unable to take solids in. She is taking supplements and maintaining weight. She is seing Dr Rajan later this month and I made a follow-up here with Dr Cisneros on the .
--- NOTE | 2021-02-01 04:00 | MHC.HEMONCMA ---
Pt came in for onc follow up and states she is doing well. clinical summary was updated and labs were drawn. pt will schedule follow up appointment.
--- NOTE | 2021-02-01 10:55 | P.PNHO_ITS ---
Medical Summary - Medical Summary Date of Service: 02/01/21 Chief complaint: Follow-up for: Gastric carcinoma. Medical Summary: DIAGNOSIS: GASTRIC CARCINOMA. CURRENT THERAPY: FLOT CHEMOTHERAPY, CYCLE 4, day 15. Interval History Interval history: Sheryl Espinoza is a pleasant 64 year old lady here for a follow-up visit. She had surgery done in the interim. She initially had an endoscopic ultrasound by Dr. Blanco, in November. There were no lesions seen. The random biopsies of the stomach lining were negative. She then underwent surgery on 12/[address] Rajan. 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 Tumor site: Residual tumor most prominent along the greater curvature. Tumor size: A distinct tumor mass is not identified grossly. 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 Histologic type: Diffuse type(signet ring carcinoma.) Histologic grade: G3, poorly differentiated. Tumor extension: Tumor invades mucosa, submucosa, muscularis propria and subserosal connective tissue, extending to the peritoneal surface.(pT4a.) Margins: Final anastomotic do not appear negative for carcinoma. Residual carcinoma is identified in en face sections of the proximal margin.(discohesive tumor cells in the submucosa.) Treatment effect: Evident tumor regression but with extensive residual carcinoma, (partial response, score 2-3. LV I: Identified. Additional findings: Extensive tumor infiltrates omental adipose tissue and is present on the peritoneal surface,(pM1). Regional lymph nodes: Number examined: 5. Number positive: 2. Ancillary studies: HER2 fish testing is negative. Pathologic stage: Following preop neoadjuvant therapy. Primary tumor:ypN1. Metastatic disease:ypM1. She was in house for 9 days postop. She is currently in the process of recuperating from the surgery. She is still rather tired. She complains of intermittent pain at the surgical site. She is taking for that. She is trying to optimize her diet. Since her stomach is not there she has to eat soft small meals frequently. She has noticed that if she drinks water 1st and then tries to eat it goes better. She has been taking Reglan which appears to have helped.She has lost weight. She denies diarrhea. Denies gross blood in the stools. Denies any chest pain or trouble with breathing. She had dyspepsia but omeprazole has been helping. She is in good spirits. Rest of the review of systems is unremarkable. She does try to work out every day. Previous history: She was admitted to the hospital back towards the end of February,, with symptoms of acute diverticulitis and UTI. She had presented with 3 days history of left flank pain and dysuria. Abdominal pain was accompanied by decreased appetite nausea and 1 episode of vomiting on 02/27. CT scan of the abdomen revealed: 1.Short segment mural thickening and pericolonic infiltrative changes in the proximal descending colon most consistent with acute diverticulitis or short s egment colitis. 2. Mild left pelvo- caliectasis, without obstructing abnormality could be secondary to left ureteropelvic junction stenosis. Left renal cyst demonstrated benign features. Nonobstructing right upper pole intrarenal calculus. 3. mild free fluid in the pelvis is presumed secondary to colonic findings. 4. Very small hiatus hernia. Patient was started on IV antibiotics and admitted. In addition she was noted to have a urinary tract infection. Blood cultures showed Gram-negative rods, likely bacteremia from the UTI. She did note improvement from abdominal pain from 10/10 to 4/10 the following day. She also complained of heartburn and odynophagia of for a few days. She was seen by GI. Recommendation was to continue IV antibiotics until abdominal pain improves. Start oral omeprazole for heartburn and odynophagia. To be scheduled for an upper endoscopy and colonoscopy, in 5-6 weeks time, after resolution of the diverticulitis. This was done on 04/24. Pathology revealed: Stomach body biopsy: Poorly differentiated carcinoma. Morphology and immunophenotype are not 100% specific but raise the possibility of metastatic lobular carcinoma of the breast. Other primary sources include gastric and other upper GI locations. ROS: She denies easy fatigability. Her appetite is good. She has lost some weight. One hundred fifty down to 135 lb. Denies headache no dizziness. No chest pain or trouble breathing. No cough nor shortness of breath no chest pain. She had some dyspepsia type symptoms when she was in house. The omeprazole has taken care of these. Occasional cramping prior to bowel movement. Denies diarrhea. Denies gross blood in the stools. She never had a previous colonoscopy. She had recent UTI symptoms. These have resolved. She has arthritis involving her knees. Denies any focal weakness. No depression/anxiety. Family history: Dad had pancreatic cancer at the age of 67. Mom had non-Hodgkin's lymphoma. 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 She has 3 children. She smoked as a teenager. She rarely drinks. Review of Systems - Constitutional Reports system reviewed and no additional complaints, except as documented - Eyes Reports system reviewed and no additional complaints, except as documented - ENT Reports system reviewed and no additional complaints, except as documented - Cardiovascular Reports system reviewed and no additional complaints, except as documented - Respiratory Reports no additional respiratory complaints - Gastrointestinal Reports system reviewed and no additional complaints, except as documented - Genitourinary Reports no additional female genitourinary complaints - Musculoskeletal Reports system reviewed and no additional complaints, except as documented - Integumentary/Breasts Skin/Breast: Reports no additional skin complaints - Neurologic Reports system reviewed and no additional complaints, except as documented, Reports hearing normal - Psychiatric Reports system reviewed and no additional complaints, except as documented - Endocrine Reports no additional endocrine complaints - Hematologic/Lymphatic Reports system reviewed and no additional complaints, except as documented - Allergic/Immunologic Reports system reviewed and no additional complaints, except as documented PMFSH Medical History: Medical History (Last Reviewed 02/01/21 @ 11:33 by Toño Scott) History of cellulitis Hx of diverticulitis of colon Hypercholesterolemia Lab test negative for COVID-19 virus Type 2 diabetes mellitus with hyperglycemia Functional capacity: independent ambulation Patient : No Family History: Family History (Last Reviewed 02/01/21 @ 11:33 by Toño Scott) Father Pancreatic cancer Mother NHL (non-Hodgkin's lymphoma) Maternal Grandfather Prostate cancer Maternal Grandmother Diabetes Heart disease Paternal Grandfather Diabetes Son Asthma Surgical History: Surgical History (Last Reviewed 02/01/21 @ 11:33 by Toño Scott) H/O tubal ligation History of esophagogastroduodenoscopy (EGD) History of gastrectomy Hx of appendectomy Hx of colonoscopy Hx of tonsillectomy S/P cholecystectomy Onset Date: ~1988 S/P right knee arthroscopy Onset Date: ~2002 Social History: Social History (Last Reviewed 02/01/21 @ 11:33 by Toño Scott) Living Situation History: Household Members: Spouse Household Members: Children Housing: House Are you a primary technical healthcare consultant to a significant other at home: No Do you presently have visiting nurse or other home services: No Alcohol History: Alcohol intake: current Alcohol History Details: Alcohol intake frequency: holiday/special occasion Tobacco History: Second Hand Smoke Exposure: No Substance Use History: Use of substances other than those prescribed or required for medical reasons : No Domestic Abuse History: Have you been hit, kicked, punched, or otherwise hurt by someone within the past year? 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 Performance Status ECOG Performance Status: 0 Home Medications and Allergies Home Medications Medication Instructions Recorded Confirmed Type multivitamin 1 tab PO DAILY 05/11/20 02/01/21 History Allergies Allergy/AdvReac Type Severity Reaction Status Date / Time meperidine [From Demerol] Allergy Severe Swelling Verified 11/20/20 07:04 Exam Vital signs: Vital Signs Temp 98.0 F 11/03/20 08:03 Pulse 83 11/03/20 08:03 Resp 18 11/03/20 08:03 BP 123/65 11/03/20 08:03 Pulse Ox 98 11/03/20 08:03 Weight 61.7 kg Body Mass Index 23.3 - Constitutional Present: no acute distress - Routine HEENT Exam Head: Present: normal inspection Eye: Present: normal appearance ENT: Present: mucous membranes moist - Routine Neck Exam Present: full ROM - Routine Respiratory Exam Present: CTAB - Routine Cardiovascular Exam Cardiovascular: Present: RRR, S1, S2 - Routine Abdominal Exam Present: soft, nontender - Routine Rectal Exam Patient deferred: digital exam - Routine Extremities Exam Present: nontender - Routine Back/Spine/Pelvis Exam Back/Spine: Present: full ROM - Routine Skin Exam Present: intact - Routine Neurological Exam Present: alert, oriented X3, vision grossly intact - Detailed Neurological Exam: Coma Scale Eye Opening: Spontaneous (4) - Routine Psychiatric Exam Present: normal affect Data - Labs CBC & Chem 7: 02/01/21 11:46 02/01/21 11:46 Labs: 05/11/20 09:12 CA 27.29 Routine Carcinoembryonic Antigen Routine Complete Blood Count Auto Diff Routine Comprehensive Met. Panel Routine 06/02/20 09:52 CMP [Comprehensive Met. Panel] Routine Complete Blood Count Auto Diff Routine Prothrombin Time INR Routine Laboratory Last Values WBC 3.5 X10*3/uL (4.8-10.8) L 06/02/20 09:52 RBC 4.00 X10*6/uL (4.20-5.50) L 06/02/20 09:52 Hgb 12.1 g/dl (12.0-16.0) 06/02/20 09:52 Hct 36.7 % (37-47) L 06/02/20 09:52 MCV 91.8 fL (80-98) 06/02/20 09:52 MCH 30.3 pg (27.0-33.0) 06/02/20 09:52 MCHC 33.0 g/dl (31.0-35.0) 06/02/20 09:52 RDW 12.6 % (11.0-16.0) 06/02/20 09:52 Plt Count 161 X10*3/uL (160-400) 06/02/20 09:52 MPV 10.2 fL (9.4-12.3) 06/02/20 09:52 Immature Gran % (Auto) 0.3 % (0.0-0.4) 06/02/20 09:52 Neut % (Auto) 59.8 % (45-73) 06/02/20 09:52 Lymph % (Auto) 32.5 % (20-40) 06/02/20 09:52 Hill % (Auto) 5.1 % (2-11) 06/02/20 09:52 Eos % (Auto) 1.7 % (0-4) 06/02/20 09:52 Baso % (Auto) 0.6 % (0-2) 06/02/20 09:52 Lymph # (Auto) 1.2 X10*3/uL (1.2-4.9) 06/02/20 09:52 Hill # (Auto) 0.2 X10*3/uL (0.1-1.2) 06/02/20 09:52 Eos # (Auto) 0.1 X10*3/uL (0.0-0.4) 06/02/20 09:52 Baso # (Auto) 0.0 X10*3/uL (0.0-0.2) 06/02/20 09:52 Abs Immat Gran (auto) 0.01 X10*3/uL (0.00-0.03) 06/02/20 09:52 Absolute Neuts (auto) 2.1 X10*3/uL (2.0-8.3) 06/02/20 09:52 Absolute Nucleated RBC 0.000 X10*3/uL (0.0-0.012) 06/02/20 09:52 Nucleated RBC % (auto) 0.0 /100WBC (0.0-0.2) 06/02/20 09:52 PT 11.7 SEC (10.8-13.0) 06/02/20 09:52 INR 1.0 (0.9-1.1) 06/02/20 09:52 Sodium 140 mmol/L (135-145) 06/02/20 09:52 Potassium 4.2 mmol/l (3.3-5.1) 06/02/20 09:52 Chloride 102 mmol/L (96-108) 06/02/20 09:52 Carbon Dioxide 31 mmol/L (22-29) H 06/02/20 09:52 Anion Gap 11 (12-20) L 06/02/20 09:52 BUN 9 mg/dL (9-16) 06/02/20 09:52 Creatinine 0.81 mg/dL (0.5-1.4) 06/02/20 09:52 Estim Creat Clear Calc 60.5 06/02/20 09:52 Estimated GFR > 60 06/02/20 09:52 Random Glucose 306 mg/dL (60-115) H 06/02/20 09:52 Calcium 9.7 mg/dL (8.4-10.2) 06/02/20 09:52 Total Bilirubin 0.6 mg/dL (0.0-1.0) 06/02/20 09:52 AST 17 U/L (5-31) 06/02/20 09:52 ALT 13 U/L (0-31) 06/02/20 09:52 Alkaline Phosphatase 90 U/L (39-117) 06/02/20 09:52 Total Protein 7.3 g/dL (6.5-8.0) 06/02/20 09:52 Albumin 4.6 g/dL (3.5-5.0) 06/02/20 09:52 Carcinoembryonic Ag 5.10 mg/mL 05/11/20 09:12 CA 27-29 103 U/mL (<38) H 05/11/20 09:12 Assessment and Plan Patient Active problem list reviewed?: Yes (1) Gastric cancer Status: Inactive (2) Gastric cancer Problem details: Gastrectomy, omentectomy, esophagojejunostomy, Melyssa-en-Y for gastric cancer Status: Acute Assessment and plan: This is a pleasant 64-year-old lady with a history of diabetes and diverticulosis. She had epigastric pain, off and on for a few months. She tells me she had GERD symptoms however she stopped eating sweets and those resolved. This was about 13 years ago. She was started on omeprazole recently which has been helping. Back in February she was admitted with a bout of diverticulitis. CT scan of the abdomen revealed: 1. Short segment mural thickening and pericolonic infiltrative changes in the proximal descending colon most consistent with acute diverticulitis or short segment colitis as a definitive diverticulum is not seen. 2. Mild left pelvocaliectasis without obstructing abnormality could be secondary to left ureteropelvic junction stenosis. Left renal cysts demonstrate benign features. Nonobstructing right upper pole intrarenal calculus. 3. Mild free fluid in the pelvis is presumed secondary to the colonic findings. 4. Very small hiatal hernia. Subsequently an upper endoscopy and colonoscopy was arranged. This was done on 04/[address] Fields. Colonoscopy was negative however upper endoscopy revealed: Poorly differentiated carcinoma, in the stomach. Possibility of metastatic lobular carcinoma of the breast was raised. Her breast exam was normal however, she tells me she has not had a mammogram in about 20 years. As per NCCN guidelines workup for gastric carcinoma that is recommended includes: 1. PET scan. 2. Endoscopic ultrasound to determine if disease is early versus locally advanced stage. She was sent over to the [facility] to have a mammogram: No mammographic evidence of malignancy. I checked baseline labs, including the tumor markers: CEA 5.1, Ca 27.29 103. l proceeded with a PET scan for staging. This revealed: No foci of abnormal FDG activity are visualized. There are no abnormalities visualized suspicious for metastatic or other malignant lesions. l requested endoscopic ultrasound for exact pathological staging. This was scheduled at [facility], by Dr. Blanco. The area of abnormality was very subtle. He took several biopsies. Unfortunately they came back positive. She has seen Dr. Rajan, to consider surgery by minimally invasive method. It was decided to proceed with FLOT chemotherapy in the neoadjuvant setting. She was started on it a few months ago. She has tolerated it reasonably well. She had a CT scan of the chest abdomen pelvis on 10/19 which revealed: remarkable CT chest with no pulmonary nodule or mass. Right central venous port tip is in the distal SVC. Moderate sized hiatal hernia. There is a large stool in the colon suggestive of severe constipation. No abnormal sized abdominal lymph nodes seen. Distended urinary bladder. She underwent endoscopic ultrasound since imaging was not very helpful. This was done on November [address] Blanco. There were no lesions seen. The random biopsies of the stomach lining were negative. She then underwent surgery on 12/[address] Rajan. She had total gastrectomy lymphadenectomy and omentectomy, Melyssa-en-Y rec onstruction with end-to-side esophagojejunostomy(retro colic.) Pathology revealed: Adeno carcinoma, residual, diffuse type, poorly differentiated, with metastases to regional lymph nodes and omentum. Tumor site: Residual tumor most prominent along the greater curvature. Tumor size: A distinct tumor mass is not identified grossly. 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 Histologic type: Diffuse type(signet ring carcinoma.) Histologic grade: G3, poorly differentiated. Tumor extension: Tumor invades mucosa, submucosa, muscularis propria and subserosal connective tissue, extending to the peritoneal surface.(pT4a.) Margins: Final anastomotic do not appear negative for carcinoma. Residual carcinoma is identified in en face sections of the proximal margin.(discohesive tumor cells in the submucosa.) Treatment effect: Evident tumor regression but with extensive residual carcinoma, (partial response, score 2-3. LV I: Identified. Additional findings: Extensive tumor infiltrates omental adipose tissue and is present on the peritoneal surface,(pM1). Regional lymph nodes: Number examined: 5. Number positive: 2. Ancillary studies: HER2 fish testing is negative. Pathologic stage: Following preop neoadjuvant therapy. Primary tumor:ypN1. Metastatic disease:ypM1. She is currently recuperating from the surgery. Trying to gradually advance her diet. CEA level: 4.40. PLAN: I discussed further treatment options with her. One is to proceed with palliative chemotherapy, in the second-line setting, as delineated in the [place] trial. According to NCCN guidelines preferred regimen include: Paclitaxel 80 mg, on days 1, 8 and 15 + Ramucirumab 8 mg/kg< week 1 and 15 Q 28 days. Will see if I can substitute Abraxane for the paclitaxel. The other is combined modality therapy, with radiation along with oral Xeloda. I discussed with Dr. Tatum further. Her feeling was that PRODUCT SAFETY MANAGER would be rather toxic and not well tolerated. Her concern is if she would have significant toxicity and not be able to finish a course of PRODUCT SAFETY MANAGER, she will be unable to receive chemotherapy afterwards. I discussed this with the patient. I would like to proceed with systemic chemotherapy. However she would like to wait a while longer, to try to recuperate. In the meantime she will continue to focus on nutrition and gaining her strength back. She will return in a couple of weeks for a follow-up visit. Thank you, CC: Dr. Clark. Dr. Fields. Dr. De Leon. Dr. Rajan - Time Spent With Patient Time Spent with Patient (in minutes): 30
[2021-02-01 11:22] VITALS: BP 136/63; PULSE 76; RESP 14; TEMP 36.4; O2SAT 99; BMI 21.1
[2021-02-01 11:48] LABS: MANUAL DIFF FLAG NO
[2021-02-01 12:00] LABS: Basophils Percent Auto 0.3 % (0-2); Eosinophils Absolute Auto 0.1 X10*3/uL (0.0-0.4); Eosinophils Percent Auto 4.2 % (0-4); Hematocrit 32.7 % (37-47); Hemoglobin 10.3 g/dl (12.0-16.0); Imm Gran Abs Auto 0.01 X10*3/uL (0.00-0.03); Imm Gran Pct Auto 0.3 % (0.0-0.4); Lymphocytes Absolute Auto 1.1 X10*3/uL (1.2-4.9); Lymphocytes Percent Auto 38.9 % (20-40); Mean Corpuscular HGB Conc 31.5 g/dl (31.0-35.0); Mean Corpuscular Hemoglobin 28.4 pg (27.0-33.0); Mean Corpuscular Volume 90.1 fL (80-98); Mean Platelet Volume 9.3 fL (9.4-12.3); Monocytes Absolute Auto 0.3 X10*3/uL (0.1-1.2); Monocytes Percent Auto 8.7 % (2-11); Neutrophils Absolute Auto 1.4 X10*3/uL (2.0-8.3); Neutrophils Percent Auto 47.6 % (45-73); Platelet Count 185 X10*3/uL (160-400); Red Blood Count 3.63 X10*6/uL (4.20-5.50); Red Cell Distribution Width 14.1 % (11.0-16.0); White Blood Count 2.9 X10*3/uL (4.8-10.8)
[2021-02-01 12:23] LABS: Alanine Aminotransferase 17 U/L (0-31); Alkaline Phosphatase 111 U/L (39-117); Anion Gap 12 (12-20); Aspartate Amino Transferase 31 U/L (5-31); Bilirubin Total 0.4 mg/dL (0.0-1.0); Blood Urea Nitrogen 8 mg/dL (9-16); Calcium 9.4 mg/dL (8.4-10.2); Carbon Dioxide 28 mmol/L (22-29); Chloride 102 mmol/L (96-108); Creatinine Clr Calc Pharmacy 76.8; Estimated Glomerular Filt Rate > 60; Glucose Random 115 mg/dL (60-115); Potassium 4.4 mmol/L (3.3-5.1); Sodium 138 mmol/L (135-145); Total Protein 6.4 g/dL (6.5-8.0)
--- NOTE | 2021-02-09 10:04 | MHC.HEMONC ---
Pt record faxed to [facility] at Dr Cisneros's request. I called to alert them that we are requesting pt Consultation.
--- NOTE | 2021-02-23 11:34 | MHC.HEMONC ---
pt called to report [facility] referral does not take her insurance at this time. pt is waiting for her medicare card to come in and she will call us back and retry to go to [facility]
--- NOTE | 2021-03-22 15:40 | P.PNHO_ITS ---
Medical Summary - Medical Summary Date of Service: 03/22/21 Chief complaint: Follow-up for: Gastric carcinoma. Medical Summary: DIAGNOSIS: GASTRIC CARCINOMA. CURRENT THERAPY: 1. FLOT CHEMOTHERAPY, CYCLE 4, day 15. 2. She then underwent surgery on 12/[address] Rajan. 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 Tumor site: Residual tumor most prominent along the greater curvature. Tumor size: A distinct tumor mass is not identified grossly. 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 Histologic type: Diffuse type(signet ring carcinoma.) Histologic grade: G3, poorly differentiated. Tumor extension: Tumor invades mucosa, submucosa, muscularis propria and subserosal connective tissue, extending to the peritoneal surface.(pT4a.) Margins: Final anastomotic do not appear negative for carcinoma. Residual carcinoma is identified in en face sections of the proximal margin.(discohesive tumor cells in the submucosa.) Treatment effect: Evident tumor regression but with extensive residual c arcinoma, (partial response, score 2-3. LV I: Identified. Additional findings: Extensive tumor infiltrates omental adipose tissue and is present on the peritoneal surface,(pM1). Regional lymph nodes: Number examined: 5. Number positive: 2. Ancillary studies: HER2 fish testing is negative. Pathologic stage: Following preop neoadjuvant therapy. Primary tumor:ypN1. Metastatic disease:ypM1. Interval History Interval history: Sheryl Espinoza is a pleasant 65 year old lady here for a follow-up visit. She tells me she gets intermittent stabbing pain in the left upper quadrant area. Sometimes he finds it hard to eat. Sometimes she feels like she is choking. Once she throws up she feels better. She has oxycodone however she tries to take it sparingly. Takes it once at night. That is only way she can sleep 4-5 hours. Tylenol is not that effective. She has gained a couple of lb. She is trying to optimize her diet. Since her stomach is not there she has to eat soft small meals frequently. She has noticed that if she drinks water 1st and then tries to eat it goes better. She has gained weight. She gets intermittent diarrhea. Denies gross blood in the stools. She takes Imodium as needed. Denies any chest pain or trouble with breathing. She had dyspepsia but omeprazole has been helping. She is in good spirits. Rest of the review of systems is unremarkable. She does try to work out for 20 minutes every day. Recent history: She had surgery done. She initially had an endoscopic ultrasound by Dr. Blanco, in November. There were no lesions seen. The random biopsies of the stomach lining were negative. She then underwent surgery on 12/[address] Rajan. 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 Tumor site: Residual tumor most prominent along the greater curvature. Tumor size: A distinct tumor mass is not identified grossly. 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 Histologic type: Diffuse type(signet ring carcinoma.) Histologic grade: G3, poorly differentiated. Tumor extension: Tumor invades mucosa, submucosa, muscularis propria and haddad bserosal connective tissue, extending to the peritoneal surface.(pT4a.) Margins: Final anastomotic do not appear negative for carcinoma. Residual carcinoma is identified in en face sections of the proximal margin.(discohesive tumor cells in the submucosa.) Treatment effect: Evident tumor regression but with extensive residual carcinoma, (partial response, score 2-3. LV I: Identified. Additional findings: Extensive tumor infiltrates omental adipose tissue and is present on the peritoneal surface,(pM1). Regional lymph nodes: Number examined: 5. Number positive: 2. Ancillary studies: HER2 fish testing is negative. Pathologic stage: Following preop neoadjuvant therapy. Primary tumor:ypN1. Metastatic disease:ypM1. Previous history: She was admitted to the hospital back towards the end of February,, with symptoms of acute diverticulitis and UTI. She had presented with 3 days history of left flank pain and dysuria. Abdominal pain was accompanied by decreased appetite nausea and 1 episode of vomiting on 10/23. CT scan of the abdomen revealed: 1.Short segment mural thickening and pericolonic infiltrative changes in the proximal descending colon most consistent with acute diverticulitis or short segment colitis. 2. Mild left pelvo- caliectasis, without obstructing abnormality could be secondary to left ureteropelvic junction stenosis. Left renal cyst demonstrated benign features. Nonobstructing right upper pole intrarenal calculus. 3. mild free fluid in the pelvis is presumed secondary to colonic findings. 4. Very small hiatus hernia. Patient was started on IV antibiotics and admitted. In addition she was noted to have a urinary tract infection. Blood cultures showed Gram-negative rods, likely bacteremia from the UTI. She did note improvement from abdominal pain from 10/10 to 4/10 the following day. She also complained of heartburn and odynophagia of for a few days. She was seen by GI. Recommendation was to continue IV antibiotics until abdominal pain improves. Start oral omeprazole for heartburn and odynophagia. To be scheduled for an upper endoscopy and colonoscopy, in 5-6 weeks time, after resolution of the diverticulitis. This was done on 04/24. Pathology revealed: Stomach body biopsy: Poorly differentiated carcinoma. Morphology and immunophenotype are not 100% specific but raise the possibility of metastatic lobular carcinoma of the breast. Other primary sources include gastric and other upper GI locations. ROS: She denies easy fatigability. Her appetite is good. She has lost some weight. One hundred fifty down to 135 lb. Denies headache no dizziness. No chest pain or trouble breathing. No cough nor shortness of breath no chest pain. She had some dyspepsia type symptoms when she was in house. The omeprazole has taken care of these. Occasional cramping prior to bowel movement. Denies diarrhea. Denies gross b lood in the stools. She never had a previous colonoscopy. She had recent UTI symptoms. These have resolved. She has arthritis involving her knees. Denies any focal weakness. No depression/anxiety. Family history: Dad had pancreatic cancer at the age of 67. Mom had non-Hodgkin's lymphoma. 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 She has 3 children. She smoked as a teenager. She rarely drinks. Review of Systems - Constitutional Reports system reviewed and no additional complaints, except as documented, Reports fatigue, Reports malaise, Reports weakness, Reports weight gain, Denies fever(s) - Eyes Reports system reviewed and no additional complaints, except as documented - ENT Reports system reviewed and no additional complaints, except as documented - Cardiovascular Reports system reviewed and no additional complaints, except as documented - Respiratory Reports no additional respiratory complaints - Gastrointestinal Reports system reviewed and no additional complaints, except as documented, Reports abdominal pain, Reports bloating, Reports diarrhea, Reports nausea - Genitourinary Reports no additional female genitourinary complaints - Musculoskeletal Reports system reviewed and no additional complaints, except as documented - Integumentary/Breasts Skin/Breast: Reports no additional skin complaints - Neurologic Reports system reviewed and no additional complaints, except as documented, Reports hearing normal - Psychiatric Reports system reviewed and no additional complaints, except as documented - Endocrine Reports no additional endocrine complaints - Hematologic/Lymphatic Reports system reviewed and no additional complaints, except as documented - Allergic/Immunologic Reports system reviewed and no additional complaints, except as documented PMFSH Medical History: Medical History (Last Reviewed 03/22/21 @ 16:05 by Los Martínez RN) History of cellulitis Hx of diverticulitis of colon Hypercholesterolemia Lab test negative for COVID-19 virus Type 2 diabetes mellitus with hyperglycemia Functional capacity: independent ambulation Patient : No Family History: Family History (Last Reviewed 03/22/21 @ 16:08 by Los Martínez RN) Father Pancreatic cancer Mother NHL (non-Hodgkin's lymphoma) Maternal Grandfather Prostate cancer Maternal Grandmother Diabetes Heart disease Paternal Grandfather Diabetes Son Asthma Surgical History: Surgical History (Last Reviewed 03/22/21 @ 16:06 by Los Martínez RN) H/O tubal ligation History of esophagogastroduodenoscopy (EGD) History of gastrectomy Hx of appendectomy Hx of colonoscopy Hx of tonsillectomy S/P cholecystectomy Onset Date: ~1988 S/P right knee arthroscopy Onset Date: ~2002 Social History: Social History (Last Reviewed 03/22/21 @ 16:06 by Los Martínez RN) Living Situation History: Household Members: Spouse Household Members: Children Housing: House Are you a primary care center manager to a significant other at home: No Do you presently have visiting nurse or other home services: No Alcohol History: Alcohol intake: current Alcohol History Details: Alcohol intake frequency: holiday/special occasion Tobacco History: Second Hand Smoke Exposure: No Substance Use History: Use of substances other than those prescribed or required for medical reasons : No Domestic Abuse History: Have you been hit, kicked, punched, or otherwise hurt by someone within the past year? 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 Performance Status ECOG Performance Status: 0 Home Medications and Allergies Home Medications Medication Instructions Recorded Confirmed Type multivitamin 1 tab PO DAILY 05/11/20 03/22/21 History oxycodone 5 mg tablet 5 mg PO Q8H PRN 03/22/21 03/22/21 History Allergies Allergy/AdvReac Type Severity Reaction Status Date / Time meperidine [From Demerol] Allergy Severe Swelling Verified 11/20/20 07:04 Exam Vital signs: Vital Signs Temp 97.5 F 02/01/21 11:22 Pulse 76 02/01/21 11:22 Resp 14 02/01/21 11:22 BP 136/63 02/01/21 11:22 Pulse Ox 99 02/01/21 11:22 Weight 55.8 kg Body Mass Index 21.1 - Constitutional Present: no acute distress - Routine HEENT Exam Head: Present: normal inspection Eye: Present: normal appearance ENT: Present: mucous membranes moist - Routine Neck Exam Present: full ROM - Routine Respiratory Exam Present: CTAB - Routine Cardiovascular Exam Cardiovascular: Present: RRR, S1, S2 - Routine Abdominal Exam Present: soft, nontender - Routine Rectal Exam Patient deferred: digital exam - Routine Extremities Exam Present: nontender - Routine Back/Spine/Pelvis Exam Back/Spine: Present: full ROM - Routine Skin Exam Present: intact - Routine Neurological Exam Present: alert, oriented X3, vision grossly intact - Detailed Neurological Exam: Coma Scale Eye Opening: Spontaneous (4) - Routine Psychiatric Exam Present: normal affect Data - Labs CBC & Chem 7: 03/22/21 15:44 03/22/21 15:44 Assessment and Plan Patient Active problem list reviewed?: Yes (1) Gastric cancer Status: Inactive (2) Gastric cancer Problem details: Gastrectomy, omentectomy, esophagojejunostomy, Melsysa-en-Y for gastric cancer Status: Acute Assessment and plan: This is a pleasant 64-year-old lady with a history of diabetes and divertic ulosis. She had epigastric pain, off and on for a few months. She tells me she had GERD symptoms however she stopped eating sweets and those resolved. This was about 13 years ago. She was started on omeprazole recently which has been helping. Back in February she was admitted with a bout of diverticulitis. CT scan of the abdomen revealed: 1. Short segment mural thickening and pericolonic infiltrative changes in the proximal descending colon most consistent with acute diverticulitis or short segment colitis as a definitive diverticulum is not seen. 2. Mild left pelvocaliectasis without obstructing abnormality could be secondary to left ureteropelvic junction stenosis. Left renal cysts demonstrate benign features. Nonobstructing right upper pole intrarenal calculus. 3. Mild free fluid in the pelvis is presumed secondary to the colonic findings. 4. Very small hiatal hernia. Subsequently an upper endoscopy and colonoscopy was arranged. This was done on 04/[address] Fields. Colonoscopy was negative however upper endoscopy revealed: Poorly differentiated carcinoma, in the stomach. Possibility of metastatic lobular carcinoma of the breast was raised. Her breast exam was normal however, she tells me she has not had a mammogram in about 20 years. As per NCCN guidelines workup for gastric carcinoma that is recommended includes: 1. PET scan. 2. Endoscopic ultrasound to determine if disease is early versus locally advanced stage. She was sent over to the [facility] to have a mammogram: No mammographic evidence of malignancy. I checked baseline labs, including the tumor markers: CEA 5.1, Ca 27.29 103. l proceeded with a PET scan for staging. This revealed: No foci of abnormal FDG activity are visualized. There are no abnormalities visualized suspicious for metastatic or other malignant lesions. l requested endoscopic ultrasound for exact pathological staging. This was scheduled at [facility], by Dr. Blanco. The area of abnormality was very subtle. He took several biopsies. Unfortunately they came back positive. She has seen Dr. Rajan, to consider surgery by minimally invasive method. It was decided to proceed with FLOT chemotherapy in the neoadjuvant setting. She was started on it a few months ago. She has tolerated it reasonably well. She had a CT scan of the chest abdomen pelvis on 10/19 which revealed: remarkable CT chest with no pulmonary nodule or mass. Right central venous port tip is in the distal SVC. Moderate sized hiatal hernia. There is a large stool in the colon suggestive of severe constipation. No abnormal sized abdominal lymph nodes seen. Distended urinary bladder. She underwent endoscopic ultrasound since imaging was not very helpful. This was done on November [address] Blanco. There were no lesions seen. The random biopsies of the stomach lining were negative. She then underwent surgery on 12/[address] Rajan. 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 Tumor site: Residual tumor most prominent along the greater curvature. Tumor size: A distinct tumor mass is not identified grossly. 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 Histologic type: Diffuse type(signet ring carcinoma.) Histologic grade: G3, poorly differentiated. Tumor extension: Tumor invades mucosa, submucosa, muscularis propria and subserosal connective tissue, extending to the peritoneal surface.(pT4a.) Margins: Final anastomotic do not appear negative for carcinoma. Residual carcinoma is identified in en face sections of the proximal margin.(discohesive tumor cells in the submucosa.) Treatment effect: Evident tumor regression but with extensive residual carcinoma, (partial response, score 2-3. LV I: Identified. Additional findings: Extensive tumor infiltrates omental adipose tissue and is present on the peritoneal surface,(pM1). Regional lymph nodes: Number examined: 5. Number positive: 2. Ancillary studies: HER2 fish testing is negative. Pathologic stage: Following preop neoadjuvant therapy. Primary tumor:ypN1. Metastatic disease:ypM1. She is currently recuperating from the surgery. Trying to gradually advance her diet. CEA level: 5.8, previously 4.40. PLAN: I discussed further treatment options with her. To proceed with palliative chemotherapy, in the second-line setting, as d elineated in the Calypso trial. According to NCCN guidelines preferred regimen include: Paclitaxel 80 mg, on days 1, 8 and 15 + Ramucirumab 8 mg/kg< week 1 and 15 Q 28 days. l tried to see if I can substitute Abraxane for the paclitaxel. However unfortunately Abraxane is not available at this point from the conference concierge. She would like to wait a while longer, to try to recuperate. However, I would like to proceed with systemic chemotherapy, lest the tumor regrows. In the meantime she will continue to focus on nutrition and gaining her strength back. Will flush her Port-A-Cath today. She will return later in the week for chemotherapy teaching and the following week to start treatment. I will send prescriptions for oxycodone and Zofran to her pharmacy. Thank you, CC: Dr. Clark. Dr. Fields. Dr. De Leon. Dr. Rajan - Time Spent With Patient Time Spent with Patient (in minutes): 30
[2021-03-22 15:48] LABS: MANUAL DIFF FLAG NO
[2021-03-22 15:51] LABS: Eosinophils Percent Auto 0.6 % (0-4); Hematocrit 35.4 % (37.0-47.0); Hemoglobin 11.3 g/dl (12.0-16.0); Lymphocytes Absolute Auto 1.4 X10*3/uL (1.2-4.9); Lymphocytes Percent Auto 40.1 % (20-40); Mean Corpuscular HGB Conc 31.9 g/dl (31.0-35.0); Mean Platelet Volume 9.6 fL (9.4-12.3); Monocytes Absolute Auto 0.2 X10*3/uL (0.1-1.2); Monocytes Percent Auto 6.1 % (2-11); Neutrophils Absolute Auto 1.9 x10*3/uL (2.0-8.3); Neutrophils Percent Auto 53.2 % (45-73); Platelet Count 173 X10*3/uL (160-400); Red Blood Count 3.89 X10*6/uL (4.20-5.50); Red Cell Distribution Width 15.1 % (11.0-16.0); White Blood Count 3.6 X10*3/uL (4.8-10.8)
[2021-03-22 15:54] VITALS: BP 135/65; PULSE 82; RESP 18; TEMP 36.1; O2SAT 100; BMI 20.2
[2021-03-22 16:12] LABS: Alanine Aminotransferase 20 U/L (0-31); Albumin Level 4.2 g/dL (3.5-5.0); Alkaline Phosphatase 107 U/L (39-117); Anion Gap 11 (12-20); Aspartate Amino Transferase 29 U/L (5-31); Bilirubin Total 0.3 mg/dL (0.0-1.0); Blood Urea Nitrogen 12 mg/dL (9-16); Calcium 9.6 mg/dL (8.4-10.2); Carbon Dioxide 32 mmol/L (22-29); Chloride 101 mmol/L (96-108); Creatinine Clr Calc Pharmacy 69.8; Estimated Glomerular Filt Rate > 60; Glucose Random 133 mg/dL (60-115); Potassium 4.6 mmol/L (3.3-5.1); Sodium 139 mmol/L (135-145); Total Protein 6.7 g/dL (6.5-8.0)
--- NOTE | 2021-03-22 16:43 | MHC.HEMONC ---
Port flush done, good blood return noted.
--- NOTE | 2021-03-22 17:14 | MHC.HEMONC ---
Pt arrived for sched Onc f/u appt, affect was mildly withdrawn, VSS, labs drawn and reviewed. Nurse reviewed PMH and updated med list. Pt reported she was experiencing intermittent stabbing pain to LUQ, up to 10/10 at times, lasting a few minutes at a time. Pt is taking PRN oxycodone 5 mg PO QHS w/ mod effect, which does allow to sleep for 4-5 hrs. Pt otherwise uses liquid tylenol in the daytime w/ only minimal effect, states she does not want to use PRN oxycodone more than once a day to help w/ sleep. Nurse inquired about pt's L chest port, and pt replied it had not been flushed for many months, since last chemo. Pt stated she was currently postponing chemo tx as she was still recovering from surgery in December. Nurse updated Dr. Cisneros, who was in to meet w/ pt, ordered port flushed w/ Heparin. Pt received discharge packet, confirmed next visit for chemo teaching on 03/26/21.
--- NOTE | 2021-03-24 16:46 | HO.HEMONCPA ---
NO PA REQUIRED FOR RAMUCIRUMAB, & TAXOL. DRUGS ON FORMULARY - COVERED UNDER BUY & BILL PER [facility] ([facility])
--- NOTE | 2021-03-26 14:35 | MHC.HEMONC ---
Pt here for ramacirumab and taxol teach. Accompanied by male family member. Treatment plan, schedule and chemo info sheets reviewed and given. All questions answered. Pt verbalized understanding and is aware of next appt.
[2021-04-08 09:50] VITALS: BP 156/70; PULSE 77; RESP 20; TEMP 36.6; O2SAT 100
[2021-04-08 10:45] LABS: Eosinophils Percent Auto 1.2 % (0-4); Hematocrit 30.3 % (37.0-47.0); Hemoglobin 9.9 g/dl (12.0-16.0); Lymphocytes Absolute Auto 0.9 X10*3/uL (1.2-4.9); Lymphocytes Percent Auto 34.8 % (20-40); Mean Corpuscular HGB Conc 32.7 g/dl (31.0-35.0); Mean Corpuscular Hemoglobin 29.8 pg (27.0-33.0); Mean Corpuscular Volume 91.3 fL (80.0-98.0); Mean Platelet Volume 9.6 fL (9.4-12.3); Monocytes Absolute Auto 0.2 X10*3/uL (0.1-1.2); Neutrophils Absolute Auto 1.3 x10*3/uL (2.0-8.3); Platelet Count 153 X10*3/uL (160-400); Red Blood Count 3.32 X10*6/uL (4.20-5.50); Red Cell Distribution Width 14.9 % (11.0-16.0); White Blood Count 2.4 X10*3/uL (4.8-10.8)
[2021-04-08 10:55] LABS: Appearance Urine HAZY; Color Urine YELLOW; Glucose Urine UA NEG (NEG); Leukocyte Esterase Urine 2+ (NEG); Nitrite Urine NEG (NEG); PH 5.5 (5.0-8.0); Specific Gravity - Urine 1.025 (1.005-1.025); Urine Blood NEG (NEG); Urine Ketones NEG (NEG); Urine Protein NEG (NEG-TRACE)
[2021-04-08 10:58] LABS: Alanine Aminotransferase 15 U/L (0-31); Albumin Level 3.8 g/dL (3.5-5.0); Alkaline Phosphatase 87 U/L (39-117); Anion Gap 11 (12-20); Aspartate Amino Transferase 23 U/L (5-31); Bilirubin Direct 0.2 mg/dL (0.0-0.5); Bilirubin Total 0.5 mg/dL (0.0-1.0); Blood Urea Nitrogen 10 mg/dL (9-16); Calcium 9.2 mg/dL (8.4-10.2); Carbon Dioxide 28 mmol/L (22-29); Chloride 105 mmol/L (96-108); Creatinine Clr Calc Pharmacy 81.8; Estimated Glomerular Filt Rate > 60; Glucose Random 68 mg/dL (60-115); Potassium 3.8 mmol/L (3.3-5.1); Sodium 140 mmol/L (135-145); Total Protein 5.9 g/dL (6.5-8.0)
[2021-04-08 11:37] LABS: RBC Urine 0 /HPF (0)
[2021-04-08 11:38] LABS: Bacteria Urine 1+ /LPF; Calcium Oxalate Crystals Urine 1+ /LPF; Mucus Urine 1+ /LPF; Squamous Epithelial Cell Urine 2+ /LPF; Uric Acid Crystals Urine 2+ /LPF
[2021-04-08] MEDS: Ondansetron ODT 8 MG TAB.RAPDIS TRANSLINGU (11:42)
[2021-04-08] MEDS: Acetaminophen 325 MG TABLET 650 MG PO (11:42)
[2021-04-08] MEDS: dexAMETHasone sod phosphate/NS 12 MG/50 ML PIGGYBACK 200 MG IV (11:43)
[2021-04-08] MEDS: Heparin Sodium,Porcine Flush 500 UNIT/5 ML SYRINGE IVFLUSH (11:45)
[2021-04-08] MEDS: Famotidine/PF 20 MG/2 ML VIAL IVPUSH (11:46)
[2021-04-08] MEDS: diphenhydrAMINE HCL 50 MG/ML VIAL 25 MG IVPUSH (11:46)
--- NOTE | 2021-04-08 15:24 | MHC.HEMONC ---
Here for C1D1 Ramucirumab/Paclitaxel. Port accessed with good blood return noted. Labs drawn and reviewed. Urine also obtained. Pt states has been feeling well. Pre-meds given as ordered. Treatment done and tolerated well. Scheduled to return for next treatment in 1 week.
[2021-04-15 10:20] VITALS: BP 123/69; PULSE 75; RESP 18; TEMP 36; O2SAT 100; BMI 20.2
[2021-04-15 10:25] LABS: Basophils Percent Auto 0.6 % (0-2); Eosinophils Percent Auto 2.5 % (0-4); Hematocrit 29.3 % (37.0-47.0); Hemoglobin 9.5 g/dl (12.0-16.0); Imm Gran Abs Auto 0.01 X10*3/uL (0.00-0.03); Imm Gran Pct Auto 0.6 % (0.0-0.4); Lymphocytes Absolute Auto 0.7 X10*3/uL (1.2-4.9); Lymphocytes Percent Auto 43.7 % (20-40); Mean Corpuscular HGB Conc 32.4 g/dl (31.0-35.0); Mean Corpuscular Hemoglobin 29.8 pg (27.0-33.0); Mean Corpuscular Volume 91.8 fL (80.0-98.0); Mean Platelet Volume 9.9 fL (9.4-12.3); Monocytes Absolute Auto 0.1 X10*3/uL (0.1-1.2); Monocytes Percent Auto 5.7 % (2-11); Neutrophils Absolute Auto 0.7 x10*3/uL (2.0-8.3); Neutrophils Percent Auto 46.9 % (45-73); Platelet Count 124 X10*3/uL (160-400); Red Blood Count 3.19 X10*6/uL (4.20-5.50); Red Cell Distribution Width 14.5 % (11.0-16.0); SCAN SMEAR FLAG 1
[2021-04-15 10:41] LABS: MANUAL DIFF FLAG NO; White Blood Count 1.6 X10*3/uL (4.8-10.8)
[2021-04-15 10:58] LABS: Alanine Aminotransferase 15 U/L (0-31); Albumin Level 3.4 g/dL (3.5-5.0); Alkaline Phosphatase 79 U/L (39-117); Anion Gap 12 (12-20); Aspartate Amino Transferase 22 U/L (5-31); Bilirubin Direct 0.2 mg/dL (0.0-0.5); Bilirubin Total 0.2 mg/dL (0.0-1.0); Blood Urea Nitrogen 10 mg/dL (9-16); Calcium 8.7 mg/dL (8.4-10.2); Carbon Dioxide 24 mmol/L (22-29); Chloride 108 mmol/L (96-108); Creatinine Clr Calc Pharmacy 72.8; Estimated Glomerular Filt Rate > 60; Glucose Random 225 mg/dL (60-115); Potassium 4.1 mmol/L (3.3-5.1); Sodium 140 mmol/L (135-145); Total Protein 5.4 g/dL (6.5-8.0)
[2021-04-15] MEDS: Famotidine/PF 20 MG/2 ML VIAL IVPUSH (11:17)
[2021-04-15] MEDS: dexAMETHasone sod phosphate/NS 12 MG/50 ML PIGGYBACK 200 MG IV (11:20)
[2021-04-15] MEDS: Acetaminophen 325 MG TABLET 650 MG PO (11:21)
[2021-04-15] MEDS: Ondansetron ODT 8 MG TAB.RAPDIS TRANSLINGU (11:21)
[2021-04-15] MEDS: diphenhydrAMINE HCL 50 MG/ML VIAL 25 MG IVPUSH (11:22)
--- NOTE | 2021-04-15 11:44 | HO.HEMONCPA ---
PER [facility]), NO PA REQUIRED FOR NEUEN ([id number]). DRUG UNDER BUY & BILL
--- NOTE | 2021-04-15 14:42 | MHC.HEMONC ---
Here for C1D8 Paclitaxel. States feels well after last treatment. Port accessed with good blood return noted. Lab draw done and results reviewed. WBC 1.6, ANC 0.7. Both reported to Dr Cisneros. Dr Cisneros spoke with Austin Carr, pharmacist. OK for treatment today. Will get PA for Neupagen and start with next treatment. Premeds given as ordered. Treatment done and tolerated well. Port de-accessed. Pt scheduled for next treatment in 1 week.
[2021-04-22 10:08] VITALS: BP 145/62; PULSE 74; RESP 18; TEMP 36.4; O2SAT 100; BMI 20.5
[2021-04-22 10:41] LABS: Basophils Percent Auto 0.5 % (0-2); Eosinophils Percent Auto 1.6 % (0-4); Hematocrit 29.5 % (37.0-47.0); Hemoglobin 9.6 g/dl (12.0-16.0); Imm Gran Abs Auto 0.01 X10*3/uL (0.00-0.03); Imm Gran Pct Auto 0.5 % (0.0-0.4); MANUAL DIFF FLAG SCAN; Mean Corpuscular HGB Conc 32.5 g/dl (31.0-35.0); Mean Corpuscular Hemoglobin 30.2 pg (27.0-33.0); Mean Corpuscular Volume 92.8 fL (80.0-98.0); Mean Platelet Volume 10.1 fL (9.4-12.3); Monocytes Absolute Auto 0.1 X10*3/uL (0.1-1.2); Monocytes Percent Auto 5.5 % (2-11); Neutrophils Absolute Auto 0.7 x10*3/uL (2.0-8.3); Neutrophils Percent Auto 38.9 % (45-73); Platelet Count 153 X10*3/uL (160-400); Red Blood Count 3.18 X10*6/uL (4.20-5.50); Red Cell Distribution Width 14.5 % (11.0-16.0); SCAN SMEAR FLAG 1
[2021-04-22 10:47] LABS: White Blood Count 1.8 X10*3/uL (4.8-10.8)
[2021-04-22 11:07] LABS: Alanine Aminotransferase 16 U/L (0-31); Albumin Level 3.6 g/dL (3.5-5.0); Alkaline Phosphatase 86 U/L (39-117); Anion Gap 15 (12-20); Aspartate Amino Transferase 23 U/L (5-31); Bilirubin Direct 0.2 mg/dL (0.0-0.5); Bilirubin Total 0.3 mg/dL (0.0-1.0); Blood Urea Nitrogen 10 mg/dL (9-16); Calcium 8.9 mg/dL (8.4-10.2); Carbon Dioxide 25 mmol/L (22-29); Chloride 113 mmol/L (96-108); Creatinine Clr Calc Pharmacy 73.6; Estimated Glomerular Filt Rate > 60; Glucose Random 176 mg/dL (60-115); Potassium 4.1 mmol/L (3.3-5.1); Sodium 149 mmol/L (135-145); Total Protein 5.6 g/dL (6.5-8.0)
[2021-04-22 11:08] LABS: SLIDE REVIEW VERIFIED
[2021-04-22] MEDS: Famotidine/PF 20 MG/2 ML VIAL IVPUSH (12:10)
[2021-04-22] MEDS: dexAMETHasone sod phosphate/NS 12 MG/50 ML PIGGYBACK 200 MG IV (12:15)
[2021-04-22] MEDS: Acetaminophen 325 MG TABLET 650 MG PO (12:17)
[2021-04-22] MEDS: diphenhydrAMINE HCL 50 MG/ML VIAL 25 MG IVPUSH (12:17)
[2021-04-22] MEDS: Ondansetron ODT 8 MG TAB.RAPDIS TRANSLINGU (12:18)
[2021-04-22 12:51] LABS: Appearance Urine CLEAR; Color Urine YELLOW; Glucose Urine UA NEG (NEG); Leukocyte Esterase Urine NEG (NEG); Nitrite Urine POS (NEG); Urine Blood NEG (NEG); Urine Ketones NEG (NEG); Urine Protein NEG (NEG-TRACE)
[2021-04-22 13:33] LABS: RBC Urine 0-2 /HPF (0)
[2021-04-22 13:34] LABS: Bacteria Urine 2+ /LPF; Squamous Epithelial Cell Urine TRACE /LPF
[2021-04-22 13:35] LABS: Calcium Oxalate Crystals Urine 2+ /LPF
--- NOTE | 2021-04-22 16:38 | MHC.HEMONC ---
Patient here for Cycle 1 Day 15 Ramucirumab/Paclitaxel. Left chest port accessed with blood positive return noted. Labs drawn and reviewed - okay to receive treatment today. Patient pre-medicated with Zofran and Tylenol PO and Dexamethasone, Benadryl and Pepcid IV. Ramucirumab/Paclitaxel given as ordered and patient tolerated it well. Positive blood return in port both pre and post chemotherapy infusion. Port flushed and de-accessed. Neulasta injection scheduled for 04/23/21 if approved by insurance. Discharge packet given. Patient departed the unit with her .
--- NOTE | 2021-04-22 17:19 | PM.HEMONCPN ---
Medical Summary - Medical Summary Date of Service: 04/22/21 Chief complaint: Follow-up for: Recurrent gastric carcinoma. Medical Summary: DIAGNOSIS: GASTRIC CARCINOMA. CURRENT THERAPY: 1. FLOT CHEMOTHERAPY, CYCLE 4, day 15. 2. She then underwent surgery on 12/[address] Rajan. 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 Tumor site: Residual tumor most prominent along the greater curvature. Tumor size: A distinct tumor mass is not identified grossly. 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 Histologic type: Diffuse type(signet ring carcinoma.) Histologic grade: G3, poorly differentiated. Tumor extension: Tumor invades mucosa, submucosa, muscularis propria and subserosal connective tissue, extending to the peritoneal surface.(pT4a.) Margins: Final anastomotic do not appear negative for carcinoma. Residual carcinoma is identified in en face sections of the proximal margin.(discohesive tumor cells in the submucosa.) Treatment effect: Evident tumor regression but with extensive residual carcinoma, (partial response, score 2-3. LV I: Identified. Additional findings: Extensive tumor infiltrates omental adipose tissue and is present on the peritoneal surface,(pM1). Regional lymph nodes: Number examined: 5. Number positive: 2. Ancillary studies: HER2 fish testing is negative. Pathologic stage: Following preop neoadjuvant therapy. Primary tumor:ypN1. Metastatic disease:ypM1. 3. Started on Taxol and Ramucirumab, cycle 1 day 15 today. Interval History Interval history: Sheryl Espinoza is a pleasant 65 year old lady here for a follow-up visit. She is here for cycle 1 day 15 of her chemotherapy. She had noticed some pain in her right shoulder after the chemo. However today she felt the pain this morning. It is not related to movement. It is in the shoulder blade. She also complains of a sharp epigastric pain that is fleeting. She tells me she gets intermittent stabbing pain in the left upper quadrant area. Sometimes she finds it hard to eat. Sometimes she feels like she is choking. Once she throws up she feels better. She has oxycodone however she tries to take it sparingly. Takes it once at night. That is only way she can sleep 4-5 hours. Tylenol is not that effective. She has lost a couple of lb. She is trying to optimize her diet. Since her stomach is not there she has to eat soft small meals frequently. She gets intermittent diarrhea. He notices that her stool floaters. Denies gross blood in the stools. She takes Imodium as needed. Denies any chest pain or trouble with breathing. She is in good spirits. Rest of the review of systems is unremarkable. She does try to work out for 20 minutes every day. Recent history: She had surgery done. She initially had an endoscopic ultrasound by Dr. Blanco, in November. There were no lesions seen. The random biopsies of the stomach lining were negative. She then underwent surgery on 12/[address] Rajan. 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 Tumor site: Residual tumor most prominent along the greater curvature. Tumor size: A distinct tumor mass is not identified grossly. 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 Histologic type: Diffuse type(signet ring carcinoma.) Histologic grade: G3, poorly differentiated. Tumor extension: Tumor invades mucosa, submucosa, muscularis propria and subserosal connective tissue, extending to the peritoneal surface.(pT4a.) Margins: Final anastomotic do not appear negative for carcinoma. Residual carcinoma is identified in en face sections of the proximal margin.(discohesive tumor cells in the submucosa.) Treatment effect: Evident tumor regression but with extensive residual carcinoma, (partial response, score 2-3. LV I: Identified. Additional findings: Extensive tumor infiltrates omental adipose tissue and is present on the peritoneal surface,(pM1). Regional lymph nodes: Number examined: 5. Number positive: 2. Ancillary studies: HER2 fish testing is negative. Pathologic stage: Following preop neoadjuvant therapy. Primary tumor:ypN1. Metastatic disease:ypM1. Previous history: She was admitted to the hospital back towards the end of February,, with symptoms of acute diverticulitis and UTI. She had presented with 3 days history of left flank pain and dysuria. Abdominal pain was accompanied by decreased appetite nausea and 1 episode of vomiting on 02/27. CT scan of the abdomen revealed: 1.Short segment mural thickening and pericolonic infiltrative changes in the proximal descending colon most consistent with acute diverticulitis or short segment colitis. 2. Mild left pelvo- caliectasis, without obstructing abnormality could be secondary to left ureteropelvic junction stenosis. Left renal cyst demonstrated benign features. Nonobstructing right upper pole intrarenal calculus. 3. mild free fluid in the pelvis is presumed secondary to colonic findings. 4. Very small hiatus hernia. Patient was started on IV antibiotics and admitted. In addition she was noted to have a urinary tract infection. Blood cultures showed Gram-negative rods, likely bacteremia from the UTI. She did note improvement from abdominal pain from 02/14 to 4/10 the following day. She also complained of heartburn and odynophagia of for a few days. She was seen by GI. Recommendation was to continue IV antibiotics until abdominal pain improves. Start oral omeprazole for heartburn and odynophagia. To be scheduled for an upper endoscopy and colonoscopy, in 5-6 weeks time, after resolution of the diverticulitis. This was done on 04/24. Pathology revealed: Stomach body biopsy: Poorly differentiated carcinoma. Morphology and immunophenotype are not 100% specific but raise the possibility of metastatic lobular carcinoma of the breast. Other primary sources include gastric and other upper GI locations. ROS: She denies easy fatigability. Her appetite is good. She has lost some weight. One hundred fifty down to 135 lb. Denies headache no dizziness. No chest pain or trouble breathing. No cough nor shortness of breath no chest pain. She had some dyspepsia type symptoms when she was in house. The omeprazole has taken care of these. Occasional cramping prior to bowel movement. Denies diarrhea. Denies gross blood in the stools. She never had a previous colonoscopy. She had recent UTI symptoms. These have resolved. She has arthritis involving her knees. Denies any focal weakness. No depression/anxiety. Family history: Dad had pancreatic cancer at the age of 67. Mom had non-Hodgkin's lymphoma. 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 She has 3 children. She smoked as a teenager. She rarely drinks. Review of Systems - Constitutional Reports no additional constitutional complaints, Reports lack of energy, Reports malaise, Reports weakness, Reports weight loss - Eyes Reports no additional eye complaints - ENT Reports no additional ear, nose, mouth, and throat complaints - Cardiovascular Reports no additional cardiovascular complaints - Respiratory Reports no additional respiratory complaints - Gastrointestinal Reports no additional gastrointestinal complaints, Reports change in bowel habits, Reports dyspepsia, Reports diarrhea, Reports nausea - Genitourinary Reports no additional female genitourinary complaints - Musculoskeletal Reports no additional musculoskeletal complaints - Integumentary/Breasts Skin/Breast: Reports no additional skin complaints - Neurologic Reports no additional neurologic complaints, Reports hearing normal, Reports weakness - Psychiatric Reports no additional psychiatric complaints - Endocrine Reports no additional endocrine complaints - Hematologic/Lymphatic Reports no additional hematologic/lymphatic complaints - Allergic/Immunologic Reports no additional allergic/immunologic complaints PMF Medical History: Medical History (Last Reviewed 03/22/21 @ 16:05 by Los Martínez RN) History of cellulitis Hx of diverticulitis of colon Hypercholesterolemia Lab test negative for COVID-19 virus Type 2 diabetes mellitus with hyperglycemia Functional capacity: independent ambulation Patient : No Family History: Family History (Last Reviewed 03/22/21 @ 16:08 by Los Martínez RN) Father Pancreatic cancer Mother NHL (non-Hodgkin's lymphoma) Maternal Grandfather Prostate cancer Maternal Grandmother Diabetes Heart disease Paternal Grandfather Diabetes Son Asthma Surgical History: Surgical History (Last Reviewed 03/22/21 @ 16:06 by Los Martínez RN) H/O tubal ligation History of esophagogastroduodenoscopy (EGD) History of gastrectomy Hx of appendectomy Hx of colonoscopy Hx of tonsillectomy S/P cholecystectomy Onset Date: ~1988 S/P right knee arthroscopy Onset Date: ~2002 Social History: Social History (Last Reviewed 03/22/21 @ 16:06 by Los Martínez RN) Living Situation History: Household Members: Spouse Household Members: Children Housing: House Are you a primary family day care provider to a significant other at home: No Do you presently have visiting nurse or other home services: No Alcohol History: Alcohol intake: current Alcohol History Details: Alcohol intake frequency: holiday/special occasion Tobacco History: Second Hand Smoke Exposure: No Substance Use History: Use of substances other than those prescribed or required for medical reasons: No Domestic Abuse History: Have you been hit, kicked, punched, or otherwise hurt by someone within the past year? 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 Performance Status ECOG Performance Status: 0 Home Medications and Allergies Current Medications: Current Medications Acetaminophen (Acetaminophen 325 Mg Tablet) 650 mg PO ONCE KHRIS Stop: 04/22/21 23:59 Last Admin: 04/22/21 12:17 Dose: 650 mg Documented by: Diphenhydramine HCl (Diphenhydramine Hcl 50 Mg/Ml Vial) 25 mg IVPUSH ONCE KHRIS Stop: 04/22/21 23:59 Last Admin: 04/22/21 12:17 Dose: 25 mg Documented by: Famotidine (Famotidine/Pf 20 Mg/2 Ml Vial) 20 mg IVPUSH ONCE KHRIS Stop: 04/22/21 23:59 Last Admin: 04/22/21 12:10 Dose: 20 mg Documented by: Dexamethasone Sodium Phosphate (Decadron) 12 mg in 50 mls @ 200 mls/hr IV ONCE KHRIS Stop: 04/22/21 23:59 Last Infusion: 04/22/21 12:30 Dose: Infused Documented by: Paclitaxel 125 mg/ Sodium (Chloride) 270.8333 mls @ 270.833 mls/hr IV ONCE KHRIS Stop: 04/22/21 23:59 Last Infusion: 04/22/21 15:45 Dose: Infused Documented by: Ramucirumab 430 mg/ Sodium (Chloride) 250 mls @ 250 mls/hr IV ONCE KHRIS Stop: 04/22/21 23:59 Last Infusion: 04/22/21 14:35 Dose: Infused Documented by: Ondansetron HCl (Ondansetron Odt 8 Mg Tab.Rapdis) 8 mg TRANSLINGU ONCE KHIRS Stop: 04/22/21 23:59 Last Admin: 04/22/21 12:18 Dose: 8 mg Documented by: Home Medications Medication Instructions Recorded Confirmed Type multivitamin 1 tab PO DAILY 05/11/20 04/22/21 History Allergies Allergy/AdvReac Type Severity Reaction Status Date / Time meperidine [From Demerol] Allergy Severe Swelling Verified 11/20/20 07:04 Exam Vital signs: Vital Signs Temp 97.6 F 04/22/21 10:08 Pulse 74 04/22/21 10:08 Resp 18 04/22/21 10:08 BP 145/62 H 04/22/21 10:08 Pulse Ox 100 04/22/21 10:08 Intake & Output 04/21/21 04/22/21 04/22/21 18:59 06:59 18:59 Intake Total 570.8333 / 570.8333 Balance 570.8333 / 570.8333 Intake: Intake, IV Amount 570.8333 / 570.8333 PACLitaxeL 125 mg In 0.9 % 270.8333 / 270.8333 Sodium Chloride 250 ml @ 270. 833 mls/hr IV ONCE KHRIS Rx#: [id number] Ramucirumab 430 mg In 0.9 % 250 / 250 Sodium Chloride 207 ml @ 250 mls/hr IV ONCE KHRIS Rx#: [id number] dexAMETHasone sod phosphate/NS 50 / 50 12 mg In 50 ml @ 200 mls/hr IV ONCE KHRIS Rx#:[id number] Other: Weight 54.1 kg Weight in Grams 62442 Weight 54.1 kg BMI result Body Mass Index 20.5 - Constitutional Present: no acute distress - Routine HEENT Exam Head: Present: normal inspection Eye: Present: normal appearance ENT: Present: mucous membranes moist - Routine Neck Exam Present: full ROM - Routine Respiratory Exam Present: CTAB - Routine Cardiovascular Exam Cardiovascular: Present: RRR, S1, S2 - Routine Abdominal Exam Present: soft, nontender - Routine Rectal Exam Patient deferred: digital exam - Routine Extremities Exam Present: nontender - Routine Back/Spine/Pelvis Exam Back/Spine: Present: full ROM - Routine Skin Exam Present: intact - Routine Neurological Exam Present: alert, oriented X3, vision grossly intact - Detailed Neurological Exam: Coma Scale Eye Opening: Spontaneous (4) - Routine Psychiatric Exam Present: normal affect Data - Labs CBC & Chem 7: 04/22/21 10:15 04/22/21 10:15 Assessment and Plan Patient Active problem list reviewed?: Yes (1) Gastric cancer Status: Inactive (2) Gastric cancer Problem details: Gastrectomy, omentectomy, esophagojejunostomy, Melyssa-en-Y for gastric cancer Status: Acute Assessment and plan: This is a pleasant 64-year-old lady with a history of diabetes and diverticulosis. She had epigastric pain, off and on for a few months. She tells me she had GERD symptoms however she stopped eating sweets and those resolved. This was about 13 years ago. She was started on omeprazole recently which has been helping. Back in February she was admitted with a bout of diverticulitis. CT scan of the abdomen revealed: 1. Short segment mural thickening and pericolonic infiltrative changes in the proximal descending colon most consistent with acute diverticulitis or short segment colitis as a definitive diverticulum is not seen. 2. Mild left pelvocaliectasis without obstructing abnormality could be secondary to left ureteropelvic junction stenosis. Left renal cysts demonstrate benign features. Nonobstructing right upper pole intrarenal calculus. 3. Mild free fluid in the pelvis is presumed secondary to the colonic findings. 4. Very small hiatal hernia. Subsequently an upper endoscopy and colonoscopy was arranged. This was done on 04/[address] Fields. Colonoscopy was negative however upper endoscopy revealed: Poorly differentiated carcinoma, in the stomach. Possibility of metastatic lobular carcinoma of the breast was raised. Her breast exam was normal however, she tells me she has not had a mammogram in about 20 years. As per NCCN guidelines workup for gastric carcinoma that is recommended includes: 1. PET scan. 2. Endoscopic ultrasound to determine if disease is early versus locally advanced stage. She was sent [facility] to the [facility] to have a mammogram: No mammographic evidence of malignancy. I checked baseline labs, including the tumor markers: CEA 5.1, Ca 27.29 103. l proceeded with a PET scan for staging. This revealed: No foci of abnormal FDG activity are visualized. There are no abnormalities visualized suspicious for metastatic or other malignant lesions. l requested endoscopic ultrasound for exact pathological staging. This was scheduled at [facility], by Dr. Blanco. The area of abnormality was very subtle. He took several biopsies. Unfortunately they came back positive. She has seen Dr. Rajan, to consider surgery by minimally invasive method. It was decided to proceed with FLOT chemotherapy in the neoadjuvant setting. She was started on it a few months ago. She has tolerated it reasonably well. She had a CT scan of the chest abdomen pelvis on 10/19 which revealed: remarkable CT chest with no pulmonary nodule or mass. Right central venous port tip is in the distal SVC. Moderate sized hiatal hernia. There is a large stool in the colon suggestive of severe constipation. No abnormal sized abdominal lymph nodes seen. Distended urinary bladder. She underwent endoscopic ultrasound since imaging was not very helpful. This was done on November [address] Blanco. There were no lesions seen. The random biopsies of the stomach lining were negative. She then underwent surgery on 12/[address] Rajan. 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 Tumor site: Residual tumor most prominent along the greater curvature. Tumor size: A distinct tumor mass is not identified grossly. 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 Histologic type: Diffuse type(signet ring carcinoma.) Histologic grade: G3, poorly differentiated. Tumor extension: Tumor invades mucosa, submucosa, muscularis propria and subserosal connective tissue, extending to the peritoneal surface.(pT4a.) Margins: Final anastomotic do not appear negative for carcinoma. Residual carcinoma is identified in en face sections of the proximal margin.(discohesive tumor cells in the submucosa.) Treatment effect: Evident tumor regression but with extensive residual carcinoma, (partial response, score 2-3. LV I: Identified. Additional findings: Extensive tumor infiltrates omental adipose tissue and is present on the peritoneal surface,(pM1). Regional lymph nodes: Number examined: 5. Number positive: 2. Ancillary studies: HER2 fish testing is negative. Pathologic stage: Following preop neoadjuvant therapy. Primary tumor:ypN1. Metastatic disease:ypM1. She is currently recuperating from the surgery. Trying to gradually advance her diet. CEA level: 5.8, previously 4.40. I discussed further treatment options with her. The plan is to proceed with palliative chemotherapy, in the second-line setting, as delineated in the [place] trial. According to NCCN guidelines preferred regimen include: Paclitaxel 80 mg, on days 1, 8 and 15 + Ramucirumab 8 mg/kg, week 1 and 15 Q 28 days. l tried to see if I can substitute Abraxane for the paclitaxel. 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 She started it a couple of weeks ago. Her white count is low today 1.8 with ANC of 0.7. However since she has on aggressive tumor be decided to proceed with treatment today, to get quick response. PLAN: She will return tomorrow to receive the Neulasta, for chemotherapy-induced neutropenia. In the meantime she will continue to focus on nutrition and gaining her strength back. I will send prescription for Pepcid, for her epigastric pain, to her pharmacy. Thank you, CC: Dr. Clark. Dr. Fields. Dr. De Leon. Dr. Rajan - Time Spent With Patient Time Spent with Patient (in minutes): 35
--- NOTE | 2021-04-23 11:38 | HO.HEMONCPA ---
CARIN([id number]) APPROVED. AUTH#[id number]. DOS-04/22/21-05/07/22.
--- NOTE | 2021-04-23 16:37 | MHC.HEMONC ---
Patient present for Neulasta injection. Medication administered in [facility]. Patient tolerated it well. Patient departed the unit with her .
--- NOTE | 2021-04-26 13:05 | MHC.HEMONC ---
Famotidine called in to local pharmacy as it had been routed to [facility].
[2021-05-06 09:02] VITALS: BP 147/76; PULSE 89; RESP 18; TEMP 36.7; O2SAT 98; BMI 20.5
[2021-05-06 09:08] LABS: MANUAL DIFF FLAG NO
[2021-05-06 09:12] LABS: Basophils Percent Auto 0.2 % (0-2); Eosinophils Percent Auto 0.2 % (0-4); Hematocrit 33.6 % (37.0-47.0); Hemoglobin 10.8 g/dl (12.0-16.0); Imm Gran Abs Auto 0.06 X10*3/uL (0.00-0.03); Imm Gran Pct Auto 0.7 % (0.0-0.4); Lymphocytes Absolute Auto 1.9 X10*3/uL (1.2-4.9); Lymphocytes Percent Auto 23.6 % (20-40); Mean Corpuscular HGB Conc 32.1 g/dl (31.0-35.0); Mean Corpuscular Hemoglobin 30.3 pg (27.0-33.0); Mean Corpuscular Volume 94.1 fL (80.0-98.0); Mean Platelet Volume 10.7 fL (9.4-12.3); Monocytes Absolute Auto 0.4 X10*3/uL (0.1-1.2); Monocytes Percent Auto 4.9 % (2-11); Neutrophils Absolute Auto 5.7 x10*3/uL (2.0-8.3); Neutrophils Percent Auto 70.4 % (45-73); Platelet Count 131 X10*3/uL (160-400); Red Blood Count 3.57 X10*6/uL (4.20-5.50); Red Cell Distribution Width 15.5 % (11.0-16.0); White Blood Count 8.1 X10*3/uL (4.8-10.8)
[2021-05-06 09:29] LABS: Alanine Aminotransferase 19 U/L (0-31); Albumin Level 3.7 g/dL (3.5-5.0); Alkaline Phosphatase 133 U/L (39-117); Anion Gap 9 (12-20); Aspartate Amino Transferase 24 U/L (5-31); Bilirubin Direct < 0.2 mg/dL (0.0-0.5); Bilirubin Total 0.4 mg/dL (0.0-1.0); Blood Urea Nitrogen 8 mg/dL (9-16); Calcium 8.9 mg/dL (8.4-10.2); Carbon Dioxide 28 mmol/L (22-29); Chloride 107 mmol/L (96-108); Creatinine Clr Calc Pharmacy 85.5; Estimated Glomerular Filt Rate > 60; Glucose Random 76 mg/dL (60-115); Potassium 3.5 mmol/L (3.3-5.1); Sodium 140 mmol/L (135-145)
[2021-05-06 09:49] LABS: Appearance Urine CLEAR; Color Urine YELLOW; Glucose Urine UA NEG (NEG); Leukocyte Esterase Urine NEG (NEG); Nitrite Urine NEG (NEG); Urine Blood NEG (NEG); Urine Ketones 5 MG/DL (NEG); Urine Protein NEG (NEG-TRACE)
[2021-05-06 09:52] LABS: Total Protein Urine Random 15 mg/dL (<12)
[2021-05-06] MEDS: Acetaminophen 325 MG TABLET 650 MG PO (10:38)
[2021-05-06] MEDS: Ondansetron ODT 8 MG TAB.RAPDIS TRANSLINGU (10:39)
[2021-05-06] MEDS: diphenhydrAMINE HCL 50 MG/ML VIAL 25 MG IVPUSH (10:40)
[2021-05-06] MEDS: dexAMETHasone sod phosphate/NS 12 MG/50 ML PIGGYBACK 200 MG IV (10:40)
[2021-05-06] MEDS: Famotidine/PF 20 MG/2 ML VIAL IVPUSH (10:40)
[2021-05-06] MEDS: Heparin Sodium,Porcine Flush 500 UNIT/5 ML SYRINGE IVFLUSH (10:41)
--- NOTE | 2021-05-06 15:04 | MHC.HEMONC ---
Pt here for C2D1 RAMUCIRUMAB/PACLITAXEL. Port accessed with blood return noted. Labs drawn from port, urine specimen obtained. Specimens to lab. Pt states she continues with numbness in hands and feet at times. Lab results reviewed-okay to receive treatment today. Pre medicated with zofran, tylenol, pepcid, decadron, benadryl. Ramucirumab/Paclitaxel given as ordered-tolerated well. Port flushed with heparin and de accessed. Follow up appointment scheduled. Discharge packet given.
[2021-05-13 10:46] VITALS: BP 168/74; PULSE 81; RESP 18; TEMP 36.4; O2SAT 100; BMI 19.8
[2021-05-13 11:14] LABS: MANUAL DIFF FLAG NO
[2021-05-13 11:21] LABS: Basophils Percent Auto 0.8 % (0-2); Eosinophils Percent Auto 0.3 % (0-4); Hematocrit 29.8 % (37.0-47.0); Hemoglobin 9.7 g/dl (12.0-16.0); Imm Gran Abs Auto 0.04 X10*3/uL (0.00-0.03); Lymphocytes Absolute Auto 0.9 X10*3/uL (1.2-4.9); Lymphocytes Percent Auto 23.5 % (20-40); Mean Corpuscular HGB Conc 32.6 g/dl (31.0-35.0); Mean Corpuscular Hemoglobin 30.6 pg (27.0-33.0); Mean Platelet Volume 10.3 fL (9.4-12.3); Monocytes Absolute Auto 0.1 X10*3/uL (0.1-1.2); Monocytes Percent Auto 3.3 % (2-11); Neutrophils Absolute Auto 2.8 x10*3/uL (2.0-8.3); Neutrophils Percent Auto 71.1 % (45-73); Platelet Count 169 X10*3/uL (160-400); Red Blood Count 3.17 X10*6/uL (4.20-5.50); Red Cell Distribution Width 14.6 % (11.0-16.0)
[2021-05-13 11:41] LABS: Alanine Aminotransferase 13 U/L (0-31); Albumin Level 3.6 g/dL (3.5-5.0); Alkaline Phosphatase 104 U/L (39-117); Anion Gap 10 (12-20); Aspartate Amino Transferase 21 U/L (5-31); Bilirubin Direct 0.2 mg/dL (0.0-0.5); Bilirubin Total 0.3 mg/dL (0.0-1.0); Blood Urea Nitrogen 6 mg/dL (9-16); Calcium 8.9 mg/dL (8.4-10.2); Carbon Dioxide 28 mmol/L (22-29); Chloride 108 mmol/L (96-108); Creatinine Clr Calc Pharmacy 77.3; Estimated Glomerular Filt Rate > 60; Glucose Random 155 mg/dL (60-115); Potassium 3.8 mmol/L (3.3-5.1); Sodium 142 mmol/L (135-145); Total Protein 5.9 g/dL (6.5-8.0)
[2021-05-13] MEDS: diphenhydrAMINE HCL 50 MG/ML VIAL 25 MG IVPUSH (12:25)
[2021-05-13] MEDS: Acetaminophen 325 MG TABLET 650 MG PO (12:25)
[2021-05-13] MEDS: Famotidine/PF 20 MG/2 ML VIAL IVPUSH (12:27)
[2021-05-13] MEDS: dexAMETHasone sod phosphate/NS 12 MG/50 ML PIGGYBACK 200 MG IV (12:29)
[2021-05-13] MEDS: Ondansetron ODT 8 MG TAB.RAPDIS TRANSLINGU (12:34)
--- NOTE | 2021-05-13 15:24 | MHC.HEMONC ---
C2D8 PACLITAXEL. Port accessed with blood return. Labs drawn from port-specimen to lab. Pt states she has a few days of nausea after chemotherapy-then feels better until the next chemo therapy. Lab results reviewed, WBC 4 today. Pre medicated with zofran, benadryl, pepcid, decadron, tylenol. Paclitaxel given as directed-tolerated well. Port flushed with heparin and de accessed. Follow up appointment scheduled. Discharge packet given
[2021-05-20 09:53] VITALS: BP 144/74; PULSE 76; RESP 18; TEMP 36.6; O2SAT 99; BMI 19.5
[2021-05-20 10:35] LABS: Appearance Urine HAZY; Color Urine YELLOW; Glucose Urine UA NEG (NEG); Leukocyte Esterase Urine 1+ (NEG); Nitrite Urine NEG (NEG); PH 5.5 (5.0-8.0); Specific Gravity - Urine >= 1.030 (1.005-1.025); Urine Blood NEG (NEG); Urine Ketones 15 MG/DL (NEG); Urine Protein TRACE MG/DL (NEG-TRACE)
[2021-05-20 10:37] LABS: Basophils Percent Auto 0.5 % (0-2); Eosinophils Percent Auto 0.9 % (0-4); Hematocrit 29.4 % (37.0-47.0); Hemoglobin 9.5 g/dl (12.0-16.0); Imm Gran Abs Auto 0.01 X10*3/uL (0.00-0.03); Imm Gran Pct Auto 0.5 % (0.0-0.4); Lymphocytes Absolute Auto 0.9 X10*3/uL (1.2-4.9); Lymphocytes Percent Auto 42.5 % (20-40); MANUAL DIFF FLAG SCAN; Mean Corpuscular HGB Conc 32.3 g/dl (31.0-35.0); Mean Corpuscular Hemoglobin 30.7 pg (27.0-33.0); Mean Corpuscular Volume 95.1 fL (80.0-98.0); Mean Platelet Volume 10.6 fL (9.4-12.3); Monocytes Absolute Auto 0.1 X10*3/uL (0.1-1.2); Neutrophils Absolute Auto 1.1 x10*3/uL (2.0-8.3); Neutrophils Percent Auto 50.6 % (45-73); Platelet Count 168 X10*3/uL (160-400); Red Blood Count 3.09 X10*6/uL (4.20-5.50); Red Cell Distribution Width 14.6 % (11.0-16.0); SCAN SMEAR FLAG 1
[2021-05-20 10:38] LABS: White Blood Count 2.2 X10*3/uL (4.8-10.8)
[2021-05-20 10:45] LABS: Alanine Aminotransferase 11 U/L (0-31); Albumin Level 3.6 g/dL (3.5-5.0); Alkaline Phosphatase 92 U/L (39-117); Anion Gap 9 (12-20); Aspartate Amino Transferase 17 U/L (5-31); Bilirubin Direct 0.2 mg/dL (0.0-0.5); Bilirubin Total 0.6 mg/dL (0.0-1.0); Blood Urea Nitrogen 8 mg/dL (9-16); Calcium 9.3 mg/dL (8.4-10.2); Carbon Dioxide 29 mmol/L (22-29); Chloride 108 mmol/L (96-108); Creatinine Clr Calc Pharmacy 80.1; Estimated Glomerular Filt Rate > 60; Glucose Random 105 mg/dL (60-115); Potassium 3.6 mmol/L (3.3-5.1); Sodium 142 mmol/L (135-145); Total Protein 5.9 g/dL (6.5-8.0)
[2021-05-20 10:50] LABS: Bacteria Urine TRACE /LPF; Mucus Urine 1+ /LPF; RBC Urine 0 /HPF (0); Squamous Epithelial Cell Urine 1+ /LPF; WBC Urine 0-2 /HPF (0-4)
[2021-05-20 10:51] LABS: Calcium Oxalate Crystals Urine 3+ /LPF
[2021-05-20 11:09] LABS: SLIDE REVIEW VERIFIED
[2021-05-20] MEDS: diphenhydrAMINE HCL 50 MG/ML VIAL 25 MG IVPUSH (11:24)
[2021-05-20] MEDS: Famotidine/PF 20 MG/2 ML VIAL IVPUSH (11:29)
[2021-05-20] MEDS: Acetaminophen 325 MG TABLET 650 MG PO (11:30)
[2021-05-20] MEDS: dexAMETHasone sod phosphate/NS 12 MG/50 ML PIGGYBACK 200 MG IV (11:32)
[2021-05-20] MEDS: Ondansetron ODT 8 MG TAB.RAPDIS TRANSLINGU (12:14)
--- NOTE | 2021-05-20 14:35 | PM.HEMONCPN ---
Medical Summary - Medical Summary Date of Service: 05/20/21 Chief complaint: follow-up for: Recurrent gastric carcinoma. Medical Summary: DIAGNOSIS: GASTRIC CARCINOMA. CURRENT THERAPY: 1. FLOT CHEMOTHERAPY, CYCLE 4, day 15. 2. She then underwent surgery on 12/[address] Rajan. 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 Tumor site: Residual tumor most prominent along the greater curvature. Tumor size: A distinct tumor mass is not identified grossly. 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 Histologic type: Diffuse type(signet ring carcinoma.) Histologic grade: G3, poorly differentiated. Tumor extension: Tumor invades mucosa, submucosa, muscularis propria and subserosal connective tissue, extending to the peritoneal surface.(pT4a.) Margins: Final anastomotic do not appear negative for carcinoma. Residual carcinoma is identified in en face sections of the proximal margin.(discohesive tumor cells in the submucosa.) Treatment effect: Evident tumor regression but with extensive residual carcinoma, (partial response, score 2-3. LV I: Identified. Additional findings: Extensive tumor infiltrates omental adipose tissue and is present on the peritoneal surface,(pM1). Regional lymph nodes: Number examined: 5. Number positive: 2. Ancillary studies: HER2 fish testing is negative. Pathologic stage: Following preop neoadjuvant therapy. Primary tumor:ypN1. Metastatic disease:ypM1. 3. Started on Taxol and Ramucirumab, cycle 2 day 15 today. Interval History Interval history: Sheryl Espinoza is a pleasant 65 year old lady here for a follow-up visit. She is here for cycle 2 day 15 of her chemotherapy. Lately, she has noticed some epistaxis over the last couple of weeks. It does not appear to be running out. Her energy level she says: Could be better. She also complains of an epigastric pain, that is fleeting. She cannot eat much due to the pain. Her symptoms would last over the next couple days after treatment in then they improve. She denies heartburn or indigestion. She has oxycodone however she tries to take it sparingly. Takes it once at night. That is only way she can sleep 4-5 hours. Tylenol is not that effective. She has lost a couple of lb. She is trying to optimize her diet. Since her stomach is not there she has to eat soft small meals frequently. She gets intermittent diarrhea, almost every other day. She goes a couple times in a day. No gross blood in the stools. Denies any chest pain or trouble with breathing. Her appetite is good it is just that she is unable to eat much at 1 sitting. She is in good spirits. Rest of the review of systems is unremarkable. She does try to work out for 20 minutes every day. Recent history: She had surgery done. She initially had an endoscopic ultrasound by Dr. Blanco, in November. There were no lesions seen. The random biopsies of the stomach lining were negative. She then underwent surgery on 12/[address] Rajan. 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 Tumor site: Residual tumor most prominent along the greater curvature. Tumor size: A distinct tumor mass is not identified grossly. 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 Histologic type: Diffuse type(signet ring carcinoma.) Histologic grade: G3, poorly differentiated. Tumor extension: Tumor invades mucosa, submucosa, muscularis propria and subserosal connective tissue, extending to the peritoneal surface.(pT4a.) Margins: Final anastomotic do not appear negative for carcinoma. Residual carcinoma is identified in en face sections of the proximal margin.(discohesive tumor cells in the submucosa.) Treatment effect: Evident tumor regression but with extensive residual carcinoma, (partial response, score 2-3. LV I: Identified. Additional findings: Extensive tumor infiltrates omental adipose tissue and is present on the peritoneal surface,(pM1). Regional lymph nodes: Number examined: 5. Number positive: 2. Ancillary studies: HER2 fish testing is negative. Pathologic stage: Following preop neoadjuvant therapy. Primary tumor:ypN1. Metastatic disease:ypM1. Previous history: She was admitted to the hospital back towards the end of February,, with symptoms of acute diverticulitis and UTI. She had presented with 3 days history of left flank pain and dysuria. Abdominal pain was accompanied by decreased appetite nausea and 1 episode of vomiting on 02/27. CT scan of the abdomen revealed: 1.Short segment mural thickening and pericolonic infiltrative changes in the proximal descending colon most consistent with acute diverticulitis or short segment colitis. 2. Mild left pelvo- caliectasis, without obstructing abnormality could be secondary to left ureteropelvic junction stenosis. Left renal cyst demonstrated benign features. Nonobstructing right upper pole intrarenal calculus. 3. mild free fluid in the pelvis is presumed secondary to colonic findings. 4. Very small hiatus hernia. Patient was started on IV antibiotics and admitted. In addition she was noted to have a urinary tract infection. Blood cultures showed Gram-negative rods, likely bacteremia from the UTI. She did note improvement from abdominal pain from 10/ to 4/10 the following day. She also complained of heartburn and odynophagia of for a few days. She was seen by GI. Recommendation was to continue IV antibiotics until abdominal pain improves. Start oral omeprazole for heartburn and odynophagia. To be scheduled for an upper endoscopy and colonoscopy, in 5-6 weeks time, after resolution of the diverticulitis. This was done on 04/24. Pathology revealed: Stomach body biopsy: Poorly differentiated carcinoma. Morphology and immunophenotype are not 100% specific but raise the possibility of metastatic lobular carcinoma of the breast. Other primary sources include gastric and other upper GI locations. ROS: She denies easy fatigability. Her appetite is good. She has lost some weight. One hundred fifty down to 135 lb. Denies headache no dizziness. No chest pain or trouble breathing. No cough nor shortness of breath no chest pain. She had some dyspepsia type symptoms when she was in house. The omeprazole has taken care of these. Occasional cramping prior to bowel movement. Denies diarrhea. Denies gross blood in the stools. She never had a previous colonoscopy. She had recent UTI symptoms. These have resolved. She has arthritis involving her knees. Denies any focal weakness. No depression/anxiety. Family history: Dad had pancreatic cancer at the age of 67. Mom had non-Hodgkin's lymphoma. 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 She has 3 children. She smoked as a teenager. She rarely drinks. Review of Systems - Constitutional Reports no additional constitutional complaints, Reports lack of energy, Reports malaise, Reports weight loss - Eyes Reports no additional eye complaints - ENT Reports no additional ear, nose, mouth, and throat complaints - Cardiovascular Reports no additional cardiovascular complaints - Respiratory Reports no additional respiratory complaints - Gastrointestinal Reports no additional gastrointestinal complaints - Genitourinary Reports no additional female genitourinary complaints - Musculoskeletal Reports no additional musculoskeletal complaints - Integumentary/Breasts Skin/Breast: Reports no additional skin complaints - Neurologic Reports no additional neurologic complaints, Reports hearing normal, Reports weakness - Psychiatric Reports no additional psychiatric complaints - Endocrine Reports no additional endocrine complaints - Hematologic/Lymphatic Reports no additional hematologic/lymphatic complaints - Allergic/Immunologic Reports no additional allergic/immunologic complaints [facility] Medical History: Medical History (Last Reviewed 03/22/21 @ 16:05 by Los Martínez RN) History of cellulitis Hx of diverticulitis of colon Hypercholesterolemia Lab test negative for COVID-19 virus Type 2 diabetes mellitus with hyperglycemia Functional capacity: independent ambulation Patient : No Family History: Family History (Last Reviewed 03/22/21 @ 16:08 by Los Martínez RN) Father Pancreatic cancer Mother NHL (non-Hodgkin's lymphoma) Maternal Grandfather Prostate cancer Maternal Grandmother Diabetes Heart disease Paternal Grandfather Diabetes Son Asthma Surgical History: Surgical History (Last Reviewed 03/22/21 @ 16:06 by Los Martínez RN) H/O tubal ligation History of esophagogastroduodenoscopy (EGD) History of gastrectomy Hx of appendectomy Hx of colonoscopy Hx of tonsillectomy S/P cholecystectomy Onset Date: ~1988 S/P right knee arthroscopy Onset Date: ~2002 Social History: Social History (Last Reviewed 03/22/21 @ 16:06 by Los Martínez RN) Living Situation History: Household Members: Spouse Household Members: Children Housing: House Are you a primary assurance services manager health care to a significant other at home: No Do you presently have visiting nurse or other home services: No Alcohol History Details: Currently Displaying Signs/Symptoms of Alcohol Withdrawal: No Tobacco History: Second Hand Smoke Exposure: No Substance Use History: Use of substances other than those prescribed or required for medical reasons: No Domestic Abuse History: Have you been hit, kicked, punched, or otherwise hurt by someone within the past year? 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 Performance Status ECOG Performance Status: 1 Home Medications and Allergies Current Medications: Current Medications Acetaminophen (Acetaminophen 325 Mg Tablet) 650 mg PO ONCE KHRIS Stop: 05/20/21 23:59 Last Admin: 05/20/21 11:30 Dose: 650 mg Documented by: Diphenhydramine HCl (Diphenhydramine Hcl 50 Mg/Ml Vial) 25 mg IVPUSH ONCE KHRIS Stop: 05/20/21 23:59 Last Admin: 05/20/21 11:24 Dose: 25 mg Documented by: Famotidine (Famotidine/Pf 20 Mg/2 Ml Vial) 20 mg IVPUSH ONCE KHRIS Stop: 05/20/21 23:59 Last Admin: 05/20/21 11:29 Dose: 20 mg Documented by: Dexamethasone Sodium Phosphate (Decadron) 12 mg in 50 mls @ 200 mls/hr IV ONCE KHRIS Stop: 05/20/21 23:59 Last Infusion: 05/20/21 11:47 Dose: Infused Documented by: Paclitaxel 125 mg/ Sodium (Chloride) 270.8333 mls @ 270.833 mls/hr IV ONCE KHRIS Stop: 05/20/21 23:59 Last Admin: 05/20/21 13:31 Dose: 270.83 mls/hr Documented by: Ramucirumab 430 mg/ Sodium (Chloride) 250 mls @ 250 mls/hr IV ONCE KHRIS Stop: 05/20/21 23:59 Last Infusion: 05/20/21 13:21 Dose: Infused Documented by: Pegfilgrastim (Pegfilgrastim Onpro 6 Mg/0.6 Ml Syr.W..Inj) 6 mg SUBCUT ONCE ONE Stop: 05/20/21 23:59 Home Medications Medication Instructions Recorded Confirmed Type multivitamin 1 tab PO DAILY 05/11/20 05/13/21 History Allergies Allergy/AdvReac Type Severity Reaction Status Date / Time meperidine [From Demerol] Allergy Severe Swelling Verified 05/06/21 11:05 Exam Vital signs: Vital Signs Temp 97.9 F 05/20/21 09:53 Pulse 76 05/20/21 09:53 Resp 18 05/20/21 09:53 BP 144/74 H 05/20/21 09:53 Pulse Ox 99 05/20/21 09:53 Intake & Output 05/19/21 05/20/21 05/20/21 18:59 06:59 18:59 Intake Total 300 / 300 Balance 300 / 300 Intake: Intake, IV Amount 300 / 300 Ramucirumab 430 mg In 0.9 % 250 / 250 Sodium Chloride 207 ml @ 250 mls/hr IV ONCE KHRIS Rx#: [id number] dexAMETHasone sod phosphate/NS 50 / 50 12 mg In 50 ml @ 200 mls/hr IV ONCE KHRIS Rx#:[id number] Other: Weight 51.6 kg [place] Weight in Grams 38723 Weight 51.6 kg BMI result Body Mass Index 19.5 - Constitutional Present: no acute distress - Routine HEENT Exam Head: Present: normal inspection Eye: Present: normal appearance ENT: Present: mucous membranes moist - Routine Neck Exam Present: full ROM - Routine Respiratory Exam Present: CTAB - Routine Cardiovascular Exam Cardiovascular: Present: RRR, S1, S2 - Routine Abdominal Exam Present: soft, nontender - Routine Rectal Exam Patient deferred: digital exam - Routine Extremities Exam Present: nontender - Routine Back/Spine/Pelvis Exam Back/Spine: Present: full ROM - Routine Skin Exam Present: intact - Routine Neurological Exam Present: alert, oriented X3, vision grossly intact - Detailed Neurological Exam: Coma Scale Eye Opening: Spontaneous (4) - Routine Psychiatric Exam Present: normal affect Data - Labs CBC & Chem 7: 05/20/21 10:10 05/20/21 10:10 Assessment and Plan Patient Active problem list reviewed?: Yes (1) Gastric cancer Status: Inactive (2) Gastric cancer Problem details: Gastrectomy, omentectomy, esophagojejunostomy, Melyssa-en-Y for gastric cancer Status: Acute Assessment and plan: This is a pleasant 64-year-old lady with a history of diabetes and diverticulosis. She had epigastric pain, off and on for a few months. She tells me she had GERD symptoms however she stopped eating sweets and those resolved. This was about 13 years ago. She was started on omeprazole recently which has been helping. Back in February she was admitted with a bout of diverticulitis. CT scan of the abdomen revealed: 1. Short segment mural thickening and pericolonic infiltrative changes in the proximal descending colon most consistent with acute diverticulitis or short segment colitis as a definitive diverticulum is not seen. 2. Mild left pelvocaliectasis without obstructing abnormality could be secondary to left ureteropelvic junction stenosis. Left renal cysts demonstrate benign features. Nonobstructing right upper pole intrarenal calculus. 3. Mild free fluid in the pelvis is presumed secondary to the colonic findings. 4. Very small hiatal hernia. Subsequently an upper endoscopy and colonoscopy was arranged. This was done on 04/[address] Fields. Colonoscopy was negative however upper endoscopy revealed: Poorly differentiated carcinoma, in the stomach. Possibility of metastatic lobular carcinoma of the breast was raised. Her breast exam was normal however, she tells me she has not had a mammogram in about 20 years. As per NCCN guidelines workup for gastric carcinoma that is recommended includes: 1. PET scan. 2. Endoscopic ultrasound to determine if disease is early versus locally advanced stage. [facility]: No mammographic evidence of malignancy. I checked baseline labs, including the tumor markers: CEA 5.1, Ca 27.29 103. l proceeded with a PET scan for staging. This revealed: No foci of abnormal FDG activity are visualized. There are no abnormalities visualized suspicious for metastatic or other malignant lesions. l requested endoscopic ultrasound for exact pathological staging. This was scheduled at [facility], by Dr. Blanco. The area of abnormality was very subtle. He took several biopsies. Unfortunately they came back positive. She has seen Dr. Rajan, to consider surgery by minimally invasive method. It was decided to proceed with FLOT chemotherapy in the neoadjuvant setting. She was started on it a few months ago. She has tolerated it reasonably well. She had a CT scan of the chest abdomen pelvis on 10/19 which revealed: remarkable CT chest with no pulmonary nodule or mass. Right central venous port tip is in the distal SVC. Moderate sized hiatal hernia. There is a large stool in the colon suggestive of severe constipation. No abnormal sized abdominal lymph nodes seen. Distended urinary bladder. She underwent endoscopic ultrasound since imaging was not very helpful. This was done on November [address] Blanco. There were no lesions seen. The random biopsies of the stomach lining were negative. She then underwent surgery on 12/[address] Rajan. 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 Tumor site: Residual tumor most prominent along the greater curvature. Tumor size: A distinct tumor mass is not identified grossly. 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 Histologic type: Diffuse type(signet ring carcinoma.) Histologic grade: G3, poorly differentiated. Tumor extension: Tumor invades mucosa, submucosa, muscularis propria and subserosal connective tissue, extending to the peritoneal surface.(pT4a.) Margins: Final anastomotic do not appear negative for carcinoma. Residual carcinoma is identified in en face sections of the proximal margin.(discohesive tumor cells in the submucosa.) Treatment effect: Evident tumor regression but with extensive residual carcinoma, (partial response, score 2-3. LV I: Identified. Additional findings: Extensive tumor infiltrates omental adipose tissue and is present on the peritoneal surface,(pM1). Regional lymph nodes: Number examined: 5. Number positive: 2. Ancillary studies: HER2 fish testing is negative. Pathologic stage: Following preop neoadjuvant therapy. Primary tumor:ypN1. Metastatic disease:ypM1. She has recuperated from the surgery. Gradually advanced her diet. CEA level: 5.60, previously, 5.8, 4.40, prior to that. I discussed further treatment options with her. The plan was made to proceed with palliative chemotherapy, in the second-line setting, as delineated in the [place] trial. According to NCCN guidelines preferred regimen include: Paclitaxel 80 mg, on days 1, 8 and 15 + Ramucirumab 8 mg/kg, week 1 and 15 Q 28 days. l tried to see if I can substitute Abraxane for the paclitaxel. However unfortunately Abraxane was not available, then, from the accounts receivable associate. Overall she is tolerating the treatment reasonably well. Her white count is low today 2.2 with ANC of 1100. However since she has on aggressive tumor be decided to proceed with treatment today, to get quick response. PLAN: She will return tomorrow to receive the Neulasta, for chemotherapy-induced neutropenia. The plan is to proceed with upper endoscopy after completion of 3 cycles, to gauge her response. In the meantime she will continue to focus on nutrition and gaining her strength back. I will send prescription for oxycodone, for her epigastric pain, to her pharmacy. Thank you, CC: Dr. Clark. Dr. Fields. Dr. De Leon. Dr. Rajan - Time Spent With Patient Time Spent with Patient (in minutes): 30
[2021-05-20] MEDS: Pegfilgrastim Onpro 6 MG/0.6 ML SYR.W..INJ SUBCUT (14:43)
--- NOTE | 2021-05-20 15:09 | MHC.HEMONC ---
Call to [facility] [phone] to schedule an EGD for Sheryl. Spoke with Eri and she confirmed that Bernadine, production planner scheduler will try and schedule the EGD between 06/24/21 and 07/01/21.
--- NOTE | 2021-05-20 16:49 | MHC.HEMONC ---
Here for C2D15 Ramucirumab/Paclitaxel. States feeling well. Port accessed with good blood return noted. Lab draw done and results reviewed. Urine spec sent to lab and results reviewed. Premeds given as ordered. Treatment done and tolerated well. Dr Cisneros in to see pt in follow up. Scheduled for next cycle in 2 weeks. Home with michaellasta onpro.
[2021-06-03 08:50] VITALS: BP 157/67; PULSE 89; TEMP 36.8; O2SAT 100; BMI 20.2
[2021-06-03 09:13] LABS: MANUAL DIFF FLAG NO
[2021-06-03 09:18] LABS: Basophils Percent Auto 0.3 % (0-2); Eosinophils Percent Auto 0.4 % (0-4); Hematocrit 31.4 % (37.0-47.0); Imm Gran Abs Auto 0.06 X10*3/uL (0.00-0.03); Imm Gran Pct Auto 0.8 % (0.0-0.4); Lymphocytes Absolute Auto 1.4 X10*3/uL (1.2-4.9); Lymphocytes Percent Auto 17.3 % (20-40); Mean Corpuscular HGB Conc 31.8 g/dl (31.0-35.0); Mean Corpuscular Hemoglobin 31.5 pg (27.0-33.0); Mean Corpuscular Volume 99.1 fL (80.0-98.0); Mean Platelet Volume 10.9 fL (9.4-12.3); Monocytes Absolute Auto 0.4 X10*3/uL (0.1-1.2); Neutrophils Percent Auto 76.2 % (45-73); Platelet Count 120 X10*3/uL (160-400); Red Blood Count 3.17 X10*6/uL (4.20-5.50); Red Cell Distribution Width 15.9 % (11.0-16.0); White Blood Count 7.8 X10*3/uL (4.8-10.8)
[2021-06-03 09:19] LABS: Appearance Urine HAZY; Glucose Urine UA NEG (NEG); Leukocyte Esterase Urine TRACE (NEG); Nitrite Urine NEG (NEG); Urine Blood TRACE (NEG); Urine Ketones NEG (NEG); Urine Protein NEG (NEG-TRACE)
[2021-06-03 09:27] LABS: Bacteria Urine 2+ /LPF; Mucus Urine 1+ /LPF; RBC Urine 0-2 /HPF (0); Squamous Epithelial Cell Urine 2+ /LPF
[2021-06-03 09:43] LABS: Alanine Aminotransferase 15 U/L (0-31); Albumin Level 3.4 g/dL (3.5-5.0); Alkaline Phosphatase 131 U/L (39-117); Anion Gap 10 (12-20); Aspartate Amino Transferase 21 U/L (5-31); Bilirubin Direct < 0.2 mg/dL (0.0-0.5); Bilirubin Total 0.2 mg/dL (0.0-1.0); Blood Urea Nitrogen 8 mg/dL (9-16); Calcium 8.8 mg/dL (8.4-10.2); Carbon Dioxide 27 mmol/L (22-29); Chloride 104 mmol/L (96-108); Creatinine Clr Calc Pharmacy 79.1; Estimated Glomerular Filt Rate > 60; Glucose Random 189 mg/dL (60-115); Potassium 3.9 mmol/L (3.3-5.1); Sodium 137 mmol/L (135-145); Total Protein 5.6 g/dL (6.5-8.0)
[2021-06-03] MEDS: Acetaminophen 325 MG TABLET 650 MG PO (10:06)
[2021-06-03] MEDS: Heparin Sodium,Porcine Flush 500 UNIT/5 ML SYRINGE IVFLUSH (10:07)
[2021-06-03] MEDS: Ondansetron ODT 8 MG TAB.RAPDIS TRANSLINGU (10:07)
[2021-06-03] MEDS: Famotidine/PF 20 MG/2 ML VIAL IVPUSH (10:07)
[2021-06-03] MEDS: diphenhydrAMINE HCL 50 MG/ML VIAL 25 MG IVPUSH (10:08)
[2021-06-03] MEDS: dexAMETHasone sod phosphate/NS 12 MG/50 ML PIGGYBACK 200 MG IV (10:08)
[2021-06-03 10:27] LABS: Color Urine YELLOW
--- NOTE | 2021-06-03 16:06 | MHC.HEMONC ---
Pt here for C3D1 PACLITAXEL/RANUCIRUMAB. Port accessed with blood return noted. Labs drawn from port-specimen and urine specimen sent to lab. PT states she feels good today. Lab results reviewed-okay to receive treatment today. Pre medicated with zofran, benadryl, pepcid, decadron, tylenol. Ranucirumab/Paclitaxel given as ordered-tolerated well. Port flushed with heparin and de accessed. Follow up appointment scheduled. Discharge packet given.
[2021-06-10 09:25] VITALS: BP 149/66; PULSE 77; RESP 18; TEMP 36.8; O2SAT 99
[2021-06-10 09:25] LABS: MANUAL DIFF FLAG NO
[2021-06-10 09:50] LABS: Alanine Aminotransferase 13 U/L (0-31); Albumin Level 3.5 g/dL (3.5-5.0); Alkaline Phosphatase 102 U/L (39-117); Anion Gap 10 (12-20); Aspartate Amino Transferase 21 U/L (5-31); Bilirubin Direct < 0.2 mg/dL (0.0-0.5); Bilirubin Total 0.2 mg/dL (0.0-1.0); Blood Urea Nitrogen 8 mg/dL (9-16); Calcium 8.8 mg/dL (8.4-10.2); Carbon Dioxide 29 mmol/L (22-29); Chloride 108 mmol/L (96-108); Creatinine Clr Calc Pharmacy 93.7; Estimated Glomerular Filt Rate > 60; Glucose Random 56 mg/dL (60-115); Potassium 3.6 mmol/L (3.3-5.1); Sodium 143 mmol/L (135-145); Total Protein 5.6 g/dL (6.5-8.0)
--- NOTE | 2021-06-10 09:51 | MHC.HEMONC ---
Nurse tonya t/c from [facility]ki at chemistry, reported critical glucose of 56. Nurse Marya and Dr. Cisneros were notified. Pt is eating breakfast presently.
[2021-06-10 10:27] LABS: Basophils Percent Auto 0.5 % (0-2); Eosinophils Percent Auto 0.3 % (0-4); Hematocrit 28.3 % (37.0-47.0); Hemoglobin 9.1 g/dl (12.0-16.0); Imm Gran Abs Auto 0.06 X10*3/uL (0.00-0.03); Imm Gran Pct Auto 1.5 % (0.0-0.4); Lymphocytes Absolute Auto 0.7 X10*3/uL (1.2-4.9); Lymphocytes Percent Auto 16.8 % (20-40); Mean Corpuscular HGB Conc 32.2 g/dl (31.0-35.0); Mean Corpuscular Hemoglobin 31.4 pg (27.0-33.0); Mean Corpuscular Volume 97.6 fL (80.0-98.0); Mean Platelet Volume 10.7 fL (9.4-12.3); Monocytes Absolute Auto 0.2 X10*3/uL (0.1-1.2); Monocytes Percent Auto 3.8 % (2-11); Neutrophils Absolute Auto 3.1 x10*3/uL (2.0-8.3); Neutrophils Percent Auto 77.1 % (45-73); Platelet Count 139 X10*3/uL (160-400); Red Cell Distribution Width 15.3 % (11.0-16.0)
[2021-06-10] MEDS: Heparin Sodium,Porcine Flush 500 UNIT/5 ML SYRINGE IVFLUSH (10:50)
[2021-06-10] MEDS: Acetaminophen 325 MG TABLET 650 MG PO (10:50)
[2021-06-10] MEDS: Ondansetron ODT 8 MG TAB.RAPDIS TRANSLINGU (10:51)
[2021-06-10] MEDS: Famotidine/PF 20 MG/2 ML VIAL IVPUSH (10:51)
[2021-06-10] MEDS: dexAMETHasone sod phosphate/NS 12 MG/50 ML PIGGYBACK 200 MG IV (10:53)
[2021-06-10] MEDS: diphenhydrAMINE HCL 50 MG/ML VIAL 25 MG IVPUSH (10:59)
--- NOTE | 2021-06-10 14:58 | MHC.HEMONC ---
Pt here for C3D8 PACLITAXEL. Port accessed with blood return noted. Labs drawn from port-specimen to lab. Pt states she has fatigue, some diarrhea and numbness in her feet. Glucose level [address] Cisneros-pt eating breakfast. WBC 4, ANC 3.1 Okay to receive treatment today. Pre medicated with zofran, benadryl, pepcid, decadron, and tylenol. Paclitaxel given as ordered. Tolerated well. Port flushed with heparin and de accessed. Next appointment scheduled for 06/17/21. Discharge packet given
[2021-06-17 08:52] VITALS: BP 161/58; PULSE 81; RESP 18; TEMP 36.5; O2SAT 99; BMI 19.7
[2021-06-17 09:18] LABS: MANUAL DIFF FLAG NO
[2021-06-17 09:23] LABS: Basophils Percent Auto 0.6 % (0-2); Eosinophils Percent Auto 0.6 % (0-4); Hematocrit 29.3 % (37.0-47.0); Hemoglobin 9.4 g/dl (12.0-16.0); Imm Gran Abs Auto 0.03 X10*3/uL (0.00-0.03); Imm Gran Pct Auto 0.9 % (0.0-0.4); Lymphocytes Absolute Auto 1.1 X10*3/uL (1.2-4.9); Lymphocytes Percent Auto 31.8 % (20-40); Mean Corpuscular HGB Conc 32.1 g/dl (31.0-35.0); Mean Corpuscular Hemoglobin 31.5 pg (27.0-33.0); Mean Corpuscular Volume 98.3 fL (80.0-98.0); Mean Platelet Volume 10.5 fL (9.4-12.3); Monocytes Absolute Auto 0.2 X10*3/uL (0.1-1.2); Monocytes Percent Auto 4.5 % (2-11); Neutrophils Absolute Auto 2.1 x10*3/uL (2.0-8.3); Neutrophils Percent Auto 61.6 % (45-73); Platelet Count 187 X10*3/uL (160-400); Red Blood Count 2.98 X10*6/uL (4.20-5.50); Red Cell Distribution Width 15.3 % (11.0-16.0); White Blood Count 3.4 X10*3/uL (4.8-10.8)
[2021-06-17 09:24] LABS: Appearance Urine HAZY; Color Urine YELLOW; Glucose Urine UA NEG (NEG); Leukocyte Esterase Urine 1+ (NEG); Nitrite Urine NEG (NEG); PH 5.5 (5.0-8.0); Specific Gravity - Urine >= 1.030 (1.005-1.025); Urine Blood TRACE (NEG); Urine Ketones 5 MG/DL (NEG); Urine Protein TRACE MG/DL (NEG-TRACE)
[2021-06-17 09:37] LABS: RBC Urine 0-2 /HPF (0)
[2021-06-17 09:38] LABS: Bacteria Urine 1+ /LPF; Calcium Oxalate Crystals Urine TRACE /LPF; Squamous Epithelial Cell Urine TRACE /LPF
[2021-06-17 09:40] LABS: Alanine Aminotransferase 15 U/L (0-31); Albumin Level 3.6 g/dL (3.5-5.0); Alkaline Phosphatase 96 U/L (39-117); Anion Gap 10 (12-20); Aspartate Amino Transferase 20 U/L (5-31); Bilirubin Direct < 0.2 mg/dL (0.0-0.5); Bilirubin Total 0.3 mg/dL (0.0-1.0); Blood Urea Nitrogen 9 mg/dL (9-16); Carbon Dioxide 28 mmol/L (22-29); Chloride 104 mmol/L (96-108); Creatinine Clr Calc Pharmacy 85.4; Estimated Glomerular Filt Rate > 60; Glucose Random 92 mg/dL (60-115); Potassium 3.9 mmol/L (3.3-5.1); Sodium 138 mmol/L (135-145)
[2021-06-17] MEDS: Acetaminophen 325 MG TABLET 650 MG PO (09:53)
[2021-06-17] MEDS: Ondansetron ODT 8 MG TAB.RAPDIS TRANSLINGU (09:53)
[2021-06-17] MEDS: diphenhydrAMINE HCL 50 MG/ML VIAL 25 MG IVPUSH (09:54)
[2021-06-17] MEDS: Famotidine/PF 20 MG/2 ML VIAL IVPUSH (09:54)
[2021-06-17] MEDS: dexAMETHasone sod phosphate/NS 12 MG/50 ML PIGGYBACK 200 MG IV (10:02)
[2021-06-17] MEDS: Heparin Sodium,Porcine Flush 500 UNIT/5 ML SYRINGE IVFLUSH (13:24)
[2021-06-17] MEDS: Pegfilgrastim Onpro 6 MG/0.6 ML SYR.W..INJ SUBCUT (13:36)
--- NOTE | 2021-06-17 15:10 | MHC.HEMONC ---
Here for C3 D15 Ramucirumab/Paclitaxel. Port accessed with good blood return noted. Labs drawn, urine spec to lab. Results reviewed. States feels well since last treatment except for some difficulty with eating. States she feels hungry, but if she eats too much, she then has abd pain. Premeds given as ordered. Treatment done and tolerated well. Dr Cisneros in to see pt in follow up. Call made to Dr Fields's office, and EGD scheduled for Monday06/21/21 at 1300. Pt given appointment time and instructed to fast for 8 hours prior to procedure. Port flushed with heparin 500unit flush and de-accessed. Pt discharged to home with neulasta onpro in place. Scheduled for next treatment in 2 weeks.
--- NOTE | 2021-06-17 16:49 | PM.HEMONCPN ---
Medical Summary - Medical Summary Date of Service: 06/17/21 Chief complaint: Follow-up for: Recurrent gastric carcinoma. Medical Summary: DIAGNOSIS: GASTRIC CARCINOMA. CURRENT THERAPY: 1. FLOT CHEMOTHERAPY, CYCLE 4, day 15. 2. She then underwent surgery on 12/[address] Rajan. 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 Tumor site: Residual tumor most prominent along the greater curvature. Tumor size: A distinct tumor mass is not identified grossly. 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 Histologic type: Diffuse type(signet ring carcinoma.) Histologic grade: G3, poorly differentiated. Tumor extension: Tumor invades mucosa, submucosa, muscularis propria and subserosal connective tissue, extending to the peritoneal surface.(pT4a.) Margins: Final anastomotic do not appear negative for carcinoma. Residual carcinoma is identified in en face sections of the proximal margin.(discohesive tumor cells in the submucosa.) Treatment effect: Evident tumor regression but with extensive residual carcinoma, (partial response, score 2-3. LV I: Identified. Additional findings: Extensive tumor infiltrates omental adipose tissue and is present on the peritoneal surface,(pM1). Regional lymph nodes: Number examined: 5. Number positive: 2. Ancillary studies: HER2 fish testing is negative. Pathologic stage: Following preop neoadjuvant therapy. Primary tumor:ypN1. Metastatic disease:ypM1. 3. Started on Taxol and Ramucirumab, cycle 2 day 15 today. Interval History Interval history: Sheryl Espinoza is a pleasant 65 year old lady here for a follow-up visit. She is here for cycle 3 day 15 of her chemotherapy. Overall, she has been tolerating the treatment well. However only problem is that it is hard for her to eat. She cannot have too much in 1 sitting. She tries to snack here in there. Her energy level is medium. She denies much in terms of pain. Occasionally she complains of an epigastric pain, that is fleeting. She cannot eat much due to the pain. Her symptoms would last over the next couple days after treatment in then they improve. She denies heartburn or indigestion. She has oxycodone however she tries to take it sparingly. Takes it once at night. That is only way she can sleep 4-5 hours. Tylenol is not that effective. She has lost a couple of lb. She is trying to optimize her diet. Since her stomach is not there she has to eat soft small meals frequently. She gets intermittent diarrhea, almost every other day. She goes a couple times in a day. No gross blood in the stools. Denies any chest pain or trouble with breathing. Her appetite is good it is just that she is unable to eat much at 1 sitting. She is in good spirits. Rest of the review of systems is unremarkable. She does try to work out for 20 minutes every day. Recent history: She had surgery done. She initially had an endoscopic ultrasound by Dr. Blanco, in November. There were no lesions seen. The random biopsies of the stomach lining were negative. She then underwent surgery on 12/[address] Rajan. 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 Tumor site: Residual tumor most prominent along the greater curvature. Tumor size: A distinct tumor mass is not identified grossly. 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 Histologic type: Diffuse type(signet ring carcinoma.) Histologic grade: G3, poorly differentiated. Tumor extension: Tumor invades mucosa, submucosa, muscularis propria and subserosal connective tissue, extending to the peritoneal surface.(pT4a.) Margins: Final anastomotic do not appear negative for carcinoma. Residual carcinoma is identified in en face sections of the proximal margin.(discohesive tumor cells in the submucosa.) Treatment effect: Evident tumor regression but with extensive residual carcinoma, (partial response, score 2-3. LV I: Identified. Additional findings: Extensive tumor infiltrates omental adipose tissue and is present on the peritoneal surface,(pM1). Regional lymph nodes: Number examined: 5. Number positive: 2. Ancillary studies: HER2 fish testing is negative. Pathologic stage: Following preop neoadjuvant therapy. Primary tumor:ypN1. Metastatic disease:ypM1. Previous history: She was admitted to the hospital back towards the end of February,, with symptoms of acute diverticulitis and UTI. She had presented with 3 days history of left flank pain and dysuria. Abdominal pain was accompanied by decreased appetite nausea and 1 episode of vomiting on 02/27. CT scan of the abdomen revealed: 1.Short segment mural thickening and pericolonic infiltrative changes in the proximal descending colon most consistent with acute diverticulitis or short segment colitis. 2. Mild left pelvo- caliectasis, without obstructing abnormality could be secondary to left ureteropelvic junction stenosis. Left renal cyst demonstrated benign features. Nonobstructing right upper pole intrarenal calculus. 3. mild free fluid in the pelvis is presumed secondary to colonic findings. 4. Very small hiatus hernia. Patient was started on IV antibiotics and admitted. In addition she was noted to have a urinary tract infection. Blood cultures showed Gram-negative rods, likely bacteremia from the UTI. She did note improvement from abdominal pain from 10/10 to 4/10 the following day. She also complained of heartburn and odynophagia of for a few days. She was seen by GI. Recommendation was to continue IV antibiotics until abdominal pain improves. Start oral omeprazole for heartburn and odynophagia. To be scheduled for an upper endoscopy and colonoscopy, in 5-6 weeks time, after resolution of the diverticulitis. This was done on 04/24. Pathology revealed: Stomach body biopsy: Poorly differentiated carcinoma. Morphology and immunophenotype are not 100% specific but raise the possibility of metastatic lobular carcinoma of the breast. Other primary sources include gastric and other upper GI locations. ROS: She denies easy fatigability. Her appetite is good. She has lost some weight. One hundred fifty down to 135 lb. Denies headache no dizziness. No chest pain or trouble breathing. No cough nor shortness of breath no chest pain. She had some dyspepsia type symptoms when she was in house. The omeprazole has taken care of these. Occasional cramping prior to bowel movement. Denies diarrhea. Denies gross blood in the stools. She never had a previous colonoscopy. She had recent UTI symptoms. These have resolved. She has arthritis involving her knees. Denies any focal weakness. No depression/anxiety. Family history: Dad had pancreatic cancer at the age of 67. Mom had non-Hodgkin's lymphoma. 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 She has 3 children. She smoked as a teenager. She rarely drinks. Review of Systems - Constitutional Reports no additional constitutional complaints - Eyes Reports no additional eye complaints - ENT Reports no additional ear, nose, mouth, and throat complaints - Cardiovascular Reports no additional cardiovascular complaints - Respiratory Reports no additional respiratory complaints - Gastrointestinal Reports no additional gastrointestinal complaints - Genitourinary Reports no additional female genitourinary complaints - Musculoskeletal Reports no additional musculoskeletal complaints - Integumentary/Breasts Skin/Breast: Reports no additional skin complaints - Neurologic Reports no additional neurologic complaints, Reports hearing normal, Reports weakness - Psychiatric Reports no additional psychiatric complaints - Endocrine Reports no additional endocrine complaints - Hematologic/Lymphatic Reports no additional hematologic/lymphatic complaints - Allergic/Immunologic Reports no additional allergic/immunologic complaints [facility] Medical History: Medical History (Last Reviewed 03/22/21 @ 16:05 by Los Martínez RN) History of cellulitis Hx of diverticulitis of colon Hypercholesterolemia Lab test negative for COVID-19 virus Type 2 diabetes mellitus with hyperglycemia Functional capacity: independent ambulation Patient : No Family History: Family History (Last Reviewed 03/22/21 @ 16:08 by Los Martínez RN) Father Pancreatic cancer Mother NHL (non-Hodgkin's lymphoma) Maternal Grandfather Prostate cancer Maternal Grandmother Diabetes Heart disease Paternal Grandfather Diabetes Son Asthma Surgical History: Surgical History (Last Reviewed 03/22/21 @ 16:06 by Los Martínez RN) H/O tubal ligation History of esophagogastroduodenoscopy (EGD) History of gastrectomy Hx of appendectomy Hx of colonoscopy Hx of tonsillectomy S/P cholecystectomy Onset Date: ~1988 S/P right knee arthroscopy Onset Date: ~2002 Social History: Social History (Last Reviewed 03/22/21 @ 16:06 by Los Martínez RN) Living Situation History: Household Members: Spouse Household Members: Children Housing: House Are you a primary medicare insurance specialist to a significant other at home: No Do you presently have visiting nurse or other home services: No Tobacco History: Second Hand Smoke Exposure: No Occupation Assessmet: service: No Current occupational status: unemployed Current occupational status: previously employed 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 Performance Status ECOG Performance Status: 0 Home Medications and Allergies Current Medications: Current Medications Acetaminophen (Acetaminophen 325 Mg Tablet) 650 mg PO ONCE KHRIS Stop: 06/17/21 23:59 Last Admin: 06/17/21 09:53 Dose: 650 mg Documented by: Diphenhydramine HCl (Diphenhydramine Hcl 50 Mg/Ml Vial) 25 mg IVPUSH ONCE KHRIS Stop: 06/17/21 23:59 Last Admin: 06/17/21 09:54 Dose: 25 mg Documented by: Famotidine (Famotidine/Pf 20 Mg/2 Ml Vial) 20 mg IVPUSH ONCE KHRIS Stop: 06/17/21 23:59 Last Admin: 06/17/21 09:54 Dose: 20 mg Documented by: Heparin Sodium (Porcine) (Heparin Sodium,Porcine Flush 500 Unit/5 Ml Syringe) 500 unit IVFLUSH ONCE KHRIS Stop: 06/17/21 23:59 Last Admin: 06/17/21 13:24 Dose: 500 unit Documented by: Dexamethasone Sodium Phosphate (Decadron) 12 mg in 50 mls @ 200 mls/hr IV ONCE KHRIS Stop: 06/17/21 23:59 Last Infusion: 06/17/21 10:17 Dose: Infused Documented by: Paclitaxel 120 mg/ Sodium (Chloride) 270 mls @ 270 mls/hr IV ONCE KHRIS Stop: 06/17/21 23:59 Last Infusion: 06/17/21 13:16 Dose: Infused Documented by: Ramucirumab 410 mg/ Sodium (Chloride) 250 mls @ 250 mls/hr IV ONCE KHRIS Stop: 06/17/21 23:59 Last Infusion: 06/17/21 12:04 Dose: Infused Documented by: Ondansetron HCl (Ondansetron Odt 8 Mg Tab.Rapdis) 8 mg TRANSLINGU ONCE KHRIS Stop: 06/17/21 23:59 Last Admin: 06/17/21 09:53 Dose: 8 mg Documented by: Home Medications Medication Instructions Recorded Confirmed Type multivitamin 1 tab PO DAILY 05/11/20 06/10/21 History Allergies Allergy/AdvReac Type Severity Reaction Status Date / Time meperidine [From Demerol] Allergy Severe Swelling Verified 05/06/21 11:05 Exam Vital signs: Vital Signs Temp 97.7 F 06/17/21 08:52 Pulse 81 06/17/21 08:52 Resp 18 06/17/21 08:52 BP 161/58 H 06/17/21 08:52 Pulse Ox 99 06/17/21 08:52 Intake & Output 06/16/21 06/17/21 06/17/21 18:59 06:59 18:59 Intake Total 570 / 570 Balance 570 / 570 Intake: Intake, IV Amount 570 / 570 PACLitaxeL 120 mg In 0.9 % 270 / 270 Sodium Chloride 250 ml @ 270 mls/hr IV ONCE K[facility]IS Rx#: [id number] Ramucirumab 410 mg In 0.9 % 250 / 250 Sodium Chloride 209 ml @ 250 mls/hr IV ONCE KHRIS Rx#: [id number] dexAMETHasone sod phosphate/NS 50 / 50 12 mg In 50 ml @ 200 mls/hr IV ONCE KHRIS Rx#:[id number] Other: Weight 52.1 kg Weight in Grams 27698 Weight 52.1 kg BMI result Body Mass Index 19.7 - Constitutional Present: no acute distress - Routine HEENT Exam Head: Present: normal inspection Eye: Present: normal appearance ENT: Present: mucous membranes moist - Routine Neck Exam Present: full ROM - Routine Respiratory Exam Present: CTAB - Routine Cardiovascular Exam Cardiovascular: Present: RRR, S1, S2 - Routine Abdominal Exam Present: soft, nontender - Routine Rectal Exam Patient deferred: digital exam - Routine Extremities Exam Present: nontender - Routine Back/Spine/Pelvis Exam Back/Spine: Present: full ROM - Routine Skin Exam Present: intact - Routine Neurological Exam Present: alert, oriented X3, vision grossly intact - Detailed Neurological Exam: Coma Scale Eye Opening: Spontaneous (4) - Routine Psychiatric Exam Present: normal affect Data - Labs CBC & Chem 7: 06/17/21 09:00 06/17/21 09:00 Assessment and Plan Patient Active problem list reviewed?: Yes (1) Gastric cancer Status: Inactive (2) Gastric cancer Problem details: Gastrectomy, omentectomy, esophagojejunostomy, Melyssa-en-Y for gastric cancer Status: Acute Assessment and plan: This is a pleasant 64-year-old lady with a history of diabetes and diverticulosis. She had epigastric pain, off and on for a few months. She tells me she had GERD symptoms however she stopped eating sweets and those resolved. This was about 13 years ago. She was started on omeprazole recently which has been helping. Back in February she was admitted with a bout of diverticulitis. CT scan of the abdomen revealed: 1. Short segment mural thickening and pericolonic infiltrative changes in the proximal descending colon most consistent with acute diverticulitis or short segment colitis as a definitive diverticulum is not seen. 2. Mild left pelvocaliectasis without obstructing abnormality could be secondary to left ureteropelvic junction stenosis. Left renal cysts demonstrate benign features. Nonobstructing right upper pole intrarenal calculus. 3. Mild free fluid in the pelvis is presumed secondary to the colonic findings. 4. Very small hiatal hernia. Subsequently an upper endoscopy and colonoscopy was arranged. This was done on 04/[address] Fields. Colonoscopy was negative however upper endoscopy revealed: Poorly differentiated carcinoma, in the stomach. Possibility of metastatic lobular carcinoma of the breast was raised. Her breast exam was normal however, she tells me she has not had a mammogram in about 20 years. As per NCCN guidelines workup for gastric carcinoma that is recommended includes: 1. PET scan. 2. Endoscopic ultrasound to determine if disease is early versus locally advanced stage. [facility]: No mammographic evidence of malignancy. I checked baseline labs, including the tumor markers: CEA 5.1, Ca 27.29 103. l proceeded with a PET scan for staging. This revealed: No foci of abnormal FDG activity are visualized. There are no abnormalities visualized suspicious for metastatic or other malignant lesions. l requested endoscopic ultrasound for exact pathological staging. This was scheduled at [facility], by Dr. Blanco. The area of abnormality was very subtle. He took several biopsies. Unfortunately they came back positive. She has seen Dr. Rajan, to consider surgery by minimally invasive method. It was decided to proceed with FLOT chemotherapy in the neoadjuvant setting. She was started on it a few months ago. She has tolerated it reasonably well. She had a CT scan of the chest abdomen pelvis on 10/19 which revealed: remarkable CT chest with no pulmonary nodule or mass. Right central venous port tip is in the distal SVC. Moderate sized hiatal hernia. There is a large stool in the colon suggestive of severe constipation. No abnormal sized abdominal lymph nodes seen. Distended urinary bladder. She underwent endoscopic ultrasound since imaging was not very helpful. This was done on November [address] Blanco. There were no lesions seen. The random biopsies of the stomach lining were negative. She then underwent surgery on 12/[address] Rajan. 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 Tumor site: Residual tumor most prominent along the greater curvature. Tumor size: A distinct tumor mass is not identified grossly. 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 Histologic type: Diffuse type(signet ring carcinoma.) Histologic grade: G3, poorly differentiated. Tumor extension: Tumor invades mucosa, submucosa, muscularis propria and subserosal connective tissue, extending to the peritoneal surface.(pT4a.) Margins: Final anastomotic do not appear negative for carcinoma. Residual carcinoma is identified in en face sections of the proximal margin.(discohesive tumor cells in the submucosa.) Treatment effect: Evident tumor regression but with extensive residual carcinoma, (partial response, score 2-3. LV I: Identified. Additional findings: Extensive tumor infiltrates omental adipose tissue and is present on the peritoneal surface,(pM1). Regional lymph nodes: Number examined: 5. Number positive: 2. Ancillary studies: HER2 fish testing is negative. Pathologic stage: Following preop neoadjuvant therapy. Primary tumor:ypN1. Metastatic disease:ypM1. She has recuperated from the surgery. Gradually advanced her diet. CEA level: 5.60, previously, 5.8, 4.40, prior to that. I discussed further treatment options with her. The plan was made to proceed with palliative chemotherapy, in the second-line setting, as delineated in the [place] trial. According to NCCN guidelines preferred regimen include: Paclitaxel 80 mg, on days 1, 8 and 15 + Ramucirumab 8 mg/kg, week 1 and 15 Q 28 days. l tried to see if I can substitute Abraxane for the paclitaxel. However unfortunately Abraxane was not available, [facility], [facility]. Overall she is tolerating the treatment reasonably well. She is here for cycle 3 day 15. She has a couple of weeks off after this. Will then be starting on cycle 4. PLAN: She will receive Neulasta Onpro, for chemotherapy-induced neutropenia. The plan is to proceed with upper endoscopy to gauge her response. This has been scheduled for the coming Monday by GI. Hopefully she will have a good response and will continue on the current regimen. In the meantime she will continue to focus on nutrition and gaining her strength back. Thank you, CC: Dr. Clark. Dr. Fields. Dr. De Leon. Dr. Rajan - Time Spent With Patient Time Spent with Patient (in minutes): 30
--- NOTE | 2021-06-22 10:58 | MHC.HEMONC ---
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
[2021-07-01 09:18] VITALS: BP 151/77; PULSE 76; RESP 20; TEMP 35.9; O2SAT 100
[2021-07-01 09:39] LABS: MANUAL DIFF FLAG NO
[2021-07-01 09:41] LABS: Appearance Urine HAZY; Color Urine YELLOW; Glucose Urine UA NEG (NEG); Leukocyte Esterase Urine TRACE (NEG); Nitrite Urine NEG (NEG); Specific Gravity - Urine 1.025 (1.005-1.025); Urine Blood NEG (NEG); Urine Ketones NEG (NEG); Urine Protein NEG (NEG-TRACE)
[2021-07-01 09:47] LABS: Basophils Percent Auto 0.3 % (0-2); Eosinophils Percent Auto 0.3 % (0-4); Hematocrit 30.8 % (37.0-47.0); Hemoglobin 9.9 g/dl (12.0-16.0); Imm Gran Abs Auto 0.19 X10*3/uL (0.00-0.03); Imm Gran Pct Auto 1.7 % (0.0-0.4); Lymphocytes Absolute Auto 1.4 X10*3/uL (1.2-4.9); Lymphocytes Percent Auto 12.3 % (20-40); Mean Corpuscular HGB Conc 32.1 g/dl (31.0-35.0); Mean Corpuscular Hemoglobin 32.5 pg (27.0-33.0); Mean Platelet Volume 11.1 fL (9.4-12.3); Monocytes Absolute Auto 0.5 X10*3/uL (0.1-1.2); Monocytes Percent Auto 4.1 % (2-11); NRBC Pct Auto 0.2 /100WBC (0.0-0.2); Neutrophils Percent Auto 81.3 % (45-73); Platelet Count 123 X10*3/uL (160-400); Red Blood Count 3.05 X10*6/uL (4.20-5.50); Red Cell Distribution Width 15.7 % (11.0-16.0); White Blood Count 11.1 X10*3/uL (4.8-10.8)
[2021-07-01 09:51] LABS: Bacteria Urine 2+ /LPF; RBC Urine 0 /HPF (0); Squamous Epithelial Cell Urine TRACE /LPF
[2021-07-01 09:54] LABS: Alanine Aminotransferase 16 U/L (0-31); Albumin Level 3.6 g/dL (3.5-5.0); Alkaline Phosphatase 156 U/L (39-117); Anion Gap 11 (12-20); Aspartate Amino Transferase 25 U/L (5-31); Bilirubin Direct < 0.2 mg/dL (0.0-0.5); Bilirubin Total 0.4 mg/dL (0.0-1.0); Blood Urea Nitrogen 9 mg/dL (9-16); Calcium 8.8 mg/dL (8.4-10.2); Carbon Dioxide 28 mmol/L (22-29); Chloride 104 mmol/L (96-108); Creatinine Clr Calc Pharmacy 85.3; Estimated Glomerular Filt Rate > 60; Glucose Random 71 mg/dL (60-115); Sodium 139 mmol/L (135-145); Total Protein 5.7 g/dL (6.5-8.0)
[2021-07-01] MEDS: Famotidine/PF 20 MG/2 ML VIAL IVPUSH (10:10)
[2021-07-01] MEDS: diphenhydrAMINE HCL 50 MG/ML VIAL 25 MG IVPUSH (10:10)
[2021-07-01] MEDS: Acetaminophen 325 MG TABLET 650 MG PO (10:11)
[2021-07-01] MEDS: dexAMETHasone sod phosphate/NS 12 MG/50 ML PIGGYBACK 200 MG IV (10:42)
[2021-07-01] MEDS: Heparin Sodium,Porcine Flush 500 UNIT/5 ML SYRINGE IVFLUSH (14:21)
[2021-07-01] MEDS: Pegfilgrastim Onpro 6 MG/0.6 ML SYR.W..INJ SUBCUT (14:29)
--- NOTE | 2021-07-01 15:08 | MHC.HEMONC ---
Here for C4 D1 Ramucirumab/Paclitaxel. Port accessed with good blood return noted. Lab draw done, results reviewed. Pt feeling good, states tolerated last treatment well. Premeds given as ordered. Pt had breakfast, then had some vomiting and pain. She states she ate too much, and that happens when she eats too much. Pt did feel better after vomiting, and some burping. Treatment done and tolerated well. Scheduled for next treatment in 1 week.
--- NOTE | 2021-07-06 09:20 | HO.HEMONCPA ---
KELLIE FOR RAMUCIRUMAB ([id number]) APPROVED. AUTH#[id number]. DOS 06/30/2021 to 06/30/2022. DOCUMENT SCANNED IN THE CHART.
--- NOTE | 2021-07-06 09:39 | MHC.HEMONCSW ---
MET WITH PT WHO IS KNOWN TO ME FROM PREVIOUS ENCOUNTERS. REMAINS INDEPENDENT. REPORTS NO CONCERNS AT THIS TIME. DIAGNOSIS IS METASTATIC GASTRIC CANCER. S/P SURGERY. PRIMARY NUTRITION IS PLANT BASED ENSURE, COUPONS GIVEN. HER INSURANCE DOES NOT COVER THIS. IS HCP AND THIS WAS DONE PREVIOUSLY. DOES NOT WANT A COUNSELING REFERRAL...REPORTS EXCELLENT SUPPORTS FROM FAMILY, FRIENDS AND OUR STAFF. ALL QUESTIONS ANSWERED. SHE IS AWARE OF MY ROLE AND AVAILABILITY.
[2021-07-08 09:25] LABS: MANUAL DIFF FLAG NO
[2021-07-08 09:30] VITALS: BP 139/65; PULSE 84; RESP 20; TEMP 36.5; O2SAT 99; BMI 20.1
[2021-07-08 09:35] LABS: Basophils Absolute Auto 0.1 X10*3/uL (0.0-0.2); Basophils Percent Auto 0.3 % (0-2); Eosinophils Percent Auto 0.1 % (0-4); Hematocrit 29.3 % (37.0-47.0); Hemoglobin 9.4 g/dl (12.0-16.0); Imm Gran Abs Auto 0.16 X10*3/uL (0.00-0.03); Lymphocytes Absolute Auto 1.3 X10*3/uL (1.2-4.9); Lymphocytes Percent Auto 8.1 % (20-40); Mean Corpuscular HGB Conc 32.1 g/dl (31.0-35.0); Mean Corpuscular Hemoglobin 32.2 pg (27.0-33.0); Mean Corpuscular Volume 100.3 fL (80.0-98.0); Mean Platelet Volume 11.3 fL (9.4-12.3); Monocytes Absolute Auto 0.6 X10*3/uL (0.1-1.2); Monocytes Percent Auto 3.5 % (2-11); Neutrophils Absolute Auto 14.3 x10*3/uL (2.0-8.3); Platelet Count 123 X10*3/uL (160-400); Red Blood Count 2.92 X10*6/uL (4.20-5.50); Red Cell Distribution Width 15.4 % (11.0-16.0); White Blood Count 16.5 X10*3/uL (4.8-10.8)
[2021-07-08 10:08] LABS: Alanine Aminotransferase 13 U/L (0-31); Albumin Level 3.3 g/dL (3.5-5.0); Alkaline Phosphatase 203 U/L (39-117); Anion Gap 10 (12-20); Aspartate Amino Transferase 23 U/L (5-31); Bilirubin Direct < 0.2 mg/dL (0.0-0.5); Bilirubin Total 0.3 mg/dL (0.0-1.0); Blood Urea Nitrogen 5 mg/dL (9-16); Calcium 8.7 mg/dL (8.4-10.2); Carbon Dioxide 29 mmol/L (22-29); Chloride 106 mmol/L (96-108); Creatinine Clr Calc Pharmacy 84.2; Estimated Glomerular Filt Rate > 60; Glucose Random 109 mg/dL (60-115); Potassium 3.8 mmol/L (3.3-5.1); Sodium 141 mmol/L (135-145); Total Protein 5.2 g/dL (6.5-8.0)
[2021-07-08] MEDS: Famotidine/PF 20 MG/2 ML VIAL IVPUSH (10:22)
[2021-07-08] MEDS: diphenhydrAMINE HCL 50 MG/ML VIAL 25 MG IVPUSH (10:22)
[2021-07-08] MEDS: Acetaminophen 325 MG TABLET 650 MG PO (10:22)
[2021-07-08] MEDS: dexAMETHasone sod phosphate/NS 12 MG/50 ML PIGGYBACK 200 MG IV (10:50)
[2021-07-08] MEDS: Heparin Sodium,Porcine Flush 500 UNIT/5 ML SYRINGE IVFLUSH (12:43)
--- NOTE | 2021-07-08 15:23 | MHC.HEMONC ---
Here for C4 D8 Paclitaxel. Port accessed with good blood return noted. Lab draw done and results reviewed. Pt states she did well after last treatment. Her only c/o is that she has some blood from her nose every morning. She states it doesn't continue, it is just in the morning and only a little. Otherwise she feels well. Premeds given as ordered. Treatment done and tolerated well. Port flushed with heparin flush, and de-accessed. Neulasta onpro placed and pt discharged home. Neulasta was ordered, but not due until next week, on D15. Pt called and told to remove onpro, and pt states understanding, and will remove. Pt scheduled to return in 1 week for next treatment.
--- NOTE | 2021-07-14 16:38 | MHC.HEMONCSW ---
PREVIOUSLY PY [facility] IS SCANNED INTO SYSTEM.
[2021-07-15 08:47] VITALS: BP 151/78; PULSE 74; RESP 20; TEMP 36.4; O2SAT 98; BMI 19.9
[2021-07-15 09:21] LABS: MANUAL DIFF FLAG NO
[2021-07-15 09:31] LABS: Appearance Urine HAZY; Color Urine YELLOW; Glucose Urine UA NEG (NEG); Leukocyte Esterase Urine NEG (NEG); Nitrite Urine POS (NEG); PH 7.5 (5.0-8.0); Urine Blood NEG (NEG); Urine Ketones NEG (NEG); Urine Protein NEG (NEG-TRACE)
[2021-07-15 09:34] LABS: Basophils Percent Auto 0.3 % (0-2); Eosinophils Percent Auto 0.2 % (0-4); Hematocrit 27.6 % (37.0-47.0); Hemoglobin 8.8 g/dl (12.0-16.0); Imm Gran Abs Auto 0.04 X10*3/uL (0.00-0.03); Imm Gran Pct Auto 0.6 % (0.0-0.4); Lymphocytes Absolute Auto 0.7 X10*3/uL (1.2-4.9); Lymphocytes Percent Auto 10.8 % (20-40); Mean Corpuscular HGB Conc 31.9 g/dl (31.0-35.0); Mean Corpuscular Hemoglobin 32.5 pg (27.0-33.0); Mean Corpuscular Volume 101.8 fL (80.0-98.0); Mean Platelet Volume 11.6 fL (9.4-12.3); Monocytes Absolute Auto 0.1 X10*3/uL (0.1-1.2); Monocytes Percent Auto 2.2 % (2-11); Neutrophils Absolute Auto 5.4 x10*3/uL (2.0-8.3); Neutrophils Percent Auto 85.9 % (45-73); Platelet Count 119 X10*3/uL (160-400); Red Blood Count 2.71 X10*6/uL (4.20-5.50); White Blood Count 6.3 X10*3/uL (4.8-10.8)
[2021-07-15 09:39] LABS: RBC Urine 0 /HPF (0)
[2021-07-15 09:40] LABS: Bacteria Urine 2+ /LPF; Squamous Epithelial Cell Urine TRACE /LPF
[2021-07-15 09:56] LABS: Alanine Aminotransferase 25 U/L (0-31); Albumin Level 3.3 g/dL (3.5-5.0); Alkaline Phosphatase 147 U/L (39-117); Anion Gap 9 (12-20); Aspartate Amino Transferase 47 U/L (5-31); Bilirubin Direct < 0.2 mg/dL (0.0-0.5); Bilirubin Total 0.3 mg/dL (0.0-1.0); Blood Urea Nitrogen 7 mg/dL (9-16); Calcium 8.5 mg/dL (8.4-10.2); Carbon Dioxide 27 mmol/L (22-29); Chloride 107 mmol/L (96-108); Creatinine Clr Calc Pharmacy 93.1; Estimated Glomerular Filt Rate > 60; Glucose Random 90 mg/dL (60-115); Sodium 139 mmol/L (135-145); Total Protein 5.4 g/dL (6.5-8.0)
[2021-07-15] MEDS: diphenhydrAMINE HCL 50 MG/ML VIAL 25 MG IVPUSH (10:13)
[2021-07-15] MEDS: Acetaminophen 325 MG TABLET 650 MG PO (10:13)
[2021-07-15] MEDS: Famotidine/PF 20 MG/2 ML VIAL IVPUSH (10:20)
[2021-07-15] MEDS: dexAMETHasone sod phosphate/NS 12 MG/50 ML PIGGYBACK 200 MG IV (10:38)
--- NOTE | 2021-07-15 14:01 | PM.HEMONCPN ---
Medical Summary - Medical Summary Date of Service: 07/15/21 Chief complaint: Follow-up for: Gastric carcinoma. Medical Summary: DIAGNOSIS: GASTRIC CARCINOMA. CURRENT THERAPY: 1. FLOT CHEMOTHERAPY, completed 4 cycles, day 15. 2. She then underwent surgery on 12/[address] Rajan. 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 Tumor site: Residual tumor most prominent along the greater curvature. Tumor size: A distinct tumor mass is not identified grossly. 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 Histologic type: Diffuse type(signet ring carcinoma.) Histologic grade: G3, poorly differentiated. Tumor extension: Tumor invades mucosa, submucosa, muscularis propria and subserosal connective tissue, extending to the peritoneal surface.(pT4a.) Margins: Final anastomotic do not appear negative for carcinoma. Residual carcinoma is identified in en face sections of the proximal margin.(discohesive tumor cells in the submucosa.) Treatment effect: Evident tumor regression but with extensive residual carcinoma, (partial response, score 2-3. LV I: Identified. Additional findings: Extensive tumor infiltrates omental adipose tissue and is present on the peritoneal surface,(pM1). Regional lymph nodes: Number examined: 5. Number positive: 2. Ancillary studies: HER2 fish testing is negative. Pathologic stage: Following preop neoadjuvant therapy. Primary tumor:ypN1. Metastatic disease:ypM1. 3. Started on Taxol and Ramucirumab, cycle 4 day 15 today. Interval History Interval history: Sheryl Espinoza is a pleasant 65 year old lady here for a follow-up visit. She is here for cycle 4 day 15 of her chemotherapy. Overall, she has been tolerating the treatment well. She tells me that she was constipated last week. This week she has had some loose bowels. She does take Imodium as needed. Lately she has been more tired than previously. It is difficult for her to eat, especially at 1 sitting. She tries to snack here in there. She denies much in terms of pain. Sometimes, she complains of an epigastric pain, that is fleeting. She denies heartburn or indigestion. She has oxycodone however she tries to take it sparingly. Takes it once at night. That is only way she can sleep 4-5 hours. Tylenol is not that effective. She has lost a few lbs. Since her stomach is not there she has to eat soft small meals frequently. She gets intermittent diarrhea, almost every other day. She goes a couple times in a day. No gross blood in the stools. Denies any chest pain or trouble with breathing. She is in good spirits. Rest of the review of systems is unremarkable. She does try to work out for 20 minutes every day. Recent history: She had surgery done. She initially had an endoscopic ultrasound by Dr. Blanco, in November. There were no lesions seen. The random biopsies of the stomach lining were negative. She then underwent surgery on 12/[address] Rajan. 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 Tumor site: Residual tumor most prominent along the greater curvature. Tumor size: A distinct tumor mass is not identified grossly. 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 Histologic type: Diffuse type(signet ring carcinoma.) Histologic grade: G3, poorly differentiated. Tumor extension: Tumor invades mucosa, submucosa, muscularis propria and subserosal connective tissue, extending to the peritoneal surface.(pT4a.) Margins: Final anastomotic do not appear negative for carcinoma. Residual carcinoma is identified in en face sections of the proximal margin.(discohesive tumor cells in the submucosa.) Treatment effect: Evident tumor regression but with extensive residual carcinoma, (partial response, score 2-3. LV I: Identified. Additional findings: Extensive tumor infiltrates omental adipose tissue and is present on the peritoneal surface,(pM1). Regional lymph nodes: Number examined: 5. Number positive: 2. Ancillary studies: HER2 fish testing is negative. Pathologic stage: Following preop neoadjuvant therapy. Primary tumor:ypN1. Metastatic disease:ypM1. Previous history: She was admitted to the hospital back towards the end of February,, with symptoms of acute diverticulitis and UTI. She had presented with 3 days history of left flank pain and dysuria. Abdominal pain was accompanied by decreased appetite nausea and 1 episode of vomiting on 02/27. CT scan of the abdomen revealed: 1.Short segment mural thickening and pericolonic infiltrative changes in the proximal descending colon most consistent with acute diverticulitis or short segment colitis. 2. Mild left pelvo- caliectasis, without obstructing abnormality could be secondary to left ureteropelvic junction stenosis. Left renal cyst demonstrated benign features. Nonobstructing right upper pole intrarenal calculus. 3. mild free fluid in the pelvis is presumed secondary to colonic findings. 4. Very small hiatus hernia. Patient was started on IV antibiotics and admitted. In addition she was noted to have a urinary tract infection. Blood cultures showed Gram-negative rods, likely bacteremia from the UTI. She did note improvement from abdominal pain from 02/14 to 4/10 the following day. She also complained of heartburn and odynophagia of for a few days. She was seen by GI. Recommendation was to continue IV antibiotics until abdominal pain improves. Start oral omeprazole for heartburn and odynophagia. To be scheduled for an upper endoscopy and colonoscopy, in 5-6 weeks time, after resolution of the diverticulitis. This was done on 04/24. Pathology revealed: Stomach body biopsy: Poorly differentiated carcinoma. Morphology and immunophenotype are not 100% specific but raise the possibility of metastatic lobular carcinoma of the breast. Other primary sources include gastric and other upper GI locations. ROS: She denies easy fatigability. Her appetite is good. She has lost some weight. One hundred fifty down to 135 lb. Denies headache no dizziness. No chest pain or trouble breathing. No cough nor shortness of breath no chest pain. She had some dyspepsia type symptoms when she was in house. The omeprazole has taken care of these. Occasional cramping prior to bowel movement. Denies diarrhea. Denies gross blood in the stools. She never had a previous colonoscopy. She had recent UTI symptoms. These have resolved. She has arthritis involving her knees. Denies any focal weakness. No depression/anxiety. Family history: Dad had pancreatic cancer at the age of 67. Mom had non-Hodgkin's lymphoma. 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 She has 3 children. She smoked as a teenager. She rarely drinks. Review of Systems - Constitutional Reports system reviewed and no additional complaints, except as documented, Reports anorexia, Reports weakness, Reports weight loss - Eyes Reports system reviewed and no additional complaints, except as documented - ENT Reports system reviewed and no additional complaints, except as documented - Cardiovascular Reports system reviewed and no additional complaints, except as documented - Respiratory Reports no additional respiratory complaints - Gastrointestinal Reports system reviewed and no additional complaints, except as documented - Genitourinary Reports no additional female genitourinary complaints - Musculoskeletal Reports system reviewed and no additional complaints, except as documented - Integumentary/Breasts Skin/Breast: Reports no additional skin complaints - Neurologic Reports system reviewed and no additional complaints, except as documented, Reports hearing normal, Reports weakness - Psychiatric Reports system reviewed and no additional complaints, except as documented - Endocrine Reports no additional endocrine complaints - Hematologic/Lymphatic Reports system reviewed and no additional complaints, except as documented - Allergic/Immunologic Reports system reviewed and no additional complaints, except as documented [facility] Medical History: Medical History (Last Reviewed 03/22/21 @ 16:05 by Los Martínez RN) History of cellulitis Hx of diverticulitis of colon Hypercholesterolemia Lab test negative for COVID-19 virus Type 2 diabetes mellitus with hyperglycemia Functional capacity: independent ambulation Patient : No Family History: Family History (Last Reviewed 03/22/21 @ 16:08 by Los Martínez RN) Father Pancreatic cancer Mother NHL (non-Hodgkin's lymphoma) Maternal Grandfather Prostate cancer Maternal Grandmother Diabetes Heart disease Paternal Grandfather Diabetes Son Asthma Surgical History: Surgical History (Last Reviewed 03/22/21 @ 16:06 by Los Martínez RN) H/O tubal ligation History of esophagogastroduodenoscopy (EGD) History of gastrectomy Hx of appendectomy Hx of colonoscopy Hx of tonsillectomy S/P cholecystectomy Onset Date: ~1988 S/P right knee arthroscopy Onset Date: ~2002 Social History: Social History (Last Reviewed 03/22/21 @ 16:06 by Los Martínez RN) Living Situation History: Household Members: Spouse Household Members: Children Housing: House Are you a primary child caregiver to a significant other at home: No Do you presently have visiting nurse or other home services: No Alcohol History Details: Currently Displaying Signs/Symptoms of Alcohol Withdrawal: No Tobacco History: Patient Tobacco Use Status: Never used Tobacco Second Hand Smoke Exposure: No Substance Use History: Use of substances other than those prescribed or required for medical reasons: No Domestic Abuse History: Have you been hit, kicked, punched, or otherwise hurt by someone within the past year? 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 Performance Status ECOG Performance Status: 0 Home Medications and Allergies Current Medications: Current Medications Acetaminophen (Acetaminophen 325 Mg Tablet) 650 mg PO ONCE KHRIS Stop: 07/15/21 23:59 Last Admin: 07/15/21 10:13 Dose: 650 mg Documented by: Diphenhydramine HCl (Diphenhydramine Hcl 50 Mg/Ml Vial) 25 mg IVPUSH ONCE KHRIS Stop: 07/15/21 23:59 Last Admin: 07/15/21 10:13 Dose: 25 mg Documented by: Famotidine (Famotidine/Pf 20 Mg/2 Ml Vial) 20 mg IVPUSH ONCE KHRIS Stop: 07/15/21 23:59 Last Admin: 07/15/21 10:20 Dose: 20 mg Documented by: Heparin Sodium (Porcine) (Heparin Sodium,Porcine Flush 500 Unit/5 Ml Syringe) 500 unit IVFLUSH ONCE KHRIS Stop: 07/15/21 23:59 Dexamethasone Sodium Phosphate (Decadron) 12 mg in 50 mls @ 200 mls/hr IV ONCE KHRIS Stop: 07/15/21 23:59 Last Infusion: 07/15/21 10:53 Dose: Infused Documented by: Ondansetron HCl (Zofran) 16 mg in 50 mls @ 200 mls/hr IV ONCE KHRIS Stop: 07/15/21 23:59 Last Infusion: 07/15/21 10:34 Dose: Infused Documented by: Paclitaxel 120 mg/ Sodium (Chloride) 270 mls @ 270 mls/hr IV ONCE KHRIS Stop: 07/15/21 23:59 Last Admin: 07/15/21 13:23 Dose: 270 mls/hr Documented by: Ramucirumab 420 mg/ Sodium (Chloride) 250 mls @ 250 mls/hr IV ONCE KHRIS Stop: 07/15/21 23:59 Last Infusion: 07/15/21 13:08 Dose: Infused Documented by: Home Medications Medication Instructions Recorded Confirmed Type multivitamin 1 tab PO DAILY 05/11/20 06/10/21 History Allergies Allergy/AdvReac Type Severity Reaction Status Date / Time meperidine [From Demerol] Allergy Severe Swelling Verified 05/06/21 11:05 Exam Vital signs: Vital Signs Temp 97.5 F 07/15/21 08:47 Pulse 74 07/15/21 08:47 Resp 20 07/15/21 08:47 BP 151/78 H 07/15/21 08:47 Pulse Ox 98 07/15/21 08:47 Intake & Output 07/14/21 07/15/21 07/15/21 18:59 06:59 18:59 Intake Total 350 / 350 Balance 350 / 350 Intake: Intake, IV Amount 350 / 350 Ondansetron HCL/NS 16 mg In 50 50 / 50 ml @ 200 mls/hr IV ONCE [facility] Rx# :[id number] Ramucirumab 420 mg In 0.9 % 250 / 250 Sodium Chloride 208 ml @ 250 mls/hr IV ONCE [facility] Rx#: [id number] dexAMETHasone sod phosphate/NS 50 / 50 12 mg In 50 ml @ 200 mls/hr IV ONCE [facility] Rx#:[id number] Other: Weight 52.6 kg Weight in Grams 05236 Weight 52.6 kg BMI result Body Mass Index 19.9 - Constitutional Present: no acute distress - Routine HEENT Exam Head: Present: normal inspection Eye: Present: normal appearance ENT: Present: mucous membranes moist - Routine Neck Exam Present: full ROM - Routine Respiratory Exam Present: CTAB - Routine Cardiovascular Exam Cardiovascular: Present: RRR, S1, S2 - Routine Abdominal Exam Present: soft, nontender - Routine Rectal Exam Patient deferred: digital exam - Routine Extremities Exam Present: nontender - Routine Back/Spine/Pelvis Exam Back/Spine: Present: full ROM - Routine Skin Exam Present: intact - Routine Neurological Exam Present: alert, oriented X3, vision grossly intact - Detailed Neurological Exam: Coma Scale Eye Opening: Spontaneous (4) - Routine Psychiatric Exam Present: normal affect Data - Labs CBC & Chem 7: 07/15/21 09:05 07/15/21 09:05 Assessment and Plan Patient Active problem list reviewed?: Yes (1) Gastric cancer Status: Inactive (2) Gastric cancer Problem details: Gastrectomy, omentectomy, esophagojejunostomy, Melyssa-en-Y for gastric cancer Status: Acute Assessment and plan: This is a pleasant 64-year-old lady with a history of diabetes and diverticulosis. She had epigastric pain, off and on for a few months. She tells me she had GERD symptoms however she stopped eating sweets and those resolved. This was about 13 years ago. She was started on omeprazole recently which has been helping. Back in February she was admitted with a bout of diverticulitis. CT scan of the abdomen revealed: 1. Short segment mural thickening and pericolonic infiltrative changes in the proximal descending colon most consistent with acute diverticulitis or short segment colitis as a definitive diverticulum is not seen. 2. Mild left pelvocaliectasis without obstructing abnormality could be secondary to left ureteropelvic junction stenosis. Left renal cysts demonstrate benign features. Nonobstructing right upper pole intrarenal calculus. 3. Mild free fluid in the pelvis is presumed secondary to the colonic findings. 4. Very small hiatal hernia. Subsequently an upper endoscopy and colonoscopy was arranged. This was done on 04/[address] Fields. Colonoscopy was negative however upper endoscopy revealed: Poorly differentiated carcinoma, in the stomach. Possibility of metastatic lobular carcinoma of the breast was raised. Her breast exam was normal however, she tells me she has not had a mammogram in about 20 years. As per NCCN guidelines workup for gastric carcinoma that is recommended includes: 1. PET scan. 2. Endoscopic ultrasound to determine if disease is early versus locally advanced stage. She was sent over to the [facility] to have a mammogram: No mammographic evidence of malignancy. I checked baseline labs, including the tumor markers: CEA 5.1, Ca 27.29 103. l proceeded with a PET scan for staging. This revealed: No foci of abnormal FDG activity are visualized. There are no abnormalities visualized suspicious for metastatic or other malignant lesions. l requested endoscopic ultrasound for exact pathological staging. This was scheduled at [facility], by Dr. Blanco. The area of abnormality was very subtle. He took several biopsies. Unfortunately they came back positive. She has seen Dr. Rajan, to consider surgery by minimally invasive method. It was decided to proceed with FLOT chemotherapy in the neoadjuvant setting. She was started on it a few months ago. She has tolerated it reasonably well. She had a CT scan of the chest abdomen pelvis on 10/19 which revealed: remarkable CT chest with no pulmonary nodule or mass. Right central venous port tip is in the distal SVC. Moderate sized hiatal hernia. There is a large stool in the colon suggestive of severe constipation. No abnormal sized abdominal lymph nodes seen. Distended urinary bladder. She underwent endoscopic ultrasound since imaging was not very helpful. This was done on November [address] Blanco. There were no lesions seen. The random biopsies of the stomach lining were negative. She then underwent surgery on 12/[address] Rajan. 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 Tumor site: Residual tumor most prominent along the greater curvature. Tumor size: A distinct tumor mass is not identified grossly. 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 Histologic type: Diffuse type(signet ring carcinoma.) Histologic grade: G3, poorly differentiated. Tumor extension: Tumor invades mucosa, submucosa, muscularis propria and subserosal connective tissue, extending to the peritoneal surface.(pT4a.) Margins: Final anastomotic do not appear negative for carcinoma. Residual carcinoma is identified in en face sections of the proximal margin.(discohesive tumor cells in the submucosa.) Treatment effect: Evident tumor regression but with extensive residual carcinoma, (partial response, score 2-3. LV I: Identified. Additional findings: Extensive tumor infiltrates omental adipose tissue and is present on the peritoneal surface,(pM1). Regional lymph nodes: Number examined: 5. Number positive: 2. Ancillary studies: HER2 fish testing is negative. Pathologic stage: Following preop neoadjuvant therapy. Primary tumor:ypN1. Metastatic disease:ypM1. She has recuperated from the surgery. Gradually advanced her diet. CEA level: 5.60, previously, 5.8, 4.40, prior to that. I discussed further treatment options with her. The plan was made to proceed with palliative chemotherapy, in the second-line setting, as delineated in the Molino trial. According to NCCN guidelines preferred regimen include: Paclitaxel 80 mg, on days 1, 8 and 15 + Ramucirumab 8 mg/kg, week 1 and 15 Q 28 days. l tried to see if I can substitute Abraxane for the paclitaxel. However unfortunately Abraxane was not available, then, from the linseed oil press tender. Overall she is tolerating the treatment reasonably well. She had a CT scan of the chest abdomen pelvis on 07/12: Question postsurgical change to the stomach and small esophageal hernia. No definite mass appreciated. No enlarged lymph nodes. Stool throughout the colon suggestive of constipation. Question mild wall thickening or colitis of the cecum. She had an upper endoscopy on 06/[address] Fields which revealed: Small bowel biopsy: Normal limits, negative for celiac disease. Anastomotic biopsy: Squamocolumnar mucosa with moderate chronic active inflammation. There was no evidence for residual carcinoma. This is encouraging. She is here for cycle 4 day 15. She has a couple of weeks off after this. PLAN: She has had some diarrhea. CT scan raised concern for cecal colitis. Will proceed with stool studies to look for any evidence of C diff or other types of colitis. She will receive Neulasta Onpro, today for chemotherapy-induced neutropenia. She will continue on the current regimen. She will have another 3 cycles and then be re-staged. In the meantime she will continue to focus on nutrition and gaining her strength back. Thank you, CC: Dr. Clark. Dr. Fields. Dr. De Leon. Dr. Rajan - Time Spent With Patient Time Spent with Patient (in minutes): 30
[2021-07-15] MEDS: Heparin Sodium,Porcine Flush 500 UNIT/5 ML SYRINGE IVFLUSH (14:37)
[2021-07-15] MEDS: Pegfilgrastim Onpro 6 MG/0.6 ML SYR.W..INJ SUBCUT (14:41)
--- NOTE | 2021-07-15 14:52 | MHC.HEMONC ---
Here for C4 D15 Ramucirumab/Paclitaxel. Port accessed with good blood return noted. Labs done and results reviewed. States is feeling well. Only c/o is that at times her tongue diego, especially at night. She also gets some abd pain if she eats too much. Premeds given as ordered. Treatment done and tolerated well. Neulasta onpro in place. Dr Cisneros in to see pt in follow up. Next cycle scheduled for 2 weeks.
[2021-07-29 09:09] VITALS: BP 148/66; PULSE 71; RESP 20; TEMP 36.6; O2SAT 99; BMI 20.1
[2021-07-29 09:40] LABS: MANUAL DIFF FLAG NO
[2021-07-29 09:45] LABS: Appearance Urine CLEAR; Color Urine YELLOW; Glucose Urine UA NEG (NEG); Leukocyte Esterase Urine NEG (NEG); Nitrite Urine NEG (NEG); Urine Blood NEG (NEG); Urine Ketones NEG (NEG); Urine Protein NEG (NEG-TRACE)
[2021-07-29 09:47] LABS: Basophils Percent Auto 0.1 % (0-2); Eosinophils Percent Auto 0.1 % (0-4); Hematocrit 30.6 % (37.0-47.0); Hemoglobin 9.7 g/dl (12.0-16.0); Imm Gran Abs Auto 0.18 X10*3/uL (0.00-0.03); Imm Gran Pct Auto 1.1 % (0.0-0.4); Mean Corpuscular HGB Conc 31.7 g/dl (31.0-35.0); Mean Corpuscular Hemoglobin 32.6 pg (27.0-33.0); Mean Corpuscular Volume 102.7 fL (80.0-98.0); Mean Platelet Volume 10.8 fL (9.4-12.3); Monocytes Absolute Auto 0.5 X10*3/uL (0.1-1.2); Monocytes Percent Auto 3.1 % (2-11); Neutrophils Absolute Auto 14.3 x10*3/uL (2.0-8.3); Neutrophils Percent Auto 89.6 % (45-73); Platelet Count 110 X10*3/uL (160-400); Red Blood Count 2.98 X10*6/uL (4.20-5.50); Red Cell Distribution Width 14.9 % (11.0-16.0); White Blood Count 15.9 X10*3/uL (4.8-10.8)
[2021-07-29 09:59] LABS: Alanine Aminotransferase 28 U/L (0-31); Albumin Level 3.4 g/dL (3.5-5.0); Alkaline Phosphatase 182 U/L (39-117); Anion Gap 11 (12-20); Aspartate Amino Transferase 49 U/L (5-31); Bilirubin Direct < 0.2 mg/dL (0.0-0.5); Bilirubin Total 0.3 mg/dL (0.0-1.0); Blood Urea Nitrogen 8 mg/dL (9-16); Calcium 8.5 mg/dL (8.4-10.2); Carbon Dioxide 27 mmol/L (22-29); Chloride 106 mmol/L (96-108); Creatinine Clr Calc Pharmacy 85.6; Estimated Glomerular Filt Rate > 60; Glucose Random 69 mg/dL (60-115); Potassium 3.8 mmol/L (3.3-5.1); Sodium 140 mmol/L (135-145); Total Protein 5.5 g/dL (6.5-8.0)
[2021-07-29] MEDS: Acetaminophen 325 MG TABLET 650 MG PO (10:28)
[2021-07-29] MEDS: Famotidine/PF 20 MG/2 ML VIAL IVPUSH (10:29)
[2021-07-29] MEDS: diphenhydrAMINE HCL 50 MG/ML VIAL 25 MG IVPUSH (10:29)
[2021-07-29] MEDS: dexAMETHasone sod phosphate/NS 12 MG/50 ML PIGGYBACK 200 MG IV (10:58)
[2021-07-29] MEDS: Heparin Sodium,Porcine Flush 500 UNIT/5 ML SYRINGE IVFLUSH (14:06)
--- NOTE | 2021-07-29 14:23 | MHC.HEMONC ---
Here for C5 D1 Ramucirumab/Paclitaxel. Port accessed with good blood return noted. Labs obtained and results reviewed. States tolerated last treatment well. Only c/o today is that last night, she woke up in the night feeling hot, and when she got up she felt dizzy. Again this AM she felt dizzy when she got up. Denies dizziness now. Dr Cisneros aware. Pt also denies any diarrhea since last treatment. Premeds given as ordered. Treatment done and tolerated well. Port flushed with heparin and de-accessed. Scheduled for next treatment in 1 week.
--- NOTE | 2021-07-30 16:28 | HO.HEMONCPA ---
KELLIE FOR [id number] Paclitaxel injection APRROVED. AUTH #[id number]. DOS 07/30/21 to 07/30/2022
[2021-08-05 08:42] VITALS: BP 149/80; PULSE 75; RESP 20; TEMP 36.7; O2SAT 100; BMI 19.6
[2021-08-05 09:06] LABS: MANUAL DIFF FLAG NO
[2021-08-05 09:23] LABS: Basophils Percent Auto 0.4 % (0-2); Eosinophils Percent Auto 0.2 % (0-4); Hematocrit 29.5 % (37.0-47.0); Hemoglobin 9.4 g/dl (12.0-16.0); Imm Gran Abs Auto 0.06 X10*3/uL (0.00-0.03); Imm Gran Pct Auto 1.2 % (0.0-0.4); Lymphocytes Absolute Auto 0.7 X10*3/uL (1.2-4.9); Lymphocytes Percent Auto 14.8 % (20-40); Mean Corpuscular HGB Conc 31.9 g/dl (31.0-35.0); Mean Corpuscular Hemoglobin 32.6 pg (27.0-33.0); Mean Corpuscular Volume 102.4 fL (80.0-98.0); Mean Platelet Volume 11.3 fL (9.4-12.3); Monocytes Absolute Auto 0.2 X10*3/uL (0.1-1.2); Monocytes Percent Auto 3.3 % (2-11); Neutrophils Absolute Auto 3.9 x10*3/uL (2.0-8.3); Neutrophils Percent Auto 80.1 % (45-73); Platelet Count 143 X10*3/uL (160-400); Red Blood Count 2.88 X10*6/uL (4.20-5.50); Red Cell Distribution Width 14.6 % (11.0-16.0); White Blood Count 4.9 X10*3/uL (4.8-10.8)
[2021-08-05 10:09] LABS: Alanine Aminotransferase 15 U/L (0-31); Albumin Level 3.5 g/dL (3.5-5.0); Alkaline Phosphatase 124 U/L (39-117); Anion Gap 10 (12-20); Aspartate Amino Transferase 22 U/L (5-31); Bilirubin Direct < 0.2 mg/dL (0.0-0.5); Bilirubin Total 0.3 mg/dL (0.0-1.0); Blood Urea Nitrogen 8 mg/dL (9-16); Calcium 8.8 mg/dL (8.4-10.2); Carbon Dioxide 28 mmol/L (22-29); Chloride 107 mmol/L (96-108); Creatinine Clr Calc Pharmacy 86.7; Estimated Glomerular Filt Rate > 60; Glucose Random 60 mg/dL (60-115); Potassium 3.9 mmol/L (3.3-5.1); Sodium 141 mmol/L (135-145); Total Protein 5.6 g/dL (6.5-8.0)
[2021-08-05] MEDS: oxyCODONE HCl Immed Release 5 MG TABLET PO (10:18)
[2021-08-05] MEDS: Acetaminophen 325 MG TABLET 650 MG PO (10:19)
[2021-08-05] MEDS: diphenhydrAMINE HCL 50 MG/ML VIAL 25 MG IVPUSH (10:20)
[2021-08-05] MEDS: Famotidine/PF 20 MG/2 ML VIAL IVPUSH (10:20)
[2021-08-05] MEDS: dexAMETHasone sod phosphate/NS 12 MG/50 ML PIGGYBACK 200 MG IV (10:56)
[2021-08-05] MEDS: Heparin Sodium,Porcine Flush 500 UNIT/5 ML SYRINGE IVFLUSH (12:46)
--- NOTE | 2021-08-05 14:05 | MHC.HEMONC ---
Here for C5 D8 Paclitaxel. Port accessed with good blood return noted. Labs obtained, results reviewed. States tolerated last treatment well. Has not had much of an appetite over the last 2 days. She also states she has been having some occasional hot flashes at night. Otherwise is feeling ok. Premeds given as ordered. After Sheryl ate a small amt of breakfast, she had pain 7/10 in her epigastric area. She states she gets this pain when she eats too fast or too much. Medicated with oxycodone 5 mg po with good effects. States she feels better with burping. She did have small amt of vomiting and felt much better. She said the pain went to 0/10 after vomiting. Treatment done and tolerated well. Port flushed with heparin and de-accessed. Scheduled to return in 1 week for next treatment.
--- NOTE | 2021-08-05 16:43 | HO.HEMONCPA ---
Addendum entered by Desiree Oliveira 03/22/23 10:14: auth 07/30/22 per scanned auth Addendum entered by Clementina Cage 08/05/21 16:47: [place] FOR [id number] PACLITAXEL APPROVED. AUTH #[id number]. DOS - 07/30/2021 to 07/30/2032 (999 TIMES) . PER [employer] REPAIR TECHNICIAN REF # KREE.R. ON 08/05/21 at 1:39pm PST. authorization wa approved under outpatient facility , which means that claims can be billed under buy &bill. [facility] -[phone] Original Note: [place] FOR [id number] PACLITAXEL APPROVED. AUTH #[id number]. DOS - 07/30/2021 to 07/30/2032 (999 TIMES) . PER [employer] REPAIR TECHNICIAN REF # KREE.R. ON 08/05/21 at 1:39pm PST. authorization wa approved under outpatient facility , which means that claims can be billed under buy &bill.
[2021-08-12 08:46] VITALS: BP 124/58; PULSE 73; RESP 20; TEMP 36.7; O2SAT 100; BMI 19.8
[2021-08-12 09:14] LABS: MANUAL DIFF FLAG NO
[2021-08-12 09:15] LABS: Appearance Urine HAZY; Basophils Percent Auto 0.4 % (0-2); Color Urine YELLOW; Eosinophils Percent Auto 0.2 % (0-4); Glucose Urine UA NEG (NEG); Hematocrit 27.8 % (37.0-47.0); Hemoglobin 8.7 g/dl (12.0-16.0); Imm Gran Abs Auto 0.06 X10*3/uL (0.00-0.03); Imm Gran Pct Auto 1.2 % (0.0-0.4); Leukocyte Esterase Urine TRACE (NEG); Lymphocytes Absolute Auto 1.2 X10*3/uL (1.2-4.9); Lymphocytes Percent Auto 23.8 % (20-40); Mean Corpuscular HGB Conc 31.3 g/dl (31.0-35.0); Mean Corpuscular Volume 102.2 fL (80.0-98.0); Mean Platelet Volume 10.3 fL (9.4-12.3); Monocytes Absolute Auto 0.3 X10*3/uL (0.1-1.2); Monocytes Percent Auto 4.9 % (2-11); Neutrophils Absolute Auto 3.5 x10*3/uL (2.0-8.3); Neutrophils Percent Auto 69.5 % (45-73); Nitrite Urine POS (NEG); Platelet Count 154 X10*3/uL (160-400); Red Blood Count 2.72 X10*6/uL (4.20-5.50); Red Cell Distribution Width 14.3 % (11.0-16.0); Urine Blood NEG (NEG); Urine Ketones NEG (NEG); Urine Protein NEG (NEG-TRACE); White Blood Count 5.1 X10*3/uL (4.8-10.8)
--- NOTE | 2021-08-12 09:21 | PM.HEMONCPN ---
Medical Summary - Medical Summary Date of Service: 08/12/21 Chief complaint: Follow-up for: Gastric carcinoma. Medical Summary: DIAGNOSIS: GASTRIC CARCINOMA. CURRENT THERAPY: 1. FLOT CHEMOTHERAPY, completed 4 cycles, day 15. 2. She then underwent surgery on 12/[address] Rajan. 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 Tumor site: Residual tumor most prominent along the greater curvature. Tumor size: A distinct tumor mass is not identified grossly. 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 Histologic type: Diffuse type(signet ring carcinoma.) Histologic grade: G3, poorly differentiated. Tumor extension: Tumor invades mucosa, submucosa, muscularis propria and subserosal connective tissue, extending to the peritoneal surface.(pT4a.) Margins: Final anastomotic do not appear negative for carcinoma. Residual carcinoma is identified in en face sections of the proximal margin.(discohesive tumor cells in the submucosa.) Treatment effect: Evident tumor regression but with extensive residual carcinoma, (partial response, score 2-3. LV I: Identified. Additional findings: Extensive tumor infiltrates omental adipose tissue and is present on the peritoneal surface,(pM1). Regional lymph nodes: Number examined: 5. Number positive: 2. Ancillary studies: HER2 fish testing is negative. Pathologic stage: Following preop neoadjuvant therapy. Primary tumor:ypN1. Metastatic disease:ypM1. 3. Started on Taxol and Ramucirumab, cycle 5 day 15 today. Interval History Interval history: Sheryl Espinoza is a pleasant 65 year old lady here for a follow-up visit. Lately she has been more tired than previously. She tells me that if she eats too much it hurts her in the upper chest area. It is difficult for her to eat, especially at 1 sitting. She tries to snack here in there. This has been going on since the surgery. She takes famotidine in the morning. She sometimes she gets epigastric pain for which she takes oxycodone. She uses it sparingly and so does not need a refill. Lately she has had some constipation. She is here for cycle 5 day 15 of her chemotherapy. Overall, she has been tolerating the treatment well. She tells me that she was constipated last week. She denies heartburn or indigestion. She has oxycodone which takes once at night. That is only way she can sleep 4-5 hours. Tylenol is not that effective. She has lost a few lbs. Denies any chest pain or trouble with breathing. She is in good spirits. Rest of the review of systems is unremarkable. She does try to work out for 20 minutes every day. Recent history: She had surgery done. She initially had an endoscopic ultrasound by Dr. Blanco, in November,. There were no lesions seen. The random biopsies of the stomach lining were negative. She then underwent surgery on 12/[address] Rajan. 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 Tumor site: Residual tumor most prominent along the greater curvature. Tumor size: A distinct tumor mass is not identified grossly. 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 Histologic type: Diffuse type(signet ring carcinoma.) Histologic grade: G3, poorly differentiated. Tumor extension: Tumor invades mucosa, submucosa, muscularis propria and subserosal connective tissue, extending to the peritoneal surface.(pT4a.) Margins: Final anastomotic do not appear negative for carcinoma. Residual carcinoma is identified in en face sections of the proximal margin.(discohesive tumor cells in the submucosa.) Treatment effect: Evident tumor regression but with extensive residual carcinoma, (partial response, score 2-3. LV I: Identified. Additional findings: Extensive tumor infiltrates omental adipose tissue and is present on the peritoneal surface,(pM1). Regional lymph nodes: Number examined: 5. Number positive: 2. Ancillary studies: HER2 fish testing is negative. Pathologic stage: Following preop neoadjuvant therapy. Primary tumor:ypN1. Metastatic disease:ypM1. Previous history: She was admitted to the hospital back towards the end of February,, with symptoms of acute diverticulitis and UTI. She had presented with 3 days history of left flank pain and dysuria. Abdominal pain was accompanied by decreased appetite nausea and 1 episode of vomiting on 02/27. CT scan of the abdomen revealed: 1.Short segment mural thickening and pericolonic infiltrative changes in the proximal descending colon most consistent with acute diverticulitis or short segment colitis. 2. Mild left pelvo- caliectasis, without obstructing abnormality could be secondary to left ureteropelvic junction stenosis. Left renal cyst demonstrated benign features. Nonobstructing right upper pole intrarenal calculus. 3. mild free fluid in the pelvis is presumed secondary to colonic findings. 4. Very small hiatus hernia. Patient was started on IV antibiotics and admitted. In addition she was noted to have a urinary tract infection. Blood cultures showed Gram-negative rods, likely bacteremia from the UTI. She did note improvement from abdominal pain from 10/10 to 4/10 the following day. She also complained of heartburn and odynophagia of for a few days. She was seen by GI. Recommendation was to continue IV antibiotics until abdominal pain improves. Start oral omeprazole for heartburn and odynophagia. To be scheduled for an upper endoscopy and colonoscopy, in 5-6 weeks time, after resolution of the diverticulitis. This was done on 04/24. Pathology revealed: Stomach body biopsy: Poorly differentiated carcinoma. Morphology and immunophenotype are not 100% specific but raise the possibility of metastatic lobular carcinoma of the breast. Other primary sources include gastric and other upper GI locations. ROS: She denies easy fatigability. Her appetite is good. She has lost some weight. One hundred fifty down to 135 lb. Denies headache no dizziness. No chest pain or trouble breathing. No cough nor shortness of breath no chest pain. She had some dyspepsia type symptoms when she was in house. The omeprazole has taken care of these. Occasional cramping prior to bowel movement. Denies diarrhea. Denies gross blood in the stools. She never had a previous colonoscopy. She had recent UTI symptoms. These have resolved. She has arthritis involving her knees. Denies any focal weakness. No depression/anxiety. Family history: Dad had pancreatic cancer at the age of 67. Mom had non-Hodgkin's lymphoma. 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 She has 3 children. She smoked as a teenager. She rarely drinks. Review of Systems - Constitutional Reports no additional constitutional complaints, Reports lack of energy, Reports malaise, Reports weakness, Reports weight loss - Eyes Reports no additional eye complaints - ENT Reports no additional ear, nose, mouth, and throat complaints - Cardiovascular Reports no additional cardiovascular complaints - Respiratory Reports no additional respiratory complaints - Gastrointestinal Reports no additional gastrointestinal complaints, Reports abdominal pain, Reports dyspepsia, Reports heartburn - Genitourinary Reports no additional female genitourinary complaints - Musculoskeletal Reports no additional musculoskeletal complaints - Integumentary/Breasts Skin/Breast: Reports no additional skin complaints - Neurologic Reports no additional neurologic complaints, Reports hearing normal, Reports weakness - Psychiatric Reports no additional psychiatric complaints - Endocrine Reports no additional endocrine complaints - Hematologic/Lymphatic Reports no additional hematologic/lymphatic complaints - Allergic/Immunologic Reports no additional allergic/immunologic complaints PMFSH Medical History: Medical History (Last Reviewed 03/22/21 @ 16:05 by Los Martínez RN) History of cellulitis Hx of diverticulitis of colon Hypercholesterolemia Lab test negative for COVID-19 virus Type 2 diabetes mellitus with hyperglycemia Functional capacity: independent ambulation Patient : No Family History: Family History (Last Reviewed 03/22/21 @ 16:08 by Los Martínez RN) Father Pancreatic cancer Mother NHL (non-Hodgkin's lymphoma) Maternal Grandfather Prostate cancer Maternal Grandmother Diabetes Heart disease Paternal Grandfather Diabetes Son Asthma Surgical History: Surgical History (Last Reviewed 03/22/21 @ 16:06 by Los Martínez RN) H/O tubal ligation History of esophagogastroduodenoscopy (EGD) History of gastrectomy Hx of appendectomy Hx of colonoscopy Hx of tonsillectomy S/P cholecystectomy Onset Date: ~1988 S/P right knee arthroscopy Onset Date: ~2002 Social History: Social History (Last Reviewed 03/22/21 @ 16:06 by Los Martínez RN) Living Situation History: Household Members: Spouse Household Members: Children Housing: House Are you a primary rn medicare to a significant other at home: No Do you presently have visiting nurse or other home services: No Alcohol History Details: Currently Displaying Signs/Symptoms of Alcohol Withdrawal: No Tobacco History: Patient Tobacco Use Status: Never used Tobacco Second Hand Smoke Exposure: No Substance Use History: Use of substances other than those prescribed or required for medical reasons: No Domestic Abuse History: Have you been hit, kicked, punched, or otherwise hurt by someone within the past year? 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 Performance Status ECOG Performance Status: 0 Home Medications and Allergies Current Medications: Current Medications Acetaminophen (Acetaminophen 325 Mg Tablet) 650 mg PO ONCE KHRIS Stop: 08/12/21 23:59 Diphenhydramine HCl (Diphenhydramine Hcl 50 Mg/Ml Vial) 25 mg IVPUSH ONCE KHRIS Stop: 08/12/21 23:59 Famotidine (Famotidine/Pf 20 Mg/2 Ml Vial) 20 mg IVPUSH ONCE KHRIS Stop: 08/12/21 23:59 Heparin Sodium (Porcine) (Heparin Sodium,Porcine Flush 500 Unit/5 Ml Syringe) 500 unit IVFLUSH ONCE KHRIS Stop: 08/12/21 23:59 Dexamethasone Sodium Phosphate (Decadron) 12 mg in 50 mls @ 200 mls/hr IV ONCE KHRIS Stop: 08/12/21 23:59 Ondansetron HCl (Zofran) 16 mg in 50 mls @ 200 mls/hr IV ONCE KHRIS Stop: 08/12/21 23:59 Home Medications Medication Instructions Recorded Confirmed Type multivitamin 1 tab PO DAILY 05/11/20 06/10/21 History Allergies Allergy/AdvReac Type Severity Reaction Status Date / Time meperidine [From Demerol] Allergy Severe Swelling Verified 05/06/21 11:05 Exam Vital signs: Vital Signs Temp 98.1 F 08/12/21 08:46 Pulse 73 08/12/21 08:46 Resp 20 08/12/21 08:46 BP 124/58 L 08/12/21 08:46 Pulse Ox 100 08/12/21 08:46 Intake & Output 08/11/21 08/12/21 08/12/21 18:59 06:59 18:59 Other: Weight 52.3 kg Weight in Grams [id number] Weight 52.3 kg BMI result Body Mass Index 19.8 - Constitutional Present: no acute distress - Routine HEENT Exam Head: Present: normal inspection Eye: Present: normal appearance ENT: Present: mucous membranes moist - Routine Neck Exam Present: full ROM - Routine Respiratory Exam Present: CTAB - Routine Cardiovascular Exam Cardiovascular: Present: RRR, S1, S2 - Routine Abdominal Exam Present: soft, nontender - Routine Rectal Exam Patient deferred: digital exam - Routine Extremities Exam Present: nontender - Routine Back/Spine/Pelvis Exam Back/Spine: Present: full ROM - Routine Skin Exam Present: intact - Routine Neurological Exam Present: alert, oriented X3, vision grossly intact - Detailed Neurological Exam: Coma Scale Eye Opening: Spontaneous (4) - Routine Psychiatric Exam Present: normal affect Data - Labs CBC & Chem 7: 08/12/21 09:00 08/12/21 09:00 Assessment and Plan Patient Active problem list reviewed?: Yes (1) Gastric cancer Status: Inactive (2) Gastric cancer Problem details: Gastrectomy, omentectomy, esophagojejunostomy, Melyssa-en-Y for gastric cancer Status: Acute Assessment and plan: This is a pleasant 64-year-old lady with a history of diabetes and diverticulosis. She had epigastric pain, off and on for a few months. She tells me she had GERD symptoms however she stopped eating sweets and those resolved. This was about 13 years ago. She was started on omeprazole recently which has been helping. Back in February she was admitted with a bout of diverticulitis. CT scan of the abdomen revealed: 1. Short segment mural thickening and pericolonic infiltrative changes in the proximal descending colon most consistent with acute diverticulitis or short segment colitis as a definitive diverticulum is not seen. 2. Mild left pelvocaliectasis without obstructing abnormality could be secondary to left ureteropelvic junction stenosis. Left renal cysts demonstrate benign features. Nonobstructing right upper pole intrarenal calculus. 3. Mild free fluid in the pelvis is presumed secondary to the colonic findings. 4. Very small hiatal hernia. Subsequently an upper endoscopy and colonoscopy was arranged. This was done on 04/[address] Fields. Colonoscopy was negative however upper endoscopy revealed: Poorly differentiated carcinoma, in the stomach. Possibility of metastatic lobular carcinoma of the breast was raised. Her breast exam was normal however, she tells me she has not had a mammogram in about 20 years. As per NCCN guidelines workup for gastric carcinoma that is recommended includes: 1. PET scan. 2. Endoscopic ultrasound to determine if disease is early versus locally advanced stage. She was sent over to the [facility] to have a mammogram: No mammographic evidence of malignancy. I checked baseline labs, including the tumor markers: CEA 5.1, Ca 27.29 103. l proceeded with a PET scan for staging. This revealed: No foci of abnormal FDG activity are visualized. There are no abnormalities visualized suspicious for metastatic or other malignant lesions. l requested endoscopic ultrasound for exact pathological staging. This was scheduled at [facility], by Dr. Blanco. The area of abnormality was very subtle. He took several biopsies. Unfortunately they came back positive. She has seen Dr. Rajan, to consider surgery by minimally invasive method. It was decided to proceed with FLOT chemotherapy in the neoadjuvant setting. She was started on it a few months ago. She has tolerated it reasonably well. She had a CT scan of the chest abdomen pelvis on 10/19 which revealed: remarkable CT chest with no pulmonary nodule or mass. Right central venous port tip is in the distal SVC. Moderate sized hiatal hernia. There is a large stool in the colon suggestive of severe constipation. No abnormal sized abdominal lymph nodes seen. Distended urinary bladder. She underwent endoscopic ultrasound since imaging was not very helpful. This was done on November [address] Blanco. There were no lesions seen. The random biopsies of the stomach lining were negative. She then underwent surgery on 12/[address] Rajan. 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 Tumor site: Residual tumor most prominent along the greater curvature. Tumor size: A distinct tumor mass is not identified grossly. 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 Histologic type: Diffuse type(signet ring carcinoma.) Histologic grade: G3, poorly differentiated. Tumor extension: Tumor invades mucosa, submucosa, muscularis propria and subserosal connective tissue, extending to the peritoneal surface.(pT4a.) Margins: Final anastomotic do not appear negative for carcinoma. Residual carcinoma is identified in en face sections of the proximal margin.(discohesive tumor cells in the submucosa.) Treatment effect: Evident tumor regression but with extensive residual carcinoma, (partial response, score 2-3. LV I: Identified. Additional findings: Extensive tumor infiltrates omental adipose tissue and is present on the peritoneal surface,(pM1). Regional lymph nodes: Number examined: 5. Number positive: 2. Ancillary studies: HER2 fish testing is negative. Pathologic stage: Following preop neoadjuvant therapy. Primary tumor:ypN1. Metastatic disease:ypM1. She has recuperated from the surgery. Gradually advanced her diet. CEA level: 5.60, previously, 5.8, 4.40, prior to that. I discussed further treatment options with her. The plan was made to proceed with palliative chemotherapy, in the second-line setting, as delineated in the Goehner trial. According to NCCN guidelines preferred regimen include: Paclitaxel 80 mg, on days 1, 8 and 15 + Ramucirumab 8 mg/kg, week 1 and 15 Q 28 days. l tried to see if I can substitute Abraxane for the paclitaxel. 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 Overall she is tolerating the treatment reasonably well. She had a CT scan of the chest abdomen pelvis on 07/12: Question postsurgical change to the stomach and small esophageal hernia. No definite mass appreciated. No enlarged lymph nodes. Stool throughout the colon suggestive of constipation. Question mild wall thickening or colitis of the cecum. She had an upper endoscopy on 06/[address] Fields which revealed: Small bowel biopsy: Normal limits, negative for celiac disease. Anastomotic biopsy: Squamocolumnar mucosa with moderate chronic active inflammation. There was no evidence for residual carcinoma. This is encouraging. She is here for cycle 5 day 15. She has a couple of weeks off after this. She appears to be tolerating the treatment reasonably well. PLAN: Hemoglobin is on the lower side will follow it. Assess need for transfusion She will receive Neulasta Onpro, today for chemotherapy-induced neutropenia. She will continue on the current regimen. She will complete another 3 cycles and then be re-staged. In the meantime she will continue to focus on nutrition and gaining her strength back. Will try omeprazole for her high in GI complaints. Thank you, CC: Dr. Clark. Dr. Fields. Dr. De Leon. Dr. Rajan - Time Spent With Patient Time Spent with Patient (in minutes): 30
[2021-08-12 09:23] LABS: Mucus Urine 1+ /LPF; Squamous Epithelial Cell Urine 1+ /LPF
[2021-08-12 09:24] LABS: Bacteria Urine 2+ /LPF; RBC Urine 0-2 /HPF (0)
[2021-08-12 09:36] LABS: Alanine Aminotransferase 16 U/L (0-31); Albumin Level 3.3 g/dL (3.5-5.0); Alkaline Phosphatase 112 U/L (39-117); Anion Gap 10 (12-20); Aspartate Amino Transferase 24 U/L (5-31); Bilirubin Direct < 0.2 mg/dL (0.0-0.5); Bilirubin Total 0.3 mg/dL (0.0-1.0); Blood Urea Nitrogen 9 mg/dL (9-16); Calcium 8.4 mg/dL (8.4-10.2); Carbon Dioxide 27 mmol/L (22-29); Chloride 107 mmol/L (96-108); Creatinine Clr Calc Pharmacy 90.8; Estimated Glomerular Filt Rate > 60; Glucose Random 38 mg/dL (60-115); Potassium 3.4 mmol/L (3.3-5.1); Sodium 141 mmol/L (135-145); Total Protein 5.3 g/dL (6.5-8.0)
[2021-08-12] MEDS: diphenhydrAMINE HCL 50 MG/ML VIAL 25 MG IVPUSH (09:54)
[2021-08-12] MEDS: Acetaminophen 325 MG TABLET 650 MG PO (09:54)
[2021-08-12] MEDS: Famotidine/PF 20 MG/2 ML VIAL IVPUSH (09:55)
[2021-08-12] MEDS: dexAMETHasone sod phosphate/NS 12 MG/50 ML PIGGYBACK 200 MG IV (10:23)
[2021-08-12 11:25] LABS: Glucose, Whole Blood 56 mg/dL (60-115)
[2021-08-12] MEDS: Heparin Sodium,Porcine Flush 500 UNIT/5 ML SYRINGE IVFLUSH (13:30)
[2021-08-12] MEDS: Pegfilgrastim Onpro 6 MG/0.6 ML SYR.W..INJ SUBCUT (13:34)
--- NOTE | 2021-08-12 13:58 | MHC.HEMONC ---
Here for C5 D15 Ramucirumab/Paclitaxel. Port accessed with good blood return noted. Labs drawn, results reviewed. Glucose 38, reported to Dr Cisneros. Pt given oj, and had breakfast. POC BS checked at 1034, result 56. Reported to Dr Cisneros. Pts only c/o since last treatment is tiredness. Does report some constipation. Premeds given as ordered. Treatment done and tolerated well. Port flushed with heparin and de-accessed. Neulasta onpro in place. Dr Cisneros in to see pt in follow up. Next treatment scheduled in 2 weeks.
[2021-08-26 08:56] VITALS: BP 150/70; PULSE 73; RESP 20; TEMP 35.8; O2SAT 100; BMI 19.8
[2021-08-26 09:24] LABS: MANUAL DIFF FLAG NO
[2021-08-26 09:32] LABS: Appearance Urine CLEAR; Color Urine YELLOW; Glucose Urine UA NEG (NEG); Leukocyte Esterase Urine TRACE (NEG); Nitrite Urine NEG (NEG); Urine Blood NEG (NEG); Urine Ketones NEG (NEG); Urine Protein NEG (NEG-TRACE)
[2021-08-26 09:41] LABS: Basophils Percent Auto 0.2 % (0-2); Eosinophils Percent Auto 0.4 % (0-4); Hematocrit 31.6 % (37.0-47.0); Imm Gran Abs Auto 0.11 X10*3/uL (0.00-0.03); Lymphocytes Absolute Auto 1.4 X10*3/uL (1.2-4.9); Lymphocytes Percent Auto 12.5 % (20-40); Mean Corpuscular HGB Conc 31.6 g/dl (31.0-35.0); Mean Corpuscular Hemoglobin 32.2 pg (27.0-33.0); Mean Corpuscular Volume 101.6 fL (80.0-98.0); Mean Platelet Volume 10.4 fL (9.4-12.3); Monocytes Absolute Auto 0.4 X10*3/uL (0.1-1.2); Monocytes Percent Auto 3.8 % (2-11); Neutrophils Percent Auto 82.1 % (45-73); Platelet Count 124 X10*3/uL (160-400); Red Blood Count 3.11 X10*6/uL (4.20-5.50); Red Cell Distribution Width 14.4 % (11.0-16.0); White Blood Count 10.9 X10*3/uL (4.8-10.8)
[2021-08-26 09:43] LABS: Squamous Epithelial Cell Urine 1+ /LPF
[2021-08-26 09:44] LABS: Bacteria Urine 1+ /LPF
[2021-08-26 09:45] LABS: RBC Urine 0-2 /HPF (0)
[2021-08-26 09:56] LABS: Alanine Aminotransferase 15 U/L (0-31); Albumin Level 3.3 g/dL (3.5-5.0); Alkaline Phosphatase 165 U/L (39-117); Anion Gap 10 (12-20); Aspartate Amino Transferase 23 U/L (5-31); Bilirubin Direct 0.2 mg/dL (0.0-0.5); Bilirubin Total 0.4 mg/dL (0.0-1.0); Blood Urea Nitrogen 10 mg/dL (9-16); Calcium 8.8 mg/dL (8.4-10.2); Carbon Dioxide 30 mmol/L (22-29); Chloride 105 mmol/L (96-108); Estimated Glomerular Filt Rate > 60; Glucose Random 92 mg/dL (60-115); Potassium 3.8 mmol/L (3.3-5.1); Sodium 141 mmol/L (135-145); Total Protein 5.4 g/dL (6.5-8.0)
[2021-08-26] MEDS: diphenhydrAMINE HCL 50 MG/ML VIAL 25 MG IVPUSH (10:20)
[2021-08-26] MEDS: Famotidine/PF 20 MG/2 ML VIAL IVPUSH (10:20)
[2021-08-26] MEDS: Acetaminophen 325 MG TABLET 650 MG PO (10:23)
[2021-08-26] MEDS: Ondansetron ODT 8 MG TAB.RAPDIS TRANSLINGU (10:23)
[2021-08-26] MEDS: dexAMETHasone sod phosphate/NS 12 MG/50 ML PIGGYBACK 200 MG IV (10:23)
[2021-08-26] MEDS: Heparin Sodium,Porcine Flush 500 UNIT/5 ML SYRINGE IVFLUSH (13:24)
--- NOTE | 2021-08-26 15:37 | MHC.HEMONC ---
Here for C6 D1 Ramucirumab/Paclitaxel. Port accessed with good blood return noted. Labs drawn and results reviewed. States is feeling ok. States has no energy after treatment. Also still has difficulty with eating. States it feels like the food doesn't go down and she does have some pain when eating. Weight is stable since last treatment. Premeds given as ordered. Treatment done and tolerated well. Port flushed with heparin and de-accessed. Scheduled for next treatment in 1 week.
[2021-09-02 09:02] VITALS: BMI 19.1
[2021-09-02 09:03] VITALS: BP 156/74; PULSE 75; RESP 18; TEMP 36.3; O2SAT 100
[2021-09-02 09:18] LABS: MANUAL DIFF FLAG NO
[2021-09-02 09:28] LABS: Basophils Percent Auto 0.4 % (0-2); Eosinophils Percent Auto 0.4 % (0-4); Hemoglobin 9.1 g/dl (12.0-16.0); Imm Gran Abs Auto 0.03 X10*3/uL (0.00-0.03); Imm Gran Pct Auto 0.6 % (0.0-0.4); Lymphocytes Absolute Auto 0.9 X10*3/uL (1.2-4.9); Lymphocytes Percent Auto 18.8 % (20-40); Mean Corpuscular HGB Conc 32.5 g/dl (31.0-35.0); Mean Corpuscular Hemoglobin 32.4 pg (27.0-33.0); Mean Corpuscular Volume 99.6 fL (80.0-98.0); Mean Platelet Volume 10.9 fL (9.4-12.3); Monocytes Absolute Auto 0.1 X10*3/uL (0.1-1.2); Monocytes Percent Auto 2.4 % (2-11); Neutrophils Absolute Auto 3.6 x10*3/uL (2.0-8.3); Neutrophils Percent Auto 77.4 % (45-73); Platelet Count 121 X10*3/uL (160-400); Red Blood Count 2.81 X10*6/uL (4.20-5.50); Red Cell Distribution Width 13.5 % (11.0-16.0); White Blood Count 4.6 X10*3/uL (4.8-10.8)
[2021-09-02 10:10] LABS: Alanine Aminotransferase 10 U/L (0-31); Albumin Level 3.2 g/dL (3.5-5.0); Alkaline Phosphatase 119 U/L (39-117); Anion Gap 11 (12-20); Aspartate Amino Transferase 18 U/L (5-31); Bilirubin Direct 0.2 mg/dL (0.0-0.5); Bilirubin Total 0.4 mg/dL (0.0-1.0); Blood Urea Nitrogen 7 mg/dL (9-16); Calcium 8.9 mg/dL (8.4-10.2); Carbon Dioxide 29 mmol/L (22-29); Chloride 103 mmol/L (96-108); Creatinine Clr Calc Pharmacy 83.1; Estimated Glomerular Filt Rate > 60; Glucose Random 78 mg/dL (60-115); Potassium 3.9 mmol/L (3.3-5.1); Sodium 139 mmol/L (135-145); Total Protein 5.3 g/dL (6.5-8.0)
[2021-09-02] MEDS: Ondansetron ODT 8 MG TAB.RAPDIS TRANSLINGU (10:22)
[2021-09-02] MEDS: Acetaminophen 325 MG TABLET 650 MG PO (10:22)
[2021-09-02] MEDS: dexAMETHasone sod phosphate/NS 12 MG/50 ML PIGGYBACK 200 MG IV (10:22)
[2021-09-02] MEDS: Famotidine/PF 20 MG/2 ML VIAL IVPUSH (10:23)
[2021-09-02] MEDS: Heparin Sodium,Porcine Flush 500 UNIT/5 ML SYRINGE IVFLUSH (10:23)
[2021-09-02] MEDS: diphenhydrAMINE HCL 50 MG/ML VIAL 25 MG IVPUSH (10:23)
[2021-09-09 09:05] VITALS: BP 142/74; PULSE 76; RESP 18; TEMP 36.6; O2SAT 100; BMI 18.6
--- NOTE | 2021-09-09 09:50 | PM.HEMONCPN ---
Medical Summary - Medical Summary Date of Service: 09/09/21 Chief complaint: Follow-up for: Gastric carcinoma. Medical Summary: DIAGNOSIS: GASTRIC CARCINOMA. CURRENT THERAPY: 1. FLOT CHEMOTHERAPY, completed 4 cycles, day 15. 2. She then underwent surgery on 12/[address] Rajan. 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 Tumor site: Residual tumor most prominent along the greater curvature. Tumor size: A distinct tumor mass is not identified grossly. 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 Histologic type: Diffuse type(signet ring carcinoma.) Histologic grade: G3, poorly differentiated. Tumor extension: Tumor invades mucosa, submucosa, muscularis propria and subserosal connective tissue, extending to the peritoneal surface.(pT4a.) Margins: Final anastomotic do not appear negative for carcinoma. Residual carcinoma is identified in en face sections of the proximal margin.(discohesive tumor cells in the submucosa.) Treatment effect: Evident tumor regression but with extensive residual carcinoma, (partial response, score 2-3. LV I: Identified. Additional findings: Extensive tumor infiltrates omental adipose tissue and is present on the peritoneal surface,(pM1). Regional lymph nodes: Number examined: 5. Number positive: 2. Ancillary studies: HER2 fish testing is negative. Pathologic stage: Following preop neoadjuvant therapy. Primary tumor:ypN1. Metastatic disease:ypM1. 3. Started on Taxol and Ramucirumab, cycle 6 day 15 today. Interval History Interval history: Sheryl Espinoza is a pleasant 65 year old lady here for a follow-up visit. She has started noticing some difficulty swallowing, again. She had previously had this but it had improved after her endoscopy and dilatation back in June. Now appears to be starting to recur. She denies heartburn or indigestion. She tells me that if she eats too much it hurts her in the upper chest area. It is difficult for her to eat, especially at one sitting. She tries to snack here in there. This has been going on since the surgery. She takes famotidine in the morning. Sometimes she gets epigastric pain for which she takes oxycodone. She uses it sparingly, especially at night. That is only way she can sleep 4-5 hours. Tylenol is not that effective. Lately she has had some constipation. She feels that the treatment is making her feel tired. She is here for cycle 6 day 15 of her chemotherapy. Overall, she has been tolerating the treatment well. She has lost some weight. Denies any chest pain or trouble with breathing. She is in good spirits. Rest of the review of systems is unremarkable. She is trying to be more active. She does try to work out for 20 minutes every day. Recent history: She had surgery done. She initially had an endoscopic ultrasound by Dr. Blanco, in November,. There were no lesions seen. The random biopsies of the stomach lining were negative. She then underwent surgery on 12/[address] Rajan. 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 Tumor site: Residual tumor most prominent along the greater curvature. Tumor size: A distinct tumor mass is not identified grossly. 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 Histologic type: Diffuse type(signet ring carcinoma.) Histologic grade: G3, poorly differentiated. Tumor extension: Tumor invades mucosa, submucosa, muscularis propria and subserosal connective tissue, extending to the peritoneal surface.(pT4a.) Margins: Final anastomotic do not appear negative for carcinoma. Residual carcinoma is identified in en face sections of the proximal margin.(discohesive tumor cells in the submucosa.) Treatment effect: Evident tumor regression but with extensive residual carcinoma, (partial response, score 2-3. LV I: Identified. Additional findings: Extensive tumor infiltrates omental adipose tissue and is present on the peritoneal surface,(pM1). Regional lymph nodes: Number examined: 5. Number positive: 2. Ancillary studies: HER2 fish testing is negative. Pathologic stage: Following preop neoadjuvant therapy. Primary tumor:ypN1. Metastatic disease:ypM1. Previous history: She was admitted to the hospital back towards the end of February,, with symptoms of acute diverticulitis and UTI. She had presented with 3 days history of left flank pain and dysuria. Abdominal pain was accompanied by decreased appetite nausea and 1 episode of vomiting on 02/27. CT scan of the abdomen revealed: 1.Short segment mural thickening and pericolonic infiltrative changes in the proximal descending colon most consistent with acute diverticulitis or short segment colitis. 2. Mild left pelvo- caliectasis, without obstructing abnormality could be secondary to left ureteropelvic junction stenosis. Left renal cyst demonstrated benign features. Nonobstructing right upper pole intrarenal calculus. 3. mild free fluid in the pelvis is presumed secondary to colonic findings. 4. Very small hiatus hernia. Patient was started on IV antibiotics and admitted. In addition she was noted to have a urinary tract infection. Blood cultures showed Gram-negative rods, likely bacteremia from the UTI. She did note improvement from abdominal pain from / to 4/10 the following day. She also complained of heartburn and odynophagia of for a few days. She was seen by GI. Recommendation was to continue IV antibiotics until abdominal pain improves. Start oral omeprazole for heartburn and odynophagia. To be scheduled for an upper endoscopy and colonoscopy, in 5-6 weeks time, after resolution of the diverticulitis. This was done on 04/24. Pathology revealed: Stomach body biopsy: Poorly differentiated carcinoma. Morphology and immunophenotype are not 100% specific but raise the possibility of metastatic lobular carcinoma of the breast. Other primary sources include gastric and other upper GI locations. ROS: She denies easy fatigability. Her appetite is good. She has lost some weight. One hundred fifty down to 135 lb. Denies headache no dizziness. No chest pain or trouble breathing. No cough nor shortness of breath no chest pain. She had some dyspepsia type symptoms when she was in house. The omeprazole has taken care of these. Occasional cramping prior to bowel movement. Denies diarrhea. Denies gross blood in the stools. She never had a previous colonoscopy. She had recent UTI symptoms. These have resolved. She has arthritis involving her knees. Denies any focal weakness. No depression/anxiety. Family history: Dad had pancreatic cancer at the age of 67. Mom had non-Hodgkin's lymphoma. 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 She has 3 children. She smoked as a teenager. She rarely drinks. Review of Systems - Constitutional Reports no additional constitutional complaints, Reports fatigue, Reports poor appetite, Reports weakness, Reports weight loss - Eyes Reports no additional eye complaints - ENT Reports no additional ear, nose, mouth, and throat complaints Comments: Dysphagia - Cardiovascular Reports no additional cardiovascular complaints - Respiratory Reports no additional respiratory complaints - Gastrointestinal Reports no additional gastrointestinal complaints - Genitourinary Reports no additional female genitourinary complaints - Musculoskeletal Reports no additional musculoskeletal complaints - Integumentary/Breasts Skin/Breast: Reports no additional skin complaints - Neurologic Reports no additional neurologic complaints, Reports hearing normal, Reports weakness - Psychiatric Reports no additional psychiatric complaints - Endocrine Reports no additional endocrine complaints - Hematologic/Lymphatic Reports no additional hematologic/lymphatic complaints - Allergic/Immunologic Reports no additional allergic/immunologic complaints [facility] Medical History: Medical History (Last Reviewed 03/22/21 @ 16:05 by Los Martínez RN) History of cellulitis Hx of diverticulitis of colon Hypercholesterolemia Lab test negative for COVID-19 virus Type 2 diabetes mellitus with hyperglycemia Functional capacity: independent ambulation Patient : No Family History: Family History (Last Reviewed 03/22/21 @ 16:08 by Los Martínez RN) Father Pancreatic cancer Mother NHL (non-Hodgkin's lymphoma) Maternal Grandfather Prostate cancer Maternal Grandmother Diabetes Heart disease Paternal Grandfather Diabetes Son Asthma Surgical History: Surgical History (Last Reviewed 03/22/21 @ 16:06 by Los Martínez RN) H/O tubal ligation History of esophagogastroduodenoscopy (EGD) History of gastrectomy Hx of appendectomy Hx of colonoscopy Hx of tonsillectomy S/P cholecystectomy Onset Date: ~1988 S/P right knee arthroscopy Onset Date: ~2002 Social History: Social History (Last Reviewed 03/22/21 @ 16:06 by Los Martínez RN) Living Situation History: Household Members: Spouse Household Members: Children Housing: House Are you a primary child care attendant to a significant other at home: No Do you presently have visiting nurse or other home services: No Tobacco History: Patient Tobacco Use Status: Never used Tobacco Second Hand Smoke Exposure: No Occupation Assessmet: service: No Current occupational status: unemployed Current occupational status: previously employed 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 Performance Status ECOG Performance Status: 0 Home Medications and Allergies Current Medications: Current Medications Acetaminophen (Acetaminophen 325 Mg Tablet) 650 mg PO ONCE KHRIS Stop: 09/09/21 23:59 Diphenhydramine HCl (Diphenhydramine Hcl 50 Mg/Ml Vial) 25 mg IVPUSH ONCE KHRIS Stop: 09/09/21 23:59 Famotidine (Famotidine/Pf 20 Mg/2 Ml Vial) 20 mg IVPUSH ONCE KHRIS Stop: 09/09/21 23:59 Heparin Sodium (Porcine) (Heparin Sodium,Porcine Flush 500 Unit/5 Ml Syringe) 500 unit IVFLUSH ONCE KHRIS Stop: 09/09/21 23:59 Dexamethasone Sodium Phosphate (Decadron) 12 mg in 50 mls @ 200 mls/hr IV ONCE KHRIS Stop: 09/09/21 23:59 Ondansetron HCl (Ondansetron Odt 8 Mg Tab.Rapdis) 8 mg TRANSLINGU ONCE KHRIS Stop: 09/09/21 23:59 Home Medications Medication Instructions Recorded Confirmed Type multivitamin 1 tab PO DAILY 05/11/20 06/10/21 History Allergies Allergy/AdvReac Type Severity Reaction Status Date / Time meperidine [From Demerol] Allergy Severe Swelling Verified 05/06/21 11:05 Exam Vital signs: Vital Signs Temp 97.9 F 09/09/21 09:05 Pulse 76 09/09/21 09:05 Resp 18 09/09/21 09:05 BP 142/74 H 09/09/21 09:05 Pulse Ox 100 09/09/21 09:05 Intake & Output 09/08/21 09/09/21 09/09/21 18:59 06:59 18:59 Other: Weight 49.2 kg [place] Weight in Grams 72869 Weight 49.2 kg BMI result Body Mass Index 18.6 - Constitutional Present: no acute distress - Routine HEENT Exam Head: Present: normal inspection Eye: Present: normal appearance ENT: Present: mucous membranes moist - Routine Neck Exam Present: full ROM - Routine Respiratory Exam Present: CTAB - Routine Cardiovascular Exam Cardiovascular: Present: RRR, S1, S2 - Routine Abdominal Exam Present: soft, nontender - Routine Rectal Exam Patient deferred: digital exam - Routine Extremities Exam Present: nontender - Routine Back/Spine/Pelvis Exam Back/Spine: Present: full ROM - Routine Skin Exam Present: intact - Routine Neurological Exam Present: alert, oriented X3, vision grossly intact - Detailed Neurological Exam: Coma Scale Eye Opening: Spontaneous (4) - Routine Psychiatric Exam Present: normal affect Data - Labs CBC & Chem 7: 09/09/21 09:37 09/09/21 09:50 Assessment and Plan Patient Active problem list reviewed?: Yes (1) Gastric cancer Status: Inactive (2) Gastric cancer Problem details: Gastrectomy, omentectomy, esophagojejunostomy, Melyssa-en-Y for gastric cancer Status: Acute Assessment and plan: This is a pleasant 64-year-old lady with a history of diabetes and diverticulosis. She had epigastric pain, off and on for a few months. She tells me she had GERD symptoms however she stopped eating sweets and those resolved. This was about 13 years ago. She was started on omeprazole recently which has been helping. Back in February she was admitted with a bout of diverticulitis. CT scan of the abdomen revealed: 1. Short segment mural thickening and pericolonic infiltrative changes in the proximal descending colon most consistent with acute diverticulitis or short segment colitis as a definitive diverticulum is not seen. 2. Mild left pelvocaliectasis without obstructing abnormality could be secondary to left ureteropelvic junction stenosis. Left renal cysts demonstrate benign features. Nonobstructing right upper pole intrarenal calculus. 3. Mild free fluid in the pelvis is presumed secondary to the colonic findings. 4. Very small hiatal hernia. Subsequently an upper endoscopy and colonoscopy was arranged. This was done on 04/[address] Fields. Colonoscopy was negative however upper endoscopy revealed: Poorly differentiated carcinoma, in the stomach. Possibility of metastatic lobular carcinoma of the breast was raised. Her breast exam was normal however, she tells me she has not had a mammogram in about 20 years. As per NCCN guidelines workup for gastric carcinoma that is recommended includes: 1. PET scan. 2. Endoscopic ultrasound to determine if disease is early versus locally advanced stage. [facility]: No mammographic evidence of malignancy. I checked baseline labs, including the tumor markers: CEA 5.1, Ca 27.29 103. l proceeded with a PET scan for staging. This revealed: No foci of abnormal FDG activity are visualized. There are no abnormalities visualized suspicious for metastatic or other malignant lesions. l requested endoscopic ultrasound for exact pathological staging. This was scheduled at [facility], by Dr. Blanco. The area of abnormality was very subtle. He took several biopsies. Unfortunately they came back positive. She has seen Dr. Rajan, to consider surgery by minimally invasive method. It was decided to proceed with FLOT chemotherapy in the neoadjuvant setting. She was started on it a few months ago. She has tolerated it reasonably well. She had a CT scan of the chest abdomen pelvis on 10/19 which revealed: remarkable CT chest with no pulmonary nodule or mass. Right central venous port tip is in the distal SVC. Moderate sized hiatal hernia. There is a large stool in the colon suggestive of severe constipation. No abnormal sized abdominal lymph nodes seen. Distended urinary bladder. She underwent endoscopic ultrasound since imaging was not very helpful. This was done on November [address] Blanco. There were no lesions seen. The random biopsies of the stomach lining were negative. She then underwent surgery on 12/[address] Rajan. 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 Tumor site: Residual tumor most prominent along the greater curvature. Tumor size: A distinct tumor mass is not identified grossly. 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 Histologic type: Diffuse type(signet ring carcinoma.) Histologic grade: G3, poorly differentiated. Tumor extension: Tumor invades mucosa, submucosa, muscularis propria and subserosal connective tissue, extending to the peritoneal surface.(pT4a.) Margins: Final anastomotic do not appear negative for carcinoma. Residual carcinoma is identified in en face sections of the proximal margin.(discohesive tumor cells in the submucosa.) Treatment effect: Evident tumor regression but with extensive residual carcinoma, (partial response, score 2-3. LV I: Identified. Additional findings: Extensive tumor infiltrates omental adipose tissue and is present on the peritoneal surface,(pM1). Regional lymph nodes: Number examined: 5. Number positive: 2. Ancillary studies: HER2 fish testing is negative. Pathologic stage: Following preop neoadjuvant therapy. Primary tumor:ypN1. Metastatic disease:ypM1. She has recuperated from the surgery. Gradually advanced her diet. CEA level: 5.60, previously, 5.8, 4.40, prior to that. I discussed further treatment options with her. The plan was made to proceed with palliative chemotherapy, in the second-line setting, as delineated in the [place] trial. According to NCCN guidelines preferred regimen include: Paclitaxel 80 mg, on days 1, 8 and 15 + Ramucirumab 8 mg/kg, week 1 and 15 Q 28 days. l tried to see if I can substitute Abraxane for the paclitaxel. However unfortunately Abraxane was not available, then, from the planner chief. Overall she has been tolerating the treatment reasonably well. She had a CT scan of the chest abdomen pelvis on 07/12: Question postsurgical change to the stomach and small esophageal hernia. No definite mass appreciated. No enlarged lymph nodes. Stool throughout the colon suggestive of constipation. Question mild wall thickening or colitis of the cecum. She had an upper endoscopy on 06/[address] Fields which revealed: Small bowel biopsy: Normal limits, negative for celiac disease. Anastomotic biopsy: Squamocolumnar mucosa with moderate chronic active inflammation. There was no evidence for residual carcinoma. This is encouraging. She is here for cycle 6 day 15. She appears to be tolerating the treatment reasonably well. Lately she has noticed some trouble swallowing. She is rather anemic however, hemoglobin is not that low that she would require a transfusion at this point. PLAN: Will refer her to GI for upper endoscopy with dilatation. That way we can also assess the status of the tumor. She will receive Neulasta Onpro, today for chemotherapy-induced neutropenia. She will continue on the current regimen. She will complete another cycle and then be re-staged. In the meantime she will continue to focus on nutrition and keeping her strength up. Thank you, CC: Dr. Clark. Dr. Fields. Dr. De Leon. Dr. Rajan - Time Spent With Patient Time Spent with Patient (in minutes): 30
[2021-09-09 10:02] LABS: Basophils Percent Auto 0.4 % (0-2); Hematocrit 27.8 % (37.0-47.0); Hemoglobin 8.8 g/dl (12.0-16.0); Imm Gran Abs Auto 0.02 X10*3/uL (0.00-0.03); Imm Gran Pct Auto 0.7 % (0.0-0.4); Lymphocytes Absolute Auto 0.7 X10*3/uL (1.2-4.9); Lymphocytes Percent Auto 25.6 % (20-40); MANUAL DIFF FLAG NO; Mean Corpuscular HGB Conc 31.7 g/dl (31.0-35.0); Mean Corpuscular Hemoglobin 31.5 pg (27.0-33.0); Mean Corpuscular Volume 99.6 fL (80.0-98.0); Mean Platelet Volume 10.6 fL (9.4-12.3); Monocytes Absolute Auto 0.1 X10*3/uL (0.1-1.2); Monocytes Percent Auto 3.3 % (2-11); Neutrophils Absolute Auto 1.9 x10*3/uL (2.0-8.3); Platelet Count 151 X10*3/uL (160-400); Red Blood Count 2.79 X10*6/uL (4.20-5.50); White Blood Count 2.7 X10*3/uL (4.8-10.8)
[2021-09-09 10:29] LABS: Appearance Urine HAZY; Color Urine YELLOW; Glucose Urine UA NEG (NEG); Leukocyte Esterase Urine 1+ (NEG); Nitrite Urine POS (NEG); Specific Gravity - Urine >= 1.030 (1.005-1.025); Urine Blood NEG (NEG); Urine Ketones NEG (NEG); Urine Protein NEG (NEG-TRACE)
[2021-09-09 10:33] LABS: Alanine Aminotransferase 12 U/L (0-31); Albumin Level 3.3 g/dL (3.5-5.0); Alkaline Phosphatase 106 U/L (39-117); Anion Gap 11 (12-20); Aspartate Amino Transferase 22 U/L (5-31); Bilirubin Direct < 0.2 mg/dL (0.0-0.5); Bilirubin Total 0.3 mg/dL (0.0-1.0); Blood Urea Nitrogen 10 mg/dL (9-16); Calcium 8.5 mg/dL (8.4-10.2); Carbon Dioxide 27 mmol/L (22-29); Chloride 106 mmol/L (96-108); Creatinine Clr Calc Pharmacy 92.7; Estimated Glomerular Filt Rate > 60; Glucose Random 57 mg/dL (60-115); Potassium 3.6 mmol/L (3.3-5.1); Sodium 140 mmol/L (135-145); Total Protein 5.6 g/dL (6.5-8.0)
[2021-09-09 10:53] LABS: Calcium Oxalate Crystals Urine 2+ /LPF; Squamous Epithelial Cell Urine 1+ /LPF
--- NOTE | 2021-09-09 10:53 | MHC.HEMONC ---
Nurse took t/c from Kimmy at lab, reporting critical low glucose of 57. Pt was eating breakfast at the time. Dr. Cisneros was updated.
[2021-09-09 10:54] LABS: Bacteria Urine 4+ /LPF
[2021-09-09 10:55] LABS: RBC Urine 0 /HPF (0)
[2021-09-09] MEDS: Famotidine/PF 20 MG/2 ML VIAL IVPUSH (11:03)
[2021-09-09] MEDS: dexAMETHasone sod phosphate/NS 12 MG/50 ML PIGGYBACK 200 MG IV (11:06)
[2021-09-09] MEDS: Acetaminophen 325 MG TABLET 650 MG PO (11:07)
[2021-09-09] MEDS: Ondansetron ODT 8 MG TAB.RAPDIS TRANSLINGU (11:07)
[2021-09-09] MEDS: diphenhydrAMINE HCL 50 MG/ML VIAL 25 MG IVPUSH (11:09)
[2021-09-09] MEDS: Pegfilgrastim Onpro 6 MG/0.6 ML SYR.W..INJ SUBCUT (14:46)
[2021-09-09] MEDS: Heparin Sodium,Porcine Flush 500 UNIT/5 ML SYRINGE IVFLUSH (14:46)
--- NOTE | 2021-09-09 15:52 | MHC.HEMONC ---
C6 D15: RAMUCIRUMAB/PACLITAXEL Port accessed without difficulty. Labs obtained and reviewed. Ok to treat per Dr. Cisneros. VSS. Exam with Dr. Cisneros. Chemotherapy completed at this time. Order for PET scan and endoscopy (patient reported some difficulty swallowing) Follow up in 2 weeks. Pre-medicated as ordered. Infusion well tolerated. Neulasta on PRO to right upper arm. Port de-accessed with heparin.
--- NOTE | 2021-09-10 10:53 | HO.HEMONCPA ---
Addendum entered by Clementina Cage 09/24/21 11:48: PA FOR PET/CT SCAN APPROVED. AUTH #[id number]. DOS 09/14/21 to 10/29/21 Original Note: PA FOR PET/CT SCAN REQUESTED FROM [facility]. AWAITING DECISION
[2021-09-24 10:19] VITALS: BP 137/72; PULSE 70; RESP 14; TEMP 36.1; O2SAT 100; BMI 19.5
[2021-09-24 10:52] LABS: MANUAL DIFF FLAG NO
[2021-09-24 10:56] LABS: Basophils Percent Auto 0.3 % (0-2); Eosinophils Absolute Auto 0.1 X10*3/uL (0.0-0.4); Eosinophils Percent Auto 0.4 % (0-4); Hematocrit 30.4 % (37.0-47.0); Hemoglobin 9.6 g/dl (12.0-16.0); Imm Gran Abs Auto 0.13 X10*3/uL (0.00-0.03); Imm Gran Pct Auto 0.9 % (0.0-0.4); Lymphocytes Absolute Auto 1.2 X10*3/uL (1.2-4.9); Lymphocytes Percent Auto 8.4 % (20-40); Mean Corpuscular HGB Conc 31.6 g/dl (31.0-35.0); Mean Corpuscular Hemoglobin 31.9 pg (27.0-33.0); Mean Platelet Volume 10.9 fL (9.4-12.3); Monocytes Absolute Auto 0.4 X10*3/uL (0.1-1.2); Monocytes Percent Auto 2.9 % (2-11); Neutrophils Absolute Auto 12.6 x10*3/uL (2.0-8.3); Neutrophils Percent Auto 87.1 % (45-73); Platelet Count 131 X10*3/uL (160-400); Red Blood Count 3.01 X10*6/uL (4.20-5.50); Red Cell Distribution Width 14.7 % (11.0-16.0); White Blood Count 14.5 X10*3/uL (4.8-10.8)
--- NOTE | 2021-09-24 11:06 | MHC.HEMONC ---
Port accessed without difficulty. Labs obtained and reviewed with patient. Exam with Dr. Cisneros today. Plan for PET scan and follow up in 2 weeks and 6 weeks for port flush. Calender provided. Lins-ti-[id number] with Heparin.
[2021-09-24 11:16] LABS: Alanine Aminotransferase 13 U/L (0-31); Albumin Level 3.2 g/dL (3.5-5.0); Alkaline Phosphatase 146 U/L (39-117); Anion Gap 7 (12-20); Aspartate Amino Transferase 22 U/L (5-31); Bilirubin Total 0.3 mg/dL (0.0-1.0); Blood Urea Nitrogen 10 mg/dL (9-16); Calcium 8.5 mg/dL (8.4-10.2); Carbon Dioxide 32 mmol/L (22-29); Chloride 104 mmol/L (96-108); Creatinine Clr Calc Pharmacy 80.4; Estimated Glomerular Filt Rate > 60; Glucose Random 77 mg/dL (60-115); Potassium 4.2 mmol/L (3.3-5.1); Sodium 139 mmol/L (135-145); Total Protein 5.3 g/dL (6.5-8.0)
--- NOTE | 2021-09-24 11:17 | MHC.HEMONCMA ---
Pt was in for follow up. Clinical summary reviewed and updated, VSS. Labs were drawn . Pt to return in 2 weeks.
--- NOTE | 2021-09-24 11:24 | P.PNHO_ITS ---
Medical Summary - Medical Summary Date of Service: 09/24/21 Chief complaint: Consult for: Gastric carcinoma. Medical Summary: DIAGNOSIS: GASTRIC CARCINOMA. CURRENT THERAPY: 1. FLOT CHEMOTHERAPY, completed 4 cycles, day 15. 2. She then underwent surgery on 12/[address] Rajan. 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 Tumor site: Residual tumor most prominent along the greater curvature. Tumor size: A distinct tumor mass is not identified grossly. 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 Histologic type: Diffuse type(signet ring carcinoma.) Histologic grade: G3, poorly differentiated. Tumor extension: Tumor invades mucosa, submucosa, muscularis propria and subserosal connective tissue, extending to the peritoneal surface.(pT4a.) Margins: Final anastomotic do not appear negative for carcinoma. Residual carcinoma is identified in en face sections of the proximal margin.(discohesive tumor cells in the submucosa.) Treatment effect: Evident tumor regression but with extensive residual carcinoma, (partial response, score 2-3. LV I: Identified. Additional findings: Extensive tumor infiltrates omental adipose tissue and is present on the peritoneal surface,(pM1). Regional lymph nodes: Number examined: 5. Number positive: 2. Ancillary studies: HER2 fish testing is negative. Pathologic stage: Following preop neoadjuvant therapy. Primary tumor:ypN1. Metastatic disease:ypM1. 3. Completed Taxol and Ramucirumab, cycle 6 day 15 on 09/09. Interval History Interval history: Sheryl Espinoza is a pleasant 65 year old lady here for a follow-up visit. She had started noticing some difficulty swallowing, again. She had previously had this but it had improved after her endoscopy and dilatation back in June. She was referred to GI for upper endoscopy with dilatation. She had that done on 09/[address] Kay: Balloon dilatation of esophageal jejunal anastomosis with a 19 mm CRE balloon was done. Upper esophagus then dilated to 18 mm with resistance felt and superficial tears noted with heme. No evidence for tumor in the gastric remnant. Since the procedure, 1st 2 days it still her to swallow that has gotten better however she still has a heavy feeling in the chest that occurs after swallowing. She denies heartburn or indigestion. She tells me that if she eats too much it hurts her in the upper chest area. It is difficult for her to eat, especially at one sitting. She tries to snack here in there. This has been going on since the surgery. She takes famotidine in the morning. Sometimes she gets epigastric pain for which she takes oxycodone. She uses it sparingly, especially at night. That is only way she can sleep 4-5 hours. Tylenol is not that effective. Lately she has had some constipation. She has lost some weight. Her energy level has been getting better. Denies any chest pain or trouble with breathing. She is in good spirits. Rest of the review of systems is unremarkable. She is trying to be more active. She does try to work out for 20 minutes every day. Recent history: She had surgery done. She initially had an endoscopic ultrasound by Dr. Blanco, in November,. There were no lesions seen. The random biopsies of the stomach lining were negative. She then underwent surgery on 12/[address] Rajan. 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 Tumor site: Residual tumor most prominent along the greater curvature. Tumor size: A distinct tumor mass is not identified grossly. 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 Histologic type: Diffuse type(signet ring carcinoma.) Histologic grade: G3, poorly differentiated. Tumor extension: Tumor invades mucosa, submucosa, muscularis propria and subserosal connective tissue, extending to the peritoneal surface.(pT4a.) Margins: Final anastomotic do not appear negative for carcinoma. Residual carcinoma is identified in en face sections of the proximal margin.(discohesive tumor cells in the submucosa.) Treatment effect: Evident tumor regression but with extensive residual carcinoma, (partial response, score 2-3. LV I: Identified. Additional findings: Extensive tumor infiltrates omental adipose tissue and is present on the peritoneal surface,(pM1). Regional lymph nodes: Number examined: 5. Number positive: 2. Ancillary studies: HER2 fish testing is negative. Pathologic stage: Following preop neoadjuvant therapy. Primary tumor:ypN1. Metastatic disease:ypM1. Previous history: She was admitted to the hospital back towards the end of February,, with symptoms of acute diverticulitis and UTI. She had presented with 3 days history of left flank pain and dysuria. Abdominal pain was accompanied by decreased appetite nausea and 1 episode of vomiting on 02/27. CT scan of the abdomen revealed: 1.Short segment mural thickening and pericolonic infiltrative changes in the proximal descending colon most consistent with acute diverticulitis or short segment colitis. 2. Mild left pelvo- caliectasis, without obstructing abnormality could be secondary to left ureteropelvic junction stenosis. Left renal cyst demonstrated benign features. Nonobstructing right upper pole intrarenal calculus. 3. mild free fluid in the pelvis is presumed secondary to colonic findings. 4. Very small hiatus hernia. Patient was started on IV antibiotics and admitted. In addition she was noted to have a urinary tract infection. Blood cultures showed Gram-negative rods, likely bacteremia from the UTI. She did note improvement from abdominal pain from 10/10 to 4/10 the following day. She also complained of heartburn and odynophagia of for a few days. She was seen by GI. Recommendation was to continue IV antibiotics until abdominal pain improves. Start oral omeprazole for heartburn and odynophagia. To be scheduled for an upper endoscopy and colonoscopy, in 5-6 weeks time, after resolution of the diverticulitis. This was done on 04/24. Pathology revealed: Stomach body biopsy: Poorly differentiated carcinoma. Morphology and immunophenotype are not 100% specific but raise the possibility of metastatic lobular carcinoma of the breast. Other primary sources include gastric and other upper GI locations. ROS: She denies easy fatigability. Her appetite is good. She has lost some weight. One hundred fifty down to 135 lb. Denies headache no dizziness. No chest pain or trouble breathing. No cough nor shortness of breath no chest pain. She had some dyspepsia type symptoms when she was in house. The omeprazole has taken care of these. Occasional cramping prior to bowel movement. Denies diarrhea. Denies gross blood in the stools. She never had a previous colonoscopy. She had recent UTI symptoms. These have resolved. She has arthritis involving her knees. Denies any focal weakness. No depression/anxiety. Family history: Dad had pancreatic cancer at the age of 67. Mom had non-Hodgkin's lymphoma. 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 She has 3 children. She smoked as a teenager. She rarely drinks. Review of Systems - Constitutional Reports no additional constitutional complaints, Denies weight loss - Eyes Reports no additional eye complaints - ENT Reports no additional ear, nose, mouth, and throat complaints - Cardiovascular Reports no additional cardiovascular complaints - Respiratory Reports no additional respiratory complaints - Gastrointestinal Reports no additional gastrointestinal complaints - Genitourinary Reports no additional female genitourinary complaints - Musculoskeletal Reports no additional musculoskeletal complaints - Integumentary/Breasts Skin/Breast: Reports no additional skin complaints - Neurologic Reports no additional neurologic complaints, Reports hearing normal, Reports weakness - Psychiatric Reports no additional psychiatric complaints - Endocrine Reports no additional endocrine complaints - Hematologic/Lymphatic Reports no additional hematologic/lymphatic complaints - Allergic/Immunologic Reports no additional allergic/immunologic complaints [facility] Medical History: Medical History (Last Reviewed 09/24/21 @ 10:22 by Clover Thomson [facility]) History of cellulitis Hx of diverticulitis of colon Hypercholesterolemia Lab test negative for COVID-19 virus Type 2 diabetes mellitus with hyperglycemia Functional capacity: independent ambulation Patient : No Family History: Family History (Last Reviewed 09/24/21 @ 10:22 by Clover Thomson CMA) Father Pancreatic cancer Mother NHL (non-Hodgkin's lymphoma) Maternal Grandfather Prostate cancer Maternal Grandmother Diabetes Heart disease Paternal Grandfather Diabetes Son Asthma Surgical History: Surgical History (Last Reviewed 09/24/21 @ 10:22 by Clover Thomson [employer]) H/O tubal ligation History of esophagogastroduodenoscopy (EGD) History of gastrectomy Hx of appendectomy Hx of colonoscopy Hx of tonsillectomy S/P cholecystectomy Onset Date: ~1988 S/P right knee arthroscopy Onset Date: ~2002 Social History: Social History (Last Updated 09/24/21 @ 10:23 by Clover Thomson CMA) Living Situation History: Household Members: Spouse Household Members: Children Housing: House Are you a primary palliative care nurse to a significant other at home: No Do you presently have visiting nurse or other home services: No Alcohol History Details: 1. How often do you have a drink containing alcohol?: a. Never Currently Displaying Signs/Symptoms of Alcohol Withdrawal: No Tobacco History: Patient Tobacco Use Status: Never used Tobacco Second Hand Smoke Exposure: No Substance Use History: Use of substances other than those prescribed or required for medical reasons : No Domestic Abuse History: Have you been hit, kicked, punched, or otherwise hurt by someone within the past year? 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 Performance Status ECOG Performance Status: 0 Home Medications and Allergies Home Medications Medication Instructions Recorded Confirmed Type multivitamin 1 tab PO DAILY 05/11/20 09/24/21 History sucralfate 1 gram tablet 1 g PO TID 09/16/21 09/24/21 History Allergies Allergy/AdvReac Type Severity Reaction Status Date / Time meperidine [From Demerol] Allergy Severe Swelling Verified 09/24/21 10:23 Exam Vital signs: Vital Signs Temp 96.9 F 09/24/21 10:19 Pulse 70 09/24/21 10:19 Resp 14 09/24/21 10:19 BP 137/72 09/24/21 10:19 Pulse Ox 100 09/24/21 10:19 Intake & Output 09/23/21 09/24/21 09/24/21 18:59 06:59 18:59 Other: Weight 51.8 kg [place] Weight in Grams 35303 Weight 51.8 kg BMI result Body Mass Index 19.5 - Constitutional Present: no acute distress - Routine HEENT Exam Head: Present: normal inspection Eye: Present: normal appearance ENT: Present: mucous membranes moist - Routine Neck Exam Present: full ROM - Routine Respiratory Exam Present: CTAB - Routine Cardiovascular Exam Cardiovascular: Present: RRR, S1, S2 - Routine Abdominal Exam Present: soft, nontender - Routine Rectal Exam Patient deferred: digital exam - Routine Extremities Exam Present: nontender - Routine Back/Spine/Pelvis Exam Back/Spine: Present: full ROM - Routine Skin Exam Present: intact - Routine Neurological Exam Present: alert, oriented X3, vision grossly intact - Detailed Neurological Exam: Coma Scale Eye Opening: Spontaneous (4) - Routine Psychiatric Exam Present: normal affect Data - Labs CBC & Chem 7: 09/24/21 10:35 09/24/21 10:35 Assessment and Plan Patient Active problem list reviewed?: Yes (1) Gastric cancer Status: Inactive (2) Gastric cancer Problem details: Gastrectomy, omentectomy, esophagojejunostomy, Melyssa-en-Y for gastric cancer Status: Acute Assessment and plan: This is a pleasant 64-year-old lady with a history of diabetes and diverticulosis. She had epigastric pain, off and on for a few months. She tells me she had GERD symptoms however she stopped eating sweets and those resolved. This was about 13 years ago. She was started on omeprazole recently which has been helping. Back in February she was admitted with a bout of diverticulitis. CT scan of the abdomen revealed: 1. Short segment mural thickening and pericolonic infiltrative changes in the proximal descending colon most consistent with acute diverticulitis or short segment colitis as a definitive diverticulum is not seen. 2. Mild left pelvocaliectasis without obstructing abnormality could be secondary to left ureteropelvic junction stenosis. Left renal cysts demonstrate benign features. Nonobstructing right upper pole intrarenal calculus. 3. Mild free fluid in the pelvis is presumed secondary to the colonic findings. 4. Very small hiatal hernia. Subsequently an upper endoscopy and colonoscopy was arranged. This was done on 04/[address] Fields. Colonoscopy was negative however upper endoscopy revealed: Poorly differentiated carcinoma, in the stomach. Possibility of metastatic lobular carcinoma of the breast was raised. Her breast exam was normal however, she tells me she has not had a mammogram in about 20 years. As per NCCN guidelines workup for gastric carcinoma that is recommended includes: 1. PET scan. 2. Endoscopic ultrasound to determine if disease is early versus locally advanced stage. She was sent over to the [facility] to have a mammogram: No mammographic evidence of malignancy. I checked baseline labs, including the tumor markers: CEA 5.1, Ca 27.29 103. l proceeded with a PET scan for staging. This revealed: No foci of abnormal FDG activity are visualized. There are no abnormalities visualized suspicious for metastatic or other malignant lesions. l requested endoscopic ultrasound for exact pathological staging. This was scheduled at [facility], by Dr. Blanco. The area of abnormality was very subtle. He took several biopsies. Unfortunately they came back positive. She has seen Dr. Rajan, to consider surgery by minimally invasive method. It was decided to proceed with FLOT chemotherapy in the neoadjuvant setting. She was started on it a few months ago. She has tolerated it reasonably well. She had a CT scan of the chest abdomen pelvis on 10/19 which revealed: remarkable CT chest with no pulmonary nodule or mass. Right central venous port tip is in the distal SVC. Moderate sized hiatal hernia. There is a large stool in the colon suggestive of severe constipation. No abnormal sized abdominal lymph nodes seen. Distended urinary bladder. She underwent endoscopic ultrasound since imaging was not very helpful. This was done on November [address] Blanco. There were no lesions seen. The random biopsies of the stomach lining were negative. She then underwent surgery on 12/[address] Rajan. 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 Tumor site: Residual tumor most prominent along the greater curvature. Tumor size: A distinct tumor mass is not identified grossly. 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 Histologic type: Diffuse type(signet ring carcinoma.) Histologic grade: G3, poorly differentiated. Tumor extension: Tumor invades mucosa, submucosa, muscularis propria and subserosal connective tissue, extending to the peritoneal surface.(pT4a.) Margins: Final anastomotic do not appear negative for carcinoma. Residual carcinoma is identified in en face sections of the proximal margin.(discohesive tumor cells in the submucosa.) Treatment effect: Evident tumor regression but with extensive residual carcinoma, (partial response, score 2-3. LV I: Identified. Additional findings: Extensive tumor infiltrates omental adipose tissue and is present on the peritoneal surface,(pM1). Regional lymph nodes: Number examined: 5. Number positive: 2. Ancillary studies: HER2 fish testing is negative. Pathologic stage: Following preop neoadjuvant therapy. Primary tumor:ypN1. Metastatic disease:ypM1. She has recuperated from the surgery. Gradually advanced her diet. CEA level: 5.60, previously, 5.8, 4.40, prior to that. I discussed further treatment options with her. The plan was made to proceed with palliative chemotherapy, in the second-line setting, as delineated in the Pollard trial. According to NCCN guidelines preferred regimen include: Paclitaxel 80 mg, on days 1, 8 and 15 + Ramucirumab 8 mg/kg, week 1 and 15 Q 28 days. l tried to see if I can substitute Abraxane for the paclitaxel. However unfortunately Abraxane was not available, then, from the die maker stamping. Overall she has been tolerating the treatment reasonably well. She had a CT scan of the chest abdomen pelvis on 07/12: Question postsurgical change to the stomach and small esophageal hernia. No definite mass appreciated. No enlarged lymph nodes. Stool throughout the colon suggestive of constipation. Question mild wall thickening or colitis of the cecum. She had an upper endoscopy on 06/[address] Fields which revealed: Small bowel biopsy: Normal limits, negative for celiac disease. Anastomotic biopsy: Squamocolumnar mucosa with moderate chronic active inflammation. There was no evidence for residual carcinoma. This is encouraging. She had her cycle 6 day 15, on 09/09. She tolerated the treatment reasonably well. Lately she had noticed some trouble swallowing. She was referred to GI for upper endoscopy with dilatation. She had that done on 09/[address] Kay: Balloon dilatation of esophageal jejunal anastomosis with a 19 mm CRE balloon was done. Upper esophagus then dilated to 18 mm with resistance felt and superficial tears noted with heme. No evidence for tumor in the gastric remnant. PLAN: She is scheduled for a PET scan next week. If that is negative she would like to take a break from chemotherapy. I will see her back in a couple of week's time. In the meantime she will continue to focus on nutrition and keeping her strength up. Thank you, CC: Dr. Clark. Dr. Fields. Dr. De Leon. Dr. Rajan - Time Spent With Patient Time Spent with Patient (in minutes): 30
--- NOTE | 2021-09-24 12:10 | HO.HEMONCPA ---
SENT IN CLINICAL INFORMATION TO [facility] , AWAITING APPT DATE & TIME .
--- NOTE | 2021-09-27 12:18 | HE.ONCSEC ---
LICHA FROM [facility] CALLED IN REGARDS TO PT . SHE SAYS SHE HAS BEEN TRYING TO GET A HOLD OF THE PATIENT TO INFORM PT OF TIME CHANGE FOR THE PET CT . THE APPT IS NOW FOR 11:15. I WILL CALL PT TO LET HER KNOW OF THIS AND SHE CAN PLEASE CALL LICHA BACK.
--- NOTE | 2021-09-28 08:42 | HE.ONCSEC ---
PATIENT IS SCHEDULED FOR PET CT 09/28/21 AT 11:45AM
[2021-10-07 10:05] VITALS: BP 144/65; PULSE 76; RESP 14; TEMP 35.8; O2SAT 100; BMI 19.8
--- NOTE | 2021-10-07 11:12 | PM.HEMONCPN ---
Medical Summary - Medical Summary Date of Service: 10/07/21 Chief complaint: Follow-up for: Gastric carcinoma. Medical Summary: DIAGNOSIS: GASTRIC CARCINOMA. CURRENT THERAPY: 1. FLOT CHEMOTHERAPY, completed 4 cycles, day 15. 2. She then underwent surgery on 12/[address] Rajan. 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 Tumor site: Residual tumor most prominent along the greater curvature. Tumor size: A distinct tumor mass is not identified grossly. 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 Histologic type: Diffuse type(signet ring carcinoma.) Histologic grade: G3, poorly differentiated. Tumor extension: Tumor invades mucosa, submucosa, muscularis propria and subserosal connective tissue, extending to the peritoneal surface.(pT4a.) Margins: Final anastomotic do not appear negative for carcinoma. Residual carcinoma is identified in en face sections of the proximal margin.(discohesive tumor cells in the submucosa.) Treatment effect: Evident tumor regression but with extensive residual carcinoma, (partial response, score 2-3. LV I: Identified. Additional findings: Extensive tumor infiltrates omental adipose tissue and is present on the peritoneal surface,(pM1). Regional lymph nodes: Number examined: 5. Number positive: 2. Ancillary studies: HER2 fish testing is negative. Pathologic stage: Following preop neoadjuvant therapy. Primary tumor:ypN1. Metastatic disease:ypM1. 3. Completed Taxol and Ramucirumab, cycle 6 day 15 on 09/09. Interval History Interval history: Sheryl Espinoza is a pleasant 65 year old lady here for a follow-up visit. She had started noticing some difficulty swallowing, again. She had previously had this but it had improved after her endoscopy and dilatation back in June. She was referred to GI for upper endoscopy with dilatation. She had that done on 09/[address] Kay: Balloon dilatation of esophageal jejunal anastomosis with a 19 mm CRE balloon was done. Upper esophagus then dilated to 18 mm with resistance felt and superficial tears noted with heme. No evidence for tumor in the gastric remnant. Since the procedure, her swallowing has gotten better. She has started gaining weight. She denies heartburn or indigestion. It is difficult for her to eat, especially at one sitting. She tries to snack here in there. This has been going on since the surgery. She takes famotidine in the morning. Sometimes she gets epigastric pain for which she takes oxycodone. She uses it sparingly, especially at night. That is only way she can sleep 4-5 hours. Tylenol is not that effective. Lately she has had some constipation. She has lost some weight. Her energy level has been getting better. Denies any chest pain or trouble with breathing. She is in good spirits. Rest of the review of systems is unremarkable. She is trying to be more active. She does try to work out for 20 minutes every day. Recent history: She had surgery done. She initially had an endoscopic ultrasound by Dr. Blanco, in November,. There were no lesions seen. The random biopsies of the stomach lining were negative. She then underwent surgery on 12/[address] Rajan. 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 Tumor site: Residual tumor most prominent along the greater curvature. Tumor size: A distinct tumor mass is not identified grossly. 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 Histologic type: Diffuse type(signet ring carcinoma.) Histologic grade: G3, poorly differentiated. Tumor extension: Tumor invades mucosa, submucosa, muscularis propria and subserosal connective tissue, extending to the peritoneal surface.(pT4a.) Margins: Final anastomotic do not appear negative for carcinoma. Residual carcinoma is identified in en face sections of the proximal margin.(discohesive tumor cells in the submucosa.) Treatment effect: Evident tumor regression but with extensive residual carcinoma, (partial response, score 2-3. LV I: Identified. Additional findings: Extensive tumor infiltrates omental adipose tissue and is present on the peritoneal surface,(pM1). Regional lymph nodes: Number examined: 5. Number positive: 2. Ancillary studies: HER2 fish testing is negative. Pathologic stage: Following preop neoadjuvant therapy. Primary tumor:ypN1. Metastatic disease:ypM1. Previous history: She was admitted to the hospital back towards the end of February,, with symptoms of acute diverticulitis and UTI. She had presented with 3 days history of left flank pain and dysuria. Abdominal pain was accompanied by decreased appetite nausea and 1 episode of vomiting on 02/27. CT scan of the abdomen revealed: 1.Short segment mural thickening and pericolonic infiltrative changes in the proximal descending colon most consistent with acute diverticulitis or short segment colitis. 2. Mild left pelvo- caliectasis, without obstructing abnormality could be secondary to left ureteropelvic junction stenosis. Left renal cyst demonstrated benign features. Nonobstructing right upper pole intrarenal calculus. 3. mild free fluid in the pelvis is presumed secondary to colonic findings. 4. Very small hiatus hernia. Patient was started on IV antibiotics and admitted. In addition she was noted to have a urinary tract infection. Blood cultures showed Gram-negative rods, likely bacteremia from the UTI. She did note improvement from abdominal pain from 10/10 to 4/10 the following day. She also complained of heartburn and odynophagia of for a few days. She was seen by GI. Recommendation was to continue IV antibiotics until abdominal pain improves. Start oral omeprazole for heartburn and odynophagia. To be scheduled for an upper endoscopy and colonoscopy, in 5-6 weeks time, after resolution of the diverticulitis. This was done on 04/24. Pathology revealed: Stomach body biopsy: Poorly differentiated carcinoma. Morphology and immunophenotype are not 100% specific but raise the possibility of metastatic lobular carcinoma of the breast. Other primary sources include gastric and other upper GI locations. ROS: She denies easy fatigability. Her appetite is good. She has lost some weight. One hundred fifty down to 135 lb. Denies headache no dizziness. No chest pain or trouble breathing. No cough nor shortness of breath no chest pain. She had some dyspepsia type symptoms when she was in house. The omeprazole has taken care of these. Occasional cramping prior to bowel movement. Denies diarrhea. Denies gross blood in the stools. She never had a previous colonoscopy. She had recent UTI symptoms. These have resolved. She has arthritis involving her knees. Denies any focal weakness. No depression/anxiety. Family history: Dad had pancreatic cancer at the age of 67. Mom had non-Hodgkin's lymphoma. 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 She has 3 children. She smoked as a teenager. She rarely drinks. Review of Systems - Constitutional Reports no additional constitutional complaints - Eyes Reports no additional eye complaints - ENT Reports no additional ear, nose, mouth, and throat complaints - Cardiovascular Reports no additional cardiovascular complaints - Respiratory Reports no additional respiratory complaints - Gastrointestinal Reports no additional gastrointestinal complaints - Genitourinary Reports no additional female genitourinary complaints - Musculoskeletal Reports no additional musculoskeletal complaints - Integumentary/Breasts Skin/Breast: Reports no additional skin complaints - Neurologic Reports no additional neurologic complaints, Reports hearing normal, Reports weakness - Psychiatric Reports no additional psychiatric complaints - Endocrine Reports no additional endocrine complaints - Hematologic/Lymphatic Reports no additional hematologic/lymphatic complaints - Allergic/Immunologic Reports no additional allergic/immunologic complaints PMFSH Medical History: Medical History (Last Reviewed 10/07/21 @ 10:07 by Clover Thomson CMA) History of cellulitis Hx of diverticulitis of colon Hypercholesterolemia Lab test negative for COVID-19 virus Type 2 diabetes mellitus with hyperglycemia Functional capacity: independent ambulation Patient : Yes Family History: Family History (Last Reviewed 10/07/21 @ 10:07 by Clover Thomson CMA) Father Pancreatic cancer Mother NHL (non-Hodgkin's lymphoma) Maternal Grandfather Prostate cancer Maternal Grandmother Diabetes Heart disease Paternal Grandfather Diabetes Son Asthma Surgical History: Surgical History (Last Reviewed 10/07/21 @ 10:07 by Clover Thomson CMA) H/O tubal ligation History of esophagogastroduodenoscopy (EGD) History of gastrectomy Hx of appendectomy Hx of colonoscopy Hx of tonsillectomy S/P cholecystectomy Onset Date: ~1988 S/P right knee arthroscopy Onset Date: ~2002 Social History: Social History (Last Reviewed 10/07/21 @ 10:07 by Clover Thomson CMA) Living Situation History: Household Members: Spouse Household Members: Children Housing: House Are you a primary progressive care manager to a significant other at home: No Do you presently have visiting nurse or other home services: No Alcohol History Details: 1. How often do you have a drink containing alcohol?: a. Never Currently Displaying Signs/Symptoms of Alcohol Withdrawal: No Tobacco History: Patient Tobacco Use Status: Never used Tobacco Second Hand Smoke Exposure: No Substance Use History: Use of substances other than those prescribed or required for medical reasons: No Domestic Abuse History: Have you been hit, kicked, punched, or otherwise hurt by someone within the past year? 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 Performance Status ECOG Performance Status: 0 Home Medications and Allergies Home Medications Medication Instructions Recorded Confirmed Type multivitamin 1 tab PO DAILY 05/11/20 10/07/21 History Allergies Allergy/AdvReac Type Severity Reaction Status Date / Time meperidine [From Demerol] Allergy Severe Swelling Verified 10/07/21 10:08 Exam Vital signs: Vital Signs Temp 96.5 F L 10/07/21 10:05 Pulse 76 10/07/21 10:05 Resp 14 10/07/21 10:05 BP 144/65 H 10/07/21 10:05 Pulse Ox 100 10/07/21 10:05 Intake & Output 10/06/21 10/07/21 10/07/21 18:59 06:59 18:59 Other: Weight 52.3 kg Weight in Grams 71273 Weight 52.3 kg BMI result Body Mass Index 19.8 - Constitutional Present: no acute distress - Routine HEENT Exam Head: Present: normal inspection Eye: Present: normal appearance ENT: Present: mucous membranes moist - Routine Neck Exam Present: full ROM - Routine Respiratory Exam Present: CTAB - Routine Cardiovascular Exam Cardiovascular: Present: RRR, S1, S2 - Routine Abdominal Exam Present: soft, nontender - Routine Rectal Exam Patient deferred: digital exam - Routine Extremities Exam Present: nontender - Routine Back/Spine/Pelvis Exam Back/Spine: Present: full ROM - Routine Skin Exam Present: intact - Routine Neurological Exam Present: alert, oriented X3, vision grossly intact - Detailed Neurological Exam: Coma Scale Eye Opening: Spontaneous (4) - Routine Psychiatric Exam Present: normal affect Data - Labs CBC & Chem 7: 10/07/21 11:12 10/07/21 11:12 Assessment and Plan Patient Active problem list reviewed?: Yes (1) Gastric cancer Status: Inactive (2) Gastric cancer Problem details: Gastrectomy, omentectomy, esophagojejunostomy, Melyssa-en-Y for gastric cancer Status: Acute Assessment and plan: This is a pleasant 64-year-old lady with a history of diabetes and diverticulosis. She had epigastric pain, off and on for a few months. She tells me she had GERD symptoms however she stopped eating sweets and those resolved. This was about 13 years ago. She was started on omeprazole recently which has been helping. Back in February she was admitted with a bout of diverticulitis. CT scan of the abdomen revealed: 1. Short segment mural thickening and pericolonic infiltrative changes in the proximal descending colon most consistent with acute diverticulitis or short segment colitis as a definitive diverticulum is not seen. 2. Mild left pelvocaliectasis without obstructing abnormality could be secondary to left ureteropelvic junction stenosis. Left renal cysts demonstrate benign features. Nonobstructing right upper pole intrarenal calculus. 3. Mild free fluid in the pelvis is presumed secondary to the colonic findings. 4. Very small hiatal hernia. Subsequently an upper endoscopy and colonoscopy was arranged. This was done on 04/[address] Fields. Colonoscopy was negative however upper endoscopy revealed: Poorly differentiated carcinoma, in the stomach. Possibility of metastatic lobular carcinoma of the breast was raised. Her breast exam was normal however, she tells me she has not had a mammogram in about 20 years. As per NCCN guidelines workup for gastric carcinoma that is recommended includes: 1. PET scan. 2. Endoscopic ultrasound to determine if disease is early versus locally advanced stage. [facility]: No mammographic evidence of malignancy. I checked baseline labs, including the tumor markers: CEA 5.1, Ca 27.29 103. l proceeded with a PET scan for staging. This revealed: No foci of abnormal FDG activity are visualized. There are no abnormalities visualized suspicious for metastatic or other malignant lesions. l requested endoscopic ultrasound for exact pathological staging. This was scheduled at [facility], by Dr. Blanco. The area of abnormality was very subtle. He took several biopsies. Unfortunately they came back positive. She has seen Dr. Rajan, to consider surgery by minimally invasive method. It was decided to proceed with FLOT chemotherapy in the neoadjuvant setting. She was started on it a few months ago. She has tolerated it reasonably well. She had a CT scan of the chest abdomen pelvis on 10/19 which revealed: remarkable CT chest with no pulmonary nodule or mass. Right central venous port tip is in the distal SVC. Moderate sized hiatal hernia. There is a large stool in the colon suggestive of severe constipation. No abnormal sized abdominal lymph nodes seen. Distended urinary bladder. She underwent endoscopic ultrasound since imaging was not very helpful. This was done on November [address] Blanco. There were no lesions seen. The random biopsies of the stomach lining were negative. She then underwent surgery on 12/[address] Rajan. 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 Tumor site: Residual tumor most prominent along the greater curvature. Tumor size: A distinct tumor mass is not identified grossly. 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 Histologic type: Diffuse type(signet ring carcinoma.) Histologic grade: G3, poorly differentiated. Tumor extension: Tumor invades mucosa, submucosa, muscularis propria and subserosal connective tissue, extending to the peritoneal surface.(pT4a.) Margins: Final anastomotic do not appear negative for carcinoma. Residual carcinoma is identified in en face sections of the proximal margin.(discohesive tumor cells in the submucosa.) Treatment effect: Evident tumor regression but with extensive residual carcinoma, (partial response, score 2-3. LV I: Identified. Additional findings: Extensive tumor infiltrates omental adipose tissue and is present on the peritoneal surface,(pM1). Regional lymph nodes: Number examined: 5. Number positive: 2. Ancillary studies: HER2 fish testing is negative. Pathologic stage: Following preop neoadjuvant therapy. Primary tumor:ypN1. Metastatic disease:ypM1. She has recuperated from the surgery. Gradually advanced her diet. CEA level: 5.60, previously, 5.8, 4.40, prior to that. I discussed further treatment options with her. The plan was made to proceed with palliative chemotherapy, in the second-line setting, as delineated in the [place] trial. According to NCCN guidelines preferred regimen include: Paclitaxel 80 mg, on days 1, 8 and 15 + Ramucirumab 8 mg/kg, week 1 and 15 Q 28 days. l tried to see if I can substitute Abraxane for the paclitaxel. However unfortunately Abraxane was not available, then, from the cabinet builder. Overall she has been tolerating the treatment reasonably well. She had a CT scan of the chest abdomen pelvis on 07/12: Question postsurgical change to the stomach and small esophageal hernia. No definite mass appreciated. No enlarged lymph nodes. Stool throughout the colon suggestive of constipation. Question mild wall thickening or colitis of the cecum. She had an upper endoscopy on 06/[address] Fields which revealed: Small bowel biopsy: Normal limits, negative for celiac disease. Anastomotic biopsy: Squamocolumnar mucosa with moderate chronic active inflammation. There was no evidence for residual carcinoma. This is encouraging. She had her cycle 6 day 15, on 09/09. She tolerated the treatment reasonably well. Lately she had noticed some trouble swallowing. She was referred to GI for upper endoscopy with dilatation. She had that done on 09/[address] Kay: Balloon dilatation of esophageal jejunal anastomosis with a 19 mm CRE balloon was done. Upper esophagus then dilated to 18 mm with resistance felt and superficial tears noted with heme. No evidence for tumor in the gastric remnant. She had a PET scan last week, on 09/29: 1. There is a focus of increased FDG activity in the right anterior aspect of the tongue with no associated CT abnormality. The finding is nonspecific, but was not present on the prior PET CT scan. This could be physiological muscular activity in the tongue, but the asymmetry and intensity is suspicious for a lesion at this site. Correlation with direct visualization is recommended for initial follow-up. This could also be further characterized with IV contrast enhanced CT scan of the neck soft tissues. 2. No other abnormalities suspicious for metastatic or other malignant lesions are noted. 3. Diffuse vascular calcifications including coronary. It is reassuring that the CT scan did not light up in the abdominal area. She does have the small ulcer under the right tongue border. PLAN: Since the CT scan, upper endoscopy and PET scan, are negative, she would like to take a break from chemotherapy. I have referred her to Dr. Kay to look at the tongue lesion. In the meantime will give her Magic mouthwash to see if it is some sort of an infectious lesion. I will see her back in a month's time. In the meantime she will continue to focus on nutrition and keeping her strength up. Thank you, CC: Dr. Clark. Dr. Fields. Dr. De Leon. Dr. Rajan - Time Spent With Patient Time Spent with Patient (in minutes): 30
[2021-10-07 11:15] LABS: MANUAL DIFF FLAG NO
[2021-10-07 11:36] LABS: Basophils Percent Auto 0.4 % (0-2); Hematocrit 31.7 % (37.0-47.0); Imm Gran Abs Auto 0.04 X10*3/uL (0.00-0.03); Imm Gran Pct Auto 0.9 % (0.0-0.4); Lymphocytes Absolute Auto 0.6 X10*3/uL (1.2-4.9); Lymphocytes Percent Auto 13.4 % (20-40); Mean Corpuscular HGB Conc 31.5 g/dl (31.0-35.0); Mean Corpuscular Hemoglobin 31.6 pg (27.0-33.0); Mean Corpuscular Volume 100.3 fL (80.0-98.0); Mean Platelet Volume 11.5 fL (9.4-12.3); Monocytes Absolute Auto 0.3 X10*3/uL (0.1-1.2); Monocytes Percent Auto 5.8 % (2-11); Neutrophils Absolute Auto 3.6 x10*3/uL (2.0-8.3); Neutrophils Percent Auto 79.5 % (45-73); Red Blood Count 3.16 X10*6/uL (4.20-5.50); Red Cell Distribution Width 14.3 % (11.0-16.0); White Blood Count 4.5 X10*3/uL (4.8-10.8)
[2021-10-07 11:37] LABS: Platelet Count 89 X10*3/uL (160-400)
[2021-10-07 11:40] LABS: Alanine Aminotransferase 16 U/L (0-31); Albumin Level 3.3 g/dL (3.5-5.0); Alkaline Phosphatase 90 U/L (39-117); Anion Gap 11 (12-20); Aspartate Amino Transferase 25 U/L (5-31); Bilirubin Total 0.2 mg/dL (0.0-1.0); Blood Urea Nitrogen 9 mg/dL (9-16); Calcium 8.9 mg/dL (8.4-10.2); Carbon Dioxide 27 mmol/L (22-29); Chloride 106 mmol/L (96-108); Creatinine Clr Calc Pharmacy 90.8; Estimated Glomerular Filt Rate > 60; Glucose Random 61 mg/dL (60-115); Sodium 140 mmol/L (135-145); Total Protein 5.5 g/dL (6.5-8.0)
--- NOTE | 2021-11-04 09:29 | HE.ONCSEC ---
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 ( HENCE WAS UNABLE TO LEAVE A VOICEMAIL )
[2021-11-05 10:15] VITALS: BP 162/67; PULSE 72; RESP 14; TEMP 36.2; O2SAT 100
[2021-11-05 10:46] LABS: Basophils Percent Auto 0.4 % (0-2); Eosinophils Percent Auto 0.4 % (0-4); Hematocrit 28.6 % (37.0-47.0); Hemoglobin 9.3 g/dl (12.0-16.0); Lymphocytes Absolute Auto 0.6 X10*3/uL (1.2-4.9); Lymphocytes Percent Auto 27.5 % (20-40); MANUAL DIFF FLAG SCAN; Mean Corpuscular HGB Conc 32.5 g/dl (31.0-35.0); Mean Corpuscular Hemoglobin 32.1 pg (27.0-33.0); Mean Corpuscular Volume 98.6 fL (80.0-98.0); Mean Platelet Volume 10.2 fL (9.4-12.3); Monocytes Absolute Auto 0.2 X10*3/uL (0.1-1.2); Monocytes Percent Auto 7.4 % (2-11); Neutrophils Absolute Auto 1.5 x10*3/uL (2.0-8.3); Neutrophils Percent Auto 64.3 % (45-73); Platelet Count 103 X10*3/uL (160-400); Red Cell Distribution Width 13.4 % (11.0-16.0); SCAN SMEAR FLAG 1
[2021-11-05 10:48] LABS: White Blood Count 2.3 X10*3/uL (4.8-10.8)
--- NOTE | 2021-11-05 11:05 | PM.HEMONCPN ---
Medical Summary - Medical Summary Date of Service: 11/05/21 Chief complaint: follow-up for: History of gastric carcinoma. Medical Summary: DIAGNOSIS: GASTRIC CARCINOMA. CURRENT THERAPY: 1. FLOT CHEMOTHERAPY, completed 4 cycles, day 15. 2. She then underwent surgery on 12/[address] Rajan. She had total gastrectomy lymphadenectomy and omentectomy, James-en-Y reconstruction with end-to-side esophagojejunostomy(retro colic.) Pathology revealed: Adeno carcinoma, residual, diffuse type, poorly differentiated, with metastases to regional lymph nodes and omentum. Tumor site: Residual tumor most prominent along the greater curvature. Tumor size: A distinct tumor mass is not identified grossly. 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 Histologic type: Diffuse type(signet ring carcinoma.) Histologic grade: G3, poorly differentiated. Tumor extension: Tumor invades mucosa, submucosa, muscularis propria and subserosal connective tissue, extending to the peritoneal surface.(pT4a.) Margins: Final anastomotic do not appear negative for carcinoma. Residual carcinoma is identified in en face sections of the proximal margin.(discohesive tumor cells in the submucosa.) Treatment effect: Evident tumor regression but with extensive residual carcinoma, (partial response, score 2-3. LV I: Identified. Additional findings: Extensive tumor infiltrates omental adipose tissue and is present on the peritoneal surface,(pM1). Regional lymph nodes: Number examined: 5. Number positive: 2. Ancillary studies: HER2 fish testing is negative. Pathologic stage: Following preop neoadjuvant therapy. Primary tumor:ypN1. Metastatic disease:ypM1. 3. Completed Taxol and Ramucirumab, cycle 6 day 15 on 09/09. Interval History Interval history: Sheryl Espinoza is a pleasant 65 year old lady here for a follow-up visit. She tells me that she was doing really well, when Monday she noted epigastric pain. It does not matter whatever she eats, it happens. She has noticed that when she takes care of it 1 hour prior to eating it goes well. She denies any dysphagia heartburn nausea or vomiting. She had a few episodes of diarrhea when she took the zinc. This was given for her tongue lesion. She does not take it when she has to go out. She has been referred to ENT in [place] but is waiting for the appointment. Lately she has had some constipation. She has lost some weight. Her energy level has been getting better. Denies any chest pain or trouble with breathing. She is in good spirits. Rest of the review of systems is unremarkable. She is trying to be more active. She does try to work out for 20 minutes every day. Recent history: She had started noticing some difficulty swallowing, again. She had previously had this but it had improved after her endoscopy and dilatation back in June. She was referred to GI for upper endoscopy with dilatation. She had that done on 09/[address] Kay: Balloon dilatation of esophageal jejunal anastomosis with a 19 mm CRE balloon was done. Upper esophagus then dilated to 18 mm with resistance felt and superficial tears noted with heme. No evidence for tumor in the gastric remnant. Since the procedure, her swallowing has gotten better. She has started gaining weight. She denies heartburn or indigestion. It is difficult for her to eat, especially at one sitting. She tries to snack here in there. This has been going on since the surgery. She takes famotidine in the morning. Sometimes she gets epigastric pain for which she takes oxycodone. She uses it sparingly, especially at night. That is only way she can sleep 4-5 hours. Tylenol is not that effective. PAST HISTORY: She had surgery done. She initially had an endoscopic ultrasound by Dr. Blanco, in November,. There were no lesions seen. The random biopsies of the stomach lining were negative. She then underwent surgery on 12/[address] Rajan. She had total gastrectomy lymphadenectomy and omentectomy, James-en-Y reconstruction with end-to-side esophagojejunostomy(retro colic.) Pathology revealed: Adeno carcinoma, residual, diffuse type, poorly differentiated, with metastases to regional lymph nodes and omentum. Tumor site: Residual tumor most prominent along the greater curvature. Tumor size: A distinct tumor mass is not identified grossly. 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 Histologic type: Diffuse type(signet ring carcinoma.) Histologic grade: G3, poorly differentiated. Tumor extension: Tumor invades mucosa, submucosa, muscularis propria and subserosal connective tissue, extending to the peritoneal surface.(pT4a.) Margins: Final anastomotic do not appear negative for carcinoma. Residual carcinoma is identified in en face sections of the proximal margin.(discohesive tumor cells in the submucosa.) Treatment effect: Evident tumor regression but with extensive residual carcinoma, (partial response, score 2-3. LV I: Identified. Additional findings: Extensive tumor infiltrates omental adipose tissue and is present on the peritoneal surface,(pM1). Regional lymph nodes: Number examined: 5. Number positive: 2. Ancillary studies: HER2 fish testing is negative. Pathologic stage: Following preop neoadjuvant therapy. Primary tumor:ypN1. Metastatic disease:ypM1. Previous history: She was admitted to the hospital back towards the end of February,, with symptoms of acute diverticulitis and UTI. She had presented with 3 days history of left flank pain and dysuria. Abdominal pain was accompanied by decreased appetite nausea and 1 episode of vomiting on 02/27. CT scan of the abdomen revealed: 1.Short segment mural thickening and pericolonic infiltrative changes in the proximal descending colon most consistent with acute diverticulitis or short segment colitis. 2. Mild left pelvo- caliectasis, without obstructing abnormality could be secondary to left ureteropelvic junction stenosis. Left renal cyst demonstrated benign features. Nonobstructing right upper pole intrarenal calculus. 3. mild free fluid in the pelvis is presumed secondary to colonic findings. 4. Very small hiatus hernia. Patient was started on IV antibiotics and admitted. In addition she was noted to have a urinary tract infection. Blood cultures showed Gram-negative rods, likely bacteremia from the UTI. She did note improvement from abdominal pain from 10/10 to 4/10 the following day. She also complained of heartburn and odynophagia of for a few days. She was seen by GI. Recommendation was to continue IV antibiotics until abdominal pain improves. Start oral omeprazole for heartburn and odynophagia. To be scheduled for an upper endoscopy and colonoscopy, in 5-6 weeks time, after resolution of the diverticulitis. This was done on 04/24. Pathology revealed: Stomach body biopsy: Poorly differentiated carcinoma. Morphology and immunophenotype are not 100% specific but raise the possibility of metastatic lobular carcinoma of the breast. Other primary sources include gastric and other upper GI locations. ROS: She denies easy fatigability. Her appetite is good. She has lost some weight. One hundred fifty down to 135 lb. Denies headache no dizziness. No chest pain or trouble breathing. No cough nor shortness of breath no chest pain. She had some dyspepsia type symptoms when she was in house. The omeprazole has taken care of these. Occasional cramping prior to bowel movement. Denies diarrhea. Denies gross blood in the stools. She never had a previous colonoscopy. She had recent UTI symptoms. These have resolved. She has arthritis involving her knees. Denies any focal weakness. No depression/anxiety. Family history: Dad had pancreatic cancer at the age of 67. Mom had non-Hodgkin's lymphoma. 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 She has 3 children. She smoked as a teenager. She rarely drinks. Review of Systems - Constitutional Reports no additional constitutional complaints - Eyes Reports no additional eye complaints - ENT Reports no additional ear, nose, mouth, and throat complaints - Cardiovascular Reports no additional cardiovascular complaints - Respiratory Reports no additional respiratory complaints - Gastrointestinal Reports no additional gastrointestinal complaints - Genitourinary Reports no additional female genitourinary complaints - Musculoskeletal Reports no additional musculoskeletal complaints - Integumentary/Breasts Skin/Breast: Reports no additional skin complaints - Neurologic Reports no additional neurologic complaints, Reports hearing normal, Reports weakness - Psychiatric Reports no additional psychiatric complaints - Endocrine Reports no additional endocrine complaints - Hematologic/Lymphatic Reports no additional hematologic/lymphatic complaints - Allergic/Immunologic Reports no additional allergic/immunologic complaints [facility] Medical History: Medical History (Last Reviewed 11/05/21 @ 10:30 by Clover Thomson CMA) History of cellulitis Hx of diverticulitis of colon Hypercholesterolemia Lab test negative for COVID-19 virus Type 2 diabetes mellitus with hyperglycemia Functional capacity: independent ambulation Patient : No Family History: Family History (Last Reviewed 11/05/21 @ 10:30 by Clover Thomson CMA) Father Pancreatic cancer Mother NHL (non-Hodgkin's lymphoma) Maternal Grandfather Prostate cancer Maternal Grandmother Diabetes Heart disease Paternal Grandfather Diabetes Son Asthma Surgical History: Surgical History (Last Reviewed 11/05/21 @ 10:30 by Clover Thomson CMA) H/O tubal ligation History of esophagogastroduodenoscopy (EGD) History of gastrectomy Hx of appendectomy Hx of colonoscopy Hx of tonsillectomy S/P cholecystectomy Onset Date: ~1988 S/P right knee arthroscopy Onset Date: ~2002 Social History: Social History (Last Reviewed 11/05/21 @ 10:31 by Clover Thomson CMA) Living Situation History: Household Members: Spouse Household Members: Children Housing: House Are you a primary primary care pediatrician to a significant other at home: No Do you presently have visiting nurse or other home services: No Alcohol History Details: 1. How often do you have a drink containing alcohol?: a. Never Currently Displaying Signs/Symptoms of Alcohol Withdrawal: No Tobacco History: Patient Tobacco Use Status: Never used Tobacco Second Hand Smoke Exposure: No Substance Use History: Use of substances other than those prescribed or required for medical reasons: No Domestic Abuse History: Have you been hit, kicked, punched, or otherwise hurt by someone within the past year? 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 Performance Status ECOG Performance Status: 0 Home Medications and Allergies Home Medications Medication Instructions Recorded Confirmed Type multivitamin 1 tab PO DAILY 05/11/20 11/05/21 History sucralfate 1 gram tablet 1 tab PO TID 11/05/21 11/05/21 History Allergies Allergy/AdvReac Type Severity Reaction Status Date / Time meperidine [From Demerol] Allergy Severe Swelling Verified 11/05/21 10:31 Exam Vital signs: Vital Signs Temp 97.2 F 11/05/21 10:15 Pulse 72 11/05/21 10:15 Resp 14 11/05/21 10:15 BP 162/67 H 11/05/21 10:15 Pulse Ox 100 11/05/21 10:15 O2 Del Method 11/05/21 10:15 Intake & Output 11/04/21 11/05/21 11/05/21 18:59 06:59 18:59 Other: Weight 53.1 kg Weight in Grams 89507 Weight 53.1 kg BMI result Body Mass Index 20.0 - Constitutional Present: no acute distress - Routine HEENT Exam Head: Present: normal inspection Eye: Present: normal appearance ENT: Present: mucous membranes moist - Routine Neck Exam Present: full ROM - Routine Respiratory Exam Present: CTAB - Routine Cardiovascular Exam Cardiovascular: Present: RRR, S1, S2 - Routine Abdominal Exam Present: soft, nontender - Routine Rectal Exam Patient deferred: digital exam - Routine Extremities Exam Present: nontender - Routine Back/Spine/Pelvis Exam Back/Spine: Present: full ROM - Routine Skin Exam Present: intact - Routine Neurological Exam Present: alert, oriented X3, vision grossly intact - Detailed Neurological Exam: Coma Scale Eye Opening: Spontaneous (4) - Routine Psychiatric Exam Present: normal affect Data - Labs CBC & Chem 7: 11/05/21 10:25 11/05/21 10:25 Assessment and Plan Patient Active problem list reviewed?: Yes (1) Gastric cancer Status: Inactive (2) Gastric cancer Problem details: Gastrectomy, omentectomy, esophagojejunostomy, James-en-Y for gastric cancer Status: Acute Assessment and plan: This is a pleasant 64-year-old lady with a history of diabetes and diverticulosis. She had epigastric pain, off and on for a few months. She tells me she had GERD symptoms however she stopped eating sweets and those resolved. This was about 13 years ago. She was started on omeprazole recently which has been helping. Back in February she was admitted with a bout of diverticulitis. CT scan of the abdomen revealed: 1. Short segment mural thickening and pericolonic infiltrative changes in the proximal descending colon most consistent with acute diverticulitis or short segment colitis as a definitive diverticulum is not seen. 2. Mild left pelvocaliectasis without obstructing abnormality could be secondary to left ureteropelvic junction stenosis. Left renal cysts demonstrate benign features. Nonobstructing right upper pole intrarenal calculus. 3. Mild free fluid in the pelvis is presumed secondary to the colonic findings. 4. Very small hiatal hernia. Subsequently an upper endoscopy and colonoscopy was arranged. This was done on 04/[address] Fields. Colonoscopy was negative however upper endoscopy revealed: Poorly differentiated carcinoma, in the stomach. Possibility of metastatic lobular carcinoma of the breast was raised. Her breast exam was normal however, she tells me she has not had a mammogram in about 20 years. As per NCCN guidelines workup for gastric carcinoma that is recommended includes: 1. PET scan. 2. Endoscopic ultrasound to determine if disease is early versus locally advanced stage. [facility]: No mammographic evidence of malignancy. I checked baseline labs, including the tumor markers: CEA 5.1, Ca 27.29 103. l proceeded with a PET scan for staging. This revealed: No foci of abnormal FDG activity are visualized. There are no abnormalities visualized suspicious for metastatic or other malignant lesions. l requested endoscopic ultrasound for exact pathological staging. This was scheduled at [facility], by Dr. Blanco. The area of abnormality was very subtle. He took several biopsies. Unfortunately they came back positive. She has seen Dr. Rajan, to consider surgery by minimally invasive method. It was decided to proceed with FLOT chemotherapy in the neoadjuvant setting. She was started on it a few months ago. She has tolerated it reasonably well. She had a CT scan of the chest abdomen pelvis on 10/19 which revealed: remarkable CT chest with no pulmonary nodule or mass. Right central venous port tip is in the distal SVC. Moderate sized hiatal hernia. There is a large stool in the colon suggestive of severe constipation. No abnormal sized abdominal lymph nodes seen. Distended urinary bladder. She underwent endoscopic ultrasound since imaging was not very helpful. This was done on November [address] Blanco. There were no lesions seen. The random biopsies of the stomach lining were negative. She then underwent surgery on 12/[address] Rajan. She had total gastrectomy lymphadenectomy and omentectomy, James-en-Y reconstruction with end-to-side esophagojejunostomy(retro colic.) Pathology revealed: Adeno carcinoma, residual, diffuse type, poorly differentiated, with metastases to regional lymph nodes and omentum. Tumor site: Residual tumor most prominent along the greater curvature. Tumor size: A distinct tumor mass is not identified grossly. 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 Histologic type: Diffuse type(signet ring carcinoma.) Histologic grade: G3, poorly differentiated. Tumor extension: Tumor invades mucosa, submucosa, muscularis propria and subserosal connective tissue, extending to the peritoneal surface.(pT4a.) Margins: Final anastomotic do not appear negative for carcinoma. Residual carcinoma is identified in en face sections of the proximal margin.(discohesive tumor cells in the submucosa.) Treatment effect: Evident tumor regression but with extensive residual carcinoma, (partial response, score 2-3. LV I: Identified. Additional findings: Extensive tumor infiltrates omental adipose tissue and is present on the peritoneal surface,(pM1). Regional lymph nodes: Number examined: 5. Number positive: 2. Ancillary studies: HER2 fish testing is negative. Pathologic stage: Following preop neoadjuvant therapy. Primary tumor:ypN1. Metastatic disease:ypM1. She has recuperated from the surgery. Gradually advanced her diet. CEA level: 5.60, previously, 5.8, 4.40, prior to that. I discussed further treatment options with her. The plan was made to proceed with palliative chemotherapy, in the second-line setting, as delineated in the [place] trial. According to NCCN guidelines preferred regimen include: Paclitaxel 80 mg, on days 1, 8 and 15 + Ramucirumab 8 mg/kg, week 1 and 15 Q 28 days. l tried to see if I can substitute Abraxane for the paclitaxel. However unfortunately Abraxane was not available, then, from the lath tier. Overall she has been tolerating the treatment reasonably well. She had a CT scan of the chest abdomen pelvis on 07/12: Question postsurgical change to the stomach and small esophageal hernia. No definite mass appreciated. No enlarged lymph nodes. Stool throughout the colon suggestive of constipation. Question mild wall thickening or colitis of the cecum. She had an upper endoscopy on 06/[address] Fields which revealed: Small bowel biopsy: Normal limits, negative for celiac disease. Anastomotic biopsy: Squamocolumnar mucosa with moderate chronic active inflammation. There was no evidence for residual carcinoma. This is encouraging. She had her cycle 6 day 15, on 09/09. She tolerated the treatment reasonably well. Lately she had noticed some trouble swallowing. She was referred to GI for upper endoscopy with dilatation. She had that done on 09/[address] Kay: Balloon dilatation of esophageal jejunal anastomosis with a 19 mm CRE balloon was done. Upper esophagus then dilated to 18 mm with resistance felt and superficial tears noted with heme. No evidence for tumor in the gastric remnant. She had a PET scan last week, on 05/25: 1. There is a focus of increased FDG activity in the right anterior aspect of the tongue with no associated CT abnormality. The finding is nonspecific, but was not present on the prior PET CT scan. This could be physiological muscular activity in the tongue, but the asymmetry and intensity is suspicious for a lesion at this site. Correlation with direct visualization is recommended for initial follow-up. This could also be further characterized with IV contrast enhanced CT scan of the neck soft tissues. 2. No other abnormalities suspicious for metastatic or other malignant lesions are noted. 3. Diffuse vascular calcifications including coronary. It is reassuring that the CT scan did not light up in the abdominal area. She does have the small ulcer under the right tongue border. EGD on 09/17: Findings: Larynx:? Normal Esophagus:? Tortuous esophagus with minimal contractions with retained food noted. fibrotic ring noted at esophagojejunal anastomosis.? Empiric baloon dilation of esophago-jejunal anstomosis with an 19 mm CRE balloon with no tear noted. Upper esophagus then dilated to 18 mm with resistance felt and superficial tear noted with heme. Stomach: surgically removed Jejunum: Afferent and efferent limbs of james loop were examined and appeared normal. Intervention: Balloon dilation as noted above Impression/Findings: esophgeal dysmotility with ineffective to minimal contraction PLAN: stick to pureed diet with generous fluid intake with meals if sx persist then can refer for esophgeal manometry, might benefit from reglan or motegrity if its primarily a motility issue CEA 3.70. Since the CT scan, upper endoscopy and PET scan, are negative, she wanted to take a break from chemotherapy. I referred her to Dr. Kay to look at the tongue lesion. He referred her for ENT consultation. Meanwhile to try zinc. I gave her Magic mouthwash to see if it is some sort of an infectious lesion. PLAN: She mentions abdominal pain after eating for the past 4 days. She has esophageal dysmotility on EGD. May need to have manometry done. Trial of Reglan or Motegrity She will discuss it further with Dr. Kay. She will return in a month's time. In the meantime she will continue to focus on nutrition and keeping her strength up. Thank you, CC: Dr. Clark. Dr. Fields. Dr. De Leon. Dr. Rajan - Time Spent With Patient Time Spent with Patient (in minutes): 30
[2021-11-05 11:15] LABS: Alanine Aminotransferase 15 U/L (0-31); Albumin Level 3.4 g/dL (3.5-5.0); Alkaline Phosphatase 73 U/L (39-117); Anion Gap 9 (12-20); Aspartate Amino Transferase 23 U/L (5-31); Bilirubin Total < 0.2 mg/dL (0.0-1.0); Blood Urea Nitrogen 11 mg/dL (9-16); Calcium 8.6 mg/dL (8.4-10.2); Carbon Dioxide 28 mmol/L (22-29); Chloride 107 mmol/L (96-108); Creatinine Clr Calc Pharmacy 92.1; Estimated Glomerular Filt Rate > 60; Potassium 3.8 mmol/L (3.3-5.1); Sodium 140 mmol/L (135-145); Total Protein 5.4 g/dL (6.5-8.0)
[2021-11-05 11:22] LABS: Glucose Random 59 mg/dL (60-115)
[2021-11-05 11:40] LABS: SLIDE REVIEW VERIFIED
--- NOTE | 2021-11-05 12:24 | MHC.HEMONCMA ---
Pt was in for follow up. Clinical summary reviewed and updated, VSS. Labs were drawn. Pt to return in 1 month.
--- NOTE | 2021-11-05 14:26 | MHC.HEMONC ---
Port accessed with good blood return noted. Lab draw done. Port flushed with heparin 500units and de-accessed. Seeing Dr Cisneros today for follow up.
[2021-12-24 09:54] VITALS: BP 168/72; PULSE 68; RESP 14; TEMP 36.2; O2SAT 99; BMI 19.2
--- NOTE | 2021-12-24 10:03 | PM.HEMONCPN ---
Medical Summary - Medical Summary Date of Service: 12/24/21 Chief complaint: Follow-up for: Gastric carcinoma. Medical Summary: DIAGNOSIS: GASTRIC CARCINOMA. CURRENT THERAPY: 1. FLOT CHEMOTHERAPY, completed 4 cycles, day 15. 2. She then underwent surgery on 12/[address] Rajan. She had total gastrectomy lymphadenectomy and omentectomy, James-en-Y reconstruction with end-to-side esophagojejunostomy(retro colic.) Pathology revealed: Adeno carcinoma, residual, diffuse type, poorly differentiated, with metastases to regional lymph nodes and omentum. Tumor site: Residual tumor most prominent along the greater curvature. Tumor size: A distinct tumor mass is not identified grossly. 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 Histologic type: Diffuse type(signet ring carcinoma.) Histologic grade: G3, poorly differentiated. Tumor extension: Tumor invades mucosa, submucosa, muscularis propria and subserosal connective tissue, extending to the peritoneal surface.(pT4a.) Margins: Final anastomotic do not appear negative for carcinoma. Residual carcinoma is identified in en face sections of the proximal margin.(discohesive tumor cells in the submucosa.) Treatment effect: Evident tumor regression but with extensive residual carcinoma, (partial response, score 2-3. LV I: Identified. Additional findings: Extensive tumor infiltrates omental adipose tissue and is present on the peritoneal surface,(pM1). Regional lymph nodes: Number examined: 5. Number positive: 2. Ancillary studies: HER2 fish testing is negative. Pathologic stage: Following preop neoadjuvant therapy. Primary tumor:ypN1. Metastatic disease:ypM1. 3. Completed Taxol and Ramucirumab, cycle 6 day 15 on 09/09. Interval History Interval history: Sheryl Espinoza is a pleasant 65 year old lady here for a follow-up visit. She tells me that she has been doing well. Today is a good day. Overall her energy level has improved. She has had a persistent sore on the tongue. It is not painful. She has an appointment with ENT in March. She tried think but that did not really help. She has noted intermittent dysphagia. She can swallow but it appears to sit in the middle of the chest. Sometimes some of it comes up. This happens 2 to 3 times a week. Last night she had some soup which came up. She is taking Carafate which appears to be helpful. She thinks if she did not take it it would happen almost on a daily basis. She denies any heartburn nausea or vomiting. She had a few episodes of diarrhea when she took the zinc. This was given for her tongue lesion. She does not take it when she has to go out. She has been referred to ENT in [place] but is waiting for the appointment. Her bowels are working. She has soft regular BMs. She has lost some weight. Denies any chest pain or trouble with breathing. She is in good spirits. Rest of the review of systems is unremarkable. She is trying to be more active. She does try to work out for 20 minutes every day. Previous history: Back in September, she had started noticing some difficulty swallowing, again. She had previously had this but it had improved after her endoscopy and dilatation back in June. She was referred to GI for upper endoscopy with dilatation. She had that done on 09/[address] Kay: Balloon dilatation of esophageal jejunal anastomosis with a 19 mm CRE balloon was done. Upper esophagus then dilated to 18 mm with resistance felt and superficial tears noted with heme. No evidence for tumor in the gastric remnant. Since the procedure, her swallowing has gotten better. She has started gaining weight. She denies heartburn or indigestion. It is difficult for her to eat, especially at one sitting. She tries to snack here in there. This has been going on since the surgery. She takes famotidine in the morning. Sometimes she gets epigastric pain for which she takes oxycodone. She uses it sparingly, especially at night. That is only way she can sleep 4-5 hours. Tylenol is not that effective. PAST HISTORY: She had surgery done. She initially had an endoscopic ultrasound by Dr. Blanco, in November,. There were no lesions seen. The random biopsies of the stomach lining were negative. She then underwent surgery on 12/[address] Rajan. She had total gastrectomy lymphadenectomy and omentectomy, James-en-Y reconstruction with end-to-side esophagojejunostomy(retro colic.) Pathology revealed: Adeno carcinoma, residual, diffuse type, poorly differentiated, with metastases to regional lymph nodes and omentum. Tumor site: Residual tumor most prominent along the greater curvature. Tumor size: A distinct tumor mass is not identified grossly. 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 Histologic type: Diffuse type(signet ring carcinoma.) Histologic grade: G3, poorly differentiated. Tumor extension: Tumor invades mucosa, submucosa, muscularis propria and subserosal connective tissue, extending to the peritoneal surface.(pT4a.) Margins: Final anastomotic do not appear negative for carcinoma. Residual carcinoma is identified in en face sections of the proximal margin.(discohesive tumor cells in the submucosa.) Treatment effect: Evident tumor regression but with extensive residual carcinoma, (partial response, score 2-3. LV I: Identified. Additional findings: Extensive tumor infiltrates omental adipose tissue and is present on the peritoneal surface,(pM1). Regional lymph nodes: Number examined: 5. Number positive: 2. Ancillary studies: HER2 fish testing is negative. Pathologic stage: Following preop neoadjuvant therapy. Primary tumor:ypN1. Metastatic disease:ypM1. Previous history: She was admitted to the hospital back towards the end of February,, with symptoms of acute diverticulitis and UTI. She had presented with 3 days history of left flank pain and dysuria. Abdominal pain was accompanied by decreased appetite nausea and 1 episode of vomiting on 02/27. CT scan of the abdomen revealed: 1.Short segment mural thickening and pericolonic infiltrative changes in the proximal descending colon most consistent with acute diverticulitis or short segment colitis. 2. Mild left pelvo- caliectasis, without obstructing abnormality could be secondary to left ureteropelvic junction stenosis. Left renal cyst demonstrated benign features. Nonobstructing right upper pole intrarenal calculus. 3. mild free fluid in the pelvis is presumed secondary to colonic findings. 4. Very small hiatus hernia. Patient was started on IV antibiotics and admitted. In addition she was noted to have a urinary tract infection. Blood cultures showed Gram-negative rods, likely bacteremia from the UTI. She did note improvement from abdominal pain from 10/10 to 4/10 the following day. She also complained of heartburn and odynophagia of for a few days. She was seen by GI. Recommendation was to continue IV antibiotics until abdominal pain improves. Start oral omeprazole for heartburn and odynophagia. To be scheduled for an upper endoscopy and colonoscopy, in 5-6 weeks time, after resolution of the diverticulitis. This was done on 04/24. Pathology revealed: Stomach body biopsy: Poorly differentiated carcinoma. Morphology and immunophenotype are not 100% specific but raise the possibility of metastatic lobular carcinoma of the breast. Other primary sources include gastric and other upper GI locations. ROS: She denies easy fatigability. Her appetite is good. She has lost some weight. One hundred fifty down to 135 lb. Denies headache no dizziness. No chest pain or trouble breathing. No cough nor shortness of breath no chest pain. She had some dyspepsia type symptoms when she was in house. The omeprazole has taken care of these. Occasional cramping prior to bowel movement. Denies diarrhea. Denies gross blood in the stools. She never had a previous colonoscopy. She had recent UTI symptoms. These have resolved. She has arthritis involving her knees. Denies any focal weakness. No depression/anxiety. Family history: Dad had pancreatic cancer at the age of 67. Mom had non-Hodgkin's lymphoma. 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 She has 3 children. She smoked as a teenager. She rarely drinks. Review of Systems - Constitutional Reports no additional constitutional complaints, Denies lack of energy, Denies malaise, Reports weight loss - Eyes Reports no additional eye complaints - ENT Reports no additional ear, nose, mouth, and throat complaints - Cardiovascular Reports no additional cardiovascular complaints - Respiratory Reports no additional respiratory complaints - Gastrointestinal Reports no additional gastrointestinal complaints, Denies constipation, Denies dyspepsia, Denies loose stools Comments: Dysphagia - Genitourinary Reports no additional female genitourinary complaints - Musculoskeletal Reports no additional musculoskeletal complaints - Integumentary/Breasts Skin/Breast: Reports no additional skin complaints - Neurologic Reports no additional neurologic complaints, Reports hearing normal, Reports weakness - Psychiatric Reports no additional psychiatric complaints - Endocrine Reports no additional endocrine complaints - Hematologic/Lymphatic Reports no additional hematologic/lymphatic complaints - Allergic/Immunologic Reports no additional allergic/immunologic complaints [facility] Medical History: Medical History (Last Reviewed 12/24/21 @ 09:58 by Clover Thomson CMA) History of cellulitis Hx of diverticulitis of colon Hypercholesterolemia Lab test negative for COVID-19 virus Type 2 diabetes mellitus with hyperglycemia Functional capacity: independent ambulation Patient : No Family History: Family History (Last Reviewed 12/24/21 @ 09:58 by Clover Thomson CMA) Father Pancreatic cancer Mother NHL (non-Hodgkin's lymphoma) Maternal Grandfather Prostate cancer Maternal Grandmother Diabetes Heart disease Paternal Grandfather Diabetes Son Asthma Surgical History: Surgical History (Last Reviewed 12/24/21 @ 09:58 by Clover Thomson CMA) H/O tubal ligation History of esophagogastroduodenoscopy (EGD) History of gastrectomy Hx of appendectomy Hx of colonoscopy Hx of tonsillectomy S/P cholecystectomy Onset Date: ~1988 S/P right knee arthroscopy Onset Date: ~2002 Social History: Social History (Last Reviewed 12/24/21 @ 09:58 by Clover Thomson CMA) Living Situation History: Household Members: Spouse Household Members: Children Housing: House Are you a primary home care and home health aides teacher to a significant other at home: No Do you presently have visiting nurse or other home services: No Alcohol History Details: 1. How often do you have a drink containing alcohol?: a. Never Currently Displaying Signs/Symptoms of Alcohol Withdrawal: No Tobacco History: Patient Tobacco Use Status: Never used Tobacco Second Hand Smoke Exposure: No Substance Use History: Use of substances other than those prescribed or required for medical reasons: No Domestic Abuse History: Have you been hit, kicked, punched, or otherwise hurt by someone within the past year? 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 Performance Status ECOG Performance Status: 1 Home Medications and Allergies Home Medications Medication Instructions Recorded Confirmed Type multivitamin 1 tab PO DAILY 05/11/20 12/24/21 History sucralfate 1 gram tablet 1 tab PO TID 11/05/21 12/24/21 History Allergies Allergy/AdvReac Type Severity Reaction Status Date / Time meperidine [From Demerol] Allergy Severe Swelling Verified 12/24/21 09:58 Exam Vital signs: Vital Signs Temp 97.1 F 12/24/21 09:54 Pulse 68 12/24/21 09:54 Resp 14 12/24/21 09:54 BP 168/72 H 12/24/21 09:54 Pulse Ox 99 12/24/21 09:54 O2 Del Method 12/24/21 09:54 Intake & Output 12/23/21 12/24/21 12/24/21 18:59 06:59 18:59 Other: Weight 50.8 kg Weight in Grams 91749 Weight 50.8 kg BMI result Body Mass Index 19.2 - Constitutional Present: no acute distress - Routine HEENT Exam Head: Present: normal inspection Eye: Present: normal appearance ENT: Present: mucous membranes moist - Routine Neck Exam Present: full ROM - Routine Respiratory Exam Present: CTAB - Routine Cardiovascular Exam Cardiovascular: Present: RRR, S1, S2 - Routine Abdominal Exam Present: soft, nontender - Routine Rectal Exam Patient deferred: digital exam - Routine Extremities Exam Present: nontender - Routine Back/Spine/Pelvis Exam Back/Spine: Present: full ROM - Routine Skin Exam Present: intact - Routine Neurological Exam Present: alert, oriented X3, vision grossly intact - Detailed Neurological Exam: Coma Scale Eye Opening: Spontaneous (4) - Routine Psychiatric Exam Present: normal affect Data - Labs CBC & Chem 7: 12/24/21 10:30 12/24/21 10:30 Assessment and Plan Patient Active problem list reviewed?: Yes (1) Gastric cancer Status: Inactive (2) Gastric cancer Problem details: Gastrectomy, omentectomy, esophagojejunostomy, James-en-Y for gastric cancer Status: Acute Assessment and plan: This is a pleasant 64-year-old lady with a history of diabetes and diverticulosis. She had epigastric pain, off and on for a few months. She tells me she had GERD symptoms however she stopped eating sweets and those resolved. This was about 13 years ago. She was started on omeprazole recently which has been helping. Back in February she was admitted with a bout of diverticulitis. CT scan of the abdomen revealed: 1. Short segment mural thickening and pericolonic infiltrative changes in the proximal descending colon most consistent with acute diverticulitis or short segment colitis as a definitive diverticulum is not seen. 2. Mild left pelvocaliectasis without obstructing abnormality could be secondary to left ureteropelvic junction stenosis. Left renal cysts demonstrate benign features. Nonobstructing right upper pole intrarenal calculus. 3. Mild free fluid in the pelvis is presumed secondary to the colonic findings. 4. Very small hiatal hernia. Subsequently an upper endoscopy and colonoscopy was arranged. This was done on 04/[address] Fields. Colonoscopy was negative however upper endoscopy revealed: Poorly differentiated carcinoma, in the stomach. Possibility of metastatic lobular carcinoma of the breast was raised. Her breast exam was normal however, she tells me she has not had a mammogram in about 20 years. As per NCCN guidelines workup for gastric carcinoma that is recommended includes: 1. PET scan. 2. Endoscopic ultrasound to determine if disease is early versus locally advanced stage. She was sent [facility] to the [facility] to have a mammogram: No mammographic evidence of malignancy. I checked baseline labs, including the tumor markers: CEA 5.1, Ca 27.29 103. l proceeded with a PET scan for staging. This revealed: No foci of abnormal FDG activity are visualized. There are no abnormalities visualized suspicious for metastatic or other malignant lesions. l requested endoscopic ultrasound for exact pathological staging. This was scheduled at [facility], by Dr. Blanco. The area of abnormality was very subtle. He took several biopsies. Unfortunately they came back positive. She has seen Dr. Rajan, to consider surgery by minimally invasive method. It was decided to proceed with FLOT chemotherapy in the neoadjuvant setting. She was started on it a few months ago. She has tolerated it reasonably well. She had a CT scan of the chest abdomen pelvis on 10/19 which revealed: remarkable CT chest with no pulmonary nodule or mass. Right central venous port tip is in the distal SVC. Moderate sized hiatal hernia. There is a large stool in the colon suggestive of severe constipation. No abnormal sized abdominal lymph nodes seen. Distended urinary bladder. She underwent endoscopic ultrasound since imaging was not very helpful. This was done on November [address] Blanco. There were no lesions seen. The random biopsies of the stomach lining were negative. She then underwent surgery on 12/[address] Rajan. She had total gastrectomy lymphadenectomy and omentectomy, James-en-Y reconstruction with end-to-side esophagojejunostomy(retro colic.) Pathology revealed: Adeno carcinoma, residual, diffuse type, poorly differentiated, with metastases to regional lymph nodes and omentum. Tumor site: Residual tumor most prominent along the greater curvature. Tumor size: A distinct tumor mass is not identified grossly. 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 Histologic type: Diffuse type(signet ring carcinoma.) Histologic grade: G3, poorly differentiated. Tumor extension: Tumor invades mucosa, submucosa, muscularis propria and subserosal connective tissue, extending to the peritoneal surface.(pT4a.) Margins: Final anastomotic do not appear negative for carcinoma. Residual carcinoma is identified in en face sections of the proximal margin.(discohesive tumor cells in the submucosa.) Treatment effect: Evident tumor regression but with extensive residual carcinoma, (partial response, score 2-3. LV I: Identified. Additional findings: Extensive tumor infiltrates omental adipose tissue and is present on the peritoneal surface,(pM1). Regional lymph nodes: Number examined: 5. Number positive: 2. Ancillary studies: HER2 fish testing is negative. Pathologic stage: Following preop neoadjuvant therapy. Primary tumor:ypN1. Metastatic disease:ypM1. She has recuperated from the surgery. Gradually advanced her diet. CEA level: 5.60, previously, 5.8, 4.40, prior to that. I discussed further treatment options with her. The plan was made to proceed with palliative chemotherapy, in the second-line setting, as delineated in the [place] trial. According to NCCN guidelines preferred regimen include: Paclitaxel 80 mg, on days 1, 8 and 15 + Ramucirumab 8 mg/kg, week 1 and 15 Q 28 days. l tried to see if I can substitute Abraxane for the paclitaxel. However unfortunately Abraxane was not available, then, from the neurosurgery spine physician. Overall she has been tolerating the treatment reasonably well. She had a CT scan of the chest abdomen pelvis on 07/12: Question postsurgical change to the stomach and small esophageal hernia. No definite mass appreciated. No enlarged lymph nodes. Stool throughout the colon suggestive of constipation. Question mild wall thickening or colitis of the cecum. She had an upper endoscopy on 06/[address] Fields which revealed: Small bowel biopsy: Normal limits, negative for celiac disease. Anastomotic biopsy: Squamocolumnar mucosa with moderate chronic active inflammation. There was no evidence for residual carcinoma. This is encouraging. She had her cycle 6 day 15, on 09/09. She tolerated the treatment reasonably well. Lately she had noticed some trouble swallowing. She was referred to GI for upper endoscopy with dilatation. She had that done on 09/[address] Kay: Balloon dilatation of esophageal jejunal anastomosis with a 19 mm CRE balloon was done. Upper esophagus then dilated to 18 mm with resistance felt and superficial tears noted with heme. No evidence for tumor in the gastric remnant. She had a PET scan last week, on 09/29: 1. There is a focus of increased FDG activity in the right anterior aspect of the tongue with no associated CT abnormality. The finding is nonspecific, but was not present on the prior PET CT scan. This could be physiological muscular activity in the tongue, but the asymmetry and intensity is suspicious for a lesion at this site. Correlation with direct visualization is recommended for initial follow-up. This could also be further characterized with IV contrast enhanced CT scan of the neck soft tissues. 2. No other abnormalities suspicious for metastatic or other malignant lesions are noted. 3. Diffuse vascular calcifications including coronary. It is reassuring that the CT scan did not light up in the abdominal area. She does have the small ulcer under the right tongue border. EGD on 09/17: Findings: Larynx:? Normal Esophagus:? Tortuous esophagus with minimal contractions with retained food noted. fibrotic ring noted at esophagojejunal anastomosis.? Empiric baloon dilation of esophago-jejunal anstomosis with an 19 mm CRE balloon with no tear noted. Upper esophagus then dilated to 18 mm with resistance felt and superficial tear noted with heme. Stomach: surgically removed Jejunum: Afferent and efferent limbs of james loop were examined and appeared normal. 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 today. On 11/05 it was 3.[address] scan, upper endoscopy and PET scan, are negative, she wanted to take a break from chemotherapy. I referred her to Dr. Kay to look at the tongue lesion. He referred her for ENT consultation. ENT appointment is in March. Meanwhile to try zinc. I gave her Magic mouthwash to see if it is some sort of an infectious lesion. She is doing well however has had recurrence of her dysphagia. Has occasional vomiting. PLAN: I talked to the GI office. They will have her scheduled for an upper endoscopy with dilatation in the near future. She was noted to have esophageal dysmotility on EGD. May need to have manometry done. That will be addressed by her GI is well. Meanwhile she may need a trial of Reglan or Motegrity. She will discuss it further with Dr. Kay. I sent a refill for her oxycodone. She will return in a month's time. Will decide if and when to restart chemotherapy based upon the findings at the endoscopy. She will continue to focus on nutrition and keeping her strength up. Thank you, CC: Dr. Clark. Dr. Fields. Dr. De Leon. Dr. Rajan - Time Spent With Patient Time Spent with Patient (in minutes): 30
[2021-12-24 10:35] LABS: MANUAL DIFF FLAG NO
[2021-12-24 10:37] LABS: Basophils Percent Auto 0.7 % (0-2); Eosinophils Absolute Auto 0.1 X10*3/uL (0.0-0.4); Eosinophils Percent Auto 2.7 % (0-4); Hematocrit 31.9 % (37.0-47.0); Hemoglobin 10.3 g/dl (12.0-16.0); Lymphocytes Absolute Auto 1.1 X10*3/uL (1.2-4.9); Lymphocytes Percent Auto 38.5 % (20-40); Mean Corpuscular HGB Conc 32.3 g/dl (31.0-35.0); Mean Corpuscular Hemoglobin 30.5 pg (27.0-33.0); Mean Corpuscular Volume 94.4 fL (80.0-98.0); Mean Platelet Volume 9.7 fL (9.4-12.3); Monocytes Absolute Auto 0.2 X10*3/uL (0.1-1.2); Monocytes Percent Auto 7.6 % (2-11); Neutrophils Absolute Auto 1.5 x10*3/uL (2.0-8.3); Neutrophils Percent Auto 50.5 % (45-73); Platelet Count 116 X10*3/uL (160-400); Red Blood Count 3.38 X10*6/uL (4.20-5.50); Red Cell Distribution Width 12.7 % (11.0-16.0); White Blood Count 2.9 X10*3/uL (4.8-10.8)
[2021-12-24 10:57] LABS: Alanine Aminotransferase 13 U/L (0-31); Alkaline Phosphatase 86 U/L (39-117); Anion Gap 12 (12-20); Aspartate Amino Transferase 23 U/L (5-31); Bilirubin Total 0.5 mg/dL (0.0-1.0); Blood Urea Nitrogen 12 mg/dL (9-16); Calcium 9.1 mg/dL (8.4-10.2); Carbon Dioxide 28 mmol/L (22-29); Chloride 106 mmol/L (96-108); Creatinine Clr Calc Pharmacy 76.5; Estimated Glomerular Filt Rate > 60; Glucose Random 62 mg/dL (60-115); Potassium 3.7 mmol/L (3.3-5.1); Sodium 142 mmol/L (135-145); Total Protein 6.1 g/dL (6.5-8.0)
--- NOTE | 2021-12-24 11:37 | MHC.HEMONCMA ---
Pt was in for follow up. Clinical summary reviewed and updated, VSS. Labs were drawn. Pt to return in 1 month.
--- NOTE | 2021-12-24 13:17 | MHC.HEMONC ---
Port accessed with blood return noted-labs drawn from port-specimen to lab. Port flushed with heparin and de accessed. Next appointment scheduled for 02/04/22. Pt aware of appointment
[2022-02-04 10:46] VITALS: BP 162/65; PULSE 90; RESP 14; TEMP 36.2; O2SAT 100; BMI 20.4
--- NOTE | 2022-02-04 11:03 | P.PNHO-ONC_ITS ---
Medical Summary - Medical Summary Date of Service: 02/04/22 Chief complaint: Follow-up for: Gastric carcinoma. Medical Summary: DIAGNOSIS: GASTRIC CARCINOMA. CURRENT THERAPY: 1. FLOT CHEMOTHERAPY, completed 4 cycles, day 15. 2. She then underwent surgery on 12/[address] Rajan. She had total gastrectomy lymphadenectomy and omentectomy, James-en-Y reconstruction with end-to-side esophagojejunostomy(retro colic.) Pathology revealed: Adeno carcinoma, residual, diffuse type, poorly differentiated, with metastases to regional lymph nodes and omentum. Tumor site: Residual tumor most prominent along the greater curvature. Tumor size: A distinct tumor mass is not identified grossly. 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 Histologic type: Diffuse type(signet ring carcinoma.) Histologic grade: G3, poorly differentiated. Tumor extension: Tumor invades mucosa, submucosa, muscularis propria and subserosal connective tissue, extending to the peritoneal surface.(pT4a.) Margins: Final anastomotic do not appear negative for carcinoma. Residual carcinoma is identified in en face sections of the proximal margin.(discohesive tumor cells in the submucosa.) Treatment effect: Evident tumor regression but with extensive residual carcinoma, (partial response, score 2-3. LV I: Identified. Additional findings: Extensive tumor infiltrates omental adipose tissue and is present on the peritoneal surface,(pM1). Regional lymph nodes: Number examined: 5. Number positive: 2. Ancillary studies: HER2 fish testing is negative. Pathologic stage: Following preop neoadjuvant therapy. Primary tumor:ypN1. Metastatic disease:ypM1. 3. Completed Taxol and Ramucirumab, cycle 6 day 15 on 09/09. Interval History Interval history: Sheryl Espinoza is a pleasant 66 year old lady here for a follow-up visit. She tells me that she has been doing reasonably, well. Overall she has good energy level. She has ongoing intermittent dysphagia. She can swallow but sometimes food appears to sit in the middle of the chest. Sometimes some of it comes up. This happens 2 to 3 times a week. Carafate appears to be helpful. She thinks if she did not take it it would happen almost on a daily basis. She denies any heartburn nausea or vomiting. She had a few episodes of diarrhea when she took the zinc, now resolved. Her bowels are working. She has soft regular BMs. She has lost some weight. Denies any chest pain or trouble with breathing. She is in good spirits. Rest of the review of systems is unremarkable. She is trying to be more active. She does try to work out for 20 minutes every day. She has been referred to ENT in [place] but is waiting for the appointment. Previous history: Back in September, she had started noticing some difficulty swallowing, again. She had previously had this but it had improved after her endoscopy and dilatation back in June. She was referred to GI for upper endoscopy with dilatation. She had that done on 09/[address] Kay: Balloon dilatation of esophageal jejunal anastomosis with a 19 mm CRE balloon was done. Upper esophagus then dilated to 18 mm with resistance felt and superficial tears noted with heme. No evidence for tumor in the gastric remnant. Since the procedure, her swallowing has gotten better. She has started gaining weight. She denies heartburn or indigestion. It is difficult for her to eat, especially at one sitting. She tries to snack here in there. This has been going on since the surgery. She takes famotidine in the morning. Sometimes she gets epigastric pain for which she takes oxycodone. She uses it sparingly, especially at night. That is only way she can sleep 4-5 hours. Tylenol is not that effective. PAST HISTORY: She had surgery done. She initially had an endoscopic ultrasound by Dr. Blanco, in November,. There were no lesions seen. The random biopsies of the stomach lining were negative. She then underwent surgery on 12/[address] Rajan. She had total gastrectomy lymphadenectomy and omentectomy, James-en-Y reconstruction with end-to-side esophagojejunostomy(retro colic.) Pathology revealed: Adeno carcinoma, residual, diffuse type, poorly differentiated, with metastases to regional lymph nodes and omentum. Tumor site: Residual tumor most prominent along the greater curvature. Tumor size: A distinct tumor mass is not identified grossly. 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 Histologic type: Diffuse type(signet ring carcinoma.) Histologic grade: G3, poorly differentiated. Tumor extension: Tumor invades mucosa, submucosa, muscularis propria and subserosal connective tissue, extending to the peritoneal surface.(pT4a.) Margins: Final anastomotic do not appear negative for carcinoma. Residual carcinoma is identified in en face sections of the proximal margin.(discohesive tumor cells in the submucosa.) Treatment effect: Evident tumor regression but with extensive residual carcinoma, (partial response, score 2-3. LV I: Identified. Additional findings: Extensive tumor infiltrates omental adipose tissue and is present on the peritoneal surface,(pM1). Regional lymph nodes: Number examined: 5. Number positive: 2. Ancillary studies: HER2 fish testing is negative. Pathologic stage: Following preop neoadjuvant therapy. Primary tumor:ypN1. Metastatic disease:ypM1. Previous history: She was admitted to the hospital back towards the end of February,, with symptoms of acute diverticulitis and UTI. She had presented with 3 days history of left flank pain and dysuria. Abdominal pain was accompanied by decreased appetite nausea and 1 episode of vomiting on 02/27. CT scan of the abdomen revealed: 1.Short segment mural thickening and pericolonic infiltrative changes in the proximal descending colon most consistent with acute diverticulitis or short segment colitis. 2. Mild left pelvo- caliectasis, without obstructing abnormality could be secondary to left ureteropelvic junction stenosis. Left renal cyst demonstrated benign features. Nonobstructing right upper pole intrarenal calculus. 3. mild free fluid in the pelvis is presumed secondary to colonic findings. 4. Very small hiatus hernia. Patient was started on IV antibiotics and admitted. In addition she was noted to have a urinary tract infection. Blood cultures showed Gram-negative rods, likely bacteremia from the UTI. She did note improvement from abdominal pain from 10/10 to 4/10 the following day. She also complained of heartburn and odynophagia of for a few days. She was seen by GI. Recommendation was to continue IV antibiotics until abdominal pain improves. Start oral omeprazole for heartburn and odynophagia. To be scheduled for an upper endoscopy and colonoscopy, in 5-6 weeks time, after resolution of the diverticulitis. This was done on 04/24. Pathology revealed: Stomach body biopsy: Poorly differentiated carcinoma. Morphology and immunophenotype are not 100% specific but raise the possibility of metastatic lobular carcinoma of the breast. Other primary sources include gastric and other upper GI locations. ROS: She denies easy fatigability. Her appetite is good. She has lost some weight. One hundred fifty down to 135 lb. Denies headache no dizziness. No chest pain or trouble breathing. No cough nor shortness of breath no chest pain. She had some dyspepsia type symptoms when she was in house. The omeprazole has taken care of these. Occasional cramping prior to bowel movement. Denies diarrhea. Denies gross blood in the stools. She never had a previous colonoscopy. She had recent UTI symptoms. These have resolved. She has arthritis involving her knees. Denies any focal weakness. No depression/anxiety. Family history: Dad had pancreatic cancer at the age of 67. Mom had non-Hodgkin's lymphoma. 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 She has 3 children. She smoked as a teenager. She rarely drinks. Review of Systems - Constitutional Reports no additional constitutional complaints, Denies fatigue, Denies lack of energy, Denies malaise, Reports weight gain, Denies weight loss - Eyes Reports no additional eye complaints - ENT Reports no additional ear, nose, mouth, and throat complaints - Cardiovascular Reports no additional cardiovascular complaints - Respiratory Reports no additional respiratory complaints - Gastrointestinal Reports no additional gastrointestinal complaints - Genitourinary Reports no additional female genitourinary complaints - Musculoskeletal Reports no additional musculoskeletal complaints - Integumentary/Breasts Skin/Breast: Reports no additional skin complaints - Neurologic Reports no additional neurologic complaints, Reports hearing normal, Reports weakness - Psychiatric Reports no additional psychiatric complaints - Endocrine Reports no additional endocrine complaints - Hematologic/Lymphatic Reports no additional hematologic/lymphatic complaints - Allergic/Immunologic Reports no additional allergic/immunologic complaints [facility] Medical History: Medical History (Last Reviewed 02/04/22 @ 10:49 by Clover Thomson CMA) History of cellulitis Hx of diverticulitis of colon Hypercholesterolemia Lab test negative for COVID-19 virus Type 2 diabetes mellitus with hyperglycemia Functional capacity: independent ambulation Patient : No Family History: Family History (Last Reviewed 02/04/22 @ 10:49 by Clover Thomson CMA) Father Pancreatic cancer Mother NHL (non-Hodgkin's lymphoma) Maternal Grandfather Prostate cancer Maternal Grandmother Diabetes Heart disease Paternal Grandfather Diabetes Son Asthma Surgical History: Surgical History (Last Reviewed 02/04/22 @ 10:49 by Clover Thomson CMA) H/O tubal ligation History of esophagogastroduodenoscopy (EGD) History of gastrectomy Hx of appendectomy Hx of colonoscopy Hx of tonsillectomy S/P cholecystectomy Onset Date: ~1988 S/P right knee arthroscopy Onset Date: ~2002 Social History: Social History (Last Reviewed 02/04/22 @ 10:49 by Clover Thomson CMA) Living Situation History: Household Members: Spouse Household Members: Children Housing: House Are you a primary rn homecare to a significant other at home: No Do you presently have visiting nurse or other home services: No Alcohol History Details: 1. How often do you have a drink containing alcohol?: a. Never Currently Displaying Signs/Symptoms of Alcohol Withdrawal: No Tobacco History: Patient Tobacco Use Status: Never used Tobacco Second Hand Smoke Exposure: No Substance Use History: Use of substances other than those prescribed or required for medical reasons : No Domestic Abuse History: Have you been hit, kicked, punched, or otherwise hurt by someone within the past year? 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 Performance Status ECOG Performance Status: 0 Home Medications and Allergies Home Medications Medication Instructions Recorded Confirmed Type multivitamin 1 tab PO DAILY 05/11/20 02/04/22 History sucralfate 1 gram tablet 1 tab PO TID 11/05/21 02/04/22 History Allergies Allergy/AdvReac Type Severity Reaction Status Date / Time meperidine [From Demerol] Allergy Severe Swelling Verified 02/04/22 10:49 Exam Vital signs: Vital Signs Temp 97.1 F 02/04/22 10:46 Pulse 90 02/04/22 10:46 Resp 14 02/04/22 10:46 BP 162/65 H 02/04/22 10:46 Pulse Ox 100 02/04/22 10:46 O2 Del Method 02/04/22 10:46 Intake & Output 02/03/22 02/04/22 02/04/22 18:59 06:59 18:59 Other: Weight 54 kg Weight in Grams [id number] Weight 54 kg BMI result Body Mass Index 20.4 - Constitutional Present: no acute distress - Routine HEENT Exam Head: Present: normal inspection Eye: Present: normal appearance ENT: Present: mucous membranes moist - Routine Neck Exam Present: full ROM - Routine Respiratory Exam Present: CTAB - Routine Cardiovascular Exam Cardiovascular: Present: RRR, S1, S2 - Routine Abdominal Exam Present: soft, nontender - Routine Rectal Exam Patient deferred: digital exam - Routine Extremities Exam Present: nontender - Routine Back/Spine/Pelvis Exam Back/Spine: Present: full ROM - Routine Skin Exam Present: intact - Routine Neurological Exam Present: alert, oriented X3, vision grossly intact - Detailed Neurological Exam: Coma Scale Eye Opening: Spontaneous (4) - Routine Psychiatric Exam Present: normal affect Data - Labs CBC & Chem 7: 02/04/22 11:00 02/04/22 11:00 Assessment and Plan Patient Active problem list reviewed?: Yes (1) Gastric cancer Status: Inactive (2) Gastric cancer Problem details: Gastrectomy, omentectomy, esophagojejunostomy, James-en-Y for gastric cancer Status: Acute Assessment and plan: This is a pleasant 64-year-old lady with a history of diabetes and diverticulosis. She had epigastric pain, off and on for a few months. She tells me she had GERD symptoms however she stopped eating sweets and those resolved. This was about 13 years ago. She was started on omeprazole recently which has been helping. Back in February she was admitted with a bout of diverticulitis. CT scan of the abdomen revealed: 1. Short segment mural thickening and pericolonic infiltrative changes in the proximal descending colon most consistent with acute diverticulitis or short segment colitis as a definitive diverticulum is not seen. 2. Mild left pelvocaliectasis without obstructing abnormality could be secondary to left ureteropelvic junction stenosis. Left renal cysts demonstrate benign features. Nonobstructing right upper pole intrarenal calculus. 3. Mild free fluid in the pelvis is presumed secondary to the colonic findings. 4. Very small hiatal hernia. Subsequently an upper endoscopy and colonoscopy was arranged. This was done on 04/[address] Fields. Colonoscopy was negative however upper endoscopy revealed: Poorly differentiated carcinoma, in the stomach. Possibility of metastatic lobular carcinoma of the breast was raised. Her breast exam was normal however, she tells me she has not had a mammogram in about 20 years. As per NCCN guidelines workup for gastric carcinoma that is recommended includes: 1. PET scan. 2. Endoscopic ultrasound to determine if disease is early versus locally advanced stage. She was sent over to the [facility] to have a mammogram: No mammographic evidence of malignancy. I checked baseline labs, including the tumor markers: CEA 5.1, Ca 27.29 103. l proceeded with a PET scan for staging. This revealed: No foci of abnormal FDG activity are visualized. There are no abnormalities visualized suspicious for metastatic or other malignant lesions. l requested endoscopic ultrasound for exact pathological staging. This was scheduled at [facility], by Dr. Blanco. The area of abnormality was very subtle. He took several biopsies. Unfortunately they came back positive. She has seen Dr. Rajan, to consider surgery by minimally invasive method. It was decided to proceed with FLOT chemotherapy in the neoadjuvant setting. She was started on it a few months ago. She has tolerated it reasonably well. She had a CT scan of the chest abdomen pelvis on 10/19 which revealed: remarkable CT chest with no pulmonary nodule or mass. Right central venous port tip is in the distal SVC. Moderate sized hiatal hernia. There is a large stool in the colon suggestive of severe constipation. No abnormal sized abdominal lymph nodes seen. Distended urinary bladder. She underwent endoscopic ultrasound since imaging was not very helpful. This was done on November [address] Blanco. There were no lesions seen. The random biopsies of the stomach lining were negative. She then underwent surgery on 12/[address] Rajan. She had total gastrectomy lymphadenectomy and omentectomy, James-en-Y reconstruction with end-to-side esophagojejunostomy(retro colic.) Pathology revealed: Adeno carcinoma, residual, diffuse type, poorly differentiated, with metastases to regional lymph nodes and omentum. Tumor site: Residual tumor most prominent along the greater curvature. Tumor size: A distinct tumor mass is not identified grossly. 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 Histologic type: Diffuse type(signet ring carcinoma.) Histologic grade: G3, poorly differentiated. Tumor extension: Tumor invades mucosa, submucosa, muscularis propria and subserosal connective tissue, extending to the peritoneal surface.(pT4a.) Margins: Final anastomotic do not appear negative for carcinoma. Residual carcinoma is identified in en face sections of the proximal margin.(discohesive tumor cells in the submucosa.) Treatment effect: Evident tumor regression but with extensive residual carcinoma, (partial response, score 2-3. LV I: Identified. Additional findings: Extensive tumor infiltrates omental adipose tissue and is present on the peritoneal surface,(pM1). Regional lymph nodes: Number examined: 5. Number positive: 2. Ancillary studies: HER2 fish testing is negative. Pathologic stage: Following preop neoadjuvant therapy. Primary tumor:ypN1. Metastatic disease:ypM1. She has recuperated from the surgery. Gradually advanced her diet. CEA level: 5.60, previously, 5.8, 4.40, prior to that. I discussed further treatment options with her. The plan was made to proceed with palliative chemotherapy, in the second-line setting, as delineated in the [place] trial. According to NCCN guidelines preferred regimen include: Paclitaxel 80 mg, on days 1, 8 and 15 + Ramucirumab 8 mg/kg, week 1 and 15 Q 28 days. l tried to see if I can substitute Abraxane for the paclitaxel. 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 Overall she has been tolerating the treatment reasonably well. She had a CT scan of the chest abdomen pelvis on 07/12: Question postsurgical change to the stomach and small esophageal hernia. No definite mass appreciated. No enlarged lymph nodes. Stool throughout the colon suggestive of constipation. Question mild wall thickening or colitis of the cecum. She had an upper endoscopy on 06/[address] Fields which revealed: Small bowel biopsy: Normal limits, negative for celiac disease. Anastomotic biopsy: Squamocolumnar mucosa with moderate chronic active inflammation. There was no evidence for residual carcinoma. This is encouraging. She had her cycle 6 day 15, on 09/09. She tolerated the treatment reasonably well. Lately she had noticed some trouble swallowing. She was referred to GI for upper endoscopy with dilatation. She had that done on 09/[address] Kay: Balloon dilatation of esophageal jejunal anastomosis with a 19 mm CRE balloon was done. Upper esophagus then dilated to 18 mm with resistance felt and superficial tears noted with heme. No evidence for tumor in the gastric remnant. She had a PET scan last week, on 09/29: 1. There is a focus of increased FDG activity in the right anterior aspect of the tongue with no associated CT abnormality. The finding is nonspecific, but was not present on the prior PET CT scan. This could be physiological muscular activity in the tongue, but the asymmetry and intensity is suspicious for a lesion at this site. Correlation with direct visualization is recommended for initial follow-up. This could also be further characterized with IV contrast enhanced CT scan of the neck soft tissues. 2. No other abnormalities suspicious for metastatic or other malignant lesions are noted. 3. Diffuse vascular calcifications including coronary. It is reassuring that the CT scan did not light up in the abdominal area. She does have the small ulcer under the right tongue border. EGD on 09/17: Findings: Larynx:? Normal Esophagus:? Tortuous esophagus with minimal contractions with retained food noted. fibrotic ring noted at esophagojejunal anastomosis.? Empiric baloon dilation of esophago-jejunal anstomosis with an 19 mm CRE balloon with no tear noted. Upper esophagus then dilated to 18 mm with resistance felt and superficial tear noted with heme. Stomach: surgically removed Jejunum: Afferent and efferent limbs of james loop were examined and appeared normal. 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 On 11/05 it was 3.70. Since the CT scan, upper endoscopy and PET scan, are negative, she wanted to take a break from chemotherapy. I referred her to Dr. Kay to look at the tongue lesion. He referred her for ENT consultation. ENT appointment is in March. Meanwhile to try zinc. I gave her Magic mouthwash to see if it is some sort of an infectious lesion. That has resolved. She is doing well however has had recurrence of her intermittent dysphagia. She even has occasional vomiting. CEA level: 3 today. PLAN: We called the GI office. They will have her scheduled for an upper endoscopy with dilatation in the near future. She was noted to have esophageal dysmotility on EGD. September need to have manometry done. That will be addressed by her GI is well. Meanwhile she may need a trial of Reglan. I sent a refill for her oxycodone. She will return in one month for a follow up.. Will decide if and when to restart chemotherapy based upon the findings at the endoscopy. She will continue to focus on nutrition to keep her strength up. Thank you, CC: Dr. Clark. Dr. Fields. Dr. De Leon. Dr. Rajan - Time Spent With Patient Time Spent with Patient (in minutes): 25
[2022-02-04 11:24] LABS: MANUAL DIFF FLAG NO
[2022-02-04 11:29] LABS: Basophils Percent Auto 0.7 % (0-2); Eosinophils Absolute Auto 0.1 X10*3/uL (0.0-0.4); Eosinophils Percent Auto 1.9 % (0-4); Hematocrit 31.7 % (37.0-47.0); Hemoglobin 10.2 g/dl (12.0-16.0); Lymphocytes Percent Auto 36.9 % (20-40); Mean Corpuscular HGB Conc 32.2 g/dl (31.0-35.0); Mean Corpuscular Hemoglobin 30.7 pg (27.0-33.0); Mean Corpuscular Volume 95.5 fL (80.0-98.0); Mean Platelet Volume 9.6 fL (9.4-12.3); Monocytes Absolute Auto 0.2 X10*3/uL (0.1-1.2); Monocytes Percent Auto 8.2 % (2-11); Neutrophils Absolute Auto 1.4 x10*3/uL (2.0-8.3); Neutrophils Percent Auto 52.3 % (45-73); Platelet Count 153 X10*3/uL (160-400); Red Blood Count 3.32 X10*6/uL (4.20-5.50); Red Cell Distribution Width 13.7 % (11.0-16.0); White Blood Count 2.7 X10*3/uL (4.8-10.8)
--- NOTE | 2022-02-04 12:02 | MHC.HEMONCMA ---
Pt was in for follow up. Clinical summary reviewed and updated, VSS. Labs were drawn. Pt to return in a few months. [facility] will be calling pt to set up an appt, pt is aware.
[2022-02-04 12:10] LABS: Alanine Aminotransferase 15 U/L (0-31); Albumin Level 4.2 g/dL (3.5-5.0); Alkaline Phosphatase 90 U/L (39-117); Anion Gap 14 (12-20); Aspartate Amino Transferase 24 U/L (5-31); Bilirubin Total 0.4 mg/dL (0.0-1.0); Blood Urea Nitrogen 13 mg/dL (9-16); Calcium 9.2 mg/dL (8.4-10.2); Carbon Dioxide 27 mmol/L (22-29); Chloride 104 mmol/L (96-108); Creatinine Clr Calc Pharmacy 79.9; Estimated Glomerular Filt Rate > 60; Glucose Random 63 mg/dL (60-115); Potassium 3.9 mmol/L (3.3-5.1); Sodium 141 mmol/L (135-145); Total Protein 6.3 g/dL (6.5-8.0)
--- NOTE | 2022-02-04 12:13 | MHC.HEMONC ---
Here for port flush and lab draw. Port accessed with good blood return. Samples sent to lab. Port flushed with saline and heparin and deaccessed. Pt aware of next appt.
--- NOTE | 2022-03-30 10:59 | MHC.HEMONC ---
Here for port flush. Port accessed with good blood return noted. Port flushed with heparin 500units and de-accessed. Next port flush scheduled for 05/23/22.
[2022-04-04 09:45] VITALS: BP 150/67; PULSE 73; RESP 12; TEMP 36.1; O2SAT 100; BMI 20.9
--- NOTE | 2022-04-04 10:00 | PM.HEMONCPN ---
Medical Summary - Medical Summary Date of Service: 04/04/22 Chief complaint: Follow-up for: Gastric carcinoma. Medical Summary: DIAGNOSIS: GASTRIC CARCINOMA. CURRENT THERAPY: 1. FLOT CHEMOTHERAPY, completed 4 cycles, day 15. 2. She then underwent surgery on 12/[address] Rajan. She had total gastrectomy lymphadenectomy and omentectomy, James-en-Y reconstruction with end-to-side esophagojejunostomy(retro colic.) Pathology revealed: Adeno carcinoma, residual, diffuse type, poorly differentiated, with metastases to regional lymph nodes and omentum. Tumor site: Residual tumor most prominent along the greater curvature. Tumor size: A distinct tumor mass is not identified grossly. 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 Histologic type: Diffuse type(signet ring carcinoma.) Histologic grade: G3, poorly differentiated. Tumor extension: Tumor invades mucosa, submucosa, muscularis propria and subserosal connective tissue, extending to the peritoneal surface.(pT4a.) Margins: Final anastomotic do not appear negative for carcinoma. Residual carcinoma is identified in en face sections of the proximal margin.(discohesive tumor cells in the submucosa.) Treatment effect: Evident tumor regression but with extensive residual carcinoma, (partial response, score 2-3. LV I: Identified. Additional findings: Extensive tumor infiltrates omental adipose tissue and is present on the peritoneal surface,(pM1). Regional lymph nodes: Number examined: 5. Number positive: 2. Ancillary studies: HER2 fish testing is negative. Pathologic stage: Following preop neoadjuvant therapy. Primary tumor:ypN1. Metastatic disease:ypM1. 3. Completed Taxol and Ramucirumab, cycle 6 day 15 on 09/09. Interval History Interval history: Sheryl Espinoza is a pleasant 66 year old lady here for a follow-up visit. She tells me that she has been doing reasonably, well. Overall she has good energy level. She had ongoing intermittent dysphagia. Sometimes food appeared to sit in the middle of the chest. Sometimes it would come up. This happened 2 to 3 times a week. Carafate was helpful. She then underwent an upper endoscopy with dilatation on 02/25, by Dr. Fields: Esophagus: Tortuous esophagus with increased tertiary contractions without stricture or ring. Normal appearing anastomosis and a fibrotic ring noted at the anastomotic site without narrowing - biopsied.? Empiric balloon dilation of esophago-jejunal anstomosis with a 20 mm (60F) CRE balloon x 60 seconds and no tear noted. Stomach:? Surgically removed Jejunum: Afferent and efferent limbs of james loop were examined and appeared normal. Intervention: Biopsies and balloon dilation as noted above Impression and Post Procedure Diagnosis: Endoscopy Findings: ESOPHAGUS: Tortuous esophagus with increased tertiary contractions without stricture or ring. Normal appearing anastomosis and a fibrotic ring noted at the anastomotic site without narrowing - biopsied.? Empiric baloon dilation of esophago-jejunal anstomosis with a 20 mm (60F) CRE balloon x 60 seconds and no tear noted. STOMACH: surgically removed Since then she has had improvement in her symptoms. Certain foods are bothersome. She has good energy level. She saw ENT for her tongue lesion. They did not feel it was serious. She denies any heartburn nausea or vomiting. She had a few episodes of diarrhea when she took the zinc, now resolved. Her bowels are working. She has soft regular BMs. She has lost some weight. Denies any chest pain or trouble with breathing. She is in good spirits. Rest of the review of systems is unremarkable. She is trying to be more active. She does try to work out for 20 minutes every day. She has been referred to ENT in [place] but is waiting for the appointment. Previous history: Back in September, she had started noticing some difficulty swallowing, again. She had previously had this but it had improved after her endoscopy and dilatation back in June. She was referred to GI for upper endoscopy with dilatation. She had that done on 09/[address] Kay: Balloon dilatation of esophageal jejunal anastomosis with a 19 mm CRE balloon was done. Upper esophagus then dilated to 18 mm with resistance felt and superficial tears noted with heme. No evidence for tumor in the gastric remnant. Since the procedure, her swallowing has gotten better. She has started gaining weight. She denies heartburn or indigestion. It is difficult for her to eat, especially at one sitting. She tries to snack here in there. This has been going on since the surgery. She takes famotidine in the morning. Sometimes she gets epigastric pain for which she takes oxycodone. She uses it sparingly, especially at night. That is only way she can sleep 4-5 hours. Tylenol is not that effective. PAST HISTORY: She had surgery done. She initially had an endoscopic ultrasound by Dr. Blanco, in November,. There were no lesions seen. The random biopsies of the stomach lining were negative. She then underwent surgery on 12/[address] Rajan. She had total gastrectomy lymphadenectomy and omentectomy, James-en-Y reconstruction with end-to-side esophagojejunostomy(retro colic.) Pathology revealed: Adeno carcinoma, residual, diffuse type, poorly differentiated, with metastases to regional lymph nodes and omentum. Tumor site: Residual tumor most prominent along the greater curvature. Tumor size: A distinct tumor mass is not identified grossly. 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 Histologic type: Diffuse type(signet ring carcinoma.) Histologic grade: G3, poorly differentiated. Tumor extension: Tumor invades mucosa, submucosa, muscularis propria and subserosal connective tissue, extending to the peritoneal surface.(pT4a.) Margins: Final anastomotic do not appear negative for carcinoma. Residual carcinoma is identified in en face sections of the proximal margin.(discohesive tumor cells in the submucosa.) Treatment effect: Evident tumor regression but with extensive residual carcinoma, (partial response, score 2-3. LV I: Identified. Additional findings: Extensive tumor infiltrates omental adipose tissue and is present on the peritoneal surface,(pM1). Regional lymph nodes: Number examined: 5. Number positive: 2. Ancillary studies: HER2 fish testing is negative. Pathologic stage: Following preop neoadjuvant therapy. Primary tumor:ypN1. Metastatic disease:ypM1. Previous history: She was admitted to the hospital back towards the end of February,, with symptoms of acute diverticulitis and UTI. She had presented with 3 days history of left flank pain and dysuria. Abdominal pain was accompanied by decreased appetite nausea and 1 episode of vomiting on 02/27. CT scan of the abdomen revealed: 1.Short segment mural thickening and pericolonic infiltrative changes in the proximal descending colon most consistent with acute diverticulitis or short segment colitis. 2. Mild left pelvo- caliectasis, without obstructing abnormality could be secondary to left ureteropelvic junction stenosis. Left renal cyst demonstrated benign features. Nonobstructing right upper pole intrarenal calculus. 3. mild free fluid in the pelvis is presumed secondary to colonic findings. 4. Very small hiatus hernia. Patient was started on IV antibiotics and admitted. In addition she was noted to have a urinary tract infection. Blood cultures showed Gram-negative rods, likely bacteremia from the UTI. She did note improvement from abdominal pain from 10/10 to 4/10 the following day. She also complained of heartburn and odynophagia of for a few days. She was seen by GI. Recommendation was to continue IV antibiotics until abdominal pain improves. Start oral omeprazole for heartburn and odynophagia. To be scheduled for an upper endoscopy and colonoscopy, in 5-6 weeks time, after resolution of the diverticulitis. This was done on 04/24. Pathology revealed: Stomach body biopsy: Poorly differentiated carcinoma. Morphology and immunophenotype are not 100% specific but raise the possibility of metastatic lobular carcinoma of the breast. Other primary sources include gastric and other upper GI locations. ROS: She denies easy fatigability. Her appetite is good. She has lost some weight. One hundred fifty down to 135 lb. Denies headache no dizziness. No chest pain or trouble breathing. No cough nor shortness of breath no chest pain. She had some dyspepsia type symptoms when she was in house. The omeprazole has taken care of these. Occasional cramping prior to bowel movement. Denies diarrhea. Denies gross blood in the stools. She never had a previous colonoscopy. She had recent UTI symptoms. These have resolved. She has arthritis involving her knees. Denies any focal weakness. No depression/anxiety. Family history: Dad had pancreatic cancer at the age of 67. Mom had non-Hodgkin's lymphoma. 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 She has 3 children. She smoked as a teenager. She rarely drinks. Review of Systems - Constitutional Reports no additional constitutional complaints, Reports weight gain - Eyes Reports no additional eye complaints - ENT Reports no additional ear, nose, mouth, and throat complaints - Cardiovascular Reports no additional cardiovascular complaints - Respiratory Reports no additional respiratory complaints - Gastrointestinal Reports no additional gastrointestinal complaints - Genitourinary Reports no additional female genitourinary complaints - Musculoskeletal Reports no additional musculoskeletal complaints - Integumentary/Breasts Skin/Breast: Reports no additional skin complaints - Neurologic Reports no additional neurologic complaints, Reports hearing normal, Reports weakness - Psychiatric Reports no additional psychiatric complaints - Endocrine Reports no additional endocrine complaints - Hematologic/Lymphatic Reports no additional hematologic/lymphatic complaints - Allergic/Immunologic Reports no additional allergic/immunologic complaints [facility] Medical History: Medical History (Last Reviewed 04/04/22 @ 09:48 by Clover Thomson CMA) History of cellulitis Hx of diverticulitis of colon Lab test negative for COVID-19 virus Type 2 diabetes mellitus with hyperglycemia Functional capacity: independent ambulation Patient : No Family History: Family History (Last Reviewed 04/04/22 @ 09:48 by Clover Thomson CMA) Father Pancreatic cancer Mother NHL (non-Hodgkin's lymphoma) Maternal Grandfather Prostate cancer Maternal Grandmother Diabetes Heart disease Paternal Grandfather Diabetes Son Asthma Surgical History: Surgical History (Last Reviewed 04/04/22 @ 09:48 by Clover Thomson CMA) H/O tubal ligation History of esophagogastroduodenoscopy (EGD) History of gastrectomy Hx of appendectomy Hx of colonoscopy Hx of tonsillectomy S/P cholecystectomy Onset Date: ~1988 S/P right knee arthroscopy Onset Date: ~2002 Social History: Social History (Last Updated 04/04/22 @ 09:48 by Clover Thomson CMA) Living Situation History: Household Members: Spouse Housing: House Are you a primary intensive care specialist to a significant other at home: No Do you presently have visiting nurse or other home services: No Alcohol History Details: 1. How often do you have a drink containing alcohol?: a. Never Currently Displaying Signs/Symptoms of Alcohol Withdrawal: No Tobacco History: Patient Tobacco Use Status: Never used Tobacco Second Hand Smoke Exposure: No Substance Use History: Use of substances other than those prescribed or required for medical reasons: No Domestic Abuse History: Have you been hit, kicked, punched, or otherwise hurt by someone within the past year? 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 Performance Status ECOG Performance Status: 0 Home Medications and Allergies Home Medications Medication Instructions Recorded Confirmed Type multivitamin 1 tab PO DAILY 05/11/20 04/04/22 History insulin glargine 100 unit/mL (3 10 unit subcut QPM 02/17/22 04/04/22 History mL) subcutaneous pen (Lantus Solostar U-100 Insulin) sucralfate 1 gram tablet 1 tab PO TID 02/17/22 02/25/22 History Allergies Allergy/AdvReac Type Severity Reaction Status Date / Time meperidine [From Demerol] Allergy Severe Swelling Verified 04/04/22 09:48 Exam Vital signs: Vital Signs Temp 97 F 04/04/22 09:45 Pulse 73 04/04/22 09:45 Resp 12 04/04/22 09:45 BP 150/67 H 04/04/22 09:45 Pulse Ox 100 04/04/22 09:45 O2 Del Method 04/04/22 09:45 Intake & Output 04/03/22 04/04/22 04/04/22 18:59 06:59 18:59 Other: Weight 55.2 kg [place] Weight in Grams 14376 Weight 55.2 kg BMI result Body Mass Index 20.9 - Constitutional Present: no acute distress - Routine HEENT Exam Head: Present: normal inspection Eye: Present: normal appearance ENT: Present: mucous membranes moist - Routine Neck Exam Present: full ROM - Routine Respiratory Exam Present: CTAB - Routine Cardiovascular Exam Cardiovascular: Present: RRR, S1, S2 - Routine Abdominal Exam Present: soft, nontender - Routine Rectal Exam Patient deferred: digital exam - Routine Extremities Exam Present: nontender - Routine Back/Spine/Pelvis Exam Back/Spine: Present: full ROM - Routine Skin Exam Present: intact - Routine Neurological Exam Present: alert, oriented X3, vision grossly intact - Detailed Neurological Exam: Coma Scale Eye Opening: Spontaneous (4) - Routine Psychiatric Exam Present: normal affect Data - Labs CBC & Chem 7: 04/04/22 10:05 04/04/22 10:05 Assessment and Plan Patient Active problem list reviewed?: Yes (1) Gastric cancer Status: Inactive (2) Gastric cancer Problem details: Gastrectomy, omentectomy, esophagojejunostomy, James-en-Y for gastric cancer Status: Acute Assessment and plan: This is a pleasant 64-year-old lady with a history of diabetes and diverticulosis. She had epigastric pain, off and on for a few months. She tells me she had GERD symptoms however she stopped eating sweets and those resolved. This was about 13 years ago. She was started on omeprazole recently which has been helping. Back in February she was admitted with a bout of diverticulitis. CT scan of the abdomen revealed: 1. Short segment mural thickening and pericolonic infiltrative changes in the proximal descending colon most consistent with acute diverticulitis or short segment colitis as a definitive diverticulum is not seen. 2. Mild left pelvocaliectasis without obstructing abnormality could be secondary to left ureteropelvic junction stenosis. Left renal cysts demonstrate benign features. Nonobstructing right upper pole intrarenal calculus. 3. Mild free fluid in the pelvis is presumed secondary to the colonic findings. 4. Very small hiatal hernia. Subsequently an upper endoscopy and colonoscopy was arranged. This was done on 04/[address] Fields. Colonoscopy was negative however upper endoscopy revealed: Poorly differentiated carcinoma, in the stomach. Possibility of metastatic lobular carcinoma of the breast was raised. Her breast exam was normal however, she tells me she has not had a mammogram in about 20 years. As per NCCN guidelines workup for gastric carcinoma that is recommended includes: 1. PET scan. 2. Endoscopic ultrasound to determine if disease is early versus locally advanced stage. [facility]: No mammographic evidence of malignancy. I checked baseline labs, including the tumor markers: CEA 5.1, Ca 27.29 103. l proceeded with a PET scan for staging. This revealed: No foci of abnormal FDG activity are visualized. There are no abnormalities visualized suspicious for metastatic or other malignant lesions. l requested endoscopic ultrasound for exact pathological staging. This was scheduled at [facility], by Dr. Blanco. The area of abnormality was very subtle. He took several biopsies. Unfortunately they came back positive. She has seen Dr. Rajan, to consider surgery by minimally invasive method. It was decided to proceed with FLOT chemotherapy in the neoadjuvant setting. She was started on it a few months ago. She has tolerated it reasonably well. She had a CT scan of the chest abdomen pelvis on 10/19 which revealed: remarkable CT chest with no pulmonary nodule or mass. Right central venous port tip is in the distal SVC. Moderate sized hiatal hernia. There is a large stool in the colon suggestive of severe constipation. No abnormal sized abdominal lymph nodes seen. Distended urinary bladder. She underwent endoscopic ultrasound since imaging was not very helpful. This was done on November [address] Blanco. There were no lesions seen. The random biopsies of the stomach lining were negative. She then underwent surgery on 12/[address] Rajan. She had total gastrectomy lymphadenectomy and omentectomy, James-en-Y reconstruction with end-to-side esophagojejunostomy(retro colic.) Pathology revealed: Adeno carcinoma, residual, diffuse type, poorly differentiated, with metastases to regional lymph nodes and omentum. Tumor site: Residual tumor most prominent along the greater curvature. Tumor size: A distinct tumor mass is not identified grossly. 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 Histologic type: Diffuse type(signet ring carcinoma.) Histologic grade: G3, poorly differentiated. Tumor extension: Tumor invades mucosa, submucosa, muscularis propria and subserosal connective tissue, extending to the peritoneal surface.(pT4a.) Margins: Final anastomotic do not appear negative for carcinoma. Residual carcinoma is identified in en face sections of the proximal margin.(discohesive tumor cells in the submucosa.) Treatment effect: Evident tumor regression but with extensive residual carcinoma, (partial response, score 2-3. LV I: Identified. Additional findings: Extensive tumor infiltrates omental adipose tissue and is present on the peritoneal surface,(pM1). Regional lymph nodes: Number examined: 5. Number positive: 2. Ancillary studies: HER2 fish testing is negative. Pathologic stage: Following preop neoadjuvant therapy. Primary tumor:ypN1. Metastatic disease:ypM1. She has recuperated from the surgery. Gradually advanced her diet. CEA level: 5.60, previously, 5.8, 4.40, prior to that. I discussed further treatment options with her. The plan was made to proceed with palliative chemotherapy, in the second-line setting, as delineated in the Blackey trial. According to NCCN guidelines preferred regimen include: Paclitaxel 80 mg, on days 1, 8 and 15 + Ramucirumab 8 mg/kg, week 1 and 15 Q 28 days. michael dubon to see if I can substitute Abraxane for the paclitaxel. However unfortunately Abraxane was not available, then, from the chemistry quality control technician. Overall she has been tolerating the treatment reasonably well. She had a CT scan of the chest abdomen pelvis on 07/12: Question postsurgical change to the stomach and small esophageal hernia. No definite mass appreciated. No enlarged lymph nodes. Stool throughout the colon suggestive of constipation. Question mild wall thickening or colitis of the cecum. She had an upper endoscopy on 06/[address] Fields which revealed: Small bowel biopsy: Normal limits, negative for celiac disease. Anastomotic biopsy: Squamocolumnar mucosa with moderate chronic active inflammation. There was no evidence for residual carcinoma. This is encouraging. She had her cycle 6 day 15, on 09/09. She tolerated the treatment reasonably well. Lately she had noticed some trouble swallowing. She was referred to GI for upper endoscopy with dilatation. She had that done on 09/[address] Kay: Balloon dilatation of esophageal jejunal anastomosis with a 19 mm CRE balloon was done. Upper esophagus then dilated to 18 mm with resistance felt and superficial tears noted with heme. No evidence for tumor in the gastric remnant. She had a PET scan last week, on 09/29: 1. There is a focus of increased FDG activity in the right anterior aspect of the tongue with no associated CT abnormality. The finding is nonspecific, but was not present on the prior PET CT scan. This could be physiological muscular activity in the tongue, but the asymmetry and intensity is suspicious for a lesion at this site. Correlation with direct visualization is recommended for initial follow-up. This could also be further characterized with IV contrast enhanced CT scan of the neck soft tissues. 2. No other abnormalities suspicious for metastatic or other malignant lesions are noted. 3. Diffuse vascular calcifications including coronary. It is reassuring that the CT scan did not light up in the abdominal area. She does have the small ulcer under the right tongue border. EGD on 09/17: Findings: Larynx:? Normal Esophagus:? Tortuous esophagus with minimal contractions with retained food noted. fibrotic ring noted at esophagojejunal anastomosis.? Empiric baloon dilation of esophago-jejunal anstomosis with an 19 mm CRE balloon with no tear noted. Upper esophagus then dilated to 18 mm with resistance felt and superficial tear noted with heme. Stomach: surgically removed Jejunum: Afferent and efferent limbs of james loop were examined and appeared normal. 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 On 11/05 it was 3.70. Since the CT scan, upper endoscopy and PET scan, are negative, she wanted to take a break from chemotherapy. I referred her to Dr. Kay to look at the tongue lesion. He referred her for ENT consultation. ENT appointment is in March. Meanwhile to try zinc. I gave her Magic mouthwash to see if it is some sort of an infectious lesion. That has resolved. She is doing well however has had recurrence of her intermittent dysphagia. She even has occasional vomiting. CEA level: 4.1 today, previously 3. She underwent an upper endoscopy with dilatation on 02/25. That has helped. Fortunately no residual carcinoma was seen in the stomach. PLAN: Will continue to monitor her. I sent a refill for her oxycodone. She will return in a couple of months for a follow up.. She will continue to focus on nutrition to keep her strength up. Thank you, CC: Dr. Clark. Dr. Fields. Dr. De Leon. Dr. Rajan - Time Spent With Patient Time Spent with Patient (in minutes): 30
[2022-04-04 10:33] LABS: Basophils Percent Auto 0.4 % (0-2); Eosinophils Absolute Auto 0.1 X10*3/uL (0.0-0.4); Eosinophils Percent Auto 2.8 % (0-4); Hematocrit 33.3 % (37.0-47.0); Hemoglobin 10.8 g/dl (12.0-16.0); Lymphocytes Percent Auto 39.1 % (20-40); Mean Corpuscular HGB Conc 32.4 g/dl (31.0-35.0); Mean Corpuscular Hemoglobin 30.3 pg (27.0-33.0); Mean Corpuscular Volume 93.5 fL (80.0-98.0); Mean Platelet Volume 9.9 fL (9.4-12.3); Monocytes Absolute Auto 0.2 X10*3/uL (0.1-1.2); Monocytes Percent Auto 8.5 % (2-11); Neutrophils Absolute Auto 1.2 x10*3/uL (2.0-8.3); Neutrophils Percent Auto 49.2 % (45-73); Platelet Count 152 X10*3/uL (160-400); Red Blood Count 3.56 X10*6/uL (4.20-5.50); SCAN SMEAR FLAG 1
[2022-04-04 10:50] LABS: White Blood Count 2.5 X10*3/uL (4.8-10.8)
[2022-04-04 10:51] LABS: MANUAL DIFF FLAG NO
[2022-04-04 11:27] LABS: Alanine Aminotransferase 18 U/L (0-31); Albumin Level 4.4 g/dL (3.5-5.0); Alkaline Phosphatase 110 U/L (39-117); Anion Gap 14 (12-20); Aspartate Amino Transferase 23 U/L (5-31); Bilirubin Total 0.4 mg/dL (0.0-1.0); Blood Urea Nitrogen 15 mg/dL (9-16); Calcium 9.8 mg/dL (8.4-10.2); Carbon Dioxide 26 mmol/L (22-29); Chloride 104 mmol/L (96-108); Creatinine Clr Calc Pharmacy 75.8; Estimated Glomerular Filt Rate > 60; Glucose Random 138 mg/dL (60-115); Potassium 4.3 mmol/L (3.3-5.1); Sodium 140 mmol/L (135-145); Total Protein 6.8 g/dL (6.5-8.0)
--- NOTE | 2022-04-04 16:31 | MHC.HEMONCMA ---
Pt was in for follow up. Clinical summary reviewed and updated, VSS. Labs were drawn. Pt to return in 3 months.
--- NOTE | 2022-06-02 11:22 | MHC.HEMONC ---
Here for port flush. Port accessed with good blood return noted. Flushed with heparin 500units and de-accessed. Tolerated procedure well. Pt does state she has had swelling in both legs since Saturday 05/27, [place] She is wearing support stockings and states the swelling is better. Dr Cisneros made aware. Pt encouraged to continue with support stockings and try to keep legs elevated. Next port flush scheduled for 07/05 with follow up.
[2022-07-05 09:00] VITALS: BP 171/85; PULSE 69; RESP 17; TEMP 36.6; O2SAT 100; BMI 22.6
--- NOTE | 2022-07-05 09:05 | PM.HEMONCPN ---
Medical Summary - Medical Summary Date of Service: 07/05/22 Chief complaint: FOLLOW-UP FOR: GASTRIC CARCINOMA. Primary Care Provider: Po. Medical Summary: DIAGNOSIS: GASTRIC CARCINOMA. CURRENT THERAPY: 1. FLOT CHEMOTHERAPY, completed 4 cycles, day 15. 2. She then underwent surgery on 12/[address] Rajan. 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 Tumor site: Residual tumor most prominent along the greater curvature. Tumor size: A distinct tumor mass is not identified grossly. 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 Histologic type: Diffuse type(signet ring carcinoma.) Histologic grade: G3, poorly differentiated. Tumor extension: Tumor invades mucosa, submucosa, muscularis propria and subserosal connective tissue, extending to the peritoneal surface.(pT4a.) Margins: Final anastomotic do not appear negative for carcinoma. Residual carcinoma is identified in en face sections of the proximal margin.(discohesive tumor cells in the submucosa.) Treatment effect: Evident tumor regression but with extensive residual carcinoma, (partial response, score 2-3. LV I: Identified. Additional findings: Extensive tumor infiltrates omental adipose tissue and is present on the peritoneal surface,(pM1). Regional lymph nodes: Number examined: 5. Number positive: 2. Ancillary studies: HER2 fish testing is negative. Pathologic stage: Following preop neoadjuvant therapy. Primary tumor:ypN1. Metastatic disease:ypM1. 3. Completed Taxol and Ramucirumab, cycle 6 day 15 on 09/09. Interval History Interval history: Sheryl Espinoza is a pleasant 66 year old lady here for a follow-up visit. She tells me that she has been doing very well. Her energy level is good. Denies any chest pain or trouble with breathing. She denies any heartburn nausea or vomiting. Certain foods are bothersome. When she eats bread or potatoes they seem to be difficult to swallow. She gets chest discomfort. In that case vomiting helps relieve the symptoms. Her bowels are working. She has soft regular BMs. She has lost some weight. She is in good spirits. Rest of the review of systems is unremarkable. She is trying to be more active. She does try to work out for 20 minutes every day. She saw ENT for her tongue lesion. They did not feel it was serious. INTERIM HISTORY: She had ongoing intermittent dysphagia. Sometimes food appeared to sit in the middle of the chest. Sometimes it would come up. This happened 2 to 3 times a week. Carafate was helpful. She then underwent an upper endoscopy with dilatation on 02/25, by Dr. Fields: Esophagus: Tortuous esophagus with increased tertiary contractions without stricture or ring. Normal appearing anastomosis and a fibrotic ring noted at the anastomotic site without narrowing - biopsied.? Empiric balloon dilation of esophago-jejunal anstomosis with a 20 mm (60F) CRE balloon x 60 seconds and no tear noted. Stomach:? Surgically removed Jejunum: Afferent and efferent limbs of melyssa loop were examined and appeared normal. Intervention: Biopsies and balloon dilation as noted above Impression and Post Procedure Diagnosis: Endoscopy Findings: ESOPHAGUS: Tortuous esophagus with increased tertiary contractions without stricture or ring. Normal appearing anastomosis and a fibrotic ring noted at the anastomotic site without narrowing - biopsied.? Empiric baloon dilation of esophago-jejunal anstomosis with a 20 mm (60F) CRE balloon x 60 seconds and no tear noted. STOMACH: surgically removed Since then she has had improvement in her symptoms. Previous history: Back in September, she had started noticing some difficulty swallowing, again. She had previously had this but it had improved after her endoscopy and dilatation back in June. She was referred to GI for upper endoscopy with dilatation. She had that done on 09/[address] Kay: Balloon dilatation of esophageal jejunal anastomosis with a 19 mm CRE balloon was done. Upper esophagus then dilated to 18 mm with resistance felt and superficial tears noted with heme. No evidence for tumor in the gastric remnant. Since the procedure, her swallowing has gotten better. She has started gaining weight. She denies heartburn or indigestion. It is difficult for her to eat, especially at one sitting. She tries to snack here in there. This has been going on since the surgery. She takes famotidine in the morning. Sometimes she gets epigastric pain for which she takes oxycodone. She uses it sparingly, especially at night. That is only way she can sleep 4-5 hours. Tylenol is not that effective. PAST HISTORY: She had surgery done. She initially had an endoscopic ultrasound by Dr. Blanco, in November,. There were no lesions seen. The random biopsies of the stomach lining were negative. She then underwent surgery on 12/[address] Rajan. 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 Tumor site: Residual tumor most prominent along the greater curvature. Tumor size: A distinct tumor mass is not identified grossly. 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 Histologic type: Diffuse type(signet ring carcinoma.) Histologic grade: G3, poorly differentiated. Tumor extension: Tumor invades mucosa, submucosa, muscularis propria and subserosal connective tissue, extending to the peritoneal surface.(pT4a.) Margins: Final anastomotic do not appear negative for carcinoma. Residual carcinoma is identified in en face sections of the proximal margin.(discohesive tumor cells in the submucosa.) Treatment effect: Evident tumor regression but with extensive residual carcinoma, (partial response, score 2-3. LV I: Identified. Additional findings: Extensive tumor infiltrates omental adipose tissue and is present on the peritoneal surface,(pM1). Regional lymph nodes: Number examined: 5. Number positive: 2. Ancillary studies: HER2 fish testing is negative. Pathologic stage: Following preop neoadjuvant therapy. Primary tumor:ypN1. Metastatic disease:ypM1. Previous history: She was admitted to the hospital back towards the end of February,, with symptoms of acute diverticulitis and UTI. She had presented with 3 days history of left flank pain and dysuria. Abdominal pain was accompanied by decreased appetite nausea and 1 episode of vomiting on 02/27. CT scan of the abdomen revealed: 1.Short segment mural thickening and pericolonic infiltrative changes in the proximal descending colon most consistent with acute diverticulitis or short segment colitis. 2. Mild left pelvo- caliectasis, without obstructing abnormality could be secondary to left ureteropelvic junction stenosis. Left renal cyst demonstrated benign features. Nonobstructing right upper pole intrarenal calculus. 3. mild free fluid in the pelvis is presumed secondary to colonic findings. 4. Very small hiatus hernia. Patient was started on IV antibiotics and admitted. In addition she was noted to have a urinary tract infection. Blood cultures showed Gram-negative rods, likely bacteremia from the UTI. She did note improvement from abdominal pain from 10/10 to 4/10 the following day. She also complained of heartburn and odynophagia of for a few days. She was seen by GI. Recommendation was to continue IV antibiotics until abdominal pain improves. Start oral omeprazole for heartburn and odynophagia. To be scheduled for an upper endoscopy and colonoscopy, in 5-6 weeks time, after resolution of the diverticulitis. This was done on 04/24. Pathology revealed: Stomach body biopsy: Poorly differentiated carcinoma. Morphology and immunophenotype are not 100% specific but raise the possibility of metastatic lobular carcinoma of the breast. Other primary sources include gastric and other upper GI locations. ROS: She denies easy fatigability. Her appetite is good. She has lost some weight. One hundred fifty down to 135 lb. Denies headache no dizziness. No chest pain or trouble breathing. No cough nor shortness of breath no chest pain. She had some dyspepsia type symptoms when she was in house. The omeprazole has taken care of these. Occasional cramping prior to bowel movement. Denies diarrhea. Denies gross blood in the stools. She never had a previous colonoscopy. She had recent UTI symptoms. These have resolved. She has arthritis involving her knees. Denies any focal weakness. No depression/anxiety. Family history: Dad had pancreatic cancer at the age of 67. Mom had non-Hodgkin's lymphoma. 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 She has 3 children. She smoked as a teenager. She rarely drinks. Review of Systems - Constitutional Reports system reviewed and no additional complaints, except as documented, Reports weight gain, Denies fatigue, Denies weakness - Eyes Reports system reviewed and no additional complaints, except as documented - ENT Reports system reviewed and no additional complaints, except as documented - Cardiovascular Reports system reviewed and no additional complaints, except as documented - Respiratory Reports no additional respiratory complaints - Gastrointestinal Reports system reviewed and no additional complaints, except as documented - Genitourinary Reports no additional female genitourinary complaints - Musculoskeletal Reports system reviewed and no additional complaints, except as documented - Integumentary/Breasts Skin/Breast: Reports no additional skin complaints - Neurologic Reports system reviewed and no additional complaints, except as documented, Reports hearing normal, Reports weakness - Psychiatric Reports system reviewed and no additional complaints, except as documented - Endocrine Reports no additional endocrine complaints - Hematologic/Lymphatic Reports system reviewed and no additional complaints, except as documented - Allergic/Immunologic Reports system reviewed and no additional complaints, except as documented [facility] Medical History: Medical History (Last Reviewed 04/04/22 @ 09:48 by Clover Thomson CMA) History of cellulitis Hx of diverticulitis of colon Lab test negative for COVID-19 virus Type 2 diabetes mellitus with hyperglycemia Functional capacity: independent ambulation Patient : No Family History: Family History (Last Reviewed 04/04/22 @ 09:48 by Clover Thomson CMA) Father Pancreatic cancer Mother NHL (non-Hodgkin's lymphoma) Maternal Grandfather Prostate cancer Maternal Grandmother Diabetes Heart disease Paternal Grandfather Diabetes Son Asthma Surgical History: Surgical History (Last Reviewed 04/04/22 @ 09:48 by Clover Thomson CMA) H/O tubal ligation History of esophagogastroduodenoscopy (EGD) History of gastrectomy Hx of appendectomy Hx of colonoscopy Hx of tonsillectomy S/P cholecystectomy Onset Date: ~1988 S/P right knee arthroscopy Onset Date: ~2002 Social History: Social History (Last Updated 04/04/22 @ 09:48 by Clover Thomson CMA) Living Situation History: Household Members: Spouse Housing: House Are you a primary customer care assistant to a significant other at home: No Do you presently have visiting nurse or other home services: No Alcohol History Details: 1. How often do you have a drink containing alcohol?: a. Never Currently Displaying Signs/Symptoms of Alcohol Withdrawal: No Tobacco History: Patient Tobacco Use Status: Never used Tobacco Second Hand Smoke Exposure: No Substance Use History: Use of substances other than those prescribed or required for medical reasons: No Domestic Abuse History: Have you been hit, kicked, punched, or otherwise hurt by someone within the past year? 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 Performance Status ECOG Performance Status: 0 Home Medications and Allergies Home Medications Medication Instructions Recorded Confirmed Type multivitamin 1 tab PO DAILY 05/11/20 07/05/22 History insulin glargine 100 unit/mL (3 10 unit subcut QPM 02/17/22 07/05/22 History mL) subcutaneous pen (Lantus Solostar U-100 Insulin) sucralfate 1 gram tablet 1 tab PO TID 02/17/22 07/05/22 History Allergies Allergy/AdvReac Type Severity Reaction Status Date / Time meperidine [From Demerol] Allergy Severe Swelling Verified 07/05/22 09:03 Exam Vital signs: Vital Signs Temp 97.8 F 07/05/22 09:00 Pulse 69 07/05/22 09:00 Resp 17 07/05/22 09:00 BP 171/85 H 07/05/22 09:00 Pulse Ox 100 07/05/22 09:00 O2 Del Method 07/05/22 09:00 Intake & Output 07/04/22 07/05/22 07/05/22 18:59 06:59 18:59 Other: Weight 59.7 kg Weight in Grams 63373 Weight 59.7 kg BMI result Body Mass Index 22.6 - Constitutional Present: no acute distress - Routine HEENT Exam Head: Present: normal inspection Eye: Present: normal appearance ENT: Present: mucous membranes moist - Routine Neck Exam Present: full ROM - Routine Respiratory Exam Present: CTAB - Routine Cardiovascular Exam Cardiovascular: Present: RRR, S1, S2 - Routine Abdominal Exam Present: soft, nontender - Routine Rectal Exam Patient deferred: digital exam - Routine Extremities Exam Present: nontender - Routine Back/Spine/Pelvis Exam Back/Spine: Present: full ROM - Routine Skin Exam Present: intact - Routine Neurological Exam Present: alert, oriented X3, vision grossly intact - Detailed Neurological Exam: Coma Scale Eye Opening: Spontaneous (4) - Routine Psychiatric Exam Present: normal affect Data - Labs CBC & Chem 7: 07/05/22 08:50 07/05/22 08:50 Assessment and Plan Patient Active problem list reviewed?: Yes (1) Gastric cancer Status: Inactive (2) Gastric cancer Problem details: Gastrectomy, omentectomy, esophagojejunostomy, Melyssa-en-Y for gastric cancer Status: Acute Assessment and plan: This is a pleasant 64-year-old lady with a history of diabetes and diverticulosis. She had epigastric pain, off and on for a few months. She tells me she had GERD symptoms however she stopped eating sweets and those resolved. This was about 13 years ago. She was started on omeprazole recently which has been helping. Back in February she was admitted with a bout of diverticulitis. CT scan of the abdomen revealed: 1. Short segment mural thickening and pericolonic infiltrative changes in the proximal descending colon most consistent with acute diverticulitis or short segment colitis as a definitive diverticulum is not seen. 2. Mild left pelvocaliectasis without obstructing abnormality could be secondary to left ureteropelvic junction stenosis. Left renal cysts demonstrate benign features. Nonobstructing right upper pole intrarenal calculus. 3. Mild free fluid in the pelvis is presumed secondary to the colonic findings. 4. Very small hiatal hernia. Subsequently an upper endoscopy and colonoscopy was arranged. This was done on 04/[address] Fields. Colonoscopy was negative however upper endoscopy revealed: Poorly differentiated carcinoma, in the stomach. Possibility of metastatic lobular carcinoma of the breast was raised. Her breast exam was normal however, she tells me she has not had a mammogram in about 20 years. As per NCCN guidelines workup for gastric carcinoma that is recommended includes: 1. PET scan. 2. Endoscopic ultrasound to determine if disease is early versus locally advanced stage. She was sent over to the [facility] to have a mammogram: No mammographic evidence of malignancy. I checked baseline labs, including the tumor markers: CEA 5.1, Ca 27.29 103. l proceeded with a PET scan for staging. This revealed: No foci of abnormal FDG activity are visualized. There are no abnormalities visualized suspicious for metastatic or other malignant lesions. l requested endoscopic ultrasound for exact pathological staging. This was scheduled at [facility], by Dr. Blanco. The area of abnormality was very subtle. He took several biopsies. Unfortunately they came back positive. She has seen Dr. Rajan, to consider surgery by minimally invasive method. It was decided to proceed with FLOT chemotherapy in the neoadjuvant setting. She was started on it a few months ago. She has tolerated it reasonably well. She had a CT scan of the chest abdomen pelvis on 10/19 which revealed: remarkable CT chest with no pulmonary nodule or mass. Right central venous port tip is in the distal SVC. Moderate sized hiatal hernia. There is a large stool in the colon suggestive of severe constipation. No abnormal sized abdominal lymph nodes seen. Distended urinary bladder. She underwent endoscopic ultrasound since imaging was not very helpful. This was done on November [address] Blanco. There were no lesions seen. The random biopsies of the stomach lining were negative. She then underwent surgery on 12/[address] Rajan. 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 Tumor site: Residual tumor most prominent along the greater curvature. Tumor size: A distinct tumor mass is not identified grossly. 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 Histologic type: Diffuse type(signet ring carcinoma.) Histologic grade: G3, poorly differentiated. Tumor extension: Tumor invades mucosa, submucosa, muscularis propria and subserosal connective tissue, extending to the peritoneal surface.(pT4a.) Margins: Final anastomotic do not appear negative for carcinoma. Residual carcinoma is identified in en face sections of the proximal margin.(discohesive tumor cells in the submucosa.) Treatment effect: Evident tumor regression but with extensive residual carcinoma, (partial response, score 2-3. LV I: Identified. Additional findings: Extensive tumor infiltrates omental adipose tissue and is present on the peritoneal surface,(pM1). Regional lymph nodes: Number examined: 5. Number positive: 2. Ancillary studies: HER2 fish testing is negative. Pathologic stage: Following preop neoadjuvant therapy. Primary tumor:ypN1. Metastatic disease:ypM1. She has recuperated from the surgery. Gradually advanced her diet. CEA level: 5.60, previously, 5.8, 4.40, prior to that. I discussed further treatment options with her. The plan was made to proceed with palliative chemotherapy, in the second-line setting, as delineated in the [place] trial. According to NCCN guidelines preferred regimen include: Paclitaxel 80 mg, on days 1, 8 and 15 + Ramucirumab 8 mg/kg, week 1 and 15 Q 28 days. l tried to see if I can substitute Abraxane for the paclitaxel. 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 Overall she has been tolerating the treatment reasonably well. She had a CT scan of the chest abdomen pelvis on 07/12: Question postsurgical change to the stomach and small esophageal hernia. No definite mass appreciated. No enlarged lymph nodes. Stool throughout the colon suggestive of constipation. Question mild wall thickening or colitis of the cecum. She had an upper endoscopy on 06/[address] Fields which revealed: Small bowel biopsy: Normal limits, negative for celiac disease. Anastomotic biopsy: Squamocolumnar mucosa with moderate chronic active inflammation. There was no evidence for residual carcinoma. This is encouraging. She had her cycle 6 day 15, on 09/09. She tolerated the treatment reasonably well. Lately she had noticed some trouble swallowing. She was referred to GI for upper endoscopy with dilatation. She had that done on 09/[address] Kay: Balloon dilatation of esophageal jejunal anastomosis with a 19 mm CRE balloon was done. Upper esophagus then dilated to 18 mm with resistance felt and superficial tears noted with heme. No evidence for tumor in the gastric remnant. She had a PET scan last week, on 09/29: 1. There is a focus of increased FDG activity in the right anterior aspect of the tongue with no associated CT abnormality. The finding is nonspecific, but was not present on the prior PET CT scan. This could be physiological muscular activity in the tongue, but the asymmetry and intensity is suspicious for a lesion at this site. Correlation with direct visualization is recommended for initial follow-up. This could also be further characterized with IV contrast enhanced CT scan of the neck soft tissues. 2. No other abnormalities suspicious for metastatic or other malignant lesions are noted. 3. Diffuse vascular calcifications including coronary. It is reassuring that the CT scan did not light up in the abdominal area. She does have the small ulcer under the right tongue border. EGD on 09/17: Findings: Larynx:? Normal Esophagus:? Tortuous esophagus with minimal contractions with retained food noted. fibrotic ring noted at esophagojejunal anastomosis.? Empiric baloon dilation of esophago-jejunal anstomosis with an 19 mm CRE balloon with no tear noted. Upper esophagus then dilated to 18 mm with resistance felt and superficial tear noted with heme. Stomach: surgically removed Jejunum: Afferent and efferent limbs of melyssa loop were examined and appeared normal. 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 On 11/05 it was 3.70. Since the CT scan, upper endoscopy and PET scan, are negative, she wanted to take a break from chemotherapy. I referred her to Dr. Kay to look at the tongue lesion. He referred her for ENT consultation. ENT appointment is in March. Meanwhile to try zinc. I gave her Magic mouthwash to see if it is some sort of an infectious lesion. That has resolved. She is doing well however has had recurrence of her intermittent dysphagia. She even has occasional vomiting. CEA level: 4.1 today, previously 3. She underwent an upper endoscopy with dilatation on 02/25/22. That had helped. Fortunately no residual carcinoma was seen in the stomach. She gets occasional dysphagia but that is related to certain foods. Avoiding bread and potatoes helps. PLAN: I offered to refer her for endoscopy and dilatation but she would like to wait. If symptoms worsen she will call me, to set it up. Will continue to monitor her. She will return in 3 months for a follow up.. She will continue to focus on nutrition to keep her strength up. Thank you, CC: Dr. Clark. Dr. Fields. Dr. De Leon. Dr. Rajan - Time Spent With Patient Time Spent with Patient (in minutes): 26
[2022-07-05 09:08] LABS: Basophils Percent Auto 0.4 % (0-2); Eosinophils Absolute Auto 0.1 X10*3/uL (0.0-0.4); Eosinophils Percent Auto 2.6 % (0-4); Hematocrit 30.3 % (37.0-47.0); Hemoglobin 9.8 g/dl (12.0-16.0); Lymphocytes Absolute Auto 0.9 X10*3/uL (1.2-4.9); Lymphocytes Percent Auto 37.4 % (20-40); MANUAL DIFF FLAG SCAN; Mean Corpuscular HGB Conc 32.3 g/dl (31.0-35.0); Mean Corpuscular Hemoglobin 29.9 pg (27.0-33.0); Mean Corpuscular Volume 92.4 fL (80.0-98.0); Mean Platelet Volume 10.9 fL (9.4-12.3); Monocytes Absolute Auto 0.2 X10*3/uL (0.1-1.2); Monocytes Percent Auto 8.5 % (2-11); Neutrophils Absolute Auto 1.2 x10*3/uL (2.0-8.3); Neutrophils Percent Auto 51.1 % (45-73); Platelet Count 132 X10*3/uL (160-400); Red Blood Count 3.28 X10*6/uL (4.20-5.50); Red Cell Distribution Width 13.1 % (11.0-16.0); SCAN SMEAR FLAG 1
[2022-07-05 09:10] LABS: White Blood Count 2.4 X10*3/uL (4.8-10.8)
--- NOTE | 2022-07-05 09:15 | MHC.HEMONC ---
Pt here for ONC follow up. Port accessed with blood return noted. Labs drawn from port-specimen to lab.Pt states she feels well today. States has occasional nausea and vomiting. States has pain in chest after eating bread or potatoes. States takes pain medication at times. Provider into see pt. Next port flush scheduled in 6 weeks. Follow up in 3 months. Discharge packet given
[2022-07-05 09:27] LABS: SLIDE REVIEW VERIFIED
--- NOTE | 2022-07-05 09:34 | MHC.HEMONC ---
Port accessed with good blood return noted. Lab draw done. Port flushed with heparin 500units and de-accessed. Next port flush scheduled for 6 weeks. Pt to see Dr Cisneros for follow up.
[2022-07-05 09:55] LABS: Alanine Aminotransferase 14 U/L (0-31); Alkaline Phosphatase 99 U/L (39-117); Anion Gap 12 (12-20); Aspartate Amino Transferase 23 U/L (5-31); Bilirubin Total 0.4 mg/dL (0.0-1.0); Blood Urea Nitrogen 10 mg/dL (9-16); Calcium 9.2 mg/dL (8.4-10.2); Carbon Dioxide 27 mmol/L (22-29); Chloride 108 mmol/L (96-108); Estimated Glomerular Filt Rate > 60; Glucose Random 96 mg/dL (60-115); Iron 49 mcg/dL (30-160); Percent Iron Saturation 14 % (15-50); Potassium 3.9 mmol/L (3.3-5.1); Sodium 143 mmol/L (135-145); Total Iron Binding Capacity 362 mcg/dL (228-428); Total Protein 6.1 g/dL (6.5-8.0); Unsaturated Iron Binding 313 ug/dL
[2022-07-05 10:38] LABS: Ferritin 14 ng/mL (10-250); Folate 18.3 ng/mL (> or = 4.0); Vitamin B12 > 2000 pg/mL (200-900)
--- NOTE | 2022-08-15 11:10 | MHC.HEMONC ---
Port accessed with good blood return. Flushed with saline and heparin then deaccessed. Pt aware of next appt, calendar provided.
--- NOTE | 2022-09-26 09:42 | PM.HEMONCPN ---
Medical Summary - Medical Summary Date of Service: 09/26/22 Chief complaint: Follow-up for: Gastric carcinoma. Primary Care Provider: Gabriel Woodard MD Medical Summary: DIAGNOSIS: GASTRIC CARCINOMA. CURRENT THERAPY: 1. FLOT CHEMOTHERAPY, completed 4 cycles, day 15. 2. She then underwent surgery on 12/[address] Rajan. 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 Tumor site: Residual tumor most prominent along the greater curvature. Tumor size: A distinct tumor mass is not identified grossly. 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 Histologic type: Diffuse type(signet ring carcinoma.) Histologic grade: G3, poorly differentiated. Tumor extension: Tumor invades mucosa, submucosa, muscularis propria and subserosal connective tissue, extending to the peritoneal surface.(pT4a.) Margins: Final anastomotic do not appear negative for carcinoma. Residual carcinoma is identified in en face sections of the proximal margin.(discohesive tumor cells in the submucosa.) Treatment effect: Evident tumor regression but with extensive residual carcinoma, (partial response, score 2-3. LV I: Identified. Additional findings: Extensive tumor infiltrates omental adipose tissue and is present on the peritoneal surface,(pM1). Regional lymph nodes: Number examined: 5. Number positive: 2. Ancillary studies: HER2 fish testing is negative. Pathologic stage: Following preop neoadjuvant therapy. Primary tumor:ypN1. Metastatic disease:ypM1. 3. Completed Taxol and Ramucirumab, cycle 6 day 15 on 09/09. Interval History Interval history: Sheryl Espinoza is a pleasant 66 year old lady here for a follow-up visit. She tells me that she has been doing rather well. Overall stable. She still has some problems eating. Depends upon what she takes. Sometimes it feels it is getting stuck in the mid chest. Occasionally she has belly pain. She has heartburn. Sometimes feels nauseous. Denies diarrhea. No gross blood in the stools. She has a good appetite. Her weight is stable. Her energy level is good. Denies any chest pain or trouble with breathing. She denies any heartburn nausea or vomiting. She is in good spirits. Rest of the review of systems is unremarkable. She is trying to be more active. She does try to work out for 20 minutes every day. INTERIM HISTORY: She saw ENT for her tongue lesion. They did not feel it was serious. She had ongoing intermittent dysphagia. Sometimes food appeared to sit in the middle of the chest. Sometimes it would come up. This happened 2 to 3 times a week. Carafate was helpful. She then underwent an upper endoscopy with dilatation on 02/25, by Dr. Fields: Esophagus: Tortuous esophagus with increased tertiary contractions without stricture or ring. Normal appearing anastomosis and a fibrotic ring noted at the anastomotic site without narrowing - biopsied.? Empiric balloon dilation of esophago-jejunal anstomosis with a 20 mm (60F) CRE balloon x 60 seconds and no tear noted. Stomach:? Surgically removed Jejunum: Afferent and efferent limbs of melyssa loop were examined and appeared normal. Intervention: Biopsies and balloon dilation as noted above Impression and Post Procedure Diagnosis: Endoscopy Findings: ESOPHAGUS: Tortuous esophagus with increased tertiary contractions without stricture or ring. Normal appearing anastomosis and a fibrotic ring noted at the anastomotic site without narrowing - biopsied.? Empiric baloon dilation of esophago-jejunal anstomosis with a 20 mm (60F) CRE balloon x 60 seconds and no tear noted. STOMACH: surgically removed Since then she has had improvement in her symptoms. Previous history: Back in September, she had started noticing some difficulty swallowing, again. She had previously had this but it had improved after her endoscopy and dilatation back in June. She was referred to GI for upper endoscopy with dilatation. She had that done on 09/[address] Kay: Balloon dilatation of esophageal jejunal anastomosis with a 19 mm CRE balloon was done. Upper esophagus then dilated to 18 mm with resistance felt and superficial tears noted with heme. No evidence for tumor in the gastric remnant. Since the procedure, her swallowing has gotten better. She has started gaining weight. She denies heartburn or indigestion. It is difficult for her to eat, especially at one sitting. She tries to snack here in there. This has been going on since the surgery. She takes famotidine in the morning. Sometimes she gets epigastric pain for which she takes oxycodone. She uses it sparingly, especially at night. That is only way she can sleep 4-5 hours. Tylenol is not that effective. PAST HISTORY: She had surgery done. She initially had an endoscopic ultrasound by Dr. Blanco, in November,. There were no lesions seen. The random biopsies of the stomach lining were negative. She then underwent surgery on 12/[address] Rajan. 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 Tumor site: Residual tumor most prominent along the greater curvature. Tumor size: A distinct tumor mass is not identified grossly. 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 Histologic type: Diffuse type(signet ring carcinoma.) Histologic grade: G3, poorly differentiated. Tumor extension: Tumor invades mucosa, submucosa, muscularis propria and subserosal connective tissue, extending to the peritoneal surface.(pT4a.) Margins: Final anastomotic do not appear negative for carcinoma. Residual carcinoma is identified in en face sections of the proximal margin.(discohesive tumor cells in the submucosa.) Treatment effect: Evident tumor regression but with extensive residual carcinoma, (partial response, score 2-3. LV I: Identified. Additional findings: Extensive tumor infiltrates omental adipose tissue and is present on the peritoneal surface,(pM1). Regional lymph nodes: Number examined: 5. Number positive: 2. Ancillary studies: HER2 fish testing is negative. Pathologic stage: Following preop neoadjuvant therapy. Primary tumor:ypN1. Metastatic disease:ypM1. Previous history: She was admitted to the hospital back towards the end of February,, with symptoms of acute diverticulitis and UTI. She had presented with 3 days history of left flank pain and dysuria. Abdominal pain was accompanied by decreased appetite nausea and 1 episode of vomiting on 02/27. CT scan of the abdomen revealed: 1.Short segment mural thickening and pericolonic infiltrative changes in the proximal descending colon most consistent with acute diverticulitis or short segment colitis. 2. Mild left pelvo- caliectasis, without obstructing abnormality could be secondary to left ureteropelvic junction stenosis. Left renal cyst demonstrated benign features. Nonobstructing right upper pole intrarenal calculus. 3. mild free fluid in the pelvis is presumed secondary to colonic findings. 4. Very small hiatus hernia. Patient was started on IV antibiotics and admitted. In addition she was noted to have a urinary tract infection. Blood cultures showed Gram-negative rods, likely bacteremia from the UTI. She did note improvement from abdominal pain from 10/10 to 4/10 the following day. She also complained of heartburn and odynophagia of for a few days. She was seen by GI. Recommendation was to continue IV antibiotics until abdominal pain improves. Start oral omeprazole for heartburn and odynophagia. To be scheduled for an upper endoscopy and colonoscopy, in 5-6 weeks time, after resolution of the diverticulitis. This was done on 04/24. Pathology revealed: Stomach body biopsy: Poorly differentiated carcinoma. Morphology and immunophenotype are not 100% specific but raise the possibility of metastatic lobular carcinoma of the breast. Other primary sources include gastric and other upper GI locations. Family history: Dad had pancreatic cancer at the age of 67. Mom had non-Hodgkin's lymphoma. 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 She has 3 children. She smoked as a teenager. She rarely drinks. Review of Systems - Constitutional Reports system reviewed and no additional complaints, except as documented, Reports weight gain, Denies anorexia, Denies lack of energy, Denies weakness, Denies weight loss - Eyes Reports system reviewed and no additional complaints, except as documented - ENT Reports system reviewed and no additional complaints, except as documented - Cardiovascular Reports system reviewed and no additional complaints, except as documented - Respiratory Reports no additional respiratory complaints - Gastrointestinal Reports system reviewed and no additional complaints, except as documented - Genitourinary Reports no additional female genitourinary complaints - Musculoskeletal Reports system reviewed and no additional complaints, except as documented - Integumentary/Breasts Skin/Breast: Reports no additional skin complaints - Neurologic Reports system reviewed and no additional complaints, except as documented, Reports hearing normal, Denies weakness - Psychiatric Reports system reviewed and no additional complaints, except as documented - Endocrine Reports no additional endocrine complaints - Hematologic/Lymphatic Reports system reviewed and no additional complaints, except as documented - Allergic/Immunologic Reports system reviewed and no additional complaints, except as documented [facility] Medical History: Medical History (Last Reviewed 09/26/22 @ 10:02 by Noe Escobar) History of cellulitis Hx of diverticulitis of colon Lab test negative for COVID-19 virus Type 2 diabetes mellitus with hyperglycemia Functional capacity: independent ambulation Patient : No Family History: Family History (Last Reviewed 09/26/22 @ 10:02 by Noe Escobar) Father Pancreatic cancer Mother NHL (non-Hodgkin's lymphoma) Maternal Grandfather Prostate cancer Maternal Grandmother Diabetes Heart disease Paternal Grandfather Diabetes Son Asthma Surgical History: Surgical History (Last Reviewed 09/26/22 @ 10:02 by Noe Escobar) H/O tubal ligation History of esophagogastroduodenoscopy (EGD) History of gastrectomy Hx of appendectomy Hx of colonoscopy Hx of tonsillectomy S/P cholecystectomy Onset Date: ~1988 S/P right knee arthroscopy Onset Date: ~2002 Social History: Social History (Last Reviewed 09/26/22 @ 10:02 by Noe Escobar) Living Situation History: Household Members: Spouse Housing: House Are you a primary farm or ranch animal caretaker to a significant other at home: No Do you presently have visiting nurse or other home services: No Alcohol History Details: 1. How often do you have a drink containing alcohol?: a. Never Currently Displaying Signs/Symptoms of Alcohol Withdrawal: No Tobacco History: Patient Tobacco Use Status: Never used Tobacco e-Cigarette/Vaping Use: Never Used Second Hand Smoke Exposure: No Substance Use History: Use of substances other than those prescribed or required for medical reasons: No Domestic Abuse History: Have you been hit, kicked, punched, or otherwise hurt by someone within the past year? 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 Performance Status ECOG Performance Status: 0 Home Medications and Allergies Home Medications Medication Instructions Recorded Confirmed Type multivitamin 1 tab PO DAILY 05/11/20 09/26/22 History sucralfate 1 gram tablet 1 tab PO TID 02/17/22 09/26/22 History Allergies Allergy/AdvReac Type Severity Reaction Status Date / Time meperidine [From Demerol] Allergy Severe Swelling Verified 09/26/22 10:02 Exam Vital signs: Vital Signs Temp 97.8 F 07/05/22 09:00 Pulse 69 07/05/22 09:00 Resp 17 07/05/22 09:00 BP 171/85 H 07/05/22 09:00 Pulse Ox 100 07/05/22 09:00 O2 Del Method Room Air 07/05/22 09:00 Weight 59.7 kg BMI result Body Mass Index 22.6 - Constitutional Present: no acute distress - Routine HEENT Exam Head: Present: normal inspection Eye: Present: normal appearance ENT: Present: mucous membranes moist - Routine Neck Exam Present: full ROM - Routine Respiratory Exam Present: CTAB - Routine Cardiovascular Exam Cardiovascular: Present: RRR, S1, S2 - Routine Abdominal Exam Present: soft, nontender - Routine Rectal Exam Patient deferred: digital exam - Routine Extremities Exam Present: nontender - Routine Back/Spine/Pelvis Exam Back/Spine: Present: full ROM - Routine Skin Exam Present: intact - Routine Neurological Exam Present: alert, oriented X3, vision grossly intact - Detailed Neurological Exam: Coma Scale Eye Opening: Spontaneous (4) - Routine Psychiatric Exam Present: normal affect Data - Labs CBC & Chem 7: 09/26/22 09:55 09/26/22 09:55 Assessment and Plan Patient Active problem list reviewed?: Yes (1) Gastric cancer Status: Inactive (2) Gastric cancer Problem details: Gastrectomy, omentectomy, esophagojejunostomy, Melyssa-en-Y for gastric cancer Status: Acute Assessment and plan: This is a pleasant 64-year-old lady with a history of diabetes and diverticulosis. She had epigastric pain, off and on for a few months. She tells me she had GERD symptoms however she stopped eating sweets and those resolved. This was about 13 years ago. She was started on omeprazole recently which has been helping. Back in February she was admitted with a bout of diverticulitis. CT scan of the abdomen revealed: 1. Short segment mural thickening and pericolonic infiltrative changes in the proximal descending colon most consistent with acute diverticulitis or short segment colitis as a definitive diverticulum is not seen. 2. Mild left pelvocaliectasis without obstructing abnormality could be secondary to left ureteropelvic junction stenosis. Left renal cysts demonstrate benign features. Nonobstructing right upper pole intrarenal calculus. 3. Mild free fluid in the pelvis is presumed secondary to the colonic findings. 4. Very small hiatal hernia. Subsequently an upper endoscopy and colonoscopy was arranged. This was done on 04/[address] Fields. Colonoscopy was negative however upper endoscopy revealed: Poorly differentiated carcinoma, in the stomach. Possibility of metastatic lobular carcinoma of the breast was raised. Her breast exam was normal however, she tells me she has not had a mammogram in about 20 years. As per NCCN guidelines workup for gastric carcinoma that is recommended includes: 1. PET scan. 2. Endoscopic ultrasound to determine if disease is early versus locally advanced stage. She was sent over to the [facility] to have a mammogram: No mammographic evidence of malignancy. I checked baseline labs, including the tumor markers: CEA 5.1, Ca 27.29 103. l proceeded with a PET scan for staging. This revealed: No foci of abnormal FDG activity are visualized. There are no abnormalities visualized suspicious for metastatic or other malignant lesions. l requested endoscopic ultrasound for exact pathological staging. This was scheduled at [facility], by Dr. Blanco. The area of abnormality was very subtle. He took several biopsies. Unfortunately they came back positive. She has seen Dr. Rajan, to consider surgery by minimally invasive method. It was decided to proceed with FLOT chemotherapy in the neoadjuvant setting. She was started on it a few months ago. She has tolerated it reasonably well. She had a CT scan of the chest abdomen pelvis on 10/19 which revealed: remarkable CT chest with no pulmonary nodule or mass. Right central venous port tip is in the distal SVC. Moderate sized hiatal hernia. There is a large stool in the colon suggestive of severe constipation. No abnormal sized abdominal lymph nodes seen. Distended urinary bladder. She underwent endoscopic ultrasound since imaging was not very helpful. This was done on November [address] Blanco. There were no lesions seen. The random biopsies of the stomach lining were negative. She then underwent surgery on 12/[address] Rajan. 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 Tumor site: Residual tumor most prominent along the greater curvature. Tumor size: A distinct tumor mass is not identified grossly. 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 Histologic type: Diffuse type(signet ring carcinoma.) Histologic grade: G3, poorly differentiated. Tumor extension: Tumor invades mucosa, submucosa, muscularis propria and subserosal connective tissue, extending to the peritoneal surface.(pT4a.) Margins: Final anastomotic do not appear negative for carcinoma. Residual carcinoma is identified in en face sections of the proximal margin.(discohesive tumor cells in the submucosa.) Treatment effect: Evident tumor regression but with extensive residual carcinoma, (partial response, score 2-3. LV I: Identified. Additional findings: Extensive tumor infiltrates omental adipose tissue and is present on the peritoneal surface,(pM1). Regional lymph nodes: Number examined: 5. Number positive: 2. Ancillary studies: HER2 fish testing is negative. Pathologic stage: Following preop neoadjuvant therapy. Primary tumor:ypN1. Metastatic disease:ypM1. She has recuperated from the surgery. Gradually advanced her diet. CEA level: 5.60, previously, 5.8, 4.40, prior to that. I discussed further treatment options with her. The plan was made to proceed with palliative chemotherapy, in the second-line setting, as delineated in the [place] trial. According to NCCN guidelines preferred regimen include: Paclitaxel 80 mg, on days 1, 8 and 15 + Ramucirumab 8 mg/kg, week 1 and 15 Q 28 days. l tried to see if I can substitute Abraxane for the paclitaxel. However unfortunately Abraxane was not available, then, from the wares sorter. Overall she has been tolerating the treatment reasonably well. She had a CT scan of the chest abdomen pelvis on 07/12: Question postsurgical change to the stomach and small esophageal hernia. No definite mass appreciated. No enlarged lymph nodes. Stool throughout the colon suggestive of constipation. Question mild wall thickening or colitis of the cecum. She had an upper endoscopy on 06/[address] Fields which revealed: Small bowel biopsy: Normal limits, negative for celiac disease. Anastomotic biopsy: Squamocolumnar mucosa with moderate chronic active inflammation. There was no evidence for residual carcinoma. This is encouraging. She had her cycle 6 day 15, on 09/09. She tolerated the treatment reasonably well. Lately she had noticed some trouble swallowing. She was referred to GI for upper endoscopy with dilatation. She had that done on 09/[address] Kay: Balloon dilatation of esophageal jejunal anastomosis with a 19 mm CRE balloon was done. Upper esophagus then dilated to 18 mm with resistance felt and superficial tears noted with heme. No evidence for tumor in the gastric remnant. She had a PET scan last week, on 09/29: 1. There is a focus of increased FDG activity in the right anterior aspect of the tongue with no associated CT abnormality. The finding is nonspecific, but was not present on the prior PET CT scan. This could be physiological muscular activity in the tongue, but the asymmetry and intensity is suspicious for a lesion at this site. Correlation with direct visualization is recommended for initial follow-up. This could also be further characterized with IV contrast enhanced CT scan of the neck soft tissues. 2. No other abnormalities suspicious for metastatic or other malignant lesions are noted. 3. Diffuse vascular calcifications including coronary. It is reassuring that the CT scan did not light up in the abdominal area. She does have the small ulcer under the right tongue border. EGD on 09/17: Findings: Larynx:? Normal Esophagus:? Tortuous esophagus with minimal contractions with retained food noted. fibrotic ring noted at esophagojejunal anastomosis.? Empiric baloon dilation of esophago-jejunal anstomosis with an 19 mm CRE balloon with no tear noted. Upper esophagus then dilated to 18 mm with resistance felt and superficial tear noted with heme. Stomach: surgically removed Jejunum: Afferent and efferent limbs of melyssa loop were examined and appeared normal. 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 On 11/05 it was 3.70. Since the CT scan, upper endoscopy and PET scan, are negative, she wanted to take a break from chemotherapy. I referred her to Dr. Kay to look at the tongue lesion. He referred her for ENT consultation. ENT appointment is in March. Meanwhile to try zinc. I gave her Magic mouthwash to see if it is some sort of an infectious lesion. That has resolved. She is doing well however has had recurrence of her intermittent dysphagia. She even has occasional vomiting. CEA level: 3.50 today, previously, 4.1, before that it was 3. She underwent an upper endoscopy with dilatation on 02/25/22. That helped. Fortunately no residual carcinoma was seen in the stomach. She gets occasional dysphagia mostly diet related. She has to Avoid bread and potatoes helps. PLAN: She would like to proceed with an endoscopy with dilatation. She will call GI. She will be monitored along. She will continue to focus on nutrition to keep her strength up, in the meantime. She will return in 3 months for a follow up. I refilled her oxycodone today. Thank you, CC: Dr. Clark. Dr. Fields. Dr. De Leon. Dr. Rajan - Time Spent With Patient Time Spent with Patient (in minutes): 26
[2022-09-26 09:59] VITALS: BP 199/78; PULSE 68; O2SAT 99; BMI 23.9
[2022-09-26 10:01] LABS: MANUAL DIFF FLAG NO
[2022-09-26 10:05] LABS: Basophils Percent Auto 0.4 % (0-2); Eosinophils Absolute Auto 0.1 X10*3/uL (0.0-0.4); Eosinophils Percent Auto 2.6 % (0-4); Hematocrit 29.3 % (37.0-47.0); Hemoglobin 9.5 g/dl (12.0-16.0); Imm Gran Abs Auto 0.01 X10*3/uL (0.00-0.03); Imm Gran Pct Auto 0.4 % (0.0-0.4); Lymphocytes Percent Auto 35.8 % (20-40); Mean Corpuscular HGB Conc 32.4 g/dl (31.0-35.0); Mean Corpuscular Hemoglobin 29.9 pg (27.0-33.0); Mean Corpuscular Volume 92.1 fL (80.0-98.0); Mean Platelet Volume 10.1 fL (9.4-12.3); Monocytes Absolute Auto 0.3 X10*3/uL (0.1-1.2); Monocytes Percent Auto 9.2 % (2-11); Neutrophils Absolute Auto 1.4 x10*3/uL (2.0-8.3); Neutrophils Percent Auto 51.6 % (45-73); Platelet Count 120 X10*3/uL (160-400); Red Blood Count 3.18 X10*6/uL (4.20-5.50); Red Cell Distribution Width 13.3 % (11.0-16.0); White Blood Count 2.7 X10*3/uL (4.8-10.8)
[2022-09-26 10:30] LABS: Alanine Aminotransferase 15 U/L (0-31); Albumin Level 4.1 g/dL (3.5-5.0); Alkaline Phosphatase 107 U/L (39-117); Anion Gap 11 (12-20); Aspartate Amino Transferase 24 U/L (5-31); Bilirubin Total 0.5 mg/dL (0.0-1.0); Blood Urea Nitrogen 15 mg/dL (9-16); Calcium 9.2 mg/dL (8.4-10.2); Carbon Dioxide 29 mmol/L (22-29); Chloride 107 mmol/L (96-108); Creatinine Clr Calc Pharmacy 79.6; Estimated Glomerular Filt Rate > 60; Glucose Random 104 mg/dL (60-115); Potassium 3.9 mmol/L (3.3-5.1); Sodium 143 mmol/L (135-145); Total Protein 6.2 g/dL (6.5-8.0)
--- NOTE | 2022-09-26 13:32 | MHC.HEMONCMA ---
patient seen today for stomach cancer, vss, labs, following up wi provider in 3 months
--- NOTE | 2022-09-26 14:59 | MHC.HEMONC ---
Port accessed with good blood return. Labs drawn and taken to lab. Port flushed with saline and heparin. Pt aware of next appt.
--- NOTE | 2022-11-07 09:58 | MHC.HEMONC ---
Here for port flush. Port accessed with good blood return noted. Flushed with heparin 500units and de-accessed. Tolerated well. Next port flush scheduled with follow up 12/22. Calendar given
[2022-12-22 09:27] VITALS: BP 196/86; PULSE 74; O2SAT 99; BMI 22.6
--- NOTE | 2022-12-22 09:42 | P.PNHO-ONC_ITS ---
Medical Summary - Medical Summary Date of Service: 12/22/22 Chief complaint: Follow-up for: Gastric carcinoma. Primary Care Provider: Gabriel Woodard MD Medical Summary: DIAGNOSIS: GASTRIC CARCINOMA. CURRENT THERAPY: 1. FLOT CHEMOTHERAPY, completed 4 cycles, day 15. 2. She then underwent surgery on 12/[address] Rajan. 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 Tumor site: Residual tumor most prominent along the greater curvature. Tumor size: A distinct tumor mass is not identified grossly. 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 Histologic type: Diffuse type(signet ring carcinoma.) Histologic grade: G3, poorly differentiated. Tumor extension: Tumor invades mucosa, submucosa, muscularis propria and subserosal connective tissue, extending to the peritoneal surface.(pT4a.) Margins: Final anastomotic do not appear negative for carcinoma. Residual carcinoma is identified in en face sections of the proximal margin.(discohesive tumor cells in the submucosa.) Treatment effect: Evident tumor regression but with extensive residual carcinoma, (partial response, score 2-3. LV I: Identified. Additional findings: Extensive tumor infiltrates omental adipose tissue and is present on the peritoneal surface,(pM1). Regional lymph nodes: Number examined: 5. Number positive: 2. Ancillary studies: HER2 fish testing is negative. Pathologic stage: Following preop neoadjuvant therapy. Primary tumor:ypN1. Metastatic disease:ypM1. 3. Completed Taxol and Ramucirumab, cycle 6 day 15 on 09/09. Interval History Interval history: Sheryl Espinoza is a pleasant 67 year old lady here for a follow-up visit. She tells me that she has been doing okay. However she has had more difficulty with swallowing, lately. The other day she was trying to eat some noodles in they appear to get stuck in her throat. She had chest pain and heaviness. It took several hours for it to get better. She still has some problems eating. Depends upon what she takes. Sometimes it feels it is getting stuck in the mid chest. Occasionally she has belly pain. She has heartburn. Sometimes feels nauseous. Denies diarrhea. No gross blood in the stools. She has a good appetite. Her weight is stable. Her energy level is good. Denies any chest pain or trouble with breathing. She denies any heartburn nausea or vomiting. She is in good spirits. Rest of the review of systems is unremarkable. She is trying to be more active. She does try to work out for 20 minutes every day. INTERIM HISTORY: She saw ENT for her tongue lesion. They did not feel it was serious. She had ongoing intermittent dysphagia. Sometimes food appeared to sit in the middle of the chest. Sometimes it would come up. This happened 2 to 3 times a week. Carafate was helpful. She then underwent an upper endoscopy with dilatation on 02/25, by Dr. Fields: Esophagus: Tortuous esophagus with increased tertiary contractions without stricture or ring. Normal appearing anastomosis and a fibrotic ring noted at the anastomotic site without narrowing - biopsied.? Empiric balloon dilation of esophago-jejunal anstomosis with a 20 mm (60F) CRE balloon x 60 seconds and no tear noted. Stomach:? Surgically removed Jejunum: Afferent and efferent limbs of melyssa loop were examined and appeared normal. Intervention: Biopsies and balloon dilation as noted above Impression and Post Procedure Diagnosis: Endoscopy Findings: ESOPHAGUS: Tortuous esophagus with increased tertiary contractions without stricture or ring. Normal appearing anastomosis and a fibrotic ring noted at the anastomotic site without narrowing - biopsied.? Empiric baloon dilation of esophago-jejunal anstomosis with a 20 mm (60F) CRE balloon x 60 seconds and no tear noted. STOMACH: surgically removed Since then she has had improvement in her symptoms. Previous history: Back in September, she had started noticing some difficulty swallowing, again. She had previously had this but it had improved after her endoscopy and dilatation back in June. She was referred to GI for upper endoscopy with dilatation. She had that done on 09/[address] Kay: Balloon dilatation of esophageal jejunal anastomosis with a 19 mm CRE balloon was done. Upper esophagus then dilated to 18 mm with resistance felt and superficial tears noted with heme. No evidence for tumor in the gastric remnant. Since the procedure, her swallowing has gotten better. She has started gaining weight. She denies heartburn or indigestion. It is difficult for her to eat, especially at one sitting. She tries to snack here in there. This has been going on since the surgery. She takes famotidine in the morning. Sometimes she gets epigastric pain for which she takes oxycodone. She uses it sparingly, especially at night. That is only way she can sleep 4-5 hours. Tylenol is not that effective. PAST HISTORY: She had surgery done. She initially had an endoscopic ultrasound by Dr. Blanco, in November,. There were no lesions seen. The random biopsies of the stomach lining were negative. She then underwent surgery on 12/[address] Rajan. 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 Tumor site: Residual tumor most prominent along the greater curvature. Tumor size: A distinct tumor mass is not identified grossly. 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 Histologic type: Diffuse type(signet ring carcinoma.) Histologic grade: G3, poorly differentiated. Tumor extension: Tumor invades mucosa, submucosa, muscularis propria and subserosal connective tissue, extending to the peritoneal surface.(pT4a.) Margins: Final anastomotic do not appear negative for carcinoma. Residual carcinoma is identified in en face sections of the proximal margin.(discohesive tumor cells in the submucosa.) Treatment effect: Evident tumor regression but with extensive residual car cinoma, (partial response, score 2-3. LV I: Identified. Additional findings: Extensive tumor infiltrates omental adipose tissue and is present on the peritoneal surface,(pM1). Regional lymph nodes: Number examined: 5. Number positive: 2. Ancillary studies: HER2 fish testing is negative. Pathologic stage: Following preop neoadjuvant therapy. Primary tumor:ypN1. Metastatic disease:ypM1. Previous history: She was admitted to the hospital back towards the end of February,, with symptoms of acute diverticulitis and UTI. She had presented with 3 days history of left flank pain and dysuria. Abdominal pain was accompanied by decreased appetite nausea and 1 episode of vomiting on 02/27. CT scan of the abdomen revealed: 1.Short segment mural thickening and pericolonic infiltrative changes in the proximal descending colon most consistent with acute diverticulitis or short s egment colitis. 2. Mild left pelvo- caliectasis, without obstructing abnormality could be secondary to left ureteropelvic junction stenosis. Left renal cyst demonstrated benign features. Nonobstructing right upper pole intrarenal calculus. 3. mild free fluid in the pelvis is presumed secondary to colonic findings. 4. Very small hiatus hernia. Patient was started on IV antibiotics and admitted. In addition she was noted to have a urinary tract infection. Blood cultures showed Gram-negative rods, likely bacteremia from the UTI. She did note improvement from abdominal pain from 10/10 to 4/10 the following day. She also complained of heartburn and odynophagia of for a few days. She was seen by GI. Recommendation was to continue IV antibiotics until abdominal pain improves. Start oral omeprazole for heartburn and odynophagia. To be scheduled for an upper endoscopy and colonoscopy, in 5-6 weeks time, after resolution of the diverticulitis. This was done on 04/24. Pathology revealed: Stomach body biopsy: Poorly differentiated carcinoma. Morphology and immunophenotype are not 100% specific but raise the possibility of metastatic lobular carcinoma of the breast. Other primary sources include gastric and other upper GI locations. Family history: Dad had pancreatic cancer at the age of 67. Mom had non-Hodgkin's lymphoma. 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 She has 3 children. She smoked as a teenager. She rarely drinks. Review of Systems - Constitutional Reports no additional constitutional complaints - Eyes Reports no additional eye complaints - ENT Reports no additional ear, nose, mouth, and throat complaints - Cardiovascular Reports no additional cardiovascular complaints - Respiratory Reports no additional respiratory complaints - Gastrointestinal Reports no additional gastrointestinal complaints - Genitourinary Reports no additional female genitourinary complaints - Musculoskeletal Reports no additional musculoskeletal complaints - Integumentary/Breasts Skin/Breast: Reports no additional skin complaints - Neurologic Reports no additional neurologic complaints, Reports hearing normal, Denies weakness - Psychiatric Reports no additional psychiatric complaints - Endocrine Reports no additional endocrine complaints - Hematologic/Lymphatic Reports no additional hematologic/lymphatic complaints - Allergic/Immunologic Reports no additional allergic/immunologic complaints [facility] Medical History: Medical History (Last Reviewed 09/26/22 @ 10:02 by Noe Escobar) History of cellulitis Hx of diverticulitis of colon Lab test negative for COVID-19 virus Type 2 diabetes mellitus with hyperglycemia Functional capacity: independent ambulation Patient : No Family History: Family History (Last Reviewed 09/26/22 @ 10:02 by Noe Escobar) Father Pancreatic cancer Mother NHL (non-Hodgkin's lymphoma) Maternal Grandfather Prostate cancer Maternal Grandmother Diabetes Heart disease Paternal Grandfather Diabetes Son Asthma Surgical History: Surgical History (Last Reviewed 09/26/22 @ 10:02 by Noe Escobar) H/O tubal ligation History of esophagogastroduodenoscopy (EGD) History of gastrectomy Hx of appendectomy Hx of colonoscopy Hx of tonsillectomy S/P cholecystectomy Onset Date: ~1988 S/P right knee arthroscopy Onset Date: ~2002 Social History: Social History (Last Reviewed 09/26/22 @ 10:02 by Noe Escobar) Living Situation History: Household Members: Spouse Housing: House Are you a primary senior care manager to a significant other at home: No Do you presently have visiting nurse or other home services: No Alcohol History Details: 1. How often do you have a drink containing alcohol?: a. Never Currently Displaying Signs/Symptoms of Alcohol Withdrawal: No Tobacco History: Patient Tobacco Use Status: Never used Tobacco e-Cigarette/Vaping Use: Never Used Second Hand Smoke Exposure: No Substance Use History: Use of substances other than those prescribed or required for medical reasons : No Domestic Abuse History: Have you been hit, kicked, punched, or otherwise hurt by someone within the past year? 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 Performance Status ECOG Performance Status: 0 Home Medications and Allergies Home Medications Medication Instructions Recorded Confirmed Type multivitamin 1 tab PO DAILY 05/11/20 09/26/22 History sucralfate 1 gram tablet 1 tab PO TID 02/17/22 09/26/22 History Allergies Allergy/AdvReac Type Severity Reaction Status Date / Time meperidine [From Demerol] Allergy Severe Swelling Verified 09/26/22 10:02 Exam Vital signs: Vital Signs Temp 97.8 F 07/05/22 09:00 Pulse 74 12/22/22 09:27 Resp 17 07/05/22 09:00 BP 196/86 H 12/22/22 09:27 Pulse Ox 99 12/22/22 09:27 O2 Del Method Room Air 12/22/22 09:27 Intake & Output 12/21/22 12/22/22 12/22/22 18:59 06:59 18:59 Other: Weight 59.8 kg [place] Weight in Grams 11931 Weight 59.8 kg BMI result Body Mass Index 22.6 - Constitutional Present: no acute distress - Routine HEENT Exam Head: Present: normal inspection Eye: Present: normal appearance ENT: Present: mucous membranes moist - Routine Neck Exam Present: full ROM - Routine Respiratory Exam Present: CTAB - Routine Cardiovascular Exam Cardiovascular: Present: RRR, S1, S2 - Routine Abdominal Exam Present: soft, nontender - Routine Rectal Exam Patient deferred: digital exam - Routine Extremities Exam Present: nontender - Routine Back/Spine/Pelvis Exam Back/Spine: Present: full ROM - Routine Skin Exam Present: intact - Routine Neurological Exam Present: alert, oriented X3, vision grossly intact - Detailed Neurological Exam: Coma Scale Eye Opening: Spontaneous (4) - Routine Psychiatric Exam Present: normal affect Data - Labs CBC & Chem 7: 12/22/22 09:45 12/22/22 09:45 Assessment and Plan Patient Active problem list reviewed?: Yes (1) Gastric cancer Status: Inactive (2) Gastric cancer Problem details: Gastrectomy, omentectomy, esophagojejunostomy, Melyssa-en-Y for gastric cancer Status: Acute Assessment and plan: This is a pleasant 64-year-old lady with a history of diabetes and diverticulosis. She had epigastric pain, off and on for a few months. She tells me she had GERD symptoms however she stopped eating sweets and those resolved. This was about 13 years ago. She was started on omeprazole recently which has been helping. Back in February she was admitted with a bout of diverticulitis. CT scan of the abdomen revealed: 1. Short segment mural thickening and pericolonic infiltrative changes in the proximal descending colon most consistent with acute diverticulitis or short segment colitis as a definitive diverticulum is not seen. 2. Mild left pelvocaliectasis without obstructing abnormality could be secondary to left ureteropelvic junction stenosis. Left renal cysts demonstrate benign features. Nonobstructing right upper pole intrarenal calculus. 3. Mild free fluid in the pelvis is presumed secondary to the colonic findings. 4. Very small hiatal hernia. Subsequently an upper endoscopy and colonoscopy was arranged. This was done on 04/[address] Fields. Colonoscopy was negative however upper endoscopy revealed: Poorly differentiated carcinoma, in the stomach. Possibility of metastatic lobular carcinoma of the breast was raised. Her breast exam was normal however, she tells me she has not had a mammogram in about 20 years. As per NCCN guidelines workup for gastric carcinoma that is recommended includes : 1. PET scan. 2. Endoscopic ultrasound to determine if disease is early versus locally advanced stage. She was sent over to the [facility] to have a mammogram: No mammographic evidence of malignancy. I checked baseline labs, including the tumor markers: CEA 5.1, Ca 27.29 103. l proceeded with a PET scan for staging. This revealed: No foci of abnormal FDG activity are visualized. There are no abnormalities visualized suspicious for metastatic or other malignant lesions. l requested endoscopic ultrasound for exact pathological staging. This was scheduled at [facility], by Dr. Blanco. The area of abnormality was very subtle. He took several biopsies. Unfortunately they came back positive. She has seen Dr. Rajan, to consider surgery by minimally invasive method. It was decided to proceed with FLOT chemotherapy in the neoadjuvant setting. She was started on it a few months ago. She has tolerated it reasonably well. She had a CT scan of the chest abdomen pelvis on 10/19 which revealed: remarkable CT chest with no pulmonary nodule or mass. Right central venous port tip is in the distal SVC. Moderate sized hiatal hernia. There is a large stool in the colon suggestive of severe constipation. No abnormal sized abdominal lymph nodes seen. Distended urinary bladder. She underwent endoscopic ultrasound since imaging was not very helpful. This was done on November [address] Blanco. There were no lesions seen. The random biopsies of the stomach lining were negative. She then underwent surgery on 12/[address] Rajan. 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 Tumor site: Residual tumor most prominent along the greater curvature. Tumor size: A distinct tumor mass is not identified grossly. 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 Histologic type: Diffuse type(signet ring carcinoma.) Histologic grade: G3, poorly differentiated. Tumor extension: Tumor invades mucosa, submucosa, muscularis propria and subserosal connective tissue, extending to the peritoneal surface.(pT4a.) Margins: Final anastomotic do not appear negative for carcinoma. Residual carcinoma is identified in en face sections of the proximal margin.(discohesive tumor cells in the submucosa.) Treatment effect: Evident tumor regression but with extensive residual carcinoma, (partial response, score 2-3. LV I: Identified. Additional findings: Extensive tumor infiltrates omental adipose tissue and is present on the peritoneal surface,(pM1). Regional lymph nodes: Number examined: 5. Number positive: 2. Ancillary studies: HER2 fish testing is negative. Pathologic stage: Following preop neoadjuvant therapy. Primary tumor:ypN1. Metastatic disease:ypM1. She has recuperated from the surgery. Gradually advanced her diet. CEA level: 5.60, previously, 5.8, 4.40, prior to that. I discussed further treatment options with her. The plan was made to proceed with palliative chemotherapy, in the second-line setting, as delineated in the [place] trial. According to NCCN guidelines preferred regimen include: Paclitaxel 80 mg, on days 1, 8 and 15 + Ramucirumab 8 mg/kg, week 1 and 15 Q 28 days. l tried to see if I can substitute Abraxane for the paclitaxel. 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 Overall she has been tolerating the treatment reasonably well. She had a CT scan of the chest abdomen pelvis on 07/12: Question postsurgical change to the stomach and small esophageal hernia. No definite mass appreciated. No enlarged lymph nodes. Stool throughout the colon suggestive of constipation. Question mild wall thickening or colitis of the cecum. She had an upper endoscopy on 06/[address] Fields which revealed: Small bowel biopsy: Normal limits, negative for celiac disease. Anastomotic biopsy: Squamocolumnar mucosa with moderate chronic active inflammation. There was no evidence for residual carcinoma. This is encouraging. She had her cycle 6 day 15, on 09/09. She tolerated the treatment reasonably well. Lately she had noticed some trouble swallowing. She was referred to GI for upper endoscopy with dilatation. She had that done on 09/[address] Kay: Balloon dilatation of esophageal jejunal anastomosis with a 19 mm CRE balloon was done. Upper esophagus then dilated to 18 mm with resistance felt and superficial tears noted with heme. No evidence for tumor in the gastric remnant. She had a PET scan last week, on 09/29: 1. There is a focus of increased FDG activity in the right anterior aspect of the tongue with no associated CT abnormality. The finding is nonspecific, but was not present on the prior PET CT scan. This could be physiological muscular activity in the tongue, but the asymmetry and intensity is suspicious for a lesion at this site. Correlation with direct visualization is recommended for initial follow-up. This could also be further characterized with IV contrast enhanced CT scan of the neck soft tissues. 2. No other abnormalities suspicious for metastatic or other malignant lesions are noted. 3. Diffuse vascular calcifications including coronary. It is reassuring that the CT scan did not light up in the abdominal area. She does have the small ulcer under the right tongue border. EGD on 09/17: Findings: Larynx:? Normal Esophagus:? Tortuous esophagus with minimal contractions with retained food noted. fibrotic ring noted at esophagojejunal anastomosis.? Empiric baloon dilation of esophago-jejunal anstomosis with an 19 mm CRE balloon with no tear noted. Upper esophagus then dilated to 18 mm with resistance felt and superficial tear noted with heme. Stomach: surgically removed Jejunum: Afferent and efferent limbs of melsysa loop were examined and appeared normal. 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 On 11/05 it was 3.70. Since the CT scan, upper endoscopy and PET scan, are negative, she wanted to take a break from chemotherapy. I referred her to Dr. Kay to look at the tongue lesion. He referred her for ENT consultation. ENT appointment is in March. Meanwhile to try zinc. I gave her Magic mouthwash to see if it is some sort of an infectious lesion. That has resolved. She is doing well however has had recurrence of her intermittent dysphagia. She even has occasional vomiting. CEA level: 3.50 today, previously, 4.1, before that it was 3. She underwent an upper endoscopy with dilatation on 02/25/22. That helped. Fortunately no residual carcinoma was seen in the stomach. She has been getting dysphagia more frequently. CEA: 3.60. PLAN: She would like to proceed with an endoscopy with dilatation. will call GI. She will continue to be monitored. She will continue to focus on nutrition to keep her strength up, in the meantime. She will return in 3 months for a follow up. She had her port flushed today. Thank you, CC: Dr. Clark. Dr. Fields. Dr. De Leon. Dr. Rajan - Time Spent With Patient Time Spent with Patient (in minutes): 25
--- NOTE | 2022-12-22 09:47 | MHC.HEMONC ---
Pt here for port flush, lab draw, follow up with Dr Cisneros. Port accessed with blood return noted. Labs drawn from port-specimen to lab. Port flushed with heparin and de accessed. Next port flush scheduled-calendar given. Dr Cisneros into see pt
[2022-12-22 09:50] LABS: MANUAL DIFF FLAG NO
[2022-12-22 09:59] LABS: Basophils Percent Auto 0.4 % (0-2); Eosinophils Absolute Auto 0.1 X10*3/uL (0.0-0.4); Eosinophils Percent Auto 2.2 % (0-4); Hematocrit 31.8 % (37.0-47.0); Hemoglobin 10.2 g/dl (12.0-16.0); Lymphocytes Absolute Auto 0.9 X10*3/uL (1.2-4.9); Lymphocytes Percent Auto 31.8 % (20-40); Mean Corpuscular HGB Conc 32.1 g/dl (31.0-35.0); Mean Corpuscular Hemoglobin 29.5 pg (27.0-33.0); Mean Corpuscular Volume 91.9 fL (80.0-98.0); Mean Platelet Volume 10.4 fL (9.4-12.3); Monocytes Absolute Auto 0.2 X10*3/uL (0.1-1.2); Monocytes Percent Auto 8.7 % (2-11); Neutrophils Absolute Auto 1.6 x10*3/uL (2.0-8.3); Neutrophils Percent Auto 56.9 % (45-73); Platelet Count 143 X10*3/uL (160-400); Red Blood Count 3.46 X10*6/uL (4.20-5.50); Red Cell Distribution Width 13.2 % (11.0-16.0); White Blood Count 2.8 X10*3/uL (4.8-10.8)
[2022-12-22 10:11] LABS: Alanine Aminotransferase 12 U/L (0-31); Albumin Level 4.1 g/dL (3.5-5.0); Alkaline Phosphatase 104 U/L (39-117); Anion Gap 12 (12-20); Aspartate Amino Transferase 24 U/L (5-31); Bilirubin Total 0.3 mg/dL (0.0-1.0); Blood Urea Nitrogen 9 mg/dL (9-16); Calcium 9.7 mg/dL (8.4-10.2); Carbon Dioxide 30 mmol/L (22-29); Chloride 105 mmol/L (96-108); Creatinine Clr Calc Pharmacy 66.4; Estimated Glomerular Filt Rate > 60; Glucose Random 131 mg/dL (60-115); Potassium 3.9 mmol/L (3.3-5.1); Sodium 143 mmol/L (135-145)
--- NOTE | 2022-12-22 10:55 | MHC.HEMONCMA ---
patient seen today for stomach cancer, vss, labs, following up with provider in 3 months
[2023-02-09 09:32] VITALS: BP 191/91; PULSE 76; RESP 18; TEMP 36.3; O2SAT 98; BMI 23.0
--- NOTE | 2023-02-09 09:57 | MHC.HEMONC ---
Here for port flush. Port accessed with good blood return noted. Flushed with heparin 500units and de-accessed. Next port flush scheduled with follow up in 6 weeks. Declined calendar, states she uses portal. Departed unit.
[2023-03-27 08:32] VITALS: BP 196/86; PULSE 77; O2SAT 100; BMI 22.2
--- NOTE | 2023-03-27 08:38 | PM.HEMONCPN ---
Medical Summary - Medical Summary Date of Service: 03/27/23 Chief complaint: Follow-up for: Gastric carcinoma. Primary Care Provider: Gabriel Woodard MD Medical Summary: DIAGNOSIS: GASTRIC CARCINOMA. CURRENT THERAPY: 1. FLOT CHEMOTHERAPY, completed 4 cycles, day 15. 2. She then underwent surgery on 12/[address] Rajan. 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 Tumor site: Residual tumor most prominent along the greater curvature. Tumor size: A distinct tumor mass is not identified grossly. 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 Histologic type: Diffuse type(signet ring carcinoma.) Histologic grade: G3, poorly differentiated. Tumor extension: Tumor invades mucosa, submucosa, muscularis propria and subserosal connective tissue, extending to the peritoneal surface.(pT4a.) Margins: Final anastomotic do not appear negative for carcinoma. Residual carcinoma is identified in en face sections of the proximal margin.(discohesive tumor cells in the submucosa.) Treatment effect: Evident tumor regression but with extensive residual carcinoma, (partial response, score 2-3. LV I: Identified. Additional findings: Extensive tumor infiltrates omental adipose tissue and is present on the peritoneal surface,(pM1). Regional lymph nodes: Number examined: 5. Number positive: 2. Ancillary studies: HER2 fish testing is negative. Pathologic stage: Following preop neoadjuvant therapy. Primary tumor:ypN1. Metastatic disease:ypM1. 3. Completed Taxol and Ramucirumab, cycle 6 day 15 on 09/09. Interval History Interval history: Sheryl Espinoza is a pleasant 67 year old lady here for a follow-up visit. She tells me that she has been doing quite well. She had had more difficulty with swallowing. She had an upper endoscopy on January [address] Fields , her note: ESOPHAGUS: Tortuous esophagus with increased tertiary contractions without stricture or ring. Normal appearing anastomosis and a fibrotic ring noted at the anastomotic site without narrowing - biopsied.? Empiric baloon dilation of esophago-jejunal anstomosis with a 20 mm (60F) CRE balloon x 60 seconds and no tear noted. STOMACH: surgically removed Plan: Further evaluation with a barium swallow if pt continues to have dysphagia symptoms. She still has some problems eating. Depends upon what she takes. Sometimes it feels it is gets stuck in the mid chest. She has occassional belly pain. She gets heartburn. Denies diarrhea. No gross blood in the stools. She has a good appetite. Her weight is stable. Her energy level is good. Denies any chest pain or trouble with breathing. She denies any heartburn nausea or vomiting. She is in good spirits. Rest of the review of systems is unremarkable. She is trying to be more active. She does try to work out for 20 minutes every day. However she notices that if she takes metformin and then tries to exercise she has nausea and loses steam. She feels dizzy. She is in good spirits. Rest of the review of systems is unremarkable. INTERIM HISTORY: She saw ENT for her tongue lesion. They did not feel it was serious. She had ongoing intermittent dysphagia. Sometimes food appeared to sit in the middle of the chest. Sometimes it would come up. This happened 2 to 3 times a week. Carafate was helpful. She then underwent an upper endoscopy with dilatation on 02/25, by Dr. Fields: Esophagus: Tortuous esophagus with increased tertiary contractions without stricture or ring. Normal appearing anastomosis and a fibrotic ring noted at the anastomotic site without narrowing - biopsied.? Empiric balloon dilation of esophago-jejunal anstomosis with a 20 mm (60F) CRE balloon x 60 seconds and no tear noted. Stomach:? Surgically removed Jejunum: Afferent and efferent limbs of melyssa loop were examined and appeared normal. Intervention: Biopsies and balloon dilation as noted above Impression and Post Procedure Diagnosis: Endoscopy Findings: ESOPHAGUS: Tortuous esophagus with increased tertiary contractions without stricture or ring. Normal appearing anastomosis and a fibrotic ring noted at the anastomotic site without narrowing - biopsied.? Empiric baloon dilation of esophago-jejunal anstomosis with a 20 mm (60F) CRE balloon x 60 seconds and no tear noted. STOMACH: surgically removed Since then she has had improvement in her symptoms. Previous history: Back in September, she had started noticing some difficulty swallowing, again. She had previously had this but it had improved after her endoscopy and dilatation back in June. She was referred to GI for upper endoscopy with dilatation. She had that done on 09/[address] Kay: Balloon dilatation of esophageal jejunal anastomosis with a 19 mm CRE balloon was done. Upper esophagus then dilated to 18 mm with resistance felt and superficial tears noted with heme. No evidence for tumor in the gastric remnant. Since the procedure, her swallowing has gotten better. She has started gaining weight. She denies heartburn or indigestion. It is difficult for her to eat, especially at one sitting. She tries to snack here in there. This has been going on since the surgery. She takes famotidine in the morning. Sometimes she gets epigastric pain for which she takes oxycodone. She uses it sparingly, especially at night. That is only way she can sleep 4-5 hours. Tylenol is not that effective. PAST HISTORY: She had surgery done. She initially had an endoscopic ultrasound by Dr. Blanco, in November,. There were no lesions seen. The random biopsies of the stomach lining were negative. She then underwent surgery on 12/[address] Rajan. 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 Tumor site: Residual tumor most prominent along the greater curvature. Tumor size: A distinct tumor mass is not identified grossly. 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 Histologic type: Diffuse type(signet ring carcinoma.) Histologic grade: G3, poorly differentiated. Tumor extension: Tumor invades mucosa, submucosa, muscularis propria and subserosal connective tissue, extending to the peritoneal surface.(pT4a.) Margins: Final anastomotic do not appear negative for carcinoma. Residual carcinoma is identified in en face sections of the proximal margin.(discohesive tumor cells in the submucosa.) Treatment effect: Evident tumor regression but with extensive residual carcinoma, (partial response, score 2-3. LV I: Identified. Additional findings: Extensive tumor infiltrates omental adipose tissue and is present on the peritoneal surface,(pM1). Regional lymph nodes: Number examined: 5. Number positive: 2. Ancillary studies: HER2 fish testing is negative. Pathologic stage: Following preop neoadjuvant therapy. Primary tumor:ypN1. Metastatic disease:ypM1. Previous history: She was admitted to the hospital back towards the end of February,, with symptoms of acute diverticulitis and UTI. She had presented with 3 days history of left flank pain and dysuria. Abdominal pain was accompanied by decreased appetite nausea and 1 episode of vomiting on 02/27. CT scan of the abdomen revealed: 1.Short segment mural thickening and pericolonic infiltrative changes in the proximal descending colon most consistent with acute diverticulitis or short segment colitis. 2. Mild left pelvo- caliectasis, without obstructing abnormality could be secondary to left ureteropelvic junction stenosis. Left renal cyst demonstrated benign features. Nonobstructing right upper pole intrarenal calculus. 3. mild free fluid in the pelvis is presumed secondary to colonic findings. 4. Very small hiatus hernia. Patient was started on IV antibiotics and admitted. In addition she was noted to have a urinary tract infection. Blood cultures showed Gram-negative rods, likely bacteremia from the UTI. She did note improvement from abdominal pain from 10/ to 4/10 the following day. She also complained of heartburn and odynophagia of for a few days. She was seen by GI. Recommendation was to continue IV antibiotics until abdominal pain improves. Start oral omeprazole for heartburn and odynophagia. To be scheduled for an upper endoscopy and colonoscopy, in 5-6 weeks time, after resolution of the diverticulitis. This was done on 04/24. Pathology revealed: Stomach body biopsy: Poorly differentiated carcinoma. Morphology and immunophenotype are not 100% specific but raise the possibility of metastatic lobular carcinoma of the breast. Other primary sources include gastric and other upper GI locations. Family history: Dad had pancreatic cancer at the age of 67. Mom had non-Hodgkin's lymphoma. 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 She has 3 children. She smoked as a teenager. She rarely drinks. Review of Systems - Constitutional Reports no additional constitutional complaints, Denies lack of energy, Denies malaise, Denies weight gain, Denies weight loss - Eyes Reports no additional eye complaints - ENT Reports no additional ear, nose, mouth, and throat complaints - Cardiovascular Reports no additional cardiovascular complaints - Respiratory Reports no additional respiratory complaints - Gastrointestinal Reports no additional gastrointestinal complaints - Genitourinary Reports no additional female genitourinary complaints - Musculoskeletal Reports no additional musculoskeletal complaints - Integumentary/Breasts Skin/Breast: Reports no additional skin complaints - Neurologic Reports no additional neurologic complaints, Reports hearing normal, Denies weakness - Psychiatric Reports no additional psychiatric complaints - Endocrine Reports no additional endocrine complaints - Hematologic/Lymphatic Reports no additional hematologic/lymphatic complaints - Allergic/Immunologic Reports no additional allergic/immunologic complaints [facility] Medical History: Medical History (Last Reviewed 03/27/23 @ 08:30 by Noe Escobar) Essential hypertension History of cellulitis Hx of diverticulitis of colon Lab test negative for COVID-19 virus Type 2 diabetes mellitus with hyperglycemia Functional capacity: independent ambulation Patient : No Family History: Family History (Last Reviewed 03/27/23 @ 08:30 by Noe Escobar) Father Pancreatic cancer Mother NHL (non-Hodgkin's lymphoma) Maternal Grandfather Prostate cancer Maternal Grandmother Diabetes Heart disease Paternal Grandfather Diabetes Son Asthma Surgical History: Surgical History (Last Reviewed 03/27/23 @ 08:30 by Noe Escobar) H/O tubal ligation History of esophagogastroduodenoscopy (EGD) History of gastrectomy Hx of appendectomy Hx of colonoscopy Hx of endoscopy Hx of tonsillectomy S/P cholecystectomy Onset Date: ~1988 S/P right knee arthroscopy Onset Date: ~2002 Social History: Social History (Last Reviewed 03/27/23 @ 08:30 by Noe Escobar) Living Situation History: Household Members: Spouse Housing: House Are you a primary plant health care technician to a significant other at home: No Do you presently have visiting nurse or other home services: No Alcohol History Details: 1. How often do you have a drink containing alcohol?: a. Never Currently Displaying Signs/Symptoms of Alcohol Withdrawal: No Tobacco History: Patient Tobacco Use Status: Never used Tobacco e-Cigarette/Vaping Use: Never Used Second Hand Smoke Exposure: No Substance Use History: Use of substances other than those prescribed or required for medical reasons: No Domestic Abuse History: Have you been hit, kicked, punched, or otherwise hurt by someone within the past year? 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 Performance Status ECOG Performance Status: 0 Home Medications and Allergies Home Medications Medication Instructions Recorded Confirmed Type multivitamin 1 tab PO DAILY 05/11/20 03/27/23 History mecobalamin (vitamin B12) 500 mcg 500 mcg PO DAILY 02/02/23 03/27/23 History chewable tablet Allergies Allergy/AdvReac Type Severity Reaction Status Date / Time meperidine [From Demerol] Allergy Severe Swelling Verified 03/27/23 08:30 Exam Vital signs: Vital Signs Temp 97.3 F 02/09/23 09:32 Pulse 77 03/27/23 08:32 Resp 18 02/09/23 09:32 BP 196/86 H 03/27/23 08:32 Pulse Ox 100 03/27/23 08:32 O2 Del Method Room Air 03/27/23 08:32 Intake & Output 03/26/23 03/27/23 03/27/23 18:59 06:59 18:59 Other: Weight 58.6 kg Weight in Grams 23536 Weight 58.6 kg BMI result Body Mass Index 22.2 - Constitutional Present: no acute distress - Routine HEENT Exam Head: Present: normal inspection Eye: Present: normal appearance ENT: Present: mucous membranes moist - Routine Neck Exam Present: full ROM - Routine Respiratory Exam Present: CTAB - Routine Cardiovascular Exam Cardiovascular: Present: RRR, S1, S2 - Routine Abdominal Exam Present: soft, nontender - Routine Rectal Exam Patient deferred: digital exam - Routine Extremities Exam Present: nontender - Routine Back/Spine/Pelvis Exam Back/Spine: Present: full ROM - Routine Skin Exam Present: intact - Routine Neurological Exam Present: alert, oriented X3, vision grossly intact - Detailed Neurological Exam: Coma Scale Eye Opening: Spontaneous (4) - Routine Psychiatric Exam Present: normal affect Data - Labs CBC & Chem 7: 03/27/23 09:10 03/27/23 09:10 Assessment and Plan Patient Active problem list reviewed?: Yes (1) Gastric cancer Status: Inactive (2) Gastric cancer Problem details: Gastrectomy, omentectomy, esophagojejunostomy, Melyssa-en-Y for gastric cancer Status: Acute Assessment and plan: This is a pleasant 64-year-old lady with a history of diabetes and diverticulosis. She had epigastric pain, off and on for a few months. She tells me she had GERD symptoms however she stopped eating sweets and those resolved. This was about 13 years ago. She was started on omeprazole recently which has been helping. Back in February she was admitted with a bout of diverticulitis. CT scan of the abdomen revealed: 1. Short segment mural thickening and pericolonic infiltrative changes in the proximal descending colon most consistent with acute diverticulitis or short segment colitis as a definitive diverticulum is not seen. 2. Mild left pelvocaliectasis without obstructing abnormality could be secondary to left ureteropelvic junction stenosis. Left renal cysts demonstrate benign features. Nonobstructing right upper pole intrarenal calculus. 3. Mild free fluid in the pelvis is presumed secondary to the colonic findings. 4. Very small hiatal hernia. Subsequently an upper endoscopy and colonoscopy was arranged. This was done on 04/[address] Fields. Colonoscopy was negative however upper endoscopy revealed: Poorly differentiated carcinoma, in the stomach. Possibility of metastatic lobular carcinoma of the breast was raised. Her breast exam was normal however, she tells me she has not had a mammogram in about 20 years. As per NCCN guidelines workup for gastric carcinoma that is recommended includes: 1. PET scan. 2. Endoscopic ultrasound to determine if disease is early versus locally advanced stage. She was sent over to the [facility] to have a mammogram: No mammographic evidence of malignancy. I checked baseline labs, including the tumor markers: CEA 5.1, Ca 27.29 103. l proceeded with a PET scan for staging. This revealed: No foci of abnormal FDG activity are visualized. There are no abnormalities visualized suspicious for metastatic or other malignant lesions. l requested endoscopic ultrasound for exact pathological staging. This was scheduled at [facility], by Dr. Blanco. The area of abnormality was very subtle. He took several biopsies. Unfortunately they came back positive. She has seen Dr. Rajan, to consider surgery by minimally invasive method. It was decided to proceed with FLOT chemotherapy in the neoadjuvant setting. She was started on it a few months ago. She has tolerated it reasonably well. She had a CT scan of the chest abdomen pelvis on 10/19 which revealed: remarkable CT chest with no pulmonary nodule or mass. Right central venous port tip is in the distal SVC. Moderate sized hiatal hernia. There is a large stool in the colon suggestive of severe constipation. No abnormal sized abdominal lymph nodes seen. Distended urinary bladder. She underwent endoscopic ultrasound since imaging was not very helpful. This was done on November [address] Blanco. There were no lesions seen. The random biopsies of the stomach lining were negative. She then underwent surgery on 12/[address] Rajan. 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 Tumor site: Residual tumor most prominent along the greater curvature. Tumor size: A distinct tumor mass is not identified grossly. 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 Histologic type: Diffuse type(signet ring carcinoma.) Histologic grade: G3, poorly differentiated. Tumor extension: Tumor invades mucosa, submucosa, muscularis propria and subserosal connective tissue, extending to the peritoneal surface.(pT4a.) Margins: Final anastomotic do not appear negative for carcinoma. Residual carcinoma is identified in en face sections of the proximal margin.(discohesive tumor cells in the submucosa.) Treatment effect: Evident tumor regression but with extensive residual carcinoma, (partial response, score 2-3. LV I: Identified. Additional findings: Extensive tumor infiltrates omental adipose tissue and is present on the peritoneal surface,(pM1). Regional lymph nodes: Number examined: 5. Number positive: 2. Ancillary studies: HER2 fish testing is negative. Pathologic stage: Following preop neoadjuvant therapy. Primary tumor:ypN1. Metastatic disease:ypM1. She has recuperated from the surgery. Gradually advanced her diet. CEA level: 5.60, previously, 5.8, 4.40, prior to that. I discussed further treatment options with her. The plan was made to proceed with palliative chemotherapy, in the second-line setting, as delineated in the [place] trial. According to NCCN guidelines preferred regimen include: Paclitaxel 80 mg, on days 1, 8 and 15 + Ramucirumab 8 mg/kg, week 1 and 15 Q 28 days. l tried to see if I can substitute Abraxane for the paclitaxel. 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 Overall she has been tolerating the treatment reasonably well. She had a CT scan of the chest abdomen pelvis on 07/12: Question postsurgical change to the stomach and small esophageal hernia. No definite mass appreciated. No enlarged lymph nodes. Stool throughout the colon suggestive of constipation. Question mild wall thickening or colitis of the cecum. She had an upper endoscopy on 06/[address] Fields which revealed: Small bowel biopsy: Normal limits, negative for celiac disease. Anastomotic biopsy: Squamocolumnar mucosa with moderate chronic active inflammation. There was no evidence for residual carcinoma. This is encouraging. She had her cycle 6 day 15, on 09/09. She tolerated the treatment reasonably well. Lately she had noticed some trouble swallowing. She was referred to GI for upper endoscopy with dilatation. She had that done on 09/[address] Kay: Balloon dilatation of esophageal jejunal anastomosis with a 19 mm CRE balloon was done. Upper esophagus then dilated to 18 mm with resistance felt and superficial tears noted with heme. No evidence for tumor in the gastric remnant. She had a PET scan last week, on 09/29: 1. There is a focus of increased FDG activity in the right anterior aspect of the tongue with no associated CT abnormality. The finding is nonspecific, but was not present on the prior PET CT scan. This could be physiological muscular activity in the tongue, but the asymmetry and intensity is suspicious for a lesion at this site. Correlation with direct visualization is recommended for initial follow-up. This could also be further characterized with IV contrast enhanced CT scan of the neck soft tissues. 2. No other abnormalities suspicious for metastatic or other malignant lesions are noted. 3. Diffuse vascular calcifications including coronary. It is reassuring that the CT scan did not light up in the abdominal area. She does have the small ulcer under the right tongue border. EGD on 09/17: Findings: Larynx:? Normal Esophagus:? Tortuous esophagus with minimal contractions with retained food noted. fibrotic ring noted at esophagojejunal anastomosis.? Empiric baloon dilation of esophago-jejunal anstomosis with an 19 mm CRE balloon with no tear noted. Upper esophagus then dilated to 18 mm with resistance felt and superficial tear noted with heme. Stomach: surgically removed Jejunum: Afferent and efferent limbs of melyssa loop were examined and appeared normal. 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 On 11/05 it was 3.70. Since the CT scan, upper endoscopy and PET scan, are negative, she wanted to take a break from chemotherapy. I referred her to Dr. Kay to look at the tongue lesion. He referred her for ENT consultation. ENT appointment is in March. Meanwhile to try zinc. I gave her Magic mouthwash to see if it is some sort of an infectious lesion. That has resolved. She is doing well however has had recurrence of her intermittent dysphagia. She even has occasional vomiting. CEA level: 3.50 today, previously, 4.1, before that it was 3. She underwent an upper endoscopy with dilatation on 02/25/22. That helped. Fortunately no residual carcinoma was seen in the stomach. She was getting dysphagia. She underwent an upper endoscopy with dilatation on 02/03. She has felt better since then. CEA: 4.50, previously 3.60. She is clinically doing well, LFTs are elevated. I have forwarded these to GI. PLAN: I will proceed with a CT scan of the abdomen for further evaluation. She has an appointment with GI on 04/13. She will continue to be monitored. In the meantime, she will continue to focus on nutrition to keep her strength up. She will return in 3 months for a follow up. She had her port flushed today. Thank you, CC: Dr. Clark. Dr. Fields. Dr. De Leon. Dr. Rajan - Time Spent With Patient Time Spent with Patient (in minutes): 26
--- NOTE | 2023-03-27 09:15 | MHC.HEMONCMA ---
patient seen today for stomach ca, vss, labs, following up with provider in 3 months
[2023-03-27 09:19] LABS: Basophils Percent Auto 0.4 % (0-2); Eosinophils Percent Auto 0.8 % (0-4); Hematocrit 30.1 % (37.0-47.0); Hemoglobin 9.9 g/dl (12.0-16.0); Lymphocytes Absolute Auto 0.5 X10*3/uL (1.2-4.9); Lymphocytes Percent Auto 21.6 % (20-40); MANUAL DIFF FLAG SCAN; Mean Corpuscular HGB Conc 32.9 g/dl (31.0-35.0); Mean Corpuscular Hemoglobin 31.2 pg (27.0-33.0); Mean Platelet Volume 10.9 fL (9.4-12.3); Monocytes Absolute Auto 0.3 X10*3/uL (0.1-1.2); Monocytes Percent Auto 10.4 % (2-11); Neutrophils Absolute Auto 1.6 x10*3/uL (2.0-8.3); Neutrophils Percent Auto 66.8 % (45-73); Platelet Count 155 X10*3/uL (160-400); Red Blood Count 3.17 X10*6/uL (4.20-5.50); Red Cell Distribution Width 13.6 % (11.0-16.0); SCAN SMEAR FLAG 1; White Blood Count 2.4 X10*3/uL (4.8-10.8)
[2023-03-27 09:43] LABS: Alanine Aminotransferase 123 U/L (0-31); Albumin Level 3.9 g/dL (3.5-5.0); Alkaline Phosphatase 687 U/L (39-117); Anion Gap 10 (12-20); Aspartate Amino Transferase 140 U/L (5-31); Bilirubin Total 1.3 mg/dL (0.0-1.0); Blood Urea Nitrogen 13 mg/dL (9-16); Calcium 9.7 mg/dL (8.4-10.2); Carbon Dioxide 30 mmol/L (22-29); Chloride 100 mmol/L (96-108); Creatinine Clr Calc Pharmacy 67.3; Estimated Glomerular Filt Rate > 60; Glucose Random 227 mg/dL (60-115); Potassium 3.9 mmol/L (3.3-5.1); Sodium 136 mmol/L (135-145); Total Protein 6.7 g/dL (6.5-8.0)
[2023-03-27 09:45] LABS: SLIDE REVIEW VERIFIED
--- NOTE | 2023-03-27 12:30 | MHC.HEMONC ---
Port accessed with good blood return noted. Labs drawn. Port flushed with heparin 500units and de-accessed. Next port flush scheduled for 6 weeks. Calendar given
[2023-05-03 14:45] LABS: Alanine Aminotransferase 38 U/L (0-31); Albumin Level 2.8 g/dL (3.5-5.0); Alkaline Phosphatase 390 U/L (39-117); Aspartate Amino Transferase 84 U/L (5-31); Bilirubin Direct 4.8 mg/dL (0.0-0.5); Bilirubin Total 6.1 mg/dL (0.0-1.0); Total Protein 5.5 g/dL (6.5-8.0)
--- NOTE | 2023-05-03 16:22 | MHC.HEMONC ---
Patient here for port flush and lab appt. Dr. Junior ordered liver profile. Labs reviewed with Dr. Junior. Patient to be scheduled next week for lab work. Called patient's home and spoke to son with update.
[2023-05-16 09:04] VITALS: BP 111/65; PULSE 114; O2SAT 96
[2023-05-16 09:27] LABS: MANUAL DIFF FLAG NO
--- NOTE | 2023-05-16 09:27 | MHC.HEMONC ---
Addendum entered by Ciera Munguia RN 05/16/23 13:59: IV complete. Information given to pt and for Irinotecan. Plan is for pt to start treatment once PA obtained. Discussed starting next week, but pt states she is still weak and not feeling well. Will work on PA and check in with pt at end of the week to schedule treatments. Pt agreeable. Will update Dr Cisneros. Addendum entered by Ciera Munguia RN 05/16/23 12:07: Potassium 2.7, Dr Cisneros aware. Pt to receive IV potassium. Port re-accessed with good blood return noted. NS 1000cc with 20meq potassium infusing at 500cc/hr. Original Note: Port accessed with good blood return noted. Labs obtained. Port flushed with heparin 500units and de-accessed. Tolerated procedure well. Pt scheduled for CT scan in AM, but ok to cancel per Dr Cisneros as pt had scans during recent admission. Radiology called and notified. Dr Cisneros in to see pt for follow up. Next port flush scheduled for 6weeks.
[2023-05-16 09:31] LABS: Basophils Percent Auto 0.2 % (0-2); Hematocrit 34.6 % (37.0-47.0); Hemoglobin 11.3 g/dl (12.0-16.0); Imm Gran Abs Auto 0.01 X10*3/uL (0.00-0.03); Imm Gran Pct Auto 0.2 % (0.0-0.4); Lymphocytes Absolute Auto 0.8 X10*3/uL (1.2-4.9); Mean Corpuscular HGB Conc 32.7 g/dl (31.0-35.0); Mean Corpuscular Hemoglobin 30.8 pg (27.0-33.0); Mean Corpuscular Volume 94.3 fL (80.0-98.0); Mean Platelet Volume 9.7 fL (9.4-12.3); Monocytes Absolute Auto 0.3 X10*3/uL (0.1-1.2); Monocytes Percent Auto 6.4 % (2-11); Neutrophils Absolute Auto 3.4 x10*3/uL (2.0-8.3); Neutrophils Percent Auto 75.2 % (45-73); Platelet Count 348 X10*3/uL (160-400); Red Blood Count 3.67 X10*6/uL (4.20-5.50); White Blood Count 4.6 X10*3/uL (4.8-10.8)
[2023-05-16 10:01] LABS: Alanine Aminotransferase 29 U/L (0-31); Albumin Level 2.8 g/dL (3.5-5.0); Alkaline Phosphatase 380 U/L (39-117); Anion Gap 17 (12-20); Aspartate Amino Transferase 63 U/L (5-31); Bilirubin Total 4.7 mg/dL (0.0-1.0); Blood Urea Nitrogen 11 mg/dL (9-16); Carbon Dioxide 32 mmol/L (22-29); Chloride 92 mmol/L (96-108); Creatinine Clr Calc Pharmacy 69.3; Estimated Glomerular Filt Rate > 60; Glucose Random 110 mg/dL (60-115); Potassium 2.7 mmol/L (3.3-5.1); Sodium 138 mmol/L (135-145); Total Protein 5.8 g/dL (6.5-8.0)
[2023-05-16] MEDS: KCl 20 mEq in 0.9 % Sodium ChL 20 MEQ/1,000 ML IV.SOLN 500 MEQ IVCONT (10:43)
--- NOTE | 2023-05-16 13:21 | PM.HEMONCPN ---
Medical Summary - Medical Summary Date of Service: 05/16/23 Chief complaint: Follow-up for: Recurrent gastric cancer. Primary Care Provider: Gabriel Woodard MD Medical Summary: DIAGNOSIS: GASTRIC CARCINOMA. CURRENT THERAPY: 1. FLOT CHEMOTHERAPY, completed 4 cycles, day 15. 2. She then underwent surgery on 12/[address] Rajan. 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 Tumor site: Residual tumor most prominent along the greater curvature. Tumor size: A distinct tumor mass is not identified grossly. 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 Histologic type: Diffuse type(signet ring carcinoma.) Histologic grade: G3, poorly differentiated. Tumor extension: Tumor invades mucosa, submucosa, muscularis propria and subserosal connective tissue, extending to the peritoneal surface.(pT4a.) Margins: Final anastomotic do not appear negative for carcinoma. Residual carcinoma is identified in en face sections of the proximal margin.(discohesive tumor cells in the submucosa.) Treatment effect: Evident tumor regression but with extensive residual carcinoma, (partial response, score 2-3. LV I: Identified. Additional findings: Extensive tumor infiltrates omental adipose tissue and is present on the peritoneal surface,(pM1). Regional lymph nodes: Number examined: 5. Number positive: 2. Ancillary studies: HER2 fish testing is negative. Pathologic stage: Following preop neoadjuvant therapy. Primary tumor:ypN1. Metastatic disease:ypM1. 3. Completed Taxol and Ramucirumab, cycle 6 day 15 on 09/09. Interval History Interval history: Sheryl Espinoza is a pleasant 67 year old lady here for a follow-up visit. She was in house between 04/24 and 05/01. Discharge summary: 67-year-old female with history of metastatic gastric adenocarcinoma s/p total gastrectomy w/ Melyssa en Y reconstruction, HTN, T2DM presenting to the ED from Dr. Cisneros's office for concern of difficulty managing nephrostomy tubes. Patient was seen in this ED on 04/13, and transferred to [facility] in [place] for further management of significant biliary tract and urinary tract obstruction. Patient was discharged home from [facility] on , was told to change dressings around biliary and nephrostomy drains after 3 days. states that VNA has not been to their home yet to address this. Patient complains of chronic right upper quadrant abdominal pain as well as nausea. She denies vomiting or diarrhea. She denies fevers. She denies chest pain, palpitations, shortness of breath. Patient and state that she is tolerating small amounts of p.o. fluids but has not been eating. Patient reports that the long-term plan is additional chemotherapy. She is currently on oxycodone to manage her pain, ER discussed with Urology who recommended admit to Medicine with cultures and will see in a.m.; given a g ceftriaxone after cultures obtained. Admit for further management Recent percutaneous transhepatic biliary drainage 04/17/23 at [facility] in [place], [place] for malignant biliary obstruction; also had bilateral nephrostomy tubes for malignant ureteral obstruction. She was sent in with difficulty managing nephrostomy tubes + failure to thrive. Hospital course by problem: Metastatic gastric adenoCA with malignant biliary + urinary obstruction - 04/25/23: bilateral nephrostomy tube removal and ureteral stent change by Urology. - 04/27/23: biliary stent patent per IR; external drain removed. Monitoring LFTs and should recheck on 05/03/23. CA-associated pain: Start MSSR 15 mg q8h, oxycodone 5 mg q4h for breakthrough pain. Prescriptions provided upon discharge. Complicated UTI:Ceftriaxone given 04/24/23-04/27/23, but UCx grew Enterococcus faecalis. Changed to ampicillin 04/27/23 and discharged om amoxicillin, total course 10 days. Was discharged home with VNA services. She does not feel too well. She feels rather fatigued. She has had right upper quadrant pain for which she is on MS Contin 15 mg twice a day. She takes oxycodone once a day as needed for breakthrough. She gets heartburn. Denies diarrhea. No gross blood in the stools. She does not have a good appetite. She has lost weight. She is trying protein shakes. Denies any chest pain or trouble with breathing. She has a Simeon in. She has visiting nurses at home. She is getting physical therapy as well. Her spirits are down. Rest of the review of systems is unremarkable. PAST HISTORY: She had had more difficulty with swallowing. She had an upper endoscopy on January [address] Fields , her note: ESOPHAGUS: Tortuous esophagus with increased tertiary contractions without stricture or ring. Normal appearing anastomosis and a fibrotic ring noted at the anastomotic site without narrowing - biopsied.? Empiric baloon dilation of esophago-jejunal anstomosis with a 20 mm (60F) CRE balloon x 60 seconds and no tear noted. STOMACH: surgically removed Plan: Further evaluation with a barium swallow if pt continues to have dysphagia symptoms. INTERIM HISTORY: She saw ENT for her tongue lesion. They did not feel it was serious. She had ongoing intermittent dysphagia. Sometimes food appeared to sit in the middle of the chest. Sometimes it would come up. This happened 2 to 3 times a week. Carafate was helpful. She then underwent an upper endoscopy with dilatation on 02/25, by Dr. Fields: Esophagus: Tortuous esophagus with increased tertiary contractions without stricture or ring. Normal appearing anastomosis and a fibrotic ring noted at the anastomotic site without narrowing - biopsied.? Empiric balloon dilation of esophago-jejunal anstomosis with a 20 mm (60F) CRE balloon x 60 seconds and no tear noted. Stomach:? Surgically removed Jejunum: Afferent and efferent limbs of melyssa loop were examined and appeared normal. Intervention: Biopsies and balloon dilation as noted above Impression and Post Procedure Diagnosis: Endoscopy Findings: ESOPHAGUS: Tortuous esophagus with increased tertiary contractions without stricture or ring. Normal appearing anastomosis and a fibrotic ring noted at the anastomotic site without narrowing - biopsied.? Empiric baloon dilation of esophago-jejunal anstomosis with a 20 mm (60F) CRE balloon x 60 seconds and no tear noted. STOMACH: surgically removed Since then she has had improvement in her symptoms. Previous history: Back in September, she had started noticing some difficulty swallowing, again. She had previously had this but it had improved after her endoscopy and dilatation back in June. She was referred to GI for upper endoscopy with dilatation. She had that done on 09/[address] Kay: Balloon dilatation of esophageal jejunal anastomosis with a 19 mm CRE balloon was done. Upper esophagus then dilated to 18 mm with resistance felt and superficial tears noted with heme. No evidence for tumor in the gastric remnant. Since the procedure, her swallowing has gotten better. She has started gaining weight. She denies heartburn or indigestion. It is difficult for her to eat, especially at one sitting. She tries to snack here in there. This has been going on since the surgery. She takes famotidine in the morning. Sometimes she gets epigastric pain for which she takes oxycodone. She uses it sparingly, especially at night. That is only way she can sleep 4-5 hours. Tylenol is not that effective. PAST HISTORY: She had surgery done. She initially had an endoscopic ultrasound by Dr. Blanco, in November,. There were no lesions seen. The random biopsies of the stomach lining were negative. She then underwent surgery on 12/[address] Rajan. 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 Tumor site: Residual tumor most prominent along the greater curvature. Tumor size: A distinct tumor mass is not identified grossly. 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 Histologic type: Diffuse type(signet ring carcinoma.) Histologic grade: G3, poorly differentiated. Tumor extension: Tumor invades mucosa, submucosa, muscularis propria and subserosal connective tissue, extending to the peritoneal surface.(pT4a.) Margins: Final anastomotic do not appear negative for carcinoma. Residual carcinoma is identified in en face sections of the proximal margin.(discohesive tumor cells in the submucosa.) Treatment effect: Evident tumor regression but with extensive residual carcinoma, (partial response, score 2-3. LV I: Identified. Additional findings: Extensive tumor infiltrates omental adipose tissue and is present on the peritoneal surface,(pM1). Regional lymph nodes: Number examined: 5. Number positive: 2. Ancillary studies: HER2 fish testing is negative. Pathologic stage: Following preop neoadjuvant therapy. Primary tumor:ypN1. Metastatic disease:ypM1. Previous history: She was admitted to the hospital back towards the end of February,, with symptoms of acute diverticulitis and UTI. She had presented with 3 days history of left flank pain and dysuria. Abdominal pain was accompanied by decreased appetite nausea and 1 episode of vomiting on 02/27. CT scan of the abdomen revealed: 1.Short segment mural thickening and pericolonic infiltrative changes in the proximal descending colon most consistent with acute diverticulitis or short segment colitis. 2. Mild left pelvo- caliectasis, without obstructing abnormality could be secondary to left ureteropelvic junction stenosis. Left renal cyst demonstrated benign features. Nonobstructing right upper pole intrarenal calculus. 3. mild free fluid in the pelvis is presumed secondary to colonic findings. 4. Very small hiatus hernia. Patient was started on IV antibiotics and admitted. In addition she was noted to have a urinary tract infection. Blood cultures showed Gram-negative rods, likely bacteremia from the UTI. She did note improvement from abdominal pain from 02/14 to 4/10 the following day. She also complained of heartburn and odynophagia of for a few days. She was seen by GI. Recommendation was to continue IV antibiotics until abdominal pain improves. Start oral omeprazole for heartburn and odynophagia. To be scheduled for an upper endoscopy and colonoscopy, in 5-6 weeks time, after resolution of the diverticulitis. This was done on 04/24. Pathology revealed: Stomach body biopsy: Poorly differentiated carcinoma. Morphology and immunophenotype are not 100% specific but raise the possibility of metastatic lobular carcinoma of the breast. Other primary sources include gastric and other upper GI locations. Family history: Dad had pancreatic cancer at the age of 67. Mom had non-Hodgkin's lymphoma. 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 She has 3 children. She smoked as a teenager. She rarely drinks. Review of Systems - Constitutional Reports system reviewed and no additional complaints, except as documented, Reports anorexia, Reports fatigue, Reports lack of energy, Reports malaise, Reports poor appetite, Reports weight loss, Denies excessive sweating, Denies fever(s), Denies night sweats - Eyes Reports system reviewed and no additional complaints, except as documented - ENT Reports system reviewed and no additional complaints, except as documented - Cardiovascular Reports system reviewed and no additional complaints, except as documented - Respiratory Reports no additional respiratory complaints - Gastrointestinal Reports system reviewed and no additional complaints, except as documented - Genitourinary Reports no additional female genitourinary complaints - Musculoskeletal Reports system reviewed and no additional complaints, except as documented - Integumentary/Breasts Skin/Breast: Reports no additional skin complaints - Neurologic Reports system reviewed and no additional complaints, except as documented, Reports hearing normal, Denies weakness - Psychiatric Reports system reviewed and no additional complaints, except as documented - Endocrine Reports no additional endocrine complaints - Hematologic/Lymphatic Reports system reviewed and no additional complaints, except as documented - Allergic/Immunologic Reports system reviewed and no additional complaints, except as documented [facility] Medical History: Medical History (Last Reviewed 05/16/23 @ 09:04 by Noe Escobar) Dehydration fever Essential hypertension Gastric cancer History of cellulitis Hx of diverticulitis of colon Lab test negative for COVID-19 virus Type 2 diabetes mellitus with hyperglycemia Functional capacity: wheelchair bound Patient : No Family History: Family History (Last Reviewed 05/16/23 @ 09:04 by Noe Escobar) Father Pancreatic cancer Mother NHL (non-Hodgkin's lymphoma) Maternal Grandfather Prostate cancer Maternal Grandmother Diabetes Heart disease Paternal Grandfather Diabetes Son Asthma Surgical History: Surgical History (Last Reviewed 05/16/23 @ 09:04 by Noe Escobar) H/O tubal ligation History of esophagogastroduodenoscopy (EGD) History of gastrectomy Hx of appendectomy Hx of colonoscopy Hx of endoscopy Hx of tonsillectomy S/P cholecystectomy Onset Date: ~1988 S/P right knee arthroscopy Onset Date: ~2002 Social History: Social History (Last Reviewed 05/16/23 @ 09:04 by Noe Escobar) Living Situation History: Household Members: Family Housing: House Are you a primary career services director to a significant other at home: No Do you presently have visiting nurse or other home services: Yes Do you presently have visiting nurse or other home services comment: VNA's and home health. 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 Performance Status ECOG Performance Status: 2 Home Medications and Allergies Current Medications: Current Medications Potassium Chloride/Sodium Chloride (Kcl 20 Meq In 0.9 % Sodium Chl) 20 meq in 1,000 mls @ 500 mls/hr IVCONT .Q2H [facility] Last Infusion: 05/16/23 12:43 Dose: Infused Home Medications Medication Instructions Recorded Confirmed Type multivitamin 1 tab PO DAILY 05/11/20 05/16/23 History cholecalciferol (vitamin D3) 25 25 mcg PO DAILY 04/13/23 05/16/23 History mcg (1,000 unit) tablet cyanocobalamin (vitamin B-12) 5,000 mcg sublingual DAILY 04/13/23 05/16/23 History 5,000 mcg sublingual tablet lisinopril 10 mg tablet 10 mg PO DAILY@2300 04/13/23 05/16/23 History metformin 500 mg tablet 500 mg PO DAILY@1500 04/13/23 05/16/23 History Allergies Allergy/AdvReac Type Severity Reaction Status Date / Time meperidine [From Demerol] Allergy Severe Swelling Verified 05/16/23 09:04 Exam Vital signs: Vital Signs Temp 97.3 F 02/09/23 09:32 Pulse 114 H 05/16/23 09:04 Resp 18 02/09/23 09:32 BP 111/65 05/16/23 09:04 Pulse Ox 96 05/16/23 09:04 O2 Del Method Room Air 05/16/23 09:04 Intake & Output 05/15/23 05/16/23 05/16/23 18:59 06:59 18:59 Intake Total 1000 / 1000 Balance 1000 / 1000 Intake: Intake, IV Amount 1000 / 1000 KCl 20 mEq in 0.9 % Sodium ChL 1000 / 1000 20 meq In 1,000 ml @ 500 mls/hr IVCONT .Q2H [facility] Rx#:[id number] Weight 58.6 kg BMI result Body Mass Index 22.2 - Constitutional Present: no acute distress - Routine HEENT Exam Head: Present: normal inspection Eye: Present: normal appearance ENT: Present: mucous membranes moist - Routine Neck Exam Present: full ROM - Routine Respiratory Exam Present: CTAB - Routine Cardiovascular Exam Cardiovascular: Present: RRR, S1, S2 - Routine Abdominal Exam Present: soft, nontender - Routine Rectal Exam Patient deferred: digital exam - Routine Extremities Exam Present: nontender - Routine Back/Spine/Pelvis Exam Back/Spine: Present: full ROM - Routine Skin Exam Present: intact - Routine Neurological Exam Present: alert, oriented X3, vision grossly intact - Detailed Neurological Exam: Coma Scale Eye Opening: Spontaneous (4) - Routine Psychiatric Exam Present: normal affect Data - Labs CBC & Chem 7: 05/16/23 09:15 05/16/23 09:15 Assessment and Plan Patient Active problem list reviewed?: Yes (1) Gastric cancer Status: Inactive (2) Gastric cancer Problem details: Gastrectomy, omentectomy, esophagojejunostomy, Melyssa-en-Y for gastric cancer Status: Inactive Assessment and plan: This is a pleasant 64-year-old lady with a history of diabetes and diverticulosis. She had epigastric pain, off and on for a few months. She tells me she had GERD symptoms however she stopped eating sweets and those resolved. This was about 13 years ago. She was started on omeprazole recently which has been helping. Back in February she was admitted with a bout of diverticulitis. CT scan of the abdomen revealed: 1. Short segment mural thickening and pericolonic infiltrative changes in the proximal descending colon most consistent with acute diverticulitis or short segment colitis as a definitive diverticulum is not seen. 2. Mild left pelvocaliectasis without obstructing abnormality could be secondary to left ureteropelvic junction stenosis. Left renal cysts demonstrate benign features. Nonobstructing right upper pole intrarenal calculus. 3. Mild free fluid in the pelvis is presumed secondary to the colonic findings. 4. Very small hiatal hernia. Subsequently an upper endoscopy and colonoscopy was arranged. This was done on 04/[address] Fields. Colonoscopy was negative however upper endoscopy revealed: Poorly differentiated carcinoma, in the stomach. Possibility of metastatic lobular carcinoma of the breast was raised. Her breast exam was normal however, she tells me she has not had a mammogram in about 20 years. As per NCCN guidelines workup for gastric carcinoma that is recommended includes: 1. PET scan. 2. Endoscopic ultrasound to determine if disease is early versus locally advanced stage. [facility]: No mammographic evidence of malignancy. I checked baseline labs, including the tumor markers: CEA 5.1, Ca 27.29 103. l proceeded with a PET scan for staging. This revealed: No foci of abnormal FDG activity are visualized. There are no abnormalities visualized suspicious for metastatic or other malignant lesions. l requested endoscopic ultrasound for exact pathological staging. This was scheduled at [facility], by Dr. Blanco. The area of abnormality was very subtle. He took several biopsies. Unfortunately they came back positive. She has seen Dr. Rajan, to consider surgery by minimally invasive method. It was decided to proceed with FLOT chemotherapy in the neoadjuvant setting. She was started on it a few months ago. She has tolerated it reasonably well. She had a CT scan of the chest abdomen pelvis on 10/19 which revealed: remarkable CT chest with no pulmonary nodule or mass. Right central venous port tip is in the distal SVC. Moderate sized hiatal hernia. There is a large stool in the colon suggestive of severe constipation. No abnormal sized abdominal lymph nodes seen. Distended urinary bladder. She underwent endoscopic ultrasound since imaging was not very helpful. This was done on November [address] Blanco. There were no lesions seen. The random biopsies of the stomach lining were negative. She then underwent surgery on 12/[address] Rajan. 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 Tumor site: Residual tumor most prominent along the greater curvature. Tumor size: A distinct tumor mass is not identified grossly. 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 Histologic type: Diffuse type(signet ring carcinoma.) Histologic grade: G3, poorly differentiated. Tumor extension: Tumor invades mucosa, submucosa, muscularis propria and subserosal connective tissue, extending to the peritoneal surface.(pT4a.) Margins: Final anastomotic do not appear negative for carcinoma. Residual carcinoma is identified in en face sections of the proximal margin.(discohesive tumor cells in the submucosa.) Treatment effect: Evident tumor regression but with extensive residual carcinoma, (partial response, score 2-3. LV I: Identified. Additional findings: Extensive tumor infiltrates omental adipose tissue and is present on the peritoneal surface,(pM1). Regional lymph nodes: Number examined: 5. Number positive: 2. Ancillary studies: HER2 fish testing is negative. Pathologic stage: Following preop neoadjuvant therapy. Primary tumor:ypN1. Metastatic disease:ypM1. She has recuperated from the surgery. Gradually advanced her diet. CEA level: 5.60, previously, 5.8, 4.40, prior to that. I discussed further treatment options with her. The plan was made to proceed with palliative chemotherapy, in the second-line setting, as delineated in the Perdido trial. According to NCCN guidelines preferred regimen include: Paclitaxel 80 mg, on days 1, 8 and 15 + Ramucirumab 8 mg/kg, week 1 and 15 Q 28 days. l tried to see if I can substitute Abraxane for the paclitaxel. However unfortunately Abraxane was not available, then, from the student recruiter. Overall she has been tolerating the treatment reasonably well. She had a CT scan of the chest abdomen pelvis on 07/12: Question postsurgical change to the stomach and small esophageal hernia. No definite mass appreciated. No enlarged lymph nodes. Stool throughout the colon suggestive of constipation. Question mild wall thickening or colitis of the cecum. She had an upper endoscopy on 06/[address] Fields which revealed: Small bowel biopsy: Normal limits, negative for celiac disease. Anastomotic biopsy: Squamocolumnar mucosa with moderate chronic active inflammation. There was no evidence for residual carcinoma. This is encouraging. She had her cycle 6 day 15, on 09/09. She tolerated the treatment reasonably well. Lately she had noticed some trouble swallowing. She was referred to GI for upper endoscopy with dilatation. She had that done on 09/[address] Kay: Balloon dilatation of esophageal jejunal anastomosis with a 19 mm CRE balloon was done. Upper esophagus then dilated to 18 mm with resistance felt and superficial tears noted with heme. No evidence for tumor in the gastric remnant. She had a PET scan last week, on 09/29: 1. There is a focus of increased FDG activity in the right anterior aspect of the tongue with no associated CT abnormality. The finding is nonspecific, but was not present on the prior PET CT scan. This could be physiological muscular activity in the tongue, but the asymmetry and intensity is suspicious for a lesion at this site. Correlation with direct visualization is recommended for initial follow-up. This could also be further characterized with IV contrast enhanced CT scan of the neck soft tissues. 2. No other abnormalities suspicious for metastatic or other malignant lesions are noted. 3. Diffuse vascular calcifications including coronary. It is reassuring that the CT scan did not light up in the abdominal area. She does have the small ulcer under the right tongue border. EGD on 09/17: Findings: Larynx:? Normal Esophagus:? Tortuous esophagus with minimal contractions with retained food noted. fibrotic ring noted at esophagojejunal anastomosis.? Empiric baloon dilation of esophago-jejunal anstomosis with an 19 mm CRE balloon with no tear noted. Upper esophagus then dilated to 18 mm with resistance felt and superficial tear noted with heme. Stomach: surgically removed Jejunum: Afferent and efferent limbs of melyssa loop were examined and appeared normal. 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 On 11/05 it was 3.70. Since the CT scan, upper endoscopy and PET scan, are negative, she wanted to take a break from chemotherapy. I referred her to Dr. Kay to look at the tongue lesion. He referred her for ENT consultation. ENT appointment is in March. Meanwhile to try zinc. I gave her Magic mouthwash to see if it is some sort of an infectious lesion. That has resolved. She is doing well however has had recurrence of her intermittent dysphagia. She even has occasional vomiting. CEA level: 3.50 today, previously, 4.1, before that it was 3. She underwent an upper endoscopy with dilatation on 02/25/22. That helped. Fortunately no residual carcinoma was seen in the stomach. She was getting dysphagia. She underwent an upper endoscopy with dilatation on 02/03. CEA: 4.50, previously 3.60. She was in house between 04/24 and 05/01. Discharge summary: 67-year-old female with history of metastatic gastric adenocarcinoma s/p total gastrectomy w/ Melyssa en Y reconstruction, HTN, T2DM presenting to the ED from Dr. Cisneros's office for concern of difficulty managing nephrostomy tubes. Patient was seen in this ED on 04/13, and transferred to [facility] in [place] for further management of significant biliary tract and urinary tract obstruction. Patient was discharged home from [facility] on , was told to change dressings around biliary and nephrostomy drains after 3 days. states that [facility]NA has not been to their home yet to address this. Patient complains of chronic right upper quadrant abdominal pain as well as nausea. She denies vomiting or diarrhea. She denies fevers. She denies chest pain, palpitations, shortness of breath. Patient and state that she is tolerating small amounts of p.o. fluids but has not been eating. Patient reports that the long-term plan is additional chemotherapy. She is currently on oxycodone to manage her pain, ER discussed with Urology who recommended admit to Medicine with cultures and will see in a.m.; given a g ceftriaxone after cultures obtained. Admit for further management Recent percutaneous transhepatic biliary drainage 04/17/23 at [facility] in [place], [place] for malignant biliary obstruction; also had bilateral nephrostomy tubes for malignant ureteral obstruction. She was sent in with difficulty managing nephrostomy tubes + failure to thrive. Hospital course by problem: Metastatic gastric adenoCA with malignant biliary + urinary obstruction - 04/25/23: bilateral nephrostomy tube removal and ureteral stent change by Urology. - 04/27/23: biliary stent patent per IR; external drain removed. Monitoring LFTs and should recheck on 05/03/23. Patient is still quite fatigued. Her appetite is not that good. Her pain is under control with the current regimen. I offered palliative chemotherapy. I have requested molecular testing and NGS on her gastric tumor from [facility]. For now, can start out with Irinotecan. In view of the elevated bilirubin I will use the 50 milligram/meter squared weekly regimen. Her potassium is low today and she has not been drinking too well. PLAN: I gave her some hydration along with IV potassium supplements. She and her were given information on the Irinotecan. They are going to discuss it and then get back to me. Molly in the pharmacy is going to create the regimen will then get a prior authorization and get her started early next week. All her and her 's questions were answered to their satisfaction. They are all set for the prescriptions for now. She will return next week to startthe treatment and for a follow up. She had her port flushed today. Thank you, CC: Dr. Clark. Dr. Fields. Dr. De Leon. Dr. Rajan - Time Spent With Patient Time Spent with Patient (in minutes): 30
--- NOTE | 2023-05-18 08:19 | HO.HEMONCPA ---
KELLIE APPROVED FOR IRINOTECAN [id number] AUTH [id number] DOS 05/22/23 - 05/22/24
--- NOTE | 2023-05-24 10:51 | MHC.HEMONC ---
Triage call: Patient's called to reschedule chemotherapy to next week. reports he is currently trying to obtain wheelchair for patient as she is very weak. [facility]NA is helping to coordinate wheelchair. Chemotherapy rescheduled to Monday05/30/23 at 1000am.
--- NOTE | 2023-05-29 12:09 | MHC.HEMONC ---
Triage call-received call from pt's husbands who states pt is too weak to come for treatment. Declines IV hydration at this time. Pt informed to call if pt's wants to receive IV hydration-verbalizes understanding of information given
--- NOTE | 2023-06-13 15:48 | MHC.HEMONC ---
Telephone call to pts Jas. He states that Sehryl is not doing well. He says she is having difficulty speaking, and continues to be unable to walk. He states he continues to give her oxycodone and oxycontin, but will need refill for oxycontin. At this time, Sheryl receives visit from [facility], but Jas is caring for Sheryl most of the time. Will update Dr Cisneros.
--- NOTE | 2023-06-20 16:31 | MHC.HEMONC ---
Spoke with pts Jas. Pt continues to be weak. He states he has been giving her water and yogurt, but she is unable to eat very much. She still has VNA coming to the house. declines further help at home at this time. Dr Cisneros updated.
--- NOTE | 2023-06-28 09:21 | MHC.HEMONC ---
I called pt home and spoke to pt , Jas. He said that Sheryl is remaining in bed and has no new changes. She is weak and taking small amounts of food. Her pain is controlled at the moment with Morphine and Oxycodone. He said she is taking the oxycodone every 4 hours. I asked him if I could set up homecare for them (Hospice or Palliative Nursing) and he said maybe next week - this week is busy . I told him I will call him Monday. I also asked him to be sure he will call us if Sheryl needs anything.
--- NOTE | 2023-07-03 10:19 | MHC.HEMONC ---
I called Jas, pt , per our conversation last week. Sheryl has been in bed three weeks now according to him. She is sleeping a lot. Taking few sips and bites. We discussed role of hospice nursing as she is unable to leave her bed. I explained it would be a support to him as he cares for her. I asked him if he thought she was dying and he said probably . I told him how airplane designer could take care of things if she dies at home (pronouncement etc) and that Dr Cisneros would still be directing her care as needed. He agreed for me to send in referral. Dr Cisneros advised.
== END 2023-07-04 | disposition home or self-care (01) ==
LOC: HO.ONC 09:00
PROVIDERS: PCP Internal Medicine; Referring Provider Internal Medicine Gastroenterology; Visit Provider Internal Medicine Medical Oncology
DX: C16.2 Malignant neoplasm of body of stomach (principal); C77.2 Secondary and unspecified malignant neoplasm of intra-abdominal lymph nodes; E87.6 Hypokalemia; K22.89 Other specified disease of esophagus; R13.10 Dysphagia, unspecified; Z90.3 Acquired absence of stomach [part of]; Z93.6 Other artificial openings of urinary tract status; C78.6 Secondary malignant neoplasm of retroperitoneum and peritoneum
CPT/HCPCS: 36415; 36591; 80053; 80076; 81001; 81003; 82248; 82378; 82607; 82728; 82746; 82947; 83540; 84156; 85007; 85025; 85027; 85610; 86300; 96368; 96372; 96375; 96377; 96413; 96415; 96416; 96417; 96523; 99204; 99213; 99214; J0640; J0690; J1100; J1200; J1642; J2405; J2505; J2506; J3480; J9171; J9190; J9263; J9267; J9308

== ENCOUNTER 2023-07-04 02:16 | Emergency (ER) | payer MEDICARE, SELFPAY ==
[2023-07-04 02:25] VITALS: BMI 21.5
--- NOTE | 2023-07-04 02:27 | ED.CPR ---
HPI - CPR General Chief Complaint: Cardiac Arrest/CPR Stated Complaint: CARDIAC ARREST Time Seen by Provider: 07/04/23 02:26 Source: EMS Mode of arrival: EMS History of Present Illness HPI narrative: Patient is 67 years old with history of metastatic gastric adenocarcinoma post total gastrectomy hypertension type 2 diabetes in hospice care DNR DNI was gasping for air for last few hours going downhill just prior to arrival had cardiac arrest unresponsive in hence EMS were called by family started CPR as the could not find proof of DNR DNI although family was at home saying that she is DNR patient received multiple doses of epinephrine with transient response went to V-tach was given shock and amiodarone IV on arrival patient was pulseless pupils dilated no signs of life teletypesetter monitor showing PEA. Related Data Home Medications Medication Instructions Recorded Confirmed multivitamin 1 tab PO DAILY 05/11/20 05/16/23 cholecalciferol (vitamin D3) 25 25 mcg PO DAILY 04/13/23 05/16/23 mcg (1,000 unit) tablet cyanocobalamin (vitamin B-12) 5,000 mcg sublingual DAILY 04/13/23 05/16/23 5,000 mcg sublingual tablet lisinopril 10 mg tablet 10 mg PO DAILY@2300 04/13/23 05/16/23 metformin 500 mg tablet 500 mg PO DAILY@1500 04/13/23 05/16/23 Previous Rx's Medication Instructions Recorded pen needle, diabetic 31 gauge x #100 ea 06/15/2007/21 (BD Ultra-Fine Mini Pen Needle) flash glucose scanning reader #1 ea 09/11/22 (FreeStyle Michele 14 Day [place]) morphine 15 mg tablet,extended 15 mg PO Q8H #90 tabs 04/30/23 release morphine 30 mg tablet,extended 30 mg PO Q8H #60 tabs 06/15/23 release oxycodone 5 mg tablet 5 mg PO Q4H PRN Breakthrough Pain, 06/15/23 Mild #60 tabs Allergies Allergy/AdvReac Type Severity Reaction Status Date / Time meperidine [From Demerol] Allergy Severe Swelling Verified 05/16/23 09:04 Review of Systems Review of Systems: Yes Unobtainable due to mental condition PMFSH Past Medical History Medical History Dehydration fever Gastric cancer Essential hypertension Type 2 diabetes mellitus with hyperglycemia Lab test negative for COVID-19 virus Hx of diverticulitis of colon History of cellulitis Surgical History Hx of endoscopy History of gastrectomy Hx of colonoscopy History of esophagogastroduodenoscopy (EGD) Hx of appendectomy S/P right knee arthroscopy (~2002) Hx of tonsillectomy H/O tubal ligation S/P cholecystectomy (~1988) Family History Family History Father Pancreatic cancer Mother NHL (non-Hodgkin's lymphoma) Maternal Grandfather Prostate cancer Maternal Grandmother Diabetes Heart disease Paternal Grandfather Diabetes Son Asthma Social History Social History Household Members: Family Housing: House Are you a primary congregational care pastor to a significant other at home: No Do you presently have visiting nurse or other home services: Yes (VNA's and home health.) Alcohol intake: never Comment: decreasing fever Patient Tobacco Use Status: Never used Tobacco e-Cigarette/Vaping Use: Never Used Second Hand Smoke Exposure: No Advance Directives: Yes Advance Directives on File: Yes Advance Directives Date on File: 08/11/20 service: No Current occupational status: unemployed and previously employed 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 Oral Mucosa moist Neck: Normal inspection. Neck supple. CVS: No spontaneous cardiac activity PEA on teletypesetter monitor, no palpable pulse Respiratory: No spontaneous respiration with Ambu bag bilateral equal air entry Abdomen: Soft nondistended Skin: Skin warm and dry. Medical Decision Making Medical Decision Making MDM Narrative: Patient metastatic gastric carcinoma DNR DNI hospice care CPR continued as there was no DNR papers before intubation on arrival patient with no spontaneous cardiac activity no spontaneous respiration cardiac monitoring showing PEA patient pronounced at 02:21 a.m. family brought DNR paper at that time Discharge Plan Discharge Clinical Impression: Cardiac arrest Patient Disposition: Interventions: Organ Donor Nursing Doc/Post Mortem care Last Done: 07/04/23 02:41 Discharge Date/Time: 07/04/23 04:30 Date/Time: 07/04/23 02:21
--- NOTE | 2023-07-04 02:27 | PC.NURSE ---
confirmed with family by two rn's pt is a dnr. family was also in the parking lot as they answered the phone and now are in the family room waiting to talk with the provider.
--- NOTE | 2023-07-04 03:45 | PC.NURSE ---
home is [place] [facility].
[2023-07-04 06:29] LABS: Glucose, Whole Blood < 10 mg/dL (60-115)
== END 2023-07-04 04:30 | disposition expired ==
PROVIDERS: Emergency Provider Internal Medicine; PCP Internal Medicine
DX: I46.9 Cardiac arrest, cause unspecified (principal); Z79.899 Other long term (current) drug therapy
CPT/HCPCS: 82947; 99283; 99284